=== PATIENT | female | born 2000 | race Caucasian/White ===

== ENCOUNTER 2018-02-11 16:06 | Emergency (ER) | payer BC, SELFPAY ==
[2018-02-11 16:07] VITALS: BP 117/72; PULSE 84; RESP 16; TEMP 36.3; O2SAT 95; BMI 22.1
--- NOTE | 2018-02-11 16:24 | ED.DCSUM_ITS ---
- ER Visit Summary Date of Service: 02/11/18 Chief Complaint: Left ankle injury History of Present Illness: The patient is a 17 F presenting with left ankle injury. Patient states she stepped down off a trampoline yesterday and rolled her left ankle. She fell to the ground but did not hit her head or lose consciousness. She has been using ice, crutches and ibuprofen at home. She has history of multiple previous ankle sprains in the past. Physical Examination: Vitals are stable. Patient is afebrile. Alert no acute distress. HEENT exam is unremarkable. Lungs are clear and equal bilaterally. Heart is regular rate and rhythm. Extremities left lateral ankle tenderness, no fifth metatarsal tenderness, no proximal fibular tenderness. Garsia test negative. Skin is warm and dry. Remainder of exam is unremarkable. Emergency Department Course and Treatment: Ice pack was applied. X-ray of the left ankle shows no acute process. She is advised to ice and elevate. Advised to continue using crutches and NSAIDs for pain. Advised to follow-up with her primary care physician. Advised return ED for worsening complaints. Disposition: Discharge home Impression: Left ankle sprain This note was generated with [email or web address] dictation software. It may contain incorrect words, spelling, and punctuation that were not noted in review of the chart prior to signing ED Disposition - Plan for ED Patient: Chief Complaint: Lower Extremity Injury Referrals: Jose Kwon DO [Primary Care Provider] -
--- NOTE | 2018-02-11 16:25 | RAD_ITS ---
STUDY: X-RAY - LEFT ANKLE REASON FOR EXAM: Female, 17 years old. Injury. Pain. TECHNIQUE: 3 view(s) of the ankle. COMPARISON: None. FINDINGS: Normal visualized distal tibia and fibula. Normal medial and lateral malleoli. Normal tibiotalar articulation and ankle mortise. Normal visualized talus and calcaneus. The visualized subtalar, talonavicular, calcaneocuboid and tarsal articulations are normal. There is no demonstrated fracture. The soft tissue structures are unremarkable. RAD/Ankle min 3 Views IMPRESSION: Normal x-ray examination of the ankle. Electronically Signed: Max Traylor MD at 17:16 EDT , Service support ,
--- OUTSIDE RECORDS SUMMARY | 2018-02-11 17:15 | XMS RPT_ITS | Clinical Summary ---
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 STORY EDITOR amenorrhea Headaches 26121897 Active Sandy S Headache (SNOMED CT) Chayo STORY EDITOR Medications Medication Instructions Start Stop Generic Name NDC Provider Date Date MEDROXYPROGESTERONE One tablet by 2016/ MEDROXYPROGESTERONE [id number] Sandy S ACETATE 10 MG TABS mouth daily 01/31 02/05 ACETATE [place] STORY EDITOR CELEXA 40 MG TABS One tablet by CITALOPRAM [id number] Sandy S mouth daily HYDROBROMIDE [place] STORY EDITOR MAGNESIUM 400 MG One tablet by MAGNESIUM [id number] Sandy S TABS mouth daily 01/31 Chayo STORY EDITOR RIBOFLAVIN CAPS One tablet by RIBOFLAVIN CAPS [id number] Sandy S mouth daily Chayo STORY EDITOR MULTIVITAMIN LIQD One tablet by MULTIPLE [id number] Sandy S mouth daily VITAMINS-MINERALS Chayo STORY EDITOR Medications Administered No information available. Allergies, Adverse Reactions, Alerts Allergy Name Reaction Description Start Date Severity Status Provider AMOXICILLIN Hives Critical Active Sandy S [place] STORY EDITOR Results Date Name Value Unit Range Flag Description Office Visit: Annual PREG TST URN negative beta HCG, urine, semiquantitative FALLRSKASSES No Fall risk assessment MEDS REVIEW Done Documentation of current medications (procedure) ORALTOBACUSE Never Tobacco smoking status NHIS SMOK STATUS Never smoker Tobacco use [facility] Lab Report: CT/NG [facility] BY PCR GONO PCR Negative Negative Neisseria gonorrhoeae DNA [ Presence] in Unspecified specimen by Probe and target amplification method CHLAMYD PCR Negative Negative Chlamydia trachomatis DNA [ Presence] in Urine by Probe and target amplification method Plan of Care Type Date Detail Pending order *GC/Chlamydia Pending order *GC/Chlamydia Procedures Code Procedure Name Date Entry Date CPT-12626 Urine (Office) 0752-1 *GC/Chlamydia Vital Signs Date Name Value Unit Description BMI (Body Mass Index) 20.29 kg/m2 Body Mass Index [Ratio] Body Temperature 98.5 [degF] temperature E&M Body Temperature 36.94 [place] temperature in centigrade E&M BP Diastolic 65 mm[Hg] blood pressure, diastolic - 8462-4 BP Systolic 102 mm[Hg] blood pressure, systolic - 8480-6 Heart Rate 67 /min pulse rate E&M - 8867-4 Height 64 [in_us] height E&M - 8302-2 Height 162.56 cm height in centimeters E&M Respiratory Rate 16 /min respiratory rate E&M - 9279-1 Weight Measured 118.2 [lb_av] weight E&M - 3141-9 Weight Measured 53.61 kg weight in kilograms E&M
--- OUTSIDE RECORDS SUMMARY | 2018-02-11 17:15 | XMS RPT_ITS | Clinical Summary ---
:2000 Author Organization [facility], [facility] Address [address] [place] [address] Phone Care Team Providers Name Role Phone Chayo HEEL ATTACHER WOOD, Sandy S Unavailable Conditions or Problems Problem Name Problem Code Onset Status Entry Provider Comment Standard Annotate Date Date Description Std 202797024 Active Sandy S Venereal screening (SNOMED CT) / [place] disease HEEL ATTACHER WOOD screening Amenorrhea, 67498796 Active Sandy S Secondary secondary (SNOMED CT) / Chayo physiologic HEEL ATTACHER WOOD amenorrhea Headaches 24886149 Active Sandy S Headache (SNOMED CT) Chayo HEEL ATTACHER WOOD Medications Medication Instructions Start Stop Generic Name NDC Provider Date Date MEDROXYPROGESTERONE One tablet by 2016/ MEDROXYPROGESTERONE [id number] Sandy S ACETATE 10 MG TABS mouth daily 01/31 02/05 ACETATE [place] HEEL ATTACHER WOOD CELEXA 40 MG TABS One tablet by CITALOPRAM [id number] Sandy S mouth daily HYDROBROMIDE [place] HEEL ATTACHER WOOD MAGNESIUM 400 MG One tablet by MAGNESIUM [id number] Sandy S TABS mouth daily 01/31 Chayo HEEL ATTACHER WOOD RIBOFLAVIN CAPS One tablet by RIBOFLAVIN CAPS [id number] Sandy S mouth daily Chayo HEEL ATTACHER WOOD MULTIVITAMIN LIQD One tablet by MULTIPLE [id number] Sandy S mouth daily VITAMINS-MINERALS Chayo HEEL ATTACHER WOOD Medications Administered No information available. Allergies, Adverse Reactions, Alerts Allergy Name Reaction Description Start Date Severity Status Provider AMOXICILLIN Hives Critical Active Sandy S [place] HEEL ATTACHER WOOD Results Date Name Value Unit Range Flag [...] Procedures Code Procedure Name Date Entry Date CPT-92536 Urine (Office) 0752-1 *GC/Chlamydia Vital Signs Date [...]
--- OUTSIDE RECORDS SUMMARY | 2018-02-11 17:15 | XMS RPT_ITS | Clinical Summary ---
:2000 Author Organization [facility], [facility] Address [address] [place] [address] Phone Care Team Providers Name Role Phone Chayo PLANT CULTURE MANAGER, Sandy S Unavailable Conditions or Problems Problem Name Problem Code Onset Status Entry Provider Comment Standard Annotate Date Date Description Std 266935912 Active Sandy S Venereal screening (SNOMED CT) / [place] disease PLANT CULTURE MANAGER screening Amenorrhea, 22938660 Active Sandy S Secondary secondary (SNOMED CT) / Chayo physiologic PLANT CULTURE MANAGER amenorrhea Headaches 69368202 Active Sandy S Headache (SNOMED CT) Chayo PLANT CULTURE MANAGER Medications Medication Instructions Start Stop Generic Name NDC Provider Date Date MEDROXYPROGESTERONE One tablet by 2016/ MEDROXYPROGESTERONE [id number] Sandy S ACETATE 10 MG TABS mouth daily 01/31 02/05 ACETATE [place] PLANT CULTURE MANAGER CELEXA 40 MG TABS One tablet by CITALOPRAM [id number] Sandy S mouth daily HYDROBROMIDE [place] PLANT CULTURE MANAGER MAGNESIUM 400 MG One tablet by MAGNESIUM [id number] Sandy S TABS mouth daily 01/31 Chayo PLANT CULTURE MANAGER RIBOFLAVIN CAPS One tablet by RIBOFLAVIN CAPS [id number] Sandy S mouth daily Chayo PLANT CULTURE MANAGER MULTIVITAMIN LIQD One tablet by MULTIPLE [id number] Sandy S mouth daily VITAMINS-MINERALS Chayo PLANT CULTURE MANAGER Medications Administered No information available. Allergies, Adverse Reactions, Alerts Allergy Name Reaction Description Start Date Severity Status Provider AMOXICILLIN Hives Critical Active Sandy S [place] PLANT CULTURE MANAGER Results Date Name Value Unit Range Flag Description Office Visit: Annual PREG TST URN negative beta HCG, urine, semiquantitative FALLRSKASSES No Fall risk assessment MEDS REVIEW Done Documentation of current medications (procedure) ORALTOBACUSE Never Tobacco smoking status NHIS SMOK STATUS Never smoker Tobacco use [facility] Lab Report: CT/[facility] BY PCR GONO PCR Negative Negative Neisseria gonorrhoeae DNA [ Presence] in Unspecified specimen by Probe and target amplification method CHLAMYD PCR Negative Negative Chlamydia trachomatis DNA [ Presence] in Urine by Probe and target amplification method Plan of Care Type Date Detail Pending order *GC/Chlamydia Pending order *GC/Chlamydia Procedures Code Procedure Name Date Entry Date CPT-90595 Urine (Office) 0752-1 *GC/Chlamydia Vital Signs Date [...]
--- OUTSIDE RECORDS SUMMARY | 2018-02-11 17:15 | XMS RPT_ITS | Clinical Summary ---
:2000 Author Organization [facility], [facility] Address [address] [place] [address] Phone Care Team Providers Name Role Phone [place] LEAN COACH, Sandy S Unavailable Conditions or Problems Problem Name Problem Code Onset Status Entry Provider Comment Standard Annotate Date Date Description Std 894180752 Active Sandy S Venereal screening (SNOMED CT) / [place] disease LEAN COACH screening Amenorrhea, 70812190 Active Sandy S Secondary secondary (SNOMED CT) / [place]ayo physiologic LEAN COACH amenorrhea Headaches 68734093 Active Sandy S Headache (SNOMED CT) / Chayo LEAN COACH Medications Medication Instructions Start Stop Generic Name NDC Provider Date Date AVIANE 0.1-20 MG-MCG One tablet by LEVONORGESTREL-ETHIN [id number] Sandy S TABS mouth daily 02/17 YL ESTRAD Chayo LEAN COACH MEDROXYPROGESTERONE One tablet by 2016/ MEDROXYPROGESTERONE [id number] Sandy S ACETATE 10 MG TABS mouth daily 01/31 02/05 ACETATE Chay[place] LEAN COACH CELEXA 40 MG TABS One tablet by CITALOPRAM [id number] Sandy S mouth daily HYDROBROMIDE [place] LEAN COACH MAGNESIUM 400 MG One tablet by MAGNESIUM 46657128025 Sandy S TABS mouth daily 01/31 Chayo LEAN COACH RIBOFLAVIN CAPS One tablet by RIBOFLAVIN CAPS [id number] Sandy S mouth daily [place] LEAN COACH MULTIVITAMIN LIQD One tablet by MULTIPLE [id number] Sandy S mouth daily VITAMINS-MINERALS [place] LEAN COACH Medications Administered No information available. Allergies, Adverse Reactions, Alerts Allergy Name Reaction Description Start Date Severity Status Provider AMOXICILLIN Hives Critical Active Sandy S [place] LEAN COACH Results Date Name Value Unit Range Flag Description Office Visit: Annual PREG TST URN negative beta HCG, urine, semiquantitative FALLRSKAKARMAES No Fall risk assessment MEDS REVIEW Done Documentation of current medications (procedure) ORALTOBACUSE Never Tobacco smoking status NHIS SMOK STATUS Never smoker Tobacco use [facility] Lab Report: CT/[facility] BY PCR GONO PCR Negative Negative Neisseria gonorrhoeae DNA [ Presence] in Unspecified specimen by Probe and target amplification method CHLAMYD PCR Negative Negative Chlamydia trachomatis DNA [ Presence] in Urine by Probe and target amplification method Plan of Care Type Date Detail Pending order *GC/Chlamydia Pending order *GC/Chlamydia Procedures Code Procedure Name Date Entry Date CPT-12304 Urine (Office) 0752-1 *GC/Chlamydia Vital Signs Date [...]
--- OUTSIDE RECORDS SUMMARY | 2018-02-11 17:15 | XMS RPT_ITS | Clinical Summary ---
:2000 Author Organization [facility], [facility] Address [address] [place] [address] Phone Care Team Providers Name Role Phone Chayo PREVENTIVE MEDICINE PHYSICIAN, Sandy S Unavailable Conditions or Problems Problem Name Problem Code Onset Status Entry Provider Comment Standard Annotate Date Date Description Std 167187132 Active Sandy S Venereal screening (SNOMED CT) / [place] disease PREVENTIVE MEDICINE PHYSICIAN screening Amenorrhea, 61309507 Active Sandy S Secondary secondary (SNOMED CT) / [place] physiologic PREVENTIVE MEDICINE PHYSICIAN amenorrhea Headaches 77514539 Active Sandy S Headache (SNOMED CT) [place] PREVENTIVE MEDICINE PHYSICIAN Medications Medication Instructions Start Stop Generic Name NDC Provider Date Date MEDROXYPROGESTERONE One tablet by 2016/ MEDROXYPROGESTERONE [id number] Sandy S ACETATE 10 MG TABS mouth daily 01/31 02/05 ACETATE [place] PREVENTIVE MEDICINE PHYSICIAN CELEXA 40 MG TABS One tablet by CITALOPRAM [id number] Sandy S mouth daily HYDROBROMIDE [place] PREVENTIVE MEDICINE PHYSICIAN MAGNESIUM 400 MG One tablet by MAGNESIUM 43342340230 Sandy S TABS mouth daily 01/31 Chayo PREVENTIVE MEDICINE PHYSICIAN RIBOFLAVIN CAPS One tablet by RIBOFLAVIN CAPS 21826675276 Sandy S mouth daily [place] PREVENTIVE MEDICINE PHYSICIAN MULTIVITAMIN LIQD One tablet by MULTIPLE [phone] Sandy S mouth daily VITAMINS-MINERALS [place] PREVENTIVE MEDICINE PHYSICIAN Medications Administered No information available. Allergies, Adverse Reactions, Alerts Allergy Name Reaction Description Start Date Severity Status Provider AMOXICILLIN Hives Critical Active Sandy S [place] PREVENTIVE MEDICINE PHYSICIAN Results Date Name Value Unit Range Flag Description Office Visit: Annual PREG TST URN negative beta HCG, urine, semiquantitative FALLRSKASSES No Fall risk assessment MEDS REVIEW Done Documentation of current medications (procedure) ORALTOBACUSE Never Tobacco smoking status NHIS SMOK STATUS Never smoker Tobacco use [facility] Plan of Care Type Date Detail Appointment 10:20 AM Sandy Domingo NP, [address], [address], [place], [address], Pending order *GC/Chlamydia Procedures Code Procedure Name Date Entry Date CPT-81084 Urine (Office) Vital Signs Date Name Value Unit Description [...]
--- OUTSIDE RECORDS SUMMARY | 2018-02-11 17:15 | XMS RPT_ITS | Clinical Summary ---
:[address] [facility], [facility] Address [address] [place] [address] Phone Care Team Providers Name Role Phone [place] FISH INSPECTOR, Sandy S Unavailable Conditions or Problems Problem Name Problem Code Onset Status Entry Provider Comment Standard Annotate Date Date Description Std 874211647 Active Sandy S Venereal screening (SNOMED CT) / [place] disease FISH INSPECTOR screening Amenorrhea, 53581229 Active Sandy S Secondary secondary (SNOMED CT) / [place] physiologic FISH INSPECTOR amenorrhea Headaches 33867044 Active Sandy S Headache (SNOMED CT) / [place] FISH INSPECTOR Medications Medication Instructions Start Stop Generic Name NDC Provider Date Date AVIANE 0.1-20 MG-MCG One tablet by LEVONORGESTREL-ETHIN [id number] Sandy S TABS mouth daily 02/17 YL ESTRAD Chayo FISH INSPECTOR MEDROXYPROGESTERONE One tablet by 2016/ MEDROXYPROGESTERONE [id number] Sandy S ACETATE 10 MG TABS mouth daily 01/31 02/05 ACETATE [place] FISH INSPECTOR CELEXA 40 MG TABS One tablet by CITALOPRAM [id number] Sandy S mouth daily HYDROBROMIDE Ch[place] FISH INSPECTOR MULTIVITAMIN LIQD One tablet by MULTIPLE 07154010691 Sandy S mouth daily VITAMINS-MINERALS [place] FISH INSPECTOR RIBOFLAVIN CAPS One tablet by RIBOFLAVIN CAPS 53749219348 Sandy S mouth daily Chayo FISH INSPECTOR MAGNESIUM 400 MG One tablet by MAGNESIUM 14947437653 Sandy S TABS mouth daily 01/31 [place] FISH INSPECTOR Medications Administered No information available. Allergies, Adverse Reactions, Alerts Allergy Name Reaction Description Start Date Severity Status Provider AMOXICILLIN Hives Critical Active Sandy S [place] FISH INSPECTOR Results Date Name Value Unit Range Flag Description Office Visit: Annual PREG TST URN negative beta HCG, urine, semiquantitative FALLRSKASSES No Fall risk assessment MEDS REVIEW Done Documentation of current medications (procedure) ORALTOBACUSE Never Tobacco smoking status NHIS SMOK STATUS Never smoker Tobacco smoking status [facility] Lab Report: CT/[facility] BY PCR GONO PCR Negative Negative Neisseria gonorrhoeae DNA [ Presence] in Unspecified specimen by Probe and target amplification method CHLAMYD PCR Negative Negative Chlamydia trachomatis DNA [ Presence] in Urine by Probe and target amplification method Plan of Care Type Date Detail Pending order *GC/Chlamydia Pending order *GC/Chlamydia Procedures Code Procedure Name Date Entry Date 0752-1 *GC/Chlamydia CPT-30450 Urine (Office) 0752-1 *GC/Chlamydia Vital Signs Date [...]
--- OUTSIDE RECORDS SUMMARY | 2018-02-11 17:16 | XMS RPT_ITS ---
:2000 Author Organization OHIP Care Team Providers Name Role Phone Sandy Domingo Attending Unavailable Sandy Domingo Attending Unavailable Sandy Domingo Attending Unavailable Shital Taylor Attending Unavailable MAKEDA ACOSTA Referring Unavailable MAKEDA ACOSTA Attending Unavailable KRISTIAN QUINONES Referring Unavailable SHYLA SHAFFER Attending Unavailable ACOSTA, MAKEDA M Referring Unavailable ACOSTA, MAKEDA M Attending Unavailable KRISTIAN QUINONES Referring Unavailable JESSICA UNDERWOOD Attending Unavailable FABIOLA BEARDEN F Referring Unavailable MONISHA FABIOLA F Primary Care Unavailable MONISHA FABIOLA Attending Unavailable MONISHA FABIOLA Primary Care Unavailable DR. ZAIN BOND DO Attending Unavailable MONISHAFABIOLA Hermosillo Primary Care Unavailable ACOSTA, MAKEDA Attending Unavailable MONISHA DO, FABIOLA F Primary Care Unavailable [facility] Referring Unavailable ACOSTA, MAKEDA Referring Unavailable MONISHA DO, FABIOLA F Primary Care Unavailable ACOSTA, MAKEDA Referring Unavailable MONISHA DO, FABIOLA F Primary Care Unavailable ACOSTA, MAKEDA Attending Unavailable ACOSTA, MAKEDA Referring Unavailable MONISHA DO, FABIOLA F Primary Care Unavailable ACOSTA, MAKEDA Referring Unavailable MONISHA DO, FABIOLA F Primary Care Unavailable ACOSTA, MAKEDA Attending Unavailable MONISHA , FABIOLA F Primary Care Unavailable [facility] Referring Unavailable [facility] ([place]) Referring Unavailable PROBLEMS PROBLEMS DATE TYPE CONDITION / CODE ATTENDING STATUS SOURCE 09/22/2017 Unknown N92.6 - Irregular Sandy Domingo Active [place] menstruation, Community unspecified / Hospital N92.6(ICD-10) Repository 09/22/2017 Unknown Z30.41 - Encounter Sandy Domingo Active [place] for surveillance of Community contraceptive pills Hospital / Z30.41(ICD-10) Repository 09/20/2017 Active Unspecified injury NA Active [place] of left wrist, hand Clinic [facility] and finger(s), [place] initial encounter / Repository S69.92XA(ICD-10) 08/25/2017 Active Intercostal pain / JAKUBOWYCZ, Active [place] R07.82(ICD-10) [facility] Other [place] Repository 07/26/2017 Active Mastodynia / ACOSTA, Active [place] N64.4(ICD-10) MAKEDA [facility] Other [place] Repository 01/21/2017 Active Diffuse cystic ACOSTA, Active [place] mastopathy of left [facility] Other breast / [place] N60.12(ICD-10) Repository 07/26/2017 Admitting Unknown / ACOSTA, Active [facility] diagnosis UNK(Unknown) [facility] Repository 07/26/2017 Active Unknown / NA Active [place] UNK(Unknown) [facility] Other [place] Repository 07/14/2017 Unknown Z11.3 - Encounter Sandy Domingo Active [place] for screening for Community infections with a Hospital predominantly Repository sexual mode of transmission / Z11.3(ICD-10) PROCEDURES PROCEDURES No Procedure Records FoundRESULTS RESULTS PROGRESS Observed: 01/31/2018 Status: COMPLETED Source: [facility] 2:11 PM CLINIC OTHER CAMPUS REPOSITORY HNO ID: [id number]: Makeda Bob: (none) Author Type: PhysicianType: Progress NotesFiled: 01/31/2018 2:18 PMNote Text:Chief Complaint:Patient presents with:Breast Mass: history of left biopsyRecheck: 6 month follow Stacey Bui is a 17 year old female who presents today for her 6 monthfollow up of a palpable left breast mass.She is status post ultrasound guided biopsy of a left palpable breast henry 01/17/2017. Final pathology returned fibrocystic changes and this isconcordant.?Today, she had an ultrasound done of the area that showed a stable benignlobulated area in the left breast 1 o'clock 5 cm from the nipple measuring4 cm x 2 cm x 3.5 cm, BIRADS 2.It occasionally hurts without any specific exacerbating factors andusually resolves without intervention.She denies palpating any other breast masses or axillary adenopathy. Noskin or nipple changes. No nipple discharge.PAST MEDICAL HISTORYDiagnosis Date- Breast mass 2016- Celiac disease- Gastroesophageal reflux disease- Migraine headache- MigrainesPAST SURGICAL HISTORYProcedure Laterality Date- NONE- US BREAST NEEDLE CORE BIOPSY LT Left 2017 fibrocystic changesFAMILY HISTORYProblem Relation Age of Onset- epilepsie [ Other] [OTHER] FatherSocial History Marital status: Single Spouse name: Years of education: Number of children:Social History Main Topics Smoking status: Never Smoker Smokeless tobacco: Never Used Alcohol use: No Drug use: NoSocial History Narrative Merged History Encounter ALLERGIESAllergen Reactions- Amoxicillin Rash- Penicillins RashREVIEW OF SYSTEMSGENERAL: No weight loss, malaise or feversBreast: see HPICurrent Outpatient Prescriptions:ibuprofen (MOTRIN) 800 mg tablet Take 1 tablet by mouth every 8 hours asneeded. Disp: 28 tablet Rfl: 0NORLYDA 0.35 mg tablet Take 1 tablet by mouth once daily. Disp: Rfl:SUMAtriptan (IMITREX) 25 mg tablet Take 25 mg by mouth as needed. Disp:Rfl:citalopram hydrobromide (CELEXA) 10 mg tablet Take 10 mg by mouth oncedaily. Disp: Rfl:magnesium oxide 400 mg cap Take 400 mg by mouth once daily. Disp: Rfl:RIBOFLAVIN (VITAMIN B-2 ORAL) Take 400 mg by mouth once daily. Disp: Rfl: No current facility-administered medications for this visit.BP 104/65 Pulse 91 Ht 5' 3 (1.60m) Wt 112 lb (50.8kg) BMI 19.84kg/(m2).PHYSICAL EXAMINATIONGeneral appearance: alert, well appearing, and in no distressMental status: alert, oriented to person, place and timeNeck: supple, no significant adenopathyBreast Exam: On visual in spection of the breasts finds them to beBreasts: symmetric without skin changes or nipple retraction. Whilesitting upright, there were no breast defects or differences noted witharms down, above the head or on her waist.RIGHTSkin changes: NoNipple retraction:NoAxillary adenopathy: NoSupraclavicular adenopathy: NoPalpable masses: NoTenderness: NoNipple discharge: NoLEFTSkin changes:NoNipple retraction:NoAxillary adenopathy: NoSupraclavicular adenopathy: NoPalpable masses: 1:00 5CFN measuring 3.5 cm x 3 cm; soft and mobile-unchangedTenderness: NoNipple discharge: NoASSESSMENT/PLANFibrocystic changes of left breastMsSulema Bui is a 17 year old female here today for a 6 month follow up.She is status post ultrasound guided biopsy of a left palpable breast henry 01/17/2017. Final pathology returned fibrocystic changes and this isconcordant.Today, the mass is unchanged on ultrasound and clinical exam.It is occasionally painful and she was offered excision rather thanobservation. She would like to continue observation. I would plan tofollow up for 1 more year just with clinical exam.She should continue monthly self breast exams and call with any concerns.Makeda Acosta MD01/31/20182:11 PM CNOV Observed: 01/31/2018 Status: COMPLETED Source: [place] 2:00 PM CLINIC OTHER CAMPUS REPOSITORY Office Visit (AGGBRCR) DARRYL BUI ([id number]) 2000 [facility] Provider Department01/31/18 2:00 PM MAKEDA ACOSTA AGGBR During your visit today, we recorded the following information about you: Pulse Blood pressure Weight Height 91/minute 104/65 50.8 kg 1.6 William Washington MA 01/31/2018 1:51 PM SignedPatient presents for 6 month follow up of a history of left breast biopsy.Patient relates she does have tenderness at biopsy site but no new lumps.Patients imaging today is benign.David Wong MD 01/31/2018 2:18 PM SignedChief Complaint:Patient presents with:Breast Mass: history of left biopsyRecheck: 6 month follow Stacey Bui is a 17 year old female who presents today for her 6 monthfollow up of a palpable left breast mass.She is status post ultrasound guided biopsy of a left palpable breast mass on01/17/2017. Final pathology returned fibrocystic changes and this is concordant.?Today, she had an ultrasound done of the area that showed a stable benignlobulated area in the left breast 1 o'clock 5 cm from the nipple measuring 4 cmx 2 cm x 3.5 cm , BIRADS 2.It occasionally hurts without any specific exacerbating factors and usuallyresolves without intervention.She denies palpating any other breast masses or axillary adenopathy. No skin ornipple changes. No nipple discharge.PAST MEDICAL HISTORYDiagnosis Date- Breast mass 2016- Celiac disease- Gastroesophageal reflux disease- Migraine headache- MigrainesPAST SURGICAL HISTORYProcedure Laterality Date- NONE- US BREAST NEEDLE CORE BIOPSY LT Left 2017 fibrocystic changesFAMILY HISTORYProblem Relation Age of Onset- epilepsie [Other] [OTHER] FatherSocial History Marital status: Single Spouse name: Years of education: Number of children:Social History Main Topics Smoking status: Never Smoker Smokeless tobacco: Never Used Alcohol use: No Drug use : NoSocial History Narrative Merged History Encounter ALLERGIESAllergen Reactions- Amoxicillin Rash- Penicillins RashREVIEW OF SYSTEMSGENERAL: No weight loss, malaise or feversBreast: see HPICurrent Outpatient Prescriptions:ibuprofen (MOTRIN) 800 mg tablet Take 1 tablet by mouth every 8 hours asneeded. Disp: 28 tablet Rfl: 0NORLYDA 0.35 mg tablet Take 1 tablet by mouth once daily. Disp: Rfl:SUMAtriptan (IMITREX) 25 mg tablet Take 25 mg by mouth as needed. Disp: Rfl:citalopram hydrobromide (CELEXA) 10 mg tablet Take 10 mg by mouth once daily.Disp: Rfl: magnesium oxide 400 mg cap Take 400 mg by mouth once daily. Disp: Rfl:RIBOFLAVIN (VITAMIN B-2 ORAL) Take 400 mg by mouth once daily. Disp: Rfl:No current facility-administered medications for this visit.BP 104/65 Pulse 91 Ht 5' 3 (1.60m) Wt 112 lb (50.8kg) BMI 19.84kg/(m2).PHYSICAL EXAMINATIONGeneral appearance: alert, well appearing, and in no distressMental status: alert, oriented to person, place and timeNeck: supple, no significant adenopathyBreast Exam: On visual in spection of the breasts finds them to beBreasts: symmetric without skin changes or nipple retraction. While sittingupright, there were no breast defects or differences noted with arms down,above the head or on her waist.RIGHTSkin changes: NoNipple retraction:NoAxillary adenopathy: NoSupraclavicular adenopathy: NoPalpable masses: NoTenderness: NoNipple discharge: NoLEFTSkin changes:NoNipple retraction:NoAxillary adenopathy: NoSupraclavicular adenopathy: NoPalpable masses: 1:00 5CFN measuring 3.5 cm x 3 cm; soft and mobile- unchangedTenderness: NoNipple discharge: NoASSESSMENT/PLANFibrocystic changes of left breastMsSulema Bui is a 17 year old female here today for a 6 month follow up.She is status post ultrasound guided biopsy of a left palpable breast mass on01/17/2017. Final pathology returned fibrocystic changes and this is concordant.Today, the mass is unchanged on ultrasound and clinical exam.It is occasionally painful and she was offered excision rather thanobservation. She would like to continue observation. I would plan to follow upfor 1 more year just with clinical exam.She should continue monthly self breast exams and call with any concerns.Makeda Acosta MD01/31/20182:11 [facility]ITALwilfred Acosta MD 01/31/2018 2: 18 PM WrittenMsSulema Bui is a 17 year old female here today for a 6 month follow up.She is status post ultrasound guided biopsy of a left palpable breast mass on01/17/2017. Final pathology returned fibrocystic changes and this is concordant.Today, the mass is unchanged on ultrasound and clinical exam.It is occasionally painful and she was offered excision rather thanobservation. She would like to continue observation. I would plan to follow upfor 1 more year just with clinical exam.She should continue monthly self breast exams and call with any concerns.Referring Provider: KRISTIAN QUINONES [[id number]]Allergies As of Date: 01/31/2018 Noted Allergy ReactionAMOXICILLIN 12/21/2012 2 - RashPENICILLINS 09/12/2015 2 - RashDate Reviewed: 01/31/2018Reviewed by: Makeda Acosta - Fully AssessedReason for Visit: Breast Mass [284] Cmt: history of left biopsy Recheck [92] Cmt: 6 month follow upPrimary Visit Diagnosis:Fibrocystic changes of left breast [N60.12] Other Visit Diagnosis:Breast pain [N64.4]Prescriptions as of 01/31/2018 Sig: IBUPROFEN 800 MG TABLET Take 1 tablet by mouth every * NORLYDA 0.35 MG TABLET Take 1 tablet by mouth once d* SUMATRIPTAN 25 MG TABLET Take 25 mg by mouth as needed* CITALOPRAM 10 MG TABLET Take 10 mg by mouth once shruthi* MAGNESIUM OXIDE 400 MG CAPSULE Take 400 mg by mouth once bennett* VITAMIN B-2 ORAL Take 400 mg by mouth once bennett*Problem List As Of Date 01/31/2018 Noted Resolved Lump or mass in breast [N63.0] INVALID FOR*01/09/2016 More... Solitary cyst of left breast [N60.02] INVALID FOR*01/09/2016 Diffuse cystic mastopathy of left breast [N60.1*INVALID FOR*01/07/2017 More... Lump or mass in breast [ N63.0] INVALID FOR*01/21/2017 More... Fibrocystic changes of left breast [N60.12] INVALID FOR* More... Breast pain [N64.4] INVALID FOR* More...Visit Notes:>> Deborah Carrillo Jan 31, 2018 1:50 PM Status: SignedPatient presents for 6 month follow up of a history of left breast biopsy. Patient relates she does have tenderness at biopsy site but no new lumps. Patients imaging today is benign.Deborah Washington, MAMedications Discontinued During This Encounter propranolol (INDERAL) 20 mg tablet 07/25/2017 01/31/2018 Class: Historical Med Route: ORAL Sig: Take 20 mg by mouth once daily. Disc: Discontinued by another Health Care ProviderLevel of Service: EST PATIENT VISIT LEVEL 3 [[id number]]Disposition: Return in about 6 months (around 08/03/2018).Follow-up and Disposition History RecordedEncounter Number: [id number] Status:Closed by MAKEDA ACOSTA MD on 01/31/18 Caterna Observed: 01/31/2018 Status: F Source: [facility] 12:49 PM HEALTH SYSTEM REPOSITORY Performed at [facility] APPROVED BY: Irvin Noble MD #[id number] - Caterna LEFTULTRASOUND OF LEFT BREAST: 01/31/2018CLINICAL: Follow up on previous left breast biopsy. Comparison ultrasounds dated 07/26/17 and 01/07/17.Color flow and real-time ultrasound of the left breast were performed. There is a stable benign 4.0 cm x 2.0 cm x 3.5 cm lobulated area in the left breast at 1 o'clock middle depth 5 cm from the nipple. This lobulated area is hypoechoic and septated. This correlates with the previous biopsy, appearing similar to prior exams. Color flow imaging demonstrates that there is no increase in vascularity. IMPRESSION: BENIGN There is no sonographic evidence of malignancy. The stable 4.0 cm x 2.0 cm x 3.5 cm lobulated area in the left breast at 1 o' clock middle depth is consistent with fibrocystic change and is benign. Irvin Noble M.D. djg/:01/31/2018 12:49:22 copy to: FABIOLA BEARDEN DO Diesel Engine Fitter: Yokasta Mendoza RDMS, [facility] Center Ultrasound BI-RADS: 2 Benign OFFICE VISIT (URGENT Observed: 01/19/2018 Status: UNK [facility] 12:21 PM HOSPITALS REPOSITORY Chief Complaint Visit For: Other History of Present [age]kcw3 yo female here after exposure to head lice. 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 has known dry flaky scalp, now with increased itching. Active Problems Contusion of left knee (924.11) (S80.02XA) Knee injury (959.7) (S89.90XA) Social History Never a smoker Allergies Penicillins Recorded By: ZoeOctober; 11/24/2015 12:28:46 PM Current Meds CeleXA 10 MG Oral Tablet (Citalopram Hydrobromide);Therapy: (Recorded:95Obh8799) to Recorded Dispense: 0 Days ; #: Sufficient TABS; Refill: 0; DEVENDRA = N; Record; Last Updated By: ZoeOctober; 11/24/2015 12:28:46 PM Citalopram Hydrobromide 20 MG Oral Tablet; take 1 tablet by mouth once daily;Therapy: 28Oct2015 to Recorded Rx By: AMBER ALVAREZ; Dispense: 30 Days ; #:30 TABS; Refill: 0; DEVENDRA = N; Record; Last Updated By: Bryan Rodriguez; 11/24/2015 12:35:49 PM Riboflavin CAPS;Therapy: (Recorded:85Rlw8981) to Recorded Dispense: 0 Days ; #: Sufficient CAPS; Refill: 0; DEVENDRA = N; Record; Last Updated By: ZoeOctober; 01/19/2018 11:58:27 AM SUMAtriptan 20 MG/ACT Nasal Solution; instill 1 spray IN LEFT NOSTRIL if needed;Therapy: 21Oct2015 to Recorded Rx By: JESSICA UNDERWOOD; Dispense: 23 Days ; #:6 SOLN; Refill: 0; DEVENDRA = N; Record; Last Updated By: Bryan Rodriguez; 11/24/2015 12:35:49 PM Topiramate 50 MG Oral Tablet;Therapy: 08May2015 to Recorded Dispense: 30 Days ; #:60 TABS; Refill: 0; DEVENDRA = N; Record; Last Updated By: Bryan Rodriguez; 11/24/2015 12:35:49 PM Vitamin B-2 100 MG Oral Tablet;Therapy : (Recorded:24Nov2015) to Recorded Dispense: 0 Days ; #: Sufficient TABS; Refill : 0; DEVENDRA = N; Record; Last Updated By: ZoeOctober; 11/24/2015 12:28:46 PM Vitals Vital Signs Recorded: 19Jan2018 11:47CVIwhrqjolvwh08.7 FHeart Xmcd90Cwpubcfvkqw09Htsbdvva352Xgqyrvooy87Sizemp7 ft 3 oaSeyuxw521 lb BMI Mbwkmgenoo53.37BSA Calculated1.53BMI Xmzrcozzvz77 %2-20 Stature Jpxkkfbqse30 %2 -20 Weight Juegsxjfom77 %O2 Lbrzxinpvq780IHP9 month agoPain Scale0 Physical ExamGen - No apparent distressScalp- very dry flaky scalp. No evidence of organisms. Difficult to tell if a few nits may be present Diagnoses/Problems Itchy scalp (698.9) ( L29.9) OrdersItchy scalp Start: Permethrin 5 % External Cream; APPLY DIRECTED Rx By: Dontae Guadarrama; Dispense: 0 Days ; #:1 X 60 GM Tube; Refill: 0;For: Itchy scalp ; DEVENDRA = N; Sent To: [place] [address] [address] [facility] Provider Impressions1. Exposure to head lice- poss nits seen. Permethrin End of Encounter MedsCeleXA 10 MG Oral Tablet (Citalopram Hydrobromide);Therapy: (Recorded:81Tbo3175) to RecordedCitalopram Hydrobromide 20 MG Oral Tablet; take 1 tablet by mouth once daily;Therapy: 28Oct2015 to RecordedPermethrin 5 % External Cream; APPLY DIRECTED;Therapy: 19Jan2018 to (Last Rx:19Jan2018) OrderedRiboflavin CAPS;Therapy: (Recorded:19Jan2018) to RecordedSUMAtriptan 20 MG/ACT Nasal Solution; instill 1 spray IN LEFT NOSTRIL if needed;Therapy: 21Oct2015 to RecordedTopiramate 50 MG Oral Tablet;Therapy: 08May2015 to RecordedVitamin B-2 100 MG Oral Tablet;Therapy: (Recorded:74Lbc2738) to Recorded Signatures Electronically signed by : Dontae Guadarrama MD; Jan 19 2018 12:21PM EST (Author) 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 [place] [address] [id number] VISITDate of Service: 09/22/17MR#: [id number] Acct: [id number]: DARRYL BUI Rep #: [id number]: 2000 Provider: RAUL Zambrano/Sex: 17/F Location: [facility] [place].BWtatus: SignedIntakeVital Signs09/22/17 Height 5 ft 3 in09/22/17 Weight: 132 lb09/22/17 Body Mass Index (BMI) 23.303 Blood Pressure 100/65IntakeVisit Reasons: MED FUIs patient in pain?: NoAllergiesamoxicillin Allergy (Mild, Verified 09/22/17 15:40)Otherpenicillin G Allergy (Mild, Verified 09/22/17 15:40)OtherMedicationscitalopram 20 mg tablet 20 mg PO QDAY 07/12/17 [History Confirmed 09/22/17]norethindrone (contraceptive) 0.35 mg tablet 0.35 mg PO QDAY #84 tab 09/22/17 [Rx Fnsndiayz49/22/18]Is last menstrual period known: NoPost menopausal: NoPatient : NoBreastfeeding: NoPFSHMedical History ( Reviewed 09/22/17 @ 15:40 by Shital Loving)Anxiety and depression (Acute)Family History Mother ArthritisFibromyalgiaFather EpilepsySocial HistorySmoking Status: Never smokeralcohol intake: neversubstance use type: does not usecaffeine: Yesfrequency: 1-2 times per weekseatbelt use : alwaysdo you feel safe at home: YesHPIMED FU:Details: DARRYL BUI is a 17 year old who presents for follow up to start of sonja forcontraception. States is working well. She is not having any menses with OCP. She didpregnancy test 2 days ago and negative. She denies missing pills. History of migraines withaura and avoid estrogen containing medication.Pregancy HistoryGravida 1 Elective abortionsHx Para 0 Spontaneous abortionsAssessment AND PlanProblems1. Irregular menses N92.62. Oral contraceptive pill surveillance Z30.41PlanRefills sonja.RTO 1 year, prn with mxmtldga52 min FTF counseling with patientMedicationsRefilled:CodingLevel of Care CodeOff vis,est,level 3DiagnosesIrregular menses N92.6Oral contraceptive pill surveillance Z30. 1610 <Electronically signed by Sandy PRICE>Date Sandy ROBERTSONCCosigner Signature: Date (if applicable)CC: XR WRIST 3V PA/LAT/OBL Observed: 09/20/2017 Status: F Source: [facility] 5:44 PM CLINIC MAIN CAMPUS REPOSITORY * * *Final Report* * *DATE OF EXAM: Sep 20 2017 5:44PM WOX [id number] - XR WRIST 3V PA/LAT/OBL LT / REASON: Unspecified injury of left wrist, hand and finger(s), initial encounter * * * * Physician Interpretation * * * * 3 VIEWS OF LEFT WRIST 09/20/2017 5:44 PMHISTORY: 17 years Female Unspecified injury of left wrist, hand and finger(s), initial encounterCOMPARISON: None availableRESULTS: There is no identifiable fracture, subluxation, arthritic change , lytic or blastic lesion, or other radiographic abnormality.IMPRESSION:NO ACUTE RADIOGRAPHIC ABNORMALITY.Newspaper Delivery Counselor: URVASHI Transcribe Date/Time: Sep 20 2017 5: 47PDictated by : CHET MORGAN MDThis examination was interpreted and the report reviewed and electronically signed by: CHET MORGAN MD on Sep 20 2017 5:47PM [id number] PROGRESS Observed: 09/20/2017 Status: COMPLETED Source: [place] 5:36 PM [facility] REPOSITORY HNO ID: [id number]: Flynn Marks) Gayla Hickman: (none)Author Type: TechnicianType: Progress NotesFiled: 09/20/2017 5:39 PMNote Text: Radiology Service Progress NotePATIENT NAME: Darryl BuiMRN: [id number] OF SERVICE: September 20, 2017TIME: 5:36 PMPATIENT IDENTITY VERIFICATION COMPLETED USING TWO (2) METHODS: Patientconfirmed name verbally and Date of .PATIENT GENDER DATA: Female. status: : NoBreastfeeding status: NO.PATIENT RELEVANT IMPLANT DATA REVIEWED: Not ApplicableRADIOLOGY DEPARTMENT: General X- ray: Exam(s) Completed: Upper ExtremityX-Ray(s): Wrist, left :PERIPHERAL IV DATA: Not applicableSIGNED BY: RT Jose EliasSep 2017 5:36 PM PROGRESS Observed: 09/20/2017 Status: COMPLETED Source: [place] 5:23 PM [facility] REPOSITORY HNO ID: [id number]: Chapo Perez) AthyService: (none) Author Type: Physician AssistantType: Progress NotesFiled: 09/20/2017 5:59 PMNote Text:SubjectiveHPIPt presents with a left wrist injury. At 315 today she was in a van andfell catching herself on her left wrist. Shes noticed some swelling and ispainful. 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 Disp: 28 tablet Rfl: 0NORLYDA 0.35 mg tablet Take 1 tablet by mouth once daily. Disp: Rfl:propranolol (INDERAL) 20 mg tablet Take 20 mg by mouth once daily. Disp:Rfl:SUMAtriptan (IMITREX) 25 mg tablet Take 25 mg by mouth as needed. Disp:Rfl:citalopram hydrobromide (CELEXA) 10 mg tablet Take 10 mg by mouth oncedaily. Disp: Rfl:magnesium oxide 400 mg cap Take 400 mg by mouth once daily. Disp: Rfl:RIBOFLAVIN (VITAMIN B-2 ORAL) Take 400 mg by mouth once daily. Disp: Rfl: No current facility-administered medications for this visit.PAST SURGICAL HISTORYProcedure Laterality Date- NONE- US BREAST NEEDLE CORE BIOPSY LT Left 2017 fibrocystic changesFAMILY HISTORYProblem Relation Age of Onset- epilepsie [ Other] [OTHER] FatherSocial HistorySubstance Use Topics- Smoking status: Never Smoker- Smokeless tobacco: Never Used- Alcohol use NoPulse 70 Temp 37.1 ?C (98.8 ?F) (Tympanic) Resp 16 Wt 60.3 kg (133lb) LMP 07/24/2017 BMI 23.56 kg/g4IaalqiqsoIspsbkrd ExamConstitutional: She is oriented to person, place, and time andwell-developed, well-nourished, and in no distress.HENT:Head: Normocephalic and atraumatic.Neck: Normal range of motion.Cardiovascular: Normal rate, regular rhythm and normal heart sounds.Pulmonary/Chest: Effort normal and breath sounds normal.Musculoskeletal:Pt has diffuse tenderness of the dorsal wrist. Mild abrasion to the distalulnar wrist. No snuffbox tenderness. Pt has increased pain on flexion andextension as well at pronation and supination. Full ROM of the left elbow.Radial pulse is 2+, hand grasp strength is 5/5.Neurological: She is alert and oriented to person, place, and time.Skin: Skin is warm and dry.Psychiatric: Affect and judgment normal.Nursing note and vitals reviewed. ASSESSMENT/PLAN:1. Injury of left wrist, initial encounter - ICD9: 959.3, ICD10: S69.92XA(primary diagnosis)Pt rays are negative. I did placed her in a wrist cock up splint prior todischarge. Instructed to rest, ice, and elevate. Pt HCG was negative hereas well. Disucssed follow up with obgyn or pcp regarding late menses.Follow up in one week if no improvement.- XR WRIST GENERAL 3V PA/LAT/OBL LT2. Late menses - ICD9: 626.8, ICD10: N92.6- HCG QUAL UR B/O CNOV Observed: 09/20/2017 Status: COMPLETED Source: [facility] 5:15 PM [facility] REPOSITORY Office Visit (WSTR) ---------DARRYL BUI ([id number]) 2000 [facility] Time Provider Department09/20/17 5:15 PM CHAPO KOCH) [facility] During your visit today, we recorded the following information about you: Temperature Pulse Respiration Weight 98.8 degrees 70/minute 16/minute 60.3 kg Last Period 07/24/17Chapo Koch PA-C 09/20/2017 5:59 PM SignedSubjectiveHPIPt presents with a left wrist injury. At 315 today she was in a van and fellcatching herself on her left wrist. 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 Disp: 28 tablet Rfl: 0NORLYDA 0.35 mg tablet Take 1 tablet by mouth once daily. Disp: Rfl:propranolol (INDERAL) 20 mg tablet Take 20 mg by mouth once daily. Disp: Rfl:SUMAtriptan (IMITREX) 25 mg tablet Take 25 mg by mouth as needed. Disp: Rfl:citalopram hydrobromide (CELEXA) 10 mg tablet Take 10 mg by mouth once daily.Disp: Rfl:magnesium oxide 400 mg cap Take 400 mg by mouth once daily. Disp: Rfl:RIBOFLAVIN (VITAMIN B-2 ORAL) Take 400 mg by mouth once daily. Disp: Rfl: No current facility-administered medications for this visit.PAST SURGICAL HISTORYProcedure Laterality Date- NONE- US BREAST NEEDLE CORE BIOPSY LT Left 2017 fibrocystic changesFAMILY HISTORYProblem Relation Age of Onset- epilepsie [Other] [OTHER] FatherSocial HistorySubstance Use Topics- Smoking status: Never Smoker- Smokeless tobacco: Never Used- Alcohol use NoPulse 70 Temp 37.1 ?C ( 98.8 ?F) (Tympanic) Resp 16 Wt 60.3 kg (133 lb) LMP 07/24/2017 BMI 23.56 kg/ v1JxhuoshajIrmbhpgi ExamConstitutional: She is oriented to person, place, and time and well-developed,well-nourished, and in no distress.HENT:Head: Normocephalic and atraumatic.Neck: Normal range of motion.Cardiovascular: Normal rate, regular rhythm and normal heart sounds.Pulmonary/Chest: Effort normal and breath sounds normal.Musculoskeletal:Pt has diffuse tenderness of the dorsal wrist. Mild abrasion to the distalulnar wrist. No snuffbox tenderness. Pt has increased pain on flexion andextension as well at pronation and supination. Full ROM of the left elbow.Radial pulse is 2+, hand grasp strength is 5/5.Neurological: She is alert and oriented to person, place, and time.Skin: Skin is warm and dry.Psychiatric: Affect and judgment normal.Nursing note and vitals reviewed. ASSESSMENT/PLAN:1. Injury of left wrist, initial encounter - ICD9: 959.3, ICD10: S69.92XA(primary diagnosis)Pt rays are negative. I did placed her in a wrist cock up splint prior todischarge. Instructed to rest, ice, and elevate. Pt HCG was negative here aswell. Disucssed follow up with obgyn or pcp regarding late menses. Follow up inone week if no improvement.- XR WRIST GENERAL 3V PA/LAT/OBL LT2. Late menses - ICD9: 626.8, ICD10: N92.6- HCG QUAL UR B/OReferring Provider: SELF [200]Allergies As of Date: 09/20/2017 Noted Allergy ReactionAMOXICILLIN 12/21/2012 2 - RashPENICILLINS 09/12/2015 2 - RashDate Reviewed: 09/20/2017Reviewed by: Rosa Ye Ma - Fully AssessedReason for Visit: Wrist Pain [1580] Cmt: left wrist caught herself getting out of van x todayPrimary Visit Diagnosis:Injury of left wrist, initial encounter [S69.92XA] Other Visit Diagnosis:Late menses [N92.6]Order(s):XR WRIST GENERAL 3V PA/LAT/OBL LT [1727735] Order #: [id number] FUTURE HCG QUAL UR B/O [[id number]] Order #: [id number] as of 09/20/2017 Sig: IBUPROFEN 800 MG TABLET Take 1 tablet by mouth every * NORLYDA 0.35 MG TABLET Take 1 tablet by mouth once d* PROPRANOLOL 20 MG TABLET Take 20 mg by mouth once shruthi* SUMATRIPTAN 25 MG TABLET Take 25 mg by mouth as needed* CITALOPRAM 10 MG TABLET Take 10 mg by mouth once shruthi* MAGNESIUM OXIDE 400 MG CAPSULE Take 400 mg by mouth once bennett* VITAMIN B-2 ORAL Take 400 mg by mouth once bennett*Problem List As Of Date 09/20/2017 Noted Resolved Lump or mass in breast [N63.0] INVALID FOR*01/09/2016 More... Solitary cyst of left breast [N60.02] INVALID FOR*01/09/2016 Diffuse cystic mastopathy of left breast [N60.1*INVALID FOR*01/07/2017 More... Lump or mass in breast [N63.0] INVALID FOR*01/21/2017 More... Fibrocystic changes of left breast [N60.12] INVALID FOR* More... Breast pain [N64.4] INVALID FOR* More... Status:Closed by CHAPO KOCH PA-C on 09/20/17 A1C Collected: 08/26/2017 Status: F Source: [facility] 9:32 AM [facility] REPOSITORY TYPE CODE TESTS RESULT OUT OF RANGE REFERENCE UNITS LAB A1C(LOINC) 4.8-5.9 % Hgb 4.9 A1c Performed By: #### A1C, TSH ####[address] [place], [place] [address] TSH Collected: 08/26/2017 Status: F Source: [facility] 9:32 AM [facility] REPOSITORY TYPE CODE TESTS RESULT OUT OF RANGE REFERENCE UNITS LAB TSH(LOINC) 0.27-4.20 mcIU/mL TSH 1.58 Performed By: #### A1C, TSH ####[id number] [place], [place] [address] ED NOTE Observed: 08/25/2017 Status: COMPLETED Source: [place] 4:36 AM [facility] REPOSITORY HNO ID: [id number]: Drake (Ania) Hans Bonnerice: (none)Author Type: Registered NurseType: ED NotesFiled: 08/25/2017 4:37 AMNote Text: Pt given discharge instructions and verbalized understanding of follow upcare. Pt stable and ambulatory on discharge with mother. ED NOTE Observed: 08/25/2017 Status: COMPLETED Source: [place] 3:56 AM [facility] REPOSITORY HNO ID: [id number]: Drake Sahu) Ha RNService: (none)Author Type: Registered NurseType: ED NotesFiled: 08/25/2017 3:57 AMNote Text: Pt laying in bed playing on phone. Says pain is terrible. Medicated perorder. Pt laughing and joking. XR CHEST 2V FRONTAL/LAT Observed: 08/25/2017 Status: F Source: [place] 3:39 AM [facility] OTHER [place] REPOSITORY * * *Final Report* * *DATE OF EXAM: Aug 25 2017 3:39AM MDX [id number] - XR CHEST 2V FRONTAL/LAT / REASON: SOB (shortness of breath) * * * * Physician Interpretation * * * * CHEST X-RAYHISTORY: SOB (shortness of breath)TECHNIQUE: Upright PA and lateral.COMPARISON: 12/21/1714 chestRESULT:Heart/mediastinum: Within normal limits.Lungs/pleura: Clear.Bones/soft tissues: Unremarkable.Lines/tubes/devices: None visualized.IMPRESSION:No active disease in the chest.Newspaper Delivery Counselor: URVASHI Transcribe Date/Time: Aug 25 2017 3:42ADictated by : LOGAN DOUGHERTY MDThis examination was interpreted and the report reviewed and electronically signed by: LOGAN DOUGHERTY MD on Aug 25 2017 3:43AM [id number] CBC AND DIFFERENTIAL Collected: 08/25/2017 Status: F Source: [facility] 3:27 AM [facility] OTHER CAMPUS REPOSITORY TYPE CODE TESTS RESULT OUT OF REFERENCE UNITS RANGE LAB WBC 3.70-11.00 k/uL WBC 6.52 LAB RBC 3.90-5.20 m/uL RBC 4.71 LAB HGB 11.5-15.5 g/dL Hemoglobin 13.8 LAB HCT 36.0-46.0 % Hematocrit 41.3 LAB MCV 80.0-100.0 fL MCV 87.7 LAB MCH 26.0-34.0 pG MCH 29.3 LAB MCHC 30.5-36.0 g/dL MCHC 33.4 LAB RDWCV 11.5-15.0 % RDW-CV 13.9 LAB PLTCT 150-400 k/uL Platelet 227 Count LAB MPV 9.0-12.7 fL MPV 10.5 LAB ANEUT % Neut% 57.1 LAB AANEUT 1.45-7.50 k/uL Abs Neut 3.72 LAB ALYMP % Lymph% 31.3 LAB AALYMP 1.00-4.00 k/uL Abs Lymph 2.04 LAB AMONO % Brule% 8.4 LAB AAMONO <0.87 k/uL Abs Brule 0.55 LAB AEOS % Eosin% 2.1 LAB AAEOS <0.46 k/uL Abs Eosin 0.14 LAB ABASO % Baso% 1.1 LAB AABASO <0.11 k/uL Abs Baso 0.07 Performed By: #### CBCDIF, BETAMM, CMP, DDMER, PT, PTT #### [place] [phone] SERUM BETA HCG Collected: Status: F Source: [facility] EAST/WEST/MED/SUPERIOR/[facility] USE 08/25/2017 3:27 AM CLINIC OTHER ONLY CAMPUS REPOSITORY TYPE CODE TESTS RESULT OUT OF REFERENCE UNITS RANGE LAB BETAMM Negative Negative Serum Beta HCG East/West/M ed/Superior /[facility] use ONLY Result Comment: False positives and false negatives are rare but have been described. Clinical correlation of the findings is recommended. Performed By: #### CBCDIF, BETAMM, CMP, DDMER, PT, PTT #### [facility] [id number] [place], [place] [phone] COMP METABOLIC PANEL Collected: 08/25/2017 Status: F Source: [place] 3:27 AM CLINIC OTHER CAMPUS REPOSITORY TYPE CODE TESTS RESULT OUT OF REFERENCE UNITS RANGE LAB TP 6.3-8.0 g/dL Protein, Total 7.7 LAB ALB 3.9-4.9 g/dL Albumin 4.4 LAB CA 8.5-10.2 mg/dL Calcium, Total 8.8 LAB TBIL 0.2-1.3 mg/dL Bilirubin, 0.2 Total LAB ALKP 32-117 U/L Alkaline 72 Phosphatase LAB AST 13-35 U/L AST 13 LAB GLU 74-99 mg/dL Glucose 94 Result Comment: The [place] Diabetes Association (ADA) provides guidance for cutoff values for fasting glucose and random glucose. The ADA defines fasting as no caloric intake for at least 8 hours. Fasting plasma glucose results between 100 to 125 mg/dL indicate increased risk for diabetes (prediabetes) .Fasting plasma glucose results greater than or equal to 126 mg/dL meet the criteria for diagnosis of diabetes. In the absence of unequivocal hyperglycemia, results should be confirmed by repeat testing. In a patient with classic symptoms of hyperglycemia or hyperglycemic crisis, random plasma glucose results greater than or equal to 200 mg/dL meet the criteria for diagnosis of diabetes.Reference: Standards of Medical Care in Diabetes 2016, [place] [employer]. Diabetes Care. 2016.39( Suppl 1). LAB BUN 7-21 mg/dL BUN 9 LAB CRET 0.58-0.96 mg/dL Creatinine 0.70 LAB NA 136-144 mmol/L Sodium 140 LAB K Low 3.7-5.1 mmol/L Potassium 3.6 LAB CL 97-105 mmol/L Chloride 100 LAB CO2 22-30 mmol/L CO2 27 LAB AGAP 9-18 mmol/L Anion Gap 13 LAB ALT 7-38 U/L ALT 9 LAB GFRAA eGFR- Amer. >60 LAB GFRNAA . eGFR-All Other Races >60 Result Comment: eGFR (Estimated GFR) Units of measure: mL/min/1.73 meters squaredeGFR is derived from the reexpressed MDRD Study equation using the following parameters: serum creatinine, age, gender and race. The creatinine assay has been calibrated to be traceable to IDMS.An eGFR <60 mL/min/1.73m2 for >3 months is consistent with chronic kidney disease. Refer to KDOQI guidelines for clinical interpretation.In patients with unstable renal function, e.g. those with acute kidney injury, the eGFR may not accurately reflect actual GFR. Performed By: #### CBCDIF, BETAMM, CMP, DDMER, PT, PTT #### [facility] [id number] [place] [phone] D DIMER Collected: 08/25/2017 Status: F Source: [place] 3:27 AM [facility] REPOSITORY TYPE CODE TESTS RESULT OUT OF REFERENCE UNITS RANGE LAB DDMER 0-500 ng/mL FEU D <190 dimer Result Comment: The D-dimer assay can be used to exclude pulmonary embolism (PE) and deep vein thrombosis (DVT) in conjunction with a low pre-test probability.For patients with a suspected DVT, a D-dimer level below 500 ng/mL FEU has a negative predictive value of 99.2%, a sensitivity of 98.9%, and a specificity of 36.1%. For patients with a suspected PE, a D-dimer level below 500 ng/mL FEU has a negative predictive value of 99.1%, a sensitivity of 97.8%, and a specificity of 41.7%. Performed By: #### CBCDIF, BETAMM, CMP, DDMER, PT, PTT #### [facility] [id number] [place], [place] [phone] PROTIME Collected: 08/25/2017 Status: F Source: [place] 3:27 AM [facility] REPOSITORY TYPE CODE TESTS RESULT OUT OF RANGE REFERENCE UNITS LAB PSEC 9.7-13.0 sec PT 10.7 Sec LAB INR 0.9-1.3 PT 1.0 INR Result Comment: Vitamin K Antagonist (VKA) Therapeutic Range: INR 2 to 3 (Target INR of 2.5)Note: For patients treated with VKA drugs, such as warfarin, the [place] [employer] 2012 Guideline recommends a therapeutic INR range of 2 to 3 (target INR of 2.5). This recommendation includes high-risk patients with antiphospholipid syndrome with previous arterial or venous thromboembolism, current-generation mechanical or bioprosthetic aortic heart valve replacement.Note: Patients with mechanical aortic valve replacement and additional risk factors for thromboembolic events (atrial fibrillation, previous thromboembolism, LV dysfunction, hypercoagulable conditions) or an older generation mechanical AVR (i.e., ball in-Cage) or any mechanical MVR should have a INR therapeutic range of 2.5 to 3.5 (target INR of 3).Kathy GH, et al. Chest 2012, 141:7S-47SNishimura RA, et al. [facility] 2017, 70: 252-289 Performed By: #### CBCDIF, BETAMM, CMP, DDMER, PT, PTT #### [facility] [address] [place] [phone] APTT Collected: 08/25/2017 Status: F Source: [place] 3:27 AM [facility] REPOSITORY TYPE CODE TESTS RESULT OUT OF RANGE REFERENCE UNITS LAB APTT 23.0-32.4 sec APTT 27.1 Result Comment: Unfractionated Heparin Therapeutic Ranges:Standard Heparin Nomogram: 53 to 78 seconds (anti-Xa level of 0.3 to 0.7 U/ml)Low Dose/ACS Nomogram: 49 to 67 seconds (anti-Xa level of 0.2 to 0.5 U/ml) Stroke Treatment Nomogram: 49 to 67 seconds (anti-Xa level of 0.2 to 0.5 U/ml)Note: The APTT therapeutic range has been determined for the current lot of laboratory APTT reagent in use throughout the [facility]. Performed By: #### CBCDIF, BETAMM, CMP, DDMER, PT, PTT #### [facility] [id number] [place] [phone] ED PROV NOTE Observed: 08/25/2017 Status: COMPLETED Source: [place] 3:22 AM [facility] REPOSITORY HNO ID: [id number]: ROSIE Anguloervice: (none)Author Type: PhysicianType: ED Provider NotesFiled: 08/25/2017 4:26 AMNote Text:ED Provider NotePatient Name: Darryl BuiMRN: [id number] DATE: 08/25/17HistoryPatient presents with:Shortness of BreathBlurred VisionPatient is a 17 year old female presenting with chest pain.History provided by: PatientLanguage diplomatic interpreter/translator used: Denita PainPain location: Substernal areaPain quality: pressurePain radiates to: Does not radiatePain severity: MildTiming: Unable to specifyProgression: Unable to specifyChronicity: NewContext: breathingContext : not drug use, not eating, not lifting, not movement, not raisingan arm, not at rest , not stress and not traumaRelieved by: NothingWorsened by: NothingIneffective treatments: None triedAssociated symptoms: no abdominal pain, no AICD problem , no altered mentalstatus, no anorexia, no anxiety, no back pain, no claudication, no cough,no diaphoresis, no dizziness, no dysphagia, no fatigue, no fever, noheadache, no heartburn, no lower extremity edema, no nausea, nonear-syncope, no numbness , no orthopnea, no palpitations, no PND, noshortness of breath, no syncope, no vomiting and no weaknessRisk factors: no aortic disease, no control, no coronary arterydisease, no diabetes mellitus, no Erica-Danlos syndrome, no highcholesterol, no hypertension, no immobilization, not male, no Marfan'ssyndrome, not obese, not , no prior DVT/PE, no smoking and nosurgeryPAST MEDICAL HISTORYDiagnosis Date- Breast mass 2016- Celiac disease- Gastroesophageal reflux disease- Migraine headache- MigrainesPAST SURGICAL HISTORYProcedure Laterality Date- NONE- US BREAST NEEDLE CORE BIOPSY LT Left 2017 fibrocystic changesFAMILY HISTORYProblem Relation Age of Onset- epilepsie [Other] [OTHER] FatherSocial HistorySocial History Main Topics- Smoking status: Never Smoker- Smokeless tobacco: Never Used- Alcohol use No- Drug use: No- Sexual activity: Not AskedALLERGIESAllergen Reactions- Amoxicillin Rash- Penicillins RashReview of SystemsConstitutional: Negative. Negative for diaphoresis, fatigue and fever.HENT: Negative. Negative for trouble swallowing.Eyes: Negative.Respiratory: Negative. Negative for cough and shortness of breath.Cardiovascular: Positive for chest pain. Negative for palpitations, orthopnea, claudication, syncope, PND and near-syncope.Gastrointestinal: Negative. Negative for abdominal pain, anorexia,heartburn, nausea and vomiting.Genitourinary: Negative.Musculoskeletal: Negative. Negative for back pain.Skin: Negative.Neurological: Negative. Negative for dizziness, weakness, numbness andheadaches.Psychiatric/Behavioral: Negative.Physical ExamBP 117/76 Pulse 91 Temp (Src) 97.8 (Oral) Resp 18 SpO2 100% [facility]07/24/2017Physical ExamConstitutional: She is oriented to person, place, and time. Vital signsare normal. She appears well-developed and well-nourished. She is active.HENT:Head: Normocephalic and atraumatic.Right Ear: External ear normal.Left Ear: External ear normal.Nose: Nose normal.Mouth/Throat: Oropharynx is clear and moist.Eyes: Conjunctivae, EOM and lids are normal. Pupils are equal, round, andreactive to light. Lids are everted and swept, no foreign bodies found.Neck: Trachea normal and normal range of motion. Neck supple.Cardiovascular: Normal rate, regular rhythm, normal heart sounds andintact distal pulses.Pulmonary/Chest: Effort normal and breath sounds normal.Abdominal: Soft. Bowel sounds are normal.Musculoskeletal: Normal range of motion.Neurological: She is alert and oriented to person, place, and time. Shehas normal strength and normal reflexes. No cranial nerve deficit orsensory deficit. She displays a negative Romberg sign. GCS eye subscore is4. GCS verbal subscore is 5. GCS motor subscore is 6.Skin: Skin is warm and dry.Psychiatric: She has a normal mood and affect.Nursing note and vitals reviewed.Diagnostic TestingED Labs Ordered and Reviewed - No data to displayProceduresMedical Decision Making / ED CourseED [id number] couple hours ago had onset of chest pain and chest shortnessof breath point, in the upper chest says her skin feels on fire. Thisstarted a few hours ago. Patient comes in with her mom she is is feelingshort of breath feels this tightness across the chest. No double visionor blurry vision no numbness no tingling no other constitutional signs orsymptomsPhysical examAfebrile vital signs are stableCardiac regular rate rhythm S1-S2 no rubs murmurs gallopsPulmonary exam clear to auscultation no rales rhonchi or crackles no ralesor rhonchiAbdomen is soft nontender nondistended bowel sounds present nohepatosplenomegalyLymphatics no adenopathyMusculoskeletal no cyanosis clubbing edemaSkin clean dry and intactChest: Scattered tightness across the chest is reproducible with palpationno recent travel history she is not a smokerShe is not a smoker she has not had any recent travel history, althoughshe does use control pills she is not tachypneic tachycardic orhypoxic.Sounds clinically what more of a costochondritis, there is no productivecough her chest sounds clear with good aeration. CBC chemistries wereordered d-dimer is ordered, as well as a chest x-ray and will administersome Toradol, the Toradol does not help we will certainly consider.Onesimo.Results for orders placed or performed during the hospital encounter of08/25/17CBC + DIFFResult Value Ref Range WBC 6.52 3.70 - 11.00 k/uL RBC 4.71 3.90 - 5.20 m/uL Hemoglobin 13.8 11.5 - 15.5 g/dL Hematocrit 41.3 36.0 - 46.0 % MCV 87.7 80.0 - 100.0 fL MCH 29.3 26.0 - 34.0 pG MCHC 33.4 30.5 - 36.0 g/dL RDW-CV 13.9 11.5 - 15.0 % Platelet Count 227 150 - 400 k/uL MPV 10.5 9.0 - 12.7 fL Neut% 57.1 % Abs Neut (ANC) 3.72 1.45 - 7.50 k/uL Lymph% 31.3 % Abs Lymph 2.04 1.00 - 4.00 k/uL Brule% 8.4 % Abs Brule 0.55 < 0.87 k/uL Eosin% 2.1 % Abs Eosin 0.14 <0.46 k/uL Baso% 1.1 % Abs Baso 0.07 <0.11 k/ uLCOMP METABOLIC PANELResult Value Ref Range Protein, Total 7.7 6.3 - 8.0 g/dL Albumin 4.4 3.9 - 4.9 g/dL Calcium 8.8 8.5 - 10.2 mg/dL Bilirubin, Total 0.2 0.2 - 1.3 mg/ dL Alkaline Phosphatase 72 32 - 117 U/L AST 13 13 - 35 U/L Glucose 94 74 - 99 mg/ dL BUN 9 7 - 21 mg/dL Creatinine 0.70 0.58 - 0.96 mg/dL Sodium 140 136 - 144 mmol/L Potassium 3.6 (L) 3.7 - 5.1 mmol/L Chloride 100 97 - 105 mmol/L CO2 27 22 - 30 mmol/L Anion Gap 13 9 - 18 mmol/L ALT 9 7 - 38 U/L eGFR- >60 eGFR- All Other Races >60 .D-DIMERResult Value Ref Range d Dimer <190 0 - 500 ng/mL FEUACTIVATED PTTResult Value Ref Range APTT 27.1 23.0 - 32.4 secPROTHROMBIN TIME/PTResult Value Ref Range PT Sec 10.7 9.7 - 13.0 sec PT INR 1.0 0.9 - 1.3HCG QUAL BLDResult Value Ref Range HCG, Qualitative Negative NegativeChest x-rays per the radiologist is negative rest the labs are negativethe Toradol she says helped her a little she's feeling better when shemoves around it hurts and she gets short of breath this sounds to me morelike a musculoskeletal pain. D-dimer is negative and will think a CATscan of the chest will help there is no obvious pneumothorax at this pointI would treat her with Motrin 6 for symptomatic relief, have her follow- upthe primary care doctor next few days and certainly if the discomfort orshortness of breath gets worse and consider repeating some studies.Diagnostic impression #1 chest pain#2 shortness of breathNo diagnosis found.PlanThe Patient was DISCHARGED: Counseled patient regarding lab results ANDradiology results AND suspected diagnosis AND need for follow-up. Dischargedhome with verbal and written instructions. They were instructed to returnas needed for persistent or worsening symptoms or any new concerns.Condition at time of disposition: stableSIGNATURE: Bib Angulo MD08/25/17 0426 ED NOTE Observed: 08/25/2017 Status: COMPLETED Source: [facility] 3:08 AM [facility] OTHER CAMPUS REPOSITORY HNO ID: [id number]: Michell (Rn) MELIA Saenzervice: (none)Author Type: Registered NurseType: ED NotesFiled: 08/25/2017 3:09 AMNote Text:Patient presents to ER with c/o sudden onset SOB, chest pain in the samearea, and stating that her skin is on fire. XR ANKLE MINIMUM 3 Observed: 08/04/2017 Status: F Source: [facility] VIEWS LEFT 11:41 AM [facility] REPOSITORY ORIGINALXR ANKLE MINIMUM 3 VIEWS LEFT CLINICAL STATEMENT: lt ankle pain; felt pops in her ankle when stepping out of her car last night. COMPARISON: Ankle radiograph 10/17/2013 FINDINGS: There is no acute fracture, joint effusion or dislocation. The ankle mortise is maintained. The talar dome is normal. The joint spaces are maintained. IMPRESSION: No acute radiographic findings. I have personally reviewed the images of this examination and agree with the resident' s findings and interpretation. Interpreted By: Jaylen Thrasherreliminary Report By: Pratik Magallon MDElectronically Signed By: Jaylen Thrasher MD Dictated Date: 08/04/2017 2:23:39 PM Prelim Date: 08/04/2017 2:26:13 PM Sign Date: 08/04/2017 3:12: 11 PM PROGRESS Observed: 07/26/2017 Status: COMPLETED Source: [facility] 2:05 PM [facility] OTHER CAMPUS REPOSITORY HNO ID: [id number]: Makeda Bob: (none) Author Type: PhysicianType: Progress NotesFiled: 07/26/2017 2:15 PMNote Text:Chief Complaint:Patient presents with:Breast Mass: history of left biopsy fro fibrocystic changesRecheck: 6 monthsRachel Gissell is a 17 year old female who presents today for follow up ofher left breast mass.She is status post ultrasound guided biopsy of a left palpable breast henry 01/17/2017. Final pathology returned fibrocystic changes and this isconcordant.Today, she had a left breast ultrasound done which I reviewed. It showed astable benign 5.7 cm x 1.6 cm x 3.4 cm lobulated area in the leftbreast at 1 o'clock middle depth 5 cm from the nipple, BIRADS 2.She denies palpating any new breast masses or axillary adenopathy. No skinor nipple changes. No nipple discharge.She had noticed a mass in her right breast but she can no longer feel it.Also, she has been having occasional bilateral breast pain that is sharpand located in the upper outer quadrant. There are no exacerbatingfactors. She does not have it every day. It can last for a few hours. Shehas not sought any relieving measures.PAST MEDICAL HISTORYDiagnosis Date- Breast mass 2016- Celiac disease- Gastroesophageal reflux disease- Migraine headache- MigrainesPAST SURGICAL HISTORYProcedure Laterality Date- NONE- US BREAST NEEDLE CORE BIOPSY LT Left 2017 fibrocystic changesFAMILY HISTORYProblem Relation Age of Onset- epilepsie [ Other] [OTHER] FatherSocial History Marital status: Single Spouse name: Years of education: Number of children:Social History Main Topics Smoking status: Never Smoker Smokeless status: Never Used Alcohol use: No Drug use: NoSocial History Narrative Merged History Encounter ALLERGIESAllergen Reactions- Amoxicillin Rash- Penicillins RashREVIEW OF SYSTEMSGENERAL: No weight loss, malaise or feversBreast: See HPICurrent Outpatient Prescriptions:NORLYDA 0.35 mg tablet Take 1 tablet by mouth once daily. Disp: Rfl:propranolol (INDERAL) 20 mg tablet Take 20 mg by mouth once daily. Disp:Rfl:SUMAtriptan (IMITREX) 25 mg tablet Take 25 mg by mouth as needed. Disp:Rfl:citalopram hydrobromide (CELEXA) 10 mg tablet Take 10 mg by mouth oncedaily. Disp: Rfl:magnesium oxide 400 mg cap Take 400 mg by mouth once daily. Disp: Rfl:RIBOFLAVIN (VITAMIN B-2 ORAL) Take 400 mg by mouth once daily. Disp: Rfl: No current facility-administered medications for this visit.BP 101/60 Pulse 67 Ht 5' 3 (1.60m) Wt 112 lb (50.8kg) BMI 19.84kg/(m2).PHYSICAL EXAMINATIONGeneral appearance: alert, well appearing, and in no distressMental status: alert, oriented to person, place and timeNeck: supple, no significant adenopathyBreast Exam: On visual in spection of the breasts finds them to beBreasts: symmetric without skin changes or nipple retraction. Whilesitting upright, there were no breast defects or differences noted witharms down, above the head or on her waist.RIGHTSkin changes: NoNipple retraction:NoAxillary adenopathy: NoSupraclavicular adenopathy: NoPalpable masses: NoTenderness: NoNipple discharge: NoLEFTSkin changes: No; biopsy site clean dry and intactNipple retraction:NoAxillary adenopathy: NoSupraclavicular adenopathy: NoPalpable masses: 1:00 5CFN measuring 3.5 cm x 3 cm; soft and mobileTenderness : NoNipple discharge: NoASSESSMENT/PLANFibrocystic changes of left breastMsSulema Bui is a 17 year old female here today for her 6 month follow up.She is status post ultrasound guided biopsy of a left palpable breast henry 01/17/2017. Final pathology returned fibrocystic changes and this isconcordant.Today, the mass is unchanged on her ultrasound and it is smaller andsofter on her exam. I have recommended continued close follow up for atotal of 2 years from her biopsy.I will see her back in 6 months with a repeat ultrasound.She should continue monthly self breast exams and call with any concerns.Breast painIn regards to her breast pain, I have recommended caffeine cessation, warmcompresses and NSAIDs as needed.Makeda Acosta MD07/26/20172: 05 PM CNOV Observed: 07/26/2017 Status: COMPLETED Source: [facility] 2:00 PM CLINIC OTHER CAMPUS REPOSITORY Office Visit (AGGBRCR) DARRYL BUI ([id number]) 2000 [facility] Time Provider Department07/26/17 2:00 PM MAKEDA ACOSTA During your visit today, we recorded the following information about you: Pulse Blood pressure Weight Height 67/minute 101/60 50.8 kg 1.6 William Washington MA 07/26/2017 1:53 PM AddendumPatient presents for 6 month follow up and review of today's breast imaging.Patient relates breast tenderness bilateral and she has a new lump on the rightno new breast images.Daivd Wong MD 07/26/2017 2:15 PM SignedChief Complaint: Patient presents with:Breast Mass: history of left biopsy fro fibrocystic changesRecheck: 6 monthsRachel Gissell is a 17 year old female who presents today for follow up of herleft breast mass.She is status post ultrasound guided biopsy of a left palpable breast mass on01/17/2017. Final pathology returned fibrocystic changes and this is concordant.Today, she had a left breast ultrasound done which I reviewed. It showed astable benign 5.7 cm x 1.6 cm x 3.4 cm lobulated area in the leftbreast at 1 o'clock middle depth 5 cm from the nipple, BIRADS 2.She denies palpating any new breast masses or axillary adenopathy. No skin ornipple changes. No nipple discharge.She had noticed a mass in her right breast but she can no longer feel it.Also, she has been having occasional bilateral breast pain that is sharp andlocated in the upper outer quadrant. There are no exacerbating factors. Shedoes not have it every day. It can last for a few hours. She has not sought anyrelieving measures.PAST MEDICAL HISTORYDiagnosis Date- Breast mass 2016- Celiac disease- Gastroesophageal reflux disease- Migraine headache- MigrainesPAST SURGICAL HISTORYProcedure Laterality Date- NONE- US BREAST NEEDLE CORE BIOPSY LT Left 2017 fibrocystic changesFAMILY HISTORYProblem Relation Age of Onset- epilepsie [Other] [OTHER] FatherSocial History Marital status: Single Spouse name: Years of education: Number of children:Social History Main Topics Smoking status: Never Smoker Smokeless status: Never Used Alcohol use: No Drug use: NoSocial History Narrative Merged History Encounter ALLERGIESAllergen Reactions- Amoxicillin Rash- Penicillins RashREVIEW OF SYSTEMSGENERAL: No weight loss, malaise or feversBreast: See HPICurrent Outpatient Prescriptions:NORLYDA 0.35 mg tablet Take 1 tablet by mouth once daily. Disp: Rfl:propranolol (INDERAL) 20 mg tablet Take 20 mg by mouth once daily. Disp: Rfl:SUMAtriptan (IMITREX) 25 mg tablet Take 25 mg by mouth as needed. Disp: Rfl:citalopram hydrobromide (CELEXA) 10 mg tablet Take 10 mg by mouth once daily.Disp: Rfl: magnesium oxide 400 mg cap Take 400 mg by mouth once daily. Disp: Rfl:RIBOFLAVIN (VITAMIN B-2 ORAL) Take 400 mg by mouth once daily. Disp: Rfl:No current facility-administered medications for this visit.BP 101/60 Pulse 67 Ht 5' 3ANDquot; (1.60m) Wt 112 lb (50.8kg) BMI 19.84kg/(m2).PHYSICAL EXAMINATIONGeneral appearance: alert, well appearing, and in no distressMental status: alert, oriented to person, place and timeNeck: supple, no significant adenopathyBreast Exam: On visual in spection of the breasts finds them to beBreasts: symmetric without skin changes or nipple retraction. While sittingupright, there were no breast defects or differences noted with arms down,above the head or on her waist.RIGHTSkin changes: NoNipple retraction:NoAxillary adenopathy: NoSupraclavicular adenopathy: NoPalpable masses: NoTenderness: NoNipple discharge: NoLEFTSkin changes: No; biopsy site clean dry and intactNipple retraction:NoAxillary adenopathy: NoSupraclavicular adenopathy: NoPalpable masses: 1:00 5CFN measuring 3.5 cm x 3 cm; soft and mobileTenderness: NoNipple discharge: NoASSESSMENT/ PLANFibrocystic changes of left breastMsSulema Bui is a 17 year old female here today for her 6 month follow up.She is status post ultrasound guided biopsy of a left palpable breast mass on01/17/2017. Final pathology returned fibrocystic changes and this is concordant.Today, the mass is unchanged on her ultrasound and it is smaller and softer onher exam. I have recommended continued close follow up for a total of 2 yearsfrom her biopsy.I will see her back in 6 months with a repeat ultrasound.She should continue monthly self breast exams and call with any concerns.Breast painIn regards to her breast pain, I have recommended caffeine cessation, warmcompresses and NSAIDs as needed.Makeda Acosta MD07/262:05 Stephania Acosta MD 07/26/2017 2:14 PM WrittenMsSulema Bui is a 17 year old female here today for her 6 month follow up.She is status post ultrasound guided biopsy of a left palpable breast mass on01/17/2017. Final pathology returned fibrocystic changes and this is concordant.Today, the mass is unchanged on her ultrasound and it is smaller and softer onher exam. I have recommended continued close follow up for a total of 2 yearsfrom her biopsy.I will see her back in 6 months with a repeat ultrasound.She should continue monthly self breast exams and call with any concerns.Makeda Acosta MD 07/26/2017 2:15 PM WrittenIn regards to her breast pain, I have recommended caffeine cessation, warmcompresses and NSAIDs as needed.Referring Provider: KRISTIAN QUINONES [[id number]]Allergies As of Date : 07/26/2017 Noted Allergy ReactionAMOXICILLIN 12/21/2012 2 - RashPENICILLINS 09/12/2015 2 - RashDate Reviewed: 07/26/2017Reviewed by: Makeda Acosta - Fully AssessedReason for Visit: Breast Mass [284] Cmt: history of left biopsy fro fibrocystic changes Recheck [92] Cmt: 6 monthsPrimary Visit Diagnosis:Fibrocystic changes of left breast [N60.12] Other Visit Diagnosis:Breast pain [N64.4]Order(s):US BREAST LTD [[id number]] Order #: [id number] FUTUREPrescriptions as of 07/26/2017 Sig: NORLYDA 0.35 MG TABLET Take 1 tablet by mouth once d* PROPRANOLOL 20 MG TABLET Take 20 mg by mouth once shruthi* SUMATRIPTAN 25 MG TABLET Take 25 mg by mouth as needed* CITALOPRAM 10 MG TABLET Take 10 mg by mouth once shruthi* MAGNESIUM OXIDE 400 MG CAPSULE Take 400 mg by mouth once bennett* VITAMIN B-2 ORAL Take 400 mg by mouth once bennett*Medication notes this encounter RIZATRIPTAN ORAL >> Deborah Washington MA 07/26/2017 1:57 PM >> DEBORAH WASHINGTON MA Jul 26, 2017 1:57 PM No longer takingProblem List As Of Date 07/26/2017 Noted Resolved Lump or mass in breast [N63.0] INVALID FOR*01/09/2016 More... Solitary cyst of left breast [N60.02] INVALID FOR*01/09/2016 Diffuse cystic mastopathy of left breast [N60.1*INVALID FOR*01/07/2017 More... Lump or mass in breast [N63.0] INVALID FOR*01/21/2017 More... Fibrocystic changes of left breast [N60.12] INVALID FOR* More... Breast pain [N64.4] INVALID FOR* More...Visit Notes:>> Deborah Carrillo Jul 26, 2017 1:38 PM Status: AddendumPatient presents for 6 month follow up and review of today's breastimaging. Patient relates breast tenderness bilateral and she has a newlump on the right no new breast images.Deborah Washington , MAMedications Discontinued During This Encounter RIZATRIPTAN BENZOATE (RIZATRIPTAN OR* 07/26/2017 Class: Historical Med Route: ORAL Sig: Take 1 tablet by mouth as needed. Disc: Discontinued by another Health Care ProviderLevel of Service: EST PATIENT VISIT LEVEL 3 [[id number]]Disposition: Return in about 6 months (around 01/23/2018).Follow- up and Disposition History RecordedEncounter Number: [id number] Status:Closed by MAKEDA ACOSTA MD on 07/26/17 [employer] Observed: 07/26/2017 Status: F Source: [facility] 1:10 PM HEALTH SYSTEM REPOSITORY Performed at [facility] APPROVED BY: Raheem Falcon MD #[id number] - [facility] BREAST [employer] LEFTULTRASOUND OF LEFT BREAST: 07/26/2017CLINICAL: Short term follow up on previous left breast biopsy. No prior exams were available for comparison. Real-time ultrasound of the left breast was performed. There is a stable benign 5.7 cm x 1.6 cm x 3.4 cm lobulated area in the left breast at 1 o'clock middle depth 5 cm from the nipple. This lobulated area is hypoechoic. This correlates with the previous biopsy. Color flow imaging demonstrates that there is no increase in vascularity. IMPRESSION: BENIGN There is no sonographic evidence of malignancy. The stable 5.7 cm x 1.6 cm x 3.4 cm lobulated area in the left breast at 1 o'clock middle depth is consistent with fibrocystic change and is benign. Raheem Falcon M.D. /tomirad:07/26/2017 13:07:36 copy to: FABIOLA BEARDEN DO Diesel Engine Fitter: Yokasta Mendoza RDIN, [facility] [employer] Center Ultrasound BI-RADS: [address]/NG [facility] BY PCR Collected: 07/12/2017 Status: F Source: [facility] 5:24 PM [facility] REPOSITORY Order Comment: Comments: urine specimenComments: urine specimen TYPE CODE TESTS RESULT OUT OF RANGE REFERENCE UNITS LAB L8200.2100 Normal Negative Negative Chlam Trac PCR LAB L8200.2200 Normal Negative NG Negative by PCR Performed By: #### L8200.2000 ####[facility] [address] 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, [place] [phone] VISITDate of Service: 07/12/17MR#: [id number] Acct: [id number]: DARRYL BUI Rep #: [id number]: 2000 Provider: RAUL Zambrano/Sex: 17/F [facility]Status: SignedIntakeVital Signs07/12/17 Height 5 ft 3 in07/12/17 Weight: 129 lb 2 oz07/12/17 Body Mass Index (BMI) 22.801 Blood Pressure 111/74IntakeVisit Reasons: CONTROLChief Complaint: controlInterpreter Required: NoIs patient in pain?: NoAllergiesamoxicillin Allergy (Mild, Verified 07/12/17 13:08)Otherpenicillin G Allergy (Mild, Verified 13:08)OtherMedicationscitalopram 20 mg tablet 20 mg PO QDAY 07/12/17 [History Confirmed 07/12/17]norethindrone (contraceptive) 0.35 mg tablet 0.35 mg PO QDAY #28 tab 07/12/17 [Rx Lptnianek79/09/18]Is last menstrual period known: Yes Last Menstral Period: 06/22/17Post menopausal: NoPatient : NoBreastfeeding: NoPFSHMedical History Anxiety and depression (Acute)Family HistoryMother ArthritisFibromyalgiaFather EpilepsySocial HistorySmoking Status: Never smokeralcohol intake: neversubstance use type: does not usecaffeine: Yesfrequency: 1-2 times per weekseatbelt use: alwaysdo you feel safe at home: YesPregancy HistoryGravida 1 Elective abortionsHx Para 0 Spontaneous abortionsHPIBIRTH CONTROL:Details: DARRYL BUI is a 17 year old who presents for continues to have irregular menses.Was seen in January 2017 and given provera to induce menses which it did. She has had one mensessince that one. She was sexually active without a condom about 3 weeks ago.LMP 06/22/17Female Reproductive HistoryLast Menstral Period: 06/22/17ROSConstConstitutional: Reports system reviewed and no additional complaints, except as docuGIGI: Denies abdominal pain or change in bowel habitsResultsBMSPREGUROffice , Urine Negative Last Edit by Aurelia Leal on 07/12/17 13:32Assessment AND Plan1. Irregular menstrual cycle N92.6PlanDiscussed contraceptive options including nexplanon, IUD, depoprovera. She had migraines withaura with previous OCP and will defer estrogen containing medications.She prefers to try another OCP and will try Daphnie as progesterone only. Negative urinepregnancy today. Will start OCP today. Condoms first cycle and reviewed condom use todecrease STD risksRTO 4 weeks15 min FTF counseling with patientOrdersOrders:2. Screen for STD (sexually transmitted disease) Z11.3OrdersOrders:Plan DetailOther MedicationsNew:07/12/17 4559 < Electronically signed by Sandy Chayo [employer]-C>Date Sandy Domingo [employer]-CCosigner Signature: Date (if applicable)CC: PROGRESS NOTE Observed: 04/19/2017 Status: COMPLETED Source: [facility] 1:50 PM [facility] RE[facility] I had the pleasure of seeing Darryl in clinic today for a follow-up visitregarding her headaches. She was last seen at the clinic on 2016. She is 17years old and was accompanied by her mother for this visit.Since the last visit, Darryl reports her headaches are ok, but has noticed herbirth control made them worse. She reports things were going very well, whereher headaches were about one-2x/week until she was started on this birthcontrol, about 3 months ago. She has yet to talk to her OBGYN, but plans toschedule an appointment. She reports she is very inconsistent with her naturalsupplements, despite having a reminder in her phone she just ignores.Interval headache history:Frequency: 4-5x/weekCharacter: ThrobbingLocation: All over the headRadiation: NoAverage pain scale: 8/10Aura: Occasional black dotsAssociated symptoms: Nausea, photophobia, phonophobiaAny Focal Neurologic symptoms with headache: NoDuration: 18 hours without treatment; 4- hours with or without treatmentAbortive Treatment: Imitrex 25mgResponse to treatment: Effective majority of the time; has not needed to redoseAggravating Factors: Loud noises, weather fluctuationsAny recent E.R. Visits for headache: NoPreventive treatment: Magnesium and RiboflavinOverall patient's assessment of headaches: Increased in frequencyPrevious Abortive Medications Used: Ibuprofen 400 mg, Excedrin Migraine Previous Preventive Medications Used: Cyproheptadine 8 mg (not effective) Previous Work-Up Done For Headache: [facility]: normalPertinent labs and imaging have been reviewed.Meds:Medication Sig Levonorgestrel-Ethinyl Estrad (LESSINA PO) Take by mouth daily SUMAtriptan ( IMITREX) 25 MG tablet Treat within 30 minutes of migraine onsetwith one tablet, can repeat dose in 2 hours if needed. ondansetron (ZOFRAN-ODT) 4 MG disintegrating tablet Take one tablet every 8hours as needed for nausea citalopram (CELEXA) 10 MG tablet Magnesium Oxide (MAG OX) 400 (241.3 MG) MG TABS tablet Take 1 Tab (400 mg) bymouth daily vitamin B-2 (RIBOFLAVIN) 100 MG capsule Take 4 Caps (400 mg) by mouth daily naproxen sodium (ANAPROX) 550 MG Take 1 Tab by mouth every 12 hours as neededfor Pain.Allergies:Allergen Reactions Amoxil [Amoxicillin] Rash Gluten Meal Nausea And Vomiting and Other (See Comments) Fatigue, joint painPast Medical History:- admitted for flu and dehydration in 1999- Celiac disease- diagnosed February 2013- Fracture of the right leg twice-laryngitis Family History:- Mother- migraine, arthritis- Maternal aunt- migraine, lupus, behcets, polycythemia- Father- epilepsy- Maternal uncle- bipolar disorder- Maternal aunt- lupus, rheumatoid arthritisSocial History: 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 There has not been any injuries that have required medical attentionHead: Negative for any medical issues regarding the patient's skullFace: Negative for any facial abnormalitiesNeck: Negative for any medical issues regarding the patient's neck or neckstructuresEyes: Negative for any medical issues regarding the patient's eyesENT: Negative for any medical issues regarding the patient's ears, nose orthroatRespiratory: Negative for any medical issues regarding the lungsCardiovascular: Negative for any medical issues regarding the patient's heartGI: Negative for any medical issues regarding the esophagus, stomach,intestines, exocrine pancreas or liverUrinary: Negative for any medical issues with eliminationMusculoskel: Negative for any medical issues regarding the patient's musclesOrthopedic: Negative for any orthopedic issues involving bones, joints, spine orsoft tissues comprising the orthopedic systemsSkin: Negative for any skin abnormalities or discolorationHematologic: Negative for any medical issues involving the blood or bloodclotting mechanismsEndocrine system: Negative for any medical issues regarding the endocrine systemincluding problems with the thyroid gland or diabetesInfectious: Negative for any infectious processes that have required theassistance of a physicianNeuro exam:VSS: BP 98/60 Pulse 76 Ht 162.4 cm Wt 58.8 kg BMI 22.29 kg/f2Jiflllx: Patient appears healthy, well developed, well nourished and in noacute distressCardiac: Rhythm regular, no murmurs presentRespiratory: CTA, No wheezing, rhonchi or rales present.Mental status: Normal for age including orientation, memory, attention span,language and fund of knowledgeCranial nerve testing revealed the following:II- Pupils constrict to light bilaterally and accomodation reflex present. Nopapilledema on fundoscopic examination to the un-dilated eye.III, IV, - Pupils are equal, round, and reactive to light. Extraocularmovements are intact. No nystagmus or strabismus present.V- Facial sensation was present and symmetricalVII - Eye closure was normal bilaterally and facial contours and strength weresymmetricalVIII - Hearing present and equal bilaterallyIX & X - Uvula midline with normal soft palate movementXI - Shoulder shrug strength appeared normal bilaterallyXII - Tongue protrusion was midlineMotor exam: Normal strength, muscle mass and tone in all extremities.Deep tendon reflexes were 2+ bilaterally.Cerebellar exam noted no involuntary movements or tremors present and finger tonose without dysmetria bilaterally.Sensation was intact and present to light touch.Coordination: fine motor intact, finger/nose exam performed, no abnormalitiespresent. Rapidly alternating movements performed correctly.Gait: tandem gait normal and no ataxic movements presentLabs: NoneImpression: 17yo female with hx of episodic migraine without aura increased infrequency with the start of control to regulate her cycle to chronicmigraine.Plans:1. Keep a headache diary and bring to your next visit.2. Practice good lifestyle habits by: Drinking plenty of fluids Get regular and sufficient sleep Eat balanced meals Avoid skipping any meals especially breakfast Minimize stress Avoid known headache triggers3. Preventive treatment: Begin Propranolol 20mg-Take 1/2 tablet daily for one week and then increase one tablet daily and staythere-Continue Magnesium 400mg+ Riboflavin 400mg-Discussed medication dosing, potential side effects and consistent intake4. Abortive Treatment(Severe): (Treat within 30 minutes of migraine onset) Lay down in a cool, dark, quiet room Apply cold compress to forehead For nausea/vomiting : Zofran 4mg ODT For head pain: Take Imitrex 25mg. If no better in 2 hours, take Imitrex 25mgCan take 2 doses of Imitrex in one day, 4 doses in 2 consecutive days, no morethan 8 days per month.5. Abortive Treatment: (Treat within 30 minutes of migraine onset) Lay down in a cool, dark, quiet room Apply cold compress to forehead For nausea/vomiting: Zofran 4mg ODT For head pain: Rest and chill out, if needed can Take Ibuprofen 2.5 tablets.Limit over the counter medication use to 2-3 days/ week.6. Return in 3 months, sooner if neededPreosiel Underwood, MSN, STOCK REPAIRER, CPNPNeurology Nurse Practitioner[address] [phone] note or partial portions of this note may have been created using a copyforward orcopy paste feature, but these portions have been verified and re-edited foraccuracy and any portions not in need of editing or review are not being used togenerate any component necessary for billing purposes. Elements necessary forproper CPT code selection are based only on elements of the visit that arereviewed, re-examined or unique to this visit.Counseling and/or coordination of care was greater than 20 minutes which is morethan 50% of the total time of 25 minutes spent on the encounter. ALLERGIES ALLERGIES DATE TYPE / CODE NAME / CODE REACTION SEVERITY SOURCE 02/11/2018 Drug Penicillins/D61298 Rash Unknown [place] Allergy/416 0476(RXNORM) [facility] 324694([facility] [place]) Repository 09/22/2017 Drug amoxicillin/H93155 Other [place] Allergy/416 3675(RXNORM) [facility] 966334([facility]) Repository 09/22/2017 Drug penicillin Other [place] Allergy/416 G/[id number](RXNOR [facility] 534606([facility]) Repository 09/12/2015 Drug PENICILLINS RASH [facility] Class/01072 Other [place] 1003(SNOMED Repository CT) 09/12/2015 Drug PENICILLINS [facility] Class/44522 Hospital 1003(SNOMED Repository CT) 04/25/2014 DRUG GLUTEN MEAL Fatigue, joint [facility] INGREDI/419 pain Hospital 365868(SNOM Repository ED CT) 02/22/2013 DRUG/404784 AMOXICILLIN Med [facility] 003(OM[facility] Hospital [facility]) Repository 12/21/2012 DRUG AMOXICILLIN RASH [facility] INGREDI/419 Other [place] 733280(SNOM Repository ED CT) NG/[id number] AMOXICILLIN [facility] 6([facility] Repository NG/[id number] PENICILLINS [facility] 6([facility]) Repository ENCOUNTERS ENCOUNTERS ADMIT/DISCHARGE ACCOUNT NUMBER ADMITTING ENCOUNTER LOCATION SOURCE CLASS 02/11/2018 [id number] Ambulatory [facility] ding:ED Repository 01/31/2018/02/01/20 [id number] Ambulatory [address] Other [place] Repository 01/31/2018 [id number] Ambulatory [facility] Repository 01/31/2018/02/01/20 [id number] Ambulatory [address] MEDICAL Repository CENTERBuildi ng:AKXRMA 01/31/2018/02/01/20 [id number] Ambulatory [address] MEDICAL Repository CENTERBuildi ng:AGGBRCR 01/24/2018 [id number] Ambulatory [facility] MEDICAL Repository CENTERBuildi ng:AKXRMA 01/24/2018 [id number] Ambulatory [facility] MEDICAL Repository CENTERBuildi ng:AGGBRCR 09/22/2017/09/23/19 [id number] Ambulatory BMSBuilding: [address] Repository 09/20/2017/09/21/19 [id number] Ambulatory [address] Main [place] Repository 09/20/2017/09/22/19 [id number] Ambulatory [address] Main [place] Repository 08/26/2017/08/26/19 [id number] Ambulatory [address] ding:OLAB Foundation Repository 08/25/2017/08/25/19 [id number] Emergency [address] Other [place] Repository 08/04/2017/08/04/19 [id number] Ambulatory THUY Jaimes [address] [place] [address] ding:RAD Foundation Repository 07/26/2017/07/26/19 [id number] Ambulatory [address] Other [place] Repository 07/26/2017/07/26/19 [id number] Ambulatory [address] MEDICAL Repository CENTERBuildi ng:AGGBRCR 07/26/2017 [id number] Ambulatory [facility] Repository 07/26/2017/07/26/19 [id number] Ambulatory [address] MEDICAL Repository CENTERBuildi ng:AKXRMA 07/12/2017 [id number] Ambulatory [facility] ding:LABSPEC Repository 07/12/2017/07/12/19 [id number] Ambulatory BMSBuilding: [address] Repository 04/19/2017/04/19/20 [id number] Ambulatory Building:[address] Repository PAYERS PAYERS ENCOUNTER GUARANTOR PAYER SUBSCRIBER SOURCE 02/11/2018 Primary Insurance[facility] Effective Hospital Date:2018-02-11 Repository 01/31/2018 [place] Primary Insurance:DON REEVES [facility]VARISTO: ACCESS Kim JULIETTEEVARISTO: [facility] System Number: [id number] Repository [address] [id number] [place], [place] Date: [address]Cfi: (HP) 01/31/2018 [place] Primary Insurance:DON [facility] JULIETTEEVARISTO: ACCESS Kim JULIETTEFRANCISCO: [facility] System Number: [id number] Repository [address] [id number] [place], [place] Date: [address]Yix: (HP) 01/24/2018 [place] Primary Insurance:DON [facility] JULIETTEFRANCISCOOB: ACCESS Kim [facility]: Health System Number: [id number] Repository [address] [id number] [place], [place] Date: [address]Dps: (HP) 01/24/2018 [facility] Insurance:[facility]ESS [facility] ANDERSONOB: Health System Number: [id number] Repository [address] [id number] [place], [place] Date: [address]Qfm: (HP) 09/22/2017 DARRYL JP Primary [facility]woodAN8139 Insurance:[facility]Anorth general hospitaljanae [facility] Number: [facility], [place] [id number] Repository [address]Gzs: (330) Date:[id number] [phone] () TENA DIAZ [address]JX: 09/22/2017 Secondary NOT GIVENSHELIA [place] Insurance:SELF PAY [facility] Number: Effective Repository Date:2017-09-22 08/26/2017 D[facility]YLColumbus Regional Healthcare SystemOB: Insurance:COUNTS INCLUDE 234 BEDS AT THE [facility]ITALRAMSEY SEGOVIATEMPE ST. LUKE'S HOSPITALOB: [facility] [id number] Repository [place] Number: [address] [place] [id number] [facility] HEALTH [place], [place] [address]Fjg: 330) Date:2017-08-26 00353Rhs: [id number] [phone] ()Tel: ([phone]) Name:Mikala CHOU () () TENA Diaz [phone] () 39[address]GV: 08/04/2017 DARRYL Elenita [facility]villeOB: Insurance:JAMES ANDERSONOB: [facility] [place] [facility] [id number] Repository [place] Number: [address] [place], [place] [id number] [place], [place] [address]Fqo: (330) Date:2017-08-04 59594Rgi: [id number] [phone] ()Tel: ([phone]) Name:CARLOS CHOU (HP) (WP) TENA Diaz [phone] (WP) 799[address]YN: 07/26/2017 [place] Primary Insurance:DON PIÑANew [facility] Hospital at Danversron [facility]: ACCESS [facility]PD[facility]: Health System Number: [id number] Repository [place] [id number] [place], [place] Date: [address]Opn: () 07/26/2017 [place] Primary Insurance:BIM LEANDRO [facility]: ACCESS PPDuke [facility]: Health System Number: [id number] Repository [place] [id number] [place], [place] Date: [address]Bkg: (HP) 07/12/2017 DARRYL JP Primary LEANDRO Olivas [id number] Insurance:Armando BLUE Community POWER Number: [place], [place] [id number] Repository [address]Jdk: (330) Date:[id number] [phone] (HP) [id number], [place] [address]AT: 07/12/2017 Secondary NOT GIVENUNK [place] Insurance:SELF PAY Community [facility] Number: Effective Repository Date:2017-07-12 07/12/2017 DARRYL JP Primary LEANDRO Olivas [id number] Insurance:Armando DIAZ: Community POWER Number: [id number] [id number] Repository [address]Upe: (330) Date:8725-06-15UI [phone] (HP) TENA DIAZ [address]PX: 07/12/2017 Secondary NOT GIVENUNK [place] Insurance:SELF PAY [facility] Number: Effective Repository Date:2017-07-12 04/19/2017 DARRYL Kwong Primary LEANDRO Lund[facility]ILITATIONFRANCISCOOB: Insurance:Armando CAALFRANCISCOOB: [facility] [id number] Number: [id number] Repository [place] [id number] [facility]ITALLINDY[place], [place] Date: [place], [place] [address]Zcp: [phone] ()
--- NOTE | 2018-02-11 17:27 | ED.DEP ---
ED Disposition - Plan for ED Patient: Chief Complaint: Lower Extremity Injury Instructions: ED Sprain Ankle W X Ray Referrals: Jose Kwon DO [Primary Care Provider] -
== END 2018-02-11 17:39 | disposition home or self-care (01) ==
LOC: ED 17:13
PROVIDERS: Emergency Provider Emergency Medicine; Family Provider Preventive Medicine Occupational Medicine; PCP Preventive Medicine Occupational Medicine
DX: S93.402A Sprain of unspecified ligament of left ankle, initial encounter (principal); X50.1XXA Overexertion from prolonged static or awkward postures, initial encounter; Y93.89 Activity, other specified; Y92.9 Unspecified place or not applicable
CPT/HCPCS: 73610; 99282

== ENCOUNTER → 2018-04-20 16:03 | Outpatient (CLI) | payer BC, SELFPAY ==
[2018-04-20 19:28] LABS: Chlamydia Trachomatis by PCR Negative (Negative); Neisserai gonorrhoeae by PCR Negative (Negative); Probe Check PASS; Sample Adequacy Control PASS; Specimen Processing Control PASS
== END ==
PROVIDERS: Referring Provider Nurse Practitioner Women's Health; Visit Provider Nurse Practitioner Women's Health
DX: Z11.3 Encounter for screening for infections with a predominantly sexual mode of transmission (principal); N76.0 Acute vaginitis
CPT/HCPCS: 87070; 87205; 87491; 87591

== ENCOUNTER → 2018-07-27 13:53 | Outpatient (CLI) | payer BC, SELFPAY ==
[2018-07-27 14:58] LABS: hCG Titer Quant., Serum < 1 mIU/mL (<9 non-preg)
== END ==
PROVIDERS: Family Provider Preventive Medicine Occupational Medicine; PCP Preventive Medicine Occupational Medicine; Visit Provider Nurse Practitioner Women's Health
DX: N92.6 Irregular menstruation, unspecified (principal)
CPT/HCPCS: 36415; 84702

== ENCOUNTER → 2019-07-16 18:17 | Outpatient (CLI) | payer SELFPAY | PROVIDERS: Family Provider Preventive Medicine Occupational Medicine; PCP Preventive Medicine Occupational Medicine; Visit Provider Nurse Practitioner Women's Health | DX: Z00.00 Encounter for general adult medical examination without abnormal findings (principal) ==

== ENCOUNTER → 2019-07-16 18:44 | Outpatient (CLI) | payer BC, MEDICAID, SELFPAY ==
[2019-07-16 19:17] LABS: hCG Titer Quant., Serum 698 mIU/mL (1-3)
== END ==
PROVIDERS: Family Provider Preventive Medicine Occupational Medicine; PCP Preventive Medicine Occupational Medicine; Visit Provider Nurse Practitioner Women's Health
DX: N92.6 Irregular menstruation, unspecified (principal)
CPT/HCPCS: 36415; 84702

== ENCOUNTER → 2019-07-19 10:04 | Outpatient (CLI) | payer MEDICAID, SELFPAY ==
[2019-07-19 11:03] LABS: hCG Titer Quant., Serum 1708 mIU/mL (1-3)
== END ==
PROVIDERS: Obstetrics & Gynecology; PCP Preventive Medicine Occupational Medicine; Referring Provider Nurse Practitioner Women's Health; Visit Provider Nurse Practitioner Women's Health
DX: Z34.90 Encounter for supervision of normal pregnancy, unspecified, unspecified trimester (principal); N92.6 Irregular menstruation, unspecified
CPT/HCPCS: 36415; 84702

== ENCOUNTER → 2019-08-27 12:30 | Outpatient (CLI) | payer MEDICAID, SELFPAY ==
[2019-08-27 11:46] VITALS: BMI 23.8
[2019-08-27 13:49] LABS: Absolute Lymphocyte Count 0.85 X10^3/uL (0.83-4.51); Absolute Neutrophil Count 7.3 X10^3/uL (2.0-7.7); Basophil# 0.04 X10^3/uL; Basophil% 0.5 % (0-1); Eosinophil# 0.02 X10^3/uL; Eosinophils% 0.2 % (0-5); Hemoglobin 13.7 g/dL (12.0-15.0); Lymphocyte # 0.85 X10^3/ul (4.0); Lymphocyte % 9.6 % (19-41); Mean Corp Hgb Conc 33.4 g/dL (32-36); Mean Corpuscular Hgb 30.3 pg (27.0-32.0); Mean Corpuscular Volume 90.7 fL (81-99); Mean Platelet Vol. 10.6 fl (6.2-12.0); Monocyte# 0.56 X10^3/uL; Monocyte% 6.3 % (0-10); NRBC Flagged by Analyzer 0 % (0-5); Neutrophil # 7.33 X10^3/uL (2.7-7.7); Neutrophil % 83.1 % (47-70); Platelet Count 254 K/mm3 (150-450); RBC Distribution Width CV 13.8 % (11.6-14.6); RBC Distribution Width SD 46.2 fl (35.1-43.9); Red Blood Count 4.52 M/mm3 (4.2-5.4); White Blood Count 8.8 K/mm3 (4.4-11.0)
[2019-08-27 14:01] LABS: NATERA MAILED SPECIMEN
[2019-08-27 16:56] LABS: Amphetamine Urine VISTA NEGATIVE (<1000 ng/mL); Barbiturate Urine VISTA NEGATIVE (< 200 ng/mL); Benzodiazepine Urine VISTA NEGATIVE (< 200 ng/mL); Cocaine Urine VISTA NEGATIVE (< 300 ng/mL); Ecstacy Urine VISTA NEGATIVE (< 500 ng/mL); Methadone Urine VISTA NEGATIVE (< 300 ng/mL); PCP Urine VISTA NEGATIVE (< 25 ng/mL); THC Urine VISTA POSITIVE (< 50 ng/mL); Vista UDS pH Range 6
[2019-08-27 18:16] LABS: Chlamydia Trachomatis by PCR Negative (Negative); Neisserai gonorrhoeae by PCR Negative (Negative); Probe Check PASS; Sample Adequacy Control PASS; Specimen Processing Control PASS
[2019-08-28 10:03] LABS: HIV - WCH Non-Reactive (Nonreactive); Hepatitis B Surface Antigen Non-Reactive (Nonreactive); Hepatitis C Antibody Non-Reactive (Nonreactive); Rubella IgG 103.7 IU/mL
[2019-08-30 01:05] LABS: Rapid Plasmin Reagin (RPR) NONREACTIVE (NONREACTIVE)
[2019-08-31 01:12] LABS: HPV Reflexed? NOT INDICATED
== END ==
PROVIDERS: PCP Preventive Medicine Occupational Medicine; Referring Provider Obstetrics & Gynecology; Visit Provider Obstetrics & Gynecology
DX: Z34.90 Encounter for supervision of normal pregnancy, unspecified, unspecified trimester (principal)
CPT/HCPCS: 36415; 80307; 85025; 86592; 86703; 86762; 86803; 86850; 86900; 86901; 87086; 87088; 87340; 87491; 87591; 88175; G0145

== ENCOUNTER → 2019-11-22 09:39 | Outpatient (CLI) | payer MEDICAID, SELFPAY ==
[2019-11-22 08:49] VITALS: BMI 23.8
== END ==
PROVIDERS: PCP Preventive Medicine Occupational Medicine; Referring Provider Obstetrics & Gynecology; Visit Provider Obstetrics & Gynecology
DX: Z34.80 Encounter for supervision of other normal pregnancy, unspecified trimester (principal)
CPT/HCPCS: 36415

== ENCOUNTER → 2019-12-21 12:58 | Outpatient (CLI) | payer MEDICAID, SELFPAY ==
[2019-11-22 08:49] VITALS: BMI 23.8
== END ==
PROVIDERS: PCP Preventive Medicine Occupational Medicine; Visit Provider Obstetrics & Gynecology
DX: Z00.00 Encounter for general adult medical examination without abnormal findings (principal)

== ENCOUNTER → 2020-01-11 12:22 | Outpatient (CLI) | payer MEDICAID, SELFPAY ==
[2019-12-21 13:24] VITALS: BMI 23.8
[2020-01-11 13:20] LABS: Absolute Lymphocyte Count 1.06 X10^3/uL (0.83-4.51); Basophil# 0.06 X10^3/uL; Basophil% 0.5 % (0-1); Eosinophil# 0.07 X10^3/uL; Eosinophils% 0.6 % (0-5); Hematocrit 31.4 % (37-47); Hemoglobin 10.2 g/dL (12.0-15.0); Lymphocyte # 1.06 X10^3/ul (4.0); Lymphocyte % 9.6 % (19-41); Mean Corp Hgb Conc 32.5 g/dL (32-36); Mean Corpuscular Hgb 29.9 pg (27.0-32.0); Mean Corpuscular Volume 92.1 fL (81-99); Mean Platelet Vol. 10.7 fl (6.2-12.0); Monocyte# 0.65 X10^3/uL; Monocyte% 5.9 % (0-10); NRBC Flagged by Analyzer 0 % (0-5); Neutrophil # 8.98 X10^3/uL (2.7-7.7); Neutrophil % 81.2 % (47-70); Platelet Count 212 K/mm3 (150-450); RBC Distribution Width SD 42.4 fl (35.1-43.9); Red Blood Count 3.41 M/mm3 (4.2-5.4); White Blood Count 11.1 K/mm3 (4.4-11.0)
[2020-01-11 13:41] LABS: Glucose Challenge Gest 1H 50g 170 mg/dL (70-140)
[2020-01-11 16:26] LABS: Amphetamine Urine VISTA NEGATIVE (<1000 ng/mL); Barbiturate Urine VISTA NEGATIVE (< 200 ng/mL); Benzodiazepine Urine VISTA NEGATIVE (< 200 ng/mL); Cocaine Urine VISTA NEGATIVE (< 300 ng/mL); Ecstacy Urine VISTA NEGATIVE (< 500 ng/mL); Methadone Urine VISTA NEGATIVE (< 300 ng/mL); PCP Urine VISTA NEGATIVE (< 25 ng/mL); THC Urine VISTA NEGATIVE (< 50 ng/mL); Vista UDS pH Range 6
== END ==
PROVIDERS: PCP Preventive Medicine Occupational Medicine; Referring Provider Obstetrics & Gynecology; Visit Provider Obstetrics & Gynecology
DX: Z34.90 Encounter for supervision of normal pregnancy, unspecified, unspecified trimester (principal); Z87.898 Personal history of other specified conditions
CPT/HCPCS: 36415; 80307; 82950; 85025

== ENCOUNTER → 2020-01-25 09:57 | Outpatient (CLI) | payer MEDICAID, SELFPAY ==
[2020-01-11 13:58] VITALS: BMI 23.8
[2020-01-25 09:53] VITALS: BMI 23.8
[2020-01-25 10:37] LABS: Glucose GTT-Gestation. Fasting 82 mg/dL (<105)
[2020-01-25 12:06] LABS: Glucose GTT-Gestational 1 Hr 150 mg/dL (<190)
[2020-01-25 13:00] LABS: Glucose GTT-Gestational 2 Hr 107 mg/dL (<165)
[2020-01-25 14:27] LABS: Glucose GTT-Gestational 3 Hr 43 L (<145)
[2020-01-25 15:15] LABS: Amphetamine Urine VISTA NEGATIVE (<1000 ng/mL); Barbiturate Urine VISTA NEGATIVE (< 200 ng/mL); Benzodiazepine Urine VISTA NEGATIVE (< 200 ng/mL); Cocaine Urine VISTA NEGATIVE (< 300 ng/mL); Ecstacy Urine VISTA NEGATIVE (< 500 ng/mL); Methadone Urine VISTA NEGATIVE (< 300 ng/mL); PCP Urine VISTA NEGATIVE (< 25 ng/mL); THC Urine VISTA NEGATIVE (< 50 ng/mL); Vista UDS pH Range 7
== END ==
PROVIDERS: PCP Preventive Medicine Occupational Medicine; Referring Provider Obstetrics & Gynecology; Visit Provider Obstetrics & Gynecology
DX: O09.90 Supervision of high risk pregnancy, unspecified, unspecified trimester (principal); Z87.898 Personal history of other specified conditions; Z3A.00 Weeks of gestation of pregnancy not specified
CPT/HCPCS: 36415; 80307; 82951; 82952

== ENCOUNTER → 2020-02-22 15:05 | Outpatient (CLI) | payer MEDICAID, SELFPAY ==
[2020-02-22 13:08] VITALS: BMI 28.7
== END ==
PROVIDERS: PCP Preventive Medicine Occupational Medicine; Referring Provider Obstetrics & Gynecology; Visit Provider Obstetrics & Gynecology
DX: O09.90 Supervision of high risk pregnancy, unspecified, unspecified trimester (principal); Z3A.00 Weeks of gestation of pregnancy not specified
CPT/HCPCS: 87081

== ENCOUNTER 2020-02-25 19:02 | Emergency (ER) | payer MEDICAID, SELFPAY ==
[2020-02-22 18:15] VITALS: BMI 23.8
[2020-02-25 19:03] VITALS: BP 103/72; PULSE 60; RESP 16; TEMP 36.6; O2SAT 99; BMI 28.0
--- NOTE | 2020-02-25 19:36 | CT_ITS ---
STUDY: CT ABDOMEN AND PELVIS WITH CONTRAST REASON FOR EXAM: Female, 19 years old. ? APPENDICITIS/36 WEEKS RADIATION DOSAGE (If Supplied By Facility): CTDIvol = ( 12.37 ) mGy, DLP = ( 777.99 ) mGycm TECHNIQUE: Transaxial images were obtained from the dome of the diaphragm to the symphysis pubis without oral contrast. Oral and amp; IV Gastrografin and amp; 100mL Isovue-300 was administered. Sagittal and coronal images were reconstructed. Individualized dose optimization techniques were used for this CT. COMPARISON: None. FINDINGS: The visualized lung bases are unremarkable. The visualized portions of the heart are within normal limits. Normal liver. Normal gallbladder and extrahepatic biliary system. Normal spleen. Normal pancreas. Normal bilateral adrenal glands. Moderate right hydronephrosis and possible mild left hydronephrosis. Normal visualized stomach. Oral contrast noted in the proximal small bowel. Normal colon. The appendix is visualized and appears normal. Normal abdominal aorta. Normal inferior vena cava. Normal retroperitoneum. Normal urinary bladder. Term intrauterine gestation. Normal abdominal wall. Pseudoarticulation L5-S1 bilaterally. CT/Abdomen/Pelvis WITH Contrast IMPRESSION: Term . Right greater than left hydronephrosis. No radiodense urolithiasis. Normal appendix. Electronically Signed: Freddy Powell MD at 21:49 EDT , Service support ,
[2020-02-25 20:22] LABS: Mucous, Urine 0 SEEN /hpf (<or=2+)
[2020-02-25 20:23] LABS: Absolute Lymphocyte Count 1.58 X10^3/uL (0.83-4.51); Absolute Neutrophil Count 7.8 X10^3/uL (2.0-7.7); Basophil# 0.08 X10^3/uL; Basophil% 0.7 % (0-1); Eosinophil# 0.08 X10^3/uL; Eosinophils% 0.7 % (0-5); Hematocrit 33.2 % (37-47); Hemoglobin 10.6 g/dL (12.0-15.0); Lymphocyte # 1.58 X10^3/ul (4.0); Lymphocyte % 14.8 % (19-41); Mean Corp Hgb Conc 31.9 g/dL (32-36); Mean Corpuscular Hgb 27.1 pg (27.0-32.0); Mean Corpuscular Volume 84.9 fL (81-99); Monocyte# 0.96 X10^3/uL; NRBC Flagged by Analyzer 0 % (0-5); Neutrophil # 7.76 X10^3/uL (2.7-7.7); Neutrophil % 72.6 % (47-70); Platelet Count 268 K/mm3 (150-450); RBC Distribution Width CV 14.2 % (11.6-14.6); RBC Distribution Width SD 43.8 fl (35.1-43.9); Red Blood Count 3.91 M/mm3 (4.2-5.4); White Blood Count 10.7 K/mm3 (4.4-11.0)
[2020-02-25 20:33] LABS: Anion Gap 6 (5-15); BUN 3 mg/dL (7-18); Calcium,Total 8.9 mg/dL (8.5-10.1); Chloride 109 mmol/L (98-107); Creatinine, Serum 0.61 mg/dL (0.55-1.02); EST Glomerular Filtration Rate 132 mL/min (>60); Est Glom Filt Rate - Afr Amer 159 mL/min (>60); Estimated Creatinine Clearance 120.68 ml/min; Glucose 77 mg/dL (74-106); Potassium 3.4 mmol/L (3.5-5.1); Sodium Level 140 mmol/L (136-145)
[2020-02-25 20:43] LABS: Color, Urine Yellow (Yellow); Glucose, Dipstick Normal (Normal); Ketone-Dipstick Negative (Negative); Leukocyte Esterase-Dipstick 500 /ul (Negative); Nitrite-Dipstick Negative (Negative); Occult Blood-Urine 10 /ul (Negative); Protein-Dipstick Negative (Negative); Specific Gravity, Urine 1.015 (1.002-1.030); Urine Bilirubin Dipstick Negative (Negative); Urine Clarity Cloudy (Clear); Urine Urobilinogen Normal (Normal)
[2020-02-25 21:22] VITALS: BP 118/84; PULSE 96; RESP 18; O2SAT 99
[2020-02-25 21:47] LABS: Red Blood Cells-Urine 5-10 SEEN /hpf (0-5); Squamous Epithelial Cells - UA 5-10 SEEN /hpf (5-10); Transitional Epithelial - Ur 0 SEEN /hpf (0-5); White Blood Cells 50-100 SEEN /hpf (0-5)
[2020-02-25 21:48] LABS: Bacteria 2+ /hpf (None Seen)
--- NOTE | 2020-02-25 21:48 | ED.RN ---
escorted down to OB in wheelchair by this RN for NST per Dr Olsen and Dr Taylor. Pt is to come back to ED after NST to be re-evaluated by Dr Taylor.
--- NOTE | 2020-02-25 22:36 | NURSING ---
was called in regards to NST, provider reviewed FHR strip remotely and order given for pt to go back to ER. Pt transferred back to ER via wheelchair by this RN. update given to Henry ECHEVERRIA RN
--- NOTE | 2020-02-25 23:12 | ED.DCSUM_ITS ---
- ER Visit Summary Date of Service: 02/25/20 Chief Complaint: Abdominal pain History of Present Illness: The patient is a 19 F presenting with abdominal pain. Patient states this started today. She has pain in the right lower quadrant. She is 36 weeks . She denies vaginal bleeding or cramping. She is G1, P0. She denies fever. Denies change in appetite. Denies nausea or vomiting. Denies urinary complaints. Physical Examination: Vitals are stable. Patient is afebrile. Alert no acute distress. HEENT exam is unremarkable. Neck is supple. Lungs are clear and equal bilaterally. Heart is regular rate and rhythm. Abdomen is soft gravid, RLQ tenderness, no rebound or guarding Extremities are unremarkable. Skin is warm and dry. Remainder of exam is unremarkable. Emergency Department Course and Treatment: CBC normal except hemoglobin 10.6. Chemistries unremarkable. Urinalysis shows 50-100 white blood cells, 5-10 red blood cells, 2+ bacteria. Urine culture was sent. Discussed with patient and her mother who is her power of elementary school teacher, and Dr. Olsen. Patient will undergo CT abdomen pelvis to rule out acute appendicitis. She is advised of risks/benefits of CT scan. CT abdomen pelvis was obtained and shows term . Right greater than left hydronephrosis. No radiodense urolithiasis. Normal appendix. heart tones 152. Patient went to OB and had a nonstress test which was reportedly normal. She will follow-up with Dr. Olsen. She is given Keflex and a prescription for Keflex. She is advised to return to the ED for worsening complaints. She will otherwise follow-up with her PASSENGER RELATIONS REPRESENTATIVE. Disposition: Discharge home Impression: Abdominal pain in , UTI This note was generated with [employer] dictation software. It may contain incorrect words, spelling, and punctuation that were not noted in review of the chart prior to signing ED Disposition - Plan for ED Patient: Referrals: Jose Kwon DO [Primary Care Provider] -
--- NOTE | 2020-02-25 23:16 | ED.DEP ---
ED Disposition - Plan for ED Patient: Instructions: ED Abdominal Pain Unkn Cause Fem, Understanding Urinary Tract Infections (UTIs) Prescriptions: Cephalexin [Keflex] 500 mg PO Q12 #14 cap Prescription Printed Referrals: Jose Kwon DO [Primary Care Provider] - Devora Olsen MD [STAFF PHYSICIAN] -
[2020-02-25] MEDS: Cephalexin 250 MG Capsule 500 MG PO (23:22)
[2020-02-25 23:27] VITALS: BP 116/79; PULSE 77; RESP 16; O2SAT 97
--- NOTE | 2020-02-26 05:02 | OB.TRI.PN ---
Progress Notes Date of Service: 02/25/20 Progress Note: Patient presents for triage evaluation secondary to abdominal pain ruled out in the ER for appendicitis had normal imaging. Suspect musculoskeletal FHT: 140 Moderate variability reactive no decelerations category I tracing [place]: no Contractions Assessment and plan: Abdominal pain and reactive NST, reassuring maternal and status patient discharged to home to follow-up as scheduled. See problem list details for additional plan information. Laboratory Studies: Laboratory Tests 02/25/20 02/25/20 02/25/20 Range/Units 20:19 20:07 20:07 WBC 10.7 (4.4-11.0) K/mm3 RBC 3.91 L (4.2-5.4) M/mm3 Hgb 10.6 L (12.0-15.0) g/dL Hct 33.2 L (37-47) % MCV 84.9 (81-99) fL MCH 27.1 (27.0-32.0) pg MCHC 31.9 L (32-36) g/dL RDW Std Deviation 43.8 (35.1-43.9) fl RDW Coeff of Daryl 14.2 (11.6-14.6) % Plt Count 268 (150-450) K/mm3 MPV 11.0 (6.2-12.0) fl Immature Gran % (Auto) 2.200 H (0.0-0.9) % Neut % (Auto) 72.6 H (47-70) % Lymph % (Auto) 14.8 L (19-41) % [place] % (Auto) 9.0 (0-10) % Eos % (Auto) 0.7 (0-5) % Baso % (Auto) 0.7 (0-1) % Absolute Neuts (auto) 7.8 H (2.0-7.7) X10^3/uL Absolute Lymphs (auto) 1.58 (0.83-4.51) X10^3/uL Nucleated RBC % 0 (0-5) % Sodium 140 (136-145) mmol/L Potassium 3.4 L (3.5-5.1) mmol/L Chloride 109 H (98-107) mmol/L Carbon Dioxide 25.0 (21.0-32.0) mmol/L Anion Gap 6 (5-15) BUN 3 L (7-18) mg/dL Creatinine 0.61 (0.55-1.02) mg/dL Estim Creat Clear Calc 120.68 ml/min Est GFR (MDRD) Af Amer 159 (>60) mL/min Est GFR (MDRD) Non-Af 132 (>60) mL/min BUN/Creatinine Ratio 5.0 L (10-20) RATIO Glucose 77 (74-106) mg/dL Calcium 8.9 (8.5-10.1) mg/dL Urine Color Yellow (Yellow) Urine Clarity Cloudy (Clear) Urine pH 7.0 (5.0 - 8.0) Ur Specific [place]ael 1.015 (1.002-1.030) Urine Protein Negative (Negative) mg/dl Urine Glucose (UA) Normal (Normal) mg/dl Urine Ketones Negative (Negative) mg/dl Urine Occult Blood 10 H (Negative) /ul Urine Nitrite Negative (Negative) Urine Bilirubin Negative (Negative) mg/dL Urine Urobilinogen Normal (Normal) mg/dl Ur Leukocyte Esterase 500 H (Negative) /ul Urine RBC 5-10 SEEN (0-5) /hpf Urine WBC 50-100 SEEN (0-5) /hpf Ur Squamous Epith Cells 5-10 SEEN (5-10) /hpf Ur Transition Epith Cell 0 SEEN (0-5) /hpf Urine Bacteria 2+ (None Seen) /hpf Urine Mucus 0 SEEN (<or=2+) /hpf - Problem List (1) Abdominal pain affecting Status: Acute Comment: seen 02/24 in ER and triage, nl ct scan, reactive nst, fu in office as scheduled Multi Select Codes - Urinary/Genital Urinary/Genital CPT Codes: 67799-42 non-stress test Interp
== END 2020-02-25 23:34 | disposition home or self-care (01) ==
LOC: ED 19:37
PROVIDERS: Emergency Provider Emergency Medicine; PCP Preventive Medicine Occupational Medicine
DX: O26.893 Other specified pregnancy related conditions, third trimester (principal); O23.43 Unspecified infection of urinary tract in pregnancy, third trimester; Z3A.36 36 weeks gestation of pregnancy
CPT/HCPCS: 59025; 59050; 74177; 80048; 81001; 85025; 87086; 87088; 99284; Q9967; A4216

== ENCOUNTER 2020-02-27 20:35 | Outpatient (CLI) | payer MEDICAID, SELFPAY ==
[2020-02-27 20:52] VITALS: BP 116/68; PULSE 105; PULSE 107; TEMP 36.6; O2SAT 99
[2020-02-27 20:58] VITALS: BMI 28.7
[2020-02-27 22:05] LABS: ROM Internal Control Test YES-OK TO RESULT pt. (Internal QC); ROM Patient Test Negative (Negative)
--- NOTE | 2020-02-28 08:30 | OB.TRI.PN_ITS ---
Progress Notes Date of Service: 02/27/20 Progress Note: Patient presents for triage evaluation secondary to leakage of fluid. FHT: Moderate variability reactive no decelerations category I tracing [place]: Irregular Contractions Assessment and plan: Reactive NST, reassuring maternal and status patient discharged to home to follow-up following day in the office. See problem list details for additional plan information. Laboratory Studies: Laboratory Tests 3 02/27/20 Range/Units 21:09 Vag Amniotic Fld Detect Negative (Negative) - Problem List (1) Leakage, amniotic fluid Status: Acute Comment: Seen in triage for LOF on 02/26. Ftp. ROM negative. Multi Select Codes - Urinary/Genital Urinary/Genital CPT Codes: 64304-58 non-stress test Interp
== END 2020-02-27 22:24 | disposition home or self-care (01) ==
PROVIDERS: PCP Preventive Medicine Occupational Medicine; Referring Provider Obstetrics & Gynecology; Visit Provider Obstetrics & Gynecology
DX: O42.90 Premature rupture of membranes, unspecified as to length of time between rupture and onset of labor, unspecified weeks of gestation (principal)
CPT/HCPCS: 59025; 59050; 84112; 94760; 99218; G0378

== ENCOUNTER → 2020-03-12 17:17 | Outpatient (CLI) | payer MEDICAID, SELFPAY ==
[2020-03-07 09:11] VITALS: BMI 28.7
== END ==
PROVIDERS: PCP Preventive Medicine Occupational Medicine; Referring Provider Obstetrics & Gynecology; Visit Provider Obstetrics & Gynecology
DX: Z11.59 Encounter for screening for other viral diseases (principal)
CPT/HCPCS: 87635; C9803; U0003

== ENCOUNTER 2020-03-14 01:05 | Outpatient (CLI) | payer MEDICAID, SELFPAY ==
[2020-03-13 15:16] VITALS: BMI 28.7
[2020-03-14 01:33] VITALS: BP 126/73; PULSE 102
[2020-03-14 01:34] VITALS: PULSE 112; O2SAT 100
[2020-03-14 01:41] VITALS: BMI 29.2
--- NOTE | 2020-03-14 03:56 | OB.TRI.PN ---
Progress Notes Date of Service: 03/14/20 Progress Note: 19yo G1 at 39 weeks gestation presents with contractions. 2cm on presentation which is unchanged from the office. Unchanged on recheck. NST reactive. Discharged to home in stable condition. - Problem List (1) False labor Status: Acute (2) Supervision of high-risk Status: Acute Qualifiers: Comment: PRR BERNADETTE 03/21/20, girl [place] BF Gordon (3) Abnormal glucose tolerance affecting , antepartum Status: Acute Comment: normal 3gtt (4) LGSIL on Pap smear of cervix Status: Acute Comment: repeat at PP (5) History of marijuana use Status: Acute Comment: Positive tox screen 08/27/19.Random tox screen Neg tox 01/25/2020 (6) Status: Acute Qualifiers: Comment: NIPT low risk. carrier neg. . nl afp. normal anatomy Multi Select Codes - Urinary/Genital Urinary/Genital CPT Codes: 26279-20 non-stress test Interp
== END 2020-03-14 04:20 | disposition home or self-care (01) ==
LOC: WPOUT 01:10 → WP 01:11
PROVIDERS: PCP Preventive Medicine Occupational Medicine; Visit Provider Obstetrics & Gynecology
DX: O47.1 False labor at or after 37 completed weeks of gestation (principal); Z3A.39 39 weeks gestation of pregnancy
CPT/HCPCS: 59025; 59050; 99218; G0378

== ENCOUNTER 2020-03-15 07:40 | Inpatient (IN) | payer MEDICAID, SELFPAY ==
[2020-03-14 01:41] VITALS: BMI 29.2
[2020-03-15] VITALS (31 sets, daily range): BP systolic 111–134; BP diastolic 64–83; PULSE 81–182; RESP 16; TEMP 36.4–37.1; O2SAT 82–100; BMI 29.2
[2020-03-15] MEDS: Lactated Ringers 500 ML IV.SOLN. IV (07:05)
[2020-03-15] MEDS: 0.9% Saline Lock 10 ML Syringe IV (07:08)
[2020-03-15] MEDS: fentaNYL 100 MCG/2 ML Ampul 50 MCG IV (07:08)
[2020-03-15] MEDS: Ondansetron 4 MG/2 ML Vial IV (07:08)
[2020-03-15] MEDS: Lactated Ringers 1,000 ML 50 ML IV (07:08)
[2020-03-15 07:27] LABS: Absolute Lymphocyte Count 0.84 X10^3/uL (0.83-4.51); Absolute Neutrophil Count 9.3 X10^3/uL (2.0-7.7); Basophil# 0.08 X10^3/uL; Basophil% 0.7 % (0-1); Eosinophil# 0.03 X10^3/uL; Eosinophils% 0.3 % (0-5); Hematocrit 35.8 % (37-47); Hemoglobin 11.5 g/dL (12.0-15.0); Lymphocyte # 0.84 X10^3/ul (4.0); Lymphocyte % 7.4 % (19-41); Mean Corp Hgb Conc 32.1 g/dL (32-36); Mean Corpuscular Hgb 26.1 pg (27.0-32.0); Mean Corpuscular Volume 81.2 fL (81-99); Mean Platelet Vol. 11.7 fl (6.2-12.0); Monocyte% 7.1 % (0-10); NRBC Flagged by Analyzer 0.2 % (0-5); Neutrophil # 9.33 X10^3/uL (2.7-7.7); Neutrophil % 82.6 % (47-70); Platelet Count 289 K/mm3 (150-450); RBC Distribution Width CV 15.4 % (11.6-14.6); RBC Distribution Width SD 44.9 fl (35.1-43.9); Red Blood Count 4.41 M/mm3 (4.2-5.4); White Blood Count 11.3 K/mm3 (4.4-11.0)
--- NOTE | 2020-03-15 07:38 | PCM.HPOB.BLA ---
- Problem List (1) Abnormal glucose tolerance affecting , antepartum Status: Acute Comment: normal 3gtt (2) History of marijuana use Status: Acute Comment: Positive tox screen 08/27/19.Random tox screen Neg tox 01/25/2020 (3) LGSIL on Pap smear of cervix Status: Acute Comment: repeat at PP (4) Status: Acute Qualifiers: Comment: NIPT low risk. carrier neg. . nl afp. normal anatomy (5) Supervision of high-risk Status: Acute Qualifiers: Comment: PRR BERNADETTE 03/21/20, girl [place] CARYL Leyva History and Physical Date of Admission: 03/15/20 Intake Vital Signs 03/13/20 Height 5 ft 3 in 03/13/20 Weight: 163 lb 03/13/20 BMI 28.8 03/13/20 BP 104/82 H Intake Visit Reasons: 39 WK OB Chief Complaint: est ob Awning Hanger Helper Required: No Is patient in pain?: No Allergies amoxicillin Allergy (Mild, Verified 03/15/20 06:21) Rash penicillin G Allergy (Mild, Verified 03/15/20 06:21) Rash Penicillins [PCN] Adverse Reaction (Verified 03/15/20 06:21) Rash Medications vitamin#30 30 mg iron-10 mg iron-folic acid 1 mg-omg3 capsule 1 cap PO DAILY 08/27/19 [History Confirmed 03/15/20] Last Menstral Period: 06/22/17 Zika: Zika virus screening: Negative : No PFSH PFSH Medical History Anxiety and depression (Acute) Surgical History H/O breast surgery (Acute) Family History Mother Arthritis Fibromyalgia Father Epilepsy Social History (Updated 03/15/20 @ 06:[address] 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 OB Visit BERNADETTE Calculator Estimated Delivery Date Method Current WG Current Estimate 03/21/20 LMP (Certain) 39w 1d Expected Delivery Route/Plan Labor Preferences- CB/BF classes: declined labor support person: yury labor intervention preferences: undecided - plans to try natural labor, but open to epidural pain management options preferred: open cut cord/dad catch: cut only : yes PP control planned: OCPs discussed possible routes of delivery and associated risks: discussed possible delivery modalities and possible indications for each including R/B/A of , VAVD, and CS. questions answered. special requests: none Specific Issue/Plans flu vaccine: given tdap vaccine: given rhogam: na LARC form signed: declined movement and labor precautions reviewed. Problem list reviewed and updated with the most current plan of care details and appropriate orders placed. Relevant counseling for the gestational age provided. Continue routine care and follow up unless otherwise noted in visit notes/problem list details Initial Weight: 114 lb Date EGA Weight BP Urine Prot Glucose FHR FuHt Pres Dilation Effaced St Visit Note 08/27/19 10w 3d 114 lb (+0 oz) 102/50 168 09/25/19 14w 4d 119 lb (+5 lb) 110/68 155 SM- no vb cramping discuss nipt results 11/22/19 22w 6d 136 lb (+22 lb) Negative Negative 160 23 SM- no vb lof good fm no regular ctx afp today 12/21/19 27w 0d 142 lb (+28 lb) 98/60 Negative Negative 150 27 SM- no vb lof good fm no regular ctx will need cbc and gct redone due to timing, tdap today 01/11/20 30w 0d 146 lb (+32 lb) Negative Negative 140 30 SM- no vb lof good fm no regular ctx 01/25/20 32w 0d 151 lb 2 oz (+37 lb 2 oz) 104/70 Negative Negative 02/07/20 33w 6d 152 lb (+38 lb) 126/86 Negative Negative 140 33 SM- no vb lof good fm no regular ctx 02/22/20 36w 0d 157 lb (+43 lb) 109/70 Negative Negative 140 36 GP - No LOF, VB, DFM, ctx. Denies complaints. GBS today. 02/28/20 36w 6d 159 lb 8 oz (+45 lb 8 oz) 120/86 Negative Negative 160 37 2 60 -1 sM- NO VB LOF GOOD FM NO REUGLAR CTX 03/07/20 38w 0d 163 lb (+49 lb) 110/80 Negative Negative 145 38 2 60 0 Sm- no vb lof good fm nor egular ctx discussed delivery modalities 03/13/20 38w 6d 163 lb (+49 lb) 104/82 Negative Negative 141 39 2 MH-No VB, LOF or reg CTX. Covid test pending. ACOG First Trimester First Trimester: Desire for , Alcohol, Tobacco Cessation, Illicit/Recreational Drug/Substance Use, Intimate Partner Violence, Barriers to care, Unstable Housing, Communication Barriers, Environmental/Work Hazards, Anticipated Course of Care, Toxoplasmosis Precations, Use of Any medications, Sexual activity, Exercise, Dental Care, Sauna/Hot tub use, Seat Belt use, Childbirth classes/Hospital facilities, , Travel, Indications for US and Screening for Aneuploidy Second Trimester Second Trimester: Signs and Symptoms of Labor, Selecting a care provider, Reproductive Life Planning, Care Planning, Tobacco Cessation, Depression/Anxiety and Intimate Partner Violence Third Trimester Third Trimester: Pain Management Plans, Labor support person(s), Immediate Larc, Movement Monitoring and Infant Feeding Yes ; discussed Trial of Labor after Counseling or discussed Circumcision preference Diagnostics Diagnostics Diagnostics Gest Glucose Tolerance MG/DL 01/25/20 Glucose 1 Hr 50 gm 170 mg/dL (70-140) H 01/11/20 Hgb 10.6 g/dL (12.0-15.0) L 02/25/20 Hct 33.2 % (37-47) L 02/25/20 Details: HIV: Urine Culture: Sequential Screen: NIPT Screen: ROS Const Reports system reviewed and no additional complaints, except as docu Card Reports system reviewed and no additional complaints, except as docu Resp Reports system reviewed and no additional complaints, except as docu GI Denies abdominal pain, Denies nausea, Denies vomiting Reports system reviewed and no additional complaints, except as docu Musc Reports system reviewed and no additional complaints, except as docu Exam Const General: cooperative Nutritional Appearance: well nourished [facility] Head: normal to inspection Nose: external nose normal Face and sinus: normal facial exam Neck Neck: normal visual inspection, full ROM, no lymphadenopathy Thyroid: thyroid normal Chest Chest palpation & inspection: normal inspection of the chest Resp Effort & Inspection: normal respiratory effort GI Inspection: normal to inspection Palpation: soft, nontender, other (gravid) Other: vertex and appropriate size for gestational age Other: Cervical Exam: Extrem General: pedal edema Results POC Urinalysis 2 Dip (Clinic) Office Urine Glucose Negative Last Edit by Lucretia Moss on 03/13/20 15:52 Office Urine Protein Negative Last Edit by Lucretia Moss on 03/13/20 15:52 Assessment & Plan Problems 1. Supervision of high risk in third trimester O PRR BERNADETTE 03/21/20, girl [place] Leyva 2. 38 weeks gestation of Z3A.38 NIPT low risk. carrier neg. . nl afp. normal anatomy Plan - Sandy Domingo CHILDCARE ADMINISTRATOR, CHILDCARE ADMINISTRATORMonicaC Patient presents [IAL, plan expectant management for , pitocin/AROM PRN if needed]. Pain management: [plans epidural]. GBS none. Management of any complications: [none] I have reviewed the [facility] and made any clinically relevant updates. Orders Orders: POC Urinalysis 2 Dip (Clinic) 03/13/20 Coding Level of Care Code Off vis,est,level 3 Diagnoses Supervision of high risk in third trimester O ??Trimester: third trimester 38 weeks gestation of Z3A.38 ??Weeks of gestation: 38 weeks
[2020-03-15] MEDS: Oxytocin 30 units/NS 500 ml 30 UNITS/500 ML IV.SOLN 334 UNITS IV (08:55)
--- NOTE | 2020-03-15 09:01 | OP.PCM_ITS ---
Problem List (1) Abnormal glucose tolerance affecting , antepartum Status: Acute Comment: normal 3gtt (2) History of marijuana use Status: Acute Comment: Positive tox screen 08/27/19.Random tox screen Neg tox 01/25/2020 (3) LGSIL on Pap smear of cervix Status: Acute Comment: repeat at PP (4) Status: Acute Qualifiers: Comment: NIPT low risk. carrier neg. 14/14. nl afp. normal anatomy (5) Supervision of high-risk Status: Acute Qualifiers: Comment: PRR BERNADETTE 03/21/20, girl River BF Gordon Vaginal Delivery Maternal Presentation: Active Labor ial Method of Induction: Pitocin Amniotic Membrane Rupture Type: Spontaneous Amniotic Fluid Description: Clear Final BERNADETTE: 03/21/20 Gestational age: 39 Weeks and 1 Days Date of Procedure: 03/15/20 Pre-Operative Diagnosis: ial Post-Operative Diagnosis: same Surgery/ Procedure Performed: Spontaneous Vaginal Delivery Type of Anesthesia: Epidural Description of Procedure: Patient began pushing and delivered the head in the LETICIA presentation. The head was delivered atraumatically. The anterior and posterior shoulders delivered without complication followed by the rest of the infant and the was placed on the maternal abdomen. Delayed cord clamping was employed for approximately 60 seconds. Cord was clamped and cut and gentle traction was applied to the cord and the placenta delivered spontaneously immediately following it was noted to be intact with three-vessel cord. The perineum and vagina were inspected and noted to have no significant laceration. EBL was 100 cc. Patient and infant tolerated delivery well. Presentation: LETICIA Placental Delivery Description: Spontaneous Cord Entanglement: None Estimated Blood Loss: 100 Infant A gender: Female Episiotomy Description: None Laceration: None Medications given after delivery: IV Pitocin Complications: None Multi Select Codes - Urinary/Genital Urinary/Genital CPT Codes: 73715 Vaginal Delivery+ PP Care([facility])
[2020-03-15] MEDS: Acetaminophen 500 MG Tablet 1000 MG PO (12:48)
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
[2020-03-16 04:00] VITALS: BP 118/69; PULSE 97; RESP 16; TEMP 37.1
[2020-03-16 04:21] VITALS: BP 118/69; PULSE 97
[2020-03-16 07:41] VITALS: BP 108/69; PULSE 99
[2020-03-16 08:44] VITALS: BP 108/69; PULSE 99; RESP 18; TEMP 37.3
--- NOTE | 2020-03-16 09:07 | DCINST_ITS ---
Discharge Diet: No Restrictions Discharge Activity: Return to Normal Activity, May not drive while taking narcotic pain medications., May Shower May resume sexual activity in: 4-6 weeks Call your doctor if your incision/area has: Continuous Slow Oozing, Sudden Increased Bleeding, Increased Pain/ Swelling, Increased Redness, Foul Smelling Discharge Additional Instructions: If you experience any of the following, contact your healthcare provider. * Bleeding that soaks a pad every hour for 2 hours * Fever 100.4 or higher * Unrelieved incision or abdominal pain * Swelling, redness, discharge or bleeding from your incision or episiotomy site * Your incision begins to separate * Problems urinating (including inability to urinate or burning while urinating). * Visual changes * Severe headache * Flu-like symptoms * Pain or redness in one of both of your breasts * Pain, warmth, tenderness or swelling in your legs, especially the calf area * Frequent nausea and vomiting * Symptoms of depression or anxiety If you experience any of the following, call 911 or go to the nearest Emergency Room. * Chest pain * Problems breathing * Seizure activity * Partial or complete paralysis of a body part, slurred speech, weakness or drooping of the face, or a sudden inability to walk or hold your balance Allergies/Adverse Reactions: Allergies amoxicillin Allergy (Mild, Verified 03/15/20 06:21) Rash penicillin G Allergy (Mild, Verified 03/15/20 06:21) Rash Penicillins [PCN] Adverse Reaction (Verified 03/15/20 06:21) Rash Medications to take at Discharge vitamin#30 30 mg iron-10 mg iron-folic acid 1 mg-omg3 capsule 1 cap PO DAILY 08/27/19 Please Follow Up With: Devora Olsen MD - [phone] When: Call to make an appointment with your doctor in 6 weeks. If you had elevated Blood pressure or 4th degree laceration you will need to be seen in 2 weeks. Primary Care Physician: Jose Kwon DO [Primary Care Provider] - Test Results: Test results from this visit will be discussed in further detail at your follow- up appointment, if applicable.
--- NOTE | 2020-03-16 09:07 | PCM.DCVAG ---
Discharge Diet: No Restrictions Discharge Activity: Return to Normal Activity, May not drive while taking narcotic pain medications., May Shower May resume sexual activity in: 4-6 weeks Call your doctor if your incision/area has: Continuous Slow Oozing, Sudden Increased Bleeding, Increased Pain/ Swelling, Increased Redness, Foul Smelling Discharge Additional Instructions: If you experience any of the following, contact your healthcare provider. Bleeding that soaks a pad every hour for 2 hours Fever 100.4 or higher Unrelieved incision or abdominal pain Swelling, redness, discharge or bleeding from your incision or episiotomy site Your incision begins to separate Problems urinating (including inability to urinate or burning while urinating). Visual changes Severe headache Flu-like symptoms Pain or redness in one of both of your breasts Pain, warmth, tenderness or swelling in your legs, especially the calf area Frequent nausea and vomiting Symptoms of depression or anxiety If you experience any of the following, call 911 or go to the nearest Emergency Room. Chest pain Problems breathing Seizure activity Partial or complete paralysis of a body part, slurred speech, weakness or drooping of the face, or a sudden inability to walk or hold your balance Allergies/Adverse Reactions: Allergies amoxicillin Allergy (Mild, Verified 03/15/20 06:21) Rash penicillin G Allergy (Mild, Verified 03/15/20 06:21) Rash Penicillins [PCN] Adverse Reaction (Verified 03/15/20 06:21) Rash Medications to take at Discharge vitamin#30 30 mg iron-10 mg iron-folic acid 1 mg-omg3 capsule 1 cap PO DAILY 08/27/19 Please Follow Up With: Devora Olsen MD - [phone] When: Call to make an appointment with your doctor in 6 weeks. If you had elevated Blood pressure or 4th degree laceration you will need to be seen in 2 weeks. Primary Care Physician: Jose Kwon DO [Primary Care Provider] - Test Results: Test results from this visit will be discussed in further detail at your follow-up appointment, if applicable.
--- NOTE | 2020-03-16 09:07 | PCM.PN.OB ---
Subjective: Patient doing well without complaints. Tolerating PO. Ambulating and voiding without difficulty. breast feeding well. Denies chest pain, shortness of breath, calf pain/swelling, fevers, chills, lightheadedness. - Physical Exam Vitals/I&O's: Vital Signs Temp Pulse Resp BP Pulse Ox 99.2 F H 99 18 108/69 99 03/16/20 08:44 03/16/20 08:44 03/16/20 08:44 03/16/20 08:44 03/15/20 16:00 Oxygen Delivery Method Room Air Weight: 165 lb Body Mass Index (BMI) 29.2 Intake and Output for Last 24 Hours 03/14/20 03/15/20 03/16/20 23:59 23:59 23:59 Intake Total 593.33 / 593.33 Output Total 400 / 400 Balance 193.33 / 193.33 General: Alert, Oriented x3 Laboratory Results 03/15/20 08:39: Blood Type O POSITIVE, Antibody Screen NEGATIVE Current Medications Acetaminophen (Tylenol) 1,000 mg PO Q8H PRN PRN PRN Reason: Pain Score 1-3/10 Last Admin: 03/15/20 12:48 Dose: 1,000 mg Documented by: Bisacodyl (Dulcolax) 10 mg RECTAL UD PRN PRN Reason: If no BM Dibucaine (Dibucaine) 1 applic TOPICAL TID PRN PRN; Protocol PRN Reason: Discomfort Hydrocortisone (Hytone) 1 applic TOPICAL TID PRN PRN; Protocol PRN Reason: Discomfort Methylergonovine Maleate (Methergine) 0.2 mg IM X1 PRN PRN Reason: Excess bleeding/uterine atony Naproxen (Naprosyn) 500 mg PO Q8H PRN PRN PRN Reason: Pain Score 1-3/10 Ondansetron HCl (Zofran) 4 mg IV Q4H PRN PRN PRN Reason: Nausea Oxycodone HCl (Oxyir) 5 - 10 mg PO Q4H PRN PRN PRN Reason: Pain Score 4-10/10 Senna/Docusate Sodium (Senokot-S, Sadie-Colace) 1 - 2 tablet PO DAILY PRN PRN PRN Reason: Constipation Simethicone (Mylicon) 80 mg PO PCHS PRN PRN Reason: Indigestion/Stomach pain Sodium Chloride () 5 - 15 ml IV UD PRN PRN Reason: SALINE FLUSH Medical Necessity - Tobacco Use Smoking Status: Never smoker Assessment/Plan All Active Problems (Last Reviewed 03/13/20 @ 15:16 by Aurelia Leal) False labor (Acute) Supervision of high-risk (Acute) Abnormal glucose tolerance affecting , antepartum (Acute) LGSIL on Pap smear of cervix (Acute) History of marijuana use (Acute) (Acute) Abdominal pain affecting (Resolved) Irregular menstrual cycle (Resolved) Leakage, amniotic fluid (Resolved) s/p PPD # 1 1. routine post delivery care 2. breast feeding- support given 3. rh positive 4. rubella immune
== END 2020-03-16 10:50 | disposition home or self-care (01) | DRG 560 ==
LOC: WP 07:45 → WPOUT 03-17 09:15
PROVIDERS: Admitting Provider Obstetrics & Gynecology; PCP Preventive Medicine Occupational Medicine; Referring Provider Obstetrics & Gynecology; Visit Provider Obstetrics & Gynecology
DX: O80 Encounter for full-term uncomplicated delivery (principal); O28.2 Abnormal cytological finding on antenatal screening of mother; Z37.0 Single live birth; Z3A.38 38 weeks gestation of pregnancy; Z11.59 Encounter for screening for other viral diseases; O47.1 False labor at or after 37 completed weeks of gestation; Z3A.39 39 weeks gestation of pregnancy
CPT/HCPCS: 59025; 59050; 85025; 86850; 86900; 86901; 87635; 99218; C9803; J7120; A4216; G0378; J2405; U0003

== ENCOUNTER → 2020-05-12 12:45 | Outpatient (CLI) | payer MEDICAID, SELFPAY ==
[2020-05-12 12:10] VITALS: BMI 23.6
[2020-05-19 04:39] LABS: HPV APTIMA, High Risk Negative (Negative)
== END ==
PROVIDERS: PCP Preventive Medicine Occupational Medicine; Referring Provider Obstetrics & Gynecology; Visit Provider Obstetrics & Gynecology
DX: R87.612 Low grade squamous intraepithelial lesion on cytologic smear of cervix (LGSIL) (principal)
CPT/HCPCS: 87624; 88175; G0145

== ENCOUNTER 2021-02-09 22:15 | Emergency (ER) | payer MEDICAID, SELFPAY ==
[2020-05-12 12:10] VITALS: BMI 23.6
[2021-02-09 22:16] VITALS: BP 106/69; PULSE 70; RESP 16; TEMP 36.6; O2SAT 97; BMI 22.6
[2021-02-09 22:46] LABS: Absolute Lymphocyte Count 1.88 X10^3/uL (0.83-4.51); Absolute Neutrophil Count 4.1 X10^3/uL (2.0-7.7); Basophil# 0.09 X10^3/uL; Basophil% 1.3 % (0-1); Eosinophil# 0.12 X10^3/uL; Eosinophils% 1.8 % (0-5); Hematocrit 41.8 % (37-47); Hemoglobin 13.8 g/dL (12.0-15.0); Lymphocyte # 1.88 X10^3/ul (0.83-4.51); Lymphocyte % 28.1 % (19-41); Mean Corpuscular Hgb 30.2 pg (27.0-32.0); Mean Corpuscular Volume 91.5 fL (81-99); Monocyte# 0.48 X10^3/uL; Monocyte% 7.2 % (0-10); NRBC Flagged by Analyzer 0 % (0-5); Neutrophil % 61.2 % (47-70); Platelet Count 245 K/mm3 (150-450); RBC Distribution Width CV 13.2 % (11.6-14.6); RBC Distribution Width SD 44.6 fl (35.1-43.9); Red Blood Count 4.57 M/mm3 (4.2-5.4); White Blood Count 6.7 K/mm3 (4.4-11.0)
[2021-02-09 22:55] LABS: Internal QC Validated? YES +Cl - CLEAR BKGD; Pregnancy, Serum, hCG Quali. NEGATIVE Negative
[2021-02-09 22:59] LABS: Anion Gap 4 (5-15); BUN 13 mg/dL (7-18); BUN/Creat Ratio 18.9 RATIO (10-20); Calcium,Total 9.4 mg/dL (8.5-10.1); Chloride 105 mmol/L (98-107); Creatinine, Serum 0.69 mg/dL (0.55-1.02); EST Glomerular Filtration Rate 113 mL/min (>60); Est Glom Filt Rate - Afr Amer 136 mL/min (>60); Estimated Creatinine Clearance 110.43 ml/min; Glucose 89 mg/dL (74-106); Potassium 3.5 mmol/L (3.5-5.1); Sodium Level 139 mmol/L (136-145)
--- NOTE | 2021-02-09 23:27 | EDS_ITS ---
HPI HPI - GI History of Present Illness Chief Complaint: Abd Pain Detail of Chief Complaint: Left lower quadrant abdominal pain. Informant: patient Abdominal Pain/Flank Pain Onset: Days Context: Gradual Onset Timing: Intermittent Quality: Aching and Cramping Current Severity: Mild Maximum Severity: Mild Nausea/Vomiting/Emesis GI Symptom: Negative for Nausea and Vomiting Diarrhea/Melena/Hematochezia GI Symptom: Negative for Diarrhea, Melena and Hematochezia Associated Symptoms Associated Symptoms: Negative for Dysuria, Frequency and Hematuria Narrative Narrative: 20-year-old female no significant past medical history. No prior abdominal nor pelvic surgery. A week ago she had an incident of left lower quadrant pain and since resolved and then began again yesterday. Says it is sharp. Intermittent. She denies any nausea, vomiting, diarrhea or fever. She denies any hematuria or dysuria. Last menstrual period was January 27. She denies any significant vaginal bleeding or heavy discharge. She denies any fever or c hills. She denies any abdominal trauma. Prior similar symptoms: No Recent Illness/Hospitalization: No PFSH PFSH Medical History Anxiety and depression no medical history Home Medications norethindrone (contraceptive) 0.35 mg tablet 0.35 mg PO DAILY #84 tab 05/12/20 [Rx Last Taken Unknown] Allergy/AdvReac Type Severity Reaction Status Date / Time amoxicillin Allergy Mild Rash Verified 05/12/20 12:11 penicillin G Allergy Mild Rash Verified 05/12/20 12:11 Penicillins [PCN] AdvReac Rash Verified 05/12/20 12:11 Family History Mother Arthritis Fibromyalgia Father Epilepsy Surgical History H/O breast surgery Social History Smoking Status: Never smoker alcohol intake: never substance use type: does not use caffeine: Yes what type of physical activity do you participate in: walking frequency: 1-2 times per week seatbelt use: always do you feel safe at home: Yes additional social history: BF- Gordon (Works at [employer]) 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 Review of Systems ROS Unobtainable: Denies due to encephalopathy Constitutional Constitutional ED: Denies fever(s) ENT ENT ED: Denies ear pain Cardiovascular Cardiovascular: Denies chest pain Respiratory/Chest Respiratory/Chest: Denies dyspnea Gastrointestinal Gastrointestinal: Reports abdominal pain; Denies constipation, diarrhea, melena, nausea or vomiting Genitourinary Genitourinary ED: Denies dysuria or hematuria Musculoskeletal Musculoskeletal: Denies myalgias Integumentary Denies rash Neurologic Neurologic: Denies headache(s) Psychiatric Psychiatric: Denies depression Endocrine Endocrinology: Denies polyuria Hematologic/Lymphatic Hematologic/Lymphatic: Denies easy bruising Allergic/Immunologic Allergic/Immunologic ED: Denies urticaria EXAM Physical Exam Narrative Exam Narrative: Young female no acute distress. Vital signs stable afebrile. H EENT exam unremarkable. Lungs are clear. Heart regular rhythm. Abdomen soft. Nondistended. Normal bowel sounds no peritoneal signs. Very minimal left lower quadrant tenderness. No rebound guarding rigidity. No hernia or mass. Right upper right lower quadrants are unremarkable. Moving all 4 extremities. Back nontender. Neurologically awake alert. Very benign exam. Const Vital Signs: 02/09/21 22:16 Temperature 97.9 F Temperature Source Temporal Pulse Rate 70 Respiratory Rate 16 Blood Pressure 106/69 Blood Pressure Mean 81 Pulse Ox 97 Oxygen Delivery Method Room Air Positive well nourished and well developed; Negative for unkempt General Appearance ED: well developed and NAD; Negative for unkempt or pallor HEENT Reports moist mucous membranes normocephalic and atraumatic Eyes PERRL and EOMs intact bilaterally Neck no lymphadenopathy, supple and no JVD General: Negative for tenderness Resp normal respiratory effort and clear to auscultation bilaterally Auscultation: Negative for rales, rhonchi or wheezes Cardio regular rate, regular rhythm, S1 normal heart sound, S2 normal heart sound and no murmurs GI non-distended and no masses; Negative for non-tender GI Narrative: Patient with a very benign abdomen with mild left lower quadrant tenderness. Right lower quadrant completely nontender. Inspection: Negative for abdominal distention Auscultation: normoactive bowel sounds Palpation: soft and tender; Negative for guarding, rigid or rebound tenderness present Back/Spine no CVA tenderness Extremity full ROM General Extremety ED: Negative for edema or tenderness General Extremity: Negative for edema Neuro Sensorium / Orientation: alert, oriented to person, oriented to place, oriented to time and orientation impaired Motor Exam: strength 5/5 throughout Psych mental status grossly normal Appearance: Negative for unkempt Skin no wounds General Skin Exam: Negative for jaundice or pallor Lesions: no lesions Rashes: no rashes MDM MDM MDM Narrative Medical decision making narrative: Young female left lower quadrant abdominal pain. Benign exam. Repeat exam at 12:24 AM patient doing well. Abdomen benign. She sees Dr. Devora Olsen of [facility]. She will follow up with her as an outpatient for possible pelvic exam and/or possible pelvic ultrasound if not improving.. She does not need emergent imaging tonight. She will be treated as a UTI. Urine culture will be sent. She will be placed on Bactrim twice daily for 5 days. First dose given in ER. Lab Data Attestation: I reviewed the patient's lab results. Lab results narrative: CBC White count of 6. Hemoglobin 13. Electrolytes unremarkable gap of 4. Normal creatinine. Serum test negative. Urinalysis shows 10-25 white cells. No operative cells. No nitrites and 1+ bacteria. A culture will be sent. She will be treated as a UTI. Labs: Laboratory Results - last 24 hr 02/09/21 02/09/21 02/09/21 22:40 22:40 22:40 WBC 6.7 RBC 4.57 Hgb 13.8 Hct 41.8 MCV 91.5 MCH 30.2 MCHC 33.0 RDW Std Deviation 44.6 H RDW Coeff of Daryl 13.2 Plt Count 245 MPV 11.0 Immature Gran % (Auto) 0.400 Neut % (Auto) 61.2 Lymph % (Auto) 28.1 Bath % (Auto) 7.2 Eos % (Auto) 1.8 Baso % (Auto) 1.3 H Absolute Neuts (auto) 4.1 Absolute Lymphs (auto) 1.88 Nucleated RBC % 0 Sodium 139 Potassium 3.5 Chloride 105 Carbon Dioxide 30.0 Anion Gap 4 L BUN 13 Creatinine 0.69 Estim Creat Clear Calc 110.43 Est GFR (MDRD) Af Amer 136 Est GFR (MDRD) Non-Af 113 BUN/Creatinine Ratio 18.9 Glucose 89 Calcium 9.4 Serum , Qual NEGATIVE Urine Color Urine Clarity Urine pH Ur Specific [place] Urine Protein Urine Glucose (UA) Urine Ketones Urine Occult Blood Urine Nitrite Urine Bilirubin Urine Urobilinogen Ur Leukocyte Esterase Urine RBC Urine WBC Ur Squamous Epith Cells Urine Bacteria Urine Mucus 02/09/21 23:52 WBC RBC Hgb Hct MCV MCH MCHC RDW Std Deviation RDW Coeff of Daryl Plt Count MPV Immature Gran % (Auto) Neut % (Auto) Lymph % (Auto) Bath % (Auto) Eos % (Auto) Baso % (Auto) Absolute Neuts (auto) Absolute Lymphs (auto) Nucleated RBC % Sodium Potassium Chloride Carbon Dioxide Anion Gap BUN Creatinine Estim Creat Clear Calc Est GFR (MDRD) Af Amer Est GFR (MDRD) Non-Af BUN/Creatinine Ratio Glucose Calcium Serum , Qual Urine Color Yellow Urine Clarity Clear Urine pH 6.5 Ur Specific [place] 1.020 Urine Protein Negative Urine Glucose (UA) Normal Urine Ketones Negative Urine Occult Blood Negative Urine Nitrite Negative Urine Bilirubin Negative Urine Urobilinogen Normal Ur Leukocyte Esterase 500 H Urine RBC 0 SEEN Urine WBC 10-25 SEEN Ur Squamous Epith Cells 0-5 SEEN Urine Bacteria 1+ Urine Mucus 0 SEEN Discharge Plan Triage Chief Complaint: Abd Pain ED Provider: Daniel Vanessa Dx/Rx/DC Orders Prescriptions: No Action norethindrone (contraceptive) 0.35 mg tablet 0.35 mg PO DAILY Qty: 84 RF: 4 Primary Care Provider: Jose Kwon
[2021-02-09 23:58] LABS: Mucous, Urine 0 SEEN /hpf (<or=2+); Red Blood Cells-Urine 0 SEEN /hpf (0-5)
[2021-02-10 00:02] LABS: Color, Urine Yellow (Yellow); Glucose, Dipstick Normal (Normal); Ketone-Dipstick Negative (Negative); Leukocyte Esterase-Dipstick 500 /ul (Negative); Nitrite-Dipstick Negative (Negative); Occult Blood-Urine Negative /ul (Negative); Protein-Dipstick Negative (Negative); Urine Bilirubin Dipstick Negative (Negative); Urine Clarity Clear (Clear); Urine Urobilinogen Normal (Normal); Urine pH 6.5 (5.0 - 8.0)
[2021-02-10 00:28] LABS: Bacteria 1+ /hpf (None Seen); Squamous Epithelial Cells - UA 0-5 SEEN /hpf (5-10); White Blood Cells 10-25 SEEN /hpf (0-5)
[2021-02-10] MEDS: Smz/Tmp Ds Tablet 1 TABLET PO (00:42)
[2021-02-10 00:47] VITALS: RESP 14
[2021-02-10 00:49] VITALS: RESP 14
== END 2021-02-10 00:49 | disposition home or self-care (01) ==
PROVIDERS: Emergency Provider Emergency Medicine; PCP Preventive Medicine Occupational Medicine
DX: R10.32 Left lower quadrant pain (principal); Z79.899 Other long term (current) drug therapy
CPT/HCPCS: 80048; 81001; 84703; 85025; 87086; 87088; 99284; A4216

== ENCOUNTER → 2022-03-23 | Outpatient (CLI) | payer MEDICAID, SELFPAY ==
[2022-03-23 12:31] LABS: Amphetamine Urine VISTA NEGATIVE (<1000 ng/mL); Barbiturate Urine VISTA NEGATIVE (< 200 ng/mL); Benzodiazepine Urine VISTA NEGATIVE (< 200 ng/mL); Cocaine Urine VISTA NEGATIVE (< 300 ng/mL); Ecstacy Urine VISTA NEGATIVE (< 500 ng/mL); Methadone Urine VISTA NEGATIVE (< 300 ng/mL); PCP Urine VISTA NEGATIVE (< 25 ng/mL); THC Urine VISTA NEGATIVE (< 50 ng/mL); Vista UDS pH Range 7
[2022-03-24 22:07] LABS: Chlamydia By Nucleic Acid AMP Negative (Negative)
[2022-03-25 08:26] LABS: Gonococcus By Nucleic Acid AMP Negative (Negative)
== END | disposition home or self-care (01) ==
LOC: LABSPEC 12:06
PROVIDERS: PCP Preventive Medicine Occupational Medicine; Visit Provider Obstetrics & Gynecology
DX: O09.90 Supervision of high risk pregnancy, unspecified, unspecified trimester (principal); Z3A.00 Weeks of gestation of pregnancy not specified
CPT/HCPCS: 80307; 87086; 87088; 87491; 87591

== ENCOUNTER → 2022-03-31 | Outpatient (CLI) | payer MEDICAID, SELFPAY ==
[2022-03-31 14:38] LABS: Absolute Lymphocyte Count 1.31 X10^3/uL (0.83-4.51); Absolute Neutrophil Count 7.9 X10^3/uL (2.0-7.7); Basophil# 0.06 X10^3/uL; Basophil% 0.6 % (0-1); Eosinophil# 0.04 X10^3/uL; Eosinophils% 0.4 % (0-5); Hematocrit 39.8 % (37-47); Hemoglobin 13.3 g/dL (12.0-15.0); Lymphocyte # 1.31 X10^3/ul (0.83-4.51); Lymphocyte % 13.2 % (19-41); Mean Corp Hgb Conc 33.4 g/dL (32-36); Mean Corpuscular Hgb 30.6 pg (27.0-32.0); Mean Corpuscular Volume 91.5 fL (81-99); Mean Platelet Vol. 10.7 fl (6.2-12.0); Monocyte# 0.63 X10^3/uL; Monocyte% 6.3 % (0-10); NRBC Flagged by Analyzer 0 % (0-5); Neutrophil # 7.87 X10^3/uL (2.7-7.7); Neutrophil % 79.1 % (47-70); Platelet Count 244 K/mm3 (150-450); RBC Distribution Width CV 13.7 % (11.6-14.6); RBC Distribution Width SD 46.6 fl (35.1-43.9); Red Blood Count 4.35 M/mm3 (4.2-5.4)
[2022-03-31 15:26] LABS: NATERA MAILED SPECIMEN
[2022-03-31 15:43] LABS: HIV - WCH Non-Reactive (Nonreactive); Hepatitis B Surface Antigen Non-Reactive (Nonreactive); Hepatitis C Antibody Non-Reactive (Nonreactive); Rubella IgG Reactive (Nonreactive); Syphilis Antibodies Non-reactive
== END | disposition home or self-care (01) ==
LOC: PAVLAB 13:58
PROVIDERS: PCP Preventive Medicine Occupational Medicine; Referring Provider Obstetrics & Gynecology; Visit Provider Obstetrics & Gynecology
DX: O09.90 Supervision of high risk pregnancy, unspecified, unspecified trimester (principal); Z3A.00 Weeks of gestation of pregnancy not specified
CPT/HCPCS: 36415; 85025; 86703; 86762; 86780; 86803; 86850; 86900; 86901; 87340

== ENCOUNTER 2022-07-02 21:40 | Outpatient (CLI) | payer MEDICAID, SELFPAY ==
[2022-07-02 21:54] VITALS: BP 120/68; PULSE 96; TEMP 36.4; O2SAT 98
[2022-07-02 21:55] VITALS: BMI 24.0
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
== END 2022-07-02 22:04 | disposition home or self-care (01) ==
LOC: WPOUT 21:44 → WP 21:45
PROVIDERS: PCP Preventive Medicine Occupational Medicine; Visit Provider Registered Nurse
DX: O36.8120 Decreased fetal movements, second trimester, not applicable or unspecified (principal); O99.342 Other mental disorders complicating pregnancy, second trimester; F43.10 Post-traumatic stress disorder, unspecified; Z3A.24 24 weeks gestation of pregnancy
CPT/HCPCS: 99218; G0378

== ENCOUNTER → 2022-07-08 | Outpatient (CLI) | payer MEDICAID, SELFPAY ==
[2022-07-12 03:06] LABS: Chlamydia By Nucleic Acid AMP Negative (Negative)
[2022-07-12 12:44] LABS: Gonococcus By Nucleic Acid AMP Negative (Negative)
== END | disposition home or self-care (01) ==
LOC: LABSPEC 12:29
PROVIDERS: PCP Preventive Medicine Occupational Medicine; Referring Provider Obstetrics & Gynecology; Visit Provider Obstetrics & Gynecology
DX: N89.8 Other specified noninflammatory disorders of vagina (principal)
CPT/HCPCS: 87491; 87591

== ENCOUNTER → 2022-07-12 | Outpatient (CLI) | payer MEDICAID, SELFPAY ==
--- NOTE | 2022-07-12 14:30 | US_ITS ---
INDICATION: well being EXAMINATION: Ultrasound US OB Limited 1 Or More Fetus TECHNIQUE: transabdominal pelvic ultrasound was performed. Grayscale, spectral waveform, and color flow Doppler evaluation of the adnexa. COMPARISON: None. LMP: 01/17/2022 Beta-hCG: Unknown. Provided EGA: 25 weeks 1 day FINDINGS: INTRAUTERINE GESTATION(s): Single. HEART MOTION is 133 bpm. AMNIOTIC FLUID VOLUME: Qualitatively normal, largest fluid pocket 2.9 x 8.3 cm BIOPHYSICAL PROFILE (BPP): Not assessed. PRESENTATION: Cephalic PLACENTA: Anterior. There is no placenta previa or abruption. CERVIX: The cervix is closed. 4.0 cm cervical length. US/OB Limited (No Biometrics) IMPRESSION: Single live intrauterine . No acute abnormality. Electronically Signed: Tanner Mack MD at 15:47 EST ,
== END | disposition home or self-care (01) ==
LOC: US 14:43
PROVIDERS: PCP Preventive Medicine Occupational Medicine; Visit Provider Obstetrics & Gynecology
DX: O09.92 Supervision of high risk pregnancy, unspecified, second trimester (principal); Z3A.25 25 weeks gestation of pregnancy
CPT/HCPCS: 76815

== ENCOUNTER 2022-07-13 15:30 | Outpatient (CLI) | payer MEDICAID, SELFPAY ==
[2022-07-13 15:56] VITALS: BP 112/57; PULSE 93; TEMP 36.6
[2022-07-13 16:07] VITALS: BMI 25.7
[2022-07-13 16:51] LABS: Color, Urine Yellow (Yellow); Glucose, Dipstick Normal (Normal); Ketone-Dipstick Negative (Negative); Leukocyte Esterase-Dipstick 500 /ul (Negative); Nitrite-Dipstick Negative (Negative); Occult Blood-Urine Negative /ul (Negative); Protein-Dipstick Negative (Negative); Urine Bilirubin Dipstick Negative (Negative); Urine Clarity Sl. Cloudy (Clear); Urine Urobilinogen Normal (Normal)
[2022-07-13] MEDS: FLUCONAZOLE 150 MG TABLET PO (17:00)
--- NOTE | 2022-07-13 17:09 | OB.TRI.HP_ITS ---
HPI - General HPI Narrative DARRYL BUI, is a 22 y/o @ 25 weeks 2 day who presents to L&D triage for the complaint of spotting and cramping. She has a known yeast infection x 1 week and has not started the medication yet. 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 Maternal Data Information BERNADETTE Calculator Estimated Delivery Date Method Current WG Current Estimate 10/24/22 LMP (Certain) 25w 2d Other Estimates 10/20/22 Ultrasound #1 25w 6d PFSH PFSH Medical History Abnormal glucose tolerance affecting , antepartum Anxiety and depression Cystitis Depression Family history of hemophilia History of suicidal ideation Pelvic pain Supervision of high-risk UTI (urinary tract infection) Home Medications multivitamin no.47-iron fum 27 mg-folate no.1 1 mg-dha 300 mg capsule (PNV-DHA) 1 cap PO DAILY 03/19/22 [History Last Taken 07/02/22 08:00] prochlorperazine maleate 10 mg tablet (Compazine) 10 mg PO Q8H PRN nausea and vomiting #90 tabs 04/16/22 [Rx Last Taken Unknown] terconazole 80 mg vaginal suppository 1 supp vaginal QHS 3 days #3 ea 07/08/22 [Rx Last Taken Unknown] Allergy/AdvReac Type Severity Reaction Status Date / Time gluten Allergy Severe Abd Verified 07/13/22 16:08 cramps/diarrhea amoxicillin Allergy Mild Rash Verified 07/13/22 16:08 penicillin G Allergy Mild Rash Verified 07/13/22 16:08 Penicillins [PCN] AdvReac Rash Verified 07/13/22 16:08 Family History Mother Arthritis Fibromyalgia Father Epilepsy Surgical History H/O breast surgery Social History adopted: No household members: children number of children: 1 current occupational status: employed 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 current occupational exposures/hazards: No pets and animals: No history of recent travel: No sexually active: Yes Smoking Status: Never smoker alcohol intake: never substance use type: does not use diet: gluten free well-balanced diet: daily or most days caffeine: Yes Type: carbonated beverages Number of servings: 1 and coffee eating out: 1-3 times/week during the past year weight has: remained stable what type of physical activity do you participate in: walking frequency: daily kyra/pentecostal: Zoroastrian seatbelt use: always do you feel safe at home: Yes additional social history: Father- Jose (Ex) History 3 Elective abortions Hx Para 1 Spontaneous abortions 1 Hx # Term Pregnancies 1 Ectopic pregnancies Hx # Pregnancies Multiple births # of living children 1 Past Pregnancies Del. Date Name GA/Weeks Outcome Route Bth Weight Gen Labor Lgth Anesthesia Del Locatn Provider FOB Unknown 2017 miscarriage spontaneous 03/15/20 [place] [facility] live - full term Female epidu ral [facility] Delivery Date: 03/15/20 Last Updated by: Shital Loving no complications Visit Details Expected Delivery Route/Plan Labor Preferences- CB/BF classes: [] labor support person: sister or mom- FOB not involved labor intervention preferences: [] pain management options preferred: [] cut cord/dad catch: [] : [] PP control planned: [] discussed possible routes of delivery and associated risks: [] special requests: [] Plans Covid status: discussed Flu vaccine: discussed Tdap vaccine: [] Rhogam: [] LARC form signed: [] Problem list reviewed and updated with the most current plan of care details and appropriate orders placed. Relevant counseling for the gestational age provided. Continue routine care and follow up unless otherwise noted in visit notes/problem list details OB Flowsheet Initial Weight: Not Recorded Date -?-?-?-?-?-?-?-?-?-?-?-?- EGA Weight BP Urine Prot -?-?-?-?-?-?-?-?-?-?-?-?- Glucose FHR FuHt Pres Dilation -?-?-?-?-?--?-?-?-?-?-?-?- Effaced St Visit Note 03/23/22 -?-?-?-?-?-?-?-?-?-?-?-?- 9w 2d 130 lb 2 oz 123/77 -?-?-?-?-?-?-?-?-?-?-?-?- 178 -?-?-?-?-?-?-?-?-?-?-?-?- JV- CRL consiste nt with LMP. 04/16/22 -?-?-?-?-?-?-?-?-?-?-?-?- 12w 5d 129 lb 97/67 -?-?-?-?-?-?-?-?-?-?-?-?- 155 -?-?-?-?-?-?-?-?-?-?-?-?- SM- no vb lof cr amping 05/14/22 -?-?-?-?-?-?-?-?-?-?-?-?- 16w 5d 134 lb 112/68 Negative -?-?-?-?-?-?-?-?-?-?-?-?- Negative 150 -?-?-?-?-?-?-?-?-?-?-?-?- JV- no complaint s today other than financial difficulties due to having to call off work for her baby's RSV this week. has anatomy scan scheduled. 06/09/22 -?-?-?-?-?-?-?-?-?-?-?-?- 20w 3d 140 lb 8 oz 97/53 Nega tive -?-?-?-?-?-?-?-?-?-?-?-?- Negative 147 -?-?-?-?-?-?-?-?-?-?-?-?- LC- no vb/crampi ng. normal anatomy scan. no concerns. 07/08/22 -?-?-?-?-?-?--?-?-?-?-?-?- 24w 4d 149 lb 8 oz 113/70 Nega tive -?-?-?-?-?-?-?-?-?-?-?-?- Negative 153 -?-?-?-?-?-?-?-?-?-?-?-?- JV- pt complains of vaginal discharge and odor. cultures collected and pt has obvious yeast on exam. ROS Constitutional Constitutional: Reports systems reviewed and no addt'l complaints, except as documented Gastrointestinal Gastrointestinal: Denies bloating, constipation, cramping, diarrhea, nausea or vomiting Genitourinary Genitourinary: Reports other Details: Denies vaginal odor, vaginal bleeding, or vaginal discharge ; Denies difficulty urinating or flank pain Physical Exam HEENT normocephalic Resp normal respiratory effort and normal air movement no CVA tenderness Amniotic Fluid: other Thick vaginal discharge present on the vaginal ratliff consistent with a moderate to severe yeast infection. cervix is closed Extremity normal to inspection General Extremity: edema bilateral (trace ) NST FHR Rate Baby A Baseline: 130 Variability:: Moderate Accelerations:: 15 x 15 Decelerations:: None NST Reactive:: Yes FHR Category:: Category I Uterine Activity:: no contractions Assessment & Plan (1) Vaginal yeast infection: (2) Supervision of high risk , antepartum: COMMENT: PRR , BERNADETTE 10/24/22, girl [facility](Ex) PLAN: Plan giving diflucan 150 mg now and rest from work x 3 days. pt to also start the vaginal cream medication that was sent to pharmacy and drink plenty of water call if cramping worsens or bleeding returns. no blood on exam today . Charges/Coding Multi Select Codes Visit Charges Office Visit/Consults: [id number] OV L3 Est Urinary/Genital Urinary/Genital CPT Codes: 91011-17 non-stress test Interp
== END 2022-07-13 17:20 | disposition home or self-care (01) ==
LOC: WPOUT 15:42 → WP 15:42
PROVIDERS: PCP Preventive Medicine Occupational Medicine; Visit Provider Obstetrics & Gynecology
DX: O23.592 Infection of other part of genital tract in pregnancy, second trimester (principal); B37.31 Acute candidiasis of vulva and vagina; O09.92 Supervision of high risk pregnancy, unspecified, second trimester; Z3A.25 25 weeks gestation of pregnancy
CPT/HCPCS: 59025; 59050; 81002; 87086; 87088; 99221; G0378

== ENCOUNTER 2022-08-10 16:20 | Outpatient (CLI) | payer MEDICAID, SELFPAY ==
[2022-08-10 16:37] VITALS: BP 113/80; PULSE 96; TEMP 36.9
[2022-08-10 16:58] VITALS: BMI 27.7
[2022-08-10 18:24] VITALS: BP 118/66; PULSE 76; TEMP 36.1
[2022-08-10] MEDS: Acetaminophen 500 MG Tablet 1000 MG PO (18:26)
[2022-08-10] MEDS: Lactated Ringers 1,000 ML 999 ML IV ×2 (18:28→20:20)
[2022-08-10 19:26] VITALS: BP 103/65; PULSE 76; PULSE 78; TEMP 37.3; O2SAT 99
--- NOTE | 2022-08-10 20:08 | NURSING ---
Notified Dr. Santos that patient rates cramping at 6/10. They are intermittent and near her pubic bone. She is nausous when they come one. States, I have had a visitor to talk to here, so I haven't paid much attention to them lately. OB would like a vag exam at this time.
[2022-08-10 20:20] LABS: Color, Urine Yellow (Yellow); Glucose, Dipstick Normal (Normal); Ketone-Dipstick Negative (Negative); Leukocyte Esterase-Dipstick 100 /ul (Negative); Nitrite-Dipstick Negative (Negative); Occult Blood-Urine Negative /ul (Negative); Protein-Dipstick Negative (Negative); Urine Bilirubin Dipstick Negative (Negative); Urine Clarity Clear (Clear); Urine Urobilinogen Normal (Normal)
[2022-08-10 20:21] LABS: Mucous, Urine 0 SEEN /hpf (<or=2+); Red Blood Cells-Urine 0 SEEN /hpf (0-5)
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
[2022-08-10 20:34] LABS: Bacteria 1+ /hpf (None Seen); Squamous Epithelial Cells - UA 5-10 SEEN /hpf (5-10); White Blood Cells 0-5 SEEN /hpf (0-5)
[2022-08-10] MEDS: Nitrofurantoin Macrocrystals 100 MG Capsule PO (20:49)
== END 2022-08-10 21:39 | disposition home or self-care (01) ==
LOC: WPOUT 16:28 → WP 16:29
PROVIDERS: PCP Preventive Medicine Occupational Medicine; Visit Provider Obstetrics & Gynecology
DX: O98.513 Other viral diseases complicating pregnancy, third trimester (principal); U07.1 COVID-19; O99.343 Other mental disorders complicating pregnancy, third trimester; O99.613 Diseases of the digestive system complicating pregnancy, third trimester; F43.10 Post-traumatic stress disorder, unspecified; Z3A.29 29 weeks gestation of pregnancy; K90.0 Celiac disease
CPT/HCPCS: 96360; 96361; 59025; 59050; 81001; 99221; J7120; G0378

== ENCOUNTER 2022-08-12 18:17 | Emergency (ER) | payer MEDICAID, SELFPAY ==
[2022-08-12 18:17] VITALS: BP 93/74; PULSE 133; RESP 18; TEMP 36; O2SAT 98; BMI 28.0
--- NOTE | 2022-08-12 18:35 | ED.RN ---
THIS RN IN ROOM. PT FEELS DIZZY AND LIGHTHEADED. PT HEART RATE 142. IV INITIATED. THIS IV [place] PT. PLACES HEAD LOW. PT HEART RATE NOW AT 103. DR TRACY
[2022-08-12 18:39] VITALS: BP 94/52; PULSE 102; RESP 18; O2SAT 100
[2022-08-12] MEDS: 0.9% Normal Saline 1,000 ML 999 ML IV ×2 (18:39→19:23)
[2022-08-12 18:52] VITALS: BP 97/61; PULSE 94; RESP 18; O2SAT 100
--- NOTE | 2022-08-12 18:53 | EKG12_ITS ---
Test Reason : DYSRHYTHMIA Blood Pressure : / mmHG Vent. Rate : 090 BPM Atrial Rate : 090 BPM P-R Int : 152 ms QRS Dur : 086 ms QT Int : 368 ms P-R-T Axes : 062 070 -06 degrees QTc Int : 450 ms Normal sinus rhythm T wave abnormality, consider anterior ischemia Abnormal ECG Confirmed by LILIANE SIDHU, WILFRED ([id number]), newspaper editor ROSS CAN ([id number]) on 08/13/2022 9:59:19 AM Referred By: BB Confirmed By:WILFRED MOMIN MD
[2022-08-12] MEDS: Ondansetron 4 MG/2 ML Vial IV (19:02)
--- NOTE | 2022-08-12 19:19 | EX.ED.DYSGE1 ---
HPI History of Present Illness Chief Complaint: Fatigue Informant: patient Narrative Narrative: Healthy 22-year-old about 29 weeks , started having vomiting and diarrhea when she got up this morning, multiple episodes today, feeling malaise, low-grade fevers in the 99.7 range, no abdominal pain, she went to urgent care because she did not feel well enough to go to work and was looking for a work note. They said that her heart rate was 140 and referred her here to the ER where apparently her heart rate was similar. Asymptomatic from that, no near syncope or syncope today, no palpitations, chest discomfort, dyspnea. Prior to my evaluation, nursing reports that they laid her back in a near Trendelenburg type position because she felt lightheaded at the time, and upon doing this, her heart rate suddenly decreased to about 118 and her dizziness resolved. [facility] Medical History Abnormal glucose tolerance affecting , antepartum Anxiety and depression Cystitis Depression Family history of hemophilia History of suicidal ideation Pelvic pain Supervision of high-risk UTI (urinary tract infection) Home Medications multivitamin no.47-iron fum 27 mg-folate no.1 1 mg-dha 300 mg capsule (PNV-DHA) 1 cap PO DAILY 03/19/22 [History Last Taken 08/10/22 08:00 1 tab] prochlorperazine maleate 10 mg tablet (Compazine) 10 mg PO Q8H PRN nausea and vomiting #90 tabs 04/16/22 [Rx Last Taken Unknown] terconazole 80 mg vaginal suppository 1 supp vaginal QHS 3 days #3 ea 07/08/22 [Rx Last Taken Unknown] aspirin 81 mg tablet 81 mg PO DAILY covid positive 7 days ago 08/10/22 [History Last Taken 08/10/22 08:00 81 mg] nitrofurantoin monohydrate/macrocrystals 100 mg capsule (Macrobid) 100 mg PO BID 7 days #14 caps 08/10/22 [Rx Last Taken Unknown] ondansetron 4 mg disintegrating tablet 8 mg PO Q8H PRN PRN Nausea #20 tabs 08/12/22 [Rx Last Taken Unknown] potassium chloride 20 mEq tablet,extended release 20 meq PO BID #6 tabs 08/12/22 [Rx Last Taken Unknown] Allergy/AdvReac Type Severity Reaction Status Date / Time gluten Allergy Severe Abd Verified 08/10/22 17:01 cramps/diarrhea amoxicillin Allergy Mild Rash Verified 08/10/22 17:01 penicillin G Allergy Mild Rash Verified 08/10/22 17:01 pomegranate Allergy Anaphylaxis Verified 08/10/22 17:01 Penicillins [PCN] AdvReac Rash Verified 08/10/22 17:01 Family History Mother Arthritis Fibromyalgia Father Epilepsy Surgical History H/O breast surgery Social History adopted: No household members: children number of children: 1 current occupational status: employed 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 current occupational exposures/hazards: No pets and animals: No history of recent travel: No sexually active: Yes Smoking Status: Never smoker alcohol intake: never substance use type: does not use diet: gluten free well-balanced diet: daily or most days caffeine: Yes Type: carbonated beverages Number of servings: 1 and coffee eating out: 1-3 times/week during the past year weight has: remained stable what type of physical activity do you participate in: walking frequency: daily kyra/nondenominational: [employer] seatbelt use: always do you feel safe at home: Yes additional social history: Father- Jose (Ex) ROS ROS ED Constitutional Constitutional ED: Denies chills or fever(s) Eyes Eyes: Denies change in vision or diplopia ENT ENT ED: Denies rhinorrhea or sore throat Cardiovascular Cardiovascular: Reports lightheadedness; Denies chest pain, palpitations or syncope Respiratory/Chest Respiratory/Chest: Denies cough or dyspnea Gastrointestinal Gastrointestinal: Reports diarrhea, nausea and vomiting; Denies abdominal pain Genitourinary Genitourinary ED: Denies dysuria or hematuria Musculoskeletal Musculoskeletal: Denies back pain or neck pain Integumentary Denies abscess or rash Neurologic Neurologic: Denies headache(s), paresthesias or weakness Psychiatric Psychiatric: Denies anxiety or suicidal thoughts EXAM Physical Exam Const Vital Signs: 08/12/22 18:17 08/12/22 18:39 08/12/22 18:39 Temperature 96.8 F L Temperature Source Temporal Pulse Rate 133 H 102 H Respiratory Rate 18 18 Respiratory Effort Normal Non-Labored Respiratory Pattern Normal Blood Pressure 93/74 94/52 L Blood Pressure Mean 80 66 Pulse Ox 98 100 Oxygen Delivery Method Room Air Room Air 08/12/22 18:52 08/12/22 19:20 Temperature Temperature Source Pulse Rate 94 106 H Respiratory Rate 18 Respiratory Effort Respiratory Pattern Blood Pressure 97/61 92/51 L Blood Pressure Mean 73 64 Pulse Ox 100 100 Oxygen Delivery Method Room Air Room Air Positive well nourished and well developed Constitutional Narrative: Well-appearing, conversive in full sentences, no distress General Appearance ED: well developed and NAD HEENT Reports moist mucous membranes normocephalic and atraumatic Eyes PERRL and EOMs intact bilaterally Neck full ROM and supple Resp normal respiratory effort and clear to auscultation bilaterally Cardio regular rate, regular rhythm and no murmurs GI non-tender and non-distended GI Narrative: Gravid uterus above the umbilicus, nontender abdomen, soft, benign Auscultation: normoactive bowel sounds Palpation: soft Back/Spine no CVA tenderness General Back: other FROM Extremity normal to inspection General Extremety ED: Negative for edema, pulses abnormal or tenderness General Extremity: Negative for edema or pulses abnormal Neuro oriented x3, CN's II-XII intact bilaterally and no sensory deficits noted Sensorium / Orientation: awake and alert Motor Exam: strength 5/5 throughout Skin no rashes or lesions noted and no wounds MDM MDM MDM Narrative Medical decision making narrative: Rhythm strips appear to show either sinus tachycardia in the 140s versus ectopic atrial tachycardia or some other version of supraventricular tachycardia. There were no more revealing than that and the QRS complexes appeared to be narrow. I obtained the EKG after the patient was feeling better and had a lower heart rate, 90 on the EKG. Assessing electrolytes and ordered her some Zofran and 2 L of IV fluids. Patient is feeling much better on reevaluation. Her heart rate stayed below 100 on my reevaluation. She is tolerating oral fluids. Unknown if her symptoms were due to a dysrhythmia, or if she even had 1. However she certainly was abnormally tachycardic but not dangerously so. Her potassium is low at 3.0, I gave her some replacement and a prescription for a few more days worth, supportive care advised, I will prescribe her some Zofran as well just in case. If she has any persistent symptoms I recommend close outpatient follow-up. She felt the baby move throughout her stay here without any pain or cramping or vaginal bleeding/leakage. Lab Data Attestation: I reviewed the patient's lab results. Labs: Laboratory Results - last 24 hr 08/12/22 18:40 Sodium 138 Potassium 3.0 L Chloride 106 Carbon Dioxide 22.0 Anion Gap 10 BUN 7 Creatinine 0.45 L Estim Creat Clear Calc 159.46 Est GFR (MDRD) Af Amer 220 Est GFR (MDRD) Non-Af 182 BUN/Creatinine Ratio 15.6 Glucose 97 Calcium 8.4 L Rhythm Strip Rhythm Strip: Sinus Rhythm Rate: 98 Ectopy: None EKG Initial EKG: Attestation: I personally reviewed and interpreted this EKG as follows: Interpretation: Sinus Rhythm, No Acute Injury Pattern and Non-Specific ST Changes (Inferior and septal laterally) Prior: No Prior Discharge Plan Triage Chief Complaint: Fatigue ED Provider: Prasanth Villatoro Dx/Rx/DC Orders Clinical Impression: Vomiting, Acute hypokalemia, Tachycardia, Third trimester Instructions: ED Hypokalemia Prescriptions: New ondansetron [ondansetron] 4 mg tablet,disintegrating 8 mg PO Q8H PRN PRN (Reason: Nausea) Qty: 20 0RF potassium chloride 20 mEq tablet extended release 20 meq PO BID Qty: 6 0RF No Action PNV-DHA 27 mg iron-1 mg -300 mg capsule 1 cap PO DAILY prochlorperazine maleate [Compazine] 10 mg tablet 10 mg PO Q8H PRN (Reason: nausea and vomiting) Qty: 90 3RF terconazole 80 mg suppository 1 supp vaginal QHS 3 Days Qty: 3 1RF Low-Dose Aspirin 81 mg Tablet 81 mg PO DAILY nitrofurantoin monohyd/m-cryst [Macrobid] 100 mg capsule 100 mg PO BID 7 Days Qty: 14 0RF Rx Instructions: must administer with a meal/food Primary Care Provider: Jose Kwon Referrals: Jose Kwon DO [Primary Care Provider] - 1-2 Days if not improving Disposition Disposition: Home, Self Care
[2022-08-12 19:20] VITALS: BP 92/51; PULSE 106; O2SAT 100
[2022-08-12 19:28] LABS: Anion Gap 10 (5-15); BUN 7 mg/dL (7-18); BUN/Creat Ratio 15.6 RATIO (10-20); Calcium,Total 8.4 mg/dL (8.5-10.1); Chloride 106 mmol/L (98-107); Creatinine, Serum 0.45 mg/dL (0.55-1.02); EST Glomerular Filtration Rate 182 mL/min (>60); Est Glom Filt Rate - Afr Amer 220 mL/min (>60); Estimated Creatinine Clearance 159.46 ml/min; Glucose 97 mg/dL (74-106); Sodium Level 138 mmol/L (136-145)
[2022-08-12] MEDS: Potassium Chloride Oral Tablet 20 MEQ 40 MEQ PO (21:43)
== END 2022-08-12 21:47 | disposition home or self-care (01) ==
PROVIDERS: Emergency Provider Emergency Medicine; PCP Preventive Medicine Occupational Medicine; Visit Provider Emergency Medicine
DX: O21.2 Late vomiting of pregnancy (principal); O99.283 Endocrine, nutritional and metabolic diseases complicating pregnancy, third trimester; O99.891 Other specified diseases and conditions complicating pregnancy; E87.6 Hypokalemia; R00.0 Tachycardia, unspecified; Z3A.29 29 weeks gestation of pregnancy
CPT/HCPCS: 80048; 93005; 96374; 99285; J7030; A4216; J2405

== ENCOUNTER → 2022-08-16 | Outpatient (CLI) | payer MEDICAID, SELFPAY ==
[2022-08-16 14:17] LABS: Absolute Lymphocyte Count 1.15 X10^3/uL (0.83-4.51); Absolute Neutrophil Count 8.3 X10^3/uL (2.0-7.7); Basophil# 0.05 X10^3/uL; Basophil% 0.5 % (0-1); Eosinophil# 0.08 X10^3/uL; Eosinophils% 0.8 % (0-5); Hematocrit 35.5 % (37-47); Hemoglobin 11.8 g/dL (12.0-15.0); Lymphocyte # 1.15 X10^3/ul (0.83-4.51); Lymphocyte % 11.2 % (19-41); Mean Corp Hgb Conc 33.2 g/dL (32-36); Mean Corpuscular Hgb 30.7 pg (27.0-32.0); Mean Corpuscular Volume 92.4 fL (81-99); Mean Platelet Vol. 11.1 fl (6.2-12.0); Monocyte# 0.47 X10^3/uL; Monocyte% 4.6 % (0-10); NRBC Flagged by Analyzer 0 % (0-5); Neutrophil # 8.33 X10^3/uL (2.7-7.7); Neutrophil % 81.1 % (47-70); Platelet Count 203 K/mm3 (150-450); RBC Distribution Width CV 13.3 % (11.6-14.6); RBC Distribution Width SD 44.9 fl (35.1-43.9); Red Blood Count 3.84 M/mm3 (4.2-5.4); White Blood Count 10.3 K/mm3 (4.4-11.0)
[2022-08-16 15:05] LABS: Glucose Challenge Gest 1H 50g 113 mg/dL (70-140)
[2022-08-16 15:37] LABS: HIV - WCH Non-Reactive (Nonreactive); Syphilis Antibodies Non-reactive
== END | disposition home or self-care (01) ==
LOC: LAB 12:40
PROVIDERS: Obstetrics & Gynecology; PCP Preventive Medicine Occupational Medicine; Referring Provider Obstetrics & Gynecology; Visit Provider Obstetrics & Gynecology
DX: O09.90 Supervision of high risk pregnancy, unspecified, unspecified trimester (principal); Z3A.00 Weeks of gestation of pregnancy not specified
CPT/HCPCS: 36415; 82950; 85025; 86703; 86780

== ENCOUNTER → 2022-08-30 | Outpatient (CLI) | payer MEDICAID, SELFPAY ==
--- NOTE | 2022-08-30 11:36 | US_ITS ---
STUDY: SECOND AND THIRD TRIMESTER OBSTETRICAL ULTRASOUND - LIMITED REASON FOR EXAM: Female, 22 years old growth LMP: PRIOR ULTRASOUND: None. TECHNIQUE: Transabdominal TECHNICAL QUALITY: Adequate. FINDINGS: There is a single intrauterine fetus. The fetus is in a cephalic presentation. There is demonstrated cardiac activity with a heart rate of 129 bpm. There is a normal amniotic fluid volume. The largest amniotic fluid pocket measures 5.02 cm. The amniotic fluid index (JOSAFAT) is 16.22 cm. The placenta is anterior There are Grade 2 placental changes. The cervix measures 4.6 cm in length. BIOMETRY: BPD: 7.97 cm: 32 weeks, 0 days HC: 29.35 cm: 32 weeks, 3 days AC: 28.01 cm: 32 weeks, 0 days FL: 6.28 cm: 32 weeks, 4 days age by current US: 32 weeks, 1 days. BERNADETTE by current US: October 24, 2022. Estimated weight: 1943 grams, +/- 291 grams, 44 percentile. US/OB Limited With Biometrics IMPRESSION: Viable intrauterine gestation approximately 32 weeks gestational age No significant abnormality. Electronically Signed: Ren Barnes MD at 17:45 EST ,
== END | disposition home or self-care (01) ==
LOC: US 11:35
PROVIDERS: PCP Preventive Medicine Occupational Medicine; Referring Provider Obstetrics & Gynecology; Visit Provider Obstetrics & Gynecology
DX: O98.519 Other viral diseases complicating pregnancy, unspecified trimester (principal); U07.1 COVID-19
CPT/HCPCS: 76816

== ENCOUNTER 2022-09-01 15:35 | Outpatient (CLI) | payer MEDICAID, SELFPAY ==
[2022-09-01 15:42] VITALS: BMI 28.5
[2022-09-01 15:50] VITALS: PULSE 76; TEMP 36.9; O2SAT 98
[2022-09-01 15:51] VITALS: BP 109/61; PULSE 72
[2022-09-01 16:51] LABS: ROM Internal Control Test YES-OK TO RESULT pt. (Internal QC); ROM Patient Test Negative (Negative)
--- NOTE | 2022-09-01 17:56 | US_ITS ---
INDICATION: FHR DECEL -- Please obtain JOSAFAT EXAMINATION: Ultrasound US Biophysical Profile W/O Nonst TECHNIQUE: Transabdominal pelvic obstetrical ultrasound was performed, biophysical profile scoring. COMPARISON: Obstetric ultrasound from 08/30/2022 FINDINGS: INTRAUTERINE GESTATION(s): Single. ESTIMATED GESTATIONAL AGE: 32 weeks 3 days based on prior dating ESTIMATED DUE DATE (BERNADETTE): 10/24/2022 HEART MOTION is 131 bpm. AMNIOTIC FLUID INDEX (JOSAFAT): 17.44, largest pocket measuring 5.5 x 5.3 cm. BIOPHYSICAL PROFILE (BPP): 6/8 -- Breathin/2. -- Movement: 2/2. -- Tone: 2/2. --JOSAFAT: 2/2. PRESENTATION: Cephalic PLACENTA: Anterior grade 2 placenta with no previa. CERVIX: The cervix is closed. MATERNAL OVARIES: Not imaged. FREE FLUID: None. US/Biophysical Prof W/O Non Stres IMPRESSION: Single live intrauterine of 32 weeks 3 days with biophysical profile score of 6/8 (deductions for breathing movements). Electronically Signed: Raheem Amanda MD at 22:17 EST ,
[2022-09-01] MEDS: Lactated Ringers 1,000 ML 999 ML IV (18:24)
[2022-09-01] MEDS: Acetaminophen 500 MG Tablet 1000 MG PO (18:32)
[2022-09-01] MEDS: Ondansetron 4 MG/2 ML Vial IV (18:32)
[2022-09-01 18:40] VITALS: PULSE 71; O2SAT 100
[2022-09-01 19:14] VITALS: BP 109/65; PULSE 77
[2022-09-01 19:16] VITALS: PULSE 65; O2SAT 99
--- NOTE | 2022-09-01 22:35 | OB.TRI.HP_ITS ---
HPI - General HPI Narrative DARRYL BUI, is a 22 y/o @ 32 weeks 5 days who presents with possible srom and contractions. She is status post covid and still not 100% back to feeling better. She states that she tries to drink more fluids, but still unable to keep up. She has pain 7/10 with contractions. No vaginal bleeding or dec fm. Maternal Data Information BERNADETTE Calculator Estimated Delivery Date Method Current WG Current Estimate 10/24/22 LMP (Certain) 32w 5d Other Estimates 10/20/22 Ultrasound #1 33w 2d PFSH PFSH Medical History Abnormal glucose tolerance affecting , antepartum Anxiety and depression Cystitis Depression Family history of hemophilia History of suicidal ideation Pelvic pain Supervision of high-risk UTI (urinary tract infection) Home Medications multivitamin no.47-iron fum 27 mg-folate no.1 1 mg-dha 300 mg capsule (PNV-DHA) 1 cap PO DAILY 03/19/22 [History Last Taken 08/10/22 08:00 1 tab] prochlorperazine maleate 10 mg tablet (Compazine) 10 mg PO Q8H PRN nausea and vomiting #90 tabs 04/16/22 [Rx Last Taken Unknown] terconazole 80 mg vaginal suppository 1 supp vaginal QHS 3 days #3 ea 07/08/22 [Rx Last Taken Unknown] aspirin 81 mg tablet 81 mg PO DAILY covid positive this 08/10/22 [History Last Taken 08/10/22 08:00 81 mg] ondansetron 4 mg disintegrating tablet 8 mg PO Q8H PRN PRN Nausea #20 tabs 08/12/22 [Rx Last Taken Unknown] potassium chloride 20 mEq tablet,extended release 20 meq PO BID #6 tabs 08/12/22 [Rx Last Taken Unknown] Allergy/AdvReac Type Severity Reaction Status Date / Time gluten Allergy Severe Abd Verified 08/31/22 13:47 cramps/diarrhea amoxicillin Allergy Mild Rash Verified 08/31/22 13:47 penicillin G Allergy Mild Rash Verified 08/31/22 13:47 pomegranate Allergy Anaphylaxis Verified 08/31/22 13:47 Penicillins [PCN] AdvReac Rash Verified 08/31/22 13:47 Family History Mother Arthritis Fibromyalgia Father Epilepsy Surgical History H/O breast surgery Social History adopted: No household members: children number of children: 1 current occupational status: employed 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 current occupational exposures/hazards: No pets and animals: No history of recent travel: No sexually active: Yes Smoking Status: Never smoker alcohol intake: never substance use type: does not use diet: gluten free well-balanced diet: daily or most days caffeine: Yes Type: carbonated beverages Number of servings: 1 and coffee eating out: 1-3 times/week during the past year weight has: remained stable what type of physical activity do you participate in: walking frequency: daily kyra/restorationism: Anabaptism seatbelt use: always do you feel safe at home: Yes additional social history: Father- Jose (Ex) History 3 Elective abortions Hx Para 1 Spontaneous abortions 1 Hx # Term Pregnancies 1 Ectopic pregnancies Hx # Pregnancies Multiple births # of living children 1 Past Pregnancies Del. Date Name GA/Weeks Outcome Route Bth Weight Gen Labor Lgth Anes thesia Del Locn Provider FOB Unknown 2017 miscarriage spontaneous 03/15/20 [place] 39 live - full term Female epidu [facility] Delivery Date: 03/15/20 Last Updated by: Shital Loving no complications Visit Details Expected Delivery Route/Plan Labor Preferences- CB/BF classes: [] labor support person: sister or mom- FOB not involved labor intervention preferences: [] pain management options preferred: [] cut cord/dad catch: [] : [] PP control planned: [] discussed possible routes of delivery and associated risks: [] special requests: [] Plans Covid status: discussed Flu vaccine: discussed Tdap vaccine: [] Rhogam: [] LARC form signed: [] Problem list reviewed and updated with the most current plan of care details and appropriate orders placed. Relevant counseling for the gestational age provided. Continue routine care and follow up unless otherwise noted in visit notes/problem list details OB Flowsheet Initial Weight: Not Recorded Date -?-?-?-?-?-?-?-?-?-?-?-?- EGA Weight BP Urine Prot -?-?-?-?-?-?-?-?-?-?-?-?- Glucose FHR FuHt Pres Dilation -?-?-?-?-?-?-?-?-?-?-?-?- Effaced St Visit Note 03/23/22 -?-?-?-?-?-?-?-?-?-?-?-?- 9w 2d 130 lb 2 oz 123/77 -?-?-?-?-?-?-?-?-?-?-?-?- 178 -?-?-?-?-?-?-?-?-?-?-?-?- JV- CRL consiste nt with LMP. 04/16/22 -?-?-?-?-?-?-?-?-?-?-?-?- 12w 5d 129 lb 97/67 -?-?-?-?-?-?-?-?-?-?-?-?- 155 -?-?-?-?-?-?-?-?-?-?-?-?- SM- no vb lof cr amping 05/14/22 -?-?-?-?--?-?-?-?-?-?-?-?- 16w 5d 134 lb 112/68 Negative -?-?-?-?-?-?-?-?-?-?-?-?- Negative 150 -?-?-?-?-?-?-?-?-?-?-?-?- JV- no complaint s today other than financial difficulties due to having to call off work for her baby's RSV this week. has anatomy scan scheduled. 06/09/22 -?-?-?-?-?-?-?-?-?-?-?-?- 20w 3d 140 lb 8 oz 97/53 Nega tive -?-?-?-?-?-?-?-?-?-?-?-?- Negative 147 -?-?-?-?-?-?-?-?-?-?-?-?- LC- no vb/crampi ng. normal anatomy scan. no concerns. 07/08/22 -?-?-?-?-?-?-?-?-?-?-?-?- 24w 4d 149 lb 8 oz 113/70 Nega tive -?-?-?-?-?-?-?-?-?-?-?-?- Negative 153 -?-?-?-?-?-?-?-?-?-?-?-?- JV- pt complains of vaginal discharge and odor. cultures collected and pt has obvious yeast on exam. 08/16/22 -?-?-?-?-?-?-?-?-?-?-?-?- 30w 1d 155 lb 130/74 Negative -?-?-?-?-?-?-?-?-?-?-?-?- Negative 140 30 -?-?-?-?-?-?-?-?-?-?-?-?- SM- no vb crampi ng ctx no lof co pelvic pain 08/20/22 -?-?-?-?-?-?-?-?-?-?-?-?- 30w 5d 159 lb 4 oz 96/64 Nega tive -?-?-?-?-?-?-?-?-?-?-?-?- Negative 140 31 -?-?-?-?-?-?-?-?-?-?-?-?- SM- no vb lof go od fm n oregular ctx 08/31/22 -?-?-?-?-?-?-?-?-?-?-?-?- 32w 2d 162 lb 2 oz 112/75 Nega tive -?-?-?-?-?-?-?-?-?-?-?-?- Negative 125 32 -?-?-?-?-?-?-?-?-?-?-?-?- JV- no lof ,vagi nal bleeding, or dec fm, ultrasound showed 44th%. ROS Constitutional Constitutional: Reports systems reviewed and no addt'l complaints, except as documented Gastrointestinal Gastrointestinal: Denies bloating, constipation, cramping, diarrhea, nausea or vomiting Genitourinary Genitourinary: Reports other Details: Denies vaginal odor, vaginal bleeding, or vaginal discharge ; Denies difficulty urinating or flank pain Physical Exam HEENT normocephalic Resp normal respiratory effort and normal air movement no CVA tenderness Extremity normal to inspection General Extremity: edema bilateral (trace ) NST FHR Rate Baby A Baseline: 150 Variability:: Moderate Accelerations:: 15 x 15 Decelerations:: None (unknown if decel, broken up strip ) NST Reactive:: Yes FHR Category:: Category I Uterine Activity:: irregular contractions Assessment & Plan (1) False labor before 37 completed weeks of gestation: PLAN: during triage visit a bpp was performed for her pain and a questionable break in FHT that was unable to distinguish from a deceleration. The bpp was 6/8 however the tracing remained reactive and cat 1 , total bpp score of 8/8. pt was given IV fluids and tylenol and felt better. contractions also spaced out. pt dc' to home in stable condition. (2) COVID-19 affecting , antepartum: COMMENT: asa 81mg daily, growth US @ 32 & 36 wks (3) Supervision of high risk , antepartum: COMMENT: PRR , BERNADETTE 10/24/22, girl [facility](Ex) (4) Celiac disease: COMMENT: gluten free diet (5) History of marijuana use: COMMENT: Positive tox screen 08/27/19.Random tox screen Neg tox 01/25/2020 Charges/Coding Multi Select Codes Visit Charges Office Visit/Consults: 10796 OV L3 Est Urinary/Genital Urinary/Genital CPT Codes: 96480-70 non-stress test Interp
== END 2022-09-01 21:15 | disposition home or self-care (01) ==
LOC: WPOUT 15:40 → WP 15:41
PROVIDERS: Obstetrics & Gynecology; PCP Preventive Medicine Occupational Medicine; Referring Provider Registered Nurse; Visit Provider Registered Nurse
DX: O98.513 Other viral diseases complicating pregnancy, third trimester (principal); U07.1 COVID-19; O99.613 Diseases of the digestive system complicating pregnancy, third trimester; O47.03 False labor before 37 completed weeks of gestation, third trimester; O26.93 Pregnancy related conditions, unspecified, third trimester; Z3A.32 32 weeks gestation of pregnancy; K90.0 Celiac disease
CPT/HCPCS: 96374; 96361; 59025; 59050; 76819; 84112; 99221; J7120; G0378; J2405

== ENCOUNTER → 2022-09-27 | Outpatient (CLI) | payer MEDICAID, SELFPAY ==
--- NOTE | 2022-09-27 11:41 | US_ITS ---
STUDY: SECOND AND THIRD TRIMESTER OBSTETRICAL ULTRASOUND - LIMITED REASON FOR EXAM: Growth. PRIOR ULTRASOUND: OB ultrasound August 30, 2022 FINDINGS: There is a single intrauterine fetus. The fetus is in a cephalic presentation. There is demonstrated cardiac activity with a heart rate of 157 bpm. There is a normal amniotic fluid volume. The largest amniotic fluid pocket measures 7.6 cm cm. The amniotic fluid index (JOSAFAT) is 16.7 cm cm. The placenta is anterior. No evidence of abruption. The cervix is not well visualized. BIOMETRY: BPD: 8.2 cm: 33 weeks, 0 days HC: 31.2 cm: 35 weeks, 0 days AC: 32.3 cm: 36 weeks, 1 days FL: 7 cm: 35 weeks, 6 days age by current US: 35 weeks, 0 days. BERNADETTE by current US: November 01, 2022. Estimated weight: 2744) grams, 40 percentile. US/OB Limited With Biometrics IMPRESSION: Single live intrauterine of 35 weeks and 0 days. Electronically Signed: John Lowery MD at 21:10 EDT ,
== END | disposition home or self-care (01) ==
LOC: US 11:40
PROVIDERS: PCP Preventive Medicine Occupational Medicine; Referring Provider Obstetrics & Gynecology; Visit Provider Obstetrics & Gynecology
DX: O98.519 Other viral diseases complicating pregnancy, unspecified trimester (principal); U07.1 COVID-19; Z3A.00 Weeks of gestation of pregnancy not specified
CPT/HCPCS: 76816

== ENCOUNTER → 2022-10-01 | Outpatient (CLI) | payer MEDICAID, SELFPAY | END | disposition home or self-care (01) | PROVIDERS: PCP Preventive Medicine Occupational Medicine; Visit Provider Obstetrics & Gynecology | DX: O09.90 Supervision of high risk pregnancy, unspecified, unspecified trimester (principal); Z3A.00 Weeks of gestation of pregnancy not specified | CPT/HCPCS: 87081 ==

== ENCOUNTER 2022-10-16 09:54 | Inpatient (IN) | payer MEDICAID, SELFPAY ==
[2022-10-16] VITALS (18 sets, daily range): BP systolic 112–132; BP diastolic 56–82; PULSE 74–120; RESP 16; TEMP 36.4–37.5; O2SAT 87–98; BMI 29.7
[2022-10-16] MEDS: Lactated Ringers 1,000 ML 50 ML IV (10:00)
[2022-10-16 10:17] LABS: Absolute Lymphocyte Count 1.05 X10^3/uL (0.83-4.51); Absolute Neutrophil Count 11.5 X10^3/uL (2.0-7.7); Basophil# 0.06 X10^3/uL; Basophil% 0.4 % (0-1); Eosinophil# 0.03 X10^3/uL; Eosinophils% 0.2 % (0-5); Hematocrit 38.7 % (37-47); Hemoglobin 13.2 g/dL (12.0-15.0); Lymphocyte # 1.05 X10^3/ul (0.83-4.51); Lymphocyte % 7.7 % (19-41); Mean Corp Hgb Conc 34.1 g/dL (32-36); Mean Corpuscular Hgb 30.4 pg (27.0-32.0); Mean Corpuscular Volume 89.2 fL (81-99); Mean Platelet Vol. 11.6 fl (6.2-12.0); Monocyte# 0.87 X10^3/uL; Monocyte% 6.4 % (0-10); NRBC Flagged by Analyzer 0 % (0-5); Neutrophil # 11.51 X10^3/uL (2.7-7.7); Neutrophil % 84.1 % (47-70); Platelet Count 185 K/mm3 (150-450); RBC Distribution Width CV 14.6 % (11.6-14.6); RBC Distribution Width SD 47.3 fl (35.1-43.9); Red Blood Count 4.34 M/mm3 (4.2-5.4); White Blood Count 13.7 K/mm3 (4.4-11.0)
[2022-10-16 10:50] LABS: Syphilis Antibodies Non-reactive
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
--- NOTE | 2022-10-16 11:13 | PCM.PN.BLA ---
Progress Note pt consents to membrane rupture. She is still smiling and tolerating labor well. current tracing: FHT: Moderate variability reactive no decelerations category I tracing [place]: q 2-5 min Contractions cx: 7.5/90/0 membranes ruptured with clear fluid return. head well engaged reviewed tracing abnormalities since last note: no change A/P: active labor- continue conservative management. bringing in nitrous now for pain control.
[2022-10-16] MEDS: Oxytocin 10 UNITS/ML Vial IM (11:41)
[2022-10-16] MEDS: Oxytocin 15 Units/NS 250ml 15 UNITS/250 ML IV.SOLN 83 UNITS IV (11:41)
[2022-10-16] MEDS: Lidocaine 1% (20 ml mdv) 20 ML Vial INFILT (11:44)
[2022-10-16] MEDS: Morphine 2 MG/ML Syringe IV (11:50)
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
[2022-10-16] MEDS: Potassium Chloride Oral Tablet 20 MEQ PO (19:33)
[2022-10-17 03:38] VITALS: BP 117/75; PULSE 89; RESP 16; TEMP 36.6; O2SAT 97
[2022-10-17 07:30] VITALS: BP 112/72; PULSE 95; RESP 16; TEMP 36.7; O2SAT 97
[2022-10-17 07:40] VITALS: BP 112/72; PULSE 93
[2022-10-17] MEDS: Potassium Chloride Oral Tablet 20 MEQ PO (08:25)
[2022-10-17] MEDS: Acetaminophen 500 MG Tablet 1000 MG PO (08:26)
--- NOTE | 2022-10-17 09:52 | DCINST_ITS ---
Discharge Instructions Follow Up Care Test Results: Test results from this visit will be discussed in further detail at your follow- up appointment, if applicable. Discharge Plan Admission Admit Date/Time: 10/16/22 09:54 Primary Reason for Your Visit: vaginal delivery Attending Provider: Ramandeep Ferguson Primary Care Provider: Jose Kwon Discharge Orders/Prescriptions Prescriptions: New naproxen 500 mg tablet 500 mg PO BID PRN (Reason: pain) Qty: 30 0RF Continued PNV-DHA 27 mg iron-1 mg -300 mg capsule 1 cap PO DAILY potassium chloride 20 mEq tablet extended release 20 meq PO BID Discontinued Low-Dose Aspirin 81 mg Tablet 81 mg PO DAILY ondansetron [ondansetron] 4 mg tablet,disintegrating 8 mg PO Q8H PRN PRN (Reason: Nausea) Qty: 20 0RF Referrals / Follow Up: Jose Kwon DO [Primary Care Provider] - Disposition Disposition (needs filled in before D/C Order can be placed): Home, Self Care
--- NOTE | 2022-10-17 09:55 | PCM.PN.OB ---
Subjective Subjective Patient doing well without complaints. Tolerating PO. Ambulating and voiding without difficulty. Feeding well. Denies chest pain, shortness of breath, calf pain/swelling, fevers, chills, lightheadedness. She wants to go home today if possible Objective Data Objective Data Vital Signs: Vital Signs Temp Pulse Resp BP Pulse Ox O2 Del Method 98.1 F 93 16 112/72 97 Room Air 10/17/22 07:30 10/17/22 07:40 10/17/22 07:30 10/17/22 07:40 10/17/22 07:30 10/17/22 07:30 Oxygen Delivery Method Room Air Weight: 168 lb Body Mass Index (BMI) 29.7 Intake & Output: Intake and Output for Last 24 Hours 10/15/22 10/16/22 10/17/22 23:59 23:59 23:59 Intake Total 590.83 / 590.83 Output Total 650 / 650 Balance -59.17 / -59.17 Lab / Micro Data Result Diagrams: 10/16/22 10:00 Labs: Laboratory Results - last 24 hr 10/16/22 10:00: WBC 13.7 H, RBC 4.34, Hgb 13.2, Hct 38.7, MCV 89.2, MCH 30.4, MCHC 34.1, RDW Std Deviation 47.3 H, RDW Coeff of Daryl 14.6, Plt Count 185, MPV 11.6, Immature Gran % (Auto) 1.200 H, Neut % (Auto) 84.1 H, Lymph % (Auto) 7.7 L, Josephine % (Auto) 6.4, Eos % (Auto) 0.2, Baso % (Auto) 0.4, Absolute Neuts (auto) 11.5 H, Absolute Lymphs (auto) 1.05, Nucleated RBC % 0 10/16/22 10:00: Blood Type O POSITIVE, Antibody Screen NEGATIVE 10/16/22 10:00: Syphilis Total Ab Non-reactive ROS Constitutional Constitutional: Denies chills, fatigue, fever(s), poor appetite or weakness Eyes Eyes: Denies blurry vision, change in vision, seeing flashes or spots in vision ENT HEENT: Denies dizziness, headache(s), loss taste/smell or sore throat Cardiovascular Cardiovascular: Denies chest pain, dizziness, dyspnea, irregular heart rhythm, palpitations or rapid heart rate Respiratory/Chest Respiratory/Chest: Denies chest tightness, cough, dyspnea or breast pain Gastrointestinal Gastrointestinal: Denies abdominal pain, constipation or vomiting Genitourinary Genitourinary: Denies dysuria or flank pain Musculoskeletal Musculoskeletal: Denies difficulty walking, joint pain, limited range of motion or numbness Neurologic Neurologic: Denies abnormal movements, abnormal speech, dizziness, numbness, seizure-like activity or syncope Psychiatric Psychiatric: Denies anxiety, behavioral changes, change in appetite, confusion, depression or suicidal thoughts Physical Exam Const alert, oriented x3 and no apparent distress General Appearance: cooperative and comfortable Resp normal respiratory effort Cardio regular rate GI normal to inspection, nondistended, normoactive bowel sounds GI Narrative: uterus is firm below umbilicus Palpation: soft Back/Spine no CVA tenderness and thoraco-lumbar ROM normal Extremity normal to inspection, no clubbing, cyanosis or edema, no calf tenderness and no pedal edema Psych mental status grossly normal, thought process normal, cooperative, affect normal, speech normal, activity/motor behavior normal, denies homicidal ideation and denies suicidal ideation Assessment & Plan (1) Status post vaginal delivery: COMMENT: baby girl Ember- 10/16/22 JV PLAN: Plan s/p PPD # 1 1. routine post delivery care 2. breast feeding- support given 3. rh positive 4. rubella immune 5. dc to home today when peds clears baby
[2022-10-17 14:57] VITALS: BP 110/76; PULSE 83; RESP 14; TEMP 36.9
== END 2022-10-17 15:35 | disposition home or self-care (01) | DRG 540 ==
LOC: WP 09:56 → WPOUT 10-18 12:25
PROVIDERS: Admitting Provider Obstetrics & Gynecology; PCP Preventive Medicine Occupational Medicine; Referring Provider Obstetrics & Gynecology; Visit Provider Obstetrics & Gynecology
DX: O99.62 Diseases of the digestive system complicating childbirth (principal); F43.10 Post-traumatic stress disorder, unspecified; O70.0 First degree perineal laceration during delivery; Z3A.38 38 weeks gestation of pregnancy; O99.344 Other mental disorders complicating childbirth; K90.0 Celiac disease; Z37.0 Single live birth; Z79.82 Long term (current) use of aspirin; Z86.16 Personal history of COVID-19
CPT/HCPCS: 59025; 59050; 85025; 86780; 86850; 86900; 86901; 99221; J7120; G0378

== ENCOUNTER → 2024-05-10 | Outpatient (CLI) | payer MEDICAID, SELFPAY ==
[2024-05-14 21:07] LABS: Chlamydia By Nucleic Acid AMP Negative (Negative); Gonococcus By Nucleic Acid AMP Negative (Negative)
== END | disposition home or self-care (01) ==
LOC: LABSPEC 16:27
PROVIDERS: PCP Preventive Medicine Occupational Medicine; Referring Provider Advanced Practice Midwife; Visit Provider Advanced Practice Midwife
DX: Z34.90 Encounter for supervision of normal pregnancy, unspecified, unspecified trimester (principal)
CPT/HCPCS: 87086; 87491; 87591

== ENCOUNTER → 2024-05-22 | Outpatient (CLI) | payer MEDICAID, SELFPAY ==
[2024-05-22 12:17] LABS: Absolute Neutrophil Count 8.4 X10^3/uL (2.0-7.7); Basophil# 0.04 X10^3/uL; Basophil% 0.4 % (0-1); Eosinophil# 0.02 X10^3/uL; Eosinophils% 0.2 % (0-5); Hematocrit 38.8 % (37-47); Hemoglobin 13.2 g/dL (12.0-15.0); Lymphocyte % 9.2 % (19-41); Mean Corpuscular Hgb 31.2 pg (27.0-32.0); Mean Corpuscular Volume 91.7 fL (81-99); Mean Platelet Vol. 11.4 fl (6.2-12.0); Monocyte# 0.39 X10^3/uL; NRBC Flagged by Analyzer 0 % (0-5); Neutrophil # 8.42 X10^3/uL (2.7-7.7); Neutrophil % 85.6 % (47-70); Platelet Count 270 K/mm3 (150-450); RBC Distribution Width CV 13.2 % (11.6-14.6); RBC Distribution Width SD 44.7 fl (35.1-43.9); Red Blood Count 4.23 M/mm3 (4.2-5.4); White Blood Count 9.8 K/mm3 (4.4-11.0)
[2024-05-22 13:37] LABS: HIV - WCH Non-Reactive (Nonreactive); Hepatitis B Surface Antigen Non-Reactive (Nonreactive); Hepatitis C Antibody Non-Reactive (Nonreactive); Rubella IgG Reactive (Nonreactive); Syphilis Antibodies Non-reactive
== END | disposition home or self-care (01) ==
LOC: BWCLAB 10:49
PROVIDERS: PCP Preventive Medicine Occupational Medicine; Referring Provider Advanced Practice Midwife; Visit Provider Advanced Practice Midwife
DX: Z34.90 Encounter for supervision of normal pregnancy, unspecified, unspecified trimester (principal)
CPT/HCPCS: 36415; 85025; 86703; 86762; 86780; 86803; 86850; 86900; 86901; 87340

== ENCOUNTER → 2024-09-05 | Outpatient (CLI) | payer MEDICAID, SELFPAY ==
[2024-09-05 17:13] LABS: Absolute Lymphocyte Count 1.04 X10^3/uL (0.83-4.51); Absolute Neutrophil Count 8.1 X10^3/uL (2.0-7.7); Basophil# 0.07 X10^3/uL; Basophil% 0.7 % (0-1); Eosinophil# 0.04 X10^3/uL; Eosinophils% 0.4 % (0-5); Hematocrit 31.4 % (37-47); Hemoglobin 10.3 g/dL (12.0-15.0); Lymphocyte # 1.04 X10^3/ul (0.83-4.51); Lymphocyte % 10.3 % (19-41); Mean Corp Hgb Conc 32.8 g/dL (32-36); Mean Corpuscular Hgb 30.1 pg (27.0-32.0); Mean Corpuscular Volume 91.8 fL (81-99); Mean Platelet Vol. 11.1 fl (6.2-12.0); Monocyte# 0.47 X10^3/uL; Monocyte% 4.7 % (0-10); NRBC Flagged by Analyzer 0 % (0-5); Neutrophil # 8.12 X10^3/uL (2.7-7.7); Neutrophil % 80.6 % (47-70); Platelet Count 186 K/mm3 (150-450); RBC Distribution Width CV 13.2 % (11.6-14.6); RBC Distribution Width SD 43.7 fl (35.1-43.9); Red Blood Count 3.42 M/mm3 (4.2-5.4); White Blood Count 10.1 K/mm3 (4.4-11.0)
[2024-09-05 17:57] LABS: Glucose Challenge Gest 1H 50g 147 mg/dL; HIV Nonreactive (Nonreactive); Syphilis Antibodies Nonreactive (Nonreactive)
== END | disposition home or self-care (01) ==
PROVIDERS: Obstetrics & Gynecology; PCP Preventive Medicine Occupational Medicine; Referring Provider Obstetrics & Gynecology; Visit Provider Obstetrics & Gynecology
DX: O09.90 Supervision of high risk pregnancy, unspecified, unspecified trimester (principal); Z3A.00 Weeks of gestation of pregnancy not specified; Z13.1 Encounter for screening for diabetes mellitus
CPT/HCPCS: 36415; 82950; 85025; 86703; 86780

== ENCOUNTER → 2024-09-11 | Outpatient (CLI) | payer MEDICAID, SELFPAY ==
[2024-09-11 10:47] LABS: Glucose GTT-Gestation. Fasting 82 mg/dL (<105)
[2024-09-11 13:58] LABS: Glucose GTT-Gestational 1 Hr 174 mg/dL (<190)
[2024-09-11 16:07] LABS: Glucose GTT-Gestational 2 Hr 143 mg/dL (<165)
[2024-09-12 00:26] LABS: Glucose GTT-Gestational 3 Hr 52 L (<145)
== END | disposition home or self-care (01) ==
LOC: LAB 09:51
PROVIDERS: PCP Preventive Medicine Occupational Medicine; Referring Provider Obstetrics & Gynecology; Visit Provider Obstetrics & Gynecology
DX: Z13.1 Encounter for screening for diabetes mellitus (principal)
CPT/HCPCS: 36415; 82951; 82952

== ENCOUNTER 2024-10-09 13:30 | Outpatient (CLI) | payer MEDICAID, SELFPAY ==
[2024-10-09] VITALS (8 sets, daily range): BP systolic 99; BP diastolic 59; PULSE 85–140; RESP 16; TEMP 36.8; O2SAT 97–98; BMI 29.0; BMI 28.2
[2024-10-09 14:24] LABS: ROM Internal Control Test YES-OK TO RESULT pt. (Internal QC)
[2024-10-09 14:25] LABS: ROM Patient Test Negative (Negative); Record Kit Lot#, ROM+ K3294
--- NOTE | 2024-10-17 22:28 | OB.TRI.PN_ITS ---
Progress Notes Date of Service: 10/09/24 Progress Note: Patient presents for triage evaluation secondary to possible rom FHT: a 140 Moderate variability reactive no decelerations category I tracing b 130 Moderate variability reactive no decelerations category I tracing [facility]: no regular Contractions Assessment and plan: false labor amniotic membrnaes intact 30 weeks Reactive NST, reassuring maternal and status patient discharged to home to follow-up as scheudled. See problem list details for additional plan information. Laboratory Studies: Laboratory Tests 10/09/24 Range/Units 13:45 Vag Amniotic Fld Detect Negative (Negative) Charges/Coding Procedures Urinary/Genital 52xxx-59xxx: 67898-70 non-stress test Interp
== END 2024-10-09 14:32 | disposition home or self-care (01) ==
LOC: WPOUT 13:35 → WP 13:35
PROVIDERS: PCP Preventive Medicine Occupational Medicine; Referring Provider Obstetrics & Gynecology; Visit Provider Obstetrics & Gynecology
DX: O47.03 False labor before 37 completed weeks of gestation, third trimester (principal); Z3A.30 30 weeks gestation of pregnancy
CPT/HCPCS: 59025; 59050; 84112; 99221; G0378

== ENCOUNTER 2024-10-25 09:42 | Outpatient (CLI) | payer MEDICAID, SELFPAY ==
[2024-10-25] VITALS (7 sets, daily range): BP systolic 143; BP diastolic 70; PULSE 103–138; RESP 16; TEMP 36.7; O2SAT 98–100; BMI 28.9
[2024-10-25 10:15] LABS: Color, Urine Yellow (Yellow); Glucose, Dipstick Normal (Normal); Ketone-Dipstick Negative (Negative); Leukocyte Esterase-Dipstick 500 /ul (Negative); Nitrite-Dipstick Negative (Negative); Occult Blood-Urine Negative /ul (Negative); Protein-Dipstick 15 mg/dl (Negative); Specific Gravity, Urine 1.015 (1.002-1.030); Urine Bilirubin Dipstick Negative (Negative); Urine Clarity Clear (Clear); Urine Urobilinogen Normal (Normal)
--- NOTE | 2024-10-25 10:28 | OB.TRI.PN_ITS ---
Progress Notes Date of Service: 10/25/24 Progress Note: Patient presents for triage evaluation secondary to spotting FHT: A 150 Moderate variability reactive no decelerations category I tracing B 150 Moderate variability reactive no decelerations category I tracing [place]: irritability Contractions Assessment and plan: 32 weeks false labor vaginla bleeding cervix .5 cm thick high no reuglar ctx stable urine sent for culture Reactive NST, reassuring maternal and status patient discharged to home to follow-up as scheduled. See problem list details for additional plan information. Laboratory Studies: Laboratory Tests 10/25/24 Range/Units 10:00 Urine Color Yellow (Yellow) Urine Clarity Clear (Clear) Urine pH 8.0 (5.0 - 8.0) Ur Specific [place] 1.015 (1.002-1.030) Urine Protein 15 H (Negative) mg/dl Urine Glucose (UA) Normal (Normal) mg/dl Urine Ketones Negative (Negative) mg/dl Urine Occult Blood Negative (Negative) /ul Urine Nitrite Negative (Negative) Urine Bilirubin Negative (Negative) mg/dL Urine Urobilinogen Normal (Normal) mg/dl Ur Leukocyte Esterase 500 H (Negative) /ul Charges/Coding Procedures Urinary/Genital 52xxx-59xxx: 63048-90 non-stress test Interp
== END 2024-10-25 10:35 | disposition home or self-care (01) ==
LOC: WPOUT 09:44 → WP 09:45
PROVIDERS: PCP Preventive Medicine Occupational Medicine; Referring Provider Obstetrics & Gynecology; Visit Provider Obstetrics & Gynecology
DX: O47.03 False labor before 37 completed weeks of gestation, third trimester (principal); Z3A.32 32 weeks gestation of pregnancy; Z79.82 Long term (current) use of aspirin
CPT/HCPCS: 59025; 59050; 81002; 87086; 87088; 99221; G0378

== ENCOUNTER 2024-11-01 10:07 | Outpatient (CLI) | payer MEDICAID, SELFPAY ==
[2024-11-01 10:41] VITALS: BMI 31.1
[2024-11-01 10:48] VITALS: BP 109/64; PULSE 126
[2024-11-01 10:50] VITALS: PULSE 120; RESP 16; TEMP 36.8; O2SAT 98
--- NOTE | 2024-11-01 11:37 | OB.TRI.PN ---
Progress Notes Date of Service: 11/01/24 Progress Note: Patient presents for triage evaluation secondary to vaginal bleeding twins FHT: a 140 Moderate variability reactive no decelerations category I tracing b 130 Moderate variability reactive no decelerations category I tracing [place]: q 20 min Contractions Assessment and plan: 33 week twin vaginal bleeding cervix 1 cm thick no bleeding seen, false labor reassuring tracing, Reactive NST, reassuring maternal and status patient discharged to home to follow-up as scheduled. See problem list details for additional plan information. Charges/Coding Procedures Urinary/Genital 52xxx-59xxx: 79529-73 non-stress test Interp
[2024-11-01 12:04] LABS: Bacteria 0 SEEN /hpf (None Seen); Mucous, Urine 0 SEEN /hpf (<or=2+); Red Blood Cells-Urine 0 SEEN /hpf (0-5)
[2024-11-01 12:13] LABS: Color, Urine Yellow (Yellow); Glucose, Dipstick Normal (Normal); Ketone-Dipstick Negative (Negative); Leukocyte Esterase-Dipstick 500 /ul (Negative); Nitrite-Dipstick Negative (Negative); Occult Blood-Urine Negative /ul (Negative); Protein-Dipstick 15 mg/dl (Negative); Urine Bilirubin Dipstick Negative (Negative); Urine Clarity Sl. Cloudy (Clear); Urine Urobilinogen Normal (Normal)
[2024-11-01 12:18] LABS: Squamous Epithelial Cells - UA 10-25 SEEN /hpf (5-10)
[2024-11-01 12:19] LABS: White Blood Cells 0-5 SEEN /hpf (0-5)
== END 2024-11-01 11:40 | disposition home or self-care (01) ==
LOC: WPOUT 10:16 → WP 10:16
PROVIDERS: PCP Preventive Medicine Occupational Medicine; Referring Provider Obstetrics & Gynecology; Visit Provider Obstetrics & Gynecology
DX: O47.03 False labor before 37 completed weeks of gestation, third trimester (principal); Z79.82 Long term (current) use of aspirin; Z79.899 Other long term (current) drug therapy; Z3A.33 33 weeks gestation of pregnancy
CPT/HCPCS: 59025; 59050; 81001; 87086; 87088; 99221; G0378

== ENCOUNTER 2024-11-07 22:05 | Outpatient (CLI) | payer MEDICAID, SELFPAY ==
[2024-11-07] VITALS (24 sets, daily range): BP systolic 100–112; BP diastolic 68–74; PULSE 89–142; RESP 16; TEMP 36.6; O2SAT 97–99; BMI 30.4
[2024-11-08] VITALS (12 sets, daily range): PULSE 71–105; O2SAT 97–100
--- NOTE | 2024-11-08 01:34 | OB.TRI.PN ---
Progress Notes Date of Service: 11/07/24 Progress Note: Patient presents for triage evaluation secondary to contractions FHT: 140 Moderate variability reactive no decelerations category I tracing [place]: q 2-5 Contractions Assessment and plan: threatened labor 34 weeks Reactive NST, reassuring maternal and status patient discharged to home to follow-up as csheduled no cervical change dc home. See problem list details for additional plan information. Charges/Coding Procedures Urinary/Genital 52xxx-59xxx: 18758-77 non-stress test Interp
== END 2024-11-08 01:06 | disposition home or self-care (01) ==
LOC: WPOUT 22:08 → WP 22:08
PROVIDERS: PCP Preventive Medicine Occupational Medicine; Referring Provider Obstetrics & Gynecology; Visit Provider Obstetrics & Gynecology
DX: O47.03 False labor before 37 completed weeks of gestation, third trimester (principal); Z3A.34 34 weeks gestation of pregnancy
CPT/HCPCS: 59025; 59050; 99221; G0378

== ENCOUNTER → 2024-11-13 | Outpatient (CLI) | payer MEDICAID, SELFPAY | END | disposition home or self-care (01) | LOC: LABSPEC 16:42 | PROVIDERS: PCP Preventive Medicine Occupational Medicine; Referring Provider Obstetrics & Gynecology; Visit Provider Obstetrics & Gynecology | DX: O09.90 Supervision of high risk pregnancy, unspecified, unspecified trimester (principal); Z3A.00 Weeks of gestation of pregnancy not specified | CPT/HCPCS: 87081 ==

== ENCOUNTER 2024-11-14 21:12 | Inpatient (IN) | payer MEDICAID, SELFPAY ==
[2024-11-14 21:06] VITALS: PULSE 245; O2SAT 81
[2024-11-14 21:11] VITALS: BP 130/78; PULSE 84; RESP 17; TEMP 36.4
--- NOTE | 2024-11-14 21:14 | HP.PCM.OB_ITS ---
HPI - General HPI Narrative DARRYL BUI, is a 24 y/o @35 weeks 4 days who presents to L&D with contractions q 2 minutes. On exam she is noted to be 5 cm dilated with bulging membranes, 85% effaced and -1 station. She is a twin gestation and baby B is breech. She denies loss of fluid, vaginal bleeding, or decreased movement. Maternal Data Information BERNADETTE Calculator Estimated Delivery Date Method Current WG Current Estimate 12/15/24 Ultrasound #1 35w 4d Other Estimates 12/15/24 LMP (Certain) 35w 4d # 2 PFSH PFSH Medical History Twin History of marijuana use Trauma Migraine Autoimmune disease Family history of hemophilia History of suicidal ideation Anxiety and depression Home Medications ?Medication ?Instructions ?Recorded ?Last Taken ?Type docosahexaenoic acid 200 mg 1 mg PO DAILY 05/01/2407/28 08:00 History capsule ( DHA) famotidine 20 mg tablet (Pepcid) 20 mg PO DAILY #30 ta bs 09/05/24 Unknown Rx aspirin 81 mg chewable tablet 1 tab PO DAILY 10/09/24 11/01/24 08:00 History (Aspirin Childrens) ferrous sulfate 325 mg (65 mg 325 mg PO DAILY 10/09/24 10/31/24 22:00 History iron) tablet (Feosol) Allergy/AdvReac Type Severity Reaction Status Date / Time gluten Allergy Severe Abd Verified 11/14/24 21:19 cramps/diarrhea amoxicillin Allergy Mild Rash Verified 11/14/24 21:19 penicillin G Allergy Mild Rash Verified 11/14/24 21:19 pomegranate Allergy Anaphylaxis Verified 11/14/24 21:19 Family History Mother Arthritis Fibromyalgia Father Epilepsy Surgical History Status post vaginal delivery Status post vaginal delivery H/O breast surgery Social History adopted: No household members: children number of children: 2 current occupational status: employed current occupation: [employer] current occupational exposures/hazards: No pets and animals: No history of recent travel: Yes ([place] - Mar 2024) out of state: Yes out of country: No sexually active: Yes Smoking Status: Never smoker alcohol intake: never substance use type: marijuana diet: gluten free well-balanced diet: daily or most days caffeine: Yes Type: coffee Number of servings: 1 eating out: rarely or never during the past year weight has: remained stable what type of physical activity do you participate in: walking frequency: 3-4 times per week duration: < 15 minutes/day kyra/protestant: Rastafarian seatbelt use: always do you feel safe at home: Yes additional social history: BF: Drake - Contractor at [employer] History 4 Elective abortions Hx Para 2 Spontaneous abortions 1 Hx # Term Pregnancies 1 Ectopic pregnancies Hx # Pregnancies Multiple births # of living children 2 Past Pregnancies Del. Date Name GA/Weeks Outcome Route Bth Weight Infant Gen Labor Lgth Anes thesi a Del Locatn Provider FOB Unknown 2016 miscarriage spontaneous 03/15/20 [place] 39 live - full term 7lbs 12oz Female n one [facility] 10/16/22 E[place] 38 live - full term 7lbs 7.4oz Female none [facility] Dr. Angulo Delivery Date: 03/15/20 Last Updated by: Shital Loving no complications Delivery Date: 10/16/22 Last Updated by: Eun Griffith COVID Visit Details Expected Delivery Route/Plan Labor Preferences- CB/BF classes: [] labor support person: [] labor intervention preferences: [] pain management options preferred: [] cut cord/dad catch: [] : [] PP control planned: [] discussed possible routes of delivery and associated risks: [] special requests: [] Plans Covid status: [] Flu vaccine: [] Tdap vaccine: declined Rhogam: [] LARC form signed: [] movement and labor precautions reviewed. Problem list reviewed and updated with the most current plan of care details and appropriate orders placed. Relevant counseling for the gestational age provided. Continue routine care and follow up unless otherwise noted in visit notes/problem list details OB Flowsheet Initial Weight: 132 lb Date -?-?-?-?-?-?-?-?-?-?-?-?- EGA Weight BP Urine Prot -?-?-?-?-?-?-?-?-?-?-?-?- Glucose FHR FuHt Pres Dilation -?-?-?-?-?-?-?-?-?-?-?-?- Effaced St Visit Note 05/10/24 -?-?-?-?-?-?-?-?-?-?-?-?- 8w 5d 132 lb (+0 oz) 112/59 -?-?-?-?-?-?-?-?-?-?-?-?- A 180 -?-?-?-?-?-?-?-?-?-?-?-?- B 180 A -?-?-?-?-?-?-?-?-?-?-?-?- B -?-?-?-?-?-?-?-?-?-?-?-?- A -?-?-?-?-?-?-?-?-?-?-?-?- B A [facility] cons with dates. appears to be Di Di twins. M consult. accepts NIPT -?-?-?-?-?-?-?-?-?-?-?-?- B 06/07/24 -?-?-?-?-?-?-?-?-?-?-?-?- 12w 5d 137 lb 4 oz (+5 lb 4 oz) 118/77 Negative -?-?-?-?-?-?-?-?-?-?-?-?- Negative A 140 -?-?-?-?-?-?-?-?-?-?-?-?- B 130 A -?-?-?-?-?-?-?-?-?-?-?-?- B -?-?-?-?-?-?-?-?-?-?-?-?- A -?-?-?-?-?-?-?-?-?-?-?-?- B A JV- CRL's are co nsistent with the established gestational age. She is still feeling very sick. sending promethazine to pharmacy. Not losing weight. keeping down fluids. -?-?-?-?-?-?-?-?-?-?-?-?- B 07/09/24 -?-?-?-?-?-?-?-?-?-?-?-?- 17w 2d 143 lb 8 oz (+11 lb 8 oz) 110/69 Negative -?-?--?-?-?-?-?-?-?-?-?-?- Negative A 140 -?-?-?-?-?-?-?-?-?-?-?-?- B 150 A -?-?-?-?-?-?-?-?-?-?-?-?- B -?-?-?-?-?-?-?-?-?-?-?-?- A -?-?-?-?-?-?-?-?-?-?-?-?- B A JV- NIPT girls! no complaints today. has anatomy scan scheduled. -?-?-?-?-?-?-?-?-?-?-?-?- B 08/14/24 -?-?-?-?-?-?-?-?-?-?-?-?- 22w 3d 150 lb (+18 lb) 123/81 Negative -?-?-?-?-?-?-?-?-?-?-?-?- Negative A 157 -?-?-?-?-?-?-?-?-?-?-?-?- B 158 A -?-?-?-?-?-?-?-?-?-?--?-?- B -?-?-?-?-?-?-?-?-?-?-?-?- A -?-?-?-?-?-?-?-?-?-?-?-?- B A SM- no vb lof go od fm no regular ctx -?-?-?-?-?-?-?-?-?-?-?-?- B 09/05/24 -?-?-?-?-?-?-?-?-?-?-?-?- 25w 4d 155 lb 6 oz (+23 lb 6 oz) 111/75 Negative -?-?-?-?-?-?-?-?-?-?-?-?- Negative A 158 -?--?-?-?-?-?-?-?-?-?-?-?- B 153 A -?-?-?-?-?-?-?-?-?-?-?-?- B -?-?-?-?-?-?-?-?-?-?-?-?- A -?-?-?-?-?-?-?-?-?-?-?-?- B A SM- no vb lof go od fm no regular ctx co heartburn -?-?-?-?-?-?-?-?-?-?-?-?- B 10/02/24 -?-?-?-?-?-?-?-?-?-?-?-?- 29w 3d 160 lb 4 oz (+28 lb 4 oz) 106/71 Negative -?-?-?-?-?-?-?-?-?-?-?-?- Negative A 138 -?-?-?-?-?-?-?-?-?-?-?-?- B 125 A Cephalic -?-?-?-?-?-?-?-?-?-?-?-?- B Transverse -?-?-?-?-?-?-?-?-?--?-?-?- A -?-?-?-?-?-?-?-?-?-?-?-?- B A JV- no complaint s today. no lof, vaginal bleeding, or dec fm. -?-?-?-?-?-?-?-?-?-?-?-?- B 10/17/24 -?-?-?-?-?-?-?-?-?-?-?-?- 31w 4d 166 lb 2 oz (+34 lb 2 oz) 111/75 -?-?-?-?-?-?-?-?-?-?-?-?- A 140 -?-?-?-?-?-?-?-?-?-?-?-?- B 125 A Cephalic -?-?-?-?-?-?-?-?-?-?-?-?- B Cephalic -?-?-?-?-?-?-?-?-?-?-?-?- A -?-?-?-?-?-?-?-?-?-?-?-?- B A SM- no vb lof go od fm no reuglar ctx -?-?-?-?-?-?-?-?-?-?-?-?- B 10/29/24 -?-?-?-?-?-?-?-?-?-?-?-?- 33w 2d 166 lb 6 oz (+34 lb 6 oz) 115/72 Negative -?-?-?-?-?-?-?-?-?-?-?-?- Negative A 144 -?-?-?-?-?-?-?-?-?-?-?-?- B 143 A Cephalic -?-?-?-?-?-?-?-?-?-?-?-?- B Cephalic -?-?-?-?-?-?-?-?-?-?-?-?- A -?-?-?-?-?-?-?-?-?-?-?-?- B A JV- no complaint s today. feeling good movement and no contractions. planning 38 week IOL if no labor before this. -?-?-?-?-?-?-?-?-?-?-?-?- B 11/13/24 -?-?-?-?-?-?-?-?-?-?-?-?- 35w 3d 171 lb 6 oz (+39 lb 6 oz) 120/78 Negative -?-?-?-?-?-?-?-?-?-?-?-?- Negative A 140 -?-?-?-?-?-?-?-?-?-?-?-?- B 145 A Cephalic -?-?-?-?-?-?-?-?-?-?-?-?- B Breech -?-?-?-?-?-?-?-?-?-?-?-?- A -?-?-?-?-?-?-?-?-?-?-?-?- B A SM- no vb lof ir regualr ctx good fm discussed delivery expectations -?-?-?-?-?-?-?-?-?-?-?-?- B NST FHR Rate Baby A Baseline: 140 Variability:: Moderate Accelerations:: 15 x 15 Decelerations:: None NST Reactive:: Yes FHR Category:: Category I FHR Rate Baby B Baseline: 120 Variability:: Moderate Accelerations:: 15 x 15 Decelerations:: None NST Reactive:: Yes FHR Category:: Category I Uterine Activity:: contractions q 2 minutes ROS Constitutional Constitutional: Denies change in weight, fatigue, fever(s), headache(s), poor appetite or weakness Eyes Eyes: Denies blurry vision, change in vision, seeing flashes or spots in vision ENT HEENT: Denies dizziness, headache(s), loss taste/smell or sore throat Cardiovascular Cardiovascular: Denies chest pain, dizziness, dyspnea, irregular heart rhythm, leg edema, palpitations, rapid heart rate or vomiting Respiratory/Chest Respiratory/Chest: Denies chest tightness, cough, dyspnea or breast pain Gastrointestinal Gastrointestinal: Denies abdominal pain, anorexia, constipation, cramping, diarrhea, hemorrhoids, vomiting or weight changes Genitourinary Genitourinary: Denies dysuria, flank pain, genital lesions, genital pain, urinary frequency or urinary urgency Musculoskeletal Musculoskeletal: Denies back pain, difficulty walking, joint pain, limited range of motion, muscle cramps or numbness Integumentary Integumentary: Denies lesions or unusual bruising Neurologic Neurologic: Denies abnormal movements, abnormal speech, dizziness, numbness, seizure-like activity or syncope Psychiatric Psychiatric: Denies anxiety, behavioral changes, change in appetite, change in libido, cognitive impairment, confusion, depression, difficulty concentrating, hallucinations or suicidal thoughts Endocrine Endocrinology: Denies excessive sweating, polydipsia or polyuria Hematologic/Lymphatic Hematologic/Lymphatic: Denies easy bleeding, easy bruising or lymphadenopathy Allergic/Immunologic Allergic/Immunologic: Denies itchy eyes, lip swelling, seasonal rhinorrhea, rhinitis, throat swelling, tongue swelling, eczemia, wheezing or asthma Vital Signs Vital Signs Vital Signs: 11/14/24 21:06 11/14/24 21:06 11/14/24 21:11 Temperature Temperature Source Pulse Rate 245 H Respiratory Rate Blood Pressure 130/78 H BP Systolic 130 BP Diastolic 78 Pulse Ox 81 11/14/24 21:11 11/14/24 21:11 11/14/24 21:11 Temperature Temperature Source Temporal Pulse Rate 84 Respiratory Rate 17 Blood Pressure BP Systolic BP Diastolic Pulse Ox 11/14/24 21:11 Temperature 97.6 F L Temperature Source Pulse Rate Respiratory Rate Blood Pressure BP Systolic BP Diastolic Pulse Ox Physical Exam Const alert, oriented x3, no apparent distress and healthy appearing General Appearance: cooperative; Negative for anxious HEENT normocephalic Face and Sinus: normal facial exam Eyes EOMs intact bilaterally and no scleral icterus General Eye: normal appearance of both eyes Neck full ROM and supple Lymph Lymphatic: no lymphadenopathy noted Chest Chest: abnormal inspection of the chest Resp normal respiratory effort Effort and Inspection: able to speak in complete sentences Cardio regular rate GI soft to palpation and non-tender Inspection: gravid Palpation: soft; Negative for tender Rectal Exam: other Other Details: baby A vertex, baby B right upper quadrant breech. external exam normal Back/Spine no CVA tenderness Extremity normal to inspection, full ROM and no clubbing, cyanosis or edema General Extremity: Negative for calf tenderness or edema Skin Lesions: no lesions Rashes: no rashes Psych mental status grossly normal Labs Labs Labs: Blood Type O POSITIVE Antibody Screen NEGATIVE Hct 31.4 % (37-47) L Hgb 10.3 g/dL (12.0-15.0) L Obstetrics Ultrasound Syphilis Total Ab Nonreactive (Nonreactive) Rubella IgG Antibody Reactive (Nonreactive) Hep Bs Antigen Non-Reactive (Nonreactive) Hepatitis C Antibody Non-Reactive (Nonreactive) Chlamydia DNA (JOI) Negative (Negative) N.gonorrhoeae DNA (JOI) Negative (Negative) HIV 1&2 Antibody Nonreactive (Nonreactive) Glucose 1 Hr 50 gm 147 mg/dL Gest Glucose Tolerance MG/DL Rhogam given: No Miscellaneous Test COMMENT Assessment & Plan (1) Anemia affecting : COMMENT: OTC Fe Daily (2) Dichorionic diamniotic twin gestation: COMMENT: growths q4 at 24 weeks. NSTs at 36weeks on L&D. nl growth. baby B breech. (3) Abnormal glucose: COMMENT: 3 HR GTT (4) Family history of hemophilia: COMMENT: maternal grandfather (5) Supervision of high-risk : COMMENT: PRR, , BERNADETTE 12/15/24, girls Darya, Ashlyn PC: River & Amber, BF: Drake (6) : QUALIFIERS: Weeks of gestation: 35 weeks Qualified Code(s): Z 3A.35 - 35 weeks gestation of COMMENT: Prior carrier testing done: negative. NIPT low risk. nl anatomy (7) Celiac disease: COMMENT: gluten free diet PLAN: Plan After discussing the patient's diagnosis and treatment plan options, patient wishes to proceed with surgical management. I have discussed with the patient the risks, benefits, and alternatives of the procedure which include but are not limited to risks of anesthesia, bleeding, infection, possible damage to bowel, bladder, or surrounding vasculature which could lead to additional surgery to evaluate any complications. Patient agrees to procedure and wishes to proceed. plan for primary cs for twins, baby B breech MONIQUE
[2024-11-14 21:18] VITALS: BMI 30.1
[2024-11-14] MEDS: Lactated Ringers 1,000 ML 999 ML IV (21:30)
[2024-11-14 21:45] VITALS: BP 130/78; PULSE 84; RESP 17; TEMP 36.4; O2SAT 98
[2024-11-14 21:46] VITALS: O2SAT 98
[2024-11-14] MEDS: Sodium Citrate/Citric Acid 30 ML UDC PO (21:55)
[2024-11-14] MEDS: Acetaminophen 500 MG Tablet 1000 MG PO (21:55)
[2024-11-14 22:20] LABS: Absolute Lymphocyte Count 0.98 X10^3/uL (0.83-4.51); Absolute Neutrophil Count 8.6 X10^3/uL (2.0-7.7); Basophil# 0.06 X10^3/uL; Basophil% 0.6 % (0-1); Eosinophil# 0.01 X10^3/uL; Eosinophils% 0.1 % (0-5); Hematocrit 32.1 % (37-47); Hemoglobin 10.4 g/dL (12.0-15.0); Lymphocyte # 0.98 X10^3/ul (0.83-4.51); Lymphocyte % 9.5 % (19-41); Mean Corp Hgb Conc 32.4 g/dL (32-36); Mean Corpuscular Hgb 26.3 pg (27.0-32.0); Mean Corpuscular Volume 81.3 fL (81-99); Mean Platelet Vol. 12.5 fl (6.2-12.0); Monocyte# 0.54 X10^3/uL; Monocyte% 5.2 % (0-10); NRBC Flagged by Analyzer 0.2 % (0-5); Neutrophil % 83.3 % (47-70); Platelet Count 227 K/mm3 (150-450); RBC Distribution Width CV 15.5 % (11.6-14.6); RBC Distribution Width SD 46.2 fl (35.1-43.9); Red Blood Count 3.95 M/mm3 (4.2-5.4); White Blood Count 10.3 K/mm3 (4.4-11.0)
[2024-11-14] MEDS: Lactated Ringers 1,000 ML 150 ML IV (22:37)
[2024-11-14 22:41] LABS: Syphilis Antibodies Nonreactive (Nonreactive)
[2024-11-14] MEDS: Clindamycin 900 MG in Dextrose 5%-Water (50mL Bag) 50 ML 150 MG IV (23:16)
[2024-11-14] MEDS: Gentamicin IV 260 MG in Dextrose 5%-Water (50mL Bag) 50 ML 100 MG IVPB (23:28)
--- NOTE | 2024-11-14 23:43 | OP.PCM_ITS ---
Assessment & Plan (1) Anemia affecting : COMMENT: OTC Fe Daily (2) Abnormal glucose: COMMENT: 3 HR GTT (3) Dichorionic diamniotic twin gestation: COMMENT: growths q4 at 24 weeks. NSTs at 36weeks on L&D. nl growth. baby B breech. (4) Family history of hemophilia: COMMENT: maternal grandfather (5) Supervision of high-risk : COMMENT: PRR, , BERNADETTE 12/15/24, girls Madisyn, Ashlyn PC: River & Amber BF: Drake Maternal Data Information BERNADETTE Calculator Estimated Delivery Date Method Current WG Current Estimate 12/15/24 Ultrasound #1 35w 4d Other Estimates 12/15/24 LMP (Certain) 35w 4d # 2 Final BERNADETTE: 12/15/24 Final BERNADETTE Source: US <20 weeks Gestational age: 35 weeks 4 days Doctor Who Attended Delivery: Shikha Van Operative Report (OB) Details Procedure Type: low transverse Date of Procedure: 11/14/24 Procedure Start Time: 23:08 Procedure Stop Time: 23:39 Time of Delivery: 23:12 Pre-Operative Diagnosis: Malpresentation and Other (twin gestation, active labor , baby b breech ) Other Pre-Operative diagnosis: none Post-Operative Diagnosis: Same as Pre-operative diagnosis Classification: MONIQUE Type of Anesthesia: Spinal Antibiotic Given: Clindamycin 600mg IV x1 and Gentamicin 1.5mg/kg IV x1 Drain: Soares to straight drain Estimated Blood Loss: 600cc Findings Description of surgery: The patient is a 24 y/o @ 35 weeks 4 days, in active labor with a twin gestation. Baby presenting breech. Spinal anesthesia was placed without difficulty. Soares catheter was placed. The patient was placed in the dorsal supine position with leftward tilt. Patient was prepped and draped in the normal sterile fashion. Pfannenstiel skin incision was made with the scalpel and carried through to the underlying layer of fascia with the scalpel. Fascia was nicked in the midline and the incision extended laterally. The rectus bellies were dissected off superiorly and inferiorly with out complication both sharply and bluntly. The peritoneum was entered digitally. The incision was stretched and a low transverse uterine incision was made with the scalpel. The 's head was delivered atraumatically followed by the anterior and post erior shoulders without complication the rest of the infant delivered. The cord was clamped and cut and the infant was handed off to awaiting nurse. The sencond membrane sac was opened with an jodie clamp and clear fluid returned. The 's feet, then torso, and right arm delivered. The was rotated to deliver the left arm and when this delivere the head delivered spontaneously. The placenta was delivered with expression immediately following and was noted to be intact and have a three-vessel cord and the 2 placentas by a membrane. The uterus was exteriorized cleared of all clots and debris, and the incision was closed in a double layer closure using #1 Vicryl and #1 Monocryl. The ovaries and fallopian tubes were noted to be within normal limits. The uterus was returned to the maternal abdomen and gutters were cleared of all clots and debris. The peritoneum was closed with 3-0 Monocryl in a running fashion. Fascia was closed with 0 PDS in a running fashion. Subcutaneous tissue was copiously irrigated and the skin was closed with 3-0 Monocryl in a subcuticular fashion. Mepilex dressing was applied without complication. Patient was taken to recovery in stable condition. It was discussed with the patient that based on the clinical information obtained during this encounter, combined with her history, at this time I would recommend or repeat ce sarean for future deliveries if further pregnancies are desired. Surgical findings: viable twin girls madisyn and Ashlyn Presentation: Vertex Amniotic Membrane Rupture Type: Artificial Amniotic Fluid Description: Clear Placental Delivery Description: Expressed Placenta Disposition: [facility] Specimen collected: No Cord Vessel Description: 3 Vessels Cord Entanglement: None Infant A gender: Female (1 minute): 8 (5 minute): 9 Delayed Cord Clamping: Yes Teacher Lip Reading accounting officer: Yes Ceramics Artist: liss Tasks completed by asset protection assistant: Hemostasis: Clamp, Hemostasis: Electrocautery and Retracting Additional fitness assistant?: No Complications Complications: No Baby B Information Amniotic Membrane Rupture Type: Artificial Presentation: Footling Breech Operative Information Mode of Delivery: Cord Vessel Description: 3 Vessels Cord Entanglement: Around neck x 1, loose Nuchal Cord Compression: With compression Infant B gender: Female (1 minute): 5 (5 minute): 7 Delayed Cord Clamping: Yes Admit VTE Documentation VTE Present on Admission: No VTE Mechan Device Prophylaxis: SCD's VTE Pharm Prophylaxis Ordered: No Multi Select Codes Urinary/Genital Urinary/Genital CPT Codes: 85745 delivery+PP Care([facility])
--- NOTE | 2024-11-14 23:50 | DCINST_ITS ---
Discharge Instructions Diet Discharge Diet: No restrictions DC O2, CPAP, BIPAP needs Home O2 Discharge instructions: No Dressing / Incision Discharge Activity: May Not Drive (for 2 weeks or while taking narcotic pain medications.), May Shower and May Take a Tub Bath (in 7 days.) May resume sexual activity in: 4-6 weeks Weight Bearing Status: Full weight bearing Lifting Restrictions: 20 pounds Dressing / Incision Call your doctor if your incision/area has: Continuous Slow Oozing, Sudden Increased Bleeding, Increased Pain/ Swelling, Increased Redness and Foul Smelling Discharge Call your doctor if you observe: Fever of 101 or Higher and Using more than 1 pad per hour Suture Line Care: Avoid Pulling/Pushing and Avoid Pinching/Bending Cleanse incision/area with: Soap & Water and Keep Dressing Clean & Dry Follow Up Care Please Follow Up With: Ramandeep Ferguson DO When: Call [phone] to make an appointment for an incision check in 1-2 weeks. Test Results: Test results from this visit will be discussed in further detail at your follow- up appointment, if applicable. Discharge Plan Admission Admit Date/Time: 11/14/24 21:12 Primary Reason for Your Visit: section Attending Provider: Ramandeep Ferguson Primary Care Provider: Jose Kwon Discharge Orders/Prescriptions Prescriptions: New ibuprofen 800 mg tablet 800 mg PO Q8H PRN (Reason: pain) Qty: 30 0RF oxycodone-acetaminophen [Percocet] 5-325 mg tablet 1 tab PO Q4H PRN (Reason: pain) 7 Days Qty: 20 0RF Continued DHA 200 mg capsule 1 mg PO DAILY famotidine [Pepcid] 20 mg tablet 20 mg PO DAILY Qty: 30 6RF ferrous sulfate [Feosol] 325 mg (65 mg iron) tablet 325 mg PO DAILY Discontinued aspirin [Aspirin Childrens] 81 mg tablet,chewable 1 tab PO DAILY Referrals / Follow Up: Jose Kwon DO [Primary Care Provider] - Disposition Disposition (needs filled in before D/C Order can be placed): Home, Self Care
[2024-11-14 23:55] VITALS: BP 130/78; BP 137/110; PULSE 96; RESP 16; TEMP 36.6; O2SAT 97
[2024-11-15] VITALS (19 sets, daily range): BP systolic 91–130; BP diastolic 54–90; PULSE 55–95; RESP 13–23; TEMP 36.3–36.8; O2SAT 94–100
[2024-11-15] MEDS: Oxytocin 15 Units/NS 250ml 15 UNITS/250 ML IV.SOLN 83 UNITS IV
[2024-11-15] MEDS: Lactated Ringers 1,000 ML 100 ML IV
[2024-11-15] MEDS: Ketorolac 30 MG/ML Syringe IV ×4 (01:06→20:48)
--- NOTE | 2024-11-15 01:46 | PLAC_PTH ---
PATIENT: DARRYL BUI LOC: [facility] U#:[id number] AGE/SX: 24/F ROOM: WP006 RE11/14/[address]: Dr. Ramandeep Ferguson DO : 2000 BED: 1 DIS: 11/16/2024 SPEC #: [id number] RECD: 11/15/24 09:09 STATUS: PREETHI JESSICA #: [id number] SILVANA: 11/15/24 01:[address]: Ramandeep Ferguson DEPT: SURGICAL PATHOLOGY RECD BY: Henry Armas ENTERED: 11/15/24 09:10 SP TYPE: PLACENTA OTHR DR: Dr. Jose Kwon, Tissues: A - Placenta, NOS Procedures: Surgery Specimen Level V HEADER OPERATION: Primary section PRE-OP DIAGNOSIS: Twins TISSUE SUBMITTED: A- Placenta MICROSCOPIC DIAGNOSIS A. Twin placentas, 35 weeks/4 days, section: * Separate placentas with diamnionic dichorionic partial dividing membrane. * Placenta A: mature placenta, 451.8 grams, with 3 vessel cord and no significant pathologic change. * Placenta B: mature placenta, 452.3 grams, with 3 vessel cord and focal infarction involving less than 7% of the parenchyma. MICROSCOPIC DESCRIPTION Slides are reviewed. GROSS DESCRIPTION A. Received in formalin in a container labeled with the patient's name, date of , and with no further designation are 2 separate discoid placentas connected by thick membranes. 1 disc exhibits a clamped umbilical cord and is arbitrarily designated as placenta A, and the second has no clamp on the umbilical cord and is arbitrarily designated as placenta B. The specimen is 35 x 17 x 2.5 cm overall. Placenta A: 17 x 16.5 x 2.5 cm with a trimmed weight of 451.8 g. The eccentrically located, clamped, and white-hector umbilical cord exhibits 3 vessels and is 34 cm in length by 1.3 cm in diameter. There are approximately 8 coils per 10 cm. The membranes are hector-pink with a 100% marginal insertion. The dividing membranes attach at the periphery along approximately 10% of the edge. The surface is blue-gayle with prominent vasculature and multiple white-hector foci of possible subchorionic fibrin ranging from 0.8 to 3.0 cm in greatest dimension (comprising less than 5% of the surface). The maternal surface displays red-gayle cotyledons that appear complete with a moderate amount of easily removed blood clot material. Serial sections reveal red, spongy and congested surfaces. Placenta B: 18 x 16.5 x 2.5 cm with a trimmed weight of 452.3 g. The eccentrically located white-hector umbilical cord exhibits 3 vessels and is 39.5 cm in length by 1.2 cm in diameter. There are approximately 6 coils per 10 cm. The membranes are hector-pink, partially stripped, and appear to exhibit a 100% marginal attachment site. The dividing membranes are attached to approximately 50% of the periphery of placenta B. The surface is blue-gayle with prominent vasculature and multiple white-hector foci of possible subchorionic fibrin ranging from 0.3 to 1.3 cm in greatest dimension (comprising less than 2% of the surface). The maternal surface displays red-brown cotyledons that appear predominantly complete with a moderate amount of easily removed blood clot material. There are multiple hector and rubbery discolored foci ranging from 0.5 x 0.5 cm to 2.5 x 2.0 cm. Sectioning reveals multiple (greater than 10) white-hector, rubbery, and irregular foci scattered throughout the parenchymal surfaces, and corresponding to the discolored areas identified at the maternal surface. These areas comprise approximately 7% of the parenchymal surfaces. The remaining cut surfaces are red, spongy and congested. M1 Armor Crewman sections:A1. Placenta A umbilical cord and membrane rollA2. Placenta A full-thickness section with possible subchorionic fibrinA3. Placenta A full-thickness sectionA4. Dividing membranes with insertion into membranes between 2 placental discsA5. Placenta B umbilical cord and membrane rollA6. Placenta B full-thickness section with possible subchorionic fibrinA7. Placenta B full-thickness section with discolored focus abutting maternal surfaceA8. Placenta B rubbery focus to adjacent unremarkable parenchyma [facility] 11-15-2024 CPT:32155q2
[2024-11-15] MEDS: Acetaminophen 500 MG Tablet 1000 MG PO ×3 (04:02→17:10)
[2024-11-15 06:30] LABS: Hematocrit 25.3 % (37-47); Hemoglobin 8.1 g/dL (12.0-15.0); Mean Corpuscular Hgb 26.7 pg (27.0-32.0); Mean Corpuscular Volume 83.5 fL (81-99); Mean Platelet Vol. 11.9 fl (6.2-12.0); Platelet Count 184 K/mm3 (150-450); RBC Distribution Width CV 15.6 % (11.6-14.6); RBC Distribution Width SD 47.9 fl (35.1-43.9); Red Blood Count 3.03 M/mm3 (4.2-5.4)
[2024-11-15] MEDS: 0.9% Saline Lock 10 ML Syringe IV ×3 (08:13→20:48)
[2024-11-15] MEDS: Senna/Docusate Sodium 1 Tablet PO (10:50)
--- NOTE | 2024-11-15 13:32 | PCM.PN.OB ---
Subjective Subjective Patient doing well without complaints. Tolerating PO. Ambulating and voiding without difficulty. feeding well. Denies chest pain, shortness of breath, calf pain/swelling, fevers, chills, lightheadedness. Objective Data Objective Data Vital Signs: Vital Signs Temp Pulse Resp BP Pulse Ox O2 Del Method 98.0 F 59 L 17 118/90 H 96 Room Air 11/15/24 13:04 11/15/24 13:04 11/15/24 13:04 11/15/24 13:04 11/15/24 08:06 11/15/24 13:04 Oxygen Delivery Method Room Air Weight: 170 lb Body Mass Index (BMI) 30.1 Intake & Output: Intake and Output for Last 24 Hours 11/13/24 11/14/24 11/15/24 23:59 23:59 23:59 Intake Total 1056 / 1056 2306.5 / 2306.5 Output Total 1200 / 1200 Balance 1056 / 1056 1106.5 / 1106.5 Lab / Micro Data 11/15/24 06:10 Labs: Laboratory Results - last 24 hr 11/14/24 21:30: WBC 10.3, RBC 3.95 L, Hgb 10.4 L, Hct 32.1 L, MCV 81.3, MCH 26.3 L, MCHC 32.4, RDW Std Deviation 46.2 H, RDW Coeff of Daryl 15.5 H, Plt Count 227, MPV 12.5 H, Immature Gran % (Auto) 1.300 H, Neut % (Auto) 83.3 H, Lymph % (Auto) 9.5 L, [place] % (Auto) 5.2, Eos % (Auto) 0.1, Baso % (Auto) 0.6, Absolute Neuts (auto) 8.6 H, Absolute Lymphs (auto) 0.98, Nucleated RBC % 0.2, Syphilis Total Ab Nonreactive, Blood Type O POSITIVE, Antibody Screen NEGATIVE 11/15/24 06:10: WBC 13.0 H, RBC 3.03 L, Hgb 8.1 L, Hct 25.3 L, MCV 83.5, MCH 26.7 L, MCHC 32.0, RDW Std Deviation 47.9 H, RDW Coeff of Daryl 15.6 H, Plt Count 184, MPV 11.9 ROS Constitutional Constitutional: Reports systems reviewed and no addt'l complaints, except as documented Cardiovascular Cardiovascular: Reports systems reviewed and no addt'l complaints, except as documented Respiratory/Chest Respiratory/Chest: Reports systems reviewed and no addt'l complaints, except as documented Gastrointestinal Gastrointestinal: Reports systems reviewed and no addt'l complaints, except as documented Physical Exam Const alert, oriented x3 and no apparent distress HEENT Head and Scalp: atraumatic Resp normal respiratory effort GI soft to palpation and non-tender Inspection: incision intact, healing well and drainage (none) Bimanual Exam - Vag & Uterus: uterus non-tender Uterus Palpation: uterus fundus firm (below Umbilicus) Assessment & Plan (1) Status post section: COMMENT: JORDY chaves. (Ashlyn brejason) PLAN: Plan s/p LTCS PPD # 1 1. routine post care 2. breast feeding- support given 3. rh positive 4. rubella immune
--- NOTE | 2024-11-15 13:37 | NURSING ---
Adjusted dates of surgery to 11/14/24, the dates were incorrectly documented.
[2024-11-16] MEDS: Acetaminophen 500 MG Tablet 1000 MG PO ×3 (00:05→12:38)
[2024-11-16 02:30] VITALS: BP 101/65; PULSE 63; RESP 16; TEMP 36.5; O2SAT 98
[2024-11-16] MEDS: Ibuprofen 600 MG Tablet PO ×3 (03:26→16:10)
[2024-11-16 08:30] VITALS: BP 106/67; PULSE 64; RESP 16; TEMP 36.6; O2SAT 97
[2024-11-16] MEDS: Senna/Docusate Sodium 1 Tablet PO (09:52)
--- NOTE | 2024-11-16 09:54 | PCM.PN.OB ---
Subjective Subjective Patient doing well without complaints. Tolerating PO. Ambulating and voiding without difficulty. infant feeding well. Denies chest pain, shortness of breath, calf pain/swelling, fevers, chills, lightheadedness. Objective Data Objective Data Vital Signs: Vital Signs Temp Pulse Resp BP Pulse Ox O2 Del Method 97.9 F 64 16 106/67 97 Room Air 11/16/24 08:30 11/16/24 08:30 11/16/24 08:30 11/16/24 08:30 11/16/24 08:30 11/16/24 08:30 Oxygen Delivery Method Room Air Weight: 170 lb Body Mass Index (BMI) 30.1 Intake & Output: Intake and Output for Last 24 Hours 11/14/24 11/15/24 11/16/24 23:59 23:59 23:59 Intake Total 1056 / 1056 2306.5 / 2306.5 Output Total 1450 / 1450 800 / 800 Balance 1056 / 1056 856.5 / 856.5 -800 / -800 Lab / Micro Data 11/15/24 06:10 Labs: Laboratory Results - last 24 hr 11/14/24 21:30: WBC 10.3, RBC 3.95 L, Hgb 10.4 L, Hct 32.1 L, MCV 81.3, MCH 26.3 L, MCHC 32.4, RDW Std Deviation 46.2 H, RDW Coeff of Daryl 15.5 H, Plt Count 227, MPV 12.5 H, Immature Gran % (Auto) 1.300 H, Neut % (Auto) 83.3 H, Lymph % (Auto) 9.5 L, [place] % (Auto) 5.2, Eos % (Auto) 0.1, Baso % (Auto) 0.6, Absolute Neuts (auto) 8.6 H, Absolute Lymphs (auto) 0.98, Nucleated RBC % 0.2, Syphilis Total Ab Nonreactive, Blood Type O POSITIVE, Antibody Screen NEGATIVE 11/15/24 06:10: WBC 13.0 H, RBC 3.03 L, Hgb 8.1 L, Hct 25.3 L, MCV 83.5, MCH 26.7 L, MCHC 32.0, RDW Std Deviation 47.9 H, RDW Coeff of Daryl 15.6 H, Plt Count 184, MPV 11.9 ROS Constitutional Constitutional: Reports systems reviewed and no addt'l complaints, except as documented Cardiovascular Cardiovascular: Reports systems reviewed and no addt'l complaints, except as documented Respiratory/Chest Respiratory/Chest: Reports systems reviewed and no addt'l complaints, except as documented Gastrointestinal Gastrointestinal: Reports systems reviewed and no addt'l complaints, except as documented Physical Exam Const alert, oriented x3 and no apparent distress HEENT Head and Scalp: atraumatic Resp normal respiratory effort GI soft to palpation and non-tender Inspection: incision intact, healing well and drainage (none) Bimanual Exam - Vag & Uterus: uterus non-tender Uterus Palpation: uterus fundus firm (below Umbilicus) Assessment & Plan (1) Status post section: COMMENT: JORDY chaves. (Ashlyn breech) PLAN: Plan s/p LTCS PPD # 2 1. routine post care 2. breast feeding- support given 3. rh positive 4. rubella immune
[2024-11-16] MEDS: Phenazopyridine 95 MG Tablet PO (12:39)
[2024-11-16 14:30] VITALS: BP 109/73; PULSE 71; RESP 16; TEMP 36.8; O2SAT 100
--- NOTE | 2024-11-21 15:07 | NURSING ---
Follow up phone call made. Patient states she is doing well. States that both girls are in the hospital. Darya had to be admitted for phototherapy and Ashlyn's ECHO came back normal. States her pain is minimal and bleeding is just about done. Denies any headaches, visual disturbances, or baby blues. Denies any questions or concerns at this time.
== END 2024-11-16 16:15 | disposition home or self-care (01) | DRG 540 ==
LOC: WPOUT 21:17 → WP 21:17
PROVIDERS: Admitting Provider Obstetrics & Gynecology; PCP Preventive Medicine Occupational Medicine; Referring Provider Obstetrics & Gynecology; Visit Provider Obstetrics & Gynecology
DX: O32.1XX2 Maternal care for breech presentation, fetus 2 (principal); O60.14X1 Preterm labor third trimester with preterm delivery third trimester, fetus 1; Z37.2 Twins, both liveborn; K90.0 Celiac disease; O99.62 Diseases of the digestive system complicating childbirth; Z79.82 Long term (current) use of aspirin; O69.2XX0 Labor and delivery complicated by other cord entanglement, with compression, not applicable or unspecified; Z3A.35 35 weeks gestation of pregnancy; O99.814 Abnormal glucose complicating childbirth; O30.043 Twin pregnancy, dichorionic/diamniotic, third trimester; Z83.2 Family history of diseases of the blood and blood-forming organs and certain disorders involving the immune mechanism; O99.02 Anemia complicating childbirth; O60.14X2 Preterm labor third trimester with preterm delivery third trimester, fetus 2
CPT/HCPCS: 59025; 59050; 85025; 85027; 86780; 86850; 86900; 86901; 87081; 88307; 99221; A4216; G0378; J2405

== ENCOUNTER → 2024-12-26 | Outpatient (CLI) | payer MEDICAID, SELFPAY ==
[2024-12-29 21:48] LABS: HPV Reflexed? NOT INDICATED
== END | disposition home or self-care (01) ==
LOC: LABSPEC 11:52
PROVIDERS: PCP Preventive Medicine Occupational Medicine; Referring Provider Obstetrics & Gynecology; Visit Provider Obstetrics & Gynecology
DX: Z12.4 Encounter for screening for malignant neoplasm of cervix (principal)
CPT/HCPCS: 88175; G0145

== ENCOUNTER → 2025-05-22 | Outpatient (CLI) | payer MEDICAID, SELFPAY | END | disposition home or self-care (01) | LOC: LABSPEC 16:34 | PROVIDERS: PCP Preventive Medicine Occupational Medicine; Visit Provider Nurse Practitioner Women's Health | DX: Z12.4 Encounter for screening for malignant neoplasm of cervix (principal); R87.612 Low grade squamous intraepithelial lesion on cytologic smear of cervix (LGSIL) | CPT/HCPCS: 88175; G0145 ==

== ENCOUNTER → 2025-06-03 | Outpatient (CLI) | payer MEDICAID, SELFPAY ==
--- NOTE | 2025-06-03 15:40 | US_ITS ---
PROCEDURE: PELVIC W/ TRANSVAGINAL 06/03/2025 REASON FOR EXAM: PAIN OVER C SECTION SCAR TECHNIQUE: Procedure Code: [id number] Modality: US Procedure: PELVIC W/ TRANSVAGINAL COMPARISON: None. FINDINGS: Uterus: The uterus measures 7.5 x 4.5 2.8 cm. Homogenous appearance without evidence of discrete cyst, echogenic calculi, or mass. The endometrial stripe measures 4 mm. Multiple simple nabothian cysts visualized in the cervix. Right ovary: The right ovary is normal in size measuring 2.1 x 1.7 x 1.2 cm. No suspicious masses. Blood flow to the adnexa is normal with arterial and venous waveforms documented. Left ovary: The left ovary is normal in size measuring 2.5 x 1.3 x 1.2 cm. No suspicious masses. Blood flow to the adnexa is normal with arterial and venous waveforms documented. BLADDER: The bladder wall measures less than 3 mm. The ureteral jets were notseen. Prevoid bladder volume is 112.7 ml. No ascites. US/Pelvic w/ Transvaginal IMPRESSION: 1. No evidence of acute ovarian torsion. 2. Normal sonographic evaluation of the uterus and bilateral ovaries. Reading Location: [id number]
--- OUTSIDE RECORDS SUMMARY | 2025-06-03 19:54 | XMS RPT_ITS | CCD ---
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 tolerance complicating ; childbirth; or the puerperium (20 sources) Abnormal glucose tolerance in mother complicating , childbirth AND/OR puerperium; Translations: [Abnormal glucose complicating ] 03-19-2022 Episodic Comment on above: normal 3gtt Disorders of teeth and jaw (1 source) Toothache; Translations: [Other specified disorders of teeth and supporting structures] Episodic Early or threatened labor (19 sources) False labor before 37 completed weeks of gestation; Translations: [False labor before 37 completed weeks of gestation, unspecified trimester] Onset: 12-02-2024 09-03-2022 Episodic Fever of unknown origin (1 source) Low grade pyrexia; Translations: [Fever, unspecified] Episodic Fluid and electrolyte disorders (17 sources) Acute hypokalemia; Translations: [Hypokalemia] 08-12-2022 Episodic Genitourinary symptoms and ill-defined conditions (2 sources) Frequency of micturition; Translations: [Frequency of micturition] Onset: 12-02-2023 Episodic Headache; including migraine (3 sources) Migraine; Translations: [Migraine with aura] 08-11-2021 Chronic Headache; including migraine (7 sources) Headache; Translations: [Headache, unspecified headache type] Onset: 01-31-2017 01-31-2017 Episodic Immunizations and screening for infectious disease (1 source) Contact with and (suspected) exposure to other viral communicable diseases; Translations: [Contact with or exposure to other viral diseases] 08-09-2024 Episodic Menstrual disorders (20 sources) Secondary physiologic amenorrhea; Translations: [Irregular periods] Onset: 01-31-2017 01-31-2017 Chronic Mood disorders (17 sources) Recurrent major depressive episodes, moderate ; Translations: [Major depressive disorder] Onset: 05-10-2018 05-16-2019 Chronic Mycoses (20 sources) Candidiasis of vagina; Translations: [Candidiasis of vagina] Episodic Nausea and vomiting (18 sources) Nausea; Translations: [Nausea] Episodic Nonmalignant breast conditions (10 sources) Fibrocystic change of left breast; Translations: [Diffuse cystic mastopathy of left breast] Onset: 01-09-2016 Resolved: 01-07-2017 01-21-2017 Chronic Other complications of (20 sources) Anemia of ; Translations: [Anemia complicating , unspecified trimester] 09-06-2024 Chronic Comment on above: OTC Fe Daily Other complications of (2 sources) Anemia complicating , unspecified trimester; Translations: [Anemia complicating , unspecified trimester] Onset: 11-14-2024 Chronic Other complications of (20 sources) High risk ; Translations: [Supervision of high risk , unspecified, unspecified trimester] 03-19-2022 Episodic Comment on above: PRR, , BERNADETTE , girls Darya, Jennifer PC: [facility], BF: Drake PRR BERNADETTE 03/21/20 , girl River BF Gordon Other complications of (20 sources) Abdominal pain in ; Translations: [Other specified related conditions, unspecified trimester] 03-07-2020 Episodic Comment on above: seen 02/24 in ER and triage, nl ct scan, reactive nst, fu in office as scheduled Other complications of (20 sources) Supervision of high risk , unspecified, unspecified trimester; Translations: [Supervision of unspecified high-risk ] Onset: 11-17-2024 Episodic Other complications of (20 sources) Reduced movement; Translations: [Decreased movements, unspecified trimester, not applicable or unspecified] 07-05-2022 Episodic Other complications of (20 sources) Decreased movements, unspecified trimester, not applicable or unspecified; Translations: [Decreased movements, affecting management of mother, unspecified as to episode of care] Episodic Other complications of (18 sources) Disease caused by 2019-nCoV; Translations: [Other viral diseases complicating , unspecified trimester] 08-05-2022 Episodic Comment on above: asa 81mg daily, grow th US @ 32 & 36 wks, 09/27 nl growth EFW 2744GM 40th% Other complications of (1 source) Dehydration; Translations: [Endocrine, nutritional and metabolic diseases complicating , unspecified trimester] Episodic Other complications of (20 sources) Other viral diseases complicating , unspecified trimester; Translations: [Other viral diseases in the mother, antepartum condition or complication] 08-10-2022 Episodic Other complications of (1 source) Mild hyperemesis gravidarum; Translations: [Hyperemesis gravidarum] Onset: 05-08-2024 Episodic Other complications of (1 source) Supervision of other high risk pregnancies, third trimester; Translations: [Supervision of other high risk pregnancies, third trimester] Onset: 12-05-2024 Episodic Other ear and sense organ disorders (2 sources) Otalgia, left ear; Translations: [Otalgia, unspecified] Onset: 11-08-2024 11-08-2024 Episodic Other female genital disorders (1 source) Abnormal uterine and vaginal bleeding, unspecified; Translations: [Abnormal uterine and vaginal bleeding, unspecified] Onset: 11-06-2024 Chronic Other female genital disorders (20 sources) History of past delivery; Translations: [Status post vaginal delivery] 10-17-2022 Episodic Comment on above: baby girl Ember- 10/02 11/23 JV Other gastrointestinal disorders (20 sources) Celiac disease; Translations: [Celiac disease] 10-17-2013 Chronic Comment on above: gluten free diet Other gastrointestinal disorders (20 sources) Celiac disease; Translations: [Celiac disease] Onset: 11-14-2024 Chronic Other lower respiratory disease (1 source) Cough; Translations: [Acute cough] 08-09-2024 Episodic Other and delivery including normal (20 sources) ; Translations: [Encounter for supervision of normal , unspecified, unspecified trimester] Onset: 05-08-2024 Episodic Comment on above: growths q4 at 24 wee ks. NSTs at 36weeks on L&D. Prior carrier test ing done: negative. NIPT low risk. nl anatomy MFM consult growths q4 at 24 wee ks. NSTs at 36weeks on L&D. nl growth. baby B breech. Other screening for suspected conditions (not mental disorders or infectious disease) (2 sources) Encounter for screening for malignant neoplasm of cervix; Translations: [Encounter for screening for diabetes mellitus] Onset: 09-20-2024 Episodic Other upper respiratory disease (1 source) Nasal congestion; Translations: [Nasal congestion] 11-08-2024 Episodic Other upper respiratory disease (1 source) Nasal congestion; Translations: [Nasal congestion] Onset: 11-08-2024 Episodic Other upper respiratory infections (3 sources) Acute upper respiratory infection; Translations: [Acute upper respiratory infection, unspecified] Episodic Otitis media and related conditions (2 sources) Acute left otitis media; Translations: [Otitis media, unspecified, left ear] Onset: 11-08-2024 11-08-2024 Episodic Personality disorders (1 source) Personality disorder 08-10-2021 Chronic Polyhydramnios and other problems of amniotic cavity (20 sources) Amniotic fluid leaking; Translations: [Premature rupture of membranes, unspecified as to length of time between rupture and onset of labor, unspecified weeks of gestation] 03-07-2020 Episodic Comment on above: Seen in triage for L OF on 02/26. Ftp. ROM negative. Residual codes; unclassified (1 source) History of clinical finding in subject; Translations: [Personal history of other specified conditions] Episodic Residual codes; unclassified (14 sources) H/O: 1 miscarriage; Translations: [Personal history of other complications of , childbirth and the puerperium] 04-16-2022 Episodic Residual codes; unclassified (1 source) Personal history of other specified conditions; Translations: [Cannabis abuse, in remission] Episodic Residual codes; unclassified (4 sources) Personal history of other complications of , childbirth and the puerperium; Translations: [Personal history of other genital system and obstetric disorders] Episodic Residual codes; unclassified (1 source) Influenza-like symptoms; Translations: [Other general symptoms and signs] Episodic Residual codes; unclassified (1 source) 8 weeks gestation of ; Translations: [8 weeks gestation of ] Onset: 05-08-2024 Episodic Residual codes; unclassified (20 sources) FH: Hemophilia; Translations: [Family history of diseases of the blood and blood-forming organs and certain disorders involving the immune mechanism] 05-01-2024 Episodic Comment on above: maternal grandfather Residual codes; unclassified (10 sources) H/O: miscarriage; Translations: [Personal history of other complications of , childbirth and the puerperium] 04-16-2022 Episodic Comment on above: 2017 @ 7 weeks gesta tion Residual codes; unclassified (7 sources) Gestation period, 30 weeks; Translations: [30 weeks gestation of ] 10-17-2024 Episodic Residual codes; unclassified (2 sources) Family history of diseases of the blood and blood-forming organs and certain disorders involving the immune mechanism; Translations: [Family history of diseases of the blood and blood-forming organs and certain disorders involving the immune mechanism] Onset: 11-14-2024 Episodic Residual codes; unclassified (2 sources) 35 weeks gestation of ; Translations: [35 weeks gestation of ] Onset: 11-14-2024 Episodic Residual codes; unclassified (1 source) History of uterine scar from previous surgery; Translations: [History of uterine scar from previous surgery] Onset: 12-05-2024 Episodic Residual codes; unclassified (1 source) 31 weeks gestation of ; Translations: [31 weeks gestation of ] Onset: 10-17-2024 Episodic Screening and history of mental health and substance abuse codes (20 sources) H/O: psychiatric disorder; Translations: [Personal history of other mental and behavioral disorders] Onset: 11-14-2024 05-01-2024 Episodic Comment on above: 2018 Substance-related disorders (20 sources) History of clinical finding in subject; Translations: [History of marijuana use] Chronic Comment on above: Positive tox screen 08/27/19.Random tox screen Neg tox 01/25/2020 Substance-related disorders (20 sources) Marijuana user; Translations: [Cannabis use, unspecified, uncomplicated] Onset: 11-14-2024 05-01-2024 Episodic Comment on above: Last use October 2023 Unclassified (5 sources) Venereal disease screening ; Translations: [Encounter for screening for infections with a predominantly sexual mode of transmission] Onset: 01-31-2017 01-31-2017 Urinary tract infections (20 sources) Urinary tract infectious disease; Translations: [Urinary tract infection, site not specified] 03-19-2022 Episodic Past or Other Problems Problem Classification Problem Date Documented Da te Episodic/Chronic Nonmalignant breast conditions (8 sources) Breast lump; Translations: [Unspecified lump in unspecified breast] Onset: 09-12-2015 Resolved: 08-23-2019 01-09-2016 Episodic Other injuries and conditions due to external causes (1 source) Unspecified injury of right lower leg, initial encounter; Translations: [Injury of right knee, initial encounter] Onset: 11-21-2023 Episodic Other non-traumatic joint disorders (1 source) Pain in right knee; Translations: [Acute pain of right knee] Onset: 11-21-2023 Episodic Residual codes; unclassified (1 source) 25 weeks gestation of ; Translations: [25 weeks gestation of ] Onset: 09-05-2024 Episodic Results Test Name Value Interpretation Reference Range Facility PAP I-G w/rfx hrHPV-Aptimaon 12-28-2024 ADEQ Comment Normal . [facility] Comment on above: Order Comment: Speci men Comment: [id number] Specimen Comment: No. of containers..01 ThinPrep Vial Result Comment: Spec imen processed and examined but unsatisfactory for evaluation of epithelial abnormality because of insufficient cellularity. Performed By: #### L 7400.0353 #### [facility] [address] [place], [address] COMM . Normal . [facility] Comment on above: Order Comment: Speci men Comment: [id number] Specimen Comment: No. of containers..01 ThinPrep Vial Performed By: #### L 7400.0353 #### [facility] [address] [place], [address] COMMENT Comment Normal . [facility] Comment on above: Order Comment: Speci men Comment: [id number] Specimen Comment: No. of containers..01 ThinPrep Vial Result Comment: This liquid based ThinPrep(R) pap test was screened with the use of an image guided system. Performed By: #### L 7400.0353 #### [facility] [address] [place], [address] DIAG Comment Normal . [facility] Comment on above: Order Comment: Speci men Comment: [id number] Specimen Comment: No. of containers..01 ThinPrep Vial Result Comment: UNSA TISFACTORY FOR EVALUATION. Performed By: #### L 7400.0353 #### [facility] [address] [place], [address] HPV RFLX Comment Normal . [facility] Comment on above: Order Comment: Speci men Comment: [id number] Specimen Comment: No. of containers..01 ThinPrep Vial Result Comment: The HPV DNA reflex criteria were not met with this specimen result therefore, no HPV testing was performed. Performed at: [id number] Machine Runner: Steffanie Clarke MD, Phone: [phone] Performed By: #### L 7400.0353 #### [facility] [address] [place], [place], [address] PAPSMR Comment Normal . [facility] Comment on above: Order Comment: Speci men Comment: [id number] Specimen Comment: No. of containers..01 ThinPrep Vial Result Comment: The Pap smear is a screening test designed to aid in the detection of premalignant and malignant conditions of the uterine cervix. It is not a diagnostic procedure and should not be used as the sole means of detecting cervical cancer. Both false-positive and false-negative reports do occur. Performed By: #### Hina 7400.0353 #### [facility] [address] [place], [address] PERFORM Comment Normal . [facility] Comment on above: Order Comment: Speci men Comment: [id number] Specimen Comment: No. of containers..01 ThinPrep Vial Result Comment: Darlin Preston, Chemical Processing Technician (ASCP) Performed By: #### L 7400.0353 #### [facility] [address] [place], [address] SIGN Comment Normal . [facility] Comment on above: Order Comment: Speci men Comment: [id number] Specimen Comment: No. of containers..01 ThinPrep Vial Result Comment: Chinmay Paiz MD, Pathologist Performed By: #### L 7400.0353 #### [facility] [address] [place], [address] Cervical or vagninal specime n microscopic examination by cytology stain (reported asOrdered By: Ramandeep Hinds on 12-26-2024 Cytology report Cyto stain Doc (Cvx/Vag) Comment . [facility] Comment on above: The Pap smear is a s creening test designed to aid in thedetection of premalignant and malignant conditions of theuterine cervix. It is not a diagnostic procedure andshould not be used as the sole means of detecting cervicalcancer. Both false-positive and false-negative reports dooccur. Laboratory - CytologyOrdered By: Ramandeep Hinds on 12-26-2024 Chemical Processing Technician Cyto stain Nom (Cvx/Vag) [ID] Comment . [facility] Comment on above: Kanchan Preston, Cyto logist (ASCP) Pathologist Cyto stain Nom (Cvx/Vag) [ID] Comment . [facility] Comment on above: Kathy Paiz MD, P athologist Laboratory - Miscellaneous t estsOrdered By: Ramandeep Hinds on 12-26-2024 Service comment (Unsp spec) [Interp] . . [facility] No Panel InformationOrdered By: Ramandeep Hinds on 12-26-2024 Pap Smear Specimen Adequacy Comment . [facility] Comment on above: Specimen processed a nd examined but unsatisfactory for evaluation ofepithelial abnormality because of insufficient cellularity. Patient Accounts Manager Office Visit Reporton 12-26-2024 Patient Accounts Manager Office Visit Report [facility] [address], [address] [place] [address] OFFICE VISIT Date of Service: 12/26/24 MR#: [id number] Acct: [id number] Name: DARRYL BUI Rep #: [id number] : 2000 Provider: Dr. Ramandeep Guillen DO Age/Sex: 24/F Location: [facility] Status: Signed Intake Vital Signs 11/14/24 21:18 11/28/24 15:42 12/26/24 10:18 12/26/24 10:20 Height 5 ft 3 in 5 ft 3 in 5 ft 3 in 5 ft 3 in Weight: 134 lb BMI 23.7 BP 112/72 Intake Visit Reasons: visit (obstetrics) Compressor House Operator Required: No Is patient in pain?: No Allergies gluten Allergy (Severe, Verified 11/28/24 15:28) Abd cramps/diarrhea amoxicillin Allergy (Mild, Verified 11/28/24 15:28) Rash penicillin G Allergy (Mild, Verified 11/28/24 15:28) Rash pomegranate Allergy (Verified 11/28/24 15:28) Anaphylaxis Medications ???Medication ???Instructions ???Recorded ???Confirmed ???Type etonogestrel 68 mg subdermal 1 implant subdermal ONCE 11/28/24 12/26/24 [facility] Twin History of marijuana use Trauma Migraine Autoimmune disease Family history of hemophilia History of suicidal ideation Anxiety and depression Surgical History Status post vaginal delivery Status post vaginal delivery H/O breast surgery Family History Mother Arthritis Fibromyalgia Father Epilepsy Social History adopted: No household members: children number of children: 4 current occupational status: employed current occupation: [employer] current occupational exposures/hazards: No pets and animals: No history of recent travel: Yes ([place] - Mar 2024) out of state: Yes out of country: No sexually active: Yes Smoking Status: Never smoker alcohol intake: never substance use type: marijuana diet: gluten free well-balanced diet: daily or most days caffeine: Yes Type: coffee Number of servings: 1 eating out: rarely or never during the past year weight has: remained stable what type of physical activity do you participate in: walking frequency: 3-4 times per week duration: < 15 minutes/day kyra/tenriism: Presybeterian seatbelt use: always do you feel safe at home: Yes additional social history: BF: Drake - [employer] History 4 Elective abortions Hx Para 3 Spontaneous abortions 1 Hx # Term Pregnancies 1 Ectopic pregnancies Hx # Pregnancies 1 Multiple births 1 # of living children 4 Past Pregnancies Del. Date Name GA/Weeks Outcome Route Bth Weight Infant Gen Labor Lgth Anesthesia Del Locatn Provider FOB Unknown 2016 miscarriage spontaneous 03/15/20 [place] 39 live - full term 7lbs 12oz Female none [facility] 10/16/22 Ember 38 live - full term 7lbs 7.4oz Female none [facility] Elenita Angulo 11/14/24 Darya 35 live - 5lbs 8oz Female spinal [facility] JSina Juan 11/14/24 Jennifer 35 live - 5lbs 2oz Female spinal [facility] JV BF Drake Delivery Date: 03/15/20 Last Updated by: Shital Loving no complications Delivery Date: 10/16/22 Last Updated by: Eun Griffith [place] Delivery Date: 11/14/24 Last Updated by: Diana Zuniga RN Transferred to [place] Depression Screen PHQ-2/9 PHQ-2 Over the last 2 weeks, how often have you been bothered by any of the following problems? 1. Little interest or pleasure in doing things: not at all 2. Feeling down, depressed, or hopeless: not at all Total score: 0 Post HPI Routine Follow-Up: Details: DARRYL BUI is a 24 year old who presents for her post visit. Infant Feeding: Both Menses resumed: No Pulpotio Bareas since delivery: No Emotional Support: Yes Last Pap:: 2020 Control Method: has nexplanon ROS Const Reports system reviewed and no additional complaints, except as documented GI Reports system reviewed and no additional complaints, except as documented, Denies bloating, Denies constipation, Denies nausea and Denies vomiting Reports system reviewed and no additional complaints, except as documented, Denies abnormal vaginal bleeding, Denies pelvic pain, Denies sexual dysfunction, Denies urinary incontinence, Denies urinary hesitancy, Denies urinary urgency and Denies vaginal discharge Skin/Breast Reports system reviewed and no additional complaints, except as documented and Reports as per HPI Psych Reports as per HPI Exam Const General: cooperative, healthy appearing, comfortable and no (more content not included)... Normal [facility] Patient Accounts Manager Office Visit Reporton 11-28-2024 Patient Accounts Manager Office Visit Report [facility] [address], [address] [place] [address] OFFICE VISIT Date of Service: 11/28/24 MR#: [id number] Acct: [id number] Name: DARRYL BUI Rep #: [id number] : 2000 Provider: Dr. Ramandeep Guillen DO Age/Sex: 24/F Location: [facility] Status: Signed Intake Vital Signs 11/14/24 21:18 11/28/24 15:40 11/28/24 15:42 Height 5 ft 3 in 5 ft 3 in 5 ft 3 in Weight: 134 lb 2 oz BMI 23.7 BP 103/74 Intake Visit Reasons: visit (obstetrics) Chief Complaint: 2w incision check Compressor House Operator Required: No Is patient in pain?: No Allergies gluten Allergy (Severe, Verified 11/28/24 15:28) Abd cramps/diarrhea amoxicillin Allergy (Mild, Verified 11/28/24 15:28) Rash penicillin G Allergy (Mild, Verified 11/28/24 15:28) Rash pomegranate Allergy (Verified 11/28/24 15:28) Anaphylaxis Medications ???Medication ???Instructions ???Recorded ???Confirmed ???Type NK 11/28/24 11/28/24 History etonogestrel 68 mg subdermal 1 implant subdermal ONCE 11/28/24 11/28/24 History implant [facility]Nexplanon) : [facility] Twin History of marijuana use Trauma Migraine Autoimmune disease Family history of hemophilia History of suicidal ideation Anxiety and depression Surgical History Status post vaginal delivery Status post vaginal delivery H/O breast surgery Family History Mother Arthritis Fibromyalgia Father Epilepsy Social History (Updated 11/28/24 @ 15:41 by Eun Griffith) adopted: No household members: children number of children: 4 current occupational status: employed current occupation: [employer] current occupational exposures/hazards: No pets and animals: No history of recent travel: Yes ( - Mar 2024) out of state: Yes out of country: No sexually active: Yes Smoking Status: Never smoker alcohol intake: never substance use type: marijuana diet: gluten free well-balanced diet: daily or most days caffeine: Yes Type: coffee Number of servings: 1 eating out: rarely or never during the past year weight has: remained stable what type of physical activity do you participate in: walking frequency: 3-4 times per week duration: < 15 minutes/day kyra/tenriism: [employer]ian seatbelt use: always do you feel safe at home: Yes additional social history: BF: Drake - [employer] History 4 Elective abortions Hx Para 3 Spontaneous abortions 1 Hx # Term Pregnancies 1 Ectopic pregnancies Hx # Pregnancies 1 Multiple births 1 # of living children 4 Past Pregnancies Del. Date Name GA/Weeks Outcome Route Bth Weight Infant Gen Labor Lgth Anesthesia Del Locatn Provider FOB Unknown 2017 miscarriage spontaneous 03/15/20 [place] 39 live - full term 7lbs 12oz Female none [facility] SE José 10/16/22 Ember 38 live - full term 7lbs 7.4oz Female none [facility] Elenita Angulo 11/14/24 Darya 35 live - 5lbs 8oz Female spinal [facility] JV BF Drake 11/14/24 Jennifer 35 live - 5lbs 2oz Female spinal [facility] JV BF Drake Delivery Date: 03/15/20 Last Updated by: Shital Loving no complications Delivery Date: 10/16/22 Last Updated by: Eun Griffith COVID Delivery Date: 11/14/24 Last Updated by: Diana Zuniga RN Transferred to [place] Depression Screen PHQ-2/9 PHQ-2 Over the last 2 weeks, how often have you been bothered by any of the following problems? 1. Little interest or pleasure in doing things: not at all 2. Feeling down, depressed, or hopeless: not at all Total score: 0 Post HPI Routine Follow-Up: Details: DARRYL BUI is a 24 year old who presents for her2 week post visit, incision check and nexplanon insertion. Infant Feeding: Breast Menses resumed: No Pulpotio Bareas since delivery: No Emotional Support: Yes (however, limited as SONIA is still going to his friend's house and leaving ) Control Method: wants nexplanon today ROS ENT Reports system reviewed and no additional complaints, except as documented Card Reports system reviewed and no additional complaints, except as documented, Denies dyspnea and Denies dyspnea on exertion Resp Denies cough, Denies dyspnea and Denies dyspnea on exertion GI Denies abdominal pain, Denies bloating and Denies change in bowel habits Denies vaginal odor and Denies vaginal pruritus Musc Reports system reviewed and no additional complaints, except as documented Exam Const General: cooperative, healthy appearing and comforta (more content not included)... Normal [facility] Pathology Specimen OBon 052 PATH. Spec OB SEE PATHOLOGY REPORT Normal [facility] Comment on above: Order Comment: PN Result Comment: Spec imen submitted to Anatomical Pathology Department for testing. Performed By: #### B TS, L509.4005, L509.8000, L100.0100, L3890.6100, L3890.6005, L900.0098, L3890.6300 #### [facility] [address] [place], [place], [id number] Rule out Beta Strep (Grp. B) on 11-16-2024 JOJO Group B Beta Streptococcus is not isolated. Normal [facility] Comment on above: Performed By: #### B TS, L509.4005, L509.8000, L100.0100, L3890.6100, L3890.6005, L900.0098, L3890.6300 #### [facility] [address] [place], [place], [id number] CBC-Complete Blood Cnt No Di ffon 11-15-2024 Erythrocyte distribution width (RBC) [Ratio] 15.6 % High 11.6-14.6 [facility] Comment on above: Order Comment: PN Performed By: #### B TS, L509.4005, L509.8000, L100.0100, L3890.6100, L3890.6005, L900.0098, L3890.6300 #### [facility] [address] [place], [place], [id number] Hematocrit (Bld) [Volume fraction] 25.3 % Low 37-47 [facility] Comment on above: Order Comment: PN Performed By: #### B TS, L509.4005, L509.8000, L100.0100, L3890.6100, L3890.6005, L900.0098, L3890.6300 #### [facility] [address] [place], [address] Hemoglobin (Bld) [Mass/Vol] 8.1 g/dL Low 12.0-15.0 [facility] Comment on above: Order Comment: PN Performed By: #### B TS, L509.4005, L509.8000, L100.0100, L3890.6100, L3890.6005, L900.0098, L3890.6300 #### [facility] [address] [place], [address] MCH (RBC) [Entitic mass] 26.7 pg Low 27.0-32.0 [facility] Comment on above: Order Comment: PN Performed By: #### B TS, L509.4005, L509.8000, L100.0100, L3890.6100, L3890.6005, L900.0098, L3890.6300 #### [facility] [address] [place], [address] MCHC (RBC) [Mass/Vol] 32.0 g/dL Normal 32-36 [facility] Comment on above: Order Comment: PN Performed By: #### B TS, L509.4005, L509.8000, L100.0100, L3890.6100, L3890.6005, L900.0098, L3890.6300 #### [facility] [address] [place], [address] MCV (RBC) [Entitic vol] 83.5 fL Normal 81-99 [facility] Comment on above: Order Comment: PN Performed By: #### B TS, L509.4005, L509.8000, L100.0100, L3890.6100, L3890.6005, L900.0098, L3890.6300 #### [facility] [address] [place], [address] Platelet mean volume (Bld) [Entitic vol] 11.9 fL Normal 6.2-12.0 [facility] Comment on above: Order Comment: PN Performed By: #### B TS, L509.4005, L509.8000, L100.0100, L3890.6100, L3890.6005, L900.0098, L3890.6300 #### [facility] [address] [place], [address] Platelets (Bld) [#/Vol] 184 10*3/uL Normal 150-450 [facility] Comment on above: Order Comment: PN Performed By: #### B TS, L509.4005, L509.8000, L100.0100, L3890.6100, L3890.6005, L900.0098, L3890.6300 #### [facility] [address] [place], [address] RBC (Bld) [#/Vol] 3.03 10*6/uL Low 4.2-5.4 [facility] Comment on above: Order Comment: PN Performed By: #### B TS, L509.4005, L509.8000, L100.0100, L3890.6100, L3890.6005, L900.0098, L3890.6300 #### [facility] [address] [place], [address] RDW SD 47.9 fl High 35.1-43.9 [facility] Comment on above: Order Comment: PN Performed By: #### B TS, L509.4005, L509.8000, L100.0100, L3890.6100, L3890.6005, L900.0098, L3890.6300 #### [facility] [address] [place], [address] WBC (Bld) [#/Vol] 13.0 10*3/uL High 4.4-11.0 [facility] Comment on above: Order Comment: PN Performed By: #### B TS, L509.4005, L509.8000, L100.0100, L3890.6100, L3890.6005, L900.0098, L3890.6300 #### [facility] [address] [place], [place], [address] Erythrocyte distribution wid th ratioOrdered By: Ramandeepkwasi Hinds on 11-15-2024 Erythrocyte distribution width (RBC) [Ratio] 15.6 % High 11.6-14.6 [facility] Erythrocyte distribution wid th standard deviationOrdered By: Ramandeepmichael Hinds on 11-15-2024 Erythrocyte distribution width (RBC) [Ratio] 47.9 fl High 35.1-43.9 [facility] Hematocrit Auto (Bld) [Volum e fraction]Ordered By: Ramandeep Hinds on 11-15-2024 Hematocrit (Bld) [Volume fraction] 25.3 % Low 37-47 [facility] Hemoglobin measurementOrdere d By: Ramandeep Hinds on 11-15-2024 Hemoglobin (Bld) [Mass/Vol] 8.1 g/dL Low 12.0-15.0 [facility] MCV (mean corpuscular volume ) determinationOrdered By: Ramandeep Hinds on 11-15-2024 MCV (RBC) [Entitic vol] 83.5 fL 81-99 [facility] Mean corpuscular hemoglobin (MCH) determinationOrdered By: Ramandeep Hinds on 11-15-2024 MCH (RBC) [Entitic mass] 26.7 pg Low 27.0-32.0 [facility] Mean corpuscular hemoglobin concentration (MCHC) determinationOrdered By: Ramandeep Hinds on 11-15-2024 MCHC (RBC) [Mass/Vol] 32.0 g/dL 32-36 [facility] Mean platelet volume determi nationOrdered By: Ramandeep Hinds on 11-15-2024 Platelet mean volume (Bld) [Entitic vol] 11.9 fL 6.2-12.0 [facility] Platelet countOrdered By: Genaro Hinds on 11-15-2024 Platelets (Bld) [#/Vol] 184 10*3/uL 150-450 [facility] RBC Auto (Bld) [#/Vol]Ordere d By: Ramandeep Hinds on 11-15-2024 RBC (Bld) [#/Vol] 3.03 10*6/uL Low 4.2-5.4 [facility] Surgery Specimen Level Von 0 11-15-2024 Surgery Specimen Level V Patient Age/Sex Location Account Attending Physician DARRYL BUI /F [id number] Dr. Ramandeep Ferguson, Elenita Specimen: [id number] Received: 11/15/24 Status: PREETHI Padilla Num: [id number] Spec Type: PLACENTA Subm Dr: Dr. Ramandeep Ferguson, HEADER OPERATION: Primary section PRE-OP DIAGNOSIS: Twins TISSUE SUBMITTED: A- Placenta MICROSCOPIC DIAGNOSIS A. Twin placentas, 35 weeks/4 days, section: * Separate placentas with diamnionic dichorionic partial dividing membrane. * Placenta A: mature placenta, 451.8 grams, with 3 vessel cord and no significant pathologic change. * Placenta B: mature placenta, 452.3 grams, with 3 vessel cord and focal infarction involving less than 7% of the parenchyma. MICROSCOPIC DESCRIPTION Slides are reviewed. GROSS DESCRIPTION A. Received in formalin in a container labeled with the patient's name, date of , and with no further designation are 2 separate discoid placentas connected by thick membranes. 1 disc exhibits a clamped umbilical cord and is arbitrarily designated as placenta A, and the second has no clamp on the umbilical cord and is arbitrarily designated as placenta B. The specimen is 35 x 17 x 2.5 cm overall. Placenta A: 17 x 16.5 x 2.5 cm with a trimmed weight of 451.8 g. The eccentrically located, clamped, and white-hector umbilical cord exhibits 3 vessels and is 34 cm in length by 1.3 cm in diameter. There are approximately 8 coils per 10 cm. The membranes are hector-pink with a 100% marginal insertion. The dividing membranes attach at the periphery along approximately 10% of the edge. The surface is blue-gayle with prominent vasculature and multiple white-hector foci of possible subchorionic fibrin ranging from 0.8 to 3.0 cm in greatest dimension (comprising less than 5% of the surface). The maternal surface displays red-gayle cotyledons that appear complete with a moderate amount of easily removed blood clot material. Serial sections reveal red, spongy and congested surfaces. Placenta B: 18 x 16.5 x 2.5 cm with a trimmed weight of 452.3 g. The eccentrically located white-hector umbilical cord exhibits 3 vessels and is 39.5 cm in length by 1.2 cm in diameter. There are approximately 6 coils per 10 cm. The membranes are hector-pink, partially stripped, and appear to exhibit a 100% marginal attachment site. The dividing membranes are attached to approximately 50% of the periphery of placenta B. The surface is blue-gayle with prominent vasculature and multiple white-hector foci of possible subchorionic fibrin ranging from 0.3 to 1.3 cm in greatest dimension (comprising less than 2% of the surface). The maternal surface displays red-brown cotyledons that appear predominantly complete with a moderate amount of easily removed blood clot material. There are multiple hector and rubbery Patient Age/Sex Location Account Attending Physician DARRYL BUI / WP [id number] Elenita Viramontes discolored foci ranging from 0.5 x 0.5 cm to 2.5 x 2.0 cm. Sectioning reveals multiple (greater than 10) white-hector, rubbery, and irregular foci scattered throughout the parenchymal surfaces, and corresponding to the discolored areas identified at the maternal surface. These areas comprise approximately 7% of the parenchymal surfaces. The remaining cut surfaces are red, spongy and congested. [employer] sections:A1. Placenta A umbilical cord and membrane rollA2. Placenta A full-thickness section with possible subchorionic fibrinA3. Placenta A full-thickness sectionA4. Dividing membranes with insertion into membranes between 2 placental discsA5. Placenta B umbilical cord and membrane rollA6. Placenta B full-thickness section with possible subchorionic fibrinA7. Placenta B full-thickness section with discolored focus abutting maternal surfaceA8. Placenta B rubbery focus to adjacent unremarkable parenchyma [facility] 11-15-2024 CPT:[id number] Patient Age/Sex Location Account Attending Physician DARRYL BUI / WP [id number] Elenita Viramontes -- (more content not included)... Normal [facility] Comment on above: Performed By: #### B TS, L509.4005, L509.8000, L100.0100, L3890.6100, L3890.6005, L900.0098, L3890.6300 #### [facility] [address] [place], [place], [address] White blood cell (WBC) count Ordered By: Ramandeep Hinds on 11-15-2024 WBC (Bld) [#/Vol] 13.0 10*3/uL High 4.4-11.0 [facility] Absolute lymphocyte countOrd ered By: Ramandeep Hinds on 11-14-2024 Lymphocytes Auto (Unsp spec) [#/Vol] 0.98 10*3/uL 0.83-4.51 [facility] Absolute neutrophil countOrd ered By: Ramandeep Hinds on 11-14-2024 Neutrophils (Bld) [#/Vol] 8.6 10*3/uL High 2.0-7.7 [facility] Automated lymphocyte count a s percentage of total leukocytesOrdered By: Ramandeep Regaladokiran on 11-14-2024 Lymphocytes/100 WBC Auto (Unsp spec) 9.5 % Low 19-41 [facility] Basophil percentageOrdered B y: Ramandeep Regaladokiran on 11-14-2024 Basophils/100 WBC (Bld) 0.6 % 0-1 [facility] CBC W/Diff, Automatedon 11-01 Absolute Lymph 0.98 X10 3/uL Normal 0.83-4.51 [facility] Comment on above: Performed By: #### Idris TS, L100.0100 #### [facility] [address] [place], [address] Absolute Neut 8.6 X10 3/uL High 2.0-7.7 [facility] Comment on above: Performed By: #### Idris TS, L100.0100 #### [facility] [address] [place], [address] Basophils/100 WBC (Bld) 0.6 % Normal 0-1 [facility] Comment on above: Performed By: #### Idris TS, L100.0100 #### [facility] [address] [place], [address] Eosinophils/100 WBC (Bld) 0.1 % Normal 0-5 [facility] Comment on above: Performed By: #### Idris TS, L100.0100 #### [facility] [address] [place], [address] Erythrocyte distribution width (RBC) [Ratio] 15.5 % High 11.6-14.6 [facility] Comment on above: Performed By: #### Idris GARCIA, L100.0100 #### [facility] [address] [place], [address] Hematocrit (Bld) [Volume fraction] 32.1 % Low 37-47 [facility] Comment on above: Performed By: #### Idris GARCIA, L100.0100 #### [facility] [address] [place], [address] Hemoglobin (Bld) [Mass/Vol] 10.4 g/dL Low 12.0-15.0 [facility] Comment on above: Performed By: #### Idris GARCIA, L100.0100 #### [facility] [address] [place], [address] IG% 1.300 High 0.0-0.9 [facility] Comment on above: Result Comment: IG% - Immature Granulocytes (promyelocytes, myelocytes and metamyelocytes) > 1% indicates that a LEFT SHIFT is Present. Performed By: #### Idris GARCIA, L100.0100 #### [facility] [address] [place], [address] Lymphocytes/100 WBC (Bld) 9.5 % Low 19-41 [facility] Comment on above: Performed By: #### Idris GARCIA, L100.0100 #### [facility] [address] [place], [address] MCH (RBC) [Entitic mass] 26.3 pg Low 27.0-32.0 [facility] Comment on above: Performed By: #### Idris GARCIA, L100.0100 #### [facility] [address] [place], [address] MCHC (RBC) [Mass/Vol] 32.4 g/dL Normal 32-36 [facility] Comment on above: Performed By: #### Idris GARCIA, L100.0100 #### [facility] [address] [place], [address] MCV (RBC) [Entitic vol] 81.3 fL Normal 81-99 [facility] Comment on above: Performed By: #### Idris GARCIA, L100.0100 #### [facility] [address] [place], [address] Monocytes/100 WBC (Bld) 5.2 % Normal 0-10 [facility] Comment on above: Performed By: #### Idris GARCIA, L100.0100 #### [facility] [address] [place], [address] Neutrophils/100 WBC (Bld) 83.3 % High 47-70 [facility] Comment on above: Performed By: #### Idris GARCIA, L100.0100 #### [facility] [address] [place], [address] Nucleated RBC (Bld) [#/Vol] 0.2 10*3/uL Normal 0-5 [facility] Comment on above: Performed By: #### Idris GARCIA, L100.0100 #### [facility] [address] [place], [address] Platelet mean volume (Bld) [Entitic vol] 12.5 fL High 6.2-12.0 [facility] Comment on above: Performed By: #### Idris GARCIA, L100.0100 #### [facility] [address] [place], [address] Platelets (Bld) [#/Vol] 227 10*3/uL Normal 150-450 [facility] Comment on above: Performed By: #### Idris GARCIA, L100.0100 #### [facility] [address] [place], [address] RBC (Bld) [#/Vol] 3.95 10*6/uL Low 4.2-5.4 [facility] Comment on above: Performed By: #### B TS, L100.0100 #### [facility] [address] [place], [address] RDW SD 46.2 fl High 35.1-43.9 [facility] Comment on above: Performed By: #### B TS, L100.0100 #### [facility] [address] [place], [address] WBC (Bld) [#/Vol] 10.3 10*3/uL Normal 4.4-11.0 [facility] Comment on above: Performed By: #### B TS, L100.0100 #### [facility] [address] [place], [address] Discharge Instructionon 11-01 Discharge Instruction [facility] Medical Records Department [address] [place] [address] Instructions for Home/Discharge Instructions 11/14/24 2350 MR#: [id number] Acct: [id number] Name: DARRYL BUI Rep #: [id number] : 2000 24 From: Ramandeep Ferguson DO PCP: Dr. Fabiola Bearden DO Status:ADM IN Discharge Instructions Diet Discharge Diet: No restrictions DC O2, CPAP, BIPAP needs Home O2 Discharge instructions: No Dressing / Incision Discharge Activity: May Not Drive (for 2 weeks or while taking narcotic pain medications.), May Shower and May Take a Tub Bath (in 7 days.) May resume sexual activity in: 4-6 weeks Weight Bearing Status: Full weight bearing Lifting Restrictions: 20 pounds Dressing / Incision Call your doctor if your incision/area has: Continuous Slow Oozing, Sudden Increased Bleeding, Increased Pain/ Swelling, Increased Redness and Foul Smelling Discharge Call your doctor if you observe: Fever of 101 or Higher and Using more than 1 pad per hour Suture Line Care: Avoid Pulling/Pushing and Avoid Pinching/Bending Cleanse incision/area with: Soap Water and Keep Dressing Clean Dry Follow Up Care Please Follow Up With: Ramandeep Ferguson DO When: Call [phone] to make an appointment for an incision check in 1-2 weeks. Test Results: Test results from this visit will be discussed in further detail at your follow-up appointment, if applicable. Discharge Plan Admission Admit Date/Time: 11/14/24 21:12 Primary Reason for Your Visit: section Attending Provider: Ramandeep Ferguson Primary Care Provider: Fabiola Bearden Discharge Orders/Prescriptions Prescriptions: New ibuprofen 800 mg tablet 800 mg PO Q8H PRN (Reason: pain) Qty: 30 0RF oxycodone-acetaminophen [Percocet] 5-325 mg tablet 1 tab PO Q4H PRN (Reason: pain) 7 Days Qty: 20 0RF Continued DHA 200 mg capsule 1 mg PO DAILY famotidine [Pepcid] 20 mg tablet 20 mg PO DAILY Qty: 30 6RF ferrous sulfate [Feosol] 325 mg (65 mg iron) tablet 325 mg PO DAILY Discontinued aspirin [Aspirin Childrens] 81 mg tablet,chewable 1 tab PO DAILY Referrals / Follow Up: Fabiola Bearden DO [Primary Care Provider] - Disposition Disposition (needs filled in before D/C Order can be placed): Home, Self Care 11/14/24 0279 Ramandeep Ferguson DO CC: Dr. 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 Fabiola Bearden DO Status:ADM IN Location: RS937-2 HPI - General HPI Narrative DARRYL BUI, is a 24 y/o @35 weeks 4 days who presents to [facility] with contractions q 2 minutes. On exam she is noted to be 5 cm dilated with bulging membranes, 85% effaced and -1 station. She is a twin gestation and baby B is breech. She denies loss of fluid, vaginal bleeding, or decreased movement. Maternal Data Information BERNADETTE Calculator Estimated Delivery Date Method Current WG Current Estimate 12/15/24 Ultrasound #1 35w 4d Other Estimates 12/15/24 LMP (Certain) 35w 4d # 2 PFSH PFSH Medical History Twin History of marijuana use Trauma Migraine Autoimmune disease Family history of hemophilia History of suicidal ideation Anxiety and depression Home Medications ???Medication ???Instructions ???Recorded ???Last Taken ???Type docosahexaenoic acid 200 mg 1 mg PO DAILY 05/01/24 11/01/24 08 :00 History capsule ( DHA) famotidine 20 mg tablet (Pepcid) 20 mg PO DAILY #30 tabs 09/05/24 U nknown Rx aspirin 81 mg chewable tablet 1 tab PO DAILY 10/09/24 11/01/24 0 8:00 History (Aspirin Childrens) ferrous sulfate 325 mg (65 mg 325 mg PO DAILY 10/09/24 10/31/24 22:00 History iron) tablet (Feosol) Allergy/AdvReac Type Severity Reaction Status Date / Time gluten Allergy Severe Abd Verified 11/14/24 21:19 cramps/diarrhea amoxicillin Allergy Mild Rash Verified 11/14/24 21:19 penicillin G Allergy Mild Rash Verified 11/14/24 21:19 pomegranate Allergy Anaphylaxis Verified 11/14/24 21:19 Family History Mother Arthritis Fibromyalgia Father Epilepsy Surgical History Status post vaginal delivery Status post vaginal delivery H/O breast surgery Social History adopted: No household members: children number of children: 2 current occupational status: employed current occupation: [employer] current occupational exposures/hazards: No pets and animals: No history of recent travel: Yes ( - Mar 2024) out of state: Yes out of country: No sexually active: Yes Smoking Status: Never smoker alcohol intake: never substance use type: marijuana diet: gluten free well-balanced diet: daily or most days caffeine: Yes Type: coffee Number of servings: 1 eating out: rarely or never during the past year weight has: remained stable what type of physical activity do you participate in: walking frequency: 3-4 times per week duration: < 15 minutes/day 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 Date Name GA/Weeks Outcome Route Bth Weight Infant Gen Labor Lgth Anesthesia Del Locatn Provider FOB Unknown 2017 miscarriage spontaneous 03/15/20 [place] 39 live - full term 7lbs 12oz Female none [facility] M 10/16/22 Ember 38 live - full term 7lbs 7.4oz Female none [facility] Elenita Ferguson Fabiola Delivery Date: 03/15/20 Last Updated by: Shital Loving no complications Delivery Date: 10/16/22 Last Updated by: Eun Griffith COVID Visit Details Expected Delivery Route/Plan Labor Preferences- CB/BF classes: [] labor support person: [] labor intervention preferences: [] pain management options preferred: [] cut cord/dad catch: [] : [] PP control planned: [] discussed possible routes of delivery and associated risks: [] special requests: [] Plans Covid status: [] Flu vaccine: [] Tdap vaccine: declined Rhogam: [] LARC form signed: [] movement and labor precautions reviewed. Problem list reviewed and updated with the most current plan of care details and appropriate orders placed. Relevant counseling for the gestational age provided. Continue routine care and follow up unless otherwise noted in visit notes/problem list details OB Flowsheet Initial Weight: 132 lb Date -???-???-???-???-???-?? ?-???-???-???-???-???-? ??- EGA Weight BP Urine Prot -???-???-???-???-???-?? ?-???-???-???-???-???-? ??- Glucose FHR FuHt (more content not included)... Normal [facility] Immature granulocytes/100 WB C Auto (Bld)Ordered By: Ramandeep Hinds on 11-14-2024 Immature granulocytes/100 WBC (Bld) 1.300 % High 0.0-0.9 [facility] Comment on above: IG% - Immature Granu locytes (promyelocytes, myelocytes and metamyelocytes) > 1% indicates that a LEFT SHIFT is Present. Monocyte percentageOrdered B y: Ramandeep Hinds on 11-14-2024 Monocytes/100 WBC (Bld) 5.2 % 0-10 [facility] Neutrophil percentageOrdered By: Ramandeep Hinds on 11-14-2024 Neutrophils/100 WBC (Bld) 83.3 % High 47-70 [facility] Nucleated red blood cell per centageOrdered By: Ramandeep Hinds on 11-14-2024 Nucleated RBC/100 WBC (Bld) [Ratio] 0.2 % 0-5 [facility] Operative Reporton Operative Report [facility] Medical Records Department [address] [place] [address] Operative Report 11/14/24 2343 MR#: [id number] Acct: [id number] Name: DARRYL BUI Rep #: [id number] : 2000 24 From: Ramandeep Ferguson DO PCP: Dr. Fabiola Bearden, DO Status:ADM IN Location: AA836-8 Assessment Plan (1) Anemia affecting : COMMENT: OTC Fe Daily (2) Abnormal glucose: COMMENT: 3 HR GTT (3) Dichorionic diamniotic twin gestation: COMMENT: growths q4 at 24 weeks. NSTs at 36weeks on L D. nl growth. baby B breech. (4) Family history of hemophilia: COMMENT: maternal grandfather (5) Supervision of high-risk : COMMENT: PRR, , BERNADETTE 12/15/24, girls Jennifer Lackey PC: River Clark BF: Drake Maternal Data Information BERNADETTE Calculator Estimated Delivery Date Method Current WG Current Estimate 12/15/24 Ultrasound #1 35w 4d Other Estimates 12/15/24 LMP (Certain) 35w 4d # 2 Final BERNADETTE: 12/15/24 Final BERNADETTE Source: US <20 weeks Gestational age: 35 weeks 4 days Doctor Who Attended Delivery: Shikha Van Operative Report (OB) Details Procedure Type: low transverse Date of Procedure: 11/14/24 Procedure Start Time: 23:08 Procedure Stop Time: 23:39 Time of Delivery: 23:12 Pre-Operative Diagnosis: Malpresentation and Other (twin gestation, active labor , baby b breech ) Other Pre-Operative diagnosis: none Post-Operative Diagnosis: Same as Pre-operative diagnosis Classification: MONIQUE Type of Anesthesia: Spinal Antibiotic Given: Clindamycin 600mg IV x1 and Gentamicin 1.5mg/kg IV x1 Drain: Soares to straight drain Estimated Blood Loss: 600cc Findings Description of surgery: The patient is a 24 y/o @ 35 weeks 4 days, in active labor with a twin gestation. Baby presenting breech. Spinal anesthesia was placed without difficulty. Soares catheter was placed. The patient was placed in the dorsal supine position with leftward tilt. Patient was prepped and draped in the normal sterile fashion. Pfannenstiel skin incision was made with the scalpel and carried through to the underlying layer of fascia with the scalpel. Fascia was nicked in the midline and the incision extended laterally. The rectus bellies were dissected off superiorly and inferiorly with out complication both sharply and bluntly. The peritoneum was entered digitally. The incision was stretched and a low transverse uterine incision was made with the scalpel. The 's head was delivered atraumatically followed by the anterior and posterior shoulders without complication the rest of the delivered. The cord was clamped and cut and the was handed off to awaiting nurse. The sencond membrane sac was opened with an jodie clamp and clear fluid returned. The 's feet, then torso, and right arm delivered. The was rotated to deliver the left arm and when this delivere the head delivered spontaneously. The placenta was delivered with expression immediately following and was noted to be intact and have a three-vessel cord and the 2 placentas by a membrane. The uterus was exteriorized cleared of all clots and debris, and the incision was closed in a double layer closure using #1 Vicryl and #1 Monocryl. The ovaries and fallopian tubes were noted to be within normal limits. The uterus was returned to the maternal abdomen and gutters were cleared of all clots and debris. The peritoneum was closed with 3- 0 Monocryl in a running fashion. Fascia was closed with 0 PDS in a running fashion. Subcutaneous tissue was copiously irrigated and the skin was closed with 3-0 Monocryl in a subcuticular fashion. Mepilex dressing was applied without complication. Patient was taken to recovery in stable condition. It was discussed with the patient that based on the clinical information obtained during this encounter, combined with her history, at this time I would recommend or repeat for future deliveries if further pregnancies are desired. Surgical findings: viable twin girls darya and Jennifer Presentation: Vertex Amniotic Membrane Rupture Type: Artificial Amniotic Fluid Description: Clear Placental Delivery Description: Expressed Placenta Disposition: [facility] Specimen collected: No Cord Vessel Description: 3 Vessels Cord Entanglement: None Infant A gender: Female (1 minute): 8 (5 minute): 9 Delayed Cord Clamping: Yes Campaign Assistant ice skater: Yes Refueling Rampman: liss Tasks completed by first officer and flight instructor: Hemostasis: Clamp, Hemostasis: Electrocautery and Retracting Additional physical therapist assistant?: No Complications Complications: No Baby B Information Amniotic Membrane Rupture Type: Artificial Presentation: Footling Breech Operative Information Mode of Delivery: Cord Ve (more content not included)... Normal [facility] Syphilis Antibodieson 2024 Syphilis Abs Non-Reactive Normal Nonreactive [facility] Comment on above: Performed By: #### B TS, L509.4005, L509.8000, L100.0100, L3890.6100, L3890.6005, L900.0098, L3890.6300 #### [facility] Laboratory [address] [place], [address] Type AND Screenon 05-14-2025 ABO and Rh group Nom (Bld) Blood group O Rh(D) positive Normal [facility] Comment on above: Order Comment: SC-SE CTION Performed By: #### B TS, L509.4005, L509.8000, L100.0100, L3890.6100, L3890.6005, L900.0098, L3890.6300 #### [facility] [address] [place], [address] Laboratory - Chemistry and C hemistry - challengeOrdered By: Devora Olsen on 11-13-2024 Glucose Ql (U) Negative [facility] Laboratory - UrinalysisOrder ed By: Devora Olsen on 11-13-2024 Protein Ql (U) Negative [facility] Patient Accounts Manager Office Visit Reporton 11-13-2024 Patient Accounts Manager Office Visit Report [facility] [address], [address] [place] [address] OFFICE VISIT Date of Service: 11/13/24 MR#: [id number] Acct: [id number] Name: DARRYL BUI Rep #: [id number] : 2000 Provider: Dr. Devora scott MD Age/Sex: 24/F Location: [facility] Status: Signed Intake Vital Signs 06/07/24 15:41 11/07/24 22:44 11/13/24 15:17 Height 5 ft 3 in 5 ft 3 in 5 ft 3 in Weight: 171 lb 6 oz BMI 30.3 BP 120/78 Intake Visit Reasons: 34 WK OB *TWINS* Compressor House Operator Required: No Allergies gluten Allergy (Severe, Verified 11/13/24 15:22) Abd cramps/diarrhea amoxicillin Allergy (Mild, Verified 11/13/24 15:22) Rash penicillin G Allergy (Mild, Verified 11/13/24 15:22) Rash pomegranate Allergy (Verified 11/13/24 15:22) Anaphylaxis Medications ???Medication ???Instructions ???Recorded ???Confirmed ???Type docosahexaenoic acid 200 mg 1 mg PO DAILY 05/01/24 11/13/24 Hi story capsule ( DHA) famotidine 20 mg tablet (Pepcid) 20 mg PO DAILY #30 tabs 09/05/24 0 11/13/24 Rx aspirin 81 mg chewable tablet 1 tab PO DAILY 10/09/24 11/13/24 H istory (Aspirin Childrens) ferrous sulfate 325 mg (65 mg 325 mg PO DAILY 10/09/24 11/13/24 History iron) tablet (Feosol) Last Menstrual Period: 03/10/24 Zika: Zika virus screening: Negative : No PFSH PFSH Medical History Twin History of marijuana use Trauma Migraine Autoimmune disease Family history of hemophilia History of suicidal ideation Anxiety and depression Surgical History Status post vaginal delivery Status post vaginal delivery H/O breast surgery Family History Mother Arthritis Fibromyalgia Father Epilepsy Social History adopted: No household members: children number of children: 2 current occupational status: employed current occupation: [employer] current occupational exposures/hazards: No pets and animals: No history of recent travel: Yes ( - Mar 2024) out of state: Yes out of country: No sexually active: Yes Smoking Status: Never smoker alcohol intake: never substance use type: marijuana diet: gluten free well-balanced diet: daily or most days caffeine: Yes Type: coffee Number of servings: 1 eating out: rarely or never during the past year weight has: remained stable what type of physical activity do you participate in: walking frequency: 3-4 times per week duration: < 15 minutes/day 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 Date Name GA/Weeks Outcome Route Bth Weight Infant Gen Labor Lgth Anesthesia Del Locatn Provider FOB Unknown 2017 miscarriage spontaneous 03/15/20 [place] 39 live - full term 7lbs 12oz Female none [facility] M 10/16/22 E[place] 38 live - full term 7lbs 7.4oz Female none [facility] Elenita Christina Fabriciokiran Fabiola Delivery Date: 03/15/20 Last Updated by: Shital Loving no complications Delivery Date: 10/16/22 Last Updated by: Eun Griffith COVID HPI 34 WK OB *TWINS* Details: DARRYL BUI is a 24 year old who presents for routine OB visit. OB Visit BERNADETTE Calculator Estimated Delivery Date Method Current WG Current Estimate 12/15/24 Ultrasound #1 35w 3d Other Estimates 12/15/24 LMP (Certain) 35w 3d # 2 Expected Delivery Route/Plan Labor Preferences- CB/BF classes: [] labor support person: [] labor intervention preferences: [] pain management options preferred: [] cut cord/dad catch: [] : [] PP control planned: [] discussed possible routes of delivery and associated risks: [] special requests: [] Specific Issue/Plans Covid status: [] Flu vaccine: [] Tdap vaccine: declined Rhogam: [] LARC form signed: [] movement and labor precautions reviewed. Problem list reviewed and updated with the most current plan of care details and appropriate orders placed. Relevant counseling for the gestational age provided. Continue routine care and follow up unless otherwise noted in visit notes/problem list details Initial Weight: 132 lb Date -???-???-???-???-???-?? ?-???-???-???-???-???-? ??- EGA Weight BP Urine Prot -???-???-???-???-???-?? ?-???-???-???-???-???-? ??- Glucose FHR F (more content not included)... Normal [facility] Screening beta-hemolytic Str eptococcus cultureOrdered By: Devora Olsen on 11-13-2024 Beta-hemolytic Streptococcus culture Group B Beta Streptococcus is not isolated. [facility] CNOVon 11-08-2024 CNOV Office Visit ([facility] ) DARRYL BUI ([id number]) 2000 F Date Time Provider Department 11/08/24 6:05 PM ALFREDA DAVID During your visit today, we recorded the following information about you: Temperature Pulse Respiration Blood pressure 97 degrees 119/minute 16/minute 136/67 Alfreda David, SIERRA 11/08/2024 6:50 PM Signed [facility] Subjective Patient presents with: Ear Problem: Ear is painful, started today. Darryl Bui is a 34-week 24-year-old female with a past medical history of depression who presents to [facility] today for evaluation of left ear pain that began earlier today. She states that she has had nasal congestion over the past couple of days. Review of Systems Constitutional: Negative for chills, diaphoresis and fever. HENT: Positive for congestion and ear pain (left). All other systems reviewed and are negative. Objective BP 136/67 Pulse 119 Temp 36.1 ?C (97 ?F) Resp 16 LMP 03/10/2024 (Exact Date) SpO2 99% Physical Exam Vitals reviewed. Constitutional: General: She is not in acute distress. Appearance: Normal appearance. She is normal weight. She is not ill-appearing or toxic-appearing. Comments: The patient appears to be non-toxic, in no acute distress, and resting comfortably on the table. HENT: Head: Normocephalic and atraumatic. Right Ear: Tympanic membrane, ear canal and external ear normal. Left Ear: Tympanic membrane is injected and erythematous. Eyes: Extraocular Movements: Extraocular movements intact. Cardiovascular: Rate and Rhythm: Normal rate and regular rhythm. Heart sounds: Normal heart sounds. No murmur heard. No friction rub. No gallop. Pulmonary: Effort: Pulmonary effort is normal. No respiratory distress. Breath sounds: Normal breath sounds. No wheezing. Musculoskeletal: General: Normal range of motion. Cervical back: Normal range of motion. Skin: General: Skin is warm and dry. Findings: No erythema or rash. Neurological: General: No focal deficit present. Mental Status: She is alert and oriented to person, place, and time. Mental status is at baseline. Psychiatric: Mood and Affect: Mood normal. Behavior: Behavior normal. Thought Content: Thought content normal. MDM Examination of the left ear reveals erythema and injection of the tympanic membrane consistent with acute otitis media. Patient counseled regarding suspected diagnosis and given a prescription for Omnicef. Advised to follow-up with primary care as needed for any new or worsening symptoms. ASSESSMENT/PLAN: 1. Acute otitis media, left - ICD9: 382.9, ICD10: H66.92 (primary diagnosis) - CEFDINIR 300 MG CAPSULE 2. Left ear pain - ICD9: 388.70, ICD10: H92.02 3. Nasal congestion - ICD9: 478.19, ICD10: R09.81 Medical Decision Making: Problems: Low: Acute, uncomplicated illness or injury Risk: Minimal: Minimal risk from testing/treatment Moderate: Drug management Medical Decision Making Level: 3 - Low I spent a total of 20 minutes on the date of the service which included preparing to see the patient, [id number] patient care, completing clinical documentation, performing a medically appropriate examination, counseling and educating the patient/family/caregive r, and ordering medications, tests, or procedures. Alfreda David PA-C Procedures Alfreda David PA-C 11/08/2024 6:32 PM Signed Otitis Media An ear infection is also called otitis media. Blocked or swollen eustachian tubes can cause an infection. Eustachian tubes connect the middle ear to the back of the nose and throat. They drain fluid from the middle ear. You may have a buildup of fluid in your ear. Germs build up in the fluid and infection develops. Medicines: You may need any of the following: Acetaminophen decreases pain and fever. It is available without a doctor's order. Ask how much to take and how often to take it. Follow directions. Read the labels of all other medicines you are using to see if they also contain acetaminophen, or ask your doctor or pharmacist. Acetaminophen can cause liver damage if not taken correctly. Do not use more than 4 grams (4,000 milligrams) total of acetaminophen in one day. NSAIDs , such as ibuprofen, help decrease swelling, pain, and fever. This medicine is available with or without a doctor's order. NSAIDs can cause stomach bleeding or kidney problems in certain people. If you take blood thinner medicine, always ask your healthcare provider if NSAIDs are safe for you. Always read the medicine label and follow directions. Ear drops may contain medicine to decrease pain and inflammation. Antibiotics help treat a bacterial infection. Take your medicine as directed. Contact your healthcare provider if you think your medicine is not helping or if you have side effects. Tell him or he (more content not included)... Normal [facility] OB Triage Progress Noteon OB Triage Progress Note [facility] Medical Records Department [address] [place] [address] OB Triage Progress Note 11/08/24133 MR#: [id number] Acct: [id number] Name: DARRYL BUI Rep #: [id number] : 2000 24 From: Devora Olsen MD PCP: Dr. Fabiola Bearden DO Status:REG CLI Y DOS: [facility] Progress Notes Date of Service: 11/07/24 Progress Note: Patient presents for triage evaluation secondary to contractions FHT: 140 Moderate variability reactive no decelerations category I tracing [place]: q 2-5 Contractions Assessment and plan: threatened labor 34 weeks Reactive NST, reassuring maternal and status patient discharged to home to follow-up as csheduled no cervical change dc home. See problem list details for additional plan information. Charges/Coding Procedures Urinary/Genital 52xxx-59xxx: 87163-52 non-stress test Interp 11/08/24134 Date Devora Olsen MD Cosigner Signature (if applicable): Date CC: Dr. Fabiola Bearden DO; Dr. Devora Olsen MD Signed Normal [facility] Urinalysis, Routine (Dipstic k)on 11-07-2024 BILIRUBIN URINE Normal Negative [facility] Comment on above: Order Comment: COLLE CTOR TO SPECIFY Result Comment: NEVE R COLLECTED Performed By: #### B TS, L509.4005, L509.8000, L100.0100, L3890.6100, L3890.6005, L900.0098, L3890.6300 #### [facility] [address] [place], [address] Clarity (U) Normal Clear [facility] Comment on above: Order Comment: COLLE CTOR TO SPECIFY Result Comment: NEVE R COLLECTED Performed By: #### B TS, L509.4005, L509.8000, L100.0100, L3890.6100, L3890.6005, L900.0098, L3890.6300 #### [facility] [address] [place], [address] Color (U) Normal Yellow [facility] Comment on above: Order Comment: COLLE CTOR TO SPECIFY Result Comment: NEVE R COLLECTED Performed By: #### B TS, L509.4005, L509.8000, L100.0100, L3890.6100, L3890.6005, L900.0098, L3890.6300 #### [facility] [address] [place], [address] GLUCOSE, UR Normal Normal [facility] Comment on above: Order Comment: COLLE CTOR TO SPECIFY Result Comment: NEVE R COLLECTED Performed By: #### B TS, L509.4005, L509.8000, L100.0100, L3890.6100, L3890.6005, L900.0098, L3890.6300 #### [facility] [address] [place], [address] KETONE UR Normal Negative [facility] Comment on above: Order Comment: COLLE CTOR TO SPECIFY Result Comment: NEVE R COLLECTED Performed By: #### B TS, L509.4005, L509.8000, L100.0100, L3890.6100, L3890.6005, L900.0098, L3890.6300 #### [facility] [address] [place], [address] LEUK ESTERASE Normal Negative [facility] Comment on above: Order Comment: COLLE CTOR TO SPECIFY Result Comment: NEVE R COLLECTED Performed By: #### B TS, L509.4005, L509.8000, L100.0100, L3890.6100, L3890.6005, L900.0098, L3890.6300 #### [facility] [address] [place], [place], [id number] Nitrite Ql (U) Normal Negative [facility] Comment on above: Order Comment: COLLE CTOR TO SPECIFY Result Comment: NEVE R COLLECTED Performed By: #### B TS, L509.4005, L509.8000, L100.0100, L3890.6100, L3890.6005, L900.0098, L3890.6300 #### [facility] [address] [place], [place], [address] OCCULT BLOOD-UR Normal Negative [facility] Comment on above: Order Comment: COLLE CTOR TO SPECIFY Result Comment: NEVE R COLLECTED Performed By: #### B TS, L509.4005, L509.8000, L100.0100, L3890.6100, L3890.6005, L900.0098, L3890.6300 #### [facility] [address] [place], [place], [id number] pH UR Normal 5.0 - 8.0 [facility] Comment on above: Order Comment: COLLE CTOR TO SPECIFY Result Comment: NEVE R COLLECTED Performed By: #### B TS, L509.4005, L509.8000, L100.0100, L3890.6100, L3890.6005, L900.0098, L3890.6300 #### [facility] [address] [place], [address] PROT DIPSTX Normal Negative [facility] Comment on above: Order Comment: COLLE CTOR TO SPECIFY Result Comment: NEVE R COLLECTED Performed By: #### B TS, L509.4005, L509.8000, L100.0100, L3890.6100, L3890.6005, L900.0098, L3890.6300 #### [facility] [address] [place], [address] SP.GR. DIPSTX Normal 1.002-1.030 [facility] Comment on above: Order Comment: COLLE CTOR TO SPECIFY Result Comment: NEVE R COLLECTED Performed By: #### B TS, L509.4005, L509.8000, L100.0100, L3890.6100, L3890.6005, L900.0098, L3890.6300 #### [facility] [address] [place], [address] UR Preservative Normal [facility] Comment on above: Order Comment: COLLE CTOR TO SPECIFY Result Comment: NEVE R COLLECTED Performed By: #### B TS, L509.4005, L509.8000, L100.0100, L3890.6100, L3890.6005, L900.0098, L3890.6300 #### [facility] [address] [place], [address] UROBILI Normal Normal [facility] Comment on above: Order Comment: COLLE CTOR TO SPECIFY Result Comment: NEVE R COLLECTED Performed By: #### B TS, L509.4005, L509.8000, L100.0100, L3890.6100, L3890.6005, L900.0098, L3890.6300 #### [facility] [address] [place], [address] Urine Cultureon 11-03-2024 URC Below infection leve l. Mixed Gram Positive Organisms Nelson Count 1000-10,000 MIXC Mixed contaminants. Submit a new specimen if indicated. Normal [facility] Comment on above: Performed By: #### B TS, L509.4005, L509.8000, L100.0100, L3890.6100, L3890.6005, L900.0098, L3890.6300 #### [facility] [address] [place], [place], [id number] Bilirubin Test strip Ql (U)O rdered By: Devora Olsen on 11-01-2024 Bilirubin Ql (U) Negative Negative [facility] Ketones Test strip Ql (U)Ord ered By: Devora Olsen on 11-01-2024 Ketones Ql (U) Negative Negative [facility] Microscopic analysis of urin e for red blood cells (RBC)Ordered By: Devora Olsen on 11-01-2024 Microscopic analysis of urine for red blood cells (RBC) 0 SEEN /hpf 0-5 [facility] Mucus LM Ql (Urine sed)Order ed By: Devora Olsen on 11-01-2024 Mucus Ql (Urine sed) 0 SEEN /hpf [facility] Nitrite Test strip Ql (U)Ord ered By: Devora Olsen on 11-01-2024 Nitrite Ql (U) Negative Negative [facility] OB Triage Progress Noteon OB Triage Progress Note [facility] Medical Records Department [address] [place] [address] OB Triage Progress Note 11/01/24 1137 MR#: [id number] Acct: [id number] Name: DARRYL BUI Rep #: [id number] : 2000 24 From: Devora Olsen MD PCP: Dr. Fabiola Bearden, DO Status:REG CLI Y DOS: Location: [id number] Progress Notes Date of Service: 11/01/24 Progress Note: Patient presents for triage evaluation secondary to vaginal bleeding twins FHT: a 140 Moderate variability reactive no decelerations category I tracing b 130 Moderate variability reactive no decelerations category I tracing [place]: q 20 min Contractions Assessment and plan: 33 week twin vaginal bleeding cervix 1 cm thick no bleeding seen, false labor reassuring tracing, Reactive NST, reassuring maternal and status patient discharged to home to follow-up as scheduled. See problem list details for additional plan information. Charges/Coding Procedures Urinary/Genital 52xxx-59xxx: 62859-45 non-stress test Interp 11/01/24 1138 Date Devora Olsen MD Cosigner Signature (if applicable): Date CC: Dr. Fabiola Bearden DO; Dr. Devora Olsen MD Signed Normal [facility] Protein Test strip Ql (U)Ord ered By: Devora Olsen on 11-01-2024 Protein Ql (U) 15 mg/dl High Negative [facility] Squamous epithelial cells de tection in urine sediment by light microscopyOrdered By: Devora Olsen on 11-01-2024 Epithelial cells.squamous LM Ql (Urine sed) 10-25 SEEN /hpf 5-10 [facility] Urinalysis, Completeon 11-01 WBC 0-5 SEEN Normal 0-5 [facility] Comment on above: Order Comment: CLEAN CATCH Performed By: #### B TS, L509.4005, L509.8000, L100.0100, L3890.6100, L3890.6005, L900.0098, L3890.6300 #### [facility] [address] [place], [place], [id number] EPI,SQUAMOUS 10-25 SEEN Normal 5-10 [facility] Comment on above: Order Comment: CLEAN CATCH Performed By: #### B TS, L509.4005, L509.8000, L100.0100, L3890.6100, L3890.6005, L900.0098, L3890.6300 #### [facility] [address] [place], [address] BACTERIA 0 SEEN Normal None Seen [facility] Comment on above: Order Comment: CLEAN CATCH Performed By: #### B TS, L509.4005, L509.8000, L100.0100, L3890.6100, L3890.6005, L900.0098, L3890.6300 #### [facility] [address] [place], [address] Mucus Ql (Urine sed) 0 SEEN Normal [facility] Comment on above: Order Comment: CLEAN CATCH Performed By: #### B TS, L509.4005, L509.8000, L100.0100, L3890.6100, L3890.6005, L900.0098, L3890.6300 #### [facility] [address] [place], [address] RBC 0 SEEN Normal 0-5 [facility] Comment on above: Order Comment: CLEAN CATCH Performed By: #### B TS, L509.4005, L509.8000, L100.0100, L3890.6100, L3890.6005, L900.0098, L3890.6300 #### [facility] [address] [place], [address] Urine clarityOrdered By: Noel Olsen on 11-01-2024 Clarity (U) Sl. Cloudy Clear [facility] Urine color determinationOrd ered By: Devora Olsen on 11-01-2024 Color (U) Yellow Yellow [facility] Urine cultureOrdered By: Noel Olsen on 11-01-2024 Bacteria identified Cx Nom (U) Positive Abnormal [facility] Urine glucose detectionOrder ed By: Devora Olsen on 11-01-2024 Glucose Ql (U) Normal mg/dl Normal [facility] Urine leukocyte esterase det ection by dipstickOrdered By: Devora Olsen on 11-01-2024 Leukocyte esterase Test strip Ql (U) 500 /ul High Negative [facility] Urine pHOrdered By: Devora mcdaniels on 11-01-2024 pH (U) 7.0 [pH] 5.0 - 8.0 [facility] Urine sediment bacteria coun t by microscopy (number/high power field)Ordered By: Devora Olsen on 11-01-2024 Bacteria LM.HPF (Urine sed) [#/Area] 0 /[HPF] None Seen [facility] Urine specific gravity measu rementOrdered By: Devora Olsen on 11-01-2024 Specific gravity (U) [Rel density] 1.010 1.002-1.030 [facility] Urine urobilinogen measureme ntOrdered By: Devora Olsen on 11-01-2024 Urobilinogen Ql (U) Normal mg/dl Normal [facility] White blood cell countOrdere d By: eDvora Olsen on 11-01-2024 White blood cell count 0-5 SEEN /hpf 0-5 [facility] - Chemistry and C hemistry - challengeOrdered By: Ramandeep Hinds on 10-29-2024 Glucose Ql (U) Negative [facility] - UrinalysisOrder ed By: Ramandeep Hinds on 10-29-2024 Protein Ql (U) Negative [facility] Patient Accounts Manager Office Visit Reporton 10-29-2024 Patient Accounts Manager Office Visit Report [facility]'s [address], [address] [place] [address] OFFICE VISIT Date of Service: 10/29/24 MR#: [id number] Acct: [id number] Name: DARRYL BUI Rep #: [id number] : 2000 Provider: Dr. Ramandeep Guillen DO Age/Sex: 24/F Location: [facility] [place] Status: Signed Intake Vital Signs 06/07/24 15:41 10/25/24 10:22 10/29/24 14:57 10/29/24 14:58 Height 5 ft 3 in 5 ft 3 in 5 ft 3 in 5 ft 3 in Weight: 166 lb 6 oz BMI 29.5 BP 115/72 Intake Visit Reasons: 32 WK OB *TWINS* Compressor House Operator Required: No Is patient in pain?: No Allergies gluten Allergy (Severe, Verified 10/25/24 10:22) Abd cramps/diarrhea amoxicillin Allergy (Mild, Verified 10/25/24 10:22) Rash penicillin G Allergy (Mild, Verified 10/25/24 10:22) Rash pomegranate Allergy (Verified 10/25/24 10:22) Anaphylaxis Medications ???Medication ???Instructions ???Recorded ???Confirmed ???Type docosahexaenoic acid 200 mg 1 mg PO DAILY 05/01/24 10/29/24 Hi story capsule ( DHA) famotidine 20 mg tablet (Pepcid) 20 mg PO DAILY #30 tabs 09/05/24 0 10/29/24 Rx aspirin 81 mg chewable tablet 1 tab PO DAILY 10/09/24 10/29/24 H istory (Aspirin Childrens) ferrous sulfate 325 mg (65 mg 325 mg PO DAILY 10/09/24 10/29/24 History iron) tablet (Feosol) Last Menstrual Period: 03/10/24 Zika: Zika virus screening: Negative : No PFSH PFSH Medical History Twin History of marijuana use Trauma Migraine Autoimmune disease Family history of hemophilia History of suicidal ideation Anxiety and depression Surgical History Status post vaginal delivery Status post vaginal delivery H/O breast surgery Family History Mother Arthritis Fibromyalgia Father Epilepsy Social History adopted: No household members: children number of children: 2 current occupational status: employed current occupation: [employer] current occupational exposures/hazards: No pets and animals: No history of recent travel: Yes ( - Mar 2024) out of state: Yes out of country: No sexually active: Yes Smoking Status: Never smoker alcohol intake: never substance use type: marijuana diet: gluten free well-balanced diet: daily or most days caffeine: Yes Type: coffee Number of servings: 1 eating out: rarely or never during the past year weight has: remained stable what type of physical activity do you participate in: walking frequency: 3-4 times per week duration: < 15 minutes/day 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 Date Name GA/Weeks Outcome Route Bth Weight Gen Labor Lgth Anesthesia Del Locatn Provider FOB Unknown 2017 miscarriage spontaneous 03/15/20 River 39 live - full term 7lbs 12oz Female none [facility] SE M 10/16/22 E[place] 38 live - full term 7lbs 7.4oz Female none [facility] Elenita Angulo Delivery Date: 03/15/20 Last Updated by: Shital Loving no complications Delivery Date: 10/16/22 Last Updated by: Eun Griffith COVID HPI 32 WK OB *TWINS* Details: DARRYL BUI is a 24 year old who presents for routine OB visit. OB Visit BERNADETTE Calculator Estimated Delivery Date Method Current WG Current Estimate 12/15/24 Ultrasound #1 33w 2d Other Estimates 12/15/24 LMP (Certain) 33w 2d # 2 Expected Delivery Route/Plan Labor Preferences- CB/BF classes: [] labor support person: [] labor intervention preferences: [] pain management options preferred: [] cut cord/dad catch: [] : [] PP control planned: [] discussed possible routes of delivery and associated risks: [] special requests: [] Specific Issue/Plans Covid status: [] Flu vaccine: [] Tdap vaccine: declined Rhogam: [] LARC form signed: [] movement and labor precautions reviewed. Problem list reviewed and updated with the most current plan of care details and appropriate orders placed. Relevant counseling for the gestational age provided. Continue routine care and follow up unless otherwise noted in visit notes/problem list details Initial Weight: 132 lb Date -???-???-???-???-???-?? ?-???-???-???-???-???-? ??- EGA Weight BP Urine Prot -? (more content not included)... Normal [facility] Urine Cultureon 10-27-2024 URC Below infection leve l. Mixed Gram Positive Organisms Nelson Count <1000 MIXC Mixed contaminants. Submit a new specimen if indicated. Normal [facility] Comment on above: Performed By: #### B TS, L509.4005, L509.8000, L100.0100, L3890.6100, L3890.6005, L900.0098, L3890.6300 #### [facility] [address] [place], [address] Bilirubin Test strip Ql (U)O rdered By: Devora Olsen on 10-25-2024 Bilirubin Ql (U) Negative Negative [facility] Ketones Test strip Ql (U)Ord ered By: Devora Olsen on 10-25-2024 Ketones Ql (U) Negative Negative [facility] OB Triage Progress Noteon OB Triage Progress Note [facility] Medical Records Department [address] [place] [address] OB Triage Progress Note 10/25/24 1028 MR#: [id number] Acct: [id number] Name: DARRYL BUI Rep #: [id number] : 2000 24 From: Devora Olsen MD PCP: Dr. Fabiola Bearden, DO Status:REG CLI Y DOS: Location: [place] [address] Progress Notes Date of Service: 10/25/24 Progress Note: Patient presents for triage evaluation secondary to spotting FHT: A 150 Moderate variability reactive no decelerations category I tracing B 150 Moderate variability reactive no decelerations category I tracing [place]: irritability Contractions Assessment and plan: 32 weeks false labor vaginla bleeding cervix .5 cm thick high no reuglar ctx stable urine sent for culture Reactive NST, reassuring maternal and status patient discharged to home to follow-up as scheduled. See problem list details for additional plan information. Laboratory Studies: Laboratory Tests 10/25/24 Range/Units 10:00 Urine Color Yellow (Yellow) Urine Clarity Clear (Clear) Urine pH 8.0 (5.0 - 8.0) Ur Specific [place] 1.015 (1.002-1.030) Urine Protein 15 H (Negative) mg/dl Urine Glucose (UA) Normal (Normal) mg/dl Urine Ketones Negative (Negative) mg/dl Urine Occult Blood Negative (Negative) /ul Urine Nitrite Negative (Negative) Urine Bilirubin Negative (Negative) mg/dL Urine Urobilinogen Normal (Normal) mg/dl Ur Leukocyte Esterase 500 H (Negative) /ul Charges/Coding Procedures Urinary/Genital 52xxx-59xxx: 25982-30 non-stress test Interp 10/25/24 1029 Date Devora Olsen MD Cosigner Signature (if applicable): Date CC: Dr. Fabiola Bearden, DO; Dr. Devora Olsen MD Signed Normal [facility] Protein Test strip Ql (U)Ord ered By: Devora Olsen on 10-25-2024 Protein Ql (U) 15 mg/dl High Negative [facility] Urinalysis, Routine (Dipstic k)on 10-25-2024 BILIRUBIN URINE Negative Normal Negative [facility] Comment on above: Order Comment: PN Performed By: #### B TS, L509.4005, L509.8000, L100.0100, L3890.6100, L3890.6005, L900.0098, L3890.6300 #### [facility] [place], [address] GLUCOSE, UR Normal Normal Normal [facility] Comment on above: Order Comment: PN Performed By: #### B TS, L509.4005, L509.8000, L100.0100, L3890.6100, L3890.6005, L900.0098, L3890.6300 #### [facility] [address] [place], [address] KETONE UR Negative Normal Negative [facility] Comment on above: Order Comment: PN Performed By: #### B TS, L509.4005, L509.8000, L100.0100, L3890.6100, L3890.6005, L900.0098, L3890.6300 #### [facility] [address] [place], [address] LEUK ESTERASE 500 /ul Abnormal Negative [facility] Comment on above: Order Comment: PN Performed By: #### B TS, L509.4005, L509.8000, L100.0100, L3890.6100, L3890.6005, L900.0098, L3890.6300 #### [facility] [address] [place], [address] OCCULT BLOOD-UR Negative Normal Negative [facility] Comment on above: Order Comment: PN Performed By: #### B TS, L509.4005, L509.8000, L100.0100, L3890.6100, L3890.6005, L900.0098, L3890.6300 #### [facility] [address] [place], [address] pH UR 8.0 Normal 5.0 - 8.0 [facility] Comment on above: Order Comment: PN Performed By: #### B TS, L509.4005, L509.8000, L100.0100, L3890.6100, L3890.6005, L900.0098, L3890.6300 #### [facility] [address] [place], [address] PROT DIPSTX 15 mg/dl Abnormal Negative [facility] Comment on above: Order Comment: PN Performed By: #### B TS, L509.4005, L509.8000, L100.0100, L3890.6100, L3890.6005, L900.0098, L3890.6300 #### [facility] [address] [place], [address] SP.GR. DIPSTX 1.015 Normal 1.002-1.030 [facility] Comment on above: Order Comment: PN Performed By: #### B TS, L509.4005, L509.8000, L100.0100, L3890.6100, L3890.6005, L900.0098, L3890.6300 #### [facility] [address] [place], [address] UROBILI Normal Normal Normal [facility] Comment on above: Order Comment: PN Performed By: #### B TS, L509.4005, L509.8000, L100.0100, L3890.6100, L3890.6005, L900.0098, L3890.6300 #### [facility] [address] [place], [address] Urine clarityOrdered By: Noel Olsen on 10-25-2024 Clarity (U) Clear Normal Clear [facility] Comment on above: Order Comment: PN Performed By: #### B TS, L509.4005, L509.8000, L100.0100, L3890.6100, L3890.6005, L900.0098, L3890.6300 #### [facility] [address] [place], [address] Urine color determinationOrd ered By: Devora Olsen on 10-25-2024 Color (U) Yellow Normal Yellow [facility] Comment on above: Order Comment: PN Performed By: #### B TS, L509.4005, L509.8000, L100.0100, L3890.6100, L3890.6005, L900.0098, L3890.6300 #### [facility] [address] [place], [place], [address] Urine cultureOrdered By: Noel Olsen on 10-25-2024 Bacteria identified Cx Nom (U) Positive Abnormal [facility] Urine glucose detectionOrder ed By: Devora Olsen on 10-25-2024 Glucose Ql (U) Normal mg/dl Normal [facility] Urine leukocyte esterase det ection by dipstickOrdered By: Devora Olsen on 10-25-2024 Leukocyte esterase Test strip Ql (U) 500 /ul High Negative [facility] Urine nitrite test by dipsti ckOrdered By: Devora lOsen on 10-25-2024 Nitrite Ql (U) Negative Normal Negative [facility] Comment on above: Order Comment: PN Performed By: #### B TS, L509.4005, L509.8000, L100.0100, L3890.6100, L3890.6005, L900.0098, L3890.6300 #### [facility] [address] [place], [address] Urine pHOrdered By: Devora mcdaniels on 10-25-2024 pH (U) 8.0 [pH] 5.0 - 8.0 [facility] Urine specific gravity measu rementOrdered By: Devora Olsen on 10-25-2024 Specific gravity (U) [Rel density] 1.015 1.002-1.030 [facility] Urine urobilinogen measureme ntOrdered By: Devora Olsen on 10-25-2024 Urobilinogen Ql (U) Normal mg/dl Normal [facility] OB Triage Progress Noteon OB Triage Progress Note [facility] Medical Records Department [address] [place] [address] OB Triage Progress Note 10/17/24 2228 MR#: [id number] Acct: [id number] Name: DARRYL BUI Rep #: [id number] : 2000 24 From: Devora Olsen MD PCP: Dr. Fabiola Bearden, DO Status:DEP CLI Y DOS: Location: [facility] Progress Notes Date of Service: 10/09/24 Progress Note: Patient presents for triage evaluation secondary to possible rom FHT: a 140 Moderate variability reactive no decelerations category I tracing b 130 Moderate variability reactive no decelerations category I tracing [place]: no regular Contractions Assessment and plan: false labor amniotic membrnaes intact 30 weeks Reactive NST, reassuring maternal and status patient discharged to home to follow-up as scheudled. See problem list details for additional plan information. Laboratory Studies: Laboratory Tests 10/09/24 Range/Units 13:45 Vag Amniotic Fld Detect Negative (Negative) Charges/Coding Procedures Urinary/Genital 52xxx-59xxx: 16218-13 non-stress test Interp 10/17/242229 Date Devora Olsen MD Cosigner Signature (if applicable): Date CC: Dr. Fabiola Bearden DO; Dr. Devora Olsen MD Signed Normal [facility] Patient Accounts Manager Office Visit Reporton 10-17-2024 Patient Accounts Manager Office Visit Report [facility]'s [address], [address] [place] [address] OFFICE VISIT Date of Service: 10/17/24 MR#: [id number] Acct: [id number] Name: DARRYL BUI Rep #: [id number] : 2000 Provider: Dr. Devora scott MD Age/Sex: 24/F Location: [facility] Status: Signed Intake Vital Signs 06/07/24 15:41 10/09/24 16:09 10/17/24 15:23 Height 5 ft 3 in 5 ft 6 in 5 ft 6 in Weight: 166 lb 2 oz BMI 26.8 BP 111/75 Intake Visit Reasons: 30 WK OB *TWINS* Compressor House Operator Required: No Is patient in pain?: No Allergies gluten Allergy (Severe, Verified 10/17/24 15:29) Abd cramps/diarrhea amoxicillin Allergy (Mild, Verified 10/17/24 15:29) Rash penicillin G Allergy (Mild, Verified 10/17/24 15:29) Rash pomegranate Allergy (Verified 10/17/24 15:29) Anaphylaxis Medications ???Medication ???Instructions ???Recorded ???Confirmed ???Type docosahexaenoic acid 200 mg 1 mg PO DAILY 05/01/24 10/17/24 Hi story capsule ( DHA) famotidine 20 mg tablet (Pepcid) 20 mg PO DAILY #30 tabs 09/05/24 0 10/17/24 Rx aspirin 81 mg chewable tablet 1 tab PO DAILY 10/09/24 10/17/24 H istory (Aspirin Childrens) ferrous sulfate 325 mg (65 mg 325 mg PO DAILY 10/09/24 10/17/24 History iron) tablet (Feosol) Last Menstrual Period: 03/10/24 Zika: Zika virus screening: Negative : No PFSH PFSH Medical History Twin History of marijuana use Trauma Migraine Autoimmune disease Family history of hemophilia History of suicidal ideation Anxiety and depression Surgical History Status post vaginal delivery Status post vaginal delivery H/O breast surgery Family History Mother Arthritis Fibromyalgia Father Epilepsy Social History adopted: No household members: children number of children: 2 current occupational status: employed current occupation: [employer] current occupational exposures/hazards: No pets and animals: No history of recent travel: Yes ( - Mar 2024) out of state: Yes out of country: No sexually active: Yes Smoking Status: Never smoker alcohol intake: never substance use type: marijuana diet: gluten free well-balanced diet: daily or most days caffeine: Yes Type: coffee Number of servings: 1 eating out: rarely or never during the past year weight has: remained stable what type of physical activity do you participate in: walking frequency: 3-4 times per week duration: < 15 minutes/day 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 Date Name GA/Weeks Outcome Route Bth Weight Gen Labor Lgth Anesthesia Del Locatn Provider FOB Unknown 2016 miscarriage spontaneous 03/15/20 [place] 39 live - full term 7lbs 12oz Female none [facility] SE M 10/16/22 Ember 38 live - full term 7lbs 7.4oz Female none [facility] Elenita Angulo Delivery Date: 03/15/20 Last Updated by: Shital Loving no complications Delivery Date: 10/16/22 Last Updated by: Eun Griffith COVID HPI 30 WK OB *TWINS* Details: DARRYL BUI is a 24 year old who presents for routine OB visit. OB Visit BERNADETTE Calculator Estimated Delivery Date Method Current WG Current Estimate 12/15/24 Ultrasound #1 31w 4d Other Estimates 12/15/24 LMP (Certain) 31w 4d # 2 Expected Delivery Route/Plan Labor Preferences- CB/BF classes: [] labor support person: [] labor intervention preferences: [] pain management options preferred: [] cut cord/dad catch: [] : [] PP control planned: [] discussed possible routes of delivery and associated risks: [] special requests: [] Specific Issue/Plans Covid status: [] Flu vaccine: [] Tdap vaccine: declined Rhogam: [] LARC form signed: [] movement and labor precautions reviewed. Problem list reviewed and updated with the most current plan of care details and appropriate orders placed. Relevant counseling for the gestational age provided. Continue routine care and follow up unless otherwise noted in visit notes/problem list details Initial Weight: 132 lb Date -???-???-???-???-???-?? ?-???-???-???-???-???-? ??- EGA Weight BP Urine Prot -???-???-???-???-???-?? ?-???-???-???-?? (more content not included)... Normal [facility] (ROM) Rupture Of Membraneson 10-09-2024 ROM Negative Normal Negative [facility] Comment on above: Result Comment: Amni otic fluid not present indicates No Rupture of Membranes at time of specimen collection. Performed By: #### B TS, L509.4005, L509.8000, L100.0100, L3890.6100, L3890.6005, L900.0098, L3890.6300 #### [facility] [address] [place], [place], [id number] Testing for ruptured membran esOrdered By: Devora Olsen on 10-09-2024 Vaginal Amniotic Fluid Detection Negative Negative [facility] Comment on above: Amniotic fluid not p resent indicates No Rupture of FetalMembranes at time of specimen collection. Laboratory - Chemistry and C hemistry - challengeOrdered By: Ramandeep Hinds on 10-02-2024 Glucose Ql (U) Negative [facility] - UrinalysisOrder ed By: Ramandeep Hinds on 10-02-2024 Protein Ql (U) Negative [facility] Patient Accounts Manager Office Visit Reporton 10-02-2024 Patient Accounts Manager Office Visit Report [facility]'s [address], [address] [place] [address] OFFICE VISIT Date of Service: 10/02/24 MR#: [id number] Acct: [id number] Name: DARRYL BUI Rep #: [id number] : 2000 Provider: Dr. Ramandeep Guillen, Age/Sex: 24/F Location[place] [facility] Status: Signed Intake Vital Signs 06/07/24 15:41 09/05/24 15:00 10/02/24 15:00 Height 5 ft 3 in 5 ft 3 in 5 ft 3 in Weight: 160 lb 4 oz BMI 28.3 BP 106/71 Intake Visit Reasons: 28 WK OB/GLUCOSE *TWINS* Compressor House Operator Required: No Is patient in pain?: No Allergies gluten Allergy (Severe, Verified 10/02/24 15:01) Abd cramps/diarrhea amoxicillin Allergy (Mild, Verified 10/02/24 15:01) Rash penicillin G Allergy (Mild, Verified 10/02/24 15:01) Rash pomegranate Allergy (Verified 10/02/24 15:01) Anaphylaxis Medications ???Medication ???Instructions ???Recorded ???Confirmed ???Type docosahexaenoic acid 200 mg mg PO 05/01/24 10/02/24 History capsule ( DHA) promethazine 12.5 mg tablet 12.5 mg PO QHS PRN nausea and 12/0 11/2410/02/24 Rx vomiting #30 tabs famotidine 20 mg tablet (Pepcid) 20 mg PO DAILY #30 tabs 09/05/24 0 10/02/24 Rx Last Menstrual Period: 03/10/24 Zika: Zika virus screening: Negative : No PFSH PFSH Medical History Twin History of marijuana use Trauma Migraine Autoimmune disease Family history of hemophilia History of suicidal ideation Anxiety and depression Surgical History Status post vaginal delivery Status post vaginal delivery H/O breast surgery Family History Mother Arthritis Fibromyalgia Father Epilepsy Social History adopted: No household members: children number of children: 2 current occupational status: employed current occupation: [employer] current occupational exposures/hazards: No pets and animals: No history of recent travel: Yes ( - Mar 2024) out of state: Yes out of country: No sexually active: Yes Smoking Status: Never smoker alcohol intake: never substance use type: marijuana diet: gluten free well-balanced diet: daily or most days caffeine: Yes Type: coffee Number of servings: 1 eating out: rarely or never during the past year weight has: remained stable what type of physical activity do you participate in: walking frequency: 3-4 times per week duration: < 15 minutes/day 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 Date Name GA/Weeks Outcome Route Bth Weight Gen Labor Lgth Anesthesia Del Locatn Provider FOB Unknown 2017 miscarriage spontaneous 03/15/20 [place] 39 live - full term 7lbs 12oz Female none [facility] M 10/16/22 Ember 38 live - full term 7lbs 7.4oz Female none [facility] Elenita ruslanSulema Tatehadley Garcia Delivery Date: 03/15/20 Last Updated by: Shital Loving no complications Delivery Date: 10/16/22 Last Updated by: Eun Griffith COVID HPI 28 WK OB/GLUCOSE *TWINS* Details: DARRYL BUI is a 24 year old who presents for routine OB visit. OB Visit BERNADETTE Calculator Estimated Delivery Date Method Current WG Current Estimate 12/15/24 Ultrasound #1 29w 3d Other Estimates 12/15/24 LMP (Certain) 29w 3d # 2 Expected Delivery Route/Plan Labor Preferences- CB/BF classes: [] labor support person: [] labor intervention preferences: [] pain management options preferred: [] cut cord/dad catch: [] : [] PP control planned: [] discussed possible routes of delivery and associated risks: [] special requests: [] Specific Issue/Plans Covid status: [] Flu vaccine: [] Tdap vaccine: [] Rhogam: [] LARC form signed: [] Problem list reviewed and updated with the most current plan of care details and appropriate orders placed. Relevant counseling for the gestational age provided. Continue routine care and follow up unless otherwise noted in visit notes/problem list details Initial Weight: 132 lb Date -???-???-???-???-???-?? ?-???-???-???-???-???-? ??- EGA Weight BP Urine Prot -???-???-???-???-???-?? ?-???-???-???-???-???-? ??- Glucose FHR FuHt Pres Dilation -???-???-???-???-???-?? ?-???-???-???-???-???-? ??- Effaced St Visit Note 05/10/24 (more content not included)... Normal [facility] Gestational GTT 3HR 100gon 0 - 3HR GTT- GEST. Normal [facility] Comment on above: Order Comment: Y Result Comment: FAST ING 82 Col: 09/11/24 0958 GLUCOSE TOLERANCE TEST FOR Reference Interval GESTATIONAL DIABETES Fasting <105 mg/dL 1 hour <190 mg/dl 2 hour <165 mg/dl 3 hour <145 mg/dl 1 HR GLU 174 Col: 09/11/24 1158 2 HR GLU 143 Col: 09/11/24 1300 3 HR GLU 52 Col: 09/11/24 1359 Performed By: #### B TS, L509.4005, L509.8000, L100.0100, L3890.6100, L3890.6005, L900.0098, L3890.6300 #### [facility] [address] [place], [place] [address]. [place], [place], [id number] Glucose tolerance 3 hours ge stational panelOrdered By: Devora Olsen on 09-11-2024 Gestational Glucose Tolerance Test See comment [facility] Comment on above: FASTING 82 Col: 09/01 07/28 0958GLUCOSE TOLERANCE TEST FOR Reference Interval GESTATIONAL DIABETES Fasting <105 mg/dL 1 hour <190 mg/dl 2 hour <165 mg/dl 3 hour <145 mg/dl 1 HR GLU 174 Col: 09/11/24 1158 2 HR GLU 143 Col: 09/11/24 1300 3 HR GLU 52 Col: 09/11/24 1359 Quantitative serum or plasma 3 hour gestational glucose tolerance panelOrdered By: Devora Olsen on 09-11-2024 Glucose tolerance 3 hours gestational panel See comment [facility] Comment on above: FASTING 82 Col: 09/01 07/28 0958GLUCOSE TOLERANCE TEST FOR Reference Interval GESTATIONAL DIABETES Fasting <105 mg/dL 1 hour <190 mg/dl 2 hour <165 mg/dl 3 hour <145 mg/dl 1 HR GLU 174 Col: 09/11/24 1158 2 HR GLU 143 Col: 09/11/24 1300 3 HR GLU 52 Col: 09/11/24 1359 Absolute lymphocyte countOrd ered By: Devora Chapablake on 09-05-2024 Lymphocytes Auto (Unsp spec) [#/Vol] 1.04 10*3/uL 0.83-4.51 [facility] Absolute neutrophil countOrd ered By: Devora Almarazrosario on 09-05-2024 Neutrophils (Bld) [#/Vol] 8.1 10*3/uL High 2.0-7.7 [facility] Automated lymphocyte count a s percentage of total leukocytesOrdered By: Devora Pretty on 09-05-2024 Lymphocytes/100 WBC Auto (Unsp spec) 10.3 % Low 19-41 [facility] Basophil percentageOrdered B y: Devora Pretty on 09-05-2024 Basophils/100 WBC (Bld) 0.7 % 0-1 [facility] CBC W/Diff, Automatedon Absolute Lymph 1.04 X10 3/uL Normal 0.83-4.51 [facility] Comment on above: Performed By: #### B TS, L509.4005, L509.8000, L100.0100, L3890.6100, L3890.6005, L900.0098, L3890.6300 #### [facility] [address] [place], [address] Absolute Neut 8.1 X10 3/uL High 2.0-7.7 [facility] Comment on above: Performed By: #### B TS, L509.4005, L509.8000, L100.0100, L3890.6100, L3890.6005, L900.0098, L3890.6300 #### [facility] [address] [facility] [place], [address] Basophils/100 WBC (Bld) 0.7 % Normal 0-1 [facility] Comment on above: Performed By: #### B TS, L509.4005, L509.8000, L100.0100, L3890.6100, L3890.6005, L900.0098, L3890.6300 #### [facility] [address] [place], [address] Eosinophils/100 WBC (Bld) 0.4 % Normal 0-5 [facility] Comment on above: Performed By: #### B TS, L509.4005, L509.8000, L100.0100, L3890.6100, L3890.6005, L900.0098, L3890.6300 #### [facility] [address] [place], [address] Erythrocyte distribution width (RBC) [Ratio] 13.2 % Normal 11.6-14.6 [facility] Comment on above: Performed By: #### B TS, L509.4005, L509.8000, L100.0100, L3890.6100, L3890.6005, L900.0098, L3890.6300 #### [facility] [address] [place], [place], [id number] [phone]) Hematocrit (Bld) [Volume fraction] 31.4 % Low 37-47 [facility] Comment on above: Performed By: #### B TS, L509.4005, L509.8000, L100.0100, L3890.6100, L3890.6005, L900.0098, L3890.6300 #### [facility] [address] [place], [address] Hemoglobin (Bld) [Mass/Vol] 10.3 g/dL Low 12.0-15.0 [facility] Comment on above: Performed By: #### B TS, L509.4005, L509.8000, L100.0100, L3890.6100, L3890.6005, L900.0098, L3890.6300 #### [facility] [address] [place], [address] IG% 3.300 High 0.0-0.9 [facility] Comment on above: Result Comment: IG% - Immature Granulocytes (promyelocytes, myelocytes and metamyelocytes) > 1% indicates that a LEFT SHIFT is Present. Performed By: #### B TS, L509.4005, L509.8000, L100.0100, L3890.6100, L3890.6005, L900.0098, L3890.6300 #### [facility] [address] [place], [address] Lymphocytes/100 WBC (Bld) 10.3 % Low 19-41 [facility] Comment on above: Performed By: #### B TS, L509.4005, L509.8000, L100.0100, L3890.6100, L3890.6005, L900.0098, L3890.6300 #### [facility] [address] [place], [address] MCH (RBC) [Entitic mass] 30.1 pg Normal 27.0-32.0 [facility] Comment on above: Performed By: #### B TS, L509.4005, L509.8000, L100.0100, L3890.6100, L3890.6005, L900.0098, L3890.6300 #### [facility] [address] [place], [address] MCHC (RBC) [Mass/Vol] 32.8 g/dL Normal 32-36 [facility] Comment on above: Performed By: #### B TS, L509.4005, L509.8000, L100.0100, L3890.6100, L3890.6005, L900.0098, L3890.6300 #### [facility] [address] [place], [address] MCV (RBC) [Entitic vol] 91.8 fL Normal 81-99 [facility] Comment on above: Performed By: #### B TS, L509.4005, L509.8000, L100.0100, L3890.6100, L3890.6005, L900.0098, L3890.6300 #### [facility] [address] [place], [address] Monocytes/100 WBC (Bld) 4.7 % Normal 0-10 [facility] Comment on above: Performed By: #### B TS, L509.4005, L509.8000, L100.0100, L3890.6100, L3890.6005, L900.0098, L3890.6300 #### [facility] [address] [place], [address] Neutrophils/100 WBC (Bld) 80.6 % High 47-70 [facility] Comment on above: Performed By: #### B TS, L509.4005, L509.8000, L100.0100, L3890.6100, L3890.6005, L900.0098, L3890.6300 #### [facility] [address] [place], [address] Nucleated RBC (Bld) [#/Vol] 0 10*3/uL Normal 0-5 [facility] Comment on above: Performed By: #### B TS, L509.4005, L509.8000, L100.0100, L3890.6100, L3890.6005, L900.0098, L3890.6300 #### [facility] [address] [place], [address] Platelet mean volume (Bld) [Entitic vol] 11.1 fL Normal 6.2-12.0 [facility] Comment on above: Performed By: #### B TS, L509.4005, L509.8000, L100.0100, L3890.6100, L3890.6005, L900.0098, L3890.6300 #### [facility] [address] [place], [address] Platelets (Bld) [#/Vol] 186 10*3/uL Normal 150-450 [facility] Comment on above: Performed By: #### B TS, L509.4005, L509.8000, L100.0100, L3890.6100, L3890.6005, L900.0098, L3890.6300 #### [facility] [address] [place], [address] RBC (Bld) [#/Vol] 3.42 10*6/uL Low 4.2-5.4 [facility] Comment on above: Performed By: #### B TS, L509.4005, L509.8000, L100.0100, L3890.6100, L3890.6005, L900.0098, L3890.6300 #### [facility] [address] [place], [address] RDW SD 43.7 fl Normal 35.1-43.9 [facility] Comment on above: Performed By: #### B TS, L509.4005, L509.8000, L100.0100, L3890.6100, L3890.6005, L900.0098, L3890.6300 #### [facility] [address] [place], [address] WBC (Bld) [#/Vol] 10.1 10*3/uL Normal 4.4-11.0 [facility] Comment on above: Performed By: #### B TS, L509.4005, L509.8000, L100.0100, L3890.6100, L3890.6005, L900.0098, L3890.6300 #### [facility] [address] [place], [address] Eosinophil percentageOrdered By: Devora Olsen on 09-05-2024 Eosinophils/100 WBC (Bld) 0.4 % 0-5 [facility] Erythrocyte distribution wid th ratioOrdered By: Devora Olsen on 09-05-2024 Erythrocyte distribution width (RBC) [Ratio] 13.2 % 11.6-14.6 [facility] Erythrocyte distribution wid th standard deviationOrdered By: Devora Olsen on 09-05-2024 Erythrocyte distribution width (RBC) [Entitic vol] 43.7 fL 35.1-43.9 [facility] Erythrocyte distribution width (RBC) [Ratio] 43.7 fl 35.1-43.9 [facility] Glucose Challenge Gest 1H 50 dimitri 09-05-2024 GLU GEST 50g 1H 147 mg/dL Normal [facility] Comment on above: Performed By: #### B TS, L509.4005, L509.8000, L100.0100, L3890.6100, L3890.6005, L900.0098, L3890.6300 #### [facility] [address] [place] [address], [id number] Glucose measurement at 2 melisa rs post-dose gestational glucose tolerance testOrdered By: Devora Olsen on 09-05-2024 Glucose [Mass/Vol] 147 mg/dL [facility] Hematocrit Auto (Bld) [Volum e fraction]Ordered By: Devora Olsen on 09-05-2024 Hematocrit (Bld) [Volume fraction] 31.4 % Low 37-47 [facility] Hemoglobin measurementOrdere d By: Devora Olsen on 09-05-2024 Hemoglobin (Bld) [Mass/Vol] 10.3 g/dL Low 12.0-15.0 [facility] Immature granulocytes/100 WB C Auto (Bld)Ordered By: Dveora Olsen on 09-05-2024 Immature granulocytes/100 WBC (Bld) 3.300 % High 0.0-0.9 [facility] Comment on above: IG% - Immature Granu locytes (promyelocytes, myelocytes and metamyelocytes) > 1% indicates that a LEFT SHIFT is Present. L3890.6006on 09-05-2024 HIV Non-Reactive Normal Nonreactive [facility] Comment on above: Result Comment: Non- Reactive Reactive Repeatedly reactive samples must be confirmed according to CDC recommended confirmatory algorithms. The subresults for either HIVAG or AHIV can be used as an aid in the selection of the confirmation algorithm for reactive samples. Send out specimens with Reactive results to [facility] for confirmation. Order the HIV antibody detection and differentiation: lc#[id number] Performed By: #### B TS, L509.4005, L509.8000, L100.0100, L3890.6100, L3890.6005, L900.0098, L3890.6300 #### [facility] [address] [place], [place], [address] L509.8002on 09-05-2024 Syphilis Abs Non-Reactive Normal Nonreactive [facility] Comment on above: Performed By: #### B TS, L509.4005, L509.8000, L100.0100, L3890.6100, L3890.6005, L900.0098, L3890.6300 #### [facility] [address] [place], [place], [id number] Laboratory - Chemistry and C hemistry - challengeOrdered By: Devora Olsen on 09-05-2024 Glucose Ql (U) Negative [facility] - UrinalysisOrder ed By: Devora Olsen on 09-05-2024 Protein Ql (U) Negative [facility] Lymphocytes Auto (Unsp spec) [#/Vol]Ordered By: Devora Olsen on 09-05-2024 Lymphocytes (Bld) [#/Vol] 1.04 10*3/uL 0.83-4.51 [facility] Lymphocytes/100 WBC Auto (Un sp spec)Ordered By: Devora Olsen on 09-05-2024 Lymphocytes/100 WBC (Bld) 10.3 % Low 19-41 [facility] MCV (mean corpuscular volume ) determinationOrdered By: Devora Olsen on 09-05-2024 MCV (RBC) [Entitic vol] 91.8 fL 81-99 [facility] Mean corpuscular hemoglobin (MCH) determinationOrdered By: Devora Olsen on 09-05-2024 MCH (RBC) [Entitic mass] 30.1 pg 27.0-32.0 [facility] Mean corpuscular hemoglobin concentration (MCHC) determinationOrdered By: Devora Olsen on 09-05-2024 MCHC (RBC) [Mass/Vol] 32.8 g/dL 32-36 [facility] Mean platelet volume determi nationOrdered By: Devora Olsen on 09-05-2024 Platelet mean volume (Bld) [Entitic vol] 11.1 fL 6.2-12.0 [facility] Monocyte percentageOrdered B y: Devora Olsen on 09-05-2024 Monocytes/100 WBC (Bld) 4.7 % 0-10 [facility] Neutrophil percentageOrdered By: Devora Olsen on 09-05-2024 Neutrophils/100 WBC (Bld) 80.6 % High 47-70 [facility] No Panel InformationOrdered By: Devora Olsen on 09-05-2024 HIV (1&2) Antibody Non-Reactive Nonreactive [facility] Comment on above: Non-ReactiveReactive Repeatedly reactive samples must be confirmed according to CDC recommended confirmatory algorithms. The subresults for either HIVAG or AHIV can be used as an aid in the selection of the confirmation algorithm for reactive samples.Send out specimens with Reactive results to [facility] for confirmation.Order the HIV antibody detection and differentiation: #[id number] Nucleated red blood cell per centageOrdered By: Devora Olsen on 09-05-2024 Nucleated RBC/100 WBC (Bld) [Ratio] 0 % 0-5 [facility] Patient Accounts Manager Office Visit Reporton 09-05-2024 Patient Accounts Manager Office Visit Report [facility], [address] [place] [address] OFFICE VISIT Date of Service: 09/05/24 MR#: [id number] Acct: [id number] Name: DARRYL BUI Rep #: [id number] : 2000 Provider: Dr. Devora scott MD Age/Sex: 24/F Location: [facility] Status: Signed Intake Vital Signs 06/07/24 15:41 08/14/24 14:11 09/05/24 15:00 Height 5 ft 3 in 5 ft 3 in 5 ft 3 in Weight: 155 lb 6 oz BMI 27.5 BP 111/75 Intake Visit Reasons: 24 WK OB *TWINS* Compressor House Operator Required: No Is patient in pain?: No Feel stressed/tense/nervous/ anxious/difficulty sleeping: not at all Allergies gluten Allergy (Severe, Verified 09/05/24 15:02) Abd cramps/diarrhea amoxicillin Allergy (Mild, Verified 09/05/24 15:02) Rash penicillin G Allergy (Mild, Verified 09/05/24 15:02) Rash pomegranate Allergy (Verified 09/05/24 15:02) Anaphylaxis Medications ???Medication ???Instructions ???Recorded ???Confirmed ???Type docosahexaenoic acid 200 mg mg PO 05/01/24 09/05/24 History capsule ( DHA) promethazine 12.5 mg tablet 12.5 mg PO QHS PRN nausea and 12/0 11/2409/05/24 Rx vomiting #30 tabs famotidine 20 mg tablet (Pepcid) 20 mg PO DAILY #30 tabs 09/05/24 0 09/05/24 Rx Last Menstrual Period: 03/10/24 Zika: Zika virus screening: Negative : No PFSH PFSH Medical History Twin History of marijuana use Trauma Migraine Autoimmune disease Family history of hemophilia History of suicidal ideation Anxiety and depression Surgical History Status post vaginal delivery Status post vaginal delivery H/O breast surgery Family History Mother Arthritis Fibromyalgia Father Epilepsy Social History adopted: No household members: children number of children: 2 current occupational status: employed current occupation: [employer] current occupational exposures/hazards: No pets and animals: No history of recent travel: Yes ( - Mar 2024) out of state: Yes out of country: No sexually active: Yes Smoking Status: Never smoker alcohol intake: never substance use type: marijuana diet: gluten free well-balanced diet: daily or most days caffeine: Yes Type: coffee Number of servings: 1 eating out: rarely or never during the past year weight has: remained stable what type of physical activity do you participate in: walking frequency: 3-4 times per week duration: < 15 minutes/day 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 Date Name GA/Weeks Outcome Route Bth Weight Gen Labor Lgth Anesthesia Del Locatn Provider FOB Unknown 2017 miscarriage spontaneous 03/15/20 [place] 39 live - full term 7lbs 12oz Female none [facility] M 10/16/22 [place] 38 live - full term 7lbs 7.4oz Female none [facility] Elenita Angulo Delivery Date: 03/15/20 Last Updated by: Shital Loving no complications Delivery Date: 10/16/22 Last Updated by: Eun Griffith COVID HPI 24 WK OB *TWINS* Details: DARRYL BUI is a 24 year old who presents for routine OB visit. OB Visit BERNADETTE Calculator Estimated Delivery Date Method Current WG Current Estimate 12/15/24 Ultrasound #1 25w 4d Other Estimates 12/15/24 LMP (Certain) 25w 4d # 2 Expected Delivery Route/Plan Labor Preferences- CB/BF classes: [] labor support person: [] labor intervention preferences: [] pain management options preferred: [] cut cord/dad catch: [] : [] PP control planned: [] discussed possible routes of delivery and associated risks: [] special requests: [] Specific Issue/Plans Covid status: [] Flu vaccine: [] Tdap vaccine: [] Rhogam: [] LARC form signed: [] Problem list reviewed and updated with the most current plan of care details and appropriate orders placed. Relevant counseling for the gestational age provided. Continue routine care and follow up unless otherwise noted in visit notes/problem list details Initial Weight: 132 lb Date -???-???-???-???-???-?? ?-???-???-???-???-???-? ??- EGA Weight BP Urine Prot -???-???-???-???-???-?? ?-???-???-???-???-???-? ??- Glucose FHR FuHt Pres Dilation -???-???-???-???-???-?? ?-???-???-???-???-???-? ?? (more content not included)... Normal [facility] Platelet countOrdered By: Luann Olsen on 09-05-2024 Platelets (Bld) [#/Vol] 186 10*3/uL 150-450 [facility] RBC Auto (Bld) [#/Vol]Ordere d By: Devora Olsen on 09-05-2024 RBC (Bld) [#/Vol] 3.42 10*6/uL Low 4.2-5.4 [facility] T. pallidum abOrdered By: Luann Olsen on 09-05-2024 Syphilis Total Antibody Non-Reactive Nonreactiv e [facility] White blood cell (WBC) count Ordered By: Devora Olsen on 09-05-2024 WBC (Bld) [#/Vol] 10.1 10*3/uL 4.4-11.0 [facility] Laboratory - Chemistry and C hemistry - challengeOrdered By: Devora Olsen on 08-14-2024 Glucose Ql (U) Negative [facility] Laboratory - UrinalysisOrder ed By: Devora Olsen on 08-14-2024 Protein Ql (U) Negative [facility] Patient Accounts Manager Office Visit Reporton 08-14-2024 Patient Accounts Manager Office Visit Report [facility] [address], [address] [place] [address] OFFICE VISIT Date of Service: 08/14/24 MR#: [id number] Acct: [id number] Name: DARRYL BUI Rep #: [id number] : 2000 Provider: Dr. Devora scott MD Age/Sex: 24/F Location: [facility] Status: Signed Intake Vital Signs 06/07/24 15:41 07/09/24 14:22 08/14/24 14:10 08/14/24 14:11 Height 5 ft 3 in 5 ft 3 in 5 ft 3 in 5 ft 3 in Weight: 150 lb BMI 26.5 BP 123/81 H Intake Visit Reasons: 20 WK OB *TWINS* Compressor House Operator Required: No Is patient in pain?: No Allergies gluten Allergy (Severe, Verified 08/14/24 14:09) Abd cramps/diarrhea amoxicillin Allergy (Mild, Verified 08/14/24 14:09) Rash penicillin G Allergy (Mild, Verified 08/14/24 14:09) Rash pomegranate Allergy (Verified 08/14/24 14:09) Anaphylaxis Medications ???Medication ???Instructions ???Recorded ???Confirmed ???Type docosahexaenoic acid 200 mg mg PO 05/01/24 08/14/24 History capsule ( DHA) promethazine 12.5 mg tablet 12.5 mg PO QHS PRN nausea and 12/0 11/2408/14/24 Rx vomiting #30 tabs Last Menstrual Period: 03/10/24 Zika: Zika virus screening: Negative : No PFSH PFSH Medical History Twin History of marijuana use Trauma Migraine Autoimmune disease Family history of hemophilia History of suicidal ideation Anxiety and depression Surgical History Status post vaginal delivery Status post vaginal delivery H/O breast surgery Family History Mother Arthritis Fibromyalgia Father Epilepsy Social History adopted: No household members: children number of children: 2 current occupational status: employed current occupation: [employer] current occupational exposures/hazards: No pets and animals: No history of recent travel: Yes ([place] - Mar 2024) out of state: Yes out of country: No sexually active: Yes Smoking Status: Never smoker alcohol intake: never substance use type: marijuana diet: gluten free well-balanced diet: daily or most days caffeine: Yes Type: coffee Number of servings: 1 eating out: rarely or never during the past year weight has: remained stable what type of physical activity do you participate in: walking frequency: 3-4 times per week duration: < 15 minutes/day 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 Date Name GA/Weeks Outcome Route Bth Weight Gen Labor Lgth Anesthesia Del Locatn Provider FOB Unknown 2016 miscarriage spontaneous 03/15/20 [place] 39 live - full term 7lbs 12oz Female none [facility] M 10/16/22 [place] 38 live - full term 7lbs 7.4oz Female none [facility] Elenita Angulo Delivery Date: 03/15/20 Last Updated by: Shital Loving no complications Delivery Date: 10/16/22 Last Updated by: Eun Griffith COVID HPI 20 WK OB *TWINS* Details: DARRYL BUI is a 24 year old who presents for routine OB visit. OB Visit BERNADETTE Calculator Estimated Delivery Date Method Current WG Current Estimate 12/15/24 Ultrasound #1 22w 3d Other Estimates 12/15/24 LMP (Certain) 22w 3d # 2 Expected Delivery Route/Plan Labor Preferences- CB/BF classes: [] labor support person: [] labor intervention preferences: [] pain management options preferred: [] cut cord/dad catch: [] : [] PP control planned: [] discussed possible routes of delivery and associated risks: [] special requests: [] Specific Issue/Plans Covid status: [] Flu vaccine: [] Tdap vaccine: [] Rhogam: [] LARC form signed: [] Problem list reviewed and updated with the most current plan of care details and appropriate orders placed. Relevant counseling for the gestational age provided. Continue routine care and follow up unless otherwise noted in visit notes/problem list details Initial Weight: 132 lb Date -???-???-???-???-???-?? ?-???-???-???-???-???-? ??- EGA Weight BP Urine Prot -???-???-???-???-???-?? ?-???-???-???-???-???-? ??- Glucose FHR FuHt Pres Dilation -???-???-???-???-???-?? ?-???-???-???-???-???-? ??- Effaced St Visit Note 05/10/24 -???-???-???-???-???-?? ?-???-???-???-???-???-? ??- 8w 5d 132 lb (+0 oz) 1 (more content not included)... Normal [facility] CNOVon 08-09-2024 OV Office Visit (GINA ) DARRYL BUI ([id number]) 2000 F Date Time Provider Department 08/09/24 4:45 PM ALFREDA DAVID During your visit today, we recorded the following information about you: Temperature Pulse Respiration Blood pressure 98.6 degrees 146/minute 16/minute 103/60 Weight 67.4 kg Alfreda David PA-C 08/09/2024 5:14 PM Signed Subjective Darryl Kwong Gissell is a 22 week 24 year old female with a past medical history of depression who presents to [facility] today for evaluation of cough and sore throat that began yesterday. No fevers., RSV, or strep pharyngitis. patient states that she has been exposed influenza. No known exposure to COVID-19 Review of Systems Constitutional: Negative for chills, diaphoresis and fever. HENT: Positive for sore throat. Negative for congestion. Eyes: Negative for discharge and redness. Respiratory: Positive for cough. Skin: Negative for rash and wound. Neurological: Negative for weakness and headaches. All other systems reviewed and are negative. Objective BP 103/60 Pulse (!) 146 Temp 37 ?C (98.6 ?F) Resp 16 Wt 67.4 kg (148 lb 11.2 oz) LMP 03/10/2024 (Exact Date) SpO2 97% BMI 26.34 kg/m? Physical Exam Vitals reviewed. Constitutional: General: She is not in acute distress. Appearance: Normal appearance. She is normal weight. She is not ill-appearing or toxic-appearing. Comments: The patient appears to be non-toxic, in no acute distress, and resting comfortably on the table. HENT: Head: Normocephalic and atraumatic. Right Ear: Tympanic membrane, ear canal and external ear normal. Left Ear: Tympanic membrane, ear canal and external ear normal. Nose: Nose normal. Mouth/Throat: Mouth: Mucous membranes are moist. Pharynx: Oropharynx is clear. No oropharyngeal exudate or posterior oropharyngeal erythema. Eyes: Extraocular Movements: Extraocular movements intact. Cardiovascular: Rate and Rhythm: Normal rate and regular rhythm. Heart sounds: Normal heart sounds. No murmur heard. No friction rub. No gallop. Pulmonary: Effort: Pulmonary effort is normal. No respiratory distress. Breath sounds: Normal breath sounds. No wheezing. Musculoskeletal: General: Normal range of motion. Cervical back: Normal range of motion. Skin: General: Skin is warm and dry. Findings: No erythema or rash. Neurological: General: No focal deficit present. Mental Status: She is alert and oriented to person, place, and time. Mental status is at baseline. Psychiatric: Mood and Affect: Mood normal. Behavior: Behavior normal. Thought Content: Thought content normal. Assessment and Plan Normal physical exam. Suspect patient symptoms are due to viral infection. Patient tested for COVID-19, influenza, and RSV. Advised to take Mucinex and use Flonase. Advised to follow-up with OB as needed for any new or worsening symptoms. ASSESSMENT/PLAN: 1. Viral URI - ICD9: 465.9, ICD10: J06.9 (primary diagnosis) - Discussed viral etiology and rationale for treatment. - Symptomatic treatment with prn analgesia - Supportive care with fluids and rest 2. Acute cough - ICD9: 786.2, ICD10: R05.1 - COVID AND INFLUENZA A/B AND RSV PCR, ROUTINE 3. Sore throat - ICD9: 462, ICD10: J02.9 - COVID AND INFLUENZA A/B AND RSV PCR, ROUTINE 4. Exposure to influenza - ICD9: V01.79, ICD10: Z20.828 - COVID AND INFLUENZA A/B AND RSV PCR, ROUTINE Medical Decision Making: Problems: Low: Acute, uncomplicated illness or injury Risk: Minimal: Minimal risk from testing/treatment Moderate: Drug management Medical Decision Making Level: 3 - Low I spent a total of 20 minutes on the date of the service which included preparing to see the patient, [id number] patient care, completing clinical documentation, performing a medically appropriate examination, counseling and educating the patient/family/caregive r, and ordering medications, tests, or procedures. SIERRA Rondon Ariana P, PA-C 08/09/2024 5:02 PM Signed Type of Remedy: Allergy Safe Medications to Take During Diphenhydramine (Benadryl?) Loratidine (Claritin?) Cetirizine (Zyrtec?) Type of Remedy: Cold and Flu Safe Medications to Take During Diphenhydramine (Benadryl)* Dextromethorphan (Robitussin?)* Guaifenesin (Mucinex? [plain]) * Vicks Vapor Rub? mentholated cream Mentholated or non-mentholated cough drops (Sugar-free cough drops for gestational diabetes should not contain blends of herbs or aspartame) Pseudoephedrine ([Sudafed?] after 1st trimester) Acetaminophen (Tylenol?)* Saline nasal drops or spray Warm salt/water gargle *Note: Do not take the SA (Sustained Action) form of these drugs or the Multi-Symptom form of these drugs. Do not use Nyquil? due to its high alcohol content. Type of Remedy: Diarrhea Sa (more content not included)... Normal [facility] Laboratory - Chemistry and C hemistry - challengeon 07-09-2024 Glucose Ql (U) Negative [facility] Laboratory - Urinalysison Protein Ql (U) Negative [facility] Patient Accounts Manager Office Visit Reporton 07-09-2024 Patient Accounts Manager Office Visit Report [facility]'s [address], [address] [place] [address] OFFICE VISIT Date of Service: 07/09/24 MR#: [id number] Acct: [id number] Name: DARRYL BUI Rep #: [id number] : 2000 Provider: Dr. Ramandeep Guillen DO Age/Sex: 24/F Location: [facility] Status: Signed Intake Vital Signs 05/10/24 14:49 06/07/24 15:41 07/09/24 14:19 07/09/24 14:22 Height 5 ft 3 in 5 ft 3 in 5 ft 3 in 5 ft 3 in Weight: 143 lb 8 oz BMI 25.4 BP 110/69 Intake Visit Reasons: 16 WK OB *twins Compressor House Operator Required: No Is patient in pain?: No Allergies gluten Allergy (Severe, Verified 07/09/24 14:19) Abd cramps/diarrhea amoxicillin Allergy (Mild, Verified 07/09/24 14:19) Rash penicillin G Allergy (Mild, Verified 07/09/24 14:19) Rash pomegranate Allergy (Verified 07/09/24 14:19) Anaphylaxis Medications ???Medication ???Instructions ???Recorded ???Confirmed ???Type docosahexaenoic acid 200 mg mg PO 05/01/24 07/09/24 History capsule ( DHA) promethazine 12.5 mg tablet 12.5 mg PO QHS PRN nausea and 06/07/24 07/09/24 Rx vomiting #30 tabs Last Menstrual Period: 03/10/24 Zika: Zika virus screening: Negative : No PFSH PFSH Medical History Twin History of marijuana use Trauma Migraine Autoimmune disease Family history of hemophilia History of suicidal ideation Anxiety and depression Surgical History Status post vaginal delivery Status post vaginal delivery H/O breast surgery Family History Mother Arthritis Fibromyalgia Father Epilepsy Social History adopted: No household members: children number of children: 2 current occupational status: employed current occupation: [employer] current occupational exposures/hazards: No pets and animals: No history of recent travel: Yes ( - Mar 2024) out of state: Yes out of country: No sexually active: Yes Smoking Status: Never smoker alcohol intake: never substance use type: marijuana diet: gluten free well-balanced diet: daily or most days caffeine: Yes Type: coffee Number of servings: 1 eating out: rarely or never during the past year weight has: remained stable what type of physical activity do you participate in: walking frequency: 3-4 times per week duration: < 15 minutes/day 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 Date Name GA/Weeks Outcome Route Bth Weight Infant Gen Labor Lgth Anesthesia Del Locatn Provider FOB Unknown 2017 miscarriage spontaneous 03/15/20 River 39 live - full term 7lbs 12oz Female none [facility] SE M 10/16/22 Ember 38 live - full term 7lbs 7.4oz Female none [facility] Elenita Angulo Delivery Date: 03/15/20 Last Updated by: Shital Loving no complications Delivery Date: 10/16/22 Last Updated by: Eun Griffith COVID HPI 16 WK OB *twins Details: DARRYL BUI is a 24 year old who presents for routine OB visit. OB Visit BERNADETTE Calculator Estimated Delivery Date Method Current WG Current Estimate 12/15/24 Ultrasound #1 17w 2d Other Estimates 12/15/24 LMP (Certain) 17w 2d # 2 Expected Delivery Route/Plan Labor Preferences- CB/BF classes: [] labor support person: [] labor intervention preferences: [] pain management options preferred: [] cut cord/dad catch: [] : [] PP control planned: [] discussed possible routes of delivery and associated risks: [] special requests: [] Specific Issue/Plans Covid status: [] Flu vaccine: [] Tdap vaccine: [] Rhogam: [] LARC form signed: [] Problem list reviewed and updated with the most current plan of care details and appropriate orders placed. Relevant counseling for the gestational age provided. Continue routine care and follow up unless otherwise noted in visit notes/problem list details Initial Weight: 132 lb Date -???-???-???-???-???-?? ?-???-???-???-???-???-? ??- EGA Weight BP Urine Prot -???-???-???-???-???-?? ?-???-???-???-???-???-? ??- Glucose FHR FuHt Pres Dilation -???-???-???-???-???-?? ?-???-???-???-???-???-? ??- Effaced St Visit Note 05/10/24 -???-???-???-???-???-?? ?-???-???-???-???-???-? ??- 8w 5d 132 lb (+0 oz) 1 (more content not included)... Normal [facility] Laboratory - Chemistry and C hemistry - challengeon 06-07-2024 Glucose Ql (U) Negative [facility] Laboratory - Urinalysison Protein Ql (U) Negative [facility] Patient Accounts Manager Office Visit Reporton 06-07-2024 Patient Accounts Manager Office Visit Report [facility]'s [address], [address] [place] [address] OFFICE VISIT Date of Service: 06/07/24 MR#: [id number] Acct: [id number] Name: DARRYL BUI Rep #: [id number] : 2000 Provider: Dr. Ramandeep Guillen DO Age/Sex: 24/F Location: [facility] [place] Status: Signed Intake Vital Signs 11/19/22 14:58 05/10/24 14:49 06/07/24 15:40 06/07/24 15:41 Height 5 ft 3 in 5 ft 3 in 5 ft 3 in 5 ft 3 in Weight: 137 lb 4 oz BMI 24.3 BP 118/77 Intake Visit Reasons: 12wk OB *twins Compressor House Operator Required: No Is patient in pain?: No Allergies gluten Allergy (Severe, Verified 06/07/24 15:40) Abd cramps/diarrhea amoxicillin Allergy (Mild, Verified 06/07/24 15:40) Rash penicillin G Allergy (Mild, Verified 06/07/24 15:40) Rash pomegranate Allergy (Verified 06/07/24 15:40) Anaphylaxis Medications ???Medication ???Instructions ???Recorded ???Confirmed ???Type docosahexaenoic acid 200 mg mg PO 05/01/24 06/07/24 History capsule ( DHA) promethazine 12.5 mg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 ?-???-???-???-???-???-? ??- Effaced St Visit Note 05/10/24 -???-???-???-???-???-?? ?-???-???-???-???-???-? ??- 8w 5d 132 lb (+0 oz) 112/59 -???-???-???-???-???-?? ?-?? (more content not included)... [facility] ED NOTEon 05-09-2024 ED NOTE HNO ID: [id number] Author: MINOO NUNEZ RN Service: ? Author Type: Registered Nurse Type: ED Notes Filed: 05/09/2024 01:24 Note Text: Pt received written and verbal discharge instructions. Pt verbalizes understanding. All questions answered. Pt education on medications and dosages. Pt verbalized understanding. Instructed pt to follow up with PCP. No acute distress noted. Instructed pt to come back to Emergency Room if symptoms worsen. Pt verbalized understanding. All belongings with pt. Normal [facility] B-HCG SerPl-aCncon HCG.beta subunit Qn 439688.0 m[IU]/mL High <5.0 [facility] Comment on above: Order Comment: Sade boss Type: BLOOD SPECIMEN Ordering Facility: [facility] Address: [address] [place] [address] Result Comment: LISSY TITATIVE HCG NORMAL RANGES Weeks of Gestation (Weeks Since LMP) 3 Weeks (5.8-71.2 mIU/mL) 4 Weeks (9.5-750 mIU/mL) 5 Weeks (217-7138 mIU/mL) 6 Weeks (158-73441 mIU/mL) 7 Weeks (3697-839915 mIU/mL) 8 Weeks (87532-001696 mIU/mL) 9 Weeks (40796-596591 mIU/mL) 10 Weeks (92166-950402 mIU/mL) 12 Weeks (60046-461045 mIU/mL) Referenced to 4th IS of [facility] Performed By: #### 2 1198-7 #### [facility] CLIA [id number] [address] [place] [address] [place] CBC W Auto Differential pane l (Bld)on 05-08-2024 Basophils (Bld) [#/Vol] 0.06 10*3/uL Normal <0.11 [facility] Comment on above: Order Comment: Sade boss Type: BLOOD SPECIMEN Ordering Facility: [facility] Address: [address] [place] [address] Performed By: #### 5 7021-8 #### [facility] CLIA [id number] [address] [place] [address] [place] Basophils/100 WBC (Bld) 0.5 % Normal [facility] Comment on above: Order Comment: Speci men Type: BLOOD SPECIMEN Ordering Facility: [facility] Address: [address] [place] [address] Performed By: #### 5 7021-8 #### [facility] CLIA [id number] [address] [place] [address] [place] Differential cell count method Nom (Bld) Auto Normal [facility] Comment on above: Order Comment: Speci men Type: BLOOD SPECIMEN Ordering Facility: [facility] Address: [address] [place] [address] Performed By: #### 5 7021-8 #### [facility] CLIA [id number] [address] [place] [address] [place] Eosinophils (Bld) [#/Vol] 10*3/uL Normal <0.46 [facility] Comment on above: Order Comment: Speci men Type: BLOOD SPECIMEN Ordering Facility: [facility] Address: [address] [place] [address] Performed By: #### 5 7021-8 #### [facility] CLIA [id number] [address] [place] Eosinophils/100 WBC (Bld) 0.1 % Normal [facility] Comment on above: Order Comment: Speci men Type: BLOOD SPECIMEN Ordering Facility: [facility] Address: [address] [place] [address] Performed By: #### 5 7021-8 #### [facility] CLIA [id number] [address] [place] Erythrocyte distribution width (RBC) [Ratio] 13.1 % Normal 11.5-15.0 [facility] Comment on above: Order Comment: Speci men Type: BLOOD SPECIMEN Ordering Facility: [facility] Address: [address] [place] [address] Performed By: #### 5 7021-8 #### [facility] CLIA [id number] [address] [place] [address] [place] Hematocrit (Bld) [Volume fraction] 38.9 % Normal 36.0-46.0 [facility] Comment on above: Order Comment: Speci men Type: BLOOD SPECIMEN Ordering Facility: [facility] Address: [address] [place] [address] Performed By: #### 5 7021-8 #### [facility] CLIA [id number] [address] [place] [address] [place] Hemoglobin (Bld) [Mass/Vol] 13.4 g/dL Normal 11.5-15.5 [facility] Comment on above: Order Comment: Speci men Type: BLOOD SPECIMEN Ordering Facility: [facility] Address: [address] [place] [address] Performed By: #### 5 7021-8 #### [facility] CLIA [id number] [address] [place] [address] [place] Immature granulocytes (Bld) [#/Vol] 0.04 10*3/uL Normal <0.10 [facility] Comment on above: Order Comment: Speci men Type: BLOOD SPECIMEN Ordering Facility: [facility] Address: [address] [place] [address] Performed By: #### 5 7021-8 #### [facility] CLIA [id number] [address] [place] Immature granulocytes/100 WBC (Bld) 0.3 % Normal [facility] Comment on above: Order Comment: Speci men Type: BLOOD SPECIMEN Ordering Facility: [facility] Address: [address] [place] [address] Performed By: #### 5 7021-8 #### [facility] CLIA [id number] [address] [place] [address] [place] Lymphocytes (Bld) [#/Vol] 0.81 10*3/uL Low 1.00-4.00 [facility] Comment on above: Order Comment: Speci men Type: BLOOD SPECIMEN Ordering Facility: [facility] Address: [address] [place] [address] Performed By: #### 5 7021-8 #### [facility] CLIA [id number] [address] [place] Lymphocytes/100 WBC (Bld) 6.1 % Normal [facility] Comment on above: Order Comment: Speci men Type: BLOOD SPECIMEN Ordering Facility: [facility] Address: [facility] [place] [address] Performed By: #### 5 7021-8 #### [facility] CLIA [id number] [address] [place] MCH (RBC) [Entitic mass] 31.2 pg Normal 26.0-34.0 [facility] Comment on above: Order Comment: Speci men Type: BLOOD SPECIMEN Ordering Facility: [facility] Address: [address] [place] [address] Performed By: #### 5 7021-8 #### [facility] CLIA [id number] [address] MCHC (RBC) [Mass/Vol] 34.4 g/dL Normal 30.5-36.0 [facility] Comment on above: Order Comment: Speci men Type: BLOOD SPECIMEN Ordering Facility: [facility] Address: [address] [place] [address] Performed By: #### 5 7021-8 #### [facility] CLIA [id number] [address] MCV (RBC) [Entitic vol] 90.7 fL Normal 80.0-100.[address] [facility] Comment on above: Order Comment: Speci men Type: BLOOD SPECIMEN Ordering Facility: [facility] Address: [address] [place] [address] Performed By: #### 5 7021-8 #### [facility] CLIA [id number] [address] Monocytes (Bld) [#/Vol] 0.58 10*3/uL Normal <0.87 [facility] Comment on above: Order Comment: Speci men Type: BLOOD SPECIMEN Ordering Facility: [facility] Address: [address] [place] [address] Performed By: #### 5 7021-8 #### [facility] CLIA [id number] [address] Monocytes/100 WBC (Bld) 4.4 % Normal [facility] Comment on above: Order Comment: Speci men Type: BLOOD SPECIMEN Ordering Facility: [facility] Address: [address] [place] [address] Performed By: #### 5 7021-8 #### [facility] CLIA [id number] [address] [place] [address] [place] Neutrophils (Bld) [#/Vol] 11.78 10*3/uL High 1.45-7.50 [facility] Comment on above: Order Comment: Speci men Type: BLOOD SPECIMEN Ordering Facility: [facility] Address: [address] [place] [address] Performed By: #### 5 7021-8 #### [facility] CLIA [id number] [address] Neutrophils/100 WBC (Bld) 88.6 % Normal [facility] Comment on above: Order Comment: Speci men Type: BLOOD SPECIMEN Ordering Facility: [facility] Address: [address] [place] [address] Performed By: #### 5 7021-8 #### [facility] CLIA [id number] [address] [place] [address] [place] Nucleated RBC (Bld) [#/Vol] 10*3/uL Normal <0.01 [facility] Comment on above: Order Comment: Speci men Type: BLOOD SPECIMEN Ordering Facility: [facility] Address: [address] [place] [address] Performed By: #### 5 7021-8 #### [facility] CLIA [id number] [address] [place] [address] [place] [facility] [place] Nucleated RBC/100 WBC (Bld) [Ratio] 0.0 /100 WBC Normal [facility] Comment on above: Order Comment: Speci men Type: BLOOD SPECIMEN Ordering Facility: [facility] Address: [address] [place] [address] Performed By: #### 5 7021-8 #### [facility] CLIA [id number] [address] [place] [address] [place] Platelet mean volume (Bld) [Entitic vol] 10.8 fL Normal 9.0-12.7 [facility] Comment on above: Order Comment: Speci men Type: BLOOD SPECIMEN Ordering Facility: [facility] Address: [address] [place] [address] Performed By: #### 5 7021-8 #### [facility] CLIA [id number] [address] [place] [address] [place] Platelets (Bld) [#/Vol] 242 10*3/uL Normal 150-400 [facility] Comment on above: Order Comment: Speci men Type: BLOOD SPECIMEN Ordering Facility: [facility] Address: [address] [place] [address] Performed By: #### 5 7021-8 #### [facility] CLIA [id number] [address] [place] [address] [place] RBC (Bld) [#/Vol] 4.29 10*6/uL Normal 3.90-5.20 [facility] Comment on above: Order Comment: Speci men Type: BLOOD SPECIMEN Ordering Facility: [facility] Address: [address] [place] [address] Performed By: #### 5 7021-8 #### [facility] CLIA [id number] [address] [place] [address] [place] WBC (Bld) [#/Vol] 13.28 10*3/uL High 3.70-11.00 [facility] Comment on above: Order Comment: Speci men Type: BLOOD SPECIMEN Ordering Facility: [facility] Address: [address] [place] [address] Performed By: #### 5 7021-8 #### [facility] CLIA [id number] [address] [place] [address] [place] [facility] [place] Comprehensive metabolic 2000 panelon 05-08-2024 Albumin [Mass/Vol] 4.2 g/dL Normal 3.9-4.9 [facility] Comment on above: Order Comment: Speci men Type: BLOOD SPECIMEN Ordering Facility: [facility] Address: [address] [place] [address] Performed By: #### 2 4323, #### [facility] CLIA [id number] [address] [place] [address] [place] ALP [Catalytic activity/Vol] 58 U/L Normal 34-123 [facility] Comment on above: Order Comment: Speci men Type: BLOOD SPECIMEN Ordering Facility: [facility] Address: [address] [place] [address] Performed By: #### 2 8, #### [facility] CLIA [id number] [address] [place] [address] [place] ALT [Catalytic activity/Vol] 10 U/L Normal 7-38 [facility] [facility] Comment on above: Order Comment: Speci men Type: BLOOD SPECIMEN Ordering Facility: [facility] Address: [address] [place] [address] Performed By: #### 2 4323-02, #### [facility] CLIA [id number] [address] [place] Anion gap [Moles/Vol] 13 mmol/L Normal 8-15 [facility] Comment on above: Order Comment: Speci men Type: BLOOD SPECIMEN Ordering Facility: [facility] Address: [address] [place] [address] Performed By: #### 2 4323-02, #### [facility] CLIA [id number] [address] [place] AST [Catalytic activity/Vol] 14 U/L Normal 13-35 [facility] Comment on above: Order Comment: Speci men Type: BLOOD SPECIMEN Ordering Facility: [facility] Address: [address] [place] [address] Performed By: #### 2 8, #### [facility] CLIA [id number] [address] [place] Bilirubin [Mass/Vol] 0.5 mg/dL Normal 0.2-1.3 [facility] Comment on above: Order Comment: Speci men Type: BLOOD SPECIMEN Ordering Facility: [facility] Address: [address] [place] [address] Performed By: #### 2 8, #### [facility] CLIA [id number] [address] [place] [address] [place] Calcium [Mass/Vol] 9.6 mg/dL Normal 8.5-10.2 [facility] Comment on above: Order Comment: Speci men Type: BLOOD SPECIMEN Ordering Facility: [facility] Address: [address] [place] [address] Performed By: #### 2 4323-8, #### [facility] CLIA [id number] [address] [place] [address] [place] Chloride [Moles/Vol] 100 mmol/L Normal 98-107 [facility] Comment on above: Order Comment: Speci men Type: BLOOD SPECIMEN Ordering Facility: [facility] Address: [address] [place] [address] Performed By: #### 2 432-8, #### [facility] CLIA [id number] [address] [place] [address] [place] CO2 [Moles/Vol] 22 mmol/L Normal 22-30 [facility] Comment on above: Order Comment: Speci men Type: BLOOD SPECIMEN Ordering Facility: [facility] Address: [address] [place] [address] Performed By: #### 2 432-8, #### [facility] CLIA [id number] [address] [place] [address] [place] Creatinine [Mass/Vol] 0.49 mg/dL Low 0.58-0.96 [facility] Comment on above: Order Comment: Speci men Type: BLOOD SPECIMEN Ordering Facility: [facility] Address: [address] [place] [address] Performed By: #### 2 4323-8, #### [facility] CLIA [id number] [address] Creatinine and Glomerular filtration rate.predicted panel (S/P/Bld) 133 mL/min/1.73m??? Normal >=60 [facility] Comment on above: Order Comment: Speci men Type: BLOOD SPECIMEN Ordering Facility: [facility] Address: [address] [place] [address] Result Comment: Isabel mated Glomerular Filtration Rate (eGFR) is calculated using the 2020 CKD-EPI creatinine equation. This equation utilizes serum creatinine, sex, and age as parameters. The creatinine assay has traceable calibration to isotope dilution-mass spectrometry. Refer to KDIGO guidelines for clinical interpretation. In patients with unstable renal function, e.g. those with acute kidney injury, the eGFR may not accurately reflect actual GFR. Performed By: #### 2 4323-8, #### [facility] CLIA [id number] [address] [place] [address] [place] Glucose [Mass/Vol] 93 mg/dL Normal 74-99 [facility] Comment on above: Order Comment: Sade boss Type: BLOOD SPECIMEN Ordering Facility: [facility] Address: [address] [place] [address] Result Comment: The [place] [employer] (ADA) provides guidance for cutoff values for fasting glucose and random glucose. The ADA defines fasting as no caloric intake for at least 8 hours. Fasting plasma glucose results between 100 to 125 mg/dL indicate increased risk for diabetes (prediabetes). Fasting plasma glucose results greater than or equal to 126 mg/dL meet the criteria for diagnosis of diabetes. In the absence of unequivocal hyperglycemia, results should be confirmed by repeat testing. In a patient with classic symptoms of hyperglycemia or hyperglycemic crisis, random plasma glucose results greater than or equal to 200 mg/dL meet the criteria for diagnosis of diabetes. Reference: Standards of Medical Care in Diabetes 2016, [place] [employer]. Diabetes Care. 2016.39(Suppl 1). Performed By: #### 2 4323-8, #### [facility] CLIA [id number] [address] [place] [address] [place] Potassium [Moles/Vol] 4.3 mmol/L Normal 3.7-5.1 [facility] Comment on above: Order Comment: Sade boss Type: BLOOD SPECIMEN Ordering Facility: [facility] Address: [address] [id number] Performed By: #### 2 4323-8, #### [facility] CLIA [id number] [address] Protein [Mass/Vol] 7.6 g/dL Normal 6.3-8.0 [facility] Comment on above: Order Comment: Speci men Type: BLOOD SPECIMEN Ordering Facility: [facility] Address: [address] [place] [address] Performed By: #### 2 4323-8, 35816-7 #### [facility] CLIA [id number] [address] Sodium [Moles/Vol] 135 mmol/L Low 136-144 [facility] Comment on above: Order Comment: Speci men Type: BLOOD SPECIMEN Ordering Facility: [facility] Address: [address] [place] [address] Performed By: #### 2 4323-8, #### [facility] CLIA [id number] [address] Urea nitrogen [Mass/Vol] 7 mg/dL Normal 7-21 [facility] Comment on above: Order Comment: Speci men Type: BLOOD SPECIMEN Ordering Facility: [facility] Address: [address] [place] [address] Performed By: #### 2 4323-8, 46099-9 #### [facility] CLIA [id number] [address] ED NOTEon 05-08-2024 ED NOTE HNO ID: [id number] Author: LAURO ROCHA RN Service: Nursing Author Type: Registered Nurse Type: ED Notes Filed: 05/08/2024 23:31 Note Text: Handoff report given to Stas KANG. [facility] ED NOTE HNO ID: [id number] Author: LAURO ROCHA RN Service: Nursing Author Type: Registered Nurse Type: ED Notes Filed: 05/08/2024 22:56 Note Text: Pt to ULTRASOUND with TECH [facility] ED PROV NOTEon 05-08-2024 ED PROV NOTE HNO ID: [id number] Author: AMBER BECERRA MD Service: Emergency Medicine Author Type: Physician Type: ED Provider Notes Filed: 05/09/2024 02:12 Note Text: ED Provider Note Patient Name: Darryl Bui : 2000 SERVICE DATE: 05/08/24 History Patient presents with: Nausea AND Vomiting : 8 weeks N/V since Tuesday no complications with first apt this 24 year old female EGA 8 weeks to ED c/o nausea and vomiting. Persistent nausea and vomiting x 3 days. Not yet seen OB. Denies abdominal pain, vaginal bleeding. Denies any complications with her first 2 pregnancies. History provided by: Medical records and patient PAST MEDICAL HISTORY Diagnosis Date Anxiety and depression on celexa Breast mass 2016 Celiac disease Gastroesophageal reflux disease Migraine headache Migraines Psychiatric disorder depression PAST SURGICAL HISTORY Procedure Laterality Date BIOPSY BREAST OPEN INCISIONAL Left 10/30/2018 fibrocystic change with numerous apocrine cysts, ductal cysts, usual ductal hyperplasia, multiple benign intraductal papillomas and duct ectasia NONE US BREAST NEEDLE CORE BIOPSY LT Left 2017 fibrocystic changes FAMILY HISTORY Problem Relation Age of Onset other (epilepsie [Other]) Father Social History Tobacco Use Smoking status: Never Smokeless tobacco: Never Vaping Use Vaping status: current everyday user Substances: Nicotine Substance and Sexual Activity Alcohol use: Yes Comment: OCCASIONAL Drug use: No Sexual activity: Yes Partners: Male control/protection: Pill ALLERGIES Allergen Reactions Amoxicillin Rash Penicillins Rash Gluten Unknown Pomegranate Anaphylaxis Review of Systems Constitutional: Negative for chills and fever. Respiratory: Negative. Cardiovascular: Negative. Gastrointestinal: Positive for nausea and vomiting. Genitourinary: Negative. Musculoskeletal: Negative. Skin: Negative. Physical Exam Vitals [05/08/242054] BP Pulse Temp Temp src Resp SpO2 Weight Height 103/67 (!) 98 36.6 ?C (97.9 ?F) Temporal 18 100 % 61.2 kg (135 lb) -- Physical Exam Vitals and nursing note reviewed. Constitutional: Appearance: Normal appearance. HENT: Head: Normocephalic and atraumatic. Mouth/Throat: Mouth: Mucous membranes are dry. Cardiovascular: Rate and Rhythm: Normal rate. Pulses: Normal pulses. Pulmonary: Effort: Pulmonary effort is normal. Abdominal: Palpations: Abdomen is soft. Skin: General: Skin is warm and dry. Capillary Refill: Capillary refill takes less than 2 seconds. Neurological: Mental Status: She is alert and oriented to person, place, and time. Diagnostic Testing ED Labs Ordered and Reviewed COMPREHENSIVE METABOLIC PANEL - Abnormal; Notable for the following components: Result Value Ref Range Creatinine 0.49 (*) 0.58 - 0.96 mg/dL Sodium 135 (*) 136 - 144 mmol/L All other components within normal limits COMPLETE BLOOD COUNT AND DIFFERENTIAL - Abnormal; Notable for the following components: WBC 13.28 (*) 3.70 - 11.00 k/uL Abs Neut 11.78 (*) 1.45 - 7.50 k/uL Abs Lymph 0.81 (*) 1.00 - 4.00 k/uL All other components within normal limits HCG QUANTITATIVE - Abnormal; Notable for the following components: hCG Quantitative, Blood 273,741.0 (*) <5.0 mIU/mL All other components within normal limits URINALYSIS WITH MICROSCOPIC, REFLEX CULTURE - Abnormal; Notable for the following components: Bilirubin, Urine 1+ (*) Negative Ketones, Urine 3+ (*) Negative Specific [place], Ur >=1.030 (*) 1.005 - 1.030 Protein, Urine 1+ (*) Negative Bacteria Few (*) None Seen /HPF All other components within normal limits MAGNESIUM - Normal COVID AND INFLUENZA A/B AND RSV PCR, EXPEDITED - Normal Narrative: Reference Range (the expected result in uninfected individuals): Not detected TYPE + SCREEN US PREG TRANSABD <14 WEEKS LTD (Results Pending) US PREG TRANSVAG <14 WEEKS (Results Pending) Procedures ED Course / Clinical Impression Clinical Impressions as of 05/09/24 0211 Hyperemesis gravidarum 8 weeks gestation of Twin , antepartum, unspecified multiple gestation type MDM / Disposition / Plan 24-year-old female presents to ED complaint of nausea and vomiting. 8 weeks , persistent nausea and vomiting not improving with supportive care. Zofran given. UA negative for infection, positive for ketones.. Viral swab negative. Mild leukocytosis but no anemia. Electrolytes and renal function within normal limits. hCG 273,741. IV fluids and Reglan given for persistent symptoms. Ultrasound was obtained and pending. History and Record Review External record(s) reviewed: CareEverywhere. Findings from review of CareEverywhere records: h/o high risk Differential Diagnoses - hyperemesis - IUP - electrolyte abnormality is less likely for the followin (more content not included)... Normal [facility] ED Triage Noteon 05-08-2024 ED Triage Note HNO ID: [id number] Author: RAMANDEEP VICENTE DO Service: Emergency Medicine Author Type: Physician Type: ED Triage Notes Filed: 05/08/2024 20:57 Note Text: ED INTAKE NOTE Patient Name: Darryl Bui Service Date: 05/08/24 BRIEF HPI: This is a 24 year old female who presents to the ED with: 8 weeks . Has not seen OB yet. Since Tuesday +N/V. Has had fever, cough, nasal congestion. BRIEF EXAM: BP 103/67 Pulse 98 Temp (Src) 97.9 (Temporal) Resp 18 Wt 135 lb (61.2kg) SpO2 100% LMP 03/10/2024 NAD Awake and Alert Non labored breathing INITIAL WORKUP AND DECISION MAKING: Orders Placed This Encounter COMP METABOLIC PANEL (BMP+LFT) CBC + DIFF MAGNESIUM BLD HCG Quantitative ondansetron (PF) 4 mg injection (ZOFRAN) Viral swabs Provider examination performed via virtual platform with assistance from bedside clinician. SIGNATURE: Ramandeep Vicente DO [facility] Magnesium SerPl-mCncon 05-08 Magnesium [Mass/Vol] 1.8 mg/dL Normal 1.7-2.3 [facility] Comment on above: Order Comment: Speci men Type: BLOOD SPECIMEN Ordering Facility: [facility] Address: [address] [place] [address] Performed By: #### 2 4323-8, 30898-5 #### [facility] CLIA [id number] [address] [place] [address] [place] TYPE + SCREEN PRENATALon ABO O [facility] Comment on above: Order Comment: Speci men Type: BLOOD SPECIMEN Ordering Facility: [facility] Address: [address] [place] [address] Performed By: #### T SPN #### [facility] CLIA [id number] [address] [place] [address] [place] Rh Nom (Bld) Positive [facility] Comment on above: Order Comment: Speci men Type: BLOOD SPECIMEN Ordering Facility: [facility] Address: [address] [id number] Performed By: #### T SPN #### [facility] CLIA [id number] [address] [id number] [facility] TYPE AND SCREEN EXPIRATION 05/11/2024 23:59 Normal [facility] Comment on above: Order Comment: Speci men Type: BLOOD SPECIMEN Ordering Facility: [facility] Address: [address] [id number] Performed By: #### T SPN #### [facility] CLIA [id number] [address] [id number] [facility] US PREG TRANSABD <14 WKS LTD on 05-08-2024 US PREG TRANSABD <14 WKS LTD * * *Final Report* * * DATE OF EXAM: May 08 2024 11:38PM MDU 1035 - US PREG TRANSABD <14 WKS LTD / PROCEDURE REASON: Pelvic pain, positive beta-HCG, ob gyn physician assistant etiology suspected * * * * Physician Interpretation * * * * EXAMINATION: FIRST TRIMESTER TRANSVAGINAL AND TRANSABDOMINAL PELVIC ULTRASOUND CLINICAL HISTORY: . Pelvic pain. Nausea and vomiting. Positive beta-hCG measuring 273,741. LMP 03/10/2024. Gestational age by LMP 8 weeks, 3 days. TECHNIQUE: Sonography of the pelvis was performed by transabdominal and transvaginal techniques. Images were obtained and stored in a permanent archive. MQ: USOB1_1 COMPARISON: None. RESULT: Limited exam due to patient intolerance related to pain. Uterus: - Orientation: Anteverted - Size: 12.7 x 10.4 x 8.0 cm - Myometrium: homogeneous echogenicity - Cervix: Appears closed. Gestation: -Intrauterine gestational sac: Two present. Fetus A: -Gestational sac: 4.6 x 2.1 x 4.9 cm - Yolk sac: 0.2 cm - Embryo: Present. - [place] rump length: 1.71 cm, corresponding gestational age 8 weeks, 2 days -Gestational heart rate: present 181 bpm Fetus B: - Gestational sac: 4.5 x 5.0 x 2.6 cm - Yolk sac: 0.3 cm - Embryo: Present - [place] rump length: 1.84 cm, corresponding gestational age 8 weeks, 3 days -Gestational heart rate: present 172 bpm -Subgestational hematoma: Probable small to moderate-sized subgestational hematoma Right ovary: -Not identified. Left ovary: -Not identified. Pelvis free fluid: None. IMPRESSION: Live twin intrauterine gestation measuring 8 weeks 3 days by crown rump length. Probable small to moderate-sized subgestational hematoma. Attention on follow-up. Gestational heart rate of fetus a measuring 181 bpm. Gestational heart rate of fetus B measuring 172 bpm. Borderline tachycardia. Close obstetric follow-up is recommended. Ovaries are not identified. Attention on follow-up. Limited exam as detailed. Welt Slasher: PSCB Transcribe Date/Time: May 09 2024 12:45A Dictated by : SHALINI ACOSTA DO This examination was interpreted and the report reviewed and electronically signed by: SHALINI ACOSTA DO on May 09 2024 12:59AM EST [id number] [facility] US PREG TRANSVAG <14 WEEKSon 05-08-2024 US PREG TRANSVAG <14 WEEKS * * *Final Report* * * DATE OF EXAM: May 08 2024 11:38PM MDU 1034 - US PREG TRANSVAG <14 WEEKS / PROCEDURE REASON: Pelvic pain, positive beta-HCG, ob gyn physician assistant etiology suspected * * * * Physician Interpretation * * * * EXAMINATION: FIRST TRIMESTER TRANSVAGINAL AND TRANSABDOMINAL PELVIC ULTRASOUND CLINICAL HISTORY: . Pelvic pain. Nausea and vomiting. Positive beta-hCG measuring 273,741. LMP 03/10/2024. Gestational age by LMP 8 weeks, 3 days. TECHNIQUE: Sonography of the pelvis was performed by transabdominal and transvaginal techniques. Images were obtained and stored in a permanent archive. MQ: USOB1_1 COMPARISON: None. RESULT: Limited exam due to patient intolerance related to pain. Uterus: - Orientation: Anteverted - Size: 12.7 x 10.4 x 8.0 cm - Myometrium: homogeneous echogenicity - Cervix: Appears closed. Gestation: -Intrauterine gestational sac: Two present. Fetus A: -Gestational sac: 4.6 x 2.1 x 4.9 cm - Yolk sac: 0.2 cm - Embryo: Present. - [place] rump length: 1.71 cm, corresponding gestational age 8 weeks, 2 days -Gestational heart rate: present 181 bpm Fetus B: - Gestational sac: 4.5 x 5.0 x 2.6 cm - Yolk sac: 0.3 cm - Embryo: Present - [place] rump length: 1.84 cm, corresponding gestational age 8 weeks, 3 days -Gestational heart rate: present 172 bpm -Subgestational hematoma: Probable small to moderate-sized subgestational hematoma Right ovary: -Not identified. Left ovary: -Not identified. Pelvis free fluid: None. IMPRESSION: Live twin intrauterine gestation measuring 8 weeks 3 days by crown rump length. Probable small to moderate-sized subgestational hematoma. Attention on follow-up. Gestational heart rate of fetus a measuring 181 bpm. Gestational heart rate of fetus B measuring 172 bpm. Borderline tachycardia. Close obstetric follow-up is recommended. Ovaries are not identified. Attention on follow-up. Limited exam as detailed. Welt Slasher: URVASHI Transcribe Date/Time: May 09 2024 12:45A Dictated by : SHALINI ACOSTA DO This examination was interpreted and the report reviewed and electronically signed by: SHALINI ACOSTA DO on May 09 2024 12:59AM EST [id number] Normal [facility] Urinalysis complete panel (U )on 05-08-2024 Bacteria LM.HPF (Urine sed) [#/Area] Few Abnormal None Seen [facility] Comment on above: Order Comment: Speci men Type: URINE SPECIMEN Ordering Facility: [facility] Address: [address] [place] [address] Performed By: #### 2 4356-8 #### [facility] CLIA [id number] [address] [place] [address] [place] Bilirubin Ql (U) 1+ Abnormal Negative [facility] Comment on above: Order Comment: Speci men Type: URINE SPECIMEN Ordering Facility: [facility] Address: [address] [place] [address] Result Comment: Sugg est correlation with clinical findings and serum bilirubin if clinically indicated. Performed By: #### 2 4356-8 #### [facility] CLIA [id number] [address] [place] [address] [place] Clarity (Unsp spec) Clear Normal Clear [facility] Comment on above: Order Comment: Speci men Type: URINE SPECIMEN Ordering Facility: [facility] Address: [address] [place] [address] Performed By: #### 2 4356-8 #### [facility] CLIA [id number] [address] [place] Color (U) Yellow Normal Yellow [facility] Comment on above: Order Comment: Speci men Type: URINE SPECIMEN Ordering Facility: [facility] Address: [address] [place] [address] Performed By: #### 2 4356-8 #### [facility] CLIA [id number] [address] [place] Epithelial cells LM.HPF (Urine sed) [#/Area] Moderate Normal [facility] Comment on above: Order Comment: Speci men Type: URINE SPECIMEN Ordering Facility: [facility] Address: [address] [place] [address] Performed By: #### 2 4356-8 #### [facility] CLIA [id number] [address] [place] Glucose Test strip (U) [Mass/Vol] Negative Normal Negative [facility] Comment on above: Order Comment: Speci men Type: URINE SPECIMEN Ordering Facility: [facility] Address: [address] [place] [address] Performed By: #### 2 4356-8 #### [facility] CLIA [id number] [address] [place] Hemoglobin Ql (U) Negative Normal Negative [facility] Comment on above: Order Comment: Speci men Type: URINE SPECIMEN Ordering Facility: [facility] Address: [address] [place] [address] Performed By: #### 2 4356-8 #### [facility] CLIA [id number] [address] [place] Ketones Ql (U) 3+ Abnormal Negative [facility] Comment on above: Order Comment: Speci men Type: URINE SPECIMEN Ordering Facility: [facility] Address: [address] [place] [address] Performed By: #### 2 4356-8 #### [facility] CLIA [id number] [address] Leukocyte esterase Test strip Ql (U) Negative Normal Negative [facility] Comment on above: Order Comment: Speci men Type: URINE SPECIMEN Ordering Facility: [facility] Address: [address] [place] [address] Performed By: #### 2 4356-8 #### [facility] CLIA [id number] [address] Nitrite Ql (U) Negative Normal Negative [facility] Comment on above: Order Comment: Speci men Type: URINE SPECIMEN Ordering Facility: [facility] Address: [address] [place] [address] Performed By: #### 2 4356-8 #### [facility] CLIA [id number] [address] pH (U) 6.0 [pH] Normal 5.0-8.0 [facility] Comment on above: Order Comment: Speci men Type: URINE SPECIMEN Ordering Facility: [facility] Address: [address] [place] [address] Performed By: #### 2 4356-8 #### [facility] CLIA [id number] [address] Protein (U) [Mass/Vol] 1+ Abnormal Negative [facility] Comment on above: Order Comment: Speci men Type: URINE SPECIMEN Ordering Facility: [facility] Address: [address] [place] [address] Performed By: #### 2 4356-8 #### [facility] CLIA [id number] [address] RBC LM.HPF (Urine sed) [#/Area] 0-3 /HPF Normal 0-3 /HPF [facility] Comment on above: Order Comment: Speci men Type: URINE SPECIMEN Ordering Facility: [facility] Address: [address] [place] [address] Performed By: #### 2 4356-8 #### [facility] CLIA [id number] [address] Specific gravity (U) [Rel density] >=1.030 High 1.005-1.030 [facility] Comment on above: Order Comment: Speci men Type: URINE SPECIMEN Ordering Facility: [facility] Address: [address] [place] [address] Performed By: #### 2 4356-8 #### [facility] CLIA [id number] [address] Urobilinogen Ql (U) 0.2 EU/dL Normal 0.2-1.0 EU/dL [facility] Comment on above: Order Comment: Speci men Type: URINE SPECIMEN Ordering Facility: [facility] Address: [address] [place] [address] Performed By: #### 2 4356-8 #### [facility] CLIA [id number] [address] WBC LM.HPF (Urine sed) [#/Area] 0-5 /HPF Normal 0-5 /HPF [facility] Comment on above: Order Comment: Speci men Type: URINE SPECIMEN Ordering Facility: [facility] Address: [address] [place] [address] Performed By: #### 2 4356-8 #### [facility] CLIA [id number] [address] ALLIED HEALTHon 11-21-2023 ALLIED HEALTH HNO ID: [id number] Author: AMBER ALLISON RT(R) Service: ? Author Type: Technologist Type: Allied Health Filed: 11/21/2023 19:38 Note Text: Radiology Service Progress Note PATIENT NAME: Darryl Bui DATE OF SERVICE: November 21, 2023 TIME: 7:38 PM PATIENT IDENTITY VERIFICATION COMPLETED USING TWO (2) IDENTIFIERS: Name and Date of confirmed by patient verbally. FALL SCREENING: Has the patient had 2 falls in the last year or 1 fall with injury or currently using an Ambulatory Assistive Device (Walker, Cane, Wheelchair, Crutches, etc.)? No PATIENT GENDER DATA: Female. status: : No status: NO. PATIENT RELEVANT IMPLANT DATA REVIEWED: Not Applicable PATIENT PRESENTS WITH AN IMPLANTABLE OR ATTACHED SCHOOL OCCUPATIONAL THERAPIST: No RADIOLOGY DEPARTMENT: General X-ray: Exam(s) Completed: Lower Extremity X-Ray(s): Knee, AP / LAT Right PERIPHERAL IV DATA: Not applicable SIGNED BY: Amber Allison, (R) November 21, 2023 7:[address] [facility] ED PROV NOTEon 11-21-2023 ED PROV NOTE HNO ID: [id number] Author: AMBER BECERRA MD Service: Emergency Medicine Author Type: Physician Type: ED Provider Notes Filed: 11/22/2023 03:57 Note Text: ED Provider Note Patient Name: Darryl Bui : 2000 SERVICE DATE: 11/21/23 History Patient presents with: Knee Injury: RIGHT KNEE HYPEREXTENDED TODAY AND NOW HAVING PAIN WITH WALKING, LIMPING FROM THE LOBBY 23-year-old female. Comes emerged from today for right knee injury. Reports that she hyperextended the knee when slipping on water. She never fell to the ground. Reports that she has injured this knee previously but has never had any surgeries on it. Denies any fevers or chills. Again denies any other injuries. PAST MEDICAL HISTORY Diagnosis Date Anxiety and depression on celexa Breast mass 2016 Celiac disease Gastroesophageal reflux disease Migraine headache Migraines Psychiatric disorder depression PAST SURGICAL HISTORY Procedure Laterality Date BIOPSY BREAST OPEN INCISIONAL Left 10/30/2018 fibrocystic change with numerous apocrine cysts, ductal cysts, usual ductal hyperplasia, multiple benign intraductal papillomas and duct ectasia NONE US BREAST NEEDLE CORE BIOPSY LT Left 2017 fibrocystic changes FAMILY HISTORY Problem Relation Age of Onset other (epilepsie [Other]) Father Social History Tobacco Use Smoking status: Never Smokeless tobacco: Never Vaping Use Vaping Use: current everyday user Substances: Nicotine Substance and Sexual Activity Alcohol use: Yes Comment: OCCASIONAL Drug use: No Sexual activity: Yes Partners: Male control/protection: Pill ALLERGIES Allergen Reactions Amoxicillin Rash Penicillins Rash Gluten Unknown Pomegranate Anaphylaxis Review of Systems Constitutional: Negative for chills, diaphoresis, fatigue and fever. HENT: Negative for congestion, ear pain, sinus pain and sore throat. Eyes: Negative for photophobia, pain, redness and visual disturbance. Respiratory: Negative for cough, chest tightness and shortness of breath. Cardiovascular: Negative for chest pain, palpitations and leg swelling. Gastrointestinal: Negative for abdominal distention, abdominal pain, constipation, diarrhea, nausea and vomiting. Genitourinary: Negative for difficulty urinating, dysuria, flank pain, frequency and urgency. Musculoskeletal: Negative for back pain, neck pain and neck stiffness. Right knee pain Skin: Negative for color change, rash and wound. Neurological: Negative for dizziness, syncope, light-headedness and headaches. Psychiatric/Behavioral: Negative for agitation, behavioral problems and confusion. Physical Exam Vitals [11/21/231919] BP Pulse Temp Temp src Resp SpO2 Weight Height 111/69 82 36.4 ?C (97.5 ?F) Temporal 16 97 % 61.2 kg (135 lb) -- Physical Exam Vitals and nursing note reviewed. Constitutional: Appearance: She is well-developed. She is not diaphoretic. HENT: Head: Normocephalic and atraumatic. Right Ear: External ear normal. Left Ear: External ear normal. Eyes: General: No scleral icterus. Right eye: No discharge. Left eye: No discharge. Conjunctiva/sclera: Conjunctivae normal. Pupils: Pupils are equal, round, and reactive to light. Neck: Vascular: No JVD. Trachea: No tracheal deviation. Cardiovascular: Rate and Rhythm: Normal rate and regular rhythm. Heart sounds: Normal heart sounds. No murmur heard. No friction rub. No gallop. Pulmonary: Effort: Pulmonary effort is normal. No respiratory distress. Breath sounds: Normal breath sounds. No stridor. No wheezing or rales. Chest: Chest wall: No tenderness. Abdominal: General: Bowel sounds are normal. There is no distension. Palpations: Abdomen is soft. There is no mass. Tenderness: There is no abdominal tenderness. There is no guarding or rebound. Musculoskeletal: General: No tenderness or deformity. Normal range of motion. Cervical back: Normal range of motion and neck supple. Comments: The right knee appears normal generally. Extensor mechanism intact. Little bit of pain to palpation over the medial aspect but no obvious dislocations or fractures or other deformities. Pulses intact. Sensation intact. Skin: General: Skin is warm. Capillary Refill: Capillary refill takes less than 2 seconds. Coloration: Skin is not pale. Findings: No rash. Neurological: Mental Status: She is alert and oriented to person, place, and time. Sensory: No sensory deficit. Motor: No abnormal muscle tone. Psychiatric: Behavior: Behavior normal. Thought Content: Thought content normal. Judgment: Judgment normal. Diagnostic Testing ED Labs Ordered and Reviewed - No data to display Procedures ED Course / Clinical Impression Clinical Impressions as of 11/22/23 0354 Injury of right knee, initial encounter Acute pain of right knee MDM / Disposition / Plan Patient presents with the aforementioned. Had (more content not included)... Normal [facility] XR KNEE 4V AP/LAT/OBLS RTon 11-21-2023 XR KNEE 4V AP/LAT/OBLS RT * * *Final Report* * * DATE OF EXAM: Nov 21 2023 7:37PM MDX [id number] - XR KNEE 4V AP/LAT/OBLS RT / PROCEDURE REASON: Trauma * * * * Physician Interpretation * * * * EXAM TITLE: XR KNEE 4V AP/LAT/OBLS RT EXAM DATE/TIME: 11/21/2023 7:37 PM COMPARISON: None. CLINICAL INDICATION/HISTORY: Trauma. TECHNIQUE: AP, oblique and lateral views of the right knee are presented. FINDINGS: No acute fractures or subluxations are noted. The joint spaces are well preserved. There is trace joint effusion. The mineralization of the bones is normal. There is no significant soft tissue swelling. IMPRESSION: No acute radiographic abnormalities seen in the right knee. Welt Slasher: URVASHI Transcribe Date/Time: Nov 21 2023 8:35P Dictated by : CARMEN PATINO MD This examination was interpreted and the report reviewed and electronically signed by: CARMEN PATINO MD on Nov 21 2023 8:36PM EST [id number] Normal [facility] Absolute lymphocyte countOrd ered By: Dr. Hinds on 10-16-2022 Lymphocytes Auto (Unsp spec) [#/Vol] 1.05 10*3/uL 0.83-4.51 [facility] Basophil percentageOrdered B y: Dr. Hinds on 10-16-2022 Basophils/100 WBC (Bld) 0.4 % 0-1 [facility] Eosinophils/100 WBC (Bld) 0.2 % 0-5 [facility] Neutrophils (Bld) [#/Vol] 11.5 10*3/uL 2.0-7.7 [facility] Neutrophils/100 WBC (Bld) 84.1 % 47-70 [facility] WBC (Bld) [#/Vol] 13.7 10*3/uL 4.4-11.0 [facility] Blood erythrocytes count (nu mber/volume)Ordered By: Dr. Hinds on 10-16-2022 RBC (Bld) [#/Vol] 4.34 10*6/uL 4.2-5.4 [facility] Blood hemoglobin measurement (mass/volume)Ordered By: Dr. Hinds on 10-16-2022 Hemoglobin (Bld) [Mass/Vol] 13.2 g/dL 12.0-15.0 [facility] Blood lymphocytes/100 leukoc ytesOrdered By: Dr. Hinds on 10-16-2022 Lymphocytes/100 WBC (Bld) 7.7 % 19-41 [facility] Blood monocytes/100 leukocyt esOrdered By: Dr. Hinds on 10-16-2022 Monocytes/100 WBC (Bld) 6.4 % 0-10 [facility] Blood platelet mean volumeOr dered By: Dr. Hinds on 10-16-2022 Platelet mean volume (Bld) [Entitic vol] 11.6 fL 6.2-12.0 [facility] Determination of erythrocyte mean corpuscular volume (MCV)Ordered By: Dr. Hinds on 10-16-2022 MCV (RBC) [Entitic vol] 89.2 fL 81-99 [facility] Hematocrit Auto (Bld) [Volum e fraction]Ordered By: Dr. Hinds on 10-16-2022 Hematocrit (Bld) [Volume fraction] 38.7 % 37-47 [facility] Laboratory - Hematology and Cell countsOrdered By: Dr. Hinds on 10-16-2022 Erythrocyte distribution width (RBC) [Entitic vol] 47.3 fL 35.1-43.9 [facility] Erythrocyte distribution width (RBC) [Ratio] 14.6 % 11.6-14.6 [facility] Immature granulocytes/100 WBC (Bld) 1.200 % 0.0-0.9 [facility] Comment on above: IG% - Immature Granu locytes (promyelocytes, myelocytes and metamyelocytes) > 1% indicates that a LEFT SHIFT is Present. MCH (RBC) [Entitic mass] 30.4 pg 27.0-32.0 [facility] Nucleated RBC/100 WBC (Bld) [Ratio] 0 % 0-5 [facility] MCHC Auto (RBC) [Mass/Vol]Or dered By: Dr. Hinds on 10-16-2022 MCHC (RBC) [Mass/Vol] 34.1 g/dL 32-36 [facility] Platelets bldOrdered By: Dr. Hinds on 10-16-2022 Platelets (Bld) [#/Vol] 185 10*3/uL 150-450 [facility] Serum Treponema species anti body detectionOrdered By: Dr. Hinds on 10-16-2022 Treponema sp Ab Ql (S) Non-Reactive [facility] Laboratory - Chemistry and C hemistry - challengeon 10-08-2022 Glucose Ql (U) Negative [facility] Laboratory - Urinalysison Protein Ql (U) Negative [facility] No Panel InformationOrdered By: Dr. Olsen on 10-04-2022 Group B Streptococcus Culture Group B Beta Streptococcus is not isolated. [facility] Laboratory - Chemistry and C hemistry - challengeon 10-01-2022 Glucose Ql (U) Negative [facility] Laboratory - Urinalysison Protein Ql (U) Negative [facility] No Panel InformationOrdered By: Dr. Hinds on 09-01-2022 Vaginal Amniotic Fluid Detection Negative Negative [facility] Comment on above: Amniotic fluid not p resent indicates No Rupture of FetalMembranes at time of specimen collection. Laboratory - Chemistry and C hemistry - challengeon 08-31-2022 Glucose Ql (U) Negative [facility] Laboratory - Urinalysison Protein Ql (U) Negative [facility] Laboratory - Chemistry and C hemistry - challengeon 08-20-2022 Glucose Ql (U) Negative [facility] Laboratory - Urinalysison Protein Ql (U) Negative [facility] Absolute lymphocyte countOrd ered By: Dr. Hinds on 08-16-2022 Lymphocytes Auto (Unsp spec) [#/Vol] 1.15 10*3/uL 0.83-4.51 [facility] Basophil percentageOrdered B y: Dr. Hinds on 08-16-2022 Basophils/100 WBC (Bld) 0.5 % 0-1 [facility] Eosinophils/100 WBC (Bld) 0.8 % 0-5 [facility] Neutrophils (Bld) [#/Vol] 8.3 10*3/uL 2.0-7.7 [facility] Neutrophils/100 WBC (Bld) 81.1 % 47-70 [facility] WBC (Bld) [#/Vol] 10.3 10*3/uL 4.4-11.0 [facility] Blood erythrocytes count (nu mber/volume)Ordered By: Dr. Hinds on 08-16-2022 RBC (Bld) [#/Vol] 3.84 10*6/uL 4.2-5.4 [facility] Blood hemoglobin measurement (mass/volume)Ordered By: Dr. Hinds on 08-16-2022 Hemoglobin (Bld) [Mass/Vol] 11.8 g/dL 12.0-15.0 [facility] Blood lymphocytes/100 leukoc ytesOrdered By: Dr. Hinds on 08-16-2022 Lymphocytes/100 WBC (Bld) 11.2 % 19-41 [facility] Blood monocytes/100 leukocyt esOrdered By: Dr. Hinds on 08-16-2022 Monocytes/100 WBC (Bld) 4.6 % 0-10 [facility] Blood platelet mean volumeOr dered By: Dr. Hinds on 08-16-2022 Platelet mean volume (Bld) [Entitic vol] 11.1 fL 6.2-12.0 [facility] Determination of erythrocyte mean corpuscular volume (MCV)Ordered By: Dr. Hinds on 08-16-2022 MCV (RBC) [Entitic vol] 92.4 fL 81-99 [facility] Gestational diabetes screen 1-hour screen with 50g oral glucose loadOrdered By: Dr. Hinds on 08-16-2022 Glucose 1 Hr post 50 g glucose PO [Mass/Vol] 113 mg/dL 70-140 [facility] HIV 1 and HIV-2 antibody ass ay with HIV-1 p24 antigen detectionOrdered By: Dr. Hinds on 08-16-2022 HIV 1+2 Ab+HIV1 p24 Ag IA Ql Non-Reactive Nonreactive [facility] Hematocrit Auto (Bld) [Volum e fraction]Ordered By: Dr. Hinds on 08-16-2022 Hematocrit (Bld) [Volume fraction] 35.5 % 37-47 [facility] Laboratory - Chemistry and C hemistry - challengeon 08-16-2022 Glucose Ql (U) Negative [facility] Laboratory - Hematology and Cell countsOrdered By: Dr. Hinds on 08-16-2022 Erythrocyte distribution width (RBC) [Entitic vol] 44.9 fL 35.1-43.9 [facility] Erythrocyte distribution width (RBC) [Ratio] 13.3 % 11.6-14.6 [facility] Immature granulocytes/100 WBC (Bld) 1.800 % 0.0-0.9 [facility] Comment on above: IG% - Immature Granu locytes (promyelocytes, myelocytes and metamyelocytes) > 1% indicates that a LEFT SHIFT is Present. MCH (RBC) [Entitic mass] 30.7 pg 27.0-32.0 [facility] Nucleated RBC/100 WBC (Bld) [Ratio] 0 % 0-5 [facility] Laboratory - Urinalysison Protein Ql (U) Negative [facility] MCHC Auto (RBC) [Mass/Vol]Or dered By: Dr. Hinds on 08-16-2022 MCHC (RBC) [Mass/Vol] 33.2 g/dL 32-36 [facility] Platelets bldOrdered By: Dr. Hinds on 08-16-2022 Platelets (Bld) [#/Vol] 203 10*3/uL 150-450 [facility] Serum Treponema species anti body detectionOrdered By: Dr. Hinds on 08-16-2022 Treponema sp Ab Ql (S) Non-Reactive [facility] Basophil percentageOrdered B y: Dr. Villatoro on 08-12-2022 Chloride [Moles/Vol] 106 mmol/L 98-107 [facility] Glucose [Mass/Vol] 97 mg/dL 74-106 [facility] Potassium [Moles/Vol] 3.0 mmol/L 3.5-5.1 [facility] Sodium [Moles/Vol] 138 mmol/L 136-145 [facility] Laboratory - Chemistry and C hemistry - challengeOrdered By: Dr. Villatoro on 08-12-2022 CO2 [Moles/Vol] 22.0 mmol/L 21.0-32.0 [facility] Urea nitrogen/Creatinine [Mass ratio] 15.6 mg/mg 10-20 [facility] No Panel InformationOrdered By: Dr. Villatoro on 08-12-2022 Estimated Creatinine Clearance Calc 159.46 ml/min [facility] Estimated GFR (MDRD) Amer 220 mL/min >60 [facility] Comment on above: GFR Calc Estimated GFR (MDRD) Non-Af Amer 182 mL/min >60 [facility] Comment on above: Non- GFR Calc Serum or plasma calcium shilpa urement (mass/volume)Ordered By: Dr. Villatoro on 08-12-2022 Calcium [Mass/Vol] 8.4 mg/dL 8.5-10.1 [facility] Serum or plasma creatinine m easurement (mass/volume)Ordered By: Dr. Villatoro on 08-12-2022 Creatinine [Mass/Vol] 0.45 mg/dL 0.55-1.02 [facility] Comment on above: The validity of the calculated GFR & GFRAA in patients over 70 years has not been determined. Clinical correlation is essential. Serum or plasma urea nitroge n measurement (mass/volume)Ordered By: Dr. Villatoro on 08-12-2022 Urea nitrogen [Mass/Vol] 7 mg/dL 7-18 [facility] Thin prep Papanicolaou smear with manual screeningOrdered By: Dr. Villtaoro on 08-12-2022 Thin prep Papanicolaou smear with manual screening 10 5-15 [facility] Basophil percentageOrdered B y: Dr. Hinds on 08-10-2022 Basophil percentage 0-5 SEEN /hpf 0-5 [facility] Bilirubin Test strip Ql (U)O rdered By: Dr. Hinds on 08-10-2022 Bilirubin Ql (U) Negative Negative [facility] Ketones Test strip Ql (U)Ord ered By: Dr. Hinds on 08-10-2022 Ketones Ql (U) Negative Negative [facility] Mucus LM Ql (Urine sed)Order ed By: Dr. Hinds on 08-10-2022 Mucus Ql (Urine sed) 0 SEEN /hpf [facility] Nitrite Test strip Ql (U)Ord ered By: Dr. Hinds on 08-10-2022 Nitrite Ql (U) Negative Negative [facility] Protein Test strip Ql (U)Ord ered By: Dr. Hinds on 08-10-2022 Protein Ql (U) Negative Negative [facility] Squamous epithelial cells de tection in urine sediment by light microscopyOrdered By: Dr. Hinds on 08-10-2022 Epithelial cells.squamous LM Ql (Urine sed) 5-10 SEEN /hpf 5-10 [facility] Urine blood detectionOrdered By: Dr. Hinds on 08-10-2022 RBC Ql (U) Negative Negative [facility] RBC Ql (U) 0 SEEN /hpf 0-5 [facility] Urine clarityOrdered By: Dr. Hinds on 08-10-2022 Clarity (U) Clear Clear [facility] Urine color determinationOrd ered By: Dr. Hinds on 08-10-2022 Color (U) Yellow Yellow [facility] Urine glucose detectionOrder ed By: Dr. Hinds on 08-10-2022 Glucose Ql (U) Normal mg/dl Normal [facility] Urine leukocyte esterase det ection by dipstickOrdered By: Dr. Hinds on 08-10-2022 Leukocyte esterase Test strip Ql (U) 100 /ul Negative [facility] Urine pHOrdered By: Dr. Katerine blackwell on 08-10-2022 pH (U) 7.0 [pH] 5.0 - 8.0 [facility] Urine sediment bacteria coun t by microscopy (number/high power field)Ordered By: Dr. Hinds on 08-10-2022 Bacteria LM.HPF (Urine sed) [#/Area] 1 /[HPF] None Seen [facility] Urine specific gravity measu rementOrdered By: Dr. Hinds on 08-10-2022 Specific gravity (U) [Rel density] 1.010 1.002-1.030 [facility] Urobilinogen Auto test strip Ql (U)Ordered By: Dr. Hinds on 08-10-2022 Urobilinogen Ql (U) Normal mg/dl Normal [facility] Culture, urineOrdered By: Dr Sulema Hinds on 07-14-2022 Bacteria identified Cx Nom (U) Positive [facility] Bilirubin Test strip Ql (U)O rdered By: Dr. Hinds on 07-13-2022 Bilirubin Ql (U) Negative Negative [facility] Ketones Test strip Ql (U)Ord ered By: Dr. Hinds on 07-13-2022 Ketones Ql (U) Negative Negative [facility] Nitrite Test strip Ql (U)Ord ered By: Dr. Hinds on 07-13-2022 Nitrite Ql (U) Negative Negative [facility] Protein Test strip Ql (U)Ord ered By: Dr. Hinds on 07-13-2022 Protein Ql (U) Negative Negative [facility] Urine blood detectionOrdered By: Dr. Hinds on 07-13-2022 RBC Ql (U) Negative Negative [facility] Urine clarityOrdered By: Dr. Hinds on 07-13-2022 Clarity (U) Sl. Cloudy Clear [facility] Urine color determinationOrd ered By: Dr. Hinds on 07-13-2022 Color (U) Yellow Yellow [facility] Urine glucose detectionOrder ed By: Dr. Hinds on 07-13-2022 Glucose Ql (U) Normal mg/dl Normal [facility] Urine leukocyte esterase det ection by dipstickOrdered By: Dr. Hinds on 07-13-2022 Leukocyte esterase Test strip Ql (U) 500 /ul Negative [facility] Urine pHOrdered By: Dr. Katerine blackwell on 07-13-2022 pH (U) 7.0 [pH] 5.0 - 8.0 [facility] Urine specific gravity measu rementOrdered By: Dr. Hinds on 07-13-2022 Specific gravity (U) [Rel density] 1.010 1.002-1.030 [facility] Urobilinogen Auto test strip Ql (U)Ordered By: Dr. Hinds on 07-13-2022 Urobilinogen Ql (U) Normal mg/dl Normal [facility] Chlamydia trachomatis rRNA d etection by probe and target amplification methodOrdered By: Dr. Hinds on 07-08-2022 C. trachomatis rRNA JOI+probe Ql (Unsp spec) Negative Negative [facility] Laboratory - Chemistry and C hemistry - challengeon 07-08-2022 Glucose Ql (U) Negative [facility] Laboratory - Microbiology an d Antimicrobial susceptibilityOrdered By: Dr. Hinds on 07-08-2022 N. gonorrhoeae DNA JOI+probe Ql (Unsp spec) Negative Negative [facility] Comment on above: Performed at: [address] [id number] Director: Steffanie Clarke MD, Phone: [phone] Laboratory - Urinalysison Protein Ql (U) Negative [facility] Laboratory - Chemistry and C hemistry - challengeon 06-09-2022 Glucose Ql (U) Negative [facility] Laboratory - Urinalysison Protein Ql (U) Negative [facility] Laboratory - Chemistry and C hemistry - challengeon 05-14-2022 Glucose Ql (U) Negative [facility] Laboratory - Urinalysison Protein Ql (U) Negative [facility] Absolute lymphocyte countOrd ered By: Dr. Hinds on 2022 Lymphocytes Auto (Unsp spec) [#/Vol] 1.31 10*3/uL 0.83-4.51 [facility] Basophil percentageOrdered B y: Dr. Hinds on 2022 Basophils/100 WBC (Bld) 0.6 % 0-1 [facility] Eosinophils/100 WBC (Bld) 0.4 % 0-5 [facility] Neutrophils (Bld) [#/Vol] 7.9 10*3/uL 2.0-7.7 [facility] Neutrophils/100 WBC (Bld) 79.1 % 47-70 [facility] WBC (Bld) [#/Vol] 10.0 10*3/uL 4.4-11.0 [facility] Blood erythrocytes count (nu mber/volume)Ordered By: Dr. Hinds on 2022 RBC (Bld) [#/Vol] 4.35 10*6/uL 4.2-5.4 [facility] Blood hemoglobin measurement (mass/volume)Ordered By: Dr. Hinds on 2022 Hemoglobin (Bld) [Mass/Vol] 13.3 g/dL 12.0-15.0 [facility] Blood lymphocytes/100 leukoc ytesOrdered By: Dr. Hinds on 2022 Lymphocytes/100 WBC (Bld) 13.2 % 19-41 [facility] Blood monocytes/100 leukocyt esOrdered By: Dr. Hinds on 2022 Monocytes/100 WBC (Bld) 6.3 % 0-10 [facility] Blood platelet mean volumeOr dered By: Dr. Hinds on 2022 Platelet mean volume (Bld) [Entitic vol] 10.7 fL 6.2-12.0 [facility] Determination of erythrocyte mean corpuscular volume (MCV)Ordered By: Dr. Hinds on 2022 MCV (RBC) [Entitic vol] 91.5 fL 81-99 [facility] HIV 1 and HIV-2 antibody ass ay with HIV-1 p24 antigen detectionOrdered By: Dr. Hinds on 2022 HIV 1+2 Ab+HIV1 p24 Ag IA Ql Non-Reactive Nonreactive [facility] Hematocrit Auto (Bld) [Volum e fraction]Ordered By: Dr. Hinds on 2022 Hematocrit (Bld) [Volume fraction] 39.8 % 37-47 [facility] Laboratory - Hematology and Cell countsOrdered By: Dr. Hinds on 2022 Erythrocyte distribution width (RBC) [Entitic vol] 46.6 fL 35.1-43.9 [facility] Erythrocyte distribution width (RBC) [Ratio] 13.7 % 11.6-14.6 [facility] Immature granulocytes/100 WBC (Bld) 0.400 % 0.0-0.9 [facility] Comment on above: IG% - Immature Granu locytes (promyelocytes, myelocytes and metamyelocytes) > 1% indicates that a LEFT SHIFT is Present. MCH (RBC) [Entitic mass] 30.6 pg 27.0-32.0 [facility] Nucleated RBC/100 WBC (Bld) [Ratio] 0 % 0-5 [facility] Auto (RBC) [Mass/Vol]Or dered By: Dr. Hinds on 2022 MCHC (RBC) [Mass/Vol] 33.4 g/dL 32-36 [facility] No Panel InformationOrdered By: Dr. Hinds on 2022 Hepatitis B Surface Antigen Non-Reactive Nonreactive [facility] Hepatitis C Antibody Non-Reactive Nonreactive [facility] Comment on above: Non Reactive: < 0.8 Equivocal: >/= 0.8 to < 1.0 Reactive: >/= 1.0The CDC recommends that a reactive/equivocal HCV antibody result be followed up by the HCV Nucleic Acid Amplificationtest (463729) Miscellaneous Test Comment MAILED SPECIMEN [facility] Rubella IgG Antibody Reactive Nonreactive [facility] Comment on above: Antibody Results Int erpretation of Immune Status Non Reactive Presumed Non-Immune Equivocal Equivocal Reactive Presumed Immune Platelets bldOrdered By: Dr. Hinds on 2022 Platelets (Bld) [#/Vol] 244 10*3/uL 150-450 [facility] Serum Treponema species anti body detectionOrdered By: Dr. Hinds on 2022 Treponema sp Ab Ql (S) Non-Reactive [facility] Chlamydia trachomatis rRNA d etection by probe and target amplification methodon 03-23-2022 C. trachomatis rRNA JOI+probe Ql (Unsp spec) Negative Negative [facility] Work Phone: Laboratory - Drug toxicology on 03-23-2022 Amphetamines Ql (U) Negative <1000 ng/mL [facility] Work Phone: Benzodiazepines Ql (U) Negative < 200 ng/mL [facility] Work Phone: [phone] Cannabinoids Screen Ql (U) Negative < 50 ng/mL [facility] Work Phone: Cocaine Ql (U) Negative < 300 ng/mL [facility] Work Phone: Opiates Ql (U) Negative < 300 ng/mL [facility] Work Phone: [phone] Laboratory - Microbiology an d Antimicrobial susceptibilityon 03-23-2022 N. gonorrhoeae DNA JOI+probe Ql (Unsp spec) Negative Negative [facility] Work Phone: Comment on above: Performed at: =[address] [id number] Director: Steffanie Clarke MD, Phone: [phone] No Panel Informationon 03-23 MDMA (Ecstasy) Screen Negative < 500 ng/mL [facility] Work Phone: [phone] Urine Barbiturates Screen Negative < 200 ng/mL [facility] Work Phone: [phone] Urine Drug Screen Comment [facility] Work Phone: Comment on above: CONFIRMATORY TESTING FOR ALL POSITIVE URINE DRUG SCREENRESULTS WILL ONLY BE SENT OUT UPON PHYSICIAN ORDER. VISTA Urine Drug Screen methods provide only preliminaryanalytical test results. A more specific alternate chemicalmethod must be used in order to obtain a confirmedanalytical result. Gas chromatography/mass spectrometery(GC/MS) is the preferred confirmatory method. Clinicalconsideration and professional judgement should be appliedto any drug of abuse test result, particularly whenpreliminary positive results are used. URINE TCA TESTING MUST BE ORDERED SEPARATELY. USE TESTMNEMONIC: [facility] Urine Methadone Screen Negative < 300 ng/mL [facility] Work Phone: Urine phencyclidine (PCP) de tectionon 03-23-2022 Phencyclidine Ql (U) Negative < 25 ng/mL [facility] Work Phone: LABORATORYOrdered By: Brenda Anderson on 08-11-2021 Albumin BCP dye [Mass/Vol] 4.1 G/dL Invalid Interpretation Code 3.5 - 5.0 G/dL AO ADM SS Albumin/Globulin [Mass ratio] 1.2 {ratio} Invalid Interpretation Code 1.1 - 2.5 ratio AO ADM SS ALP [Catalytic activity/Vol] 98 U/L Invalid Interpretation Code 40 - 135 U/L AO ADM SS ALT With P-5'-P [Catalytic activity/Vol] 12 U/L Invalid Interpretation Code 14 - 59 U/L AO ADM SS AST With P-5'-P [Catalytic activity/Vol] 12 U/L Invalid Interpretation Code 10 - 40 U/L AO ADM SS Bilirubin [Mass/Vol] 0.5 mg/dL Invalid Interpretation Code 0.2 - 1.0 mg/dL AO ADM SS Calcium [Mass/Vol] 9.2 mg/dL Invalid Interpretation Code 8.4 - 10.2 mg/dL AO ADM SS Chloride [Moles/Vol] 106 mmol/L Invalid Interpretation Code 98 - 107 mmol/L AO ADM SS CO2 [Moles/Vol] 26 mmol/L Invalid Interpretation Code 22 - 29 mmol/L AO ADM SS Creatinine [Mass/Vol] 0.58 mg/dL Invalid Interpretation Code 0.55 - 1.02 mg/dL AO ADM SS Electrolyte Balance 10.0 mEq/L Invalid Interpretation Code 4.0 - 15.0 mEq/L AO ADM SS Globulin 3.3 G/dL Invalid Interpretation Code AO ADM SS Glucose [Mass/Vol] 80 mg/dL Invalid Interpretation Code 70 - 105 mg/dL AO ADM SS Potassium [Moles/Vol] 3.9 mmol/L Invalid Interpretation Code 3.5 - 5.1 mmol/L AO ADM SS Protein [Mass/Vol] 7.4 G/dL Invalid Interpretation Code 6.4 - 8.2 G/dL AO ADM SS Sodium [Moles/Vol] 142 mmol/L Invalid Interpretation Code 136 - 145 mmol/L AO ADM SS TSH Qn 1.56 m[IU]/L Invalid Interpretation Code 0.36 - 3.74 mcIU/mL AO ADM SS Urea nitrogen [Mass/Vol] 9 mg/dL Invalid Interpretation Code 7 - 18 mg/dL AO ADM SS Urea nitrogen/Creatinine [Mass ratio] 16 ratio Invalid Interpretation Code 7 - 27 ratio AO ADM SS LABORATORYOrdered By: Josselyn Omalley on 08-11-2021 Basophil, Absolute 0.10 103/mcL Invalid Interpretation Code 0.00 - 0.19 10^3/mcL AO Auto Heme SS Basophils/100 WBC (Bld) 0.9 % Invalid Interpretation Code 0.0 - 2.5 % AO Auto Heme SS Eosinophil, Absolute 0.00 103/mcL Invalid Interpretation Code 0.00 - 0.40 10^3/mcL AO Auto Heme SS Eosinophils/100 WBC (Bld) 0.7 % Invalid Interpretation Code 0.0 - 7.0 % AO Auto Heme SS Erythrocyte distribution width (RBC) [Ratio] 13.6 % Invalid Interpretation Code 11.5 - 14.5 % AO Auto Heme SS Hematocrit (Bld) [Volume fraction] 39.1 % Invalid Interpretation Code 37.0 - 47.0 % AO Auto Heme SS Hemoglobin (Bld) [Mass/Vol] 13.3 G/dL Invalid Interpretation Code 12.0 - 16.0 G/dL AO Auto Heme SS Lymphocyte, Absolute 1.00 103/mcL Invalid Interpretation Code 0.77 - 3.85 10^3/mcL AO Auto Heme SS Lymphocytes/100 WBC (Bld) 15.0 % Invalid Interpretation Code 10.0 - 50.0 % AO Auto Heme SS MCH (RBC) [Entitic mass] 30.0 pg Invalid Interpretation Code 27.0 - 31.2 pg AO Auto Heme SS MCHC (RBC) [Mass/Vol] 34.0 G/dL Invalid Interpretation Code 33.0 - 37.0 G/dL AO Auto Heme SS MCV (RBC) [Entitic vol] 88.4 fL Invalid Interpretation Code 80.0 - 94.0 fL AO Auto Heme SS Monocyte, Absolute 0.50 103/mcL Invalid Interpretation Code 0.15 - 1.00 10^3/mcL AO Auto Heme SS Monocytes/100 WBC (Bld) 6.9 % Invalid Interpretation Code 1.7 - 13.0 % AO Auto Heme SS Neutrophil, Absolute 5.00 103/mcL Invalid Interpretation Code 2.85 - 6.16 10^3/mcL AO Auto Heme SS Neutrophils/100 WBC (Bld) 76.5 % Invalid Interpretation Code 37.0 - 80.0 % AO Auto Heme SS Platelet mean volume (Bld) [Entitic vol] 9.9 fL Invalid Interpretation Code 7.4 - 10.4 fL AO Auto Heme SS Platelets (Bld) [#/Vol] 217 103/mcL Invalid Interpretation Code 130 - 400 10^3/mcL AO Auto Heme SS RBC (Bld) [#/Vol] 4.42 106/mcL Invalid Interpretation Code 4.20 - 5.40 10^6/mcL AO Auto Heme SS WBC (Bld) [#/Vol] 6.60 103/mcL Invalid Interpretation Code 4.60 - 10.80 10^3/mcL AO Auto Heme SS LABORATORYOrdered By: SYSTEM SYSTEM on 08-11-2021 GFR 156 ml/min/1.73sqm Invalid Interpretation Code AO Chemistry S GFR Non- 129 ml/min/1.73sqm Invalid Interpretation Code AO Chemistry S PROGRESSon 08-23-2019 PROGRESS HNO ID: [id number] Author: Makeda Acosta Service: ? Author Type: Physician Type: Progress Notes Filed: 08/23/2019 1:54 PM Note Text: Makeda Acosta MD [facility] [address] [place] [address] SUBJECTIVE Chief Complaint: Patient presents with: Recheck Breast Mass . HPI Darryl Bui is a 19 year old female here for follow up after excision of palpable left breast mass. She is status post left breast excisional biopsy on 10/30/2018 for a painful left breast mass. Final pathology showed fibrocystic changes and benign intraductal papillomas. She denies palpating any breast masses or axillary adenopathy. No skin or nipple changes. No nipple discharge. She is currently nine weeks . Nursing Notes: Deborah Marcus MA 08/22/2019 10:12 AM Signed Patient presents for follow up a left excisional biopsy for a benign intraductal papilloma. Patient relates only breast tenderness which started after becoming . She is 9 weeks along. Deborah Marcus MA AGE AT [place] 9 AGE AT FIRST n/a FAMILY HISTORY OF BREAST CANCER No (IF YES) NUMBER OF FIRST DEGREE RELATIVES WITH BREAST CANCER 0 PREVIOUS BREAST BIOPSIES Yes (1) (IF YES) PREVIOUS BREAST BIOPSY WITH ATYPICAL HYPERPLASIA No RACE SHIV MODEL RISK 5 YEAR Shiv model not calculated due to the patient being under age 33 Review of Systems Constitutional: Negative for fever, malaise/fatigue and weight loss. Breast: See HPI PAST MEDICAL HISTORY Diagnosis Date - Anxiety and depression on celexa - Breast mass 2016 - Celiac disease - Gastroesophageal reflux disease - Migraine headache - Migraines - Psychiatric disorder depression PAST SURGICAL HISTORY Procedure Laterality Date - BX OF BREAST; INCISIONAL Left 10/30/2018 fibrocystic change with numerous apocrine cysts, ductal cysts, usual ductal hyperplasia, multiple benign intraductal papillomas and duct ectasia - NONE - US BREAST NEEDLE CORE BIOPSY LT Left 2017 fibrocystic changes Social History Tobacco Use - Smoking status: Never Smoker - Smokeless tobacco: Never Used Substance Use Topics - Alcohol use: No - Drug use: No FAMILY HISTORY Problem Relation Age of Onset - other (epilepsie [Other]) Father The ROS, medical, surgical, family, and social history were reviewed by Makeda Acosta MD ALLERGIES Allergen Reactions - Amoxicillin Rash - Penicillins Rash - Gluten Unknown Current Outpatient Medications Medication Sig - sertraline (ZOLOFT) 100 mg tablet Take 100 mg by mouth once daily. - vit/iron fum/folic ac ( VITAMIN ORAL) Take by mouth once daily. No current facility-administered medications for this visit. OBJECTIVE BP 107/77 Pulse 88 Ht 160 cm (5' 3) Wt 57.6 kg (127 lb) BMI 22.50 kg/m? BMI 22.50 kg/(m2) Physical Exam Constitutional: She is oriented to person, place, and time and well-developed, well-nourished, and in no distress. Neck: No thyromegaly present. Pulmonary/Chest: Right breast exhibits no inverted nipple, no mass, no nipple discharge, no skin change and no tenderness. Left breast exhibits no inverted nipple, no mass, no nipple discharge, no skin change (scar inside areola) and no tenderness. Breasts are symmetrical. Lymphadenopathy: Head (right side): No submental, no submandibular and no tonsillar adenopathy present. Head (left side): No submental, no submandibular and no tonsillar adenopathy present. She has no cervical adenopathy. She has no axillary adenopathy. Right: No supraclavicular adenopathy present. Left: No supraclavicular adenopathy present. Neurological: She is alert and oriented to person, place, and time. She has intact cranial nerves. Plan ASSESSMENT/PLAN Fibrocystic changes of left breast Ms. Del Toro is a 18 year old female who is status post left breast excisional biopsy on 10/30/2018 for a painful left breast mass. Final pathology showed fibrocystic changes and benign intraductal papillomas. ? Today, there are no suspicious findings on clinical exam. She can see me as needed. ? She should continue monthly breast awareness and call with any concerns. Follow up: Return if symptoms worsen or fail to improve. Makeda Acosta MD 08/23/2019 1:51 PM Normal [facility] CNOVon 08-22-2019 CNOV Office Visit ([facility] R) DARRYL BUI ([id number]) 2000 F Date Time Provider Department 08/22/19 9:45 AM MAKEDA ACOSTA During your visit today, we recorded the following information about you: Pulse Blood pressure Weight Height 88/minute 107/77 57.6 kg 1.6 m Deborah Marcus MA 08/22/2019 10:12 AM Signed Patient presents for follow up a left excisional biopsy for a benign intraductal papilloma. Patient relates only breast tenderness which started after becoming . She is 9 weeks along. ROWDY Wong MD 08/23/2019 1:54 PM Signed [place] [address] SUBJECTIVE Chief Complaint: Patient presents with: Recheck Breast Mass . HPI Darryl Bui is a 19 year old female here for follow up after excision of palpable left breast mass. She is status post left breast excisional biopsy on 10/30/2018 for a painful left breast mass. Final pathology showed fibrocystic changes and benign intraductal papillomas. She denies palpating any breast masses or axillary adenopathy. No skin or nipple changes. No nipple discharge. She is currently nine weeks . Nursing Notes: Deborah Marcus MA 08/22/2019 10:12 AM Signed Patient presents for follow up a left excisional biopsy for a benign intraductal papilloma. Patient relates only breast tenderness which started after becoming . She is 9 weeks along. Deborah Marcus MA AGE AT [place] 9 AGE AT FIRST n/a FAMILY HISTORY OF BREAST CANCER No (IF YES) NUMBER OF FIRST DEGREE RELATIVES WITH BREAST CANCER 0 PREVIOUS BREAST BIOPSIES Yes (1) (IF YES) PREVIOUS BREAST BIOPSY WITH ATYPICAL HYPERPLASIA No RACE SHIV MODEL RISK 5 YEAR Shiv model not calculated due to the patient being under age 33 Review of Systems Constitutional: Negative for fever, malaise/fatigue and weight loss. Breast: See HPI PAST MEDICAL HISTORY Diagnosis Date - Anxiety and depression on celexa - Breast mass 2016 - Celiac disease - Gastroesophageal reflux disease - Migraine headache - Migraines - Psychiatric disorder depression PAST SURGICAL HISTORY Procedure Laterality Date - BX OF BREAST; INCISIONAL Left 10/30/2018 fibrocystic change with numerous apocrine cysts, ductal cysts, usual ductal hyperplasia, multiple benign intraductal papillomas and duct ectasia - NONE - US BREAST NEEDLE CORE BIOPSY LT Left 2017 fibrocystic changes Social History Tobacco Use - Smoking status: Never Smoker - Smokeless tobacco: Never Used Substance Use Topics - Alcohol use: No - Drug use: No FAMILY HISTORY Problem Relation Age of Onset - other (epilepsie [Other]) Father The ROS, medical, surgical, family, and social history were reviewed by Makeda Acosta MD ALLERGIES Allergen Reactions - Amoxicillin Rash - Penicillins Rash - Gluten Unknown Current Outpatient Medications Medication Sig - sertraline (ZOLOFT) 100 mg tablet Take 100 mg by mouth once daily. - vit/iron fum/folic ac ( VITAMIN ORAL) Take by mouth once daily. No current facility-administered medications for this visit. OBJECTIVE BP 107/77 Pulse 88 Ht 160 cm (5' 3) Wt 57.6 kg (127 lb) BMI 22.50 kg/m? BMI 22.50 kg/(m2) Physical Exam Constitutional: She is oriented to person, place, and time and well-developed, well-nourished, and in no distress. Neck: No thyromegaly present. Pulmonary/Chest: Right breast exhibits no inverted nipple, no mass, no nipple discharge, no skin change and no tenderness. Left breast exhibits no inverted nipple, no mass, no nipple discharge, no skin change (scar inside areola) and no tenderness. Breasts are symmetrical. Lymphadenopathy: Head (right side): No submental, no submandibular and no tonsillar adenopathy present. Head (left side): No submental, no submandibular and no tonsillar adenopathy present. She has no cervical adenopathy. She has no axillary adenopathy. Right: No supraclavicular adenopathy present. Left: No supraclavicular adenopathy present. Neurological: She is alert and oriented to person, place, and time. She has intact cranial nerves. Plan ASSESSMENT/PLAN Fibrocystic changes of left breast Ms. Del Toro is a 18 year old female who is status post left breast excisional biopsy on 10/30/2018 for a painful left breast mass. Final pathology showed fibrocystic changes and benign intraductal papillomas. ? Today, there are no suspicious findings on clinical exam. She can see me as needed. ? She should continue monthly breast awareness and call with any concerns. Follow up: Return if symptoms worsen or fail to improve. Makeda Acosta MD 08/23/2019 1:51 PM Makeda Acosta MD 08/23/2019 1:53 PM Written Ms. Del Toro is a 18 year old female who is status post left breast excisional biopsy on 10/30/2018 for a painful left breast mass. Final pathology showed fibrocystic changes and benign intraductal papillomas. ? Today, there are no suspicious findings on clinical exam. She can see me as needed. ? She should continue monthly breast awareness and call with any concerns. Referring Provider: KRISTIAN QUINONES [[id number]] Allergies As of Date: 08/22/2019 Noted Allergy Reaction AMOXICILLIN 12/21/2012 2 - Rash PENICILLINS 09/12/2015 2 - Rash GLUTEN 05/01/2018 16 - Unknown Date Reviewed: 08/22/2019 Reviewed by: Deborah Marcus - Fully Assessed Reason for Visit: Recheck [92] Breast Mass [284] Primary Visit Diagnosis:Fibrocystic changes of left breast [N60.12] Prescriptions as of 08/22/2019 Sig: SERTRALINE 100 MG TABLET Take 100 mg by mouth once bennett* VITAMIN ORAL Take by mouth once daily. Medication notes this encounter DULOXETINE 60 MG CAPSULE,DELAYED RELEASE >> Deborah Marcus MA 08/22/2019 10:09 AM >> DEBORAH MARCUS MA [facility] Aug 22, 2019 10:09 AM Not taking. Deborah Marcus MA Problem List As Of Date 08/22/2019 Noted Resolved Lump or mass in breast [N63.0] 09/12/2015 01/09/2016 More... Solitary cyst of left breast [N60.02] 01/09/2016 01/09/2016 Diffuse cystic mastopathy of left breast [N60.1*01/09/2016 01/07/2017 More... Lump or mass in breast [N63.0] 01/07/2017 01/21/2017 More... Fibrocystic changes of left breast [N60.12] 01/21/2017 More... Breast pain [N64.4] 07/26/2017 More... MDD (major depressive disorder) [F32.9] 05/10/2018 Posttraumatic stress disorder [F43.10] 05/12/2018 Major depressive disorder [F32.9] 05/31/2018 Visit Notes: >> Deborah Marcus TueAug 22, 2019 10:10 AM Status: Signed Patient presents for follow up a left excisional biopsy for a benign intraductal papilloma. Patient relates only breast tenderness which started after becoming . She is 9 weeks along. Deborah Marcus MA Medications Discontinued During This Encounter hydroxyzine HCl (ATARAX ORAL) 08/23/2019 Class: Historical Med Route: ORAL Sig: Take by mouth daily at bedtime. Disc: Discontinued by another Health Care Provider magnesium oxide 400 mg cap 08/23/2019 Class: Historical Med Route: ORAL Sig: Take 400 mg by mouth once daily. Disc: Discontinued by another Health Care Provider NORLYDA 0.35 mg tablet 07/12/2017 08/23/2019 Class: Historical Med Route: ORAL Sig: Take 1 tablet by mouth once daily. Disc: Discontinued by another Health Care Provider ondansetron HCl (ZOFRAN ORAL) 08/23/2019 Class: Historical Med Route: ORAL Sig: Take by mouth as needed. Disc: Discontinued by another Health Care Provider prazosin HCl (MINIPRESS ORAL) 08/23/2019 Class: Historical Med Route: ORAL Sig: Take by mouth once daily. Disc: Discontinued by another Health Care Provider RIBOFLAVIN (VITAMIN B-2 ORAL) 08/23/2019 Class: Historical Med Route: ORAL Sig: Take 400 mg by mouth once daily. Disc: Discontinued by another Health Care Provider SUMAtriptan (IMITREX) 25 mg tablet 06/30/2017 08/23/2019 Class: Historical Med Route: ORAL Sig: Take 25 mg by mouth as needed. Disc: Discontinued by another Health Care Provider DULoxetine (CYMBALTA) 60 mg capsule 30 c* 2 06/02/2018 08/23/2019 Class: Print RX Route: ORAL Sig: Take 1 capsule by mouth once daily. Disc: Discontinued by another Health Care Provider Disposition: Return if symptoms worsen or fail to improve. Follow-up and Disposition History Recorded Questionnaire: CAMRON BAILEY SHIV MODEL SCORING AGE AT [place] -> 9 AGE AT FIRST -> n/a FAMILY HISTORY OF BREAST CANCER -> No (IF YES) NUMBER OF FIRST DEGREE RELATIVES WITH BREAST CANCER -> 0 PREVIOUS BREAST BIOPSIES -> Yes Cmt: 1 (IF YES) PREVIOUS BREAST BIOPSY WITH ATYPICAL HYPERPLASIA -> No RACE -> SHIV MODEL RISK 5 YEAR -> Shiv model not calculated due to the patient being under age 33 Letter Text Encounter Status:Closed by [facility]KED[facility]COSTA [facility] TENMELVINDARRYL Kwong ([id number]) 2000 F Date Time Provider Department 11/07/18 3:15 PM MAKEDA ACOSTA [facility] During your visit today, we recorded the following information about you: Pulse Blood pressure Weight Height 102/minute 114/62 57.6 kg 1.6 m Deborah Marcus MA 11/07/2018 3:16 PM Signed Patient presents for post op follow up. Incision clean, dry and intact. ROWDY Wong MD 11/07/2018 3:39 PM Signed Chief Complaint:Patient presents with: Post Op Darryl Kwong Gissell is a 18 year old female who presents today for her post op appointment. She is status post left breast excisional biopsy on 10/30/2018 for a painful left breast mass. Final pathology showed fibrocystic changes and benign intraductal papillomas. The over the counter medication did not help. It is still very painful. No nausea/vomiting but does not have much appetite. No fevers or redness or drainage. PAST MEDICAL HISTORY Diagnosis Date - Anxiety and depression on celexa - Breast mass 2016 - Celiac disease - Gastroesophageal reflux disease - Migraine headache - Migraines - Psychiatric disorder depression PAST SURGICAL HISTORY Procedure Laterality Date - BX OF BREAST; INCISIONAL Left 10/30/2018 fibrocystic change with numerous apocrine cysts, ductal cysts, usual ductal hyperplasia, multiple benign intraductal papillomas and duct ectasia - NONE - US BREAST NEEDLE CORE BIOPSY LT Left 2017 fibrocystic changes FAMILY HISTORY Problem Relation Age of Onset - other (epilepsie [Other]) Father Social History Socioeconomic History Marital status: Single Spouse name: Not on file Number of children: Not on file Years of education: Not on file Highest education level: Not on file Social Needs Financial resource strain: Not on file Food insecurity - worry: Not on file Food insecurity - inability: Not on file Transportation needs - medical: Not on file Transportation needs - non-medical: Not on file Occupational History Not on file Tobacco Use Smoking status: Never Smoker Smokeless tobacco: Never Used Substance and Sexual Activity Alcohol use: No Drug use: No Sexual activity: Yes Partners: Male control/protection: Pill Other Topics Concerns: Not on file Social History Narrative Merged History Encounter ALLERGIES Allergen Reactions - Amoxicillin Rash - Penicillins Rash - Gluten Unknown REVIEW OF SYSTEMS GENERAL: No weight loss, malaise or fevers Breast: see HPI Current Outpatient Medications: prazosin HCl (MINIPRESS ORAL) Take by mouth once daily. Disp: Rfl: hydroxyzine HCl (ATARAX ORAL) Take by mouth daily at bedtime. Disp: Rfl: ondansetron HCl (ZOFRAN ORAL) Take by mouth as needed. Disp: Rfl: NORLYDA 0.35 mg tablet Take 1 tablet by mouth once daily. Disp: Rfl: SUMAtriptan (IMITREX) 25 mg tablet Take 25 mg by mouth as needed. Disp: Rfl: magnesium oxide 400 mg cap Take 400 mg by mouth once daily. Disp: Rfl: RIBOFLAVIN (VITAMIN B-2 ORAL) Take 400 mg by mouth once daily. Disp: Rfl: HYDROcodone-acetaminoph en (NORCO) 5-325 mg per tablet Take 1 tablet by mouth every 6 hours as needed for Pain for up to 3 days. Disp: 12 tablet Rfl: 0 DULoxetine (CYMBALTA) 60 mg capsule Take 1 capsule by mouth once daily. Disp: 30 capsule Rfl: 2 No current facility-administered medications for this visit. BP 114/62 Pulse 102 Ht 5' 3 (1.60m) Wt 127 lb (57.6kg) BMI 22.50 kg/(m2). PHYSICAL EXAMINATION General appearance: alert, well appearing, and in no distress Mental status: alert, oriented to person, place and time Neck: supple, no significant adenopathy Breast Exam: On visual in spection of the breasts finds them to be Breasts: symmetric without skin changes or nipple retraction. While sitting upright, there were no breast defects or differences noted with arms down, above the head or on her waist. RIGHT Skin changes: No Nipple retraction:No Axillary adenopathy: No Supraclavicular adenopathy: No Palpable masses: No Tenderness: No Nipple discharge: No LEFT Skin changes: incision inside areola clean dry and intact with some ecchymosis; no palpable hematoma Nipple retraction:No Axillary adenopathy: No Supraclavicular adenopathy: No Palpable masses: firm tissue at 1:00 5 CFN Tenderness: No Nipple discharge: No ASSESSMENT/PLAN Fibrocystic changes of left breast Ms. Del Toro is a 18 year old female who is status post left breast excisional biopsy on 10/30/2018 for a painful left breast mass. Final pathology showed fibrocystic changes and benign intraductal papillomas. She is healing well after surgery with no signs of complications. She is still having significant pain and was given a prescription for norco. She was instructed to call if the pain doesn't improve. Otherwise, I will see her back in 9 months for a clinical exam. She should continue monthly breast awareness and call with any concerns. Makeda Acosta MD 11/07/2018 3:34 PM Makeda Acosta MD 11/07/2018 3:39 PM Written Ms. Del Toro is a 18 year old female who is status post left breast excisional biopsy on 10/30/2018 for a painful left breast mass. Final pathology showed fibrocystic changes and benign intraductal papillomas. She is healing well after surgery with no signs of complications. She is still having significant pain and was given a prescription for norco. She was instructed to call if the pain doesn't improve. Otherwise, I will see her back in 9 months for a clinical exam. She should continue monthly breast awareness and call with any concerns. Referring Provider: KRISTIAN QUINONES [[id number]] Allergies As of Date: 11/07/2018 Noted Allergy Reaction AMOXICILLIN 12/21/2012 2 - Rash PENICILLINS 09/12/2015 2 - Rash GLUTEN 05/01/2018 16 - Unknown Date Reviewed: 11/07/2018 Reviewed by: Makeda Acosta - Fully Assessed Reason for Visit: Post Op [174] Primary Visit Diagnosis:Fibrocystic breast changes, left [N60.12] Other Visit Diagnosis:Fibrocystic changes of left breast [N60.12] Order(s):HYDROcodone-ac etaminophen (NORCO) 5-325 mg per tabletTake 1 tablet by mouth every 6 hours as needed for Pain for up to 3 days.Disp: 12 tabletRfl: 0 Prescriptions as of 11/07/2018 Sig: MINIPRESS ORAL Take by mouth once daily. ATARAX ORAL Take by mouth daily at bedtim* ZOFRAN ORAL Take by mouth as needed. NORLYDA 0.35 MG TABLET Take 1 tablet by mouth once d* SUMATRIPTAN 25 MG TABLET Take 25 mg by mouth as needed* MAGNESIUM OXIDE 400 MG CAPSULE Take 400 mg by mouth once bennett* VITAMIN B-2 ORAL Take 400 mg by mouth once bennett* HYDROCODONE 5 MG-ACETAMINOPHE* Take 1 tablet by mouth every * DULOXETINE 60 MG CAPSULE,CHRISTIANO* Take 1 capsule by mouth once * Problem List As Of Date 11/07/2018 Noted Resolved Lump or mass in breast [N63.0] INVALID FOR*01/09/2016 More... Solitary cyst of left breast [N60.02] INVALID FOR*01/09/2016 Diffuse cystic mastopathy of left breast [N60.1*INVALID FOR*01/07/2017 More... Lump or mass in breast [N63.0] INVALID FOR*01/21/2017 More... Fibrocystic changes of left breast [N60.12] INVALID FOR* More... Breast pain [N64.4] INVALID FOR* More... MDD (major depressive disorder) [F32.9] INVALID FOR* Posttraumatic stress disorder [F43.10] INVALID FOR* Major depressive disorder [F32.9] INVALID FOR* Visit Notes: >> Deborah BaljitRowdyJaya Amrit hadley November 07, 2018 3:15 PM Status: Signed Patient presents for post op follow up. Incision clean, dry and intact. Deborah Marcus MA Prescriptions ordered this encounter Disp Refills Start End HYDROCODONE 5 MG-ACETAMINOPHEN 325 M* 12 t* 0 11/07/2018 11/10/2018 Class: Print RX Route: ORAL Sig: Take 1 tablet by mouth every 6 hours as needed for Pain for up to 3 days. Level of Service: POST-OP VISIT (NO CHARGE) NON-OB [[id number]] Disposition: Return in about 9 months (around 08/10/2019). Follow-up and Disposition History Recorded Encounter Status:Closed by MAKEDA ACOSTA MD on 11/07/18 [facility] PROGRESSon 11-07-2018 PROGRESS HNO ID: [id number] Author: Makeda Acosta Service: ? Author Type: Physician Type: Progress Notes Filed: 11/07/2018 3:39 PM Note Text: Chief Complaint:Patient presents with: Post Op Darryl Bui is a 18 year old female who presents today for her post op appointment. She is status post left breast excisional biopsy on 10/30/2018 for a painful left breast mass. Final pathology showed fibrocystic changes and benign intraductal papillomas. The over the counter medication did not help. It is still very painful. No nausea/vomiting but does not have much appetite. No fevers or redness or drainage. PAST MEDICAL HISTORY Diagnosis Date - Anxiety and depression on celexa - Breast mass 2016 - Celiac disease - Gastroesophageal reflux disease - Migraine headache - Migraines - Psychiatric disorder depression PAST SURGICAL HISTORY Procedure Laterality Date - BX OF BREAST; INCISIONAL Left 10/30/2018 fibrocystic change with numerous apocrine cysts, ductal cysts, usual ductal hyperplasia, multiple benign intraductal papillomas and duct ectasia - NONE - US BREAST NEEDLE CORE BIOPSY LT Left 2017 fibrocystic changes FAMILY HISTORY Problem Relation Age of Onset - other (epilepsie [Other]) Father Social History Socioeconomic History Marital status: Single Spouse name: Not on file Number of children: Not on file Years of education: Not on file Highest education level: Not on file Social Needs Financial resource strain: Not on file Food insecurity - worry: Not on file Food insecurity - inability: Not on file Transportation needs - medical: Not on file Transportation needs - non-medical: Not on file Occupational History Not on file Tobacco Use Smoking status: Never Smoker Smokeless tobacco: Never Used Substance and Sexual Activity Alcohol use: No Drug use: No Sexual activity: Yes Partners: Male control/protection: Pill Other Topics Concerns: Not on file Social History Narrative Merged History Encounter ALLERGIES Allergen Reactions - Amoxicillin Rash - Penicillins Rash - Gluten Unknown REVIEW OF SYSTEMS GENERAL: No weight loss, malaise or fevers Breast: see HPI Current Outpatient Medications: prazosin HCl (MINIPRESS ORAL) Take by mouth once daily. Disp: Rfl: hydroxyzine HCl (ATARAX ORAL) Take by mouth daily at bedtime. Disp: Rfl: ondansetron HCl (ZOFRAN ORAL) Take by mouth as needed. Disp: Rfl: NORLYDA 0.35 mg tablet Take 1 tablet by mouth once daily. Disp: Rfl: SUMAtriptan (IMITREX) 25 mg tablet Take 25 mg by mouth as needed. Disp: Rfl: magnesium oxide 400 mg cap Take 400 mg by mouth once daily. Disp: Rfl: RIBOFLAVIN (VITAMIN B-2 ORAL) Take 400 mg by mouth once daily. Disp: Rfl: HYDROcodone-acetaminoph en (NORCO) 5-325 mg per tablet Take 1 tablet by mouth every 6 hours as needed for Pain for up to 3 days. Disp: 12 tablet Rfl: 0 DULoxetine (CYMBALTA) 60 mg capsule Take 1 capsule by mouth once daily. Disp: 30 capsule Rfl: 2 No current facility-administered medications for this visit. BP 114/62 Pulse 102 Ht 5' 3 (1.60m) Wt 127 lb (57.6kg) BMI 22.50 kg/(m2). PHYSICAL EXAMINATION General appearance: alert, well appearing, and in no distress Mental status: alert, oriented to person, place and time Neck: supple, no significant adenopathy Breast Exam: On visual in spection of the breasts finds them to be Breasts: symmetric without skin changes or nipple retraction. While sitting upright, there were no breast defects or differences noted with arms down, above the head or on her waist. RIGHT Skin changes: No Nipple retraction:No Axillary adenopathy: No Supraclavicular adenopathy: No Palpable masses: No Tenderness: No Nipple discharge: No LEFT Skin changes: incision inside areola clean dry and intact with some ecchymosis; no palpable hematoma Nipple retraction:No Axillary adenopathy: No Supraclavicular adenopathy: No Palpable masses: firm tissue at 1:00 5 CFN Tenderness: No Nipple discharge: No ASSESSMENT/PLAN Fibrocystic changes of left breast Ms. Del Toro is a 18 year old female who is status post left breast excisional biopsy on 10/30/2018 for a painful left breast mass. Final pathology showed fibrocystic changes and benign intraductal papillomas. She is healing well after surgery with no signs of complications. She is still having significant pain and was given a prescription for norco. She was instructed to call if the pain doesn't improve. Otherwise, I will see her back in 9 months for a clinical exam. She should continue monthly breast awareness and call with any concerns. Makeda Acosta MD 11/07/2018 3:34 PM Normal [facility] ANES Mundo 10-30-2018 ANES POST HNO ID: [id number] Author: Tejas Boyd Service: Anesthesiology Author Type: Physician Type: Anesthesia PostOp Filed: 10/30/2018 1:48 PM Note Text: POST ANESTHESIA EVALUATION NOTE SERVICE DATE: 10/30/2018 SERVICE TIME: 1:48 PM : 2000 Vitals: 10/30/18 0732 10/30/18 0900 10/30/18 1100 Temp: 36.9 ?C (98.4 ?F) 36.1 ?C (97 ?F) 36.4 ?C (97.5 ?F) 10/30/18 1045 10/30/18 1100 10/30/18 1115 10/30/18 1130 BP: 92/58 98/54 98/64 90/50 10/30/18 1045 10/30/18 1100 10/30/18 1115 10/30/18 1130 Pulse: 80 74 92 76 10/30/18 1045 10/30/18 1100 10/30/18 1115 10/30/18 1130 Resp: 21 21 24 15 10/30/18 1045 10/30/18 1100 10/30/18 1115 04/29/19 1130 SpO2: 99% 99% 99% 99% Validated Vital Signs: Yes POST ANES STATUS: No apparent anesthetic complications. The patient is appropriately hydrated with stable respiratory and cardiovascular status. Patient has safe and adequate airway control. The patient has appropriate pain relief and no significant post operative nausea or vomiting. The patient has achieved baseline mental status. Intra-Operative Events: No Significant Anesthesia Events Further assessment by Anesthesia Service: None Other Remarks: SIGNATURE: Tejas Boyd MD PATIENT NAME: Darryl Bui DATE: October 30, 2018 TIME: 1:48 PM PAGER/CONTACT #: Turner [facility] ANES PREOPon 10-30-2018 ANES PREOP HNO ID: [id number] Author: Tejas Boyd Service: Anesthesiology Author Type: Physician Type: Anesthesia PreOp Filed: 10/30/2018 7:44 AM Note Text: ANESTHESIOLOGY DAY OF SURGERY NOTE SERVICE DATE: 10/30/2018 SERVICE TIME: 7:42 AM : 2000 Procedure(s) (LRB): LEFT BREAST EXCISIONAL BIOPSY (Left) Surgeon(s): Makeda Acosta Estimated body mass index is 22.5 kg/m? as calculated from the following: Height as of this encounter: 160 cm (5' 3). Weight as of this encounter: 57.6 kg (127 lb). Most recent hematocrit and potassium results: Hematocrit 41.0 05/31/2018 Potassium 4.1 05/31/2018 ANES DOS/PREOP NOTE: Vitals: 10/30/18 0732 BP: 99/58 Pulse: 63 Resp: 18 Temp: 36.9 ?C (98.4 ?F) SpO2: 99% Weight: 57.6 kg (127 lb) Height: 160 cm (5' 3) ACTIVE PROBLEM LIST Fibrocystic Changes of Left Breast Breast Pain Mdd (Major Depressive Disorder) Posttraumatic Stress Disorder Major Depressive Disorder PAST MEDICAL HISTORY Diagnosis Date - Anxiety and depression on celexa - Breast mass 2016 - Celiac disease - Gastroesophageal reflux disease - Migraine headache - Migraines - Psychiatric disorder depression PAST SURGICAL HISTORY Procedure Laterality Date - NONE - US BREAST NEEDLE CORE BIOPSY LT Left 2017 fibrocystic changes FAMILY HISTORY Problem Relation Age of Onset - other (epilepsie [Other]) Father Social History: Social History Tobacco Use - Smoking status: Never Smoker - Smokeless tobacco: Never Used Substance Use Topics - Alcohol use: No - Drug use: No No current facility-administered medications on file prior to encounter. Current Outpatient Medications on File Prior to Encounter: prazosin HCl (MINIPRESS ORAL) Take by mouth once daily. hydroxyzine HCl (ATARAX ORAL) Take by mouth daily at bedtime. ondansetron HCl (ZOFRAN ORAL) Take by mouth as needed. DULoxetine (CYMBALTA) 60 mg capsule Take 1 capsule by mouth once daily. NORLYDA 0.35 mg tablet Take 1 tablet by mouth once daily. magnesium oxide 400 mg cap Take 400 mg by mouth once daily. RIBOFLAVIN (VITAMIN B-2 ORAL) Take 400 mg by mouth once daily. SUMAtriptan (IMITREX) 25 mg tablet Take 25 mg by mouth as needed. Current Facility-Administered Medications: lidocaine 10 mg/mL (1 %) 1-2 mg injection (XYLOCAINE) 0.1-0.2 mL INTRADERMAL PRN Makeda Acosta lactated ringers infusion 5-30 mL/hr INTRAVENOUS CONTINUOUS Makeda Acosta clindamycin iv piggyback 900 mg in D5W 50 mL (CLEOCIN) 900 mg INTRAVENOUS Pre-Op Once Makeda Acosta Allergies: ALLERGIES Allergen Reactions - Amoxicillin Rash - Penicillins Rash - Gluten Unknown DOS EXAM: Adequate NPO status: Yes Anesthetic risks, benefits, alternatives, personnel and consent discussed: Yes Patient agrees to proceed: Yes Previous Anesthesia: No history of adverse event. Airway Assessment: MP 2; Neck ROM: Full ROM without neurologic symptoms; Airway Evaluation: No significant abnormalities Symptoms of Sleep Apnea: None Dentition: Teeth intact Additional Physical Exam: Lungs: Patient health status unchanged since recent history and physical. See history and physical for exam findings. Cardiac: Patient health status unchanged since recent history and physical. See history and physical for exam findings. Additional Pertinent Findings: N/A Blood Products: Not anticipated for this procedure. Anesthetic Plan: General, Standard ASA Monitors and Standard ASA Monitors with breast ERAS Pain Management Plan: Parenteral or Oral and per Surgical Service ASA Class: 1 Other Medical Problems: None Chronic Beta Bennett medication administered within 24 hours: N/A I have interviewed and examined the patient. I have reviewed the medical record and/or the pre-anesthesia evaluation, pertinent labs, and test results. Significant changes in the patient's condition since the History and Physical, not otherwise documented in primary service progress notes: No This contains updated information obtained within 48 hours of Surgery/Procedure. SIGNATURE: Tejas Boyd MD PATIENT NAME: Darryl Bui DATE: October 30, 2018 TIME: 7:42 AM CSN: [id number] [facility] OPERATIVE NOon 10-30-2018 OPERATIVE NO HNO ID: [id number] Author: Makeda Acosta Service: General Surgery Author Type: Physician Type: Operative Report Filed: 10/31/2018 12:40 PM Note Text: [facility] - Operative Report DARRYL BUI : 2000 AGE: 18. SEX: F PATIENT TYPE: A [facility]OSP [facility] [place]: [facility] LOCATION: [facility] ATTENDING PHYSICIAN: MAKEDA ACOSTA CSN NUMBER: [id number] DATE OF SURGERY/PROCEDURE: 10/30/2018 INCISION/PROCEDURE START TIME: 8:24 AM INCISION CLOSE/PROCEDURE END TIME: 8:55 AM PREOPERATIVE DIAGNOSIS: Left breast mass. POSTOPERATIVE DIAGNOSIS: Left breast mass. SURGEON: Makeda Acosta MD SENIOR AUDITOR: Misha Jose MD, surgical training specialist. SURGERY/PROCEDURE: Left breast excisional biopsy. ANESTHESIA: General. INDICATION: Ms. Bui is a 18-year-old female who initially presented to me for evaluation of a painful left breast lump in 2015. She subsequently underwent an ultrasound-guided biopsy, which returned fibrocystic changes. The mass was observed closely every 6 months and at her last appointment, she had noted that it increased in size and was more painful, and wished to have it excised for symptom control. The risks, benefits, and alternatives were explained to the patient and she agreed to proceed. DESCRIPTION OF PROCEDURE: The patient was brought back to the operating room and laid in the supine position. After adequate anesthesia was induced, the patient was prepped and draped in usual sterile fashion. A time-out was performed verifying the correct patient, site, and procedure. The patient received 900 mg of clindamycin prior to incision. A periareolar incision inside her areola was made that measured about 4 cm. Flaps were raised with electrocautery and I dissected out the mass located at 1 o'clock. This mass was hard on palpation and grasped with an Allis. I dissected around the mass being sure to include all the fibrocystic changes. This was removed and labeled left breast mass. There was no marking that I had been previously biopsied and was sent for permanent pathology. The wound was irrigated and hemostasis was achieved. A 20 mL of 0.5% Marcaine plain were injected. The space was closed using interrupted 3-0 Vicryl sutures. The wound was then closed using interrupted 3-0 Vicryl dermal stitches followed by running subcuticular 4-0 Monocryl. Exofin was applied. The patient was awoken and brought to recovery room in stable condition. All sponge and needle counts were correct. Makeda Acosta MD AM:[id number] /[id number] Normal [facility] Surgical Tissue Examon 10-30 Surgical Tissue Exam Test performed at [place] [address] NAME: DARRYL BUI REQUESTING: MAKEDA ACOSTA M.D. COPY TO: [facility] RADIOLOGY FINAL DIAGNOSIS: EXCISIONAL BIOPSY OF LEFT BREAST MASS - FIBROCYSTIC CHANGE WITH NUMEROUS APOCRINE CYSTS, DUCTAL CYSTS, USUAL DUCTAL HYPERPLASIA, MULTIPLE BENIGN INTRADUCTAL PAPILLOMAS, AND DUCT ECTASIA (PERIDUCTAL MASTITIS). PREVIOUS CORE BIOPSY SITE. OPERATIVE PROCEDURE: Excision cyst breast male or female open CLINICAL INFORMATION: Fibrocystic breast, left [N60.12] GROSS DESCRIPTION: Left breast mass, out at 8:38, formalin 8:42 Received in formalin labeled left breast mass is an unoriented irregular-shaped segment of yellow to white breast parenchyma measuring 5 x 2.5 x 2.0 cm and weighing 10 gm. The external surface is inked black. The specimen is serially sectioned perpendicular to the long axis into 12 slices. The slices reveal diffuse yellow to white fibrocystic changes with prominent cysts along 80% of the specimen (slices 4-12). A heart-shaped biopsy clip is identified inserted within slice 5. The remaining cut surfaces show dense yellow to white fibrous tissue. No distinct involvement by neoplasm is seen. The specimen is sequentially submitted from slice 1 to slice 12 in 12 cassettes. Time out: 8:38 on 10-30-18; time placed in formalin: 8:42 on 10-30-18. ARH:hoda GUILLORY M.D. (Electronic signature on file) Signed out: 11/01/2018 14:45 PRINTED: 11/01/2018 Page 1 of 1 [facility] Comment on above: Performed By: #### S URG #### [place] [address] CNCOon 10-17-2018 CNCO Letter Text Normal [facility] CNOVon 10-17-2018 CNOV Office Visit ([facility] R) JULIETTESARADARRYL Kwong ([id number]) 2000 F Date Time Provider Department 10/17/18 9:45 AM MAKEDA ACOSTA A[facility] During your visit today, we recorded the following information about you: Pulse Blood pressure Weight Height 80/minute 108/59 57.6 kg 1.6 m Deborah Marcus MA 10/17/2018 9:44 AM Signed Patient presents for left palpable lump with increasing pain. Patient would like to discuss surgical removal of this lump. ROWDY Wong MD 10/17/2018 9:55 AM Signed Chief Complaint:Patient presents with: Pre-Op Visit Breast Mass Darryl Kwong Gissell is a 18 year old female who presents today for her 6 month follow up of a palpable left breast mass that is painful. She is status post ultrasound guided biopsy of a left palpable breast mass on 01/17/2017. Final pathology returned fibrocystic changes and this is concordant. Last imaging was January 2018. She is noticed it increased in size and is now always painful. Especially at night when she lays on her side. She denies palpating any axillary adenopathy. No skin or nipple changes. No nipple discharge. PAST MEDICAL HISTORY Diagnosis Date - Anxiety and depression on celexa - Breast mass 2016 - Celiac disease - Gastroesophageal reflux disease - Migraine headache - Migraines - Psychiatric disorder depression PAST SURGICAL HISTORY Procedure Laterality Date - NONE - US BREAST NEEDLE CORE BIOPSY LT Left 2017 fibrocystic changes FAMILY HISTORY Problem Relation Age of Onset - other (epilepsie [Other]) Father Social History Socioeconomic History Marital status: Single Spouse name: Not on file Number of children: Not on file Years of education: Not on file Highest education level: Not on file Social Needs Financial resource strain: Not on file Food insecurity - worry: Not on file Food insecurity - inability: Not on file Transportation needs - medical: Not on file Transportation needs - non-medical: Not on file Occupational History Not on file Tobacco Use Smoking status: Never Smoker Smokeless tobacco: Never Used Substance and Sexual Activity Alcohol use: No Drug use: No Sexual activity: Yes Partners: Male control/protection: Pill Other Topics Concerns: Not on file Social History Narrative Merged History Encounter ALLERGIES Allergen Reactions - Amoxicillin Rash - Gluten Unknown - Penicillins Rash REVIEW OF SYSTEMS GENERAL: No weight loss, malaise or fevers Breast: see HPI Current Outpatient Medications: DULoxetine (CYMBALTA) 60 mg capsule Take 1 capsule by mouth once daily. Disp: 30 capsule Rfl: 2 NORLYDA 0.35 mg tablet Take 1 tablet by mouth once daily. Disp: Rfl: SUMAtriptan (IMITREX) 25 mg tablet Take 25 mg by mouth as needed. Disp: Rfl: magnesium oxide 400 mg cap Take 400 mg by mouth once daily. Disp: Rfl: RIBOFLAVIN (VITAMIN B-2 ORAL) Take 400 mg by mouth once daily. Disp: Rfl: No current facility-administered medications for this visit. BP 108/59 Pulse 80 Ht 5' 3 (1.60m) Wt 127 lb (57.6kg) BMI 22.50 kg/(m2). PHYSICAL EXAMINATION General appearance: alert, well appearing, and in no distress Mental status: alert, oriented to person, place and time Eyes: pupils equal and reactive, extraocular eye movements intact, conjuctiva and sclera clear Ears: bilateral external ear canals normal Nose: normal and patent, no erythema, no discharge Neck: supple, no significant adenopathy Lymphatics: no palpable lymphadenopathy, no hepatosplenomegaly Chest: clear to auscultation, no wheezes, rales or rhonchi, symmetric air entry Heart: normal rate, regular rhythm, normal S1,S2, no murmurs, rubs, clicks or gallops Breast Exam: On visual in spection of the breasts finds them to be Breasts: symmetric without skin changes or nipple retraction. While sitting upright, there were no breast defects or differences noted with arms down, above the head or on her waist. RIGHT Skin changes: No Nipple retraction:No Axillary adenopathy: No Supraclavicular adenopathy: No Palpable masses: No Tenderness: No Nipple discharge: No LEFT Skin changes: No Nipple retraction:No Axillary adenopathy: No Supraclavicular adenopathy: No Palpable masses: 1:00 5CFN measuring 3.5 cm x 3 cm; soft and mobile Tenderness: No Nipple discharge: No Pre-op Discussion of Benign Lesions: We have reviewed the risks, benefits and alternatives of the procedure. The risks are to include but not limited to bleeding, infection, inadequate surgical margins, sampling error with false results, unsightly scar, chronic pain, collateral damage, and incomplete resection resulting in a residual mass, and imponderables to include, but not limited to disability or . She understands that if there is a diagnosis of cancer, further surgical treatment will be required. I have answered all of her questions to her satisfaction, she verbalizes that she understands the risks and requests to proceed. ASSESSMENT/PLAN Fibrocystic changes of left breast Ms. Del Toro is a 18 year old female with a painful left breast lump. This was biopsied in 2016 which returned fibrocystic changes. The pain has increased and she would like it excised. It is unchanged on my clinical exam. I recommend excision for symptom control. She will be scheduled for a left breast excisional biopsy at her earliest convenience. She was instructed to call with any concerns. Makeda Acosta MD 10/17/2018 9:50 AM Makeda Acosta MD 10/17/2018 9:54 AM Written Ms. Del Toro is a 18 year old female with a painful left breast lump. This was biopsied in 2017 which returned fibrocystic changes. The pain has increased and she would like it excised. It is unchanged on my clinical exam. I recommend excision for symptom control. She will be scheduled for a left breast excisional biopsy at her earliest convenience. She was instructed to call with any concerns. Fiber Optic Technician: Facesheet ID: [id number] 10/17/2018 12:00 AM Author: ARACELY, PROVIDER Signed by CC PROVIDER on 10/17/2018 at 9:35 AM Document text: Display document [id number] only Facesheet ID: [id number] 10/17/2018 12:00 AM Author: ARACELY PROVIDER Signed by ARACELY PROVIDER on 10/17/2018 at 9:35 AM Document text: Display document [id number] only Referring Provider: KRISTIAN QUINONES [[id number]] Allergies As of Date: 10/17/2018 Noted Allergy Reaction AMOXICILLIN 12/21/2012 2 - Rash GLUTEN 05/01/2018 16 - Unknown PENICILLINS 09/12/2015 2 - Rash Date Reviewed: 10/17/2018 Reviewed by: Makeda Acosta - Fully Assessed Reason for Visit: Pre-Op Visit [1235] Breast Mass [284] Visit Diagnosis:Fibrocystic changes of left breast [N60.12] Prescriptions as of 10/17/2018 Sig: DULOXETINE 60 MG CAPSULE,CHRISTIANO* Take 1 capsule by mouth once * NORLYDA 0.35 MG TABLET Take 1 tablet by mouth once d* SUMATRIPTAN 25 MG TABLET Take 25 mg by mouth as needed* MAGNESIUM OXIDE 400 MG CAPSULE Take 400 mg by mouth once bennett* VITAMIN B-2 ORAL Take 400 mg by mouth once bennett* Problem List As Of Date 10/17/2018 Noted Resolved Lump or mass in breast [N63.0] INVALID FOR*01/09/2016 More... Solitary cyst of left breast [N60.02] INVALID FOR*01/09/2016 Diffuse cystic mastopathy of left breast [N60.1*INVALID FOR*01/07/2017 More... Lump or mass in breast [N63.0] INVALID FOR*01/21/2017 More... Fibrocystic changes of left breast [N60.12] INVALID FOR* More... Breast pain [N64.4] INVALID FOR* More... MDD (major depressive disorder) [F32.9] INVALID FOR* Posttraumatic stress disorder [F43.10] INVALID FOR* Major depressive disorder [F32.9] INVALID FOR* Visit Notes: >> Deborah Carrillo Oct 17, 2018 9:43 AM Status: Signed Patient presents for left palpable lump with increasing pain. Patient would like to discuss surgical removal of this lump. Deborah Marcus MA Level of Service: EST PATIENT VISIT LEVEL 4 [22256] Disposition: Return in about 1 month (around 11/16/2018). Follow-up and Disposition History Recorded Encounter Status:Closed by MAKEDA ACOSTA MD on 10/17/18 [facility] HISTORY PHYSICALon HISTORY PHYSICAL HNO ID: [id number] Author: Makeda Acosta Service: ? Author Type: Physician Type: HANDP Filed: 10/17/2018 9:55 AM Note Text: Chief Complaint:Patient presents with: Pre-Op Visit Breast Mass Darryl Bui is a 18 year old female who presents today for her 6 month follow up of a palpable left breast mass that is painful. She is status post ultrasound guided biopsy of a left palpable breast mass on 01/17/2017. Final pathology returned fibrocystic changes and this is concordant. Last imaging was January 2018. She is noticed it increased in size and is now always painful. Especially at night when she lays on her side. She denies palpating any axillary adenopathy. No skin or nipple changes. No nipple discharge. PAST MEDICAL HISTORY Diagnosis Date - Anxiety and depression on celexa - Breast mass 2016 - Celiac disease - Gastroesophageal reflux disease - Migraine headache - Migraines - Psychiatric disorder depression PAST SURGICAL HISTORY Procedure Laterality Date - NONE - US BREAST NEEDLE CORE BIOPSY LT Left 2017 fibrocystic changes FAMILY HISTORY Problem Relation Age of Onset - other (epilepsie [Other]) Father Social History Socioeconomic History Marital status: Single Spouse name: Not on file Number of children: Not on file Years of education: Not on file Highest education level: Not on file Social Needs Financial resource strain: Not on file Food insecurity - worry: Not on file Food insecurity - inability: Not on file Transportation needs - medical: Not on file Transportation needs - non-medical: Not on file Occupational History Not on file Tobacco Use Smoking status: Never Smoker Smokeless tobacco: Never Used Substance and Sexual Activity Alcohol use: No Drug use: No Sexual activity: Yes Partners: Male control/protection: Pill Other Topics Concerns: Not on file Social History Narrative Merged History Encounter ALLERGIES Allergen Reactions - Amoxicillin Rash - Gluten Unknown - Penicillins Rash REVIEW OF SYSTEMS GENERAL: No weight loss, malaise or fevers Breast: see HPI Current Outpatient Medications: DULoxetine (CYMBALTA) 60 mg capsule Take 1 capsule by mouth once daily. Disp: 30 capsule Rfl: 2 NORLYDA 0.35 mg tablet Take 1 tablet by mouth once daily. Disp: Rfl: SUMAtriptan (IMITREX) 25 mg tablet Take 25 mg by mouth as needed. Disp: Rfl: magnesium oxide 400 mg cap Take 400 mg by mouth once daily. Disp: Rfl: RIBOFLAVIN (VITAMIN B-2 ORAL) Take 400 mg by mouth once daily. Disp: Rfl: No current facility-administered medications for this visit. BP 108/59 Pulse 80 Ht 5' 3 (1.60m) Wt 127 lb (57.6kg) BMI 22.50 kg/(m2). PHYSICAL EXAMINATION General appearance: alert, well appearing, and in no distress Mental status: alert, oriented to person, place and time Eyes: pupils equal and reactive, extraocular eye movements intact, conjuctiva and sclera clear Ears: bilateral external ear canals normal Nose: normal and patent, no erythema, no discharge Neck: supple, no significant adenopathy Lymphatics: no palpable lymphadenopathy, no hepatosplenomegaly Chest: clear to auscultation, no wheezes, rales or rhonchi, symmetric air entry Heart: normal rate, regular rhythm, normal S1,S2, no murmurs, rubs, clicks or gallops Breast Exam: On visual in spection of the breasts finds them to be Breasts: symmetric without skin changes or nipple retraction. While sitting upright, there were no breast defects or differences noted with arms down, above the head or on her waist. RIGHT Skin changes: No Nipple retraction:No Axillary adenopathy: No Supraclavicular adenopathy: No Palpable masses: No Tenderness: No Nipple discharge: No LEFT Skin changes: No Nipple retraction:No Axillary adenopathy: No Supraclavicular adenopathy: No Palpable masses: 1:00 5CFN measuring 3.5 cm x 3 cm; soft and mobile Tenderness: No Nipple discharge: No Pre-op Discussion of Benign Lesions: We have reviewed the risks, benefits and alternatives of the procedure. The risks are to include but not limited to bleeding, infection, inadequate surgical margins, sampling error with false results, unsightly scar, chronic pain, collateral damage, and incomplete resection resulting in a residual mass, and imponderables to include, but not limited to disability or . She understands that if there is a diagnosis of cancer, further surgical treatment will be required. I have answered all of her questions to her satisfaction, she verbalizes that she understands the risks and requests to proceed. ASSESSMENT/PLAN Fibrocystic changes of left breast Ms. Del Toro is a 18 year old female with a painful left breast lump. This was biopsied in 2017 which returned fibrocystic changes. The pain has increased and she would like it excised. It is unchanged on my clinical exam. I recommend excision for symptom control. She will be scheduled for a left breast excisional biopsy at her earliest convenience. She was instructed to call with any concerns. Makeda Acosta MD 10/17/2018 9:50 AM Normal [facility] HOSPon 10-17-2018 HOSP Patient:Pamella Bui MRN: Height:5' 3(1.6 m) Weight:127 lb (57.607 kg) Outpatient Medications as of 10/30/18: prazosin HCl (MINIPRESS ORAL) hydroxyzine HCl (ATARAX ORAL) ondansetron HCl (ZOFRAN ORAL) DULoxetine (CYMBALTA) 60 mg capsule NORLYDA 0.35 mg tablet SUMAtriptan (IMITREX) 25 mg tablet magnesium oxide 400 mg cap RIBOFLAVIN (VITAMIN B-2 ORAL) Admission/Clinic Administered Medications as of 10/30/18: lidocaine 10 mg/mL (1 %) 1-2 mg injection (XYLOCAINE) lactated ringers infusion clindamycin iv piggyback 900 mg in D5W 50 mL (CLEOCIN) Problem List: Fibrocystic changes of left breast [N60.12] Breast pain [N64.4] MDD (major depressive disorder) [F32.9] Posttraumatic stress disorder [F43.10] Major depressive disorder [F32.9] Allergies: Amoxicillin Penicillins Gluten Date Verified: 10/30/18 Lab Values No results within the last 30 days for the following basenames: K,HCT No progress notes entered within the past 30 days Normal [facility] Office Visit (Urgent Care)on 01-19-2018 Office Visit (Urgent Care) Chief Complaint Visit For: Other History of Present Rtcrowv58 yo female here after exposure to head lice. 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 has known dry flaky scalp, now with increased itching. Active Problems Contusion of left knee (924.11) (S80.02XA) Knee injury (959.7) (S89.90XA) Social History Never a smoker Allergies Penicillins Recorded By: ZoeOctober; 11/24/2015 12:28:46 PM Current Meds CeleXA 10 MG Oral Tablet (Citalopram Hydrobromide);Therapy: (Recorded:97Spw2881) to Recorded Dispense: 0 Days ; #: [...] Bryan Rodriguez; 11/24/2015 12:35:49 PM Riboflavin CAPS;Therapy: (Recorded:33Agm3349) to Recorded Dispense: 0 Days ; #: Sufficient CAPS; Refill: 0; DEVENDRA = N; Record; Last Updated By: ZoeOctober; 01/19/2018 11:58:27 AM SUMAtriptan 20 MG/ACT Nasal Solution; instill 1 spray IN LEFT NOSTRIL if needed;Therapy: 21Oct2015 to Recorded Rx By: BENJA,PRETTI; Dispense: 23 Days ; #:6 SOLN; Refill: 0; DEVENDRA = N; Record; Last Updated By: Bryan Rodriguez; 11/24/2015 12:35:49 PM Topiramate 50 MG Oral Tablet;Therapy: 08May2015 to Recorded Dispense: 30 Days ; #:60 TABS; Refill: 0; DEVENDRA = N; Record; Last Updated By: Bryan Rodriguez; 11/24/2015 12:35:49 PM Vitamin B-2 100 MG Oral Tablet;Therapy: (Recorded:24Nov2015) to Recorded Dispense: 0 Days ; #: Sufficient TABS; Refill: 0; DEVENDRA = N; Record; Last Updated By: ZoeOctober; 11/24/2015 12:28:46 PM Vitals Vital Signs Recorded: 19Jan2018 11:13TUIcleyqnlktq41.7 FHeart Vgjk40Ozlzcqbinxl81Zzzt dpjx202Oxcjtmaqr19Gtmje t5 ft 3 gfBydbyn749 lb BMI Aelkbveguj03.37BSA Calculated1.53BMI Gewvntrvvr00 %2-20 Stature Zljnrbqwqj73 %2-20 Weight Xhzxugagjf86 %O2 Badgubgxpl838COD5 month agoPain Scale0 Physical ExamGen- No apparent distressScalp- very dry flaky scalp. No evidence of organisms. Difficult to tell if a few nits may be present Diagnoses/Problems Itchy scalp (698.9) (L29.9) OrdersItchy scalp Start: Permethrin 5 % External Cream; APPLY DIRECTED Rx By: Dontae Guadarrama; Dispense: 0 Days ; #:1 X 60 GM Tube; Refill: 0;For: Itchy scalp; DEVENDRA = N; Sent To: [facility] [facility] Provider Impressions1. Exposure to head lice- poss nits seen. Permethrin End of Encounter MedsCeleXA 10 MG Oral Tablet (Citalopram Hydrobromide);Therapy: (Recorded:24Nov2015) to RecordedCitalopram Hydrobromide 20 MG Oral Tablet; take 1 tablet by mouth once daily;Therapy: 28Oct2015 to RecordedPermethrin 5 % External Cream; APPLY DIRECTED;Therapy: 19Jan2018 to (Last Rx:19Jan2018) OrderedRiboflavin CAPS;Therapy: (Recorded:44Fgd4425) to RecordedSUMAtriptan 20 MG/ACT Nasal Solution; instill 1 spray IN LEFT NOSTRIL if needed;Therapy: 21Oct2015 to RecordedTopiramate 50 MG Oral Tablet;Therapy: 08May2015 to RecordedVitamin B-2 100 MG Oral Tablet;Therapy: (Recorded:95Dyo3618) to Recorded Signatures Electronically signed by : Dontae Guadarrama MD; Jan 19 2018 12:21PM EST (Author) [facility] Report: CT/[facility] BY PCR on 07-12-2017 Chlamydia trachomatis DNA [Presence] in Urine by Probe and target amplification method Negative Invalid Interpretation Code Negative [facility] Neisseria gonorrhoeae presence Negative Invalid Interpretation Code Negative [facility] Lab Report: CT/[facility] BY PCR on 02-01-2017 Chlamydia trachomatis DNA [Presence] in Urine by Probe and target amplification method Negative Invalid Interpretation Code Negative [facility] Neisseria gonorrhoeae presence Negative Invalid Interpretation Code Negative [facility] Office Visit: Annualon 01-31 Documentation of current medications (procedure) Done Invalid Interpretation Code [facility] Fall risk assessment No Invalid Interpretation Code [facility] HCG.beta subunit ( test) Ql (U) Negative [facility] Protein mass conc Done [facility][1[facility] Never Invalid Interpretation Code [facility] Tobacco smoking [facility] Tobacco smoking status NHIS Invalid Interpretation Code [facility] Tobacco [facility] Never smoker [facility] Tobacco use [facility] Never smoker Invalid Interpretation Code [facility] Urine, test (choriogonadotropin presence) Negative Invalid Interpretation Code [facility] Culture, urine Bacteria identified Cx Nom (U) Positive [facility] Work Phone: Vital Signs Date Time Vital Sign Value Performing Clinician Facility 12-26-2024 10:20-0400 Body height 160.[address] Fabiola Bearden DO Work Phone: [facility] 12-26-2024 10:18-0400 Body mass index (BMI) [Ratio] 23.7 kg/m2 Dr. Fabiola Bearden DO Work Phone: [facility] 12-26-2024 10:18-0400 Body weight 60.[address] Fabiola Bearden DO Work Phone: [facility] 12-26-2024 10:18-0400 Diastolic blood pressure 72 mm[Hg] Dr. Fabiola Bearden DO Work Phone: [facility] 12-26-2024 10:18-0400 Systolic blood pressure 112 mm[Hg] Dr. Fabiola Bearden DO Work Phone: [facility] 11-28-2024 15:42-0400 Body height 160.[address] Fabiola Bearden DO Work Phone: [facility] 11-28-2024 15:40-0400 Body mass index (BMI) [Ratio] 23.7 kg/m2 Dr. Fabiola Bearden DO Work Phone: [facility] 11-28-2024 15:40-0400 Body weight 60.[address] Fabiola Bearden DO Work Phone: [facility] 11-28-2024 15:40-0400 Diastolic blood pressure 74 mm[Hg] Dr. Fabiola Bearden DO Work Phone: [facility] 11-28-2024 15:40-0400 Systolic blood pressure 103 mm[Hg] Dr. Fabiola Bearden DO Work Phone: [facility] 11-16-2024 14:30-0400 Body temperature 98.3 [degF] Dr. Fabiola Bearden DO Work Phone: [facility] 11-16-2024 14:30-0400 Diastolic blood pressure 73 mm[Hg] Dr. Fabiola Bearden DO Work Phone: [facility] 11-16-2024 14:30-0400 Heart rate 71 /min Dr. Fabiola Bearden DO Work Phone: [facility] 11-16-2024 14:30-0400 Respiratory rate 16 /min Dr. Fabiola Bearden DO Work Phone: [facility] 11-16-2024 14:30-0400 SaO2% (BldA) [Mass fraction] 100 % Dr. Fabiola Bearden DO Work Phone: [facility] 11-16-2024 14:30-0400 Systolic blood pressure 109 mm[Hg] Dr. Fabiola Bearden DO Work Phone: [facility] 11-14-2024 21:18-0400 Body height 160.[address] Fabiola Bearden DO Work Phone: [facility] 11-14-2024 21:18-0400 Body mass index (BMI) [Ratio] 30.1 kg/m2 Dr. Fabiola Bearden DO Work Phone: [facility] 11-14-2024 21:18-0400 Body weight 77.[address] Fabiola Bearedn DO Work Phone: [facility] 11-13-2024 15:17-0400 Body height 160.[address] Fabiola Bearden DO Work Phone: [facility] 11-13-2024 15:17-0400 Body mass index (BMI) [Ratio] 30.3 kg/m2 Dr. Fabiola Bearden DO Work Phone: [facility] 11-13-2024 15:17-0400 Body weight 77.[address] Fabiola Bearden DO Work Phone: [facility] 11-13-2024 15:17-0400 Diastolic blood pressure 78 mm[Hg] Dr. Fabiola Bearden DO Work Phone: [facility] 11-13-2024 15:17-0400 Systolic blood pressure 120 mm[Hg] Dr. Fabiola Bearden DO Work Phone: [facility] 11-08-2024 18:14-0400 Body temperature 97 [degF] Alfreda MONTENEGRO-C Work Phone: [facility] 11-08-2024 18:14-0400 Diastolic blood pressure 67 mm[Hg] Alfreda David PA-C Work Phone: [facility] 11-08-2024 18:14-0400 Heart rate 119 /min Alfreda Wormald PA-C Work Phone: [facility] 11-08-2024 18:14-0400 Respiratory rate 16 /min Alfreda Wormald PA-C Work Phone: [facility] 11-08-2024 18:14-0400 SaO2% (BldA) [Mass fraction] 99 % Alfreda Wormald PA-C Work Phone: [facility] 11-08-2024 18:14-0400 Systolic blood pressure 136 mm[Hg] Alfreda Wormald PA-C Work Phone: [facility] 11-08-2024 00:58-0400 Heart rate 80 /min Dr. Fabiola Bearden DO Work Phone: [facility] 11-08-2024 00:58-0400 SaO2% (BldA) [Mass fraction] 98 % Dr. Fabiola Bearden DO Work Phone: [facility] 11-07-2024 23:53-0400 Diastolic blood pressure 73 mm[Hg] Dr. Fabiola Bearden DO Work Phone: [facility] 11-07-2024 23:53-0400 Systolic blood pressure 111 mm[Hg] Dr. Fabiola Bearden DO Work Phone: [facility] 11-07-2024 22:44-0400 Body height 160.[address] Fabiola Bearden DO Work Phone: [facility] 11-07-2024 22:44-0400 Body mass index (BMI) [Ratio] 30.4 kg/m2 Dr. Fabiola Bearden DO Work Phone: [facility] 11-07-2024 22:44-0400 Body weight 77.[address] Fabiola Bearden DO Work Phone: [facility] 11-07-2024 22:22-0400 Body temperature 97.8 [degF] Dr. Fabiola Bearden DO Work Phone: [facility] 11-07-2024 22:22-0400 Respiratory rate 16 /min Dr. Fabiola Bearden DO Work Phone: [facility] 11-01-2024 10:50-0400 Body temperature 98.3 [degF] Dr. Fabiola Bearden DO Work Phone: [facility] 11-01-2024 10:50-0400 Heart rate 120 /min Dr. Fabiola Bearden DO Work Phone: [facility] 11-01-2024 10:50-0400 Respiratory rate 16 /min Dr. Fabiola Bearden DO Work Phone: [facility] 11-01-2024 10:50-0400 SaO2% (BldA) [Mass fraction] 98 % Dr. Fabiola Bearden DO Work Phone: [facility] 11-01-2024 10:48-0400 Diastolic blood pressure 64 mm[Hg] Dr. Fabiola Bearden DO Work Phone: [facility] 11-01-2024 10:48-0400 Systolic blood pressure 109 mm[Hg] Dr. Fabiola Bearden DO Work Phone: [facility] 11-01-2024 10:41-0400 Body mass index (BMI) [Ratio] 31.1 kg/m2 Dr. Fabiola Bearden DO Work Phone: [facility] 11-01-2024 10:41-0400 Body weight 77.[address] Fabiola Bearden DO Work Phone: [facility] 10-29-2024 14:57-0400 Body mass index (BMI) [Ratio] 29.5 kg/m2 Dr. Fabiola Bearden DO Work Phone: [facility] 10-29-2024 14:57-0400 Body weight 75.[address] Fabiola Bearden DO Work Phone: [facility] 10-29-2024 14:57-0400 Diastolic blood pressure 72 mm[Hg] Dr. Fabiola Bearden DO Work Phone: [facility] 10-29-2024 14:57-0400 Systolic blood pressure 115 mm[Hg] Dr. Fabiola Bearden DO Work Phone: [facility] 10-25-2024 10:27-0400 Heart rate 117 /min Dr. Fabiola Bearden DO Work Phone: [facility] 10-25-2024 10:27-0400 SaO2% (BldA) [Mass fraction] 98 % Dr. Fabiola Bearden DO Work Phone: [facility] 10-25-2024 10:22-0400 Body mass index (BMI) [Ratio] 28.9 kg/m2 Dr. Fabiola Bearden DO Work Phone: [facility] 10-25-2024 10:22-0400 Body weight 74.[address] Fabiola Bearden DO Work Phone: [facility] 10-25-2024 10:01-0400 Body temperature 98.1 [degF] Dr. Fabiola Bearden DO Work Phone: [facility] 10-25-2024 10:01-0400 Diastolic blood pressure 70 mm[Hg] Dr. Fabiola Bearden DO Work Phone: [facility] 10-25-2024 10:01-0400 Respiratory rate 16 /min Dr. Fabiola Bearden DO Work Phone: [facility] 10-25-2024 10:01-0400 Systolic blood pressure 143 mm[Hg] Dr. Fabiola Bearden DO Work Phone: [facility] 10-17-2024 15:23-0400 Body mass index (BMI) [Ratio] 26.8 kg/m2 Dr. Fabiola Bearden DO Work Phone: [facility] 10-17-2024 15:23-0400 Body weight 75.[address] Fabiola Bearden DO Work Phone: [facility] 10-17-2024 15:23-0400 Diastolic blood pressure 75 mm[Hg] Dr. Fabiola Bearden DO Work Phone: [facility] 10-17-2024 15:23-0400 Systolic blood pressure 111 mm[Hg] Dr. Fabiola Bearden DO Work Phone: [facility] 10-09-2024 16:09-0400 Body mass index (BMI) [Ratio] 28.2 kg/m2 Dr. Fabiola Bearden DO Work Phone: [facility] 10-09-2024 16:09-0400 Body weight 79.[address] Fabiola Bearden DO Work Phone: [facility] 10-09-2024 14:23-0400 Heart rate 85 /min Dr. Fabiola Bearden DO Work Phone: [facility] 10-09-2024 14:23-0400 SaO2% (BldA) [Mass fraction] 98 % Dr. Fabiola Bearden DO Work Phone: [facility] 10-09-2024 14:00-0400 Diastolic blood pressure 59 mm[Hg] Dr. Fabiola Bearden DO Work Phone: [facility] 10-09-2024 14:00-0400 Systolic blood pressure 99 mm[Hg] Dr. Fabiola Bearden DO Work Phone: [facility] 10-09-2024 13:57-0400 Body height 160.[address] Fabiola Bearden DO Work Phone: [facility] 10-09-2024 13:57-0400 Body mass index (BMI) [Ratio] 29 kg/m2 Dr. Fabiola Bearden DO Work Phone: [facility] 10-09-2024 13:57-0400 Body weight 74.[address] Fabiola Bearden DO Work Phone: [facility] 10-09-2024 13:45-0400 Body temperature 98.3 [degF] Dr. Fabiola Bearden DO Work Phone: [facility] 10-09-2024 13:45-0400 Respiratory rate 16 /min Dr. Fabiola Bearden DO Work Phone: [facility] 10-02-2024 15:00-0400 Body mass index (BMI) [Ratio] 28.3 kg/m2 Dr. Fabiola Bearden DO Work Phone: [facility] 10-02-2024 15:00-0400 Body weight 72.[address] Fabiola Bearden DO Work Phone: [facility] 10-02-2024 15:00-0400 Diastolic blood pressure 71 mm[Hg] Dr. Fabiola Bearden DO Work Phone: [facility] 10-02-2024 15:00-0400 Systolic blood pressure 106 mm[Hg] Dr. Fabiola Bearden DO Work Phone: [facility] 09-05-2024 15:00-0500 Body height 160.[address] Fabiola Bearden DO Work Phone: [facility] 09-05-2024 15:00-0500 Body mass index (BMI) [Ratio] 27.5 kg/m2 Dr. Fabiola Bearden DO Work Phone: [facility] 09-05-2024 15:00-0500 Body weight 70.[address] Fabiola Bearden DO Work Phone: [facility] 09-05-2024 15:00-0500 Diastolic blood pressure 75 mm[Hg] Dr. Fabiola Bearden DO Work Phone: [facility] 09-05-2024 15:00-0500 Systolic blood pressure 111 mm[Hg] Dr. Fabiola Bearden DO Work Phone: [facility] 08-14-2024 14:10-0500 Body mass index (BMI) [Ratio] 26.5 kg/m2 Dr. Fabiola Bearden DO Work Phone: [facility] 08-14-2024 14:10-0500 Body weight 68.[address] Fabiola Bearden DO Work Phone: [facility] 08-14-2024 14:10-0500 Diastolic blood pressure 81 mm[Hg] Dr. Fabiola Bearden DO Work Phone: [facility] 08-14-2024 14:10-0500 Systolic blood pressure 123 mm[Hg] Dr. Fabiola Bearden DO Work Phone: [facility] 08-09-2024 16:48-0500 Body mass index (BMI) [Ratio] 26.34 kg/m2 Alfreda Wormald PA-C Work Phone: [facility] 08-09-2024 16:48-0500 Body temperature 98.6 [degF] Alfreda Wormald PA-C Work Phone: [facility] 08-09-2024 16:48-0500 Body weight 67.45 kg Alfreda Wormald PA-C Work Phone: [facility] 08-09-2024 16:48-0500 Diastolic blood pressure 60 mm[Hg] Alfreda Wormald PA-C Work Phone: [facility] 08-09-2024 16:48-0500 Heart rate 146 /min Alfreda Wormald PA-C Work Phone: [facility] 08-09-2024 16:48-0500 Respiratory rate 16 /min Alfreda Wormald PA-C Work Phone: [facility] 08-09-2024 16:48-0500 SaO2% (BldA) [Mass fraction] 97 % Alfreda Wormald PA-C Work Phone: [facility] 08-09-2024 16:48-0500 Systolic blood pressure 103 mm[Hg] Alfreda Wormald PA-C Work Phone: [facility] 07-09-2024 14:19-0500 Body mass index (BMI) [Ratio] 25.4 kg/m2 Dr. Fabiola Bearden DO Work Phone: [facility] 07-09-2024 14:19-0500 Body weight 65.[address] Fabiola Bearden DO Work Phone: [facility] 07-09-2024 14:19-0500 Diastolic blood pressure 69 mm[Hg] Dr. Fabiola Bearden DO Work Phone: [facility] 07-09-2024 14:19-0500 Systolic blood pressure 110 mm[Hg] Dr. Fabiola Bearden DO Work Phone: [facility] 06-07-2024 15:40-0500 Body mass index (BMI) [Ratio] 24.3 kg/m2 Dr. Fabiola Bearden DO Work Phone: [facility] 06-07-2024 15:40-0500 Body weight 62.[address] Fabiola Bearden DO Work Phone: [facility] 06-07-2024 15:40-0500 Diastolic blood pressure 77 mm[Hg] Dr. Fabiola Bearden DO Work Phone: [facility] 06-07-2024 15:40-0500 Systolic blood pressure 118 mm[Hg] Dr. Fabiola Bearden DO Work Phone: [facility] 12-22-2022 13:14-0400 Body temperature 97.39 [degF] Juliet Ponce APRN.[employer] Work Phone: [facility] 12-22-2022 13:14-0400 Body weight 65.77 kg Juliet Ponce APRN.[employer] Work Phone: [facility] 12-22-2022 13:14-0400 Diastolic blood pressure 74 mm[Hg] Juliet Ponce APRN.[employer] Work Phone: [facility] 12-22-2022 13:14-0400 Heart rate 72 /min Juliet Ponce APRN.[employer] Work Phone: [facility] 12-22-2022 13:14-0400 SaO2% (BldA) [Mass fraction] 96 % Juliet Ponce APRN.[employer] Work Phone: [facility] 12-22-2022 13:14-0400 Systolic blood pressure 122 mm[Hg] Juliet Kris BAIN Work Phone: [facility] 10-17-2022 14:57-0400 Body temperature 98.5 [degF] Dr. Fabiola Bearden Work Phone: [facility] 10-17-2022 14:57-0400 Diastolic blood pressure 76 mm[Hg] Dr. Fabiola Bearden Work Phone: [facility] 10-17-2022 14:57-0400 Heart rate 83 /min Dr. Fabiola Bearden Work Phone: [facility] 10-17-2022 14:57-0400 Respiratory rate 14 /min Dr. Fabiola Bearden Work Phone: [facility] 10-17-2022 14:57-0400 Systolic blood pressure 110 mm[Hg] Dr. Fabiola Bearden Work Phone: [facility] 10-17-2022 07:30-0400 SaO2% (BldA) [Mass fraction] 97 % Dr. Fabiola Bearden Work Phone: [facility] 10-16-2022 10:00-0400 Body height 160.[address] Fabiola Bearden Work Phone: [facility] 10-16-2022 10:00-0400 Body mass index (BMI) [Ratio] 29.7 kg/m2 Dr. Fabiola Bearden Work Phone: [facility] 10-16-2022 10:00-0400 Body weight 76.[address] Fabiola Bearden Work Phone: [facility] 10-15-2022 15:55-0400 Body mass index (BMI) [Ratio] 29.9 kg/m2 Dr. Fabiola Bearden Work Phone: [facility] 10-15-2022 15:55-0400 Body weight 76.[address] Fabiola Bearden Work Phone: [facility] 10-15-2022 15:55-0400 Diastolic blood pressure 75 mm[Hg] Dr. Fabiola Bearden Work Phone: [facility] 10-15-2022 15:55-0400 Systolic blood pressure 107 mm[Hg] Dr. Fabiola Bearden Work Phone: [facility] 10-08-2022 16:02-0400 Body mass index (BMI) [Ratio] 29.9 kg/m2 Dr. Fabiola Bearden Work Phone: [facility] 10-08-2022 16:02-0400 Body weight 76.[address] Fabiola Bearden Work Phone: [facility] 10-08-2022 16:02-0400 Diastolic blood pressure 71 mm[Hg] Dr. Fabiola Bearden Work Phone: [facility] 10-08-2022 16:02-0400 Systolic blood pressure 113 mm[Hg] Dr. Fabiola Bearden Work Phone: [facility] 10-01-2022 16:00-0400 Body height 160.[address] Fabiola Bearden Work Phone: [facility] 10-01-2022 15:59-0400 Body mass index (BMI) [Ratio] 29.5 kg/m2 Dr. Fabiola Bearden Work Phone: [facility] 10-01-2022 15:59-0400 Body weight 75.[address] Fabiola Bearden Work Phone: [facility] 10-01-2022 15:59-0400 Diastolic blood pressure 80 mm[Hg] Dr. Fabiola Bearden Work Phone: [facility] 10-01-2022 15:59-0400 Systolic blood pressure 114 mm[Hg] Dr. Fabiola Bearden Work Phone: [facility] 09-17-2022 15:59-0400 Body mass index (BMI) [Ratio] 28.8 kg/m2 Dr. Fabiola Bearden Work Phone: [facility] 09-17-2022 15:59-0400 Body weight 73.[address] Fabiola Bearden Work Phone: [facility] 09-17-2022 15:59-0400 Diastolic blood pressure 71 mm[Hg] Dr. Fabiola Bearden Work Phone: [facility] 09-17-2022 15:59-0400 Systolic blood pressure 106 mm[Hg] Dr. Fabiola Bearden Work Phone: [facility] 09-01-2022 19:16-0500 Heart rate 65 /min Dr. Fabiola Bearden Work Phone: [facility] 09-01-2022 19:16-0500 SaO2% (BldA) [Mass fraction] 99 % Dr. Fabiola Bearden Work Phone: [facility] 09-01-2022 19:14-0500 Diastolic blood pressure 65 mm[Hg] Dr. Fabiola Bearden Work Phone: [facility] 09-01-2022 19:14-0500 Systolic blood pressure 109 mm[Hg] Dr. Fabiola Bearden Work Phone: [facility] 09-01-2022 15:50-0500 Body temperature 98.4 [degF] Dr. Fabiola Bearden Work Phone: [facility] 09-01-2022 15:42-0500 Body height 160.[address] Fabiola Bearden Work Phone: [facility] 09-01-2022 15:42-0500 Body mass index (BMI) [Ratio] 28.5 kg/m2 Dr. Fabiola Bearden Work Phone: [facility] 09-01-2022 15:42-0500 Body weight 73.[address] Fabiola Bearden Work Phone: [facility] 08-31-2022 13:47-0500 Body mass index (BMI) [Ratio] 28.7 kg/m2 Dr. Fabiola Bearden Work Phone: [facility] 08-31-2022 13:47-0500 Body weight 73.[address] Fabiola Bearden Work Phone: [facility] 08-31-2022 13:47-0500 Diastolic blood pressure 75 mm[Hg] Dr. Fabiola Bearden Work Phone: [facility] 08-31-2022 13:47-0500 Systolic blood pressure 112 mm[Hg] Dr. Fabiola Bearden Work Phone: [facility] 08-20-2022 15:45-0500 Body height 160.[address] Fabiola Bearden Work Phone: [facility] 08-20-2022 15:45-0500 Body mass index (BMI) [Ratio] 28.2 kg/m2 Dr. Fabiola Bearden Work Phone: [facility] 08-20-2022 15:45-0500 Body weight 72.[address] Fabiola Bearden Work Phone: [facility] 08-20-2022 15:45-0500 Diastolic blood pressure 64 mm[Hg] Dr. Fabiola Bearden Work Phone: [facility] 08-20-2022 15:45-0500 Systolic blood pressure 96 mm[Hg] Dr. Fabiola Bearden Work Phone: [facility] 08-16-2022 11:59-0500 Body mass index (BMI) [Ratio] 27.4 kg/m2 Dr. Fabiola Bearden Work Phone: [facility] 08-16-2022 11:59-0500 Body weight 70.[address] Fabiola Bearden Work Phone: [facility] 08-16-2022 11:59-0500 Diastolic blood pressure 74 mm[Hg] Dr. Fabiola Bearden Work Phone: [facility] 08-16-2022 11:59-0500 Systolic blood pressure 130 mm[Hg] Dr. Fabiola Bearden Work Phone: [facility] 08-12-2022 19:20-0500 Diastolic blood pressure 51 mm[Hg] Dr. Fabiola Bearden Work Phone: [facility] 08-12-2022 19:20-0500 Heart rate 106 /min Dr. Fabiola Bearden Work Phone: [facility] 08-12-2022 19:20-0500 SaO2% (BldA) [Mass fraction] 100 % Dr. Fabiola Bearden Work Phone: [facility] 08-12-2022 19:20-0500 Systolic blood pressure 92 mm[Hg] Dr. Fabiola Bearden Work Phone: [facility] 08-12-2022 18:52-0500 Respiratory rate 18 /min Dr. Fabiola Bearden Work Phone: [facility] 08-12-2022 18:17-0500 Body height 160.[address] Fabiola Bearden Work Phone: [facility] 08-12-2022 18:17-0500 Body mass index (BMI) [Ratio] 28 kg/m2 Dr. Fabiola Bearden Work Phone: [facility] 08-12-2022 18:17-0500 Body temperature 96.8 [degF] Dr. Fabiola Bearden Work Phone: [facility] 08-12-2022 18:17-0500 Body weight 71.[address] Fabiola Bearden Work Phone: [facility] 08-12-2022 17:52-0500 Body temperature 98.91 [degF] Andreia Niño TIEDOWN OPERATOR.[employer] Work Phone: [facility] 08-12-2022 17:52-0500 Body weight 69.49 kg Andreia Green-Alan TIEDOWN OPERATOR.[employer] Work Phone: [facility] 08-12-2022 17:52-0500 Diastolic blood pressure 72 mm[Hg] Andreia Niño TIEDOWN OPERATOR.[employer] Work Phone: [facility] 08-12-2022 17:52-0500 Heart rate 134 /min Andreia Praisler-Wood TIEDOWN OPERATOR.[employer] Work Phone: [facility] 08-12-2022 17:52-0500 Respiratory rate 18 /min Andreia Praisler-Wood TIEDOWN OPERATOR.[employer] Work Phone: [facility] 08-12-2022 17:52-0500 SaO2% (BldA) [Mass fraction] 99 % Andreia Praisler-Wood TIEDOWN OPERATOR.[employer] Work Phone: [facility] 08-12-2022 17:52-0500 Systolic blood pressure 136 mm[Hg] Andreia Praisler-Wood TIEDOWN OPERATOR.[employer] Work Phone: [facility] 08-10-2022 19:26-0500 Body temperature 99.2 [degF] Dr. Fabiola Bearden Work Phone: [facility] 08-10-2022 19:26-0500 Diastolic blood pressure 65 mm[Hg] Dr. Fabiola Bearden Work Phone: [facility] 08-10-2022 19:26-0500 Heart rate 76 /min Dr. Fabiola Bearden Work Phone: [facility] 08-10-2022 19:26-0500 SaO2% (BldA) [Mass fraction] 99 % Dr. Fabiola Bearden Work Phone: [facility] 08-10-2022 19:26-0500 Systolic blood pressure 103 mm[Hg] Dr. Fabiola Bearden Work Phone: [facility] 08-10-2022 16:58-0500 Body height 160.[address] Fabiola Bearden Work Phone: [facility] 08-10-2022 16:58-0500 Body mass index (BMI) [Ratio] 27.7 kg/m2 Dr. Fabiola Bearden Work Phone: [facility] 08-10-2022 16:58-0500 Body weight 71.[address] Fabiola Bearden Work Phone: [facility] 08-04-2022 12:28-0500 Body temperature 97.5 [degF] Chelle Ball TIEDOWN OPERATOR.[employer] Work Phone: [facility] 08-04-2022 12:28-0500 Body weight 71.22 kg Chelle Ball TIEDOWN OPERATOR.[employer] Work Phone: [facility] 08-04-2022 12:28-0500 Diastolic blood pressure 74 mm[Hg] Chelle Ball TIEDOWN OPERATOR.[employer] Work Phone: [facility] 08-04-2022 12:28-0500 Heart rate 84 /min Chelle Ball TIEDOWN OPERATOR.[employer] Work Phone: [facility] 08-04-2022 12:28-0500 SaO2% (BldA) [Mass fraction] 98 % Chelle Ball TIEDOWN OPERATOR.[employer] Work Phone: [facility] 08-04-2022 12:28-0500 Systolic blood pressure 125 mm[Hg] Chelle Ball TIEDOWN OPERATOR.[employer] Work Phone: [facility] 07-13-2022 16:07-0500 Body height 162.[address] Fabiola Bearden Work Phone: [facility] 07-13-2022 16:07-0500 Body mass index (BMI) [Ratio] 25.7 kg/m2 Dr. Fabiola Bearden Work Phone: [facility] 07-13-2022 16:07-0500 Body weight [address] Fabiola Bearden Work Phone: [facility] 07-13-2022 15:56-0500 Body temperature 97.8 [degF] Dr. Fabiola Bearden Work Phone: [facility] 07-13-2022 15:56-0500 Diastolic blood pressure 57 mm[Hg] Dr. Fabiola Bearden Work Phone: [facility] 07-13-2022 15:56-0500 Heart rate 93 /min Dr. Fabiola Bearden Work Phone: [facility] 07-13-2022 15:56-0500 Systolic blood pressure 112 mm[Hg] Dr. Fabiola Bearden Work Phone: [facility] 07-08-2022 11:10-0500 Body mass index (BMI) [Ratio] 25.6 kg/m2 Dr. Fabiola Bearden Work Phone: [facility] 07-08-2022 11:10-0500 Body weight 67.[address] Fabiola Bearden Work Phone: [facility] 07-08-2022 11:10-0500 Diastolic blood pressure 70 mm[Hg] Dr. Fabiola Bearden Work Phone: [facility] 07-08-2022 11:10-0500 Systolic blood pressure 113 mm[Hg] Dr. Fabiola Bearden Work Phone: [facility] 07-02-2022 21:55-0500 Body height 162.[address] Fabiola Bearden Work Phone: [facility] Work Phone: 07-02-2022 21:55-0500 Body mass index (BMI) [Ratio] 24 kg/m2 Dr. Fabiola Bearden Work Phone: [facility] 07-02-2022 21:55-0500 Body weight 63.[address] Fabiola Bearden Work Phone: [facility] 07-02-2022 21:54-0500 Body temperature 97.5 [degF] Dr. Fabiola Bearden Work Phone: [facility] 07-02-2022 21:54-0500 Diastolic blood pressure 68 mm[Hg] Dr. Fabiola Bearden Work Phone: [facility] 07-02-2022 21:54-0500 Heart rate 96 /min Dr. Fabiola Bearden Work Phone: [facility] 07-02-2022 21:54-0500 SaO2% (BldA) [Mass fraction] 98 % Dr. Fabiola Bearden Work Phone: [facility] 07-02-2022 21:54-0500 Systolic blood pressure 120 mm[Hg] Dr. Fabiola Bearden Work Phone: [facility] 06-10-2022 18:03-0500 Body temperature 97.7 [degF] Darryljose Cejatraceycam PA-C Work Phone: [facility] 06-10-2022 18:03-0500 Body weight 65.05 kg Darryljose Alejo PA-C Work Phone: [facility] 06-10-2022 18:03-0500 Heart rate 97 /min Darryljose Alejo PA-C Work Phone: [facility] 06-10-2022 18:03-0500 SaO2% (BldA) [Mass fraction] 98 % Darryljsoe Cejatraceycam PA-C Work Phone: [facility] 06-09-2022 14:07-0500 Body mass index (BMI) [Ratio] 24.1 kg/m2 Dr. Fabiola Bearden Work Phone: [facility] 06-09-2022 14:07-0500 Body weight 63.[address] Fabiola Bearden Work Phone: [facility] 06-09-2022 14:07-0500 Diastolic blood pressure 53 mm[Hg] Dr. Fabiola Bearden Work Phone: [facility] 06-09-2022 14:07-0500 Systolic blood pressure 97 mm[Hg] Dr. Fabiola Bearden Work Phone: [facility] 05-14-2022 15:44-0500 Body mass index (BMI) [Ratio] 23 kg/m2 Dr. Fabiola Bearden Work Phone: [facility] 05-14-2022 15:44-0500 Body weight 60.[address] Fabiola Bearden Work Phone: [facility] 05-14-2022 15:44-0500 Diastolic blood pressure 68 mm[Hg] Dr. Fabiola Bearden Work Phone: [facility] 05-14-2022 15:44-0500 Systolic blood pressure 112 mm[Hg] Dr. Fabiola Bearden Work Phone: [facility] 04-16-2022 11:55-0400 Body mass index (BMI) [Ratio] 22.1 kg/m2 Dr. Fabiola Bearden Work Phone: [facility] 04-16-2022 11:55-0400 Body weight 58.[address] Fabiola Bearden Work Phone: [facility] 04-16-2022 11:55-0400 Diastolic blood pressure 67 mm[Hg] Dr. Fabiola Bearden Work Phone: [facility] 04-16-2022 11:55-0400 Systolic blood pressure 97 mm[Hg] Dr. Fabiola Bearden Work Phone: [facility] 03-23-2022 10:19-0400 Body height 162.[address] Fabiola Bearden Work Phone: [facility] Work Phone: 03-23-2022 10:18-0400 Body mass index (BMI) [Ratio] 22.3 kg/m2 Dr. Fabiola Bearden Work Phone: [facility] Work Phone: 03-23-2022 10:18-0400 Body weight 59.[address] Fabiola Bearden Work Phone: [facility] Work Phone: 03-23-2022 10:18-0400 Diastolic blood pressure 77 mm[Hg] Dr. Fabiola Bearden Work Phone: [facility] Work Phone: 03-23-2022 10:18-0400 Systolic blood pressure 123 mm[Hg] Dr. Fabiola Bearden Work Phone: [facility] Work Phone: 02-09-2022 18:50-0400 Body temperature 97.81 [degF] Cj Rasmussen TIEDOWN OPERATOR.[employer] Work Phone: [facility] 02-09-2022 18:50-0400 Body weight 59.24 kg Cj Rasmussen TIEDOWN OPERATOR.[employer] Work Phone: [facility] 02-09-2022 18:50-0400 Diastolic blood pressure 70 mm[Hg] Cj Rasmussen TIEDOWN OPERATOR.[employer] Work Phone: [facility] 02-09-2022 18:50-0400 Heart rate 87 /min Cj Rasmussen TIEDOWN OPERATOR.[employer] Work Phone: [facility] 02-09-2022 18:50-0400 Respiratory rate 18 /min Cj Rasmussen TIEDOWN OPERATOR.[employer] Work Phone: [facility] 02-09-2022 18:50-0400 SaO2% (BldA) [Mass fraction] 99 % Cj Rasmussen TIEDOWN OPERATOR.[employer] Work Phone: [facility] 02-09-2022 18:50-0400 Systolic blood pressure 122 mm[Hg] Cj Rasmussen TIEDOWN OPERATOR.[employer] Work Phone: [facility] 01-31-2017 10:140400 BMI (Body Mass Index) 20.29 kg/m2 Sandy Domingo NP [facility] 01-31-2017 10:14 Body Temperature 98.5 [degF] Sandy Domingo FINANCE EXECUTIVE [facility] 01-31-2017 10:140400 Body Temperature 98.49 [degF] Sandy Domingo FINANCE EXECUTIVE [facility] 01-31-2017 10:14-0400 BP Diastolic 65 mm[Hg] Sandy Domingo NP [facility] 01-31-2017 10:14-0400 BP Systolic 102 mm[Hg] Sandy Domingo NP [facility] 01-31-2017 10:14-0400 Height 162.56 cm Sandy Domingo NP [facility] 01-31-2017 10:14-0400 Pulse (Heart Rate) 67 /min Sandy Domingo FINANCE EXECUTIVE [facility] 01-31-2017 10: Respiratory Rate 16 /min Sandy Domingo FINANCE EXECUTIVE [facility] 01-31-2017 10: Weight 53.62 kg Sandy Chayo FINANCE EXECUTIVE [facility] 01-31-2017 10: Weight 53.61 kg Sandy Arguetatings FINANCE EXECUTIVE [facility] Encounters Encounter Date Encounter Type Care Provider Facility Start: 12-26-2024 End: 12-26-[address] Fabiola Bearden DO Work Phone: -Laboratory Specimen Start: 12-26-2024 End: 12-26-[address] Ramandeep Ferguson DO -Laboratory Specimen Work Phone: Start: 12-26-2024 End: 12-26-[address] [facility] Work Phone: Start: 12-26-2024 End: 12-26-[address] Fabiola Bearden DO Work Phone: [facility] [facility] Work Phone: Start: 12-26-2024 End: 12-26-2024 ambulatory Ramandeep Ferguson Facility:[facility] Start: 11-28-2024 End: 11-28-[address] [facility] Work Phone: Start: 11-28-2024 End: 11-28-[address] Fabiola Bearden DO Work Phone: [facility] Work Phone: Start: 11-21-2024 ambulatory Ramandeep Ding cility:[facility] Start: 11-16-2024 Non-patient / Non-visit Dr. Luann Olsen MD -[facility] Start: 11-15-2024 Non-patient / Non-visit Dr. Luann Olsen MD -[facility] Start: 11-14-2024 Non-patient / Non-visit Dr. Genaro Ferguson DO -[facility] Start: 11-14-2024 ambulatory Fabiola Bearden Facility :[facility] Start: 11-14-2024 End: 11-16-2024 Evaluation and management of inpatient Dr. Ramandeep Ferguson DO [place] Work Phone: Start: 11-13-2024 End: 11-13-[address] Fabiola Bearden DO Work Phone: [facility] Work Phone: Start: 11-13-2024 End: 11-13-[address] Devora Olsen MD -Laboratory Specimen Work Phone: Start: 11-13-2024 End: 11-13-[address] Devora Olsen MD -[facility] Work Phone: Start: 11-13-2024 End: 11-13-[address] Fabiola Bearden DO Work Phone: [facility] Work Phone: Start: 11-13-2024 End: 11-13-2024 ambulatory Devora Olsen Facility:[facility] Start: 11-08-2024 End: 11-08-2024 ambulatory ALFREDA DAVID Facility:[facility] Start: 11-08-2024 End: 11-08-2024 Patient encounter procedure Alfreda David PA-C Work Phone: [facility] Comment on above: Acute otitis media, left (Primary Dx); Left ear pain; Nasal congestion Start: 11-08-2024 ambulatory Devora johnston:[facility] Start: 11-08-2024 Non-patient / Non-visit Dr. Luann Olsen MD -[facility] Start: 11-07-2024 End: 11-08-[address] Fabiola Bearden DO Work Phone: [facility] Work Phone: Start: 11-07-2024 End: 11-08-[address] Devora Olsen MD -[facility] Work Phone: Start: 11-05-2024 Encounter for genera l adult medical examination without abnormal findings Devora Olsen [facility] Start: 11-05-2024 End: 11-05-2024 ambulatory JAYA Mathews [facility] Start: 11-01-2024 ambulatory Devora Chen lity:[facility] Start: 11-01-2024 Non-patient / Non-visit Dr. Luann Olsen MD -[facility] Start: 11-01-2024 End: 11-01-2024 ambulatory Devora Olsen Facility:[facility] Start: 11-01-2024 End: 11-01-[address] Devora Olsen MD -[facility] Work Phone: Start: 10-29-2024 End: 10-29-[address] Ramandeep Ferguson DO -[facility] Work Phone: Start: 10-29-2024 End: 10-29-2024 ambulatory Ramandeep Ferguson Facility:[facility] Start: 10-25-2024 Non-patient / Non-visit Dr. Luann Olsen MD -[facility] Start: 10-25-2024 End: 10-25-2024 ambulatory Devora Olsen Facility:[facility] Start: 10-25-2024 End: 10-25-[address] [facility] Work [facility]: Start: 10-17-2024 ambulatory Dveora Chen lity:[facility] Start: 10-17-2024 Non-patient / Non-visit Dr. Luann Olsen MD -[facility] Start: 10-17-2024 End: 10-17-[address] Devora Olsen MD -[facility] Work Phone: Start: 10-17-2024 End: 10-17-2024 ambulatory Devora Olsen Facility:[facility] Start: 10-09-2024 End: 10-09-[address] Fabiola Bearden DO Work Phone: [facility] Work Phone: Start: 10-09-2024 End: 10-09-[address] Devora Olsen MD -[facility] Work Phone: Start: 10-08-2024 End: 10-08-2024 ambulatory [facility] Start: 10-02-2024 End: 10-02-[address] Ramandeep Ferguson DO -[facility] Work Phone: Start: 10-02-2024 End: 10-02-2024 ambulatory Ramandeep Ferguson Facility:[facility] Start: 09-11-2024 End: 09-11-[address] Fabiola Bearden DO Work Phone: [facility] Work Phone: Start: 09-11-2024 End: 09-11-[address] Devora Olsen MD -Laboratory Work Phone: Start: 09-10-2024 End: 09-11-2024 ambulatory [facility] Start: 09-05-2024 End: 09-05-[address] Fabiola Bearden DO Work Phone: [facility] Work Phone: Start: 09-05-2024 End: 09-05-[address] Ramandeep Ferguson DO -Lab, [facility] Start: 09-05-2024 End: 09-05-[address] Devora Olsen MD -[facility] Work Phone: Start: 09-05-2024 End: 09-05-2024 ambulatory Devora Olsen Facility:[facility] Start: 09-05-2024 End: 09-05-2024 ambulatory Ramandeep Ferguson Facility:[facility] Start: 08-14-2024 End: 08-14-[address] Devora Olsen MD -[facility] Work Phone: Start: 08-14-2024 End: 08-14-2024 ambulatory Devora Olsen Facility:[facility] Start: 08-09-2024 End: 08-09-2024 [facility] Start: 08-09-2024 End: 08-09-2024 Patient encounter procedure Alfreda David PA-C Work Phone: [facility] Comment on above: Viral URI (Primary D x); Acute cough; Sore throat; Exposure to influenza Start: 07-17-2024 End: 07-17-2024 ambulatory [facility] Start: 07-09-2024 End: 07-09-[address] Ramandeep Ferguson DO -[facility] Work Phone: Start: 07-09-2024 End: 07-09-2024 ambulatory Ramandeep Ferguson Facility:[facility] Start: 06-07-2024 End: 06-07-[address] Ramandeep Ferguson DO -[facility] Work Phone: Start: 06-07-2024 End: 06-07-2024 ambulatory Ramandeep Ferguson Facility:[facility] Start: 06-06-2024 End: 06-06-2024 ambulatory [facility] Start: 05-22-2024 End: 05-22-2024 Patient encounter procedure Jaya Leonard CNM -Lab, [facility] Start: 05-22-2024 End: 05-22-2024 ambulatory [facility] Start: 05-22-2024 End: 05-22-2024 ambulatory Jaya Leonard Facility:[facility] Start: 05-10-2024 End: 05-10-2024 ambulatory Jaya Leonard Facility:[facility] Start: 05-10-2024 End: 05-10-2024 ambulatory Jaya Leonard Facility:[facility] Start: 05-08-2024 End: 05-09-2024 Emergency department patient visit FABIOLA BEARDEN Facility:[facility] Start: 05-01-2024 ambulatory Diana Zuniga Facility :[facility] Start: 12-02-2023 End: 12-06-2023 ambulatory ADRIENNEJULI JENY SONIN-[employer] Facility:[facility] Start: 11-21-2023 End: 11-21-2023 Emergency department patient visit FABIOLA BEARDEN Facility:[facility] Start: 12-22-2022 End: 12-22-2022 Patient encounter procedure Juliet Ponce APRN.[employer] Work Phone: [facility] Comment on above: Pain, dental (Primar y Dx) Start: 10-17-2022 Non-patient / Non-visit Dr. Betzaida Bearden Work Phone: [facility] Start: 10-16-2022 Non-patient / Non-visit Dr. Betzaida Bearden Work Phone: [facility] Start: 10-16-2022 End: 10-17-2022 Evaluation and management of inpatient Dr. Fabiola Bearden Work Phone: [facility] Start: 10-15-2022 End: 10-15-[address] Fabiola Bearden Work Phone: [facility] Start: 10-08-2022 End: 10-08-[address] Fabiola Bearden Work Phone: [facility] Start: 10-01-2022 End: 10-01-[address] Fabiola Bearden Work Phone: [facility] Work Phone: Start: 10-01-2022 End: 10-01-[address] Fabiola Bearden Work Phone: [facility]-Laboratory, Specimen Start: 10-01-2022 End: 10-01-[address] Fabiola Bearden Work Phone: [facility] Start: 09-27-2022 End: 09-27-[address] Fabiola Bearden Work Phone: [facility] Work Phone: Start: 09-27-2022 End: 09-27-[address] Fabiola Bearden Work Phone: [facility] Start: 09-17-2022 End: 09-17-[address] Fabiola Bearden Work Phone: [facility] Start: 09-01-2022 Non-patient / Non-visit Dr. Betzaida Bearden Work Phone: [facility] Start: 09-01-2022 End: 09-01-[address] Fabiola Bearden Work Phone: [facility] Work Phone: Start: 09-01-2022 End: 09-01-[address] Fab[facility] Bearden [facility] Phone[facility] Start: 08-31-2022 End: 08-31-[address] Fabiola Bearden Work Phone: [facility] Start: 08-30-2022 End: 08-30-[address] Fabiola Bearden Work Phone: [facility] Work Phone: Start: 08-30-2022 End: 08-30-[address] Fabiola Bearden Work Phone: [facility] Start: 08-20-2022 End: 08-20-[address] Fabiola Bearden Work Phone: [facility] Start: 08-16-2022 End: 08-16-[address] Fabiola Bearden Work Phone: [facility] Work Phone: Start: 08-16-2022 End: 08-16-[address] Fabiola Bearden Work Phone: [facility] Start: 08-12-2022 End: 08-12-2022 Emergency department patient visit Dr. Fabiola Bearden Work Phone: [facility]-Emergency Department Start: 08-12-2022 End: 08-12-2022 Patient encounter procedure Andreia Niño APRN.AREA RELIEF PILOT Work Phone: [facility] Comment on above: Dehydration during p regnancy (Primary Dx); Tachycardia Start: 08-10-2022 Non-patient / Non-visit Dr. Betzaida Bearden Work Phone: [facility] Start: 08-10-2022 End: 08-10-[address] Fabiola Bearden Work Phone: [facility] Work Phone: Start: 08-10-2022 End: 08-10-[address] Fabiola Bearden Work Phone: [facility], Outpatients Start: 08-04-2022 End: 08-04-2022 Office outpatient visit 10 minutes Chelle Guillaume APRN.AREA RELIEF PILOT Work Phone: [facility] Comment on above: Migraine with aura, not intractable, without status migrainosus (Primary Dx); Flu-like symptoms Start: 07-13-2022 Non-patient / Non-visit Dr. Betzaida Bearden Work Phone: [facility] Start: 07-13-2022 End: 07-13-[address] Fabiola Bearden Work Phone: [facility] Work Phone: Start: 07-13-2022 End: 07-13-[address] [facility] Bearden [facility] Start: 07-12-2022 End: 07-12-[address] Fabiola Bearden Work Phone: [facility] Work Phone: Start: 07-12-2022 End: 07-12-[address] Fabiola Bearden Work Phone: [facility] Start: 07-08-2022 End: 07-08-[address] Fabiola Bearden Work Phone: [facility] Work Phone: Start: 07-08-2022 End: 07-08-[address] Fabiola Bearden Work Phone: [facility]-Laboratory, Specimen Start: 07-08-2022 End: 07-08-[address] Fabiola Bearden Work Phone: [facility] Start: 07-02-2022 Non-patient / Non-visit Dr. Betzaida Bearden Work Phone: [facility] Start: 07-02-2022 End: 07-02-[address] Fabiola Bearden Work Phone: [facility] Work Phone: Start: 07-02-2022 End: 07-02-[address] Fabiola Bearden Work Phone: [facility], Outpatients Start: 06-11-2022 Telephone encounter Alfreda hills PA-C Work Phone: [facility] Comment on above: Results Start: 06-10-2022 End: 06-10-2022 Patient encounter procedure Darryl Alejo PA-C Work Phone: [facility] Comment on above: Low grade fever (Enriqueta amparo Dx); Nausea; Headache, unspecified headache type Start: 06-09-2022 End: 06-09-[address] Fabiola Bearden Work Phone: [facility] Start: 05-14-2022 End: 05-14-[address] Fabiola Bearden Work Phone: [facility] Start: 04-16-2022 End: 04-16-[address] Fabiola Bearden Work Phone: [facility] Start: 2022 End: [address] Fabiola Bearden Work Phone: [facility] Work Phone: Start: 2022 End: [address] Fabiola Bearden Work Phone: [facility]-Laboratory, [facility] Pavilion Start: 03-23-2022 End: 03-23-[address] Fabiola Bearden Work Phone: [facility] Work Phone: Start: 03-23-2022 End: 03-23-[address] Fab[facility] Bearden [facility] Start: 03-23-2022 End: 03-23-[address] Fabiola Bearden Work Phone: [facility] Start: 02-09-2022 End: 02-09-2022 Patient encounter procedure Cj Rasmussen APRN.CNP Work Phone: [facility] Comment on above: URI, acute (Primary Dx) Start: 08-11-2021 End: 08-11-2021 Patient encounter procedure CHERYL LORENZO TIEDOWN OPERATOR-AREA RELIEF PILOT [facility] Procedures Date Procedure Procedure Detail Performing Clinician Start: 12-26-2024 Liquid based cervica l cytology screening Dr. Fabiola Bearden DO Work Phone: Comment on above: UNSATISFACTORY FOR E VALUATION. This liquid based Th inPrep(R) pap test was screened withthe use of an image guided system. The HPV DNA reflex c riteria were not met with this specimenresult therefore, no HPV testing was performed.Performed at: [address] [id number] Director: Steffanie Clarke MD, Phone: [phone] Start: 11-14-2024 Serologic test for syphilis Dr. Fabiola Bearden DO Work Phone: Start: 11-13-2024 Beta-hemolytic Streptococcus culture Dr. Fabiola Bearden DO Work Phone: Start: 11-01-[address] Carrillo Bearden DO Work Phone: Start: 11-01-2024 Urnls dip stick/tabl et reagent auto microscopy Dr. Fabiola Bearden DO Work Phone: Start: 10-25-[address] Carrillo Bearden DO Work Phone: Start: 10-25-2024 Urnls dip stick/tabl et reagent auto microscopy Dr. Fabiola Bearden DO Work Phone: Start: 10-09-2024 Measurement of pH in vaginal fluid specimen using nitrazine yellow for detection of rupture of amniotic membrane Dr. Fabiola Bearden DO Work Phone: Comment on above: Amniotic fluid not p resent indicates No Rupture of FetalMembranes at time of specimen collection. Start: 09-05-2024 Serologic test for syphilis Dr. Fabiola Bearden DO Work Phone: Start: 11-05-2024 Antibody screen FABIOLA BEARDEN Comment on above: Order Comment: Speci men Type: BLOOD SPECIMEN Ordering Facility: [facility] Address: [facility] [address] Performed By: #### T SPN #### [facility] [id number] [address] [place] [address] [place] Start: 09-27-2022 Ultrasound scan for growth Dr. Fabiola Bearden Work Phone: Start: 09-01-2022 Ultrasonography for biophysical profile without non-stress testing Dr. Fabiola Bearden Work Phone: Start: 08-30-2022 Ultrasound scan for growth Dr. Fabiola Bearden Work Phone: Start: 07-12-2022 Ultrasonography for antepartum monitoring of fetus Dr. Fabiola Bearden Work Phone: Start: 07-04-2018 Breast structure (anne dy structure) CHERYL LORENZO TIEDOWN OPERATOR-AREA RELIEF PILOT Start: 02-01-2017 End: 07-14-2017 *GC/Chlamydia Sandy S Chayo FINANCE EXECUTIVE Work Phone: Start: 01-31-2017 End: 02-02-2017 *GC/Chlamydia Sandy S Kempton FINANCE EXECUTIVE Work Phone: Start: 01-31-2017 End: 01-31-2017 Urine test visual color cmprsn meths Sandy S Kempton FINANCE EXECUTIVE Work Phone: Start: 01-31-2017 End: 01-31-2017 Urine, test (choriogonadotropin presence) Sandy S Chayo FINANCE EXECUTIVE Work Phone: Start: 01-31-2017 Venereal disease screening Std maria ee yung Domingo FINANCE EXECUTIVE Group B Streptococcu s Culture Dr. Fabiola Bearden Work Phone: H/O: section Status pos t section Dr. Fabiola Bearden DO Work Phone: Comment on above: JV- darya and brenna a. (Jennifer breech) H/O: section Status pos t section Dr. Ramandeep Ferguson DO H/O: section Status pos t section Dr. Ramandeep Ferguson DO Urine culture Dr. Fabiola martines Work Phone: Urine culture Dr. Fabiola martines Work Phone: Plan of Treatment Date Care Activity Detail Author Start: 2073 RSV Vaccine (1 - 1-d ose 75+ series) RSV Vaccine (1 - 1-dose 75+ series) [facility] Start: 12-20-2029 Urine microalbumin profile DTaP,Tdap,Td Vaccine (3 - Td or Tdap) [facility] Start: 03-04-2025 Influenza vaccination Influenz a Vaccine (Season Ended) [facility] Start: 11-16-2024 Patient discharge [facility] Start: 11-16-2024 Application of abdom inal corset [facility] Start: 11-15-2024 End: 11-15-2024 [facility] Start: 11-15-2024 End: 11-15-2024 Notification of physician [facility] Start: 11-15-2024 Administration of medication [facility] Start: 11-15-2024 Ambulation therapy management [facility] Start: 11-15-2024 Application of device [facility] Start: 11-15-2024 Application of intermittent pneumatic compression device [facility] Start: 11-15-2024 Assessment of risk o f venous thromboembolism [facility] Start: 11-15-2024 Catheterization of vein [facility] Start: 11-15-2024 Deep breathing and coughing exercises [facility] Start: 11-15-2024 Exercises [facility] Start: 11-15-2024 Measuring intake and output [facility] Start: 11-15-2024 Procedure discontinued [facility] Start: 11-15-2024 Provision of activit y privileges [facility] Start: 11-15-2024 Skin care [facility] Start: 11-15-2024 Vital signs measurements [facility] Start: 11-15-2024 Wound care [facility] Start: 11-15-2024 End: 11-15-2024 [facility] Start: 11-15-2024 Application of abdom inal corset [facility] Start: 11-15-2024 Consultation [facility] Start: 11-14-2024 Admission procedure [facility] Start: 11-13-2024 Cul prsmptv pthgnc organism scrn w/colony estimj CULTURE SCREEN ONLY [facility] Start: 11-08-2024 Patient discharge [facility] Start: 11-07-2024 Nonstress test [facility] Start: 11-07-2024 Obstetric monitoring [facility] Start: 11-07-2024 Vital signs measurements [facility] Start: 11-07-2024 [facility] Start: 11-01-2024 Nonstress test [facility] Start: 11-01-2024 Obstetric monitoring [facility] Start: 11-01-2024 Vital signs measurements [facility] Start: 11-01-2024 [facility] Start: 11-01-2024 Patient discharge [facility] Start: 10-25-2024 Nonstress test [facility] Start: 10-25-2024 Obstetric monitoring [facility] Start: 10-25-2024 Vital signs measurements [facility] Start: 10-25-2024 [facility] Start: 10-25-2024 Patient discharge [facility] Start: 10-09-2024 Nonstress test [facility] Start: 10-09-2024 Obstetric monitoring [facility] Start: 10-09-2024 Vital signs measurements [facility] Start: 10-09-2024 [facility] Start: 10-09-2024 Patient discharge [facility] Start: 03-04-2024 Covid-19 Vaccine ( season) Covid-19 Vaccine ( season) [facility] Start: 03-04-2024 Influenza vaccination Influenza Vacc ine (#1) [facility] Start: 03-04-2023 Influenza vaccination INFLUENZ A (Season Ended) [facility] Start: 10-17-2022 Patient discharge [facility] Start: 10-16-2022 Administration of medication [facility] Start: 04-15-2023 Application of ice collar, cap or bag [facility] Start: 10-16-2022 Catheterization of vein [facility] Start: 10-16-2022 Introduction of urin tom catheter [facility] Start: 10-16-2022 Measuring intake and output [facility] Start: 10-16-2022 Notification of physician [facility] Start: 10-16-2022 Procedure discontinued [facility] Start: 10-16-2022 Provision of activit y privileges [facility] Start: 10-16-2022 Vital signs measurements [facility] Start: 10-16-2022 [facility] Start: 10-16-2022 Admission procedure [facility] Start: 10-16-2022 Consultation [facility] Start: 10-01-2022 Streptococcus agalac tiae [Presence] in Unspecified specimen by Organism specific culture [facility] Start: 09-01-2022 Biophysical pr ofile panel US [facility] Start: 09-01-2022 Ultrasonography for biophysical profile without non-stress testing Biophysical Prof W/O Non Stres [facility] Start: 09-01-2022 Nonstress test [facility] Start: 09-01-2022 Obstetric monitoring [facility] Start: 09-01-2022 Vital signs measurements [facility] Start: 09-01-2022 [facility] Start: 09-01-2022 Iv infusion hydratio n each additional hour HYDRATE IV INFUSION ADD-ON [facility] Start: 09-01-2022 Ther proph/dx njx iv push single/1st sbst/drug THER/PROPH/DIAG INJ IV PUSH [facility] Start: 09-01-2022 Patient discharge [facility] Start: 08-12-2022 [facility] Start: 08-10-2022 Nonstress test [facility] Start: 08-10-2022 Obstetric monitoring [facility] Start: 08-10-2022 Vital signs measurements [facility] Start: 08-10-2022 [facility] Start: 08-10-2022 Iv infusion hydratio n each additional hour HYDRATE IV INFUSION ADD-ON [facility] Start: 08-10-2022 Iv infusion hydratio n initial 31 min-1 hour HYDRATION IV INFUSION INIT [facility] Start: 07-13-2022 [facility] Work Phone: Start: 07-13-2022 Patient discharge [facility] Start: 07-02-2022 Nonstress test [facility] Start: 07-02-2022 Obstetric monitoring [facility] Start: 07-02-2022 Vital signs measurements [facility] Start: 07-02-2022 [facility] Start: 07-02-2022 Patient discharge [facility] Start: 03-04-2022 Influenza vaccination INFLUENZA (#1) [facility] Start: 2019 PAP TESTING PAP TESTING [facility] Start: 2019 Screening for malign ant neoplasm of cervix Cervical Cancer Screening [facility] Start: 2017 Hepatitis B Vaccine (1 of 3 - 19+ 3-dose series) Hepatitis B Vaccine (1 of 3 - 19+ 3-dose series) [facility] Start: 2017 Urine microalbumin profile DTAP,TDAP,TD (1 - Tdap) [facility] Start: 02-01-2017 End: 07-14-2017 *GC/Chlamydia [facility] Start: 01-31-2017 End: 01-31-2017 Appointment Appointment [facility] Start: 01-31-2017 End: 02-02-2017 *GC/Chlamydia *GC/Chlamydia [facility] Start: 2016 CHLAMYDIA SCREENING (18-24) CHLAMYDIA SCREENING (18-24) [facility] Start: 2016 GC (GONORRHEA) SCREE YUNG (18-24) GC (GONORRHEA) SCREENING (18-24) [facility] Start: 2016 HEPATITIS C SCREENING HEPATITIS C [facility] Start: 2016 Hepatitis C screening Hepatitis C [facility] Start: 2016 HIV SCREENING HIV SCREENING [facility] Start: 2016 HIV screening HIV Screening [facility] Start: 2013 HPV Vaccine (1 - 3-d ose series) HPV Vaccine (1 - 3-dose series) [facility] Start: 2012 PEDS TO ADULT TRANSI TION ANNUAL ASSESSMENT PEDS TO ADULT TRANSITION ANNUAL ASSESSMENT [facility] Start: 2010 Adult depression screening assessment DEPRESSION SCREENING [facility] Start: 2010 PEDS TO ADULT TRANSI TION INITIAL DISCUSSION PEDS TO ADULT TRANSITION INITIAL DISCUSSION [facility] Start: 2009 HPV VACCINE (1 - 2-d ose series) HPV VACCINE (1 - 2-dose series) [facility] Start: 2008 MENINGOCOCCAL B: Con soda dialyzer based on risk (1 of 2 - Risk Bexsero 2-dose series) MENINGOCOCCAL B: Consider based on risk (1 of 2 - Risk Bexsero 2-dose series) [facility] Start: 2007 HPV VACCINE (1 - 2-d ose series) HPV VACCINE (1 - 2-dose series) [facility] Start: 1998 COVID-19 VACCINE (#1) COVID-19 VACCI NE (#1) [facility] Start: 1998 HEPATITIS B (1 of 3 - 3-dose series) HEPATITIS B (1 of 3 - 3-dose series) [facility] Bacteria identified in Urine by Culture Urine Culture [facility] Work Phone: Beta-hemolytic Streptococcus culture [facility] Bilirubin measuremen t, urine [facility] CBC W Auto Different ial panel - Blood [facility] Work Phone: CBC W Auto Different ial panel - Blood [facility] COVID & INFLUENZA A/ B & RSV PCR, ROUTINE COVID & INFLUENZA A/B & RSV PCR, ROUTINE Microbiology Routine Acute cough Sore throat Exposure to influenza Ordered: 08/09/2024 [facility] Work Phone: Comment on above: Ordered: 08/09/2024 Glucose [Mass/volume ] in Serum or Plasma --1 hour post 50 g glucose PO [facility] Work Phone: Glucose [Mass/volume ] in Serum or Plasma --1 hour post 50 g glucose PO [facility] Group B Streptococcu s Culture Group B Streptococcus Culture [facility] Hemoglobin [Presence ] in Urine [facility] Hepatitis B surface antigen measurement [facility] Work Phone: Hepatitis C antibody measurement [facility] Work Phone: HIV 1+2 Ab+HIV1 p24 Ag [Presence] in Serum or Plasma by Immunoassay [facility] Work Phone: HIV 1+2 Ab+HIV1 p24 Ag [Presence] in Serum or Plasma by Immunoassay [facility] Influenza virus A an d B RNA and SARS-CoV-2 (COVID-19) N gene panel - Respiratory specimen by JOI with probe detection COVID WITH FLUA+B, ROUTINE Microbiology Routine Low grade fever Nausea Headache, unspecified headache type Ordered: 06/10/2022 [facility] Work Phone: Comment on above: Ordered: 06/10/2022 Influenza virus A an d B RNA and SARS-CoV-2 (COVID-19) N gene panel - Respiratory specimen by JOI with probe detection COVID WITH FLUA+B, ROUTINE Microbiology Routine Migraine with aura, not intractable, without status migrainosus Ordered: 08/04/2022 [facility] Work Phone: Comment on above: Ordered: 08/04/2022 Liquid based cervica l cytology screening [facility] Measurement of keton es in urine using dipstick [facility] Patient Education [facility] Work Phone: Patient referral [facility] Work Phone: pH of Urine [facility] Rubella IgG measurement [facility] Work Phone: SARS-CoV-2 (COVID-19 ) RNA [Presence] in Respiratory specimen by JOI with probe detection 2019 CORONAVIRUS Microbiology Routine URI, acute Ordered: 02/09/2022 [facility] Work Phone: Comment on above: Ordered: 02/09/2022 Specific gravity of Urine [facility] Streptococcus agalac tiae [Presence] in Unspecified specimen by Organism specific culture [facility] Treponema sp Ab [Presence] in Serum [facility] Work Phone: Treponema sp Ab [Presence] in Serum [facility] Ultrasound scan for growth [facility] Urine dipstick for glucose [facility] Urine dipstick for leukocyte esterase [facility] Urine dipstick for nitrite [facility] Urine dipstick for protein [facility] Urine examination [facility] Urobilinogen [Presen ce] in Urine [facility] Immunizations Immunization Date Immunization Notes Care Provider Fa cility 12-21-2019 tetanus toxoid, redu anthony diphtheria toxoid, and acellular pertussis vaccine, adsorbed CHERYL LORENZO TIEDOWN OPERATOR-AREA RELIEF PILOT [facility] 07-20-2010 tetanus toxoid, redu anthony diphtheria toxoid, and acellular pertussis vaccine, adsorbed CHERYL LORENZO TIEDOWN OPERATOR-AREA RELIEF PILOT [facility] 07-20-2010 varicella virus vaccine YASMEEN HANNAH TIEDOWN OPERATOR-AREA RELIEF PILOT [facility] Payers Date Payer Category Payer Self-pay [id number] 2022 Unknown [id number] 2019 Medicaid [id number] 2018 Unknown HOSPITAL/MEDICAL GENERIC MEDICAL GENERIC [id number] 2018-Present [phone] [address] [place] [address] Indemnity [id number] 1998 Unknown [id number] [id number] 1998 Unknown [id number] 2.16.840.1.529487.3.579.2.479 1998 Unknown [id number] 2.840.1.312119.3.579.2.479 1998 Unknown [id number] 2.16840.1.346181.3.579.2.479 1998 Unknown [id number] 2.840.1.546255.3.579.2.479 1998 Unknown [id number] 2.840.1.641552.3.579.2.479 1998 Unknown [id number] 2.840.1.177271.3.579.2.479 1998 Unknown [id number] 2.840.1.093402.3.579.2.479 Unknown [id number] Unknown [facility] [id number] Unknown [id number] 2.840.1.111018.3.579.2.462 Unknown [id number] 2.840.1.541455.3.579.2.462 Unknown [id number] 2.840.1.122464.3.579.2.462 Unknown [id number] 2.840.1.791917.3.579.2.462 Unknown [id number] 2.840.1.777990.3.579.2.462 Unknown [id number] 2.840.1.077079.3.579.2.462 Unknown [id number] 2.16840.1.258850.3.579.2.462 Unknown [id number] 2.16840.1.865780.3.579.2.462 Unknown [id number] 2.16840.1.774532.3.579.2.462 Unknown [id number] 2.16.840.1.974834.3.579.2.462 Unknown [id number] 2.16.840.1.394623.3.579.2.462 Unknown [id number] 2.16.840.1.297901.3.579.2.462 Unknown [id number] 2.16.840.1.532353.3.579.2.462 Unknown [id number] 2.16.840.1.582661.3.579.2.462 Unknown [id number] 2.16.840.1.686822.3.579.2.462 Unknown [id number] 2.16.840.1.685630.3.579.2.462 Unknown [id number] 2.16.840.1.855976.3.579.2.462 Unknown [id number] 2.16840.1.119868.3.579.2.462 Unknown [id number] 2.16.840.1.984146.3.579.2.462 Unknown [id number] Unknown [id number] [id number] Unknown [id number] [id number] Unknown [id number] 2.16.840.1.459767.3.579.2.462 Unknown [id number] 2.16.840.1.285705.3.579.2.462 Unknown [id number] 2.16.840.1.661218.3.579.2.462 Unknown [id number] 2.16.840.1.251206.3.579.2.462 Unknown [id number] 2.16.840.1.222539.3.579.2.462 Unknown [id number] 2.16.840.1.679701.3.579.2.462 Unknown [id number] 2.16.840.1.925202.3.579.2.462 Unknown [id number] 2.16.840.1.704960.3.579.2.462 Unknown [id number] 2.16.840.1.182487.3.579.2.462 Unknown [id number] [id number] Unknown [id number] [id number] Social History Date Type Detail Facility Tobacco Nicotine Use: Va ping Product in Last 90 Days. Type: Electronic Cigarettes (Vaping). [facility] Start: 02-09-2022 End: 11-28-2024 Never smoked tobacco (finding) [facility] Start: 2000 Sex Assigned At Female A [facility] Start: 02-09-2022 Tobacco use and exposure Smokeless tobacco non-user [facility] Start: 02-09-2022 End: 12-22-2022 Alcohol intake Current non-drinker of alcohol (finding) [facility] Start: 2000 Sex Assigned At Not on file [facility] Start: 01-30-2022 End: 02-09-2022 Exposure to SARS-CoV-2 (event) Not sure [facility] Start: 03-23-2022 End: 10-16-2022 Tobacco smoking status NHIS Unknown if ever smoked [facility] Start: 03-24-2024 [facility] Start: 05-08-2024 Alcoholic beverage intake Current drinker of alcohol (finding) [facility] Start: 11-22-2023 End: 05-08-2024 History of Social function [facility] Start: 11-22-2023 End: 05-08-2024 Tobacco use panel [facility] PHQ2 Score [address] [facility] Start: 11-21-2023 Alcohol Comment OCCASIONAL [facility] Start: 09-18-2024 End: 10-09-2024 Sex Female (finding) [facility] Goals Date Patient Goal Desired Activity /State Functional Status Date Assessment Result Facility 06-01-2018 Are you deaf, or do you have serious difficulty hearing No 06/01/2018 2:23 PM Rosa Zimmerman RN No [facility] 06-01-2018 Are you blind, or do you have serious difficulty seeing, even when wearing glasses No 06/01/2018 2:23 PM Rosa Zimmerman, PEARL No [facility] 06-01-2018 Do you have serious difficulty walking or climbing stairs No 06/01/2018 2:23 PM Rosa Zimmerman RN No [facility] 06-01-2018 Do you have difficul ty dressing or bathing No 06/01/2018 2:23 PM Rosa Zimmerman, PEARL No [facility] 06-01-2018 Because of a physica l, mental, or emotional condition, do you have difficulty doing errands alone such as visiting a physician's office or shopping No 06/01/2018 2:23 PM Rosa Zimmerman RN No [facility] Mental Status Date Assessment Result Facility 11-15-2024 Cognitive function Level Of Cons ciousness Awake;Alert [facility] Work Phone: 08-12-2022 Cognitive function Level Of Cons ciousness Awake;Alert;Appropriate;Fol lows Commands [facility] Work Phone: 06-01-2018 Because of a physica l, mental, or emotional condition, do you have serious difficulty concentrating, remembering, or making decisions No 06/01/2018 2:23 PM Rosa Zimmerman RN No [facility] Clinical Notes 07-26-2017 to 12-26-2024 Note Date & Type Note Facility 12-26-2024 Progress note [facility] 11-15-2024 Progress note Note Date/Time November 15, 2024 6:16pm [facility] Medical Records Department [address] [place] [address] Progress Note - OBGYN 11/15/24 1332 MR#: [id number] Acct: [id number] Name: DARRYL BUI Rep #:[id number] : 2000 24 From: Devora lozano MD PCP: Dr. Fabiola Bearden, DO Status:ADM IN Location: [id number] Subjective Subjective Patient doing well without complaints. Tolerating PO. Ambulating and voiding without difficulty. infant feeding well. Denies chest pain, shortness of breath,calf pain/swelling, fevers, chills, lightheadedness. Objective Data Objective Data Vital Signs: Vital Signs Temp Pulse Resp BP Pulse Ox O2 Del Method 98.0 F 59 L 17 118/90 H 96 Room Air 11/15/24 13:04 11/15/24 13:04 11/15/24 13:04 11/15/24 13:04 11/15/24 08:06 11/15/24 13:04 Oxygen Delivery Method Room Air Weight: 170 lb Body Mass Index (BMI) 30.1 Intake & Output: Intake and Output for Last 24 Hours 11/13/24 11/14/24 11/15/24 23:59 23:59 23:59 Intake Total 1056 / 1056 2306.5 / 2306.5 Output Total 1200 / 1200 Balance 1056 / 1056 1106.5 / 1106.5 Lab / Micro Data 11/15/24 06:10 Labs: Laboratory Results - last 24 hr 11/14/24 21:30: WBC 10.3, RBC 3.95 L, Hgb 10.4 L, Hct 32.1 L, MCV 81.3, MCH 26.3L, MCHC 32.4, RDW Std Deviation 46.2 H, RDW Coeff of Daryl 15.5 H, Plt Count 227, MPV 12.5 H, Immature Gran % (Auto) 1.300 H, Neut % (Auto) 83.3 H, Lymph % (Auto)9.5 L, [place] % (Auto) 5.2, Eos % (Auto) 0.1, Baso % (Auto) 0.6, Absolute Neuts (auto) 8.6 H, Absolute Lymphs (auto) 0.98, Nucleated RBC % 0.2, Syphilis Total Ab Nonreactive, Blood Type O POSITIVE, Antibody Screen NEGATIVE 11/15/24 06:10: WBC 13.0 H, RBC 3.03 L, Hgb 8.1 L, Hct 25.3 L, MCV 83.5, MCH 26.7 L, MCHC 32.0, RDW Std Deviation 47.9 H, RDW Coeff of Daryl 15.6 H, Plt Count 184, MPV 11.9 ROS Constitutional Constitutional: Reports systems reviewed and no addt'l complaints, except as documented Cardiovascular Cardiovascular: Reports systems reviewed and no addt'l complaints, except as documented Respiratory/Chest Respiratory/Chest: Reports systems reviewed and no addt'l complaints, except as documented Gastrointestinal Gastrointestinal: Reports systems reviewed and no addt'l complaints, except as documented Physical Exam Const alert, oriented x3 and no apparent distress HEENT Head and Scalp: atraumatic Resp normal respiratory effort GI soft to palpation and non-tender Inspection: incision intact, healing well and drainage (none) Bimanual Exam - Vag & Uterus: uterus non-tender Uterus Palpation: uterus fundus firm (below Umbilicus) Assessment & Plan (1) Status post section: COMMENT: JORDY lackey and jennifer. (Jennifer breech) PLAN: Plan s/p LTCS PPD # 1 1. routine post care 2. breast feeding- support given 3. rh positive 4. rubella immune 11/15/241815 <Electronically signed by Devora Olsen MD> Cosigner Signature (if applicable): CC: ~ Signed [facility] Work Phone: 1(586) 124-542505-15-2025 Progress note [facility] Medical Records Department [address] [place] [address] Progress Note - OBGYN 11/15/24 1332 MR#: [id number] Acct: [id number] Name: DARRYL BUI Rep #:[id number] : 2000 24 From: Devora lozano MD PCP: Dr. Fabiola Bearden, DO Status:ADM IN Location: [id number] Subjective Subjective Patient doing well without complaints. Tolerating PO. Ambulating and voiding without difficulty. feeding well. Denies chest pain, shortness of breath,calf pain/swelling, fevers, chills, lightheadedness. Objective Data Objective Data Vital Signs: Vital Signs Temp Pulse Resp BP Pulse Ox O2 Del Method 98.0 F 59 L 17 118/90 H 96 Room Air 11/15/24 13:04 11/15/24 13:04 11/15/24 13:04 11/15/24 13:04 11/15/24 08:06 11/15/24 13:04 Oxygen Delivery Method Room Air Weight: 170 lb Body Mass Index (BMI) 30.1 Intake & Output: Intake and Output for Last 24 Hours 11/13/24 11/14/24 11/15/24 23:59 23:59 23:59 Intake Total 1056 / 1056 2306.5 / 2306.5 Output Total 1200 / 1200 Balance 1056 / 1056 1106.5 / 1106.5 Lab / Micro Data 11/15/24 06:10 Labs: Laboratory Results - last 24 hr 11/14/24 21:30: WBC 10.3, RBC 3.95 L, Hgb 10.4 L, Hct 32.1 L, MCV 81.3, MCH 26.3L, MCHC 32.4, RDW Std Deviation 46.2 H, RDW Coeff of Daryl 15.5 H, Plt Count 227, MPV 12.5 H, Immature Gran % (Auto) 1.300 H, Neut % (Auto) 83.3 H, Lymph % (Auto)9.5 L, [place] % (Auto) 5.2, Eos % (Auto) 0.1, Baso % (Auto) 0.6, Absolute Neuts (auto) 8.6 H, Absolute Lymphs (auto) 0.98, Nucleated RBC % 0.2, Syphilis Total AbNonreactive, Blood Type O POSITIVE, Antibody Screen NEGATIVE 11/15/24 06:10: WBC 13.0 H, RBC 3.03 L, Hgb 8.1 L, Hct 25.3 L, MCV 83.5, MCH 26.7 L, MCHC 32.0, RDWStd Deviation 47.9 H, RDW Coeff of Daryl 15.6 H, Plt Count 184, MPV 11.9 ROS Constitutional Constitutional: Reports systems reviewed and no addt'l complaints, except as documented Cardiovascular Cardiovascular: Reports systems reviewed and no addt'l complaints, except as documented Respiratory/Chest Respiratory/Chest: Reports systems reviewed and no addt'l complaints, except as documented Gastrointestinal Gastrointestinal: Reports systems reviewed and no addt'l complaints, except as documented Physical Exam Const alert, oriented x3 and no apparent distress HEENT Head and Scalp: atraumatic Resp normal respiratory effort GI soft to palpation and non-tender Inspection: incision intact, healing well and drainage (none) Bimanual Exam - Vag & Uterus: uterus non-tender Uterus Palpation: uterus fundus firm (below Umbilicus) Assessment & Plan (1) Status post section: COMMENT: JV- darya and jennifer. (Jennifer breech) PLAN: Plan s/p LTCS PPD # 1 1. routine post care 2. breast feeding- support given 3. rh positive 4. rubella immune 11/15/241815 Cosigner Signature (if applicable): CC: ~ Signed [facility]05-15-2025 Discharge summary Author Ramandeep Hinds [facility] Note Date/Time November 14, 2024 11:53 pm [facility] Medical Records Department [address] [place] [address] Instructions for Home/Discharge Instructions 11/14/24 2350 MR#: [id number] Acct: [id number] Name: DARRYL BUI Rep #:[id number] : 2000 24 From: Ramandeep Ferguson DO PCP: Dr. Fabiola Bearden DO Status:ADM IN Discharge Instructions Diet Discharge Diet: No restrictions DC O2, CPAP, BIPAP needs Home O2 Discharge instructions: No Dressing / Incision Discharge Activity: May Not Drive (for 2 weeks or while taking narcotic pain medications.), May Shower and May Take a Tub Bath (in 7 days.) May resume sexual activity in: 4-6 weeks Weight Bearing Status: Full weight bearing Lifting Restrictions: 20 pounds Dressing / Incision Call your doctor if your incision/area has: Continuous Slow Oozing, Sudden Increased Bleeding, Increased Pain/ Swelling, Increased Redness and Foul Smelling Discharge Call your doctor if you observe: Fever of 101 or Higher and Using more than 1 pad per hour Suture Line Care: Avoid Pulling/Pushing and Avoid Pinching/Bending Cleanse incision/area with: Soap & Water and Keep Dressing Clean & Dry Follow Up Care Please Follow Up With: Ramandeep Ferguson DO When: Call [phone] to make an appointment for an incision check in 1-2 weeks. Test Results: Test results from this visit will be discussed in further detail at your follow- up appointment, if applicable. Discharge Plan Admission Admit Date/Time: 11/14/24 21:12 Primary Reason for Your Visit: section Attending Provider: Ramandeep Ferguson Primary Care Provider: Fabiola Bearden Discharge Orders/Prescriptions Prescriptions: New ibuprofen 800 mg tablet 800 mg PO Q8H PRN (Reason: pain) Qty: 30 0RF oxycodone-acetaminophen [Percocet] 5-325 mg tablet 1 tab PO Q4H PRN (Reason: pain) 7 Days Qty: 20 0RF Continued DHA 200 mg capsule 1 mg PO DAILY famotidine [Pepcid] 20 mg tablet 20 mg PO DAILY Qty: 30 6RF ferrous sulfate [Feosol] 325 mg (65 mg iron) tablet 325 mg PO DAILY Discontinued aspirin [Aspirin Childrens] 81 mg tablet,chewable 1 tab PO DAILY Referrals / Follow Up: Fabiola Bearden DO [Primary Care Provider] - Disposition Disposition (needs filled in before D/C Order can be placed): Home, Self Care 11/14/242352<Electronically signed by Ramandeep Ferguson DO>Ramandeep Ferguson DO CC: Dr. Fabiola Bearden DO ~ Signed [facility] Work Phone: 1([phone]) 749-959905-14-2025 Discharge summary [facility] Medical Records Department [address] [place] [address] Instructions for Home/Discharge Instructions 11/14/24 2350 MR#: [id number] Acct: [id number] Name: DARRYL BUI Rep #:[id number] : 2000 24 From: Ramandeep Ferguson DO PCP: Dr. Fabiola Bearden DO Status:ADM IN Discharge Instructions Diet Discharge Diet: No restrictions DC O2, CPAP, BIPAP needs Home O2 Discharge instructions: No Dressing / Incision Discharge Activity: May Not Drive (for 2 weeks or while taking narcotic pain medications.), May Shower and May Take a Tub Bath (in 7 days.) May resume sexual activity in: 4-6 weeks Weight Bearing Status: Full weight bearing Lifting Restrictions: 20 pounds Dressing / Incision Call your doctor if your incision/area has: Continuous Slow Oozing, Sudden Increased Bleeding, Increased Pain/ Swelling, Increased Redness and Foul Smelling Discharge Call your doctor if you observe: Fever of 101 or Higher and Using more than 1 pad per hour Suture Line Care: Avoid Pulling/Pushing and Avoid Pinching/Bending Cleanse incision/area with: Soap & Water and Keep Dressing Clean & Dry Follow Up Care Please Follow Up With: Ramandeep Ferguson DO When: Call [phone] to make an appointment for an incision check in 1-2 weeks. Test Results: Test results from this visit will be discussed in further detail at your follow- up appointment, if applicable. Discharge Plan Admission Admit Date/Time: 11/14/24 21:12 Primary Reason for Your Visit: section Attending Provider: Ramandeep Ferguson Primary Care Provider: Fabiola Bearden Discharge Orders/Prescriptions Prescriptions: New ibuprofen 800 mg tablet 800 mg PO Q8H PRN (Reason: pain) Qty: 30 0RF oxycodone-acetaminophen [Percocet] 5-325 mg tablet 1 tab PO Q4H PRN (Reason: pain) 7 Days Qty: 20 0RF Continued DHA 200 mg capsule 1 mg PO DAILY famotidine [Pepcid] 20 mg tablet 20 mg PO DAILY Qty: 30 6RF ferrous sulfate [Feosol] 325 mg (65 mg iron) tablet 325 mg PO DAILY Discontinued aspirin [Aspirin Childrens] 81 mg tablet,chewable 1 tab PO DAILY Referrals / Follow Up: Fabiola Bearden DO [Primary Care Provider] - Disposition Disposition (needs filled in before D/C Order can be placed): Home, Self Care 11/14/24 2353Jennleif Ferguson DO CC: Dr. Fabiola Bearden DO ~ Signed [facility]05-14-2025 Procedure note [facility] Medical Records Department [address] [place] [address] Operative Report 11/14/24 2343 MR#: [id number] Acct: [id number] Name: DARRYL BUI Rep #:[id number] : 2000 24 From: Ramandeep Ferguson DO PCP: Dr. Fabiola Bearden DO Status:ADM IN Location: [id number] Assessment & Plan (1) Anemia affecting : COMMENT: OTC Fe Daily (2) Abnormal glucose: COMMENT: 3 HR GTT (3) Dichorionic diamniotic twin gestation: COMMENT: growths q4 at 24 weeks. NSTs at 36weeks on L&D. nl growth. baby Bbreech. (4) Family history of hemophilia: COMMENT: maternal grandfather (5) Supervision of high-risk : COMMENT: PRR, , BERNADETTE 12/15/24, girls Darya, Jennifer PC: River & Amber, BF: Drake Maternal Data Information BERNADETTE Calculator Estimated Delivery Date Method Current WG Current Estimate 12/15/24 Ultrasound #1 35w 4d Other Estimates 12/15/24 LMP (Certain) 35w 4d # 2 Final BERNADETTE: 12/15/24 Final BERNADETTE Source: US <20 weeks Gestational age: 35 weeks 4 days Doctor Who Attended Delivery: Shikha Van Operative Report (OB) Details Procedure Type: low transverse Date of Procedure: 11/14/24 Procedure Start Time: 23:08 Procedure Stop Time: 23:39 Time of Delivery: 23:12 Pre-Operative Diagnosis: Malpresentation and Other (twin gestation, activelabor , baby b breech ) Other Pre-Operative diagnosis: none Post-Operative Diagnosis: Same as Pre-operative diagnosis Classification: MONIQUE Type of Anesthesia: Spinal Antibiotic Given: Clindamycin 600mg IV x1 and Gentamicin 1.5mg/kg IV x1 Drain: Soares to straight drain Estimated Blood Loss: 600cc Findings Description of surgery: The patient is a 24 y/o @ 35 weeks 4 days, in active labor with a twin gestation. Baby presenting breech. Spinal anesthesia was placed without difficulty. Soares catheter was placed. The patient was placed in the dorsal supine position with leftward tilt. Patient was prepped and draped in the normal sterile fashion. Pfannenstiel skin incision was made with the scalpel and carried through to the underlying layer of fascia with the scalpel. Fascia was nicked in the midline and the incision extended laterally. The rectus bellies were dissected off superiorly and inferiorly with out complication both sharply and bluntly. The peritoneum was entered digitally. The incision was stretched and alow transverse uterine incision was made with the scalpel. The 's head was delivered atraumatically followed by the anterior and posterior shoulders without complication the rest of the infant delivered. The cord was clamped and cut and the was handed off to awaiting nurse. The sencond membrane sac was opened with an jodie clamp and clear fluid returned. Theinfant's feet, then torso, and right arm delivered. The infant was rotated to deliver the left arm and when this delivere the head delivered spontaneously. The placenta was delivered with expression immediately following and was noted to be intact and have a three-vessel cord and the 2 placentas by a membrane. The ut erus was exteriorized cleared of all clots and debris, and the incision was closed in a double layer closure using #1 Vicryl and #1 Monocryl. The ovaries and fallopian tubes were noted to be within normal limits. The uterus was returned to the maternal abdomen and gutters were cleared of all clots and debris. The peritoneum was closed with 3-0 Monocryl in a running fashion. Fascia was closed with0 PDS in a running fashion. Subcutaneous tissue was copiously irrigated and the skin was closed with 3-0 Monocryl in a subcuticular fashion. Mepilex dressing was applied without complication. Patientwas taken to recovery in stable condition. It was discussed with the patient that based on the clini amanda information obtained during this encounter, combined with her history, at this time I would recommend or repeat for future deliveries if further pregnancies are desired. Surgical findings: viable twin girls darya and Jennifer Presentation: Vertex Amniotic Membrane Rupture Type: Artificial Amniotic Fluid Description: Clear Placental Delivery Description: Expressed Placenta Disposition: [facility] Specimen collected: No Cord Vessel Description: 3 Vessels Cord Entanglement: None A gender: Female (1 minute): 8 (5 minute): 9 Delayed Cord Clamping: Yes Campaign Assistant ice skater: Yes Refueling Rampman: liss Tasks completed by first officer and flight instructor: Hemostasis: Clamp, Hemostasis: Electrocautery and Retracting Additional physical therapist assistant?: No Complications Complications: No Baby B Information Amniotic Membrane Rupture Type: Artificial Presentation: Footling Breech Operative Information Mode of Delivery: Cord Vessel Description: 3 Vessels Cord Entanglement: Around neck x 1, loose Nuchal Cord Compression: With compression B gender: Female (1 minute): 5 (5 minute): 7 Delayed Cord Clamping: Yes Admit VTE Documentation VTE Present on Admission: No VTE Mechan Device Prophylaxis: SCD's VTE Pharm Prophylaxis Ordered: No Multi Select Codes Urinary/Genital Urinary/Genital CPT Codes: 05295 delivery+PP Care([facility]) 11/14/24 2350 Cosigner Signature (if applicable): CC: Dr. Ramandeep Ferguson DO; Dr. 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 Fabiola Bearden DO Status:ADM IN Location: [id number] HPI - General HPI Narrative DARRYL BUI, is a 24 y/o @35 weeks 4 days who presents to L&D with contractions q 2 minutes. On exam she is noted to be 5 cm dilated with bulging membranes, 85% effaced and -1 station. She is a twin gestation and baby B is breech. She denies loss of fluid, vaginal bleeding, or decreased movement. Maternal Data Information BERNADETTE Calculator Estimated Delivery Date Method Current WG Current Estimate 12/15/24 Ultrasound #1 35w 4d Other Estimates 12/15/24 LMP (Certain) 35w 4d # 2 PFSH PFSH Medical History Twin History of marijuana use Trauma Migraine Autoimmune disease Family history of hemophilia History of suicidal ideation Anxiety and depression Home Medications ?Medication ?Instructions ?Recorded ?Last Taken ?Type docosahexaenoic acid 200 mg 1 mg PO DAILY 05/01/2407/28 08:00 History capsule ( DHA) famotidine 20 mg tablet (Pepcid) 20 mg PO DAILY #30 ta bs 09/05/24 Unknown Rx aspirin 81 mg chewable tablet 1 tab PO DAILY 10/09/24 11/01/24 08:00 History (Aspirin Childrens) ferrous sulfate 325 mg (65 mg 325 mg PO DAILY 10/09/24 10/31/24 22:00 History iron) tablet (Feosol) Allergy/AdvReac Type Severity Reaction Status Date / Time gluten Allergy Severe Abd Verified 11/14/24 21:19 cramps/diarrhea amoxicillin Allergy Mild Rash Verified 11/14/24 21:19 penicillin G Allergy Mild Rash Verified 11/14/24 21:19 pomegranate Allergy Anaphylaxis Verified 11/14/24 21:19 Family History Mother Arthritis Fibromyalgia Father Epilepsy Surgical History Status post vaginal delivery Status post vaginal delivery H/O breast surgery Social History adopted: No household members: children number of children: 2 current occupational status: employed current occupation: [employer] current occupational exposures/hazards: No pets and animals: No history of recent travel: Yes ( - Mar 2024) out of state: Yes out of country: No sexually active: Yes Smoking Status: Never smoker alcohol intake: never substance use type: marijuana diet: gluten free well-balanced diet: daily or most days caffeine: Yes Type: coffee Number of servings: 1 eating out: rarely or never during the past year weight has: remained stable what type of physical activity do you participate in: walking frequency: 3-4 times per week duration: < 15 minutes/day 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 Date Name GA/Weeks Outcome Route Bth Weight Gen Labor Lgth Anes t hesia Del Locatn Provider FOB Unknown 2016 miscarriage spontaneous 03/15/20 River 39 live - full term 7lbs 12oz Female n one [facility] 10/16/22 Ember 38 live - full term 7lbs 7.4oz Female none [facility] Dr. nAgulo Delivery Date: 03/15/20 Last Updated by: Shital Loving no complications Delivery Date: 10/16/22 Last Updated by: Eun Griffith COVID Visit Details Expected Delivery Route/Plan Labor Preferences- CB/BF classes: [] labor support person: [] labor intervention preferences: [] pain management options preferred: [] cut cord/dad catch: [] : [] PP control planned: [] discussed possible routes of delivery and associated risks: [] special requests: [] Plans Covid status: [] Flu vaccine: [] Tdap vaccine: declined Rhogam: [] LARC form signed: [] movement and labor precautions reviewed. Problem list reviewed and updated with the most current plan of care details and appropriate orders placed. Relevant counseling for the gestational age provided. Continue routine care and follow up unless otherwise noted in visit notes/problem list details OB Flowsheet Initial Weight: 132 lb Date -?-?-?-?-?-?-?-?-?-?-?-?- EGA Weight BP Urine Prot -?-?-?-?-?-?-?-?-?-?-?-?- Glucose FHR FuHt Pres Dilation -?-?-?-?-?-?-?-?-?-?-?-?- Effaced St Visit Note 05/10/24 -?-?-?-?-?-?-?-?-?-?-?-?- 8w 5d 132 lb (+0 oz) 112/59 -?-?-?-?-?-?-?-?-?-?-?-?- A 180 -?-?-?-?-?-?-?-?-?-?-?-?- B 180 A -?-?-?-?-?-?-?-?-?-?-?-?- B -?-?-?-?-?-?-?-?-?-?-?-?- A -?-?-?-?-?-?-?-?-?-?-?-?- B A KW-CRL cons with dates. appears to be Di Di twins. [facility] consult. accepts NIPT -?-?-?-?-?-?-?-?-?-?-?-?- B 06/07/24 -?-?-?-?-?-?-?-?-?-?-?-?- 12w 5d 137 lb 4 oz (+5 lb 4 oz) 118/77 Negative -?-?-?-?-?-?-?-?-?-?-?-?- Negative A 140 -?-?-?-?-?-?-?-?-?-?-?-?- B 130 A -?-?-?-?-?-?-?-?-?-?-?-?- B -?-?-?-?-?-?-?-?-?-?-?-?- A -?-?-?-?-?-?-?-?-?-?-?-?- B A JV- CRL's are co nsistent with the established gestational age. She is still feeling very sick. sending promethazine to pharmacy. Not losing weight. keeping down fluids. -?-?-?-?-?-?-?-?-?-?-?-?- B 07/09/24 -?-?-?-?-?-?-?-?-?-?-?-?- 17w 2d 143 lb 8 oz (+11 lb 8 oz) 110/69 Negative -?-?-?-?-?-?-?-?-?-?-?-?- Negative A 140 -?-?-?-?-?-?-?-?-?-?-?-?- B 150 A -?-?-?-?-?-?-?-?-?-?-?-?- B -?-?-?-?-?-?-?-?-?-?-?-?- A -?-?-?-?-?-?-?-?-?-?-?-?- B A JV- NIPT girls! no complaints today. has anatomy scan scheduled. -?-?-?-?-?-?-?-?-?-?-?-?- B 08/14/24 -?-?-?-?-?-?-?-?-?-?-?-?- 22w 3d 150 lb (+18 lb) 123/81 Negative -?-?-?-?-?-?-?-?-?-?-?-?- Negative A 157 -?-?-?-?-?-?-?-?-?-?-?-?- B 158 A -?-?-?-?-?-?--?-?-?-?-?-?- B -?-?-?-?-?-?-?-?-?-?-?-?- A -?-?-?-?-?-?-?-?-?-?-?-?- B A SM- no vb lof go od fm no regular ctx -?-?-?-?-?-?-?-?-?-?-?-?- B 09/05/24 -?-?-?-?-?-?-?-?-?-?-?-?- w 4d 155 lb 6 oz (+23 lb 6 oz) 111/75 Negative -?-?-?-?-?-?-?-?-?-?-?-?- Negative A 158 -?-?-?-?-?-?-?-?-?-?-?-?- B 153 A -?-?-?-?-?-?-?-?-?-?-?-?- B -?-?-?-?-?-?-?-?-?-?-?-?- A -?-?-?-?-?-?-?-?-?-?-?-?- B A SM- no vb lof go od fm no regular ctx co heartburn -?-?-?-?-?-?-?-?-?-?-?-?- B 10/02/24 -?-?-?-?-?-?-?-?-?-?-?-?- 29w 3d 160 lb 4 oz (+28 lb 4 oz) 106/71 Negative -?-?-?-?-?-?-?-?-?-?-?-?- Negative A 138 -?-?-?-?-?-?-?-?-?-?-?-?- B 125 A Cephalic -?-?-?-?-?-?-?-?-?-?-?-?- B Transverse -?-?-?-?-?--?-?-?-?-?-?-?- A -?-?-?-?-?-?-?-?-?-?-?-?- B A JV- no complaint s today. no lof, vaginal bleeding, or dec fm. -?-?-?-?-?-?-?-?-?-?-?-?- B 10/17/24 -?-?-?-?-?-?-?-?-?-?-?-?- 31w 4d 166 lb 2 oz (+34 lb 2 oz) 111/75 -?-?-?-?-?-?-?-?-?-?-?-?- A 140 -?-?-?-?-?-?-?-?-?-?-?-?- B 125 A Cephalic -?-?-?-?-?-?-?-?-?-?-?-?- B Cephalic -?-?-?-?-?-?-?-?-?-?-?-?- A -?-?-?-?-?-?-?-?-?-?-?-?- B A SM- no vb lof go od fm no reuglar ctx -?-?-?-?-?-?-?-?-?-?-?-?- B 10/29/24 -?-?-?-?-?-?-?-?-?-?-?-?- 33w 2d 166 lb 6 oz (+34 lb 6 oz) 115/72 Negative -?-?-?-?-?-?-?-?-?-?--?-?- Negative A 144 -?-?-?-?-?-?-?-?-?-?-?-?- B 143 A Cephalic -?-?-?-?-?-?-?-?-?-?-?-?- B Cephalic -?-?-?-?-?-?-?-?-?-?-?-?- A -?-?-?-?-?-?-?-?-?-?-?-?- B A JV- no complaint s today. feeling good movement and no contractions. planning 38 week IOL if no labor before this. -?-?-?-?-?-?-?-?-?-?-?-?- B 11/13/24 -?-?-?-?-?-?-?-?-?-?-?-?- 35w 3d 171 lb 6 oz (+39 lb 6 oz) 120/78 Negative -?-?-?-?-?-?-?-?-?-?-?-?- Negative A 140 -?-?-?-?-?-?-?-?-?-?-?-?- B 145 A Cephalic -?-?-?-?-?-?-?-?-?-?-?-?- B Breech -?-?-?-?-?-?-?-?-?-?-?-?- A -?-?-?-?-?-?-?-?-?-?-?-?- B A SM- no vb lof ir regualr ctx good fm discussed delivery expectations -?-?-?-?-?-?-?-?-?-?-?-?- B NST FHR Rate Baby A Baseline: 140 Variability:: Moderate Accelerations:: 15 x 15 Decelerations:: None NST Reactive:: Yes FHR Category:: Category I FHR Rate Baby B Baseline: 120 Variability:: Moderate Accelerations:: 15 x 15 Decelerations:: None NST Reactive:: Yes FHR Category:: Category I Uterine Activity:: contractions q 2 minutes ROS Constitutional Constitutional: Denies change in weight, fatigue, fever(s), headache(s), poor appetite or weakness Eyes Eyes: Denies blurry vision, change in vision, seeing flashes or spots in vision ENT HEENT: Denies dizziness, headache(s), loss taste/smell or sore throat Cardiovascular Cardiovascular: Denies chest pain, dizziness, dyspnea, irregular heart rhythm, leg edema, palpitations, rapid heart rate or vomiting Respiratory/Chest Respiratory/Chest: Denies chest tightness, cough, dyspnea or breast pain Gastrointestinal Gastrointestinal: Denies abdominal pain, anorexia, constipation, cramping, diarrhea, hemorrhoids, vomiting or weight changes Genitourinary Genitourinary: Denies dysuria, flank pain, genital lesions, genital pain, urinary frequency or urinary urgency Musculoskeletal Musculoskeletal: Denies back pain, difficulty walking, joint pain, limited range of motion, muscle cramps or numbness Integumentary Integumentary: Denies lesions or unusual bruising Neurologic Neurologic: Denies abnormal movements, abnormal speech, dizziness, numbness, seizure-like activity or syncope Psychiatric Psychiatric: Denies anxiety, behavioral changes, change in appetite, change in libido, cognitive impairment, confusion, depression, difficulty concentrating, hallucinations or suicidal thoughts Endocrine Endocrinology: Denies excessive sweating, polydipsia or polyuria Hematologic/Lymphatic Hematologic/Lymphatic: Denies easy bleeding, easy bruising or lymphadenopathy Allergic/Immunologic Allergic/Immunologic: Denies itchy eyes, lip swelling, seasonal rhinorrhea, rhinitis, throat swelling, tongue swelling, eczemia, wheezing or asthma Vital Signs Vital Signs Vital Signs: 11/14/24 21:06 11/14/24 21:06 11/14/24 21:11 Temperature Temperature Source Pulse Rate 245 H Respiratory Rate Blood Pressure 130/78 H BP Systolic 130 BP Diastolic 78 Pulse Ox 81 11/14/24 21:11 11/14/24 21:11 11/14/24 21:11 Temperature Temperature Source Temporal Pulse Rate 84 Respiratory Rate 17 Blood Pressure BP Systolic BP Diastolic Pulse Ox 11/14/24 21:11 Temperature 97.6 F L Temperature Source Pulse Rate Respiratory Rate Blood Pressure BP Systolic BP Diastolic Pulse Ox Physical Exam Const alert, oriented x3, no apparent distress and healthy appearing General Appearance: cooperative; Negative for anxious HEENT normocephalic Face and Sinus: normal facial exam Eyes EOMs intact bilaterally and no scleral icterus General Eye: normal appearance of both eyes Neck full ROM and supple Lymph Lymphatic: no lymphadenopathy noted Chest Chest: abnormal inspection of the chest Resp normal respiratory effort Effort and Inspection: able to speak in complete sentences Cardio regular rate GI soft to palpation and non-tender Inspection: gravid Palpation: soft; Negative for tender Rectal Exam: other Other Details: baby A vertex, baby B right upper quadrant breech. external exam normal Back/Spine no CVA tenderness Extremity normal to inspection, full ROM and no clubbing, cyanosis or edema General Extremity: Negative for calf tenderness or edema Skin Lesions: no lesions Rashes: no rashes Psych mental status grossly normal Labs Labs Labs: Blood Type O POSITIVE Antibody Screen NEGATIVE Hct 31.4 % (37-47) L Hgb 10.3 g/dL (12.0-15.0) L Obstetrics Ultrasound Syphilis Total Ab Nonreactive (Nonreactive) Rubella IgG Antibody Reactive (Nonreactive) Hep Bs Antigen Non-Reactive (Nonreactive) Hepatitis C Antibody Non-Reactive (Nonreactive) Chlamydia DNA (JOI) Negative (Negative) N.gonorrhoeae DNA (JOI) Negative (Negative) HIV 1&2 Antibody Nonreactive (Nonreactive) Glucose 1 Hr 50 gm 147 mg/dL Gest Glucose Tolerance MG/DL Rhogam given: No Miscellaneous Test COMMENT Assessment & Plan (1) Anemia affecting : COMMENT: OTC Fe Daily (2) Dichorionic diamniotic twin gestation: COMMENT: growths q4 at 24 weeks. NSTs at 36weeks on L&D. nl growth. baby B breech. (3) Abnormal glucose: COMMENT: 3 HR GTT (4) Family history of hemophilia: COMMENT: maternal grandfather (5) Supervision of high-risk : COMMENT: PRR, , BERNADETTE 12/15/24, girls Darya, Jennifer PC: River & Amber, BF: Drake (6) : QUALIFIERS: Weeks of gestation: 35 weeks Qualified Code(s): Z3A.35 - 35 weeks gestation of COMMENT: Prior carrier testing done: negative. NIPT low risk. nl anatomy (7) Celiac disease: COMMENT: gluten free diet PLAN: Plan After discussing the patient's diagnosis and treatment plan options, patient wishes to proceed with surgical management. I have discussed with the patient the risks, benefits, and alternatives of the procedure which include but are not limited to risks of anesthesia, bleeding, infection, possible damage to bowel, bladder, or surrounding vasculature which could lead to additional surgery to evaluate any complications. Patient agrees to procedure and wishes to proceed. plan for primary cs for twins, baby B breech MONIQUE 11/14/242120 <Electronically signed by Ramandeep Ferguson DO> Cosigner Signature (if applicable): CC: Dr. Ramandeep Ferguson DO; Dr. Fabiola Bearden DO~ Signed [facility] Work Phone: [phone] History and physical note 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 Fabiola Bearden DO Status:ADM IN Location: IU339-2 HPI - General HPI Narrative DARRYL BUI, is a 24 y/o @35 weeks 4 days who presents to L&D with contractions q 2 minutes. On exam she is noted to be 5 cm dilated with bulging membranes, 85% effaced and -1 station. She is a twin gestation and baby B is breech. She denies loss of fluid, vaginal bleeding, or decreasedfetal movement. Maternal Data Information BERNADETTE Calculator Estimated Delivery Date Method Current WG Current Estimate 12/15/24 Ultrasound #1 35w 4d Other Estimates 12/15/24 LMP (Certain) 35w 4d # 2 PFSH PFSH Medical History Twin History of marijuana use Trauma Migraine Autoimmune disease Family history of hemophilia History of suicidal ideation Anxiety and depression Home Medications ?Medication ?Instructions ?Recorded ?Last Taken ?Type docosahexaenoic acid 200 mg 1 mg PO DAILY 05/01/2407/28 08:00 History capsule ( DHA) famotidine 20 mg tablet (Pepcid) 20 mg PO DAILY #30 ta bs 09/05/24 Unknown Rx aspirin 81 mg chewable tablet 1 tab PO DAILY 10/09/24 11/01/24 08:00 History (Aspirin Childrens) ferrous sulfate 325 mg (65 mg 325 mg PO DAILY 10/09/24 10/31/24 22:00 History iron) tablet (Feosol) Allergy/AdvReac Type Severity Reaction Status Date / Time gluten Allergy Severe Abd Verified 11/14/24 21:19 cramps/diarrhea amoxicillin Allergy Mild Rash Verified 11/14/24 21:19 penicillin G Allergy Mild Rash Verified 11/14/24 21:19 pomegranate Allergy Anaphylaxis Verified 11/14/24 21:19 Family History Mother Arthritis Fibromyalgia Father Epilepsy Surgical History Status post vaginal delivery Status post vaginal delivery H/O breast surgery Social History adopted: No household members: children number of children: 2 current occupational status: employed current occupation: [employer] current occupational exposures/hazards: No pets and animals: No history of recent travel: Yes ( - Mar 2024) out of state: Yes out of country: No sexually active: Yes Smoking Status: Never smoker alcohol intake: never substance use type: marijuana diet: gluten free well-balanced diet: daily or most days caffeine: Yes Type: coffee Number of servings: 1 eating out: rarely or never during the past year weight has: remained stable what type of physical activity do you participate in: walking frequency: 3-4 times per week duration: < 15 minutes/day 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 Date Name GA/Weeks Outcome Route Bth Weight Infant Gen Labor Lgth Anes t hesia Del Locatn Provider FOB Unknown 2017 miscarriage spontaneous 03/15/20 [place] 39 live - full term 7lbs 12oz Female n one [facility] 10/16/22 E[place] 38 live - full term 7lbs 7.4oz Female none [facility] Dr. Angulo Delivery Date: 03/15/20 Last Updated by: Shital Loving no complications Delivery Date: 10/16/22 Last Updated by: Eun Griffith COVID Visit Details Expected Delivery Route/Plan Labor Preferences- CB/BF classes: [] labor support person: [] labor intervention preferences: [] pain management options preferred: [] cut cord/dad catch: [] : [] PP control planned: [] discussed possible routes of delivery and associated risks: [] special requests: [] Plans Covid status: [] Flu vaccine: [] Tdap vaccine: declined Rhogam: [] LARC form signed: [] movement and labor precautions reviewed. Problem list reviewed and updated with the most current plan of care details and appropriate ordersplaced. Relevant counseling for the gestational age provided. Continue routine care and follow up unless otherwise noted in visit notes/problem list details OB Flowsheet Initial Weight: 132 lb Date -?-?-?-?-?-?-?-?-?-?-?-?- EGA Weight BP Urine Prot -?-?-?-?-?-?-?-?-?-?-?-?- Glucose FHR FuHt Pres Dilation -?-?-?-?-?-?-?-?-?-?-?-?- Effaced St Visit Note 05/10/24 -?-?-?-?-?-?-?-?-?-?-?-?- 8w 5d 132 lb (+0 oz) 112/59 -?-?-?-?-?-?-?-?-?-?-?-?- A 180 -?-?-?-?-?-?-?-?-?-?-?-?- B 180 A -?-?-?-?-?-?-?-?-?-?-?-?- B -?-?-?-?-?-?-?-?-?-?-?-?- A -?-?-?-?-?-?-?-?-?-?-?-?- B A KW-CRL cons with dates. appears to be Di Di twins. MFM consult. accepts NIPT -?-?-?-?-?-?-?-?-?-?-?-?- B 06/07/24 -?-?-?-?-?-?-?-?-?-?-?-?- 12w 5d 137 lb 4 oz (+5 lb 4 oz) 118/77 Negative -?-?-?-?-?-?-?-?-?-?-?-?- Negative A 140 -?-?-?-?-?-?-?-?-?-?-?-?- B 130 A -?-?-?-?-?-?-?-?-?-?-?-?- B -?-?-?-?-?-?-?-?-?-?-?-?- A -?-?-?-?-?-?-?-?-?-?-?-?- B A JV- CRL's are co nsistent with the established gestational age. She is still feeling very sick. sending promethazine to pharmacy. Not losing weight. keeping down fluids. -?-?-?-?-?-?-?-?-?-?-?-?- B 07/09/24 -?-?-?-?-?-?-?-?-?-?-?-?- 17w 2d 143 lb 8 oz (+11 lb 8 oz) 110/69 Negative -?-?-?-?-?-?-?-?-?-?-?-?- Negative A 140 -?-?-?-?-?-?-?-?-?-?-?-?- B 150 A -?-?-?-?-?-?-?-?-?-?-?-?- B -?-?-?-?-?-?-?-?-?-?-?-?- A -?-?-?-?-?-?-?-?-?-?-?-?- B A JV- NIPT girls! no complaints today. has anatomy scan scheduled. -?-?-?-?-?-?-?-?-?-?-?-?- B 08/14/24 -?-?-?-?-?-?-?-?-?-?-?-?- 22w 3d 150 lb (+18 lb) 123/81 Negative -?-?-?-?-?-?-?-?-?-?-?-?- Negative A 157 -?-?-?-?-?-?-?-?-?-?-?-?- B 158 A -?-?-?-?-?-?--?-?-?-?-?-?- B -?-?-?-?-?-?-?-?-?-?-?-?- A -?-?-?-?-?-?-?-?-?-?-?-?- B A SM- no vb lof go od fm no regular ctx -?-?-?-?-?-?-?-?-?-?-?-?- B 09/05/24 -?-?-?-?-?-?-?-?-?-?-?-?- 25w 4d 155 lb 6 oz (+23 lb 6 oz) 111/75 Negative -?-?-?-?-?-?-?-?-?-?-?-?- Negative A 158 -?-?-?-?-?-?-?-?-?-?-?-?- B 153 A -?-?-?-?-?-?-?-?-?-?-?-?- B -?-?-?-?-?-?-?-?-?-?-?-?- A -?-?-?-?-?-?-?-?-?-?-?-?- B A SM- no vb lof go od fm no regular ctx co heartburn -?-?-?-?-?-?-?-?-?-?-?-?- B 10/02/24 -?-?-?-?-?-?-?-?-?-?-?-?- 29w 3d 160 lb 4 oz (+28 lb 4 oz) 106/71 Negative -?-?-?-?-?-?-?-?-?-?-?-?- Negative A 138 -?-?-?-?-?-?-?-?-?-?-?-?- B 125 A Cephalic -?-?-?-?-?-?-?-?-?-?-?-?- B Transverse -?-?-?-?-?--?-?-?-?-?-?-?- A -?-?-?-?-?-?-?-?-?-?-?-?- B A JV- no complaint s today. no lof, vaginal bleeding, or dec fm. -?-?-?-?-?-?-?-?-?-?-?-?- B 10/17/24 -?-?-?-?-?-?-?-?-?-?-?-?- 31w 4d 166 lb 2 oz (+34 lb 2 oz) 111/75 -?-?-?-?-?-?-?-?-?-?-?-?- A 140 -?-?-?-?-?-?-?-?-?-?-?-?- B 125 A Cephalic -?-?-?-?-?-?-?-?-?-?-?-?- B Cephalic -?-?-?-?-?-?-?-?-?-?-?-?- A -?-?-?-?-?-?-?-?-?-?-?-?- B A SM- no vb lof go od fm no reuglar ctx -?-?-?-?-?-?-?-?-?-?-?-?- B 10/29/24 -?-?-?-?-?-?-?-?-?-?-?-?- 33w 2d 166 lb 6 oz (+34 lb 6 oz) 115/72 Negative -?-?-?-?-?-?-?-?-?-?--?-?- Negative A 144 -?-?-?-?-?-?-?-?-?-?-?-?- B 143 A Cephalic -?-?-?-?-?-?-?-?-?-?-?-?- B Cephalic -?-?-?-?-?-?-?-?-?-?-?-?- A -?-?-?-?-?-?-?-?-?-?-?-?- B A JV- no complaint s today. feeling good movement and no contractions. planning 38 week IOL if no labor before this. -?-?-?-?-?-?-?-?-?-?-?-?- B 11/13/24 -?-?-?-?-?-?-?-?-?-?-?-?- 35w 3d 171 lb 6 oz (+39 lb 6 oz) 120/78 Negative -?-?-?-?-?-?-?-?-?-?-?-?- Negative A 140 -?-?-?-?-?-?-?-?-?-?-?-?- B 145 A Cephalic -?-?-?-?-?-?-?-?-?-?-?-?- B Breech -?-?-?-?-?-?-?-?-?-?-?-?- A -?-?-?-?-?-?-?-?-?-?-?-?- B A SM- no vb lof ir regualr ctx good fm discussed delivery expectations -?-?-?-?-?-?-?-?-?-?-?-?- B NST FHR Rate Baby A Baseline: 140 Variability:: Moderate Accelerations:: 15 x 15 Decelerations:: None NST Reactive:: Yes FHR Category:: Category I FHR Rate Baby B Baseline: 120 Variability:: Moderate Accelerations:: 15 x 15 Decelerations:: None NST Reactive:: Yes FHR Category:: Category I Uterine Activity:: contractions q 2 minutes ROS Constitutional Constitutional: Denies change in weight, fatigue, fever(s), headache(s), poor appetite or weakness Eyes Eyes: Denies blurry vision, change in vision, seeing flashes or spots in vision ENT HEENT: Denies dizziness, headache(s), loss taste/smell or sore throat Cardiovascular Cardiovascular: Denies chest pain, dizziness, dyspnea, irregular heart rhythm, leg edema, palpitations, rapid heart rate or vomiting Respiratory/Chest Respiratory/Chest: Denies chest tightness, cough, dyspnea or breast pain Gastrointestinal Gastrointestinal: Denies abdominal pain, anorexia, constipation, cramping, diarrhea, hemorrhoids, vomiting or weight changes Genitourinary Genitourinary: Denies dysuria, flank pain, genital lesions, genital pain, urinary frequency or urinary urgency Musculoskeletal Musculoskeletal: Denies back pain, difficulty walking, joint pain, limited range of motion, muscle cramps or numbness Integumentary Integumentary: Denies lesions or unusual bruising Neurologic Neurologic: Denies abnormal movements, abnormal speech, dizziness, numbness, seizure-like activity or syncope Psychiatric Psychiatric: Denies anxiety, behavioral changes, change in appetite, change in libido, cognitive impairment, confusion, depression, difficulty concentrating, hallucinations or suicidal thoughts Endocrine Endocrinology: Denies excessive sweating, polydipsia or polyuria Hematologic/Lymphatic Hematologic/Lymphatic: Denies easy bleeding, easy bruising or lymphadenopathy Allergic/Immunologic Allergic/Immunologic: Denies itchy eyes, lip swelling, seasonal rhinorrhea, rhinitis, throat swelling, tongue swelling, eczemia, wheezing or asthma Vital Signs Vital Signs Vital Signs: 11/14/24 21:06 11/14/24 21:06 11/14/24 21:11 Temperature Temperature Source Pulse Rate 245 H Respiratory Rate Blood Pressure 130/78 H BP Systolic 130 BP Diastolic 78 Pulse Ox 81 11/14/24 21:11 11/14/24 21:11 11/14/24 21:11 Temperature Temperature Source Temporal Pulse Rate 84 Respiratory Rate 17 Blood Pressure BP Systolic BP Diastolic Pulse Ox 11/14/24 21:11 Temperature 97.6 F L Temperature Source Pulse Rate Respiratory Rate Blood Pressure BP Systolic BP Diastolic Pulse Ox Physical Exam Const alert, oriented x3, no apparent distress and healthy appearing General Appearance: cooperative; Negative for anxious HEENT normocephalic Face and Sinus: normal facial exam Eyes EOMs intact bilaterally and no scleral icterus General Eye: normal appearance of both eyes Neck full ROM and supple Lymph Lymphatic: no lymphadenopathy noted Chest Chest: abnormal inspection of the chest Resp normal respiratory effort Effort and Inspection: able to speak in complete sentences Cardio regular rate GI soft to palpation and non-tender Inspection: gravid Palpation: soft; Negative for tender Rectal Exam: other Other Details: baby A vertex, baby B right upper quadrant breech. external exam normal Back/Spine no CVA tenderness Extremity normal to inspection, full ROM and no clubbing, cyanosis or edema General Extremity: Negative for calf tenderness or edema Skin Lesions: no lesions Rashes: no rashes Psych mental status grossly normal Labs Labs Labs: Blood Type O POSITIVE Antibody Screen NEGATIVE Hct 31.4 % (37-47) L Hgb 10.3 g/dL (12.0-15.0) L Obstetrics Ultrasound Syphilis Total Ab Nonreactive (Nonreactive) Rubella IgG Antibody Reactive (Nonreactive) Hep Bs Antigen Non-Reactive (Nonreactive) Hepatitis C Antibody Non-Reactive (Nonreactive) Chlamydia DNA (JOI) Negative (Negative) N.gonorrhoeae DNA (JOI) Negative (Negative) HIV 1&2 Antibody Nonreactive (Nonreactive) Glucose 1 Hr 50 gm 147 mg/dL Gest Glucose Tolerance MG/DL Rhogam given: No Miscellaneous Test COMMENT Assessment & Plan (1) Anemia affecting : COMMENT: OTC Fe Daily (2) Dichorionic diamniotic twin gestation: COMMENT: growths q4 at 24 weeks. NSTs at 36weeks on L&D. nl growth. baby B breech. (3) Abnormal glucose: COMMENT: 3 HR GTT (4) Family history of hemophilia: COMMENT: maternal grandfather (5) Supervision of high-risk : COMMENT: PRR, , BERNADETTE 12/15/24, girls Darya, Jennifer PC: River & Amber BF: Drake (6) : QUALIFIERS: Weeks of gestation: 35 weeks Qualified Code(s): Z3A.35 - 35 weeks gestation of COMMENT: Prior carrier testing done: negative. NIPT low risk. nl anatomy (7) Celiac disease: COMMENT: gluten free diet PLAN: Plan After discussing the patient's diagnosis and treatment plan options, patient wishes to proceed withsurgical management. I have discussed with the patient the risks, benefits, and alternatives of theprocedure which include but are not limited to risks of anesthesia, bleeding, infection, possible damage to bowel, bladder, or surrounding vasculature which could lead to additional surgery to evaluate any complications. Patient agrees to procedure and wishes to proceed. plan for primary cs for twins, baby B breech MONIQUE 11/14/242120 Cosigner Signature (if applicable): CC: Dr. Ramandeep Ferguson, DO; Dr. Fabiola Bearden, DO~ Signed [facility]05-08-2025 Instructions* Patient Instructions* Alfreda David PA-C - 11/08/2024 6:32 PM EDT Otitis Media An ear infection is also called otitis media. Blocked or swollen eustachian tubes can cause an infection. Eustachian tubes connect the middle ear to the back of the nose and throat. They drain fluid from the middle ear. You may have a buildup of fluid in your ear. Germs build up in the fluid and infection develops. Medicines: You may need any of the following: Acetaminophen decreases pain and fever. It is available without a doctor's order. Ask how much to take and how often to take it. Follow directions. Read the labels of all other medicines you are using to see if they also contain acetaminophen, or ask your doctor or pharmacist. Acetaminophen can cause liver damage if not taken correctly. Do not use more than 4 grams (4,000 milligrams) total of acetaminophen in one day. NSAIDs , such as ibuprofen, help decrease swelling, pain, and fever. This medicine is available with or without a doctor's order. NSAIDs can cause stomach bleeding or kidney problems in certain people. If you take blood thinner medicine, always ask your healthcare provider if NSAIDs are safe for you. Always read the medicine label and follow directions. Ear drops may contain medicine to decrease pain and inflammation. Antibiotics help treat a bacterial infection. Take your medicine as directed. Contact your healthcare provider if you think your medicine is not helping or if you have side effects. Tell him or her if you are allergic to any medicine. Keep a list of the medicines, vitamins, and herbs you take. Include the amounts, and when and why you take them. Bring the list or the pill bottles to follow-up visits. Carry your medicine list with you in caseof an emergency. Self-care: Apply heat on your ear for 15 to 20 minutes, 3 to 4 times a day or as directed. You can apply heat with an electric heating pad, hot water bottle, or warm compress. Always put a cloth between your skin and the heat pack to prevent almaraz. Heat helps decrease pain. Apply ice on your ear for 15 to 20 minutes, 3 to 4 times a day for 2 days or as directed. Use an ice pack, or put crushed ice in a plastic bag. Cover it with a towel before you apply it to your ear. Ice decreases swelling and pain. Call your doctor if: You see blood or pus draining from your ear. Your ear pain gets worse or does not go away, even after treatment. The outside of your ear is red or swollen. You are vomiting or have diarrhea. You have questions or concerns about your condition or care. Go to the emergency department if: You have clear fluid coming from your ear. You have a stiff neck, headache, and a fever. [facility] NoteHNO ID: [id number] Author: ALFREDA DAVID PA-C Service: ? Author Type: Physician Varnishing Machine Operator Type: Progress Notes Filed: 11/08/2024 18:50 Note Text: [facility] Subjective Patient presents with: Ear Problem: Ear is painful, started today. Darryl Bui is a 34-week 24-year-old female with a past medical history of depression who presents to [facility] today for evaluation of left ear pain that began earlier today. She states that she has had nasal congestion over the past couple of days. Review of Systems Constitutional: Negative for chills, diaphoresis and fever. HENT: Positive for congestion and ear pain (left). All other systems reviewed and are negative. Objective BP 136/67 Pulse 119 Temp 36.1 ?C (97 ?F) Resp 16 LMP 03/10/2024 (Exact Date) SpO2 99% Physical Exam Vitals reviewed. Constitutional: General: She is not in acute distress. Appearance: Normal appearance. She is normal weight. She is not ill-appearing or toxic-appearing. Comments: The patient appears to be non-toxic, in no acute distress, and resting comfortably on the table. HENT: Head: Normocephalic and atraumatic. Right Ear: Tympanic membrane, ear canal and external ear normal. Left Ear: Tympanic membrane is injected and erythematous. Eyes: Extraocular Movements: Extraocular movements intact. Cardiovascular: Rate and Rhythm: Normal rate and regular rhythm. Heart sounds: Normal heart sounds. No murmur heard. No friction rub. No gallop. Pulmonary: Effort: Pulmonary effort is normal. No respiratory distress. Breath sounds: Normal breath sounds. No wheezing. Musculoskeletal: General: Normal range of motion. Cervical back: Normal range of motion. Skin: General: Skin is warm and dry. Findings: No erythema or rash. Neurological: General: No focal deficit present. Mental Status: She is alert and oriented to person, place, and time. Mental status is at baseline. Psychiatric: Mood and Affect: Mood normal. Behavior: Behavior normal. Thought Content: Thought content normal. MDM Examination of the left ear reveals erythema and injection of the tympanic membrane consistent with acute otitis media. Patient counseled regarding suspected diagnosis and given a prescription for Omnicef. Advised to follow-up with primary care as needed for any new or worsening symptoms. ASSESSMENT/PLAN: 1. Acute otitis media, left - ICD9: 382.9, ICD10: H66.92 (primary diagnosis) - CEFDINIR 300 MG CAPSULE 2. Left ear pain - ICD9: 388.70, ICD10: H92.02 3. Nasal congestion - ICD9: 478.19, ICD10: R09.81 Medical Decision Making: Problems: Low: Acute, uncomplicated illness or injury Risk: Minimal: Minimal risk from testing/treatment Moderate: Drug management Medical Decision Making Level: 3 - Low I spent a total of 20 minutes on the date of the service which included preparing to see the patient, [id number] patient care, completing clinical documentation, performing a medically appropriate examination, counseling and educating the patient/family/caregiver, and ordering medications, tests, or procedures. Alfreda David PA-C [facility] History of Present illness Narrative* Alfreda Dvaid PA-C - 11/08/2024 6:19 PM EDT [facility] Subjective Patient presents with: Ear Problem: Ear is painful, started today. Darryl Bui is a 34-week 24-year-old female with a past medical history of depressionwho presents to [facility] for evaluation of left ear pain that began earlier today. She states that she has had nasal congestion over the past couple of days. Review of Systems Constitutional: Negative for chills, diaphoresis and fever. HENT: Positive for congestion and ear pain (left). All other systems reviewed and are negative. Objective BP 136/67 Pulse 119 Temp 36.1 C (97 F) Resp 16 LMP 03/10/2024 (Exact Date) SpO2 99% Physical Exam Vitals reviewed. Constitutional: General: She is not in acute distress. Appearance: Normal appearance. She is normal weight. She is not ill-appearing or toxic-appearing. Comments: The patient appears to be non-toxic, in no acute distress, and resting comfortably on thetable. HENT: Head: Normocephalic and atraumatic. Right Ear: Tympanic membrane, ear canal and external ear normal. Left Ear: Tympanic membrane is injected and erythematous. Eyes: Extraocular Movements: Extraocular movements intact. Cardiovascular: Rate and Rhythm: Normal rate and regular rhythm. Heart sounds: Normal heart sounds. No murmur heard. No friction rub. No gallop. Pulmonary: Effort: Pulmonary effort is normal. No respiratory distress. Breath sounds: Normal breath sounds. No wheezing. Musculoskeletal: General: Normal range of motion. Cervical back: Normal range of motion. Skin: General: Skin is warm and dry. Findings: No erythema or rash. Neurological: General: No focal deficit present. Mental Status: She is alert and oriented to person, place, and time. Mental status is at baseline. Psychiatric: Mood and Affect: Mood normal. Behavior: Behavior normal. Thought Content: Thought content normal. MDM Examination of the left ear reveals erythema and injection of the tympanic membrane consistent withacute otitis media. Patient counseled regarding suspected diagnosis and given a prescription for Omnicef. Advised to follow-up with primary care as needed for any new or worsening symptoms. ASSESSMENT/PLAN: 1. Acute otitis media, left - ICD9: 382.9, ICD10: H66.92 (primary diagnosis) - CEFDINIR 300 MG CAPSULE 2. Left ear pain - ICD9: 388.70, ICD10: H92.02 3. Nasal congestion - ICD9: 478.19, ICD10: R09.81 Medical Decision Making: Problems: Low: Acute, uncomplicated illness or injury Risk: Minimal: Minimal risk from testing/treatment Moderate: Drug management Medical Decision Making Level: 3 - Low I spent a total of 20 minutes on the date of the service which included preparing to see the patient, [id number] patient care, completing clinical documentation, performing a medically appropriate examination, counseling and educating the patient/family/caregiver, and ordering medications, tests,or procedures. Alfreda David PA-C Procedures [facility] Progress note Author Devora Olsen [facility] Note Date/Time November 08, 2024 1:35am [facility] Medical Records Department [address] [place] [address] OB Triage Progress Note 11/08/24133 MR#: [id number] Acct: [id number] Name: DARRYL BUI Rep #:[id number] : 2000 24 From: Devora lozano MD PCP: Dr. Fabiola Bearden, DO Status:REG CLI Y DOS: Location: [place] [address] Progress Notes Date of Service: 11/07/24 Progress Note: Patient presents for triage evaluation secondary to contractions FHT: 140 Moderate variability reactive no decelerations category I tracing [place]: q 2-5 Contractions Assessment and plan: threatened labor 34 weeks Reactive NST, reassuring maternal and status patient discharged to home to follow-up as csheduled no cervical change dc home. See problem list details for additional plan information. Charges/Coding Procedures Urinary/Genital 52xxx-59xxx: 87512-10 non-stress test Interp 11/08/24134 <Electronically signed by Devora monet MD> Date _ Devora Olsen MD Cosigner Signature (if applicable): Date __ CC: Dr. Fabiola Bearden DO; Dr. Devora Olsen MD ~ Signed [facility] Work Phone: 1(779) 943-153005-08-2025 Progress note [facility] Medical Records Department [address] [place] [address] OB Triage Progress Note 11/08/24 0134 MR#: [id number] Acct: [id number] Name: DARRYL BUI Rep #:[id number] : 2000 24 From: Devora lozano MD PCP: Dr. Fabiola Bearden DO Status:REG CLI Y DOS: Location: [place] [address] Progress Notes Date of Service: 11/07/24 Progress Note: Patient presents for triage evaluation secondary to contractions FHT: 140 Moderate variability reactive no decelerations category I tracing [place]: q 2-5 Contractions Assessment and plan: threatened labor 34 weeks Reactive NST, reassuring maternal and status patient discharged to home to follow-up as csheduled no cervical change dc home. See problem list details for additional plan information. Charges/Coding Procedures Urinary/Genital 52xxx-59xxx: 43746-07 non-stress test Interp 11/08/24 Jean Paul monet MD> Date _ Devora Olsen MD Cosigner Signature (if applicable): Date __ CC: Dr. Fabiola Bearden DO; Dr. Devora Olsen MD ~ Signed [facility]03-05-2025 Evaluation note* Diagnosis Onset Date Resolution Status Admit Date Anxiety and depression acute [facility] 2024 2:51pm Celiac disease acute September 05, 2024 2:51pm Family history of hemophilia acute September 05, 2024 2:51pm History of suicidal ideation acute September 05, 2024 2:51pm LGSIL on Pap smear of cervix February, acute September 05, 2024 2:51pm Marijuana use acute September 05, 2024 2:51pm PTSD (post-traumatic stress disorder) acute September 05, 2024 2:51pm Dichorionic diamniotic twin gestation inactive September 05, 2024 2:51pm inactive September 05 2:51pm Supervision of high-risk inactive September 05, 2024 2:51pm Anemia affecting acute October 02, 2024 2:46pm Anxiety and depression acute Ap 2024 2:46pm Celiac disease acute October 02, 2024 2:46pm Family history of hemophilia acute October 02, 2024 2:46pm History of suicidal ideation acute October 02, 2024 2:46pm LGSIL on Pap smear of cervix February, acute October 02, 2024 2:46pm Marijuana use acute October 02, 2024 2:46pm PTSD (post-traumatic stress disorder) acute October 02, 2024 2:46pm Abnormal glucose inactive October 2:46pm Dichorionic diamniotic twin gestation inactive October 02, 2024 2:46pm inactive October 02 2:46pm Supervision of high-risk inactive October 02, 2024 2:46pm Anemia affecting acute October 17, 2024 3:20pm Anxiety and depression acute Ap 2024 3:20pm Celiac disease acute October 3:20pm Family history of hemophilia acute October 17, 2024 3:20pm History of suicidal ideation acute October 17, 2024 3:20pm LGSIL on Pap smear of cervix February, acute October 17, 2024 3:20pm Marijuana use acute October 17, 2024 3:20pm PTSD (post-traumatic stress disorder) acute October 17, 2024 3:20pm Abnormal glucose inactive October 172024 3:20pm Dichorionic diamniotic twin gestation inactive October 17, 2024 3:20pm inactive October 17 3:20pm Supervision of high-risk inactive October 17, 2024 3:20pm Anemia affecting acute October 29, 2024 2:47pm Anxiety and depression acute Ap 2024 2:47pm Celiac disease acute October 2:47pm Family history of hemophilia acute October 29, 2024 2:47pm History of suicidal ideation acute October 29, 2024 2:47pm LGSIL on Pap smear of cervix February, acute October 29, 2024 2:47pm Marijuana use acute October 29, 2024 2:47pm PTSD (post-traumatic stress disorder) acute October 29, 2024 2:47pm Abnormal glucose inactive October 292024 2:47pm Dichorionic diamniotic twin gestation inactive October 29, 2024 2:47pm inactive October 29 2:47pm Supervision of high-risk inactive October 29, 2024 2:47pm Anemia affecting acute November 13, 2024 2:56pm Anxiety and depression acute 2024 2:56pm Celiac disease acute November 13, 2024 2:56pm Family history of hemophilia acute November 13, 2024 2:56pm History of suicidal ideation acute November 13, 2024 2:56pm LGSIL on Pap smear of cervix February, acute November 13, 2024 2:56pm Marijuana use acute November 13, 2:56pm PTSD (post-traumatic stress disorder) acute November 13, 2024 2 :56pm Abnormal glucose inactive November 2:56pm Dichorionic diamniotic twin gestation inactive November 13, 2024 2 :56pm inactive November 13, 2024 2:56pm Supervision of high-risk inactive November 13, 2024 2 :56pm Anemia affecting acute November 14, 2024 9:12pm Celiac disease acute November 14, 2024 9:12pm Family history of hemophilia acute November 14, 2024 9:12pm Status post section acute November 14, 2024 9:12pm Abnormal glucose inactive November 9:12pm Dichorionic diamniotic twin gestation inactive November 14, 2024 9 :12pm inactive November 14, 2024 9:12pm Supervision of high-risk inactive November 14, 2024 9 :12pm Status post section acute November 28, 2024 3:28pm Nexplanon insertion deleted November 022024 3:28pm Routine Follow-Up noneact naldo November 28, 2024 3:28pm Routine Follow-Up noneact naldo December 26, 2024 10:16am [facility] Work Phone: 1([phone]) 454-518202-11-2025 Evaluation note* Diagnosis Onset Date Resolution Status Admit Date Anxiety and depression acute Fe bruary 2024 2:08pm Celiac disease acute August 042024 2:08pm Dichorionic diamniotic twin gestation acute August 14, 2 025 2:08pm Family history of hemophilia acute August 14, 2024 2:08pm History of suicidal ideation acute August 14, 2024 2:08pm LGSIL on Pap smear of cervix February, acute August 14, 2024 2:08pm Marijuana use acute August 142024 2:08pm acute August 14, 2024 2:08pm PTSD (post-traumatic stress disorder) acute August 14, 2 025 2:08pm Supervision of high-risk acute August 14 025 2:08pm Anxiety and depression acute [facility]2024 2:51pm Celiac disease acute September 05, 2024 2:51pm Dichorionic diamniotic twin gestation acute September 05, 2024 2:51pm Family history of hemophilia acute September 05, 2024 2:51pm History of suicidal ideation acute September 05, 2024 2:51pm LGSIL on Pap smear of cervix February, acute September 05, 2024 2:51pm Marijuana use acute September 05, 2024 2:51pm acute September 05 2:51pm PTSD (post-traumatic stress disorder) acute September 05, 2024 2:51pm Supervision of high-risk acute September 05, 2024 2:51pm Abnormal glucose acute October 2:46pm Anemia affecting acute October 02, 2024 2:46pm Anxiety and depression acute 2024 2:46pm Celiac disease acute October 02, 2024 2:46pm Dichorionic diamniotic twin gestation acute October 02, 2024 2:46pm Family history of hemophilia acute October 02, 2024 2:46pm History of suicidal ideation acute October 02, 2024 2:46pm LGSIL on Pap smear of cervix February,October 02, 2024 2:46pm Marijuana use acute October 02, 2024 2:46pm acute October 02 2:46pm PTSD (post-traumatic stress disorder) acute October 02, 2024 2:46pm Supervision of high-risk acute October 02, 2024 2:46pm Abnormal glucose acute October 172024 3:20pm Anemia affecting acute October 17, 2024 3:20pm Anxiety and depression acute Ap 2024 3:20pm Celiac disease acute October 3:20pm Dichorionic diamniotic twin gestation acute October 17, 2024 3:20pm Family history of hemophilia acute October 17, 2024 3:20pm History of suicidal ideation acute October 17, 2024 3:20pm LGSIL on Pap smear of cervix February, acute October 17, 2024 3:20pm Marijuana use acute October 17, 2024 3:20pm acute October 17 3:20pm PTSD (post-traumatic stress disorder) acute October 17, 2024 3:20pm Supervision of high-risk acute October 17, 2024 3:20pm Abnormal glucose acute October 292024 2:47pm Anemia affecting acute October 29, 2024 2:47pm Anxiety and depression acute Ap 2024 2:47pm Celiac disease acute October 2:47pm Dichorionic diamniotic twin gestation acute October 29, 2024 2:47pm Family history of hemophilia acute October 29, 2024 2:47pm History of suicidal ideation acute October 29, 2024 2:47pm LGSIL on Pap smear of cervix February, acute October 29, 2024 2:47pm Marijuana use acute October 29, 2024 2:47pm acute October 29 2:47pm PTSD (post-traumatic stress disorder) acute October 29, 2024 2:47pm Supervision of high-risk acute October 29, 2024 2:47pm [facility] Work Phone: 1([phone]) 763-653202-11-2025 Evaluation note* Diagnosis Onset Date Resolution Status Admit Date Anxiety and depression acute Fe bruary 2024 2:08pm Celiac disease acute August 042024 2:08pm Dichorionic diamniotic twin gestation acute August 14, 2 025 2:08pm Family history of hemophilia acute August 14, 2024 2:08pm History of suicidal ideation acute August 14, 2024 2:08pm LGSIL on Pap smear of cervix February, acute August 14, 2024 2:08pm Marijuana use acute August 142024 2:08pm acute August 14, 2024 2:08pm PTSD (post-traumatic stress disorder) acute August 14, 2 025 2:08pm Supervision of high-risk acute August 14 2 025 2:08pm Anxiety and depression acute [facility]2024 2:51pm Celiac disease acute September 05, 2024 2:51pm Dichorionic diamniotic twin gestation acute September 05, 2024 2:51pm Family history of hemophilia acute September 05, 2024 2:51pm History of suicidal ideation acute September 05, 2024 2:51pm LGSIL on Pap smear of cervix February,September 05, 2024 2:51pm Marijuana use acute September 05, 2024 2:51pm acute September 05 2:51pm PTSD (post-traumatic stress disorder) acute September 05, 2024 2:51pm Supervision of high-risk acute September 05, 2024 2:51pm Abnormal glucose acute October 2:46pm Anemia affecting acute October 02, 2024 2:46pm Anxiety and depression acute Ap 2024 2:46pm Celiac disease acute October 02, 2024 2:46pm Dichorionic diamniotic twin gestation acute October 02, 2024 2:46pm Family history of hemophilia acute October 02, 2024 2:46pm History of suicidal ideation acute October 02, 2024 2:46pm LGSIL on Pap smear of cervix February, acute October 02, 2024 2:46pm Marijuana use acute October 02, 2024 2:46pm acute October 02 2:46pm PTSD (post-traumatic stress disorder) acute October 02, 2024 2:46pm Supervision of high-risk acute October 02, 2024 2:46pm Abnormal glucose acute October 172024 3:20pm Anemia affecting acute October 17, 2024 3:20pm Anxiety and depression acute Ap ril 2024 3:20pm Celiac disease acute October 3:20pm Dichorionic diamniotic twin gestation acute October 17, 2024 3:20pm Family history of hemophilia acute October 17, 2024 3:20pm History of suicidal ideation acute October 17, 2024 3:20pm LGSIL on Pap smear of cervix February, acute October 17, 2024 3:20pm Marijuana use acute October 17, 2024 3:20pm acute October 17 3:20pm PTSD (post-traumatic stress disorder) acute October 17, 2024 3:20pm Supervision of high-risk acute October 17, 2024 3:20pm Abnormal glucose acute October 292024 2:47pm Anemia affecting acute October 29, 2024 2:47pm Anxiety and depression acute 2024 2:47pm Celiac disease acute October 2:47pm Dichorionic diamniotic twin gestation acute October 29, 2024 2:47pm Family history of hemophilia acute October 29, 2024 2:47pm History of suicidal ideation acute October 29, 2024 2:47pm LGSIL on Pap smear of cervix February, acute October 29, 2024 2:47pm Marijuana use acute October 29, 2024 2:47pm acute October 29 2:47pm PTSD (post-traumatic stress disorder) acute October 29, 2024 2:47pm Supervision of high-risk acute October 29, 2024 2:47pm Abnormal glucose acute November 2:56pm Anemia affecting acute November 13, 2024 2:56pm Anxiety and depression acute 2024 2:56pm Celiac disease acute November 13, 2024 2:56pm Dichorionic diamniotic twin gestation acute November 13, 2024 2 :56pm Family history of hemophilia acute November 13, 2024 2:56pm History of suicidal ideation acute November 13, 2024 2:56pm LGSIL on Pap smear of cervix February, acute November 13, 2024 2:56pm Marijuana use acute November 13, 2:56pm acute November 13, 2024 2:56pm PTSD (post-traumatic stress disorder) acute November 13, 2024 2 :56pm Supervision of high-risk acute November 13, 2024 2 :56pm [facility] Work Phone: 1([phone]) 562-967302-11-2025 Evaluation note* Diagnosis Onset Date Resolution Status Admit Date Anxiety and depression acute Fe bruary 2024 2:08pm Celiac disease acute August 042024 2:08pm Dichorionic diamniotic twin gestation acute August 14 2 025 2:08pm Family history of hemophilia acute August 14, 2024 2:08pm History of suicidal ideation acute August 14, 2024 2:08pm LGSIL on Pap smear of cervix February, acute August 14, 2024 2:08pm Marijuana use acute August 142024 2:08pm acute August 14, 2024 2:08pm PTSD (post-traumatic stress disorder) acute August 14, 2 025 2:08pm Supervision of high-risk acute August 14 025 2:08pm Anxiety and depression acute [facility]20[facility] 2:51pm Celiac disease acute September 05, 2024 2:51pm Dichorionic diamniotic twin gestation acute September 05, 2024 2:51pm Family history of hemophilia acute September 05, 2024 2:51pm History of suicidal ideation acute September 05, 2024 2:51pm LGSIL on Pap smear of cervix February, acute September 05, 2024 2:51pm Marijuana use acute September 05, 2024 2:51pm acute September 05 2:51pm PTSD (post-traumatic stress disorder) acute September 05, 2024 2:51pm Supervision of high-risk acute September 05, 2024 2:51pm Abnormal glucose acute October 2:46pm Anemia affecting acute October 02, 2024 2:46pm Anxiety and depression acute 2024 2:46pm Celiac disease acute October 02, 2024 2:46pm Dichorionic diamniotic twin gestation acute October 02, 2024 2:46pm Family history of hemophilia acute October 02, 2024 2:46pm History of suicidal ideation acute October 02, 2024 2:46pm LGSIL on Pap smear of cervix February, acute October 02, 2024 2:46pm Marijuana use acute October 02, 2024 2:46pm acute October 02 2:46pm PTSD (post-traumatic stress disorder) acute October 02, 2024 2:46pm Supervision of high-risk acute October 02, 2024 2:46pm Abnormal glucose acute October 172024 3:20pm Anemia affecting acute October 17, 2024 3:20pm Anxiety and depression acute Ap 2024 3:20pm Celiac disease acute October 3:20pm Dichorionic diamniotic twin gestation acute October 17, 2024 3:20pm Family history of hemophilia acute October 17, 2024 3:20pm History of suicidal ideation acute October 17, 2024 3:20pm LGSIL on Pap smear of cervix February, acute October 17, 2024 3:20pm Marijuana use acute October 17, 2024 3:20pm acute October 17 3:20pm PTSD (post-traumatic stress disorder) acute October 17, 2024 3:20pm Supervision of high-risk acute October 17, 2024 3:20pm Abnormal glucose acute October 292024 2:47pm Anemia affecting acute October 29, 2024 2:47pm Anxiety and depression acute Ap 2024 2:47pm Celiac disease acute October 2:47pm Dichorionic diamniotic twin gestation acute October 29, 2024 2:47pm Family history of hemophilia acute October 29, 2024 2:47pm History of suicidal ideation acute October 29, 2024 2:47pm LGSIL on Pap smear of cervix February, acute October 29, 2024 2:47pm Marijuana use acute October 29, 2024 2:47pm acute October 29 2:47pm PTSD (post-traumatic stress disorder) acute October 29, 2024 2:47pm Supervision of high-risk acute October 29, 2024 2:47pm Abnormal glucose acute November 2:56pm Anemia affecting acute November 13, 2024 2:56pm Anxiety and depression acute Ma 2024 2:56pm Celiac disease acute November 13, 2024 2:56pm Dichorionic diamniotic twin gestation acute November 13, 2024 2 :56pm Family history of hemophilia acute November 13, 2024 2:56pm History of suicidal ideation acute November 13, 2024 2:56pm LGSIL on Pap smear of cervix February, acute November 13, 2024 2:56pm Marijuana use acute November 13, 2 025 2:56pm acute November 13, 2024 2:56pm PTSD (post-traumatic stress disorder) acute November 13, 2024 2 :56pm Supervision of high-risk acute November 13, 2024 2 :56pm Abnormal glucose acute November 9:12pm Anemia affecting acute November 14, 2024 9:12pm Celiac disease acute November 14, 2024 9:12pm Dichorionic diamniotic twin gestation acute November 14, 2024 9 :12pm Family history of hemophilia acute November 14, 2024 9:12pm acute November 14, 2024 9:12pm Status post section acute November 14, 2024 9:12pm Supervision of high-risk acute November 14, 2024 9 :12pm [facility] Work Phone: 1([phone]) 716-290302-11-2025 Evaluation note* Diagnosis Onset Date Resolution Status Admit Date Anxiety and depression acute [facility]2024 2:08pm Celiac disease acute August 042024 2:08pm Family history of hemophilia acute August 14, 2 025 2:08pm History of suicidal ideation acute August 14, 2 025 2:08pm LGSIL on Pap smear of cervix February, acute August 14, 2 025 2:08pm Marijuana use acute August 142024 2:08pm PTSD (post-traumatic stress disorder) acute August 14, 2 025 2:08pm Dichorionic diamniotic twin gestation inactive August 14, 2 025 2:08pm inactive August 14, 2024 2:08pm Supervision of high-risk inactive August 14, 2 025 2:08pm Anxiety and depression acute [facility] 2024 2:51pm Celiac disease acute September 05, 2024 2:51pm Family history of hemophilia acute September 05, 2024 2:51pm History of suicidal ideation acute September 05, 2024 2:51pm LGSIL on Pap smear of cervix February, acute September 05, 2024 2:51pm Marijuana use acute September 05, 2024 2:51pm PTSD (post-traumatic stress disorder) acute September 05, 2024 2:51pm Dichorionic diamniotic twin gestation inactive September 05, 2024 2:51pm inactive September 05 2:51pm Supervision of high-risk inactive September 05, 2024 2:51pm Anemia affecting acute October 02, 2024 2:46pm Anxiety and depression acute Ap 2024 2:46pm Celiac disease acute October 02, 2024 2:46pm Family history of hemophilia acute October 02, 2024 2:46pm History of suicidal ideation acute October 02, 2024 2:46pm LGSIL on Pap smear of cervix February, acute October 02, 2024 2:46pm Marijuana use acute October 02, 2024 2:46pm PTSD (post-traumatic stress disorder) acute October 02, 2024 2:46pm Abnormal glucose inactive October 2:46pm Dichorionic diamniotic twin gestation inactive October 02, 2024 2:46pm inactive October 02 2:46pm Supervision of high-risk inactive October 02, 2024 2:46pm Anemia affecting acute October 17, 2024 3:20pm Anxiety and depression acute Ap 2024 3:20pm Celiac disease acute October 3:20pm Family history of hemophilia acute October 17, 2024 3:20pm History of suicidal ideation acute October 17, 2024 3:20pm LGSIL on Pap smear of cervix February, acute October 17, 2024 3:20pm Marijuana use acute October 17, 2024 3:20pm PTSD (post-traumatic stress disorder) acute October 17, 2024 3:20pm Abnormal glucose inactive October 172024 3:20pm Dichorionic diamniotic twin gestation inactive October 17, 2024 3:20pm inactive October 17 3:20pm Supervision of high-risk inactive October 17, 2024 3:20pm Anemia affecting acute October 29, 2024 2:47pm Anxiety and depression acute Ap ril 2024 2:47pm Celiac disease acute October 2:47pm Family history of hemophilia acute October 29, 2024 2:47pm History of suicidal ideation acute October 29, 2024 2:47pm LGSIL on Pap smear of cervix February, acute October 29, 2024 2:47pm Marijuana use acute October 29, 2024 2:47pm PTSD (post-traumatic stress disorder) acute October 29, 2024 2:47pm Abnormal glucose inactive October 292024 2:47pm Dichorionic diamniotic twin gestation inactive October 29, 2024 2:47pm inactive October 29 2:47pm Supervision of high-risk inactive October 29, 2024 2:47pm Anemia affecting acute November 13, 2024 2:56pm Anxiety and depression acute 2024 2:56pm Celiac disease acute November 13, 2024 2:56pm Family history of hemophilia acute November 13, 2024 2 :56pm History of suicidal ideation acute November 13, 2024 2 :56pm LGSIL on Pap smear of cervix February, acute November 13, 2024 2 :56pm Marijuana use acute November 13, 2:56pm PTSD (post-traumatic stress disorder) acute November 13, 2024 2 :56pm Abnormal glucose inactive November 2:56pm Dichorionic diamniotic twin gestation inactive November 13, 2024 2 :56pm inactive November 13, 2024 2:56pm Supervision of high-risk inactive November 13, 2024 2 :56pm Anemia affecting acute November 14, 2024 9:12pm Celiac disease acute November 14, 2024 9:12pm Family history of hemophilia acute November 14, 2024 9 :12pm Status post section acute November 14, 2024 9 :12pm Abnormal glucose inactive November 9:12pm Dichorionic diamniotic twin gestation inactive November 14, 2024 9 :12pm inactive November 14, 2024 9:12pm Supervision of high-risk inactive November 14, 2024 9 :12pm Routine Follow-Up noneactive November 28, 2024 3 :28pm [employer] Work Phone: 1([phone] 547-271502-06-2025 Instructions* Patient Instructions* Alfreda David PA-C - 08/09/2024 5:02 PM EST Type of Remedy: Allergy Safe Medications to Take During Diphenhydramine (Benadryl ) Loratidine (Claritin ) Cetirizine (Zyrtec ) Type of Remedy: Cold and Flu Safe Medications to Take During Diphenhydramine (Benadryl)* Dextromethorphan (Robitussin )* Guaifenesin (Mucinex [plain]) * Vicks Vapor Rub mentholated cream Mentholated or non-mentholated cough drops (Sugar-free cough drops for gestational diabetes should not contain blends of herbs or aspartame) Pseudoephedrine ([Sudafed ] after 1st trimester) Acetaminophen (Tylenol )* Saline nasal drops or spray Warm salt/water gargle *Note: Do not take the SA (Sustained Action) form of these drugs or the Multi-Symptom form of these drugs. Do not use Nyquil due to its high alcohol content. Type of Remedy: Diarrhea Safe Medications to Take During Loperamide ([Imodium ] after 1st trimester, for 24 hours only) Type of Remedy: Constipation Safe Medications to Take During Methylcellulose fiber (Citrucel ) Docusate (Colace ) psyllium (Fiberall , Metamucil ) polycarbophil (FiberCon ) polyethylene glycol (MiraLAX )* *Occasional use only Type of Remedy: First Aid Ointment Safe Medications to Take During Bacitracin Neomycin/polymyxin B/bacitracin (Neosporin ) Type of Remedy: Headache Safe Medications to Take During Acetaminophen (Tylenol) Type of Remedy: Heartburn Safe Medications to Take During Aluminum hydroxide/magnesium carbonate (Gaviscon )* Famotidine (Pepcid AC ) Aluminum hydroxide/magnesium hydroxide (Maalox ) Calcium carbonate/magnesium carbonate (Mylanta ) Calcium carbonate (Titralac , Tums ) Ranitidine (Zantac ) *Occasional use only Type of Remedy: Hemorrhoids Safe Medications to Take During Phenylephrine/mineral oil/petrolatum (Preparation H ) Witch lee (Tucks pads or ointment) Type of Remedy: Insect repellant Safe Medications to Take During N,N-msayckq-ntyp-toluamide (DEET ) Type of Remedy: Nausea and Vomiting Safe Medications to Take During Diphenhydramine (Benadryl) Vitamin B6 Type of Remedy: Rashes Safe Medications to Take During Diphenhydramine cream (Benadryl) Hydrocortisone cream or ointment Oatmeal bath (Aveeno ) Type of Remedy: Sleep Safe Medications to Take During Diphenhydramine (Unisom SleepGels , Benadryl) Type of Remedy: Yeast Infection Safe Medications to Take During Miconazole (Monistat ) *Please note: No drug can be considered 100% safe to use during . documented in this encounterOhio State Health System02-06-2025 [id number]-[id number] (AGENT OF COVID-19) RNA: Not detected INFLUENZA A RNA: Not detected INFLUENZA B RNA: Not detected RESPIRATORY SYNCYTIAL VIRUS (RSV) RNA: Not detectedMercy Health St. Charles HospitalComment on above:Performed By: #### [id number] #### [facility] CLIA [id number] [address] [place] [address] OF [id number] NoteHNO ID: [id number] Author: ALFREDA DAVID PA-C Service: ? 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 No fevers., RSV, or strep pharyngitis. patient states that she has been exposed influenza. No known exposure to COVID-19 Review of Systems Constitutional: Negative for chills, diaphoresis and fever. HENT: Positive for sore throat. Negative for congestion. Eyes: Negative for discharge and redness. Respiratory: Positive for cough. Skin: Negative for rash and wound. Neurological: Negative for weakness and headaches. All other systems reviewed and are negative. Objective BP 103/60 Pulse (!) 146 Temp 37 ?C (98.6 ?F) Resp 16 Wt 67.4 kg (148 lb 11.2 oz) LMP 03/10/2024 (Exact Date) SpO2 97% BMI 26.34 kg/m? Physical Exam Vitals reviewed. Constitutional: General: She is not in acute distress. Appearance: Normal appearance. She is normal weight. She is not ill-appearing or toxic-appearing. Comments: The patient appears to be non-toxic, in no acute distress, and resting comfortably on the table. HENT: Head: Normocephalic and atraumatic. Right Ear: Tympanic membrane, ear canal and external ear normal. Left Ear: Tympanic membrane, ear canal and external ear normal. Nose: Nose normal. Mouth/Throat: Mouth: Mucous membranes are moist. Pharynx: Oropharynx is clear. No oropharyngeal exudate or posterior oropharyngeal erythema. Eyes: Extraocular Movements: Extraocular movements intact. Cardiovascular: Rate and Rhythm: Normal rate and regular rhythm. Heart sounds: Normal heart sounds. No murmur heard. No friction rub. No gallop. Pulmonary: Effort: Pulmonary effort is normal. No respiratory distress. Breath sounds: Normal breath sounds. No wheezing. Musculoskeletal: General: Normal range of motion. Cervical back: Normal range of motion. Skin: General: Skin is warm and dry. Findings: No erythema or rash. Neurological: General: No focal deficit present. Mental Status: She is alert and oriented to person, place, and time. Mental status is at baseline. Psychiatric: Mood and Affect: Mood normal. Behavior: Behavior normal. Thought Content: Thought content normal. Assessment and Plan Normal physical exam. Suspect patient symptoms are due to viral infection. Patient tested for COVID-19, influenza, and RSV. Advised to take Mucinex and use Flonase. Advised to follow-up with OB as needed for any new or worsening symptoms. ASSESSMENT/PLAN: 1. Viral URI - ICD9: 465.9, ICD10: J06.9 (primary diagnosis) - Discussed viral etiology and rationale for treatment. - Symptomatic treatment with prn analgesia - Supportive care with fluids and rest 2. Acute cough - ICD9: 786.2, ICD10: R05.1 - COVID AND INFLUENZA A/B AND RSV PCR, ROUTINE 3. Sore throat - ICD9: 462, ICD10: J02.9 - COVID AND INFLUENZA A/B AND RSV PCR, ROUTINE 4. Exposure to influenza - ICD9: V01.79, ICD10: Z20.828 - COVID AND INFLUENZA A/B AND RSV PCR, ROUTINE Medical Decision Making: Problems: Low: Acute, uncomplicated illness or injury Risk: Minimal: Minimal risk from testing/treatment Moderate: Drug management Medical Decision Making Level: 3 - Low I spent a total of 20 minutes on the date of the service which included preparing to see the patient, [id number] patient care, completing clinical documentation, performing a medically appropriate examination, counseling and educating the patient/family/caregiver, and ordering medications, tests, or procedures. [facility]02-06-2025 History of Present illness Narrative* Alfreda David PA-C - 08/09/2024 4:56 PM EST Subjective Darryl Bui is a 22 week 24 year old female with a past medical history of depressionwho [facility] for evaluation of cough and sore throat that began yesterday. Nofevers., RSV, or strep pharyngitis. patient states that she has been exposed influenza. No known exposure to COVID-19 Review of Systems Constitutional: Negative for chills, diaphoresis and fever. HENT: Positive for sore throat. Negative for congestion. Eyes: Negative for discharge and redness. Respiratory: Positive for cough. Skin: Negative for rash and wound. Neurological: Negative for weakness and headaches. All other systems reviewed and are negative. Objective BP 103/60 Pulse (!) 146 Temp 37 C (98.6 F) Resp 16 Wt 67.4 kg (148 lb 11.2 oz) LMP 03/10/2024 (Exact Date) SpO2 97% BMI 26.34 kg/m Physical Exam Vitals reviewed. Constitutional: General: She is not in acute distress. Appearance: Normal appearance. She is normal weight. She is not ill-appearing or toxic-appearing. Comments: The patient appears to be non-toxic, in no acute distress, and resting comfortably on thetable. HENT: Head: Normocephalic and atraumatic. Right Ear: Tympanic membrane, ear canal and external ear normal. Left Ear: Tympanic membrane, ear canal and external ear normal. Nose: Nose normal. Mouth/Throat: Mouth: Mucous membranes are moist. Pharynx: Oropharynx is clear. No oropharyngeal exudate or posterior oropharyngeal erythema. Eyes: Extraocular Movements: Extraocular movements intact. Cardiovascular: Rate and Rhythm: Normal rate and regular rhythm. Heart sounds: Normal heart sounds. No murmur heard. No friction rub. No gallop. Pulmonary: Effort: Pulmonary effort is normal. No respiratory distress. Breath sounds: Normal breath sounds. No wheezing. Musculoskeletal: General: Normal range of motion. Cervical back: Normal range of motion. Skin: General: Skin is warm and dry. Findings: No erythema or rash. Neurological: General: No focal deficit present. Mental Status: She is alert and oriented to person, place, and time. Mental status is at baseline. Psychiatric: Mood and Affect: Mood normal. Behavior: Behavior normal. Thought Content: Thought content normal. Assessment and Plan Normal physical exam. Suspect patient symptoms are due to viral infection. Patient tested for COVID-19, influenza, and RSV. Advised to take Mucinex and use Flonase. Advised to follow-up with OB as needed for any new or worsening symptoms. ASSESSMENT/PLAN: 1. Viral URI - ICD9: 465.9, ICD10: J06.9 (primary diagnosis) - Discussed viral etiology and rationale for treatment. - Symptomatic treatment with prn analgesia - Supportive care with fluids and rest 2. Acute cough - ICD9: 786.2, ICD10: R05.1 - COVID & INFLUENZA A/B & RSV PCR, ROUTINE 3. Sore throat - ICD9: 462, ICD10: J02.9 - COVID & INFLUENZA A/B & RSV PCR, ROUTINE 4. Exposure to influenza - ICD9: V01.79, ICD10: Z20.828 - COVID & INFLUENZA A/B & RSV PCR, ROUTINE Medical Decision Making: Problems: Low: Acute, uncomplicated illness or injury Risk: Minimal: Minimal risk from testing/treatment Moderate: Drug management Medical Decision Making Level: 3 - Low I spent a total of 20 minutes on the date of the service which included preparing to see the patient, [id number] patient care, completing clinical documentation, performing a medically appropriate examination, counseling and educating the patient/family/caregiver, and ordering medications, tests,or procedures. Alfreda David PA-C documented in this encounterLinda [place] [address]-06-2025 Evaluation note* Diagnosis Onset Date Resolution Status Admit Date Anxiety and depression acute 2024 2:16pm Celiac disease acute July 2:16pm Dichorionic diamniotic twin gestation acute July 09 2:16pm Family history of hemophilia acute July 09, 2024 2:16pm History of suicidal ideation acute July 09, 2024 2:16pm LGSIL on Pap smear of cervix February, acute July 09, 2024 2:16pm Marijuana use acute July 2:16pm acute July 09, 2 025 2:16pm PTSD (post-traumatic stress disorder) acute July 09 2:16pm Supervision of high-risk acute July 09 2:16pm Anxiety and depression acute [facility]2024 2:08pm Celiac disease acute August 042024 2:08pm Dichorionic diamniotic twin gestation acute August 14, 2 025 2:08pm Family history of hemophilia acute August 14, 2024 2:08pm History of suicidal ideation acute August 14, 2024 2:08pm LGSIL on Pap smear of cervix February, acute August 14, 2024 2:08pm Marijuana use acute August 142024 2:08pm acute August 14, 2024 2:08pm PTSD (post-traumatic stress disorder) acute August 14, 2 025 2:08pm Supervision of high-risk acute August 14, 2 025 2:08pm Anxiety and depression acute [facility] 2024 2:51pm Celiac disease acute September 05, 2024 2:51pm Dichorionic diamniotic twin gestation acute September 05, 2024 2:51pm Family history of hemophilia acute September 05, 2024 2:51pm History of suicidal ideation acute September 05, 2024 2:51pm LGSIL on Pap smear of cervix February, acute September 05, 2024 2:51pm Marijuana use acute September 05, 2024 2:51pm acute September 05 2:51pm PTSD (post-traumatic stress disorder) acute September 05, 2024 2:51pm Supervision of high-risk acute September 05, 2024 2:51pm Abnormal glucose acute October 2:46pm Anemia affecting acute October 02, 2024 2:46pm Anxiety and depression acute Ap 2024 2:46pm Celiac disease acute October 02, 2024 2:46pm Dichorionic diamniotic twin gestation acute October 02, 2024 2:46pm Family history of hemophilia acute October 02, 2024 2:46pm History of suicidal ideation acute October 02, 2024 2:46pm LGSIL on Pap smear of cervix February, acute October 02, 2024 2:46pm Marijuana use acute October 02, 2024 2:46pm acute October 02 2:46pm PTSD (post-traumatic stress disorder) acute October 02, 2024 2:46pm Supervision of high-risk acute October 02, 2024 2:46pm [facility] Work Phone: 1(305) 983-104412-05-2024 Evaluation note* Diagnosis Onset Date Resolution Status Admit Date Anxiety and depression acute De 2023 3:34pm Celiac disease acute June 072023 3:34pm Family history of hemophilia acute June 07, 2024 3:34pm History of suicidal ideation acute June 07, 2024 3:34pm LGSIL on Pap smear of cervix February, acute June 07, 2024 3:34pm Marijuana use acute June 3:34pm acute June 07, 2024 3:34pm PTSD (post-traumatic stress disorder) acute June 07 3:34pm Supervision of high-risk acute June 07 3:34pm Twin inactive June 072023 3:34pm Anxiety and depression acute [facility] 2024 2:16pm Celiac disease acute July 2:16pm Dichorionic diamniotic twin gestation acute July 09 2:16pm Family history of hemophilia acute July 09, 2024 2:16pm History of suicidal ideation acute July 09, 2024 2:16pm LGSIL on Pap smear of cervix February, acute July 09, 2024 2:16pm Marijuana use acute July 2:16pm acute July 09, 2:16pm PTSD (post-traumatic stress disorder) acute July 09 2:16pm Supervision of high-risk acute July 09 2:16pm Anxiety and depression acute Fe bruary 2024 2:08pm Celiac disease acute August 042024 2:08pm Dichorionic diamniotic twin gestation acute August 14 025 2:08pm Family history of hemophilia acute August 14, 2024 2:08pm History of suicidal ideation acute August 14, 2024 2:08pm LGSIL on Pap smear of cervix February, acute August 14, 2024 2:08pm Marijuana use acute August 142024 2:08pm acute August 14, 2024 2:08pm PTSD (post-traumatic stress disorder) acute August 14, 2 025 2:08pm Supervision of high-risk acute August 14 025 2:08pm Anxiety and depression acute [facility] 2024 2:51pm Celiac disease acute September 05, 2024 2:51pm Dichorionic diamniotic twin gestation acute September 05, 2024 2:51pm Family history of hemophilia acute September 05, 2024 2:51pm History of suicidal ideation acute September 05, 2024 2:51pm LGSIL on Pap smear of cervix February, acute September 05, 2024 2:51pm Marijuana use acute September 05, 2024 2:51pm acute September 05 2:51pm PTSD (post-traumatic stress disorder) acute September 05, 2024 2:51pm Supervision of high-risk acute September 05, 2024 2:51pm [facility] Work Phone: 1(695) 699-303511-05-2024 [id number] (AGENT OF COVID-19) RNA: Not detected INFLUENZA A RNA: Not detected INFLUENZA B RNA: Not detected RESPIRATORY SYNCYTIAL VIRUS (RSV) RNA: Not detectedMercy Health West HospitalComment on above:Performed By: #### [id number] #### [facility] CLIA [id number] [address] [place] [address] OF [id number] Note. MICRO - Microbiology PROCEDURE: Urine Culture [*1] SOURCE: Urine, Clean Catch BODY SITE: COLLECTED DATE/TIME: 12/02/2023 11:07 EDT RECEIVED DATE/TIME: 12/02/2023 20:38 EDT START DATE/TIME: 12/02/2023 20:38 EDT FREE TEXT SOURCE: FINAL REPORTS Final Report [] Verified Date/Time/Personnel: 12/04/2023 08:12 EDT >100,000 cfu/ml Multiple bacterial morphotypes present. Probable Contamination. Suggest recollection if clinically indicated. PRELIMINARY REPORTS Preliminary Report [] Verified Date/Time/Personnel: 12/03/2023 11:22 EDT No growth to date Performing Locations *1: This test was performed at: [facility], [address] [place] [address], [id number] , [facility] ([place])12-22-2022 History of Present illness Narrative* Juliet Ponce APRN.[facility] - 12/22/2022 1:36 PM EDT Images from the original note were not included. Subjective Patient came in with complaints of left upper tooth pain. Patient says it started last night seems to be getting worse. Patient says she does have a tooth in the area that was supposed to be pulled 2years ago but has not been able to since she has been breast-feeding. Patient denies any fever nausea vomiting. The history is provided by the patient. No pomology teacher was used. Review of Systems Constitutional: Negative. Skin: Negative. Objective Physical Exam Constitutional: Appearance: Normal appearance. HENT: Head: Comments: Patient's pain is in the area marked above. No swelling noted no redness or drainage noted inside the mouth. Pulmonary: Effort: Pulmonary effort is normal. PAST MEDICAL HISTORY Diagnosis Date Anxiety and depression on celexa Breast mass 2016 Celiac disease Gastroesophageal reflux disease Migraine headache Migraines Psychiatric disorder depression PAST SURGICAL HISTORY Procedure Laterality Date BIOPSY BREAST OPEN INCISIONAL Left 10/30/2018 fibrocystic change with numerous apocrine cysts, ductal cysts, usual ductal hyperplasia, multiple benign intraductal papillomas and duct ectasia NONE US BREAST NEEDLE CORE BIOPSY LT Left 2017 fibrocystic changes ALLERGIES Amoxicillin, Penicillins, Gluten, and Pomegranate MEDICATIONS cephALEXin (KEFLEX) 500 mg capsule Take 1 capsule by mouth four times daily for 5 days. aspirin, enteric coated (ASPIRIN, ENTERIC COATED) 81 mg EC tablet Take 81 mg by mouth once daily. (Patient not taking: Reported on 12/22/2022) sertraline (ZOLOFT) 100 mg tablet Take 100 mg by mouth once daily. (Patient not taking: No sig reported) vit/iron fum/folic ac ( VITAMIN ORAL) Take by mouth once daily. (Patient not taking: Reported on 12/22/2022) FAMILY HISTORY Problem Relation Age of Onset other (epilepsie [Other]) Father Social History Tobacco Use Smoking status: Never Smokeless tobacco: Never Substance Use Topics Alcohol use: No Drug use: No ASSESSMENT/PLAN: 1. Pain, dental - ICD9: 525.9, ICD10: K08.89 - CEPHALEXIN 500 MG CAPSULE Patient was educated about proper use of medication and supportive therapies. Patient was okay withthis care plan and will follow-up with her dentist. Juliet Ponce APRN.[facility] documented in this encounterOhio State Health System04-16-[address] Hinds [facility] October 17, 2022 9:57am Note Date/Time October 17, 2022 9:5 7am [facility] Medical Records Department [address] [place] [address] Progress Note - OBGYN 10/17/22 0955 MR#: [id number] Acct: [id number] Name: DARRYL BUI Rep #:[id number] : 2000 22 From: Ramandeep Ferguson DO PCP: Dr. Fabiola Bearden DO Status:ADM IN Location: [place] [id number] Subjective Subjective Patient doing well without complaints. Tolerating PO. Ambulating and voiding without difficulty. Feeding well. Denies chest pain, shortness of breath, calf pain/swelling, fevers, chills, lightheadedness. She wants to go home today if possible Objective Data Objective Data Vital Signs: Vital Signs Temp Pulse Resp BP Pulse Ox O2 Del Method 98.1 F 93 16 112/72 97 Room Air 10/17/22 07:30 10/17/22 07:40 10/17/22 07:30 10/17/22 07:40 10/17/22 07:30 10/17/22 07:30 Oxygen Delivery Method Room Air Weight: 168 lb Body Mass Index (BMI) 29.7 Intake & Output: Intake and Output for Last 24 Hours 10/15/22 10/16/22 10/17/22 23:59 23:59 23:59 Intake Total 590.83 / 590.83 Output Total 650 / 650 Balance -59.17 / -59.17 Lab / Micro Data Result Diagrams: 10/16/22 10:00 Labs: Laboratory Results - last 24 hr 10/16/22 10:00: WBC 13.7 H, RBC 4.34, Hgb 13.2, Hct 38.7, MCV 89.2, MCH 30.4, MCHC 34.1, RDW Std Deviation 47.3 H, RDW Coeff of Daryl 14.6, Plt Count 185, MPV 11.6, Immature Gran % (Auto) 1.200 H, Neut % (Auto) 84.1 H, Lymph % (Auto) 7.7 L, [place] % (Auto) 6.4, Eos % (Auto) 0.2, Baso % (Auto) 0.4, Absolute Neuts (auto) 11.5 H, Absolute Lymphs (auto) 1.05, Nucleated RBC % 0 10/16/22 10:00: Blood Type O POSITIVE, Antibody Screen NEGATIVE 10/16/22 10:00: Syphilis Total Ab Non-reactive ROS Constitutional Constitutional: Denies chills, fatigue, fever(s), poor appetite or weakness Eyes Eyes: Denies blurry vision, change in vision, seeing flashes or spots in vision ENT HEENT: Denies dizziness, headache(s), loss taste/smell or sore throat Cardiovascular Cardiovascular: Denies chest pain, dizziness, dyspnea, irregular heart rhythm, palpitations or rapid heart rate Respiratory/Chest Respiratory/Chest: Denies chest tightness, cough, dyspnea or breast pain Gastrointestinal Gastrointestinal: Denies abdominal pain, constipation or vomiting Genitourinary Genitourinary: Denies dysuria or flank pain Musculoskeletal Musculoskeletal: Denies difficulty walking, joint pain, limited range of motion or numbness Neurologic Neurologic: Denies abnormal movements, abnormal speech, dizziness, numbness, seizure-like activity or syncope Psychiatric Psychiatric: Denies anxiety, behavioral changes, change in appetite, confusion, depression or suicidal thoughts Physical Exam Const alert, oriented x3 and no apparent distress General Appearance: cooperative and comfortable Resp normal respiratory effort Cardio regular rate GI normal to inspection, nondistended, normoactive bowel sounds GI Narrative: uterus is firm below umbilicus Palpation: soft Back/Spine no CVA tenderness and thoraco-lumbar ROM normal Extremity normal to inspection, no clubbing, cyanosis or edema, no calf tenderness and no pedal edema Psych mental status grossly normal, thought process normal, cooperative, affect normal, speech normal, activity/motor behavior normal, denies homicidal ideationand denies suicidal ideation Assessment & Plan (1) Status post vaginal delivery: COMMENT: baby girl Ember- 10/16/22 JV PLAN: Plan s/p PPD # 1 1. routine post delivery care 2. breast feeding- support given 3. rh positive 4. rubella immune 5. dc to home today when peds clears baby 10/17/22 0957 <Electronically signed by Ramandeep Ferguson DO> Cosigner Signature (if applicable): CC: ~ Signed [facility] Work Phone: 1(983) 229-258204-16-[address] Hinds [facility] October 17, 2022 9:55am Note Date/Time October 17, 2022 9:5 4am [facility] Medical Records Department [address] [place] [id number] Instructions for Home/Discharge Instructions 10/17/22 0952 MR#: [id number] Acct: [id number] Name: DARRYL BUI Rep #:[id number] : 2000 22 From: Ramandeep Ferguson DO PCP: Dr. Fabiola Bearden DO Status:ADM IN Discharge Instructions Follow Up Care Test Results: Test results from this visit will be discussed in further detail at your follow- up appointment, if applicable. Discharge Plan Admission Admit Date/Time: 10/16/22 09:54 Primary Reason for Your Visit: vaginal delivery Attending Provider: Ramandeep Ferguson Primary Care Provider: Fabiola Bearden Discharge Orders/Prescriptions Prescriptions: New naproxen 500 mg tablet 500 mg PO BID PRN (Reason: pain) Qty: 30 0RF Continued PNV-DHA 27 mg iron-1 mg -300 mg capsule 1 cap PO DAILY potassium chloride 20 mEq tablet extended release 20 meq PO BID Discontinued Low-Dose Aspirin 81 mg Tablet 81 mg PO DAILY ondansetron [ondansetron] 4 mg tablet,disintegrating 8 mg PO Q8H PRN PRN (Reason: Nausea) Qty: 20 0RF Referrals / Follow Up: Fabiola Bearden DO [Primary Care Provider] - Disposition Disposition (needs filled in before D/C Order can be placed): Home, Self Care 10/17/22 0955<Electronically signed by Ramandeep Ferguson DO>Ramandeep Ferguson DO CC: Dr. Fabiola Bearden, ~ Signed [facility] Work Phone: 1([phone]) 953-118104-15-[address] Hinds [facility] October 16, 2022 11:16am Note Date/Time October 16, 2022 11: 16am [facility] Medical Records Department [address] [place] [address] Progress Note 10/16/221112 MR#: [id number] Acct: [id number] Name: DARRYL BUI Rep #:[id number] : 2000 22 From: Ramandeep Ferguson DO PCP: Dr. Fabiola Bearden DO Status:ADM IN [facility] Note pt consents to membrane rupture. She is still smiling and tolerating labor well. current tracing: FHT: Moderate variability reactive no decelerations category I tracing [place]: q 2-5 min Contractions cx: 7.5/90/0 membranes ruptured with clear fluid return. head well engaged reviewed tracing abnormalities since last note: no change A/P: active labor- continue conservative management. bringing in nitrous now for pain control. 10/16/22 1116 <Electronically signed by Ramandeep Ferguson DO> Ramandeep Ferguson DO Cosigner Signature (if applicable): CC: ~ Signed [facility] Work Phone: 1([phone]) 101-834504-15-2023 History and physical note Author Dr. Hinds [facility] October 16, 2022 11:13am Note Date/Time October 16, 2022 11: 13am [facility] Medical Records Department [address] [facility] [place] [address] H&P Exam - [employer]STRUMENTAL [employer]IC TE[employer]ER 10/16/22 1111 MR#: [id number] Acct: [id number] Name: DARRYL BUI Rep #:[id number] : 2000 22 From: Ramandeep Ferguson DO PCP: Dr. Fabiola Bearden, DO Status:ADM IN Location: [id number] HPI - General General Date of Admission: 10/16/22 HPI Narrative DARRYL BUI, is a 22 Fy/o @ 38 weeks 6 days who presents to L&D in active labor. The nurse that checked her informed me that she is 6-7 cm dilated with bulging membranes. She is GBS negative and plans to proceed with labor withnitrous gas for pain management. Maternal Data Information BERNADETTE Calculator Estimated Delivery Date Method Current WG Current Estimate 10/24/22 LMP (Certain) 38w 6d Other Estimates 10/20/22 Ultrasound #1 39w 3d PFSH PFSH Medical History (Updated 10/16/22 @ 10:28 by Marga Moore) Abnormal glucose tolerance affecting , antepartum Anxiety and depression Autoimmune disease Cystitis Depression Family history of hemophilia Headache History of suicidal ideation Migraine Pelvic pain Supervision of high-risk Trauma UTI (urinary tract infection) Home Medications multivitamin no.47-iron fum 27 mg-folate no.1 1 mg-dha 300 mg capsule (PNV-DHA)1 cap PO DAILY 03/19/22 [History Last Taken 08/10/22 08:00 1 tab] aspirin 81 mg tablet 81 mg PO DAILY covid positive this 08/10/22 [History Last Taken 08/10/22 08:00 81 mg] ondansetron 4 mg disintegrating tablet 8 mg PO Q8H PRN PRN Nausea #20 tabs 08/12/22 [Rx Last Taken Unknown] potassium chloride 20 mEq tablet,extended release 20 meq PO BID low potassium 10/16/22 [History Last Taken Unknown] Allergy/AdvReac Type Severity Reaction Status Date / Time gluten Allergy Severe Abd Verified 10/16/22 10:02 cramps/diarrhea amoxicillin Allergy Mild Rash Verified 10/16/22 10:02 penicillin G Allergy Mild Rash Verified 10/16/22 10:02 pomegranate Allergy Anaphylaxis Verified 10/16/22 10:02 Family History Mother Arthritis Fibromyalgia Father Epilepsy Surgical History H/O breast surgery Social History adopted: No household members: children number of children: 1 current occupational status: employed 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 current occupational exposures/hazards: No pets and animals: No history of recent travel: No sexually active: Yes Smoking Status: Never smoker alcohol intake: never substance use type: does not use diet: gluten free well-balanced diet: daily or most days caffeine: Yes Type: carbonated beverages Number of servings: 1 and coffee eating out: 1-3 times/week during the past year weight has: remained stable what type of physical activity do you participate in: walking frequency: daily kyra/tenriism: Presybeterian seatbelt use: always do you feel safe at home: Yes additional social history: Father- Fabiola (Ex) History 3 Elective abortions Hx Para 1 Spontaneous abortions 1 Hx # Term Pregnancies 1 Ectopic pregnancies Hx # Pregnancies Multiple births # of living children 1 Past Pregnancies Del. Date Name GA/Weeks Outcome Route Bth Weight Gen Labor Lgth Anesthesia Del Locatn Provider FOB Unknown 2017 miscarriage spontaneous 03/15/20 [place] 39 live - full term Female epidu [facility] Delivery Date: 03/15/20 Last Updated by: Shital Loving no complications Visit Details Expected Delivery Route/Plan Labor Preferences- CB/BF classes: [] labor support person: mom- FOB not involved, sister in law, FOB sister labor intervention preferences: [] pain management options preferred: [] cut cord/dad catch: [] : [] PP control planned: [] discussed possible routes of delivery and associated risks: [] special requests: [] Plans Covid status: discussed Flu vaccine: discussed Tdap vaccine: declined Rhogam: na LARC form signed: declined movement and labor precautions reviewed. Problem list reviewed and updated with the most current plan of care details and appropriate orders placed. Relevant counseling for the gestational age provided. Continue routine care and follow up unless otherwise noted in visit notes/problem list details OB Flowsheet Initial Weight: Not Recorded Date -?-?-?-?-?-?-?-?-?-?-?-?- EGA Weight BP Urine Prot -?-?-?-?-?-?-?-?-?-?-?-?- Glucose FHR FuHt Pres Dilation -?-?-?-?-?-?-?-?-?-?-?-?- Effaced St Visit Note 03/23/22 -?-?-?-?-?-?-?-?-?-?-?-?- 9w 2d 130 lb 2 oz 123/77 -?-?-?-?-?-?-?-?-?-?-?-?- 178 -?-?-?-?-?-?-?-?--?-?-?-?- JV- CRL consiste nt with LMP. 04/16/22 -?-?-?-?-?-?-?-?-?-?-?-?- 12w 5d 129 lb 97/67 -?-?-?-?-?-?-?-?-?-?-?-?- 155 -?-?-?-?-?-?-?-?-?-?-?-?- SM- no vb lof cr amping 05/14/22 -?-?-?-?-?-?-?-?-?-?-?-?- 16w 5d 134 lb 112/68 Negative -?-?-?-?-?-?-?-?-?-?-?-?- Negative 150 -?-?-?-?-?-?-?-?-?-?-?-?- JV- no complaint s today other than financial difficulties due to having to call off work for her baby's RSV this week. has anatomy scan scheduled. 06/09/22 -?-?-?-?-?-?-?-?-?-?-?-?- 20w 3d 140 lb 8 oz 97/53 Nega tive -?-?-?-?-?-?-?-?-?-?-?-?- Negative 147 -?-?-?-?-?-?-?-?-?--?-?-?- LC- no vb/crampi ng. normal anatomy scan. no concerns. 07/08/22 -?-?-?-?-?-?-?-?-?-?-?-?- 24w 4d 149 lb 8 oz 113/70 Nega tive -?-?-?-?-?-?-?-?-?-?--?-?- Negative 153 -?-?-?-?-?-?-?-?-?-?-?-?- JV- pt complains of vaginal discharge and odor. cultures collected and pt has obvious yeast on exam. 08/16/22 -?-?-?-?-?-?-?-?-?-?-?-?- 30w 1d 155 lb 130/74 Negative -?-?-?-?-?-?-?-?-?-?-?-?- Negative 140 30 -?-?-?-?-?-?-?-?-?-?-?-?- SM- no vb crampi ng ctx no lof co pelvic pain 08/20/22 -?-?-?-?-?-?-?-?-?-?-?-?- 30w 5d 159 lb 4 oz 96/64 Nega tive -?-?-?-?-?-?-?-?-?-?-?-?- Negative 140 31 -?-?-?-?-?-?-?-?-?-?-?-?- SM- no vb lof go od fm n oregular ctx 08/31/22 -?-?-?-?-?-?-?-?-?-?-?-?- 32w 2d 162 lb 2 oz 112/75 Nega tive -?-?-?-?-?-?-?-?-?-?-?-?- Negative 125 32 -?-?-?-?-?-?-?-?-?-?-?-?- JV- no lof ,vagi nal bleeding, or dec fm, ultrasound showed 44th%. 09/17/22 -?-?-?-?-?-?-?-?-?-?-?-?- 34w 5d 163 lb 106/71 -?-?-?-?-?-?-?-?-?-?-?-?- 125 34 -?-?-?-?-?-?-?-?-?-?-?-?- SM- no vb lof go od fm no reguar ctx 10/01/22 -?-?-?-?-?-?-?-?-?-?-?-?- 36w 5d 166 lb 6 oz 114/80 Nega tive -?-?-?-?-?-?-?-?-?-?-?-?- Negative 130 36 -?-?-?-?-?-?-?-?-?-?-?-?- SM- no vb lof go od fm no regular ctx 10/08/22 -?-?-?-?-?-?-?-?-?-?-?-?- 37w 5d 169 lb 113/71 Negative -?-?-?-?-?-?-?-?-?-?-?-?- Negative 130 37 Cephalic 2 .5 -?-?-?-?-?-?-?-?-?-?-?-?- 60 -2 SM- no vb lof good fm no regular ctx 10/15/22 -?-?-?-?-?-?-?-?-?-?-?-?- 38w 5d 169 lb 6 oz 107/75 Nega tive -?-?-?-?-?-?-?-?-?-?-?-?- Negative 143 37 Cephalic 3 -?-?-?-?-?-?-?-?-?-?-?-?- 80 -2 JV- no lof , v aginal bleeding, or dec fm ROS Constitutional Constitutional: Denies change in weight, fatigue, fever(s), headache(s), poor appetite or weakness Eyes Eyes: Denies blurry vision, change in vision, seeing flashes or spots in vision ENT HEENT: Denies dizziness, headache(s), loss taste/smell or sore throat Cardiovascular Cardiovascular: Denies chest pain, dizziness, dyspnea, irregular heart rhythm, leg edema, palpitations, rapid heart rate or vomiting Respiratory/Chest Respiratory/Chest: Denies chest tightness, cough, dyspnea or breast pain Gastrointestinal Gastrointestinal: Denies abdominal pain, anorexia, constipation, cramping, diarrhea, hemorrhoids, vomiting or weight changes Genitourinary Genitourinary: Denies dysuria, flank pain, genital lesions, genital pain, urinary frequency or urinary urgency Musculoskeletal Musculoskeletal: Denies back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 Diagnosis Date Anxiety and depression on celexa Breast mass 2016 Celiac disease Gastroesophageal reflux disease Migraine headache Migraines Psychiatric disorder depression ALLERGIES Amoxicillin, Penicillins, and Gluten MEDICATIONS Current Outpatient Medications Medication Sig vit/iron fum/folic ac ( VITAMIN ORAL) Take by mouth once daily. sertraline (ZOLOFT) 100 mg tablet Take 100 mg by mouth once daily. (Patient not taking: No sig reported) No current facility-administered medications for this visit. Medications and allergies reviewed by this provider. SOCIAL HISTORY Social History Tobacco Use Smoking status: Never Smokeless tobacco: Never Substance Use Topics Alcohol use: No Drug use: No REVIEW OF SYSTEMS Review of Systems ROS: constitutional-neg, heent-neg, heart-neg, respiratory-neg, skin-neg, lymph- neg, neuro-neg, psych-neg- All systems neg except as noted above in HPI. OBJECTIVE: Pulse 97 Temp 36.5 C (97.7 F) Wt 65 kg (143 lb 6.4 oz) LMP 01/17/2022 SpO2 98% BMI 25.40 kg/m . Vital signs reviewed by this provider. Physical Exam Vitals reviewed. Constitutional: General: She is not in acute distress. Appearance: Normal appearance. She is well-developed and normal weight. She is not ill-appearing, toxic-appearing or diaphoretic. HENT: Head: Normocephalic and atraumatic. No right periorbital erythema or left periorbital erythema. Salivary Glands: Right salivary gland is not diffusely enlarged or tender. Left salivary gland is not diffusely enlarged or tender. Right Ear: Tympanic membrane, ear canal and external ear normal. Left Ear: Tympanic membrane, ear canal and external ear normal. Nose: Nose normal. No congestion or rhinorrhea. Right Sinus: No maxillary sinus tenderness or frontal sinus tenderness. Left Sinus: No maxillary sinus tenderness or frontal sinus tenderness. Mouth/Throat: Lips: No lesions. Mouth: Mucous membranes are moist. No oral lesions. Dentition: No gum lesions. Tongue: No lesions. Tongue does not deviate from midline. Palate: No mass and lesions. Pharynx: Oropharynx is clear. No pharyngeal swelling, oropharyngeal exudate, posterior oropharyngeal erythema or uvula swelling. Tonsils: No tonsillar exudate or tonsillar abscesses. Eyes: General: Lids are normal. No scleral icterus. Right eye: No discharge. Left eye: No discharge. Extraocular Movements: Extraocular movements intact. Right eye: Normal extraocular motion and no nystagmus. Left eye: Normal extraocular motion and no nystagmus. Conjunctiva/sclera: Conjunctivae normal. Pupils: Pupils are equal, round, and reactive to light. Cardiovascular: Rate and Rhythm: Normal rate and regular rhythm. Heart sounds: Normal heart sounds. Pulmonary: Effort: Pulmonary effort is normal. Breath sounds: Normal breath sounds and air entry. Musculoskeletal: Cervical back: Full passive range of motion without pain. No spinous process tenderness or musculartenderness. Lymphadenopathy: Head: Right side of head: No submental, submandibular, tonsillar, preauricular or posterior auricular adenopathy. Left side of head: No submental, submandibular, tonsillar, preauricular or posterior auricular adenopathy. Cervical: No cervical adenopathy. Skin: General: Skin is warm. Capillary Refill: Capillary refill takes less than 2 seconds. Findings: No rash. Neurological: General: No focal deficit present. Mental Status: She is alert and oriented to person, place, and time. Cranial Nerves: Cranial nerves 2-12 are intact. No cranial nerve deficit or facial asymmetry. Coordination: Romberg sign negative. Gait: Gait is intact. Psychiatric: Attention and Perception: Attention normal. Behavior: Behavior is cooperative. ASSESSMENT/PLAN: 1. Low grade fever - ICD9: 780.60, ICD10: R50.9 (primary diagnosis) 2. Nausea - ICD9: 787.02, ICD10: R11.0 3. Headache, unspecified headache type - ICD9: 784.0, ICD10: R51.9 X 2 days Possible viral syndrome 20 weeks - COVID WITH FLUA+B, ROUTINE - Tylenol - Increased fluids - Benadryl - Unisom (Benadryl x Vit B) OTC for nasuea Follow up with your PCP/OB BARROS worsens, changes, or is persisting- go to ER Call PCP if sx worsen or no better. If symptoms worsen, or new symptoms develop go to ER. If you have worsening of breathing or breathing changes- go to ER. If you have persistent fever unrelieved by Tylenol/Motrin- go to the ER. Discussed all red flag symptoms and reasons to go to ER No further questions. Follow up as needed. Barriers to learning: none. The patient verbalizes understanding and is in agreement with plan of care. Darryl Alejo PA-C Medical Decision Making: Problems: Moderate: Acute illness with systemic symptoms Data: Unique test(s) ordered: 1 Risk: Low: Low risk from testing/treatment Medical Decision Making Level: 3 - Low I spent a total of 20 minutes on the date of the service which included preparing to see the patient, [id number] patient care, completing clinical documentation, performing a medically appropriate examination, counseling and educating the patient/family/caregiver, and ordering medications, tests,or procedures. documented in this encounterOhio State Health System08-09-2022 History of Present illness Narrative* Cj Rasmussen APRN.[facility] - 02/09/2022 7:06 PM EDT Subjective HPI HPI Darryl Bui is a 21 year old female who presents today for CC of cough, st, congestion. This started 3 days ago. Has tried otc medication for relief. Symptoms are worsened by nothing. Risk factors recent covid exposures. Denies cp/sob, n/v/d, ear pain. Denies possibility of being .Breast feeding. Vapes. .Patient presents with: Headache: Pt reported +Covid exposure Barros pain rated 3, sore throat pain rated 5, x4 days PAST MEDICAL HISTORY Diagnosis Date Anxiety and depression on celexa Breast mass 2016 Celiac disease Gastroesophageal reflux disease Migraine headache Migraines Psychiatric disorder depression PAST SURGICAL HISTORY Procedure Laterality Date BIOPSY BREAST OPEN INCISIONAL Left 10/30/2018 fibrocystic change with numerous apocrine cysts, ductal cysts, usual ductal hyperplasia, multiple benign intraductal papillomas and duct ectasia NONE US BREAST NEEDLE CORE BIOPSY LT Left 2017 fibrocystic changes ALLERGIES Amoxicillin, Penicillins, and Gluten MEDICATIONS predniSONE (DELTASONE) 20 mg tablet Take 2 tablets by mouth once daily for 5 days. sertraline (ZOLOFT) 100 mg tablet Take 100 mg by mouth once daily. (Patient not taking: Reported on02/09/2022) vit/iron fum/folic ac ( VITAMIN ORAL) Take by mouth once daily. (Patient not taking: Reported on 02/09/2022) FAMILY HISTORY Problem Relation Age of Onset other (epilepsie [Other]) Father Social History Tobacco Use Smoking status: Never Smokeless tobacco: Never Substance Use Topics Alcohol use: No Drug use: No ROS Objective Blood pressure 122/70, pulse 87, temperature 36.6 C (97.8 F), resp. rate 18, weight 59.2 kg (130 lb9.6 oz), last menstrual period 01/17/2022, SpO2 99 %, currently . Physical Exam Constitutional: General: She is not in acute distress. Appearance: She is not toxic-appearing or diaphoretic. HENT: Head: Normocephalic and atraumatic. Nose: Nose normal. Mouth/Throat: Pharynx: Uvula midline. No pharyngeal swelling, oropharyngeal exudate, posterior oropharyngeal erythema or uvula swelling. Eyes: General: Lids are normal. No scleral icterus. Right eye: No discharge. Left eye: No discharge. Conjunctiva/sclera: Conjunctivae normal. Pupils: Pupils are equal, round, and reactive to light. Neck: Trachea: Trachea normal. Cardiovascular: Rate and Rhythm: Normal rate and regular rhythm. Heart sounds: Normal heart sounds. Pulmonary: Effort: Pulmonary effort is normal. Breath sounds: Normal breath sounds. Musculoskeletal: Cervical back: Normal range of motion and neck supple. Lymphadenopathy: Cervical: No cervical adenopathy. Right cervical: No superficial cervical adenopathy. Left cervical: No superficial cervical adenopathy. Skin: Findings: No rash. Neurological: Mental Status: She is alert and oriented to person, place, and time. ASSESSMENT/PLAN: 1. URI, acute - ICD9: 465.9, ICD10: J06.9 - Discussed viral etiology and rationale for treatment. - Symptomatic treatment with prn analgesia - Supportive care with fluids and rest - Follow up in 3-5 days if symptoms persist or sooner if worsening of symptoms Discussed quarantine, social distancing otc medications discussed Push fluids -If you experience chest pain/shortness of breath go to ER - PREDNISONE 20 MG TABLET - 2019 CORONAVIRUS Agrees to plan Cj Rasmussen APRN.CNP documented in this encounterOhio State Health System02-08-2022 Evaluation + Plan note Future Scheduled Tests Radiology* CT Head or Brain w/ + w/o Contrast 08/11/21 [facility] 08-01-2021 Evaluation note* Diagnosis Onset Date Resolution Status Celiac disease acute History of marijuana use acu te Hx of one miscarriage acute LGSIL on Pap smear of cervix February, acute acute PTSD (post-traumatic stress disorder) acute Supervision of high risk , antepartum acute [facility] Work Phone: 1(407) 358-888008-01-2021 Evaluation note* Diagnosis Onset Date Resolution Status Celiac disease acute History of marijuana use acu te LGSIL on Pap smear of cervix February, acute acute PTSD (post-traumatic stress disorder) acute Supervision of high risk , antepartum acute Hx of one miscarriage resolv ed Celiac disease acute History of marijuana use acu te LGSIL on Pap smear of cervix February, acute acute PTSD (post-traumatic stress disorder) acute Supervision of high risk , antepartum acute Celiac disease acute History of marijuana use acu te LGSIL on Pap smear of cervix February, acute acute PTSD (post-traumatic stress disorder) acute Supervision of high risk , antepartum acute Celiac disease acute History of marijuana use acu te LGSIL on Pap smear of cervix February, acute acute PTSD (post-traumatic stress disorder) acute Supervision of high risk , antepartum acute [facility] Work Phone: 1(326) 683-591608-01-2021 Evaluation note* Diagnosis Onset Date Resolution Status Celiac disease acute History of marijuana use acu te LGSIL on Pap smear of cervix February, acute acute PTSD (post-traumatic stress disorder) acute Supervision of high risk , antepartum acute Hx of one miscarriage resolv ed Celiac disease acute History of marijuana use acu te LGSIL on Pap smear of cervix February, acute acute PTSD (post-traumatic stress disorder) acute Supervision of high risk , antepartum acute Celiac disease acute History of marijuana use acu te LGSIL on Pap smear of cervix February, acute acute PTSD (post-traumatic stress disorder) acute Supervision of high risk , antepartum acute Celiac disease acute History of marijuana use acu te LGSIL on Pap smear of cervix February, acute acute PTSD (post-traumatic stress disorder) acute Supervision of high risk , antepartum acute Decreased movement acu te History of marijuana use acu te LGSIL on Pap smear of cervix February, acute acute PTSD (post-traumatic stress disorder) acute Supervision of high risk , antepartum acute Celiac disease acute Decreased movement acu te History of marijuana use acu te LGSIL on Pap smear of cervix February, acute acute PTSD (post-traumatic stress disorder) acute Supervision of high risk , antepartum acute Supervision of high risk , antepartum acute Vaginal yeast infection [facility] Work Phone: 1(388) 234-984108-01-2021 Evaluation note* Diagnosis Onset Date Resolution Status Celiac disease acute History of marijuana use acu te LGSIL on Pap smear of cervix February, acute acute PTSD (post-traumatic stress disorder) acute Supervision of high risk , antepartum acute Celiac disease acute History of marijuana use acu te LGSIL on Pap smear of cervix February, acute acute PTSD (post-traumatic stress disorder) acute Supervision of high risk , antepartum acute Celiac disease acute History of marijuana use acu te LGSIL on Pap smear of cervix February, acute acute PTSD (post-traumatic stress disorder) acute Supervision of high risk , antepartum acute Decreased movement acu te History of marijuana use acu te LGSIL on Pap smear of cervix February, acute acute PTSD (post-traumatic stress disorder) acute Supervision of high risk , antepartum acute Celiac disease acute Decreased movement acu te History of marijuana use acu te LGSIL on Pap smear of cervix February, acute acute PTSD (post-traumatic stress disorder) acute Supervision of high risk , antepartum acute Supervision of high risk , antepartum acute Vaginal yeast infection [facility] Work Phone: [phone] Evaluation note* Diagnosis Onset Date Resolution Status Celiac disease acute History of marijuana use acu te LGSIL on Pap smear of cervix February, acute acute PTSD (post-traumatic stress disorder) acute Supervision of high risk , antepartum acute Celiac disease acute History of marijuana use acu te LGSIL on Pap smear of cervix February, acute acute PTSD (post-traumatic stress disorder) acute Supervision of high risk , antepartum acute History of marijuana use acu te LGSIL on Pap smear of cervix February, acute acute PTSD (post-traumatic stress disorder) acute Supervision of high risk , antepartum acute Decreased movement res olved Celiac disease acute History of marijuana use acu te LGSIL on Pap smear of cervix February, acute acute PTSD (post-traumatic stress disorder) acute Supervision of high risk , antepartum acute Decreased movement res olved Supervision of high risk , antepartum acute Vaginal yeast infection reso lved Celiac disease acute COVID-19 affecting , antepartum acute History of marijuana use acu te LGSIL on Pap smear of cervix February, acute acute PTSD (post-traumatic stress disorder) acute Decreased movement res olved Celiac disease acute COVID-19 affecting , antepartum acute History of marijuana use acu te LGSIL on Pap smear of cervix February, acute acute PTSD (post-traumatic stress disorder) acute Supervision of high risk , antepartum acute Celiac disease acute COVID-19 affecting , antepartum acute History of marijuana use acu te LGSIL on Pap smear of cervix February, acute acute PTSD (post-traumatic stress disorder) acute Supervision of high risk , antepartum acute [facility] Work Phone: [phone] Evaluation note* Diagnosis Onset Date Resolution Status Celiac disease acute History of marijuana use acu te LGSIL on Pap smear of cervix February, acute acute PTSD (post-traumatic stress disorder) acute Supervision of high risk , antepartum acute Celiac disease acute History of marijuana use acu te LGSIL on Pap smear of cervix February, acute acute PTSD (post-traumatic stress disorder) acute Supervision of high risk , antepartum acute History of marijuana use acu te LGSIL on Pap smear of cervix February, acute acute PTSD (post-traumatic stress disorder) acute Supervision of high risk , antepartum acute Decreased movement res olved Celiac disease acute History of marijuana use acu te LGSIL on Pap smear of cervix February, acute acute PTSD (post-traumatic stress disorder) acute Supervision of high risk , antepartum acute Decreased movement res olved Supervision of high risk , antepartum acute Vaginal yeast infection reso lved Celiac disease acute COVID-19 affecting , antepartum acute History of marijuana use acu te LGSIL on Pap smear of cervix February, acute acute PTSD (post-traumatic stress disorder) acute Decreased movement res olved Celiac disease acute COVID-19 affecting , antepartum acute History of marijuana use acu te LGSIL on Pap smear of cervix February, acute acute PTSD (post-traumatic stress disorder) acute Supervision of high risk , antepartum acute Celiac disease acute COVID-19 affecting , antepartum acute History of marijuana use acu te LGSIL on Pap smear of cervix February, acute acute PTSD (post-traumatic stress disorder) acute Supervision of high risk , antepartum acute Celiac disease acute COVID-19 affecting , antepartum acute History of marijuana use acu te LGSIL on Pap smear of cervix February, acute acute PTSD (post-traumatic stress disorder) acute Supervision of high risk , antepartum acute [facility] Work Phone: [phone] Evaluation note* Diagnosis Onset Date Resolution Status Celiac disease acute History of marijuana use acu te LGSIL on Pap smear of cervix February, acute acute PTSD (post-traumatic stress disorder) acute Supervision of high risk , antepartum acute Celiac disease acute History of marijuana use acu te LGSIL on Pap smear of cervix February, acute acute PTSD (post-traumatic stress disorder) acute Supervision of high risk , antepartum acute History of marijuana use acu te LGSIL on Pap smear of cervix February, acute acute PTSD (post-traumatic stress disorder) acute Supervision of high risk , antepartum acute Decreased movement res olved Celiac disease acute History of marijuana use acu te LGSIL on Pap smear of cervix February, acute acute PTSD (post-traumatic stress disorder) acute Supervision of high risk , antepartum acute Decreased movement res olved Supervision of high risk , antepartum acute Vaginal yeast infection reso lved Celiac disease acute COVID-19 affecting , antepartum acute History of marijuana use acu te LGSIL on Pap smear of cervix February, acute acute PTSD (post-traumatic stress disorder) acute Decreased movement res olved Celiac disease acute COVID-19 affecting , antepartum acute History of marijuana use acu te LGSIL on Pap smear of cervix February, acute acute PTSD (post-traumatic stress disorder) acute Supervision of high risk , antepartum acute Celiac disease acute COVID-19 affecting , antepartum acute History of marijuana use acu te LGSIL on Pap smear of cervix February, acute acute PTSD (post-traumatic stress disorder) acute Supervision of high risk , antepartum acute Celiac disease acute COVID-19 affecting , antepartum acute History of marijuana use acu te LGSIL on Pap smear of cervix February, acute acute PTSD (post-traumatic stress disorder) acute Supervision of high risk , antepartum acute Celiac disease acute COVID-19 affecting , antepartum acute False labor before 37 completed weeks of gestation acute History of marijuana use acu te Supervision of high risk , antepartum acute [facility] Work Phone: [phone] Evaluation note* Diagnosis Onset Date Resolution Status Celiac disease acute History of marijuana use acu te LGSIL on Pap smear of cervix February, acute acute PTSD (post-traumatic stress disorder) acute Supervision of high risk , antepartum acute History of marijuana use acu te LGSIL on Pap smear of cervix February, acute acute PTSD (post-traumatic stress disorder) acute Supervision of high risk , antepartum acute Decreased movement res olved Celiac disease acute History of marijuana use acu te LGSIL on Pap smear of cervix February, acute acute PTSD (post-traumatic stress disorder) acute Supervision of high risk , antepartum acute Decreased movement res olved Supervision of high risk , antepartum acute Vaginal yeast infection reso lved Celiac disease acute COVID-19 affecting , antepartum acute History of marijuana use acu te LGSIL on Pap smear of cervix February, acute acute PTSD (post-traumatic stress disorder) acute Decreased movement res olved Celiac disease acute COVID-19 affecting , antepartum acute History of marijuana use acu te LGSIL on Pap smear of cervix February, acute acute PTSD (post-traumatic stress disorder) acute Supervision of high risk , antepartum acute Celiac disease acute COVID-19 affecting , antepartum acute History of marijuana use acu te LGSIL on Pap smear of cervix February, acute acute PTSD (post-traumatic stress disorder) acute Supervision of high risk , antepartum acute Celiac disease acute COVID-19 affecting , antepartum acute History of marijuana use acu te LGSIL on Pap smear of cervix February, acute acute PTSD (post-traumatic stress disorder) acute Supervision of high risk , antepartum acute Celiac disease acute COVID-19 affecting , antepartum acute History of marijuana use acu te Supervision of high risk , antepartum acute False labor before 37 completed weeks of gestation resolved Celiac disease acute COVID-19 affecting , antepartum acute History of marijuana use acu te LGSIL on Pap smear of cervix February, acute acute PTSD (post-traumatic stress disorder) acute Supervision of high risk , antepartum acute Celiac disease acute COVID-19 affecting , antepartum acute History of marijuana use acu te LGSIL on Pap smear of cervix February, acute acute PTSD (post-traumatic stress disorder) acute Supervision of high risk , antepartum acute [facility] Work Phone: [phone] 246-289208-01-2021 Evaluation note* Diagnosis Onset Date Resolution Status History of marijuana use acu te LGSIL on Pap smear of cervix February, acute acute PTSD (post-traumatic stress disorder) acute Supervision of high risk , antepartum acute Decreased movement res olved Celiac disease acute History of marijuana use acu te LGSIL on Pap smear of cervix February, acute acute PTSD (post-traumatic stress disorder) acute Supervision of high risk , antepartum acute Decreased movement res olved Supervision of high risk , antepartum acute Vaginal yeast infection reso lved Celiac disease acute COVID-19 affecting , antepartum acute History of marijuana use acu te LGSIL on Pap smear of cervix February, acute acute PTSD (post-traumatic stress disorder) acute Decreased movement res olved Celiac disease acute COVID-19 affecting , antepartum acute History of marijuana use acu te LGSIL on Pap smear of cervix February, acute acute PTSD (post-traumatic stress disorder) acute Supervision of high risk , antepartum acute Celiac disease acute COVID-19 affecting , antepartum acute History of marijuana use acu te LGSIL on Pap smear of cervix February, acute acute PTSD (post-traumatic stress disorder) acute Supervision of high risk , antepartum acute Celiac disease acute COVID-19 affecting , antepartum acute History of marijuana use acu te LGSIL on Pap smear of cervix February, acute acute PTSD (post-traumatic stress disorder) acute Supervision of high risk , antepartum acute Celiac disease acute COVID-19 affecting , antepartum acute History of marijuana use acu te Supervision of high risk , antepartum acute False labor before 37 completed weeks of gestation resolved Celiac disease acute COVID-19 affecting , antepartum acute History of marijuana use acu te LGSIL on Pap smear of cervix February, acute acute PTSD (post-traumatic stress disorder) acute Supervision of high risk , antepartum acute Celiac disease acute COVID-19 affecting , antepartum acute History of marijuana use acu te LGSIL on Pap smear of cervix February, acute acute PTSD (post-traumatic stress disorder) acute Supervision of high risk , antepartum acute [facility] Work Phone: [phone] Evaluation note* Diagnosis Onset Date Resolution Status History of marijuana use acu te LGSIL on Pap smear of cervix February, acute acute PTSD (post-traumatic stress disorder) acute Supervision of high risk , antepartum acute Decreased movement res olved Celiac disease acute History of marijuana use acu te LGSIL on Pap smear of cervix February, acute acute PTSD (post-traumatic stress disorder) acute Supervision of high risk , antepartum acute Decreased movement res olved Supervision of high risk , antepartum acute Vaginal yeast infection reso lved Celiac disease acute COVID-19 affecting , antepartum acute History of marijuana use acu te LGSIL on Pap smear of cervix February, acute acute PTSD (post-traumatic stress disorder) acute Decreased movement res olved Celiac disease acute COVID-19 affecting , antepartum acute History of marijuana use acu te LGSIL on Pap smear of cervix February, acute acute PTSD (post-traumatic stress disorder) acute Supervision of high risk , antepartum acute Celiac disease acute COVID-19 affecting , antepartum acute History of marijuana use acu te LGSIL on Pap smear of cervix February, acute acute PTSD (post-traumatic stress disorder) acute Supervision of high risk , antepartum acute Celiac disease acute COVID-19 affecting , antepartum acute History of marijuana use acu te LGSIL on Pap smear of cervix February, acute acute PTSD (post-traumatic stress disorder) acute Supervision of high risk , antepartum acute Celiac disease acute COVID-19 affecting , antepartum acute History of marijuana use acu te Supervision of high risk , antepartum acute False labor before 37 completed weeks of gestation resolved Celiac disease acute COVID-19 affecting , antepartum acute History of marijuana use acu te LGSIL on Pap smear of cervix February, acute acute PTSD (post-traumatic stress disorder) acute Supervision of high risk , antepartum acute Celiac disease acute COVID-19 affecting , antepartum acute History of marijuana use acu te LGSIL on Pap smear of cervix February, acute acute PTSD (post-traumatic stress disorder) acute Supervision of high risk , antepartum acute Celiac disease acute COVID-19 affecting , antepartum acute History of marijuana use acu te LGSIL on Pap smear of cervix February, acute acute PTSD (post-traumatic stress disorder) acute Supervision of high risk , antepartum acute Celiac disease acute COVID-19 affecting , antepartum acute History of marijuana use acu te LGSIL on Pap smear of cervix February, acute acute PTSD (post-traumatic stress disorder) acute Supervision of high risk , antepartum acute Celiac disease acute COVID-19 affecting , antepartum acute History of marijuana use acu te acute PTSD (post-traumatic stress disorder) acute Status post vaginal delivery acute Supervision of high risk , antepartum acute [facility] Work Phone: [phone] History of Past illness Narrative* Problem Noted Date Resolved Date Breast pain 07/26/2017 08/23/2019 Last Assessment & Plan: In regards to her breast pain, I have recommended caffeine cessation, warm compresses and NSAIDs as needed. Lump or mass in breast 01/07/2017 7 Last Assessment & Plan: Ms. Bui an 16 year old with a left breast mass. This is significantly changed since her last exam and I have recommended an ultrasound guided biopsy. I will see her back with those results. Solitary cyst of left breast 01/09/201602/2016 Diffuse cystic mastopathy of left breast 016 01/07/2017 Last Assessment & Plan: Ms. Bui is a 15 year old female who initially presented to me for evaluation of a left breast mass in September 2015. An ultrasound showed fibrocystic breast tissue and multiple small cysts. Today, she has no new breast complaints. I can no longer feel a discrete mass on exam. I have recommended she continue monthly exams and call with any concerns. Otherwise, I will see her back in 1 year for a clinical exam. Lump or mass in breast 09/12/2015 6 Last Assessment & Plan: Ms. Bui is a 15 year old female with a palpable left breast mass. An ultrasound shows dense tissue with multiple subcentimeter cysts. I have recommended a close follow up. I will see her back in 3 months for a clinical exam. documented as of this encounter (statuses as of 02/09/2022) [facility] History of Past illness Narrative* Problem Noted Date Resolved Date Breast pain 07/26/2017 08/23/2019 Last Assessment & Plan: In regards to her breast pain, I have recommended caffeine cessation, warm compresses and NSAIDs as needed. Lump or mass in breast 01/07/2017 7 Last Assessment & Plan: Ms. Bui an 16 year old with a left breast mass. This is significantly changed since her last exam and I have recommended an ultrasound guided biopsy. I will see her back with those results. Solitary cyst of left breast 01/09/201602/2016 Diffuse cystic mastopathy of left breast 016 01/07/2017 Last Assessment & Plan: Ms. Bui is a 15 year old female who initially presented to me for evaluation of a left breast mass in September 2015. An ultrasound showed fibrocystic breast tissue and multiple small cysts. Today, she has no new breast complaints. I can no longer feel a discrete mass on exam. I have recommended she continue monthly exams and call with any concerns. Otherwise, I will see her back in 1 year for a clinical exam. Lump or mass in breast 09/12/2015 6 Last Assessment & Plan: Ms. Bui is a 15 year old female with a palpable left breast mass. An ultrasound shows dense tissue with multiple subcentimeter cysts. I have recommended a close follow up. I will see her back in 3 months for a clinical exam. documented as of this encounter (statuses as of 06/10/2022) [facility] History of Past illness Narrative* Problem Noted Date Resolved Date Breast pain 07/26/2017 08/23/2019 Last Assessment & Plan: In regards to her breast pain, I have recommended caffeine cessation, warm compresses and NSAIDs as needed. Lump or mass in breast 01/07/2017 7 Last Assessment & Plan: Ms. Bui an 16 year old with a left breast mass. This is significantly changed since her last exam and I have recommended an ultrasound guided biopsy. I will see her back with those results. Solitary cyst of left breast 01/09/201602/2016 Diffuse cystic mastopathy of left breast 016 01/07/2017 Last Assessment & Plan: Ms. Bui is a 15 year old female who initially presented to me for evaluation of a left breast mass in September 2015. An ultrasound showed fibrocystic breast tissue and multiple small cysts. Today, she has no new breast complaints. I can no longer feel a discrete mass on exam. I have recommended she continue monthly exams and call with any concerns. Otherwise, I will see her back in 1 year for a clinical exam. Lump or mass in breast 09/12/2015 6 Last Assessment & Plan: Ms. Bui is a 15 year old female with a palpable left breast mass. An ultrasound shows dense tissue with multiple subcentimeter cysts. I have recommended a close follow up. I will see her back in 3 months for a clinical exam. documented as of this encounter (statuses as of 06/11/2022) [facility] History of Past illness Narrative* Problem Noted Date Resolved Date Breast pain 07/26/2017 08/23/2019 Last Assessment & Plan: In regards to her breast pain, I have recommended caffeine cessation, warm compresses and NSAIDs as needed. Lump or mass in breast 01/07/2017 7 Last Assessment & Plan: Ms. Bui an 16 year old with a left breast mass. This is significantly changed since her last exam and I have recommended an ultrasound guided biopsy. I will see her back with those results. Solitary cyst of left breast 01/09/201602/2016 Diffuse cystic mastopathy of left breast 016 01/07/2017 Last Assessment & Plan: Ms. Bui is a 15 year old female who initially presented to me for evaluation of a left breast mass in September 2015. An ultrasound showed fibrocystic breast tissue and multiple small cysts. Today, she has no new breast complaints. I can no longer feel a discrete mass on exam. I have recommended she continue monthly exams and call with any concerns. Otherwise, I will see her back in 1 year for a clinical exam. Lump or mass in breast 09/12/2015 6 Last Assessment & Plan: Ms. Bui is a 15 year old female with a palpable left breast mass. An ultrasound shows dense tissue with multiple subcentimeter cysts. I have recommended a close follow up. I will see her back in 3 months for a clinical exam. documented as of this encounter (statuses as of 08/04/2022) [facility] History of Past illness Narrative* Problem Noted Date Resolved Date Breast pain 07/26/2017 08/23/2019 Last Assessment & Plan: In regards to her breast pain, I have recommended caffeine cessation, warm compresses and NSAIDs as needed. Lump or mass in breast 01/07/2017 7 Last Assessment & Plan: Ms. Bui an 16 year old with a left breast mass. This is significantly changed since her last exam and I have recommended an ultrasound guided biopsy. I will see her back with those results. Solitary cyst of left breast 01/09/201602/2016 Diffuse cystic mastopathy of left breast 016 01/07/2017 Last Assessment & Plan: Ms. Bui is a 15 year old female who initially presented to me for evaluation of a left breast mass in September 2015. An ultrasound showed fibrocystic breast tissue and multiple small cysts. Today, she has no new breast complaints. I can no longer feel a discrete mass on exam. I have recommended she continue monthly exams and call with any concerns. Otherwise, I will see her back in 1 year for a clinical exam. Lump or mass in breast 09/12/2015 6 Last Assessment & Plan: Ms. Bui is a 15 year old female with a palpable left breast mass. An ultrasound shows dense tissue with multiple subcentimeter cysts. I have recommended a close follow up. I will see her back in 3 months for a clinical exam. documented as of this encounter (statuses as of 08/13/2022) [facility] History of Past illness Narrative* Problem Noted Date Resolved Date Breast pain 07/26/2017 08/23/2019 Last Assessment & Plan: In regards to her breast pain, I have recommended caffeine cessation, warm compresses and NSAIDs as needed. Lump or mass in breast 01/07/2017 7 Last Assessment & Plan: Ms. Bui an 16 year old with a left breast mass. This is significantly changed since her last exam and I have recommended an ultrasound guided biopsy. I will see her back with those results. Solitary cyst of left breast 01/09/201602/2016 Diffuse cystic mastopathy of left breast 016 01/07/2017 Last Assessment & Plan: Ms. Bui is a 15 year old female who initially presented to me for evaluation of a left breast mass in September 2015. An ultrasound showed fibrocystic breast tissue and multiple small cysts. Today, she has no new breast complaints. I can no longer feel a discrete mass on exam. I have recommended she continue monthly exams and call with any concerns. Otherwise, I will see her back in 1 year for a clinical exam. Lump or mass in breast 09/12/2015 Last Assessment & Plan: Ms. Bui is a 15 year old female with a palpable left breast mass. An ultrasound shows dense tissue with multiple subcentimeter cysts. I have recommended a close follow up. I will see her back in 3 months for a clinical exam. documented as of this encounter (statuses as of 12/22/2022) [facility], acute- Primary Acute upper respiratory infections of unspecified site [facility] Low grade fever- Primary Fever, unspecified Nausea Nausea alone Headache, unspecified headache type [facility] Diagnosis Migraine with aura, not intractable, without status migrainosus- Primary Flu-like symptoms Other general symptoms [facility] Diagnosis Dehydration during - Primary Tachycardia Tachycardia, unspecified [facility] Diagnosis Pain, dental- Primary Unspecified disorder of the teeth and supporting structures [facility] Diagnosis Fibrocystic changes of left breast- Primary Fibrocystic changes of left breast- Primary Breast pain Mastodynia Fibrocystic changes of left breast- Primary Breast pain Mastodynia Fibrocystic changes of left breast- Primary Breast pain Mastodynia Fibrocystic changes of left breast Fibrocystic breast changes, left- Primary Fibrocystic changes of left breast Fibrocystic changes of left breast- Primary Viral URI- Primary Acute upper respiratory infections of unspecified site Acute cough Sore throat Acute pharyngitis Exposure to influenza Contact with or exposure to other viral diseases [facility] Diagnosis Fibrocystic changes of left breast- Primary Fibrocystic changes of left breast- Primary Breast pain Mastodynia Fibrocystic changes of left breast- Primary Breast pain Mastodynia Fibrocystic changes of left breast- Primary Breast pain Mastodynia Fibrocystic changes of left breast Fibrocystic breast changes, left- Primary Fibrocystic changes of left breast Fibrocystic changes of left breast- Primary Acute otitis media, left- Primary Unspecified otitis media Left ear pain Otalgia, unspecified Nasal congestion Other diseases of nasal cavity and sinuses documented in this encounter [facility] course Narrative No data available for this section [facility] Discharge instructions No data available for this section [facility] Discharge instructions Additional Instructions Stay well hydrated. Dr. Santos will put in prescription for antibiotic on the morning of 08/11/22. Keep next scheduled office appointment.[facility] Work Phone: Progress note Author Ramandeep Hinds [facility] Note Date/Time December 26, 2024 11:0 4am [facility] [address], [address] [place] [address] OFFICE VISIT Date of Service: 12/26/24 MR#: [id number] Acct: [id number] Name: DARRYL BUI Rep #: [id number] : 2000 Provider: Dr. Savannah Ferguson, Age/Sex: 24/F Location: [facility] Status: Signed Intake Vital Signs 11/14/24 21:18 11/28/24 15:42 12/26/24 10:18 12/26/24 10:20 Height 5 ft 3 in 5 ft 3 in 5 ft 3 in 5 ft 3 in Weight: 134 lb BMI 23.7 BP 112/72 Intake Visit Reasons: visit (obstetrics) Compressor House Operator Required: No Is patient in pain?: No Allergies gluten Allergy (Severe, Verified 11/28/24 15:28) Abd cramps/diarrhea amoxicillin Allergy (Mild, Verified 11/28/24 15:28) Rash penicillin G Allergy (Mild, Verified 11/28/24 15:28) Rash pomegranate Allergy (Verified 11/28/24 15:28) Anaphylaxis Medications ?Medication ?Instructions ?Recorded ?Confirmed ?Type etonogestrel 68 mg subdermal 1 implant subdermal ONCE 11/28/24 12/26/24 History implant (Nexplanon) : Yes [facility] Medical History Twin History of marijuana use Trauma Migraine Autoimmune disease Family history of hemophilia History of suicidal ideation Anxiety and depression Surgical History Status post vaginal delivery Status post vaginal delivery H/O breast surgery Family History Mother Arthritis Fibromyalgia Father Epilepsy Social History adopted: No household members: children number of children: 4 current occupational status: employed current occupation: [employer] current occupational exposures/hazards: No pets and animals: No history of recent travel: Yes ( - Mar 2024) out of state: Yes out of country: No sexually active: Yes Smoking Status: Never smoker alcohol intake: never substance use type: marijuana diet: gluten free well-balanced diet: daily or most days caffeine: Yes Type: coffee Number of servings: 1 eating out: rarely or never during the past year weight has: remained stable what type of physical activity do you participate in: walking frequency: 3-4 times per week duration: < 15 minutes/day kyra/tenriism: Presybeterian seatbelt use: always do you feel safe at home: Yes additional social history: BF: Drake - [employer] at [employer] History 4 Elective abortions Hx Para 3 Spontaneous abortions 1 Hx # Term Pregnancies 1 Ectopic pregnancies Hx # Pregnancies 1 Multiple births 1 # of living children 4 Past Pregnancies Del. Date Name GA/Weeks Outcome Route Bth Weight Infant Gen Labor Lgth Anesthesia Del Locatn Provider FOB Unknown 2017 miscarriage spontaneous 03/15/20 [place] 39 live - full term 7lbs 12oz Female n one [facility] 10/16/22 Ember 38 live - full term 7lbs 7.4oz Female none [facility] Dr. Angulo 11/14/24 Darya 35 live - 5lbs 8oz Female spinal [facility] JSina BF Drake 11/14/24 Jennifer 35 live - 5lbs 2oz Female spinal [facility] JSina BF Drake Delivery Date: 03/15/20 Last Updated by: Shital Loving no complications Delivery Date: 10/16/22 Last Updated by: Eun Griffith COVID Delivery Date: 11/14/24 Last Updated by: Diana Zuniga RN Transferred to [place] Depression Screen PHQ-2/9 PHQ-2 Over the last 2 weeks, how often have you been bothered by any of the following problems? 1. Little interest or pleasure in doing things: not at all 2. Feeling down, depressed, or hopeless: not at all Total score: 0 Post HPI Routine Follow-Up: Details: DARRYL BUI is a 24 year old who presents for her post visit. Feeding: Both Menses resumed: No Pulpotio Bareas since delivery: No Emotional Support: Yes Last Pap:: 2020 Control Method: has nexplanon ROS Const Reports system reviewed and no additional complaints, except as documented GI Reports system reviewed and no additional complaints, except as documented, Denies bloating, Denies constipation, Denies nausea and Denies vomiting Reports system reviewed and no additional complaints, except as documented, Denies abnormal vaginal bleeding, Denies pelvic pain, Denies sexual dysfunction,Denies urinary incontinence, Denies urinary hesitancy, Denies urinary urgency and Denies vaginal discharge Skin/Breast Reports system reviewed and no additional complaints, except as documented and Reports as per HPI Psych Reports as per HPI Exam Const General: cooperative, healthy appearing, comfortable and no acute distress HENAR Head: normal to inspection Neck Neck: normal visual inspection and no lymphadenopathy Thyroid: thyroid normal Chest Breast inspection: normal inspection of the breasts and normal inspection of theaxillae Breast palpation: normal palpation of the breasts and normal palpation of the axillae Resp Effort & Inspection: normal respiratory effort GI Inspection: normal to inspection Palpation: soft, no hepatosplenomegaly and nontender General: bladder normal to palpation External Female Exam: normal external appearance and normal appearance of the urethra Urethra: normal appearance of the urethra Speculum Exam - Vagina: normal appearance of the vagina and normal vaginal discharge Speculum Exam - Cervix: normal appearance of the cervix Bimanual Exam- Vagina & Uterus: normal bimanual exam, uterine size normal, bladder normal to palpation, uterine shape normal and non-tender Bimanual Exam- Adnexa, other: normal adnexae and normal Pelvic Support: normal Skin General: no rashes or lesions noted Coding Level of Care Code Care Only Diagnoses Routine Follow-Up Z39.2 Assessment and Plan Assessment and Plan (1) Routine Follow-Up: Plan: Cervical cancer screening: pap done today Contraceptive plans: has nexplanon Complications: none Follow up for annual exams or sooner if indicated. 12/26/24 1104 <Electronically signed by Ramandeep Serrano DO> Date _ Ramandeep Ferguson DO Cosigner Signature: Date (if applicable) CC: ~ [facility] Work Phone: Reason for referral (narrative)No reason for referral information availableWCincinnati [facility] Work Phone: Summary Purpose Family History No Family History Records Found Relationship Condition Age at Onset Recorded Date/T taqueria mother Arthritis Unknown Fibromyalgia Unknown father Epilepsy Unknown Advance Directives No Advanced Directives Records Found Advance Directive Response Recorded Date/ Time Living Will No February 10 12:48am Power of Major Assembly Inspector No February 10 12:48am Advance Directive Response Recorded Date/ Time Living Will No February 09, 2021 11:48pm Power of Major Assembly Inspector No February 09 11:48pm Advance Directive Response Recorded Date/ Time Living Will No August 12 6:39pm Power of Major Assembly Inspector No August 12, 2022 6:39pm Advance Directive Response Recorded Date/ Time Living Will No August 12 7:39pm Power of Major Assembly Inspector No August 12, 2022 7:39pm Advance Directive Response Recorded Date/ Time Name of Medical Power of Major Assembly Inspector mom-Chasity whitley October 16, 2022 10:05am Living Will No October 16, 2022 10:05am Power of Major Assembly Inspector Yes October 16 10:05am Advance Directive Response Recorded Date/ Time Living Will No Miriam 15th, 2023 10:05am Power of Major Assembly Inspector Yes October 16 10:05am Advance Directive Response Recorded Date/ Time Living Will No October 16, 2022 10:05am Do you have a Healthcare Power of Major Assembly Inspector? Yes October 16, 2022 10:05am Advance Directive Response Recorded Date/ Time Do you have a Healthcare Power of Major Assembly Inspector? No November 14, 2024 9:26pm Procedure Findings Note HNO ID: [id number] Author: Matty Acosta Service: General Surgery Author Type: Physician Type: Brief Op Note Filed: 10/30/2018 8:53 AM Note Text: BRIEF OPERATIVE / PROCEDURE NOTE LOG ID: [id number] SURGERY/PROCEDURE DATE: 10/30/2018 INCISION/PROCEDURE START TIME: 8:24 AM INCISION CLOSE/PROCEDURE END TIME: SURGEON(S)/PROCEDURALIST(S) AND SENIOR AUDITOR(S): Surgeon(s) and Role: * Makeda Acosta - Primary Sole Inker: Kris Jose SA SURGERY/PROCEDURE(S): left breast excisional biopsy ANESTHESIA: General FINDINGS: palpable mass consistent with fibrocystic changes ESTIMATED BLOOD LOSS: minimal SPECIMENS: left breast mass COMPLICATIONS: None PRE-OP/PRE-PROCEDURE DIAGNOSIS: left breast mass POST-OP/POST-PROCEDURE DIAGNOSIS: Fibrocystic breast, left [N60.12] SIGNATURE: Makeda Acosta MD PATIENT NAME: Darryl Bui DATE: October 30, 2018 TIME: 8:52 AM PAGER/CONTACT #: Chief Complaint and Reason for Visit Chief Complaint NOB LMP 01/17 Reason for Visit Celiac disease History of marijuana use Hx of one miscarriage LGSIL on Pap smear of cervix PTSD (post-traumatic stress disorder) Supervision of high risk , antepartum Chief Complaint NOB LMP 01/17 14 WK OB 18 WK OB 20WK OB OBS Reason for Visit Celiac disease History of marijuana use LGSIL on Pap smear of cervix PTSD (post-traumatic stress disorder) Supervision of high risk , antepartum Hx of one miscarriage Celiac disease History of marijuana use LGSIL on Pap smear of cervix PTSD (post-traumatic stress disorder) Supervision of high risk , antepartum Celiac disease History of marijuana use LGSIL on Pap smear of cervix PTSD (post-traumatic stress disorder) Supervision of high risk , antepartum Celiac disease History of marijuana use LGSIL on Pap smear of cervix PTSD (post-traumatic stress disorder) Supervision of high risk , antepartum Chief Complaint NOB LMP 01/17 14 WK OB 18 WK OB 20WK OB OBS OBS 24 WK OB well being CRAMPING/SPOTTING CRAMPING/SPOTTING Reason for Visit Celiac disease History of marijuana use LGSIL on Pap smear of cervix PTSD (post-traumatic stress disorder) Supervision of high risk , antepartum Hx of one miscarriage Celiac disease History of marijuana use LGSIL on Pap smear of cervix PTSD (post-traumatic stress disorder) Supervision of high risk , antepartum Celiac disease History of marijuana use LGSIL on Pap smear of cervix PTSD (post-traumatic stress disorder) Supervision of high risk , antepartum Celiac disease History of marijuana use LGSIL on Pap smear of cervix PTSD (post-traumatic stress disorder) Supervision of high risk , antepartum Decreased movement History of marijuana use LGSIL on Pap smear of cervix PTSD (post-traumatic stress disorder) Supervision of high risk , antepartum Celiac disease Decreased movement History of marijuana use LGSIL on Pap smear of cervix PTSD (post-traumatic stress disorder) Supervision of high risk , antepartum Supervision of high risk , antepartum Vaginal yeast infection Chief Complaint 14 WK OB 18 WK OB 20WK OB OBS OBS 24 WK OB well being CRAMPING/SPOTTING CRAMPING/SPOTTING Reason for Visit Celiac disease History of marijuana use LGSIL on Pap smear of cervix PTSD (post-traumatic stress disorder) Supervision of high risk , antepartum Celiac disease History of marijuana use LGSIL on Pap smear of cervix PTSD (post-traumatic stress disorder) Supervision of high risk , antepartum Celiac disease History of marijuana use LGSIL on Pap smear of cervix PTSD (post-traumatic stress disorder) Supervision of high risk , antepartum Decreased movement History of marijuana use LGSIL on Pap smear of cervix PTSD (post-traumatic stress disorder) Supervision of high risk , antepartum Celiac disease Decreased movement History of marijuana use LGSIL on Pap smear of cervix PTSD (post-traumatic stress disorder) Supervision of high risk , antepartum Supervision of high risk , antepartum Vaginal yeast infection Chief Complaint 14 WK OB 18 WK OB 20WK OB OBS OBS 24 WK OB well being CRAMPING/SPOTTING CRAMPING/SPOTTING R/O LABR Reason for Visit Celiac disease History of marijuana use LGSIL on Pap smear of cervix PTSD (post-traumatic stress disorder) Supervision of high risk , antepartum Celiac disease History of marijuana use LGSIL on Pap smear of cervix PTSD (post-traumatic stress disorder) Supervision of high risk , antepartum Celiac disease History of marijuana use LGSIL on Pap smear of cervix PTSD (post-traumatic stress disorder) Supervision of high risk , antepartum Decreased movement History of marijuana use LGSIL on Pap smear of cervix PTSD (post-traumatic stress disorder) Supervision of high risk , antepartum Celiac disease Decreased movement History of marijuana use LGSIL on Pap smear of cervix PTSD (post-traumatic stress disorder) Supervision of high risk , antepartum Supervision of high risk , antepartum Vaginal yeast infection Chief Complaint 14 WK OB 18 WK OB 20WK OB OBS OBS 24 WK OB well being CRAMPING/SPOTTING CRAMPING/SPOTTING R/O LABR weakness Reason for Visit Celiac disease History of marijuana use LGSIL on Pap smear of cervix PTSD (post-traumatic stress disorder) Supervision of high risk , antepartum Celiac disease History of marijuana use LGSIL on Pap smear of cervix PTSD (post-traumatic stress disorder) Supervision of high risk , antepartum Celiac disease History of marijuana use LGSIL on Pap smear of cervix PTSD (post-traumatic stress disorder) Supervision of high risk , antepartum Decreased movement History of marijuana use LGSIL on Pap smear of cervix PTSD (post-traumatic stress disorder) Supervision of high risk , antepartum Celiac disease Decreased movement History of marijuana use LGSIL on Pap smear of cervix PTSD (post-traumatic stress disorder) Supervision of high risk , antepartum Supervision of high risk , antepartum Vaginal yeast infection Chief Complaint 18 WK OB 20WK OB OBS OBS 24 WK OB well being CRAMPING/SPOTTING CRAMPING/SPOTTING R/O LABR R/O LABR weakness 28 WK OB 30 WK OB Reason for Visit Celiac disease History of marijuana use LGSIL on Pap smear of cervix PTSD (post-traumatic stress disorder) Supervision of high risk , antepartum Celiac disease History of marijuana use LGSIL on Pap smear of cervix PTSD (post-traumatic stress disorder) Supervision of high risk , antepartum History of marijuana use LGSIL on Pap smear of cervix PTSD (post-traumatic stress disorder) Supervision of high risk , antepartum Decreased movement Celiac disease History of marijuana use LGSIL on Pap smear of cervix PTSD (post-traumatic stress disorder) Supervision of high risk , antepartum Decreased movement Supervision of high risk , antepartum Vaginal yeast infection Celiac disease COVID-19 affecting , antepartum History of marijuana use LGSIL on Pap smear of cervix PTSD (post-traumatic stress disorder) Decreased movement Celiac disease COVID-19 affecting , antepartum History of marijuana use LGSIL on Pap smear of cervix PTSD (post-traumatic stress disorder) Supervision of high risk , antepartum Celiac disease COVID-19 affecting , antepartum History of marijuana use LGSIL on Pap smear of cervix PTSD (post-traumatic stress disorder) Supervision of high risk , antepartum Chief Complaint 18 WK OB 20WK OB OBS OBS 24 WK OB well being CRAMPING/SPOTTING CRAMPING/SPOTTING R/O LABR R/O LABR weakness 28 WK OB 30 WK OB Other viral diseases complicating , unspe 32 WK OB R/O LABOR Reason for Visit Celiac disease History of marijuana use LGSIL on Pap smear of cervix PTSD (post-traumatic stress disorder) Supervision of high risk , antepartum Celiac disease History of marijuana use LGSIL on Pap smear of cervix PTSD (post-traumatic stress disorder) Supervision of high risk , antepartum History of marijuana use LGSIL on Pap smear of cervix PTSD (post-traumatic stress disorder) Supervision of high risk , antepartum Decreased movement Celiac disease History of marijuana use LGSIL on Pap smear of cervix PTSD (post-traumatic stress disorder) Supervision of high risk , antepartum Decreased movement Supervision of high risk , antepartum Vaginal yeast infection Celiac disease COVID-19 affecting , antepartum History of marijuana use LGSIL on Pap smear of cervix PTSD (post-traumatic stress disorder) Decreased movement Celiac disease COVID-19 affecting , antepartum History of marijuana use LGSIL on Pap smear of cervix PTSD (post-traumatic stress disorder) Supervision of high risk , antepartum Celiac disease COVID-19 affecting , antepartum History of marijuana use LGSIL on Pap smear of cervix PTSD (post-traumatic stress disorder) Supervision of high risk , antepartum Celiac disease COVID-19 affecting , antepartum History of marijuana use LGSIL on Pap smear of cervix PTSD (post-traumatic stress disorder) Supervision of high risk , antepartum Chief Complaint 18 WK OB 20WK OB OBS OBS 24 WK OB well being CRAMPING/SPOTTING CRAMPING/SPOTTING R/O LABR R/O LABR weakness 28 WK OB 30 WK OB Other viral diseases complicating , unspe 32 WK OB R/O LABOR R/O LABOR Reason for Visit Celiac disease History of marijuana use LGSIL on Pap smear of cervix PTSD (post-traumatic stress disorder) Supervision of high risk , antepartum Celiac disease History of marijuana use LGSIL on Pap smear of cervix PTSD (post-traumatic stress disorder) Supervision of high risk , antepartum History of marijuana use LGSIL on Pap smear of cervix PTSD (post-traumatic stress disorder) Supervision of high risk , antepartum Decreased movement Celiac disease History of marijuana use LGSIL on Pap smear of cervix PTSD (post-traumatic stress disorder) Supervision of high risk , antepartum Decreased movement Supervision of high risk , antepartum Vaginal yeast infection Celiac disease COVID-19 affecting , antepartum History of marijuana use LGSIL on Pap smear of cervix PTSD (post-traumatic stress disorder) Decreased movement Celiac disease COVID-19 affecting , antepartum History of marijuana use LGSIL on Pap smear of cervix PTSD (post-traumatic stress disorder) Supervision of high risk , antepartum Celiac disease COVID-19 affecting , antepartum History of marijuana use LGSIL on Pap smear of cervix PTSD (post-traumatic stress disorder) Supervision of high risk , antepartum Celiac disease COVID-19 affecting , antepartum History of marijuana use LGSIL on Pap smear of cervix PTSD (post-traumatic stress disorder) Supervision of high risk , antepartum Celiac disease COVID-19 affecting , antepartum False labor before 37 completed weeks of gestation History of marijuana use Supervision of high risk , antepartum Chief Complaint 20WK OB OBS OBS 24 WK OB well being CRAMPING/SPOTTING CRAMPING/SPOTTING R/O LABR R/O LABR weakness 28 WK OB 30 WK OB Other viral diseases complicating , unspe 32 WK OB R/O LABOR R/O LABOR 34 WK OB Other viral diseases complicating , unspe 36 WK OB Reason for Visit Celiac disease History of marijuana use LGSIL on Pap smear of cervix PTSD (post-traumatic stress disorder) Supervision of high risk , antepartum History of marijuana use LGSIL on Pap smear of cervix PTSD (post-traumatic stress disorder) Supervision of high risk , antepartum Decreased movement Celiac disease History of marijuana use LGSIL on Pap smear of cervix PTSD (post-traumatic stress disorder) Supervision of high risk , antepartum Decreased movement Supervision of high risk , antepartum Vaginal yeast infection Celiac disease COVID-19 affecting , antepartum History of marijuana use LGSIL on Pap smear of cervix PTSD (post-traumatic stress disorder) Decreased movement Celiac disease COVID-19 affecting , antepartum History of marijuana use LGSIL on Pap smear of cervix PTSD (post-traumatic stress disorder) Supervision of high risk , antepartum Celiac disease COVID-19 affecting , antepartum History of marijuana use LGSIL on Pap smear of cervix PTSD (post-traumatic stress disorder) Supervision of high risk , antepartum Celiac disease COVID-19 affecting , antepartum History of marijuana use LGSIL on Pap smear of cervix PTSD (post-traumatic stress disorder) Supervision of high risk , antepartum Celiac disease COVID-19 affecting , antepartum History of marijuana use Supervision of high risk , antepartum False labor before 37 completed weeks of gestation Celiac disease COVID-19 affecting , antepartum History of marijuana use LGSIL on Pap smear of cervix PTSD (post-traumatic stress disorder) Supervision of high risk , antepartum Celiac disease COVID-19 affecting , antepartum History of marijuana use LGSIL on Pap smear of cervix PTSD (post-traumatic stress disorder) Supervision of high risk , antepartum Chief Complaint OBS OBS 24 WK OB well being CRAMPING/SPOTTING CRAMPING/SPOTTING R/O LABR R/O LABR weakness 28 WK OB 30 WK OB Other viral diseases complicating , unspe 32 WK OB R/O LABOR R/O LABOR 34 WK OB Other viral diseases complicating , unspe 36 WK OB Reason for Visit History of marijuana use LGSIL on Pap smear of cervix PTSD (post-traumatic stress disorder) Supervision of high risk , antepartum Decreased movement Celiac disease History of marijuana use LGSIL on Pap smear of cervix PTSD (post-traumatic stress disorder) Supervision of high risk , antepartum Decreased movement Supervision of high risk , antepartum Vaginal yeast infection Celiac disease COVID-19 affecting , antepartum History of marijuana use LGSIL on Pap smear of cervix PTSD (post-traumatic stress disorder) Decreased movement Celiac disease COVID-19 affecting , antepartum History of marijuana use LGSIL on Pap smear of cervix PTSD (post-traumatic stress disorder) Supervision of high risk , antepartum Celiac disease COVID-19 affecting , antepartum History of marijuana use LGSIL on Pap smear of cervix PTSD (post-traumatic stress disorder) Supervision of high risk , antepartum Celiac disease COVID-19 affecting , antepartum History of marijuana use LGSIL on Pap smear of cervix PTSD (post-traumatic stress disorder) Supervision of high risk , antepartum Celiac disease COVID-19 affecting , antepartum History of marijuana use Supervision of high risk , antepartum False labor before 37 completed weeks of gestation Celiac disease COVID-19 affecting , antepartum History of marijuana use LGSIL on Pap smear of cervix PTSD (post-traumatic stress disorder) Supervision of high risk , antepartum Celiac disease COVID-19 affecting , antepartum History of marijuana use LGSIL on Pap smear of cervix PTSD (post-traumatic stress disorder) Supervision of high risk , antepartum Chief Complaint OBS OBS 24 WK OB well being CRAMPING/SPOTTING CRAMPING/SPOTTING R/O LABR R/O LABR weakness 28 WK OB 30 WK OB Other viral diseases complicating , unspe 32 WK OB R/O LABOR R/O LABOR 34 WK OB Other viral diseases complicating , unspe 36 WK OB 37 WK OB 38 WK OB VAG DELIVERY LABOR AND DELIVERY VAG DELIVERY Reason for Visit History of marijuana use LGSIL on Pap smear of cervix PTSD (post-traumatic stress disorder) Supervision of high risk , antepartum Decreased movement Celiac disease History of marijuana use LGSIL on Pap smear of cervix PTSD (post-traumatic stress disorder) Supervision of high risk , antepartum Decreased movement Supervision of high risk , antepartum Vaginal yeast infection Celiac disease COVID-19 affecting , antepartum History of marijuana use LGSIL on Pap smear of cervix PTSD (post-traumatic stress disorder) Decreased movement Celiac disease COVID-19 affecting , antepartum History of marijuana use LGSIL on Pap smear of cervix PTSD (post-traumatic stress disorder) Supervision of high risk , antepartum Celiac disease COVID-19 affecting , antepartum History of marijuana use LGSIL on Pap smear of cervix PTSD (post-traumatic stress disorder) Supervision of high risk , antepartum Celiac disease COVID-19 affecting , antepartum History of marijuana use LGSIL on Pap smear of cervix PTSD (post-traumatic stress disorder) Supervision of high risk , antepartum Celiac disease COVID-19 affecting , antepartum History of marijuana use Supervision of high risk , antepartum False labor before 37 completed weeks of gestation Celiac disease COVID-19 affecting , antepartum History of marijuana use LGSIL on Pap smear of cervix PTSD (post-traumatic stress disorder) Supervision of high risk , antepartum Celiac disease COVID-19 affecting , antepartum History of marijuana use LGSIL on Pap smear of cervix PTSD (post-traumatic stress disorder) Supervision of high risk , antepartum Celiac disease COVID-19 affecting , antepartum History of marijuana use LGSIL on Pap smear of cervix PTSD (post-traumatic stress disorder) Supervision of high risk , antepartum Celiac disease COVID-19 affecting , antepartum History of marijuana use LGSIL on Pap smear of cervix PTSD (post-traumatic stress disorder) Supervision of high risk , antepartum Celiac disease COVID-19 affecting , antepartum History of marijuana use PTSD (post-traumatic stress disorder) Status post vaginal delivery Supervision of high risk , antepartum Chief Complaint Admit Date 12wk OB *twins June 07, 2024 3 :34pm 16 WK OB *twins July 09, 2024 2: 16pm 20 WK OB *TWINS* August 14, 2024 2:08pm 24 WK OB *TWINS* September 05, 2024 2:51 pm SCREENING September 11, 2024 9:5 0am Reason for Visit Admit Date Anxiety and depression June 07 3:34pm Celiac disease June 07, 2024 3 :34pm Family history of hemophilia June 3:34pm History of suicidal ideation June 3:34pm LGSIL on Pap smear of cervix June 3:34pm Marijuana use June 07, 2024 3 :34pm June 07, 2024 3 :34pm PTSD (post-traumatic stress disorder) [facility] 2023 3:34pm Supervision of high-risk Decem dipti 2023 3:34pm Twin June 07, 2024 3 :34pm Anxiety and depression July 09, 2024 2:16pm Celiac disease July 09, 2024 2: 16pm Dichorionic diamniotic twin gestation [facility] 2024 2:16pm Family history of hemophilia July 2:16pm History of suicidal ideation July 2:16pm LGSIL on Pap smear of cervix July 2:16pm Marijuana use July 09, 2024 2: 16pm July 09, 2024 2: 16pm PTSD (post-traumatic stress disorder) [facility] 2024 2:16pm Supervision of high-risk Janua ry 2024 2:16pm Anxiety and depression August 14 2:08pm Celiac disease August 14, 2024 2:08pm Dichorionic diamniotic twin gestation [facility] 2024 2:08pm Family history of hemophilia August 142024 2:08pm History of suicidal ideation August 142024 2:08pm LGSIL on Pap smear of cervix August 142024 2:08pm Marijuana use August 14, 2024 2:08pm August 14, 2024 2:08pm PTSD (post-traumatic stress disorder) [facility] 2024 2:08pm Supervision of high-risk Febru tom 2024 2:08pm Anxiety and depression September 05, 2024 2 :51pm Celiac disease September 05, 2024 2:51 pm Dichorionic diamniotic twin gestation [facility] 2024 2:51pm Family history of hemophilia September 05, 2024 2:51pm History of suicidal ideation September 05, 2024 2:51pm LGSIL on Pap smear of cervix September 05, 2024 2:51pm Marijuana use September 05, 2024 2:51 pm September 05, 2024 2:51 pm PTSD (post-traumatic stress disorder) [facility] 2024 2:51pm Supervision of high-risk September 05, 2024 2:51pm Chief Complaint Admit Date 16 WK OB *twins July 09, 2024 2: 16pm 20 WK OB *TWINS* August 14, 2024 2:08pm 24 WK OB *TWINS* September 05, 2024 2:51 pm SCREENING September 11, 2024 9:5 0am 28 WK OB/GLUCOSE *TWINS* October 02, 2024 2:46pm R/O ROM October 09, 2024 1:30 pm Reason for Visit Admit Date Anxiety and depression July 09, 2024 2:16pm Celiac disease July 09, 2024 2: 16pm Dichorionic diamniotic twin gestation [facility] 2024 2:16pm Family history of hemophilia July 2:16pm History of suicidal ideation July 2:16pm LGSIL on Pap smear of cervix July 2:16pm Marijuana use July 09, 2024 2: 16pm July 09, 2024 2: 16pm PTSD (post-traumatic stress disorder) [facility] 2024 2:16pm Supervision of high-risk Zeynep 2024 2:16pm Anxiety and depression August 14 2:08pm Celiac disease August 14, 2024 2:08pm Dichorionic diamniotic twin gestation [facility] 2024 2:08pm Family history of hemophilia August 142024 2:08pm History of suicidal ideation August 142024 2:08pm LGSIL on Pap smear of cervix August 142024 2:08pm Marijuana use August 14, 2024 2:08pm August 14, 2024 2:08pm PTSD (post-traumatic stress disorder) [facility] 2024 2:08pm Supervision of high-risk [place] 2024 2:08pm Anxiety and depression September 05, 2024 2 :51pm Celiac disease September 05, 2024 2:51 pm Dichorionic diamniotic twin gestation [facility] 2024 2:51pm Family history of hemophilia September 05, 2024 2:51pm History of suicidal ideation September 05, 2024 2:51pm LGSIL on Pap smear of cervix September 05, 2024 2:51pm Marijuana use September 05, 2024 2:51 pm September 05, 2024 2:51 pm PTSD (post-traumatic stress disorder) [facility] 2024 2:51pm Supervision of high-risk September 05, 2024 2:51pm Abnormal glucose October 02, 2024 2:46 pm Anemia affecting October 02 2:46pm Anxiety and depression October 02, 2024 2 :46pm Celiac disease October 02, 2024 2:46 pm Dichorionic diamniotic twin gestation Ap ril 2024 2:46pm Family history of hemophilia October 02, 2024 2:46pm History of suicidal ideation October 02, 2024 2:46pm LGSIL on Pap smear of cervix October 02, 2024 2:46pm Marijuana use October 02, 2024 2:46 pm October 02, 2024 2:46 pm PTSD (post-traumatic stress disorder) Ap ril 2024 2:46pm Supervision of high-risk October 02, 2024 2:46pm Chief Complaint Admit Date 20 WK OB *TWINS* August 14, 2024 2:08pm 24 WK OB *TWINS* September 05, 2024 2:51 pm SCREENING September 11, 2024 9:5 0am 28 WK OB/GLUCOSE *TWINS* October 02, 2024 2:46pm R/O ROM October 09, 2024 1:30 pm 30 WK OB *TWINS* October 17, 2024 3:2 0pm R/O ROM October 17, 2024 10: 28pm R/O LABOR October 25, 2024 9:4 2am R/O LABOR October 25, 2024 10: 28am 32 WK OB *TWINS* October 29, 2024 2:4 7pm SPOTTING November 01, 2024 10:07a m SPOTTING November 01, 2024 11:37a m R/O LABOR November 07, 2024 10:05p m R/O LABOR November 08, 2024 1:34am Reason for Visit Admit Date Anxiety and depression August 14 2:08pm Celiac disease August 14, 2024 2:08pm Dichorionic diamniotic twin gestation [facility] 2024 2:08pm Family history of hemophilia August 142024 2:08pm History of suicidal ideation August 142024 2:08pm LGSIL on Pap smear of cervix August 142024 2:08pm Marijuana use August 14, 2024 2:08pm August 14, 2024 2:08pm PTSD (post-traumatic stress disorder) [facility] 2024 2:08pm Supervision of high-risk Febru tom 2024 2:08pm Anxiety and depression September 05, 2024 2 :51pm Celiac disease September 05, 2024 2:51 pm Dichorionic diamniotic twin gestation [facility] 2024 2:51pm Family history of hemophilia September 05, 2024 2:51pm History of suicidal ideation September 05, 2024 2:51pm LGSIL on Pap smear of cervix September 05, 2024 2:51pm Marijuana use September 05, 2024 2:51 pm September 05, 2024 2:51 pm PTSD (post-traumatic stress disorder) [facility] 2024 2:51pm Supervision of high-risk September 05, 2024 2:51pm Abnormal glucose October 02, 2024 2:46 pm Anemia affecting October 02 2:46pm Anxiety and depression October 02, 2024 2 :46pm Celiac disease October 02, 2024 2:46 pm Dichorionic diamniotic twin gestation Ap ril 2024 2:46pm Family history of hemophilia October 02, 2024 2:46pm History of suicidal ideation October 02, 2024 2:46pm LGSIL on Pap smear of cervix October 02, 2024 2:46pm Marijuana use October 02, 2024 2:46 pm October 02, 2024 2:46 pm PTSD (post-traumatic stress disorder) Ap ril 2024 2:46pm Supervision of high-risk October 02, 2024 2:46pm Abnormal glucose October 17, 2024 3:2 0pm Anemia affecting October 17, 2 025 3:20pm Anxiety and depression October 17, 2024 3:20pm Celiac disease October 17, 2024 3:2 0pm Dichorionic diamniotic twin gestation Ap ril 2024 3:20pm Family history of hemophilia October 17, 2024 3:20pm History of suicidal ideation October 17, 2024 3:20pm LGSIL on Pap smear of cervix October 17, 2024 3:20pm Marijuana use October 17, 2024 3:2 0pm October 17, 2024 3:2 0pm PTSD (post-traumatic stress disorder) Ap ril 2024 3:20pm Supervision of high-risk October 17, 2024 3:20pm Abnormal glucose October 29, 2024 2:4 7pm Anemia affecting October 29, 2 025 2:47pm Anxiety and depression October 29, 2024 2:47pm Celiac disease October 29, 2024 2:4 7pm Dichorionic diamniotic twin gestation Ap ril 2024 2:47pm Family history of hemophilia October 29, 2024 2:47pm History of suicidal ideation October 29, 2024 2:47pm LGSIL on Pap smear of cervix October 29, 2024 2:47pm Marijuana use October 29, 2024 2:4 7pm October 29, 2024 2:4 7pm PTSD (post-traumatic stress disorder) Ap ril 2024 2:47pm Supervision of high-risk October 29, 2024 2:47pm Chief Complaint Admit Date 20 WK OB *TWINS* August 14, 2024 2:08pm 24 WK OB *TWINS* September 05, 2024 2:51 pm SCREENING September 11, 2024 9:5 0am 28 WK OB/GLUCOSE *TWINS* October 02, 2024 2:46pm R/O ROM October 09, 2024 1:30 pm 30 WK OB *TWINS* October 17, 2024 3:2 0pm R/O ROM October 17, 2024 10: 28pm R/O LABOR October 25, 2024 9:4 2am R/O LABOR October 25, 2024 10: 28am 32 WK OB *TWINS* October 29, 2024 2:4 7pm SPOTTING November 01, 2024 10:07a m SPOTTING November 01, 2024 11:37a m R/O LABOR November 07, 2024 10:05p m R/O LABOR November 08, 2024 1:34am 34 WK OB *TWINS* November 13, 2024 2:56p m Reason for Visit Admit Date Anxiety and depression August 14 2:08pm Celiac disease August 14, 2024 2:08pm Dichorionic diamniotic twin gestation [facility] 2024 2:08pm Family history of hemophilia August 142024 2:08pm History of suicidal ideation August 142024 2:08pm LGSIL on Pap smear of cervix August 142024 2:08pm Marijuana use August 14, 2024 2:08pm August 14, 2024 2:08pm PTSD (post-traumatic stress disorder) [facility] 2024 2:08pm Supervision of high-risk Febru tom 2024 2:08pm Anxiety and depression September 05, 2024 2 :51pm Celiac disease September 05, 2024 2:51 pm Dichorionic diamniotic twin gestation [facility] 2024 2:51pm Family history of hemophilia September 05, 2024 2:51pm History of suicidal ideation September 05, 2024 2:51pm LGSIL on Pap smear of cervix September 05, 2024 2:51pm Marijuana use September 05, 2024 2:51 pm September 05, 2024 2:51 pm PTSD (post-traumatic stress disorder) [facility] 2024 2:51pm Supervision of high-risk September 05, 2024 2:51pm Abnormal glucose October 02, 2024 2:46 pm Anemia affecting October 02 2:46pm Anxiety and depression October 02, 2024 2 :46pm Celiac disease October 02, 2024 2:46 pm Dichorionic diamniotic twin gestation Ap ril 2024 2:46pm Family history of hemophilia October 02, 2024 2:46pm History of suicidal ideation October 02, 2024 2:46pm LGSIL on Pap smear of cervix October 02, 2024 2:46pm Marijuana use October 02, 2024 2:46 pm October 02, 2024 2:46 pm PTSD (post-traumatic stress disorder) Ap ril 2024 2:46pm Supervision of high-risk October 02, 2024 2:46pm Abnormal glucose October 17, 2024 3:2 0pm Anemia affecting October 17, 2 025 3:20pm Anxiety and depression October 17, 2024 3:20pm Celiac disease October 17, 2024 3:2 0pm Dichorionic diamniotic twin gestation Ap ril 2024 3:20pm Family history of hemophilia October 17, 2024 3:20pm History of suicidal ideation October 17, 2024 3:20pm LGSIL on Pap smear of cervix October 17, 2024 3:20pm Marijuana use October 17, 2024 3:2 0pm October 17, 2024 3:2 0pm PTSD (post-traumatic stress disorder) Ap ril 2024 3:20pm Supervision of high-risk October 17, 2024 3:20pm Abnormal glucose October 29, 2024 2:4 7pm Anemia affecting October 29, 2 025 2:47pm Anxiety and depression October 29, 2024 2:47pm Celiac disease October 29, 2024 2:4 7pm Dichorionic diamniotic twin gestation Ap ril 2024 2:47pm Family history of hemophilia October 29, 2024 2:47pm History of suicidal ideation October 29, 2024 2:47pm LGSIL on Pap smear of cervix October 29, 2024 2:47pm Marijuana use October 29, 2024 2:4 7pm October 29, 2024 2:4 7pm PTSD (post-traumatic stress disorder) Ap ril 2024 2:47pm Supervision of high-risk October 29, 2024 2:47pm Abnormal glucose November 13, 2024 2:56p m Anemia affecting November 13 2:56pm Anxiety and depression November 13, 2024 2: 56pm Celiac disease November 13, 2024 2:56p m Dichorionic diamniotic twin gestation Ma y 2024 2:56pm Family history of hemophilia November 13, 2 025 2:56pm History of suicidal ideation November 13, 2 025 2:56pm LGSIL on Pap smear of cervix November 13, 2 025 2:56pm Marijuana use November 13, 2024 2:56p m November 13, 2024 2:56p m PTSD (post-traumatic stress disorder) Ma y 2024 2:56pm Supervision of high-risk November 012024 2:56pm Chief Complaint Admit Date 20 WK OB *TWINS* August 14, 2024 2:08pm 24 WK OB *TWINS* September 05, 2024 2:51 pm SCREENING September 11, 2024 9:5 0am 28 WK OB/GLUCOSE *TWINS* October 02, 2024 2:46pm R/O ROM October 09, 2024 1:30 pm 30 WK OB *TWINS* October 17, 2024 3:2 0pm R/O ROM October 17, 2024 10: 28pm R/O LABOR October 25, 2024 9:4 2am R/O LABOR October 25, 2024 10: 28am 32 WK OB *TWINS* October 29, 2024 2:4 7pm SPOTTING November 01, 2024 10:07a m SPOTTING November 01, 2024 11:37a m R/O LABOR November 07, 2024 10:05p m R/O LABOR November 08, 2024 1:34am 34 WK OB *TWINS* November 13, 2024 2:56p m RULE OUT LABOR November 14, 2024 9:14p m Reason for Visit Admit Date Anxiety and depression August 14 2:08pm Celiac disease August 14, 2024 2:08pm Dichorionic diamniotic twin gestation [facility] 2024 2:08pm Family history of hemophilia August 142024 2:08pm History of suicidal ideation August 142024 2:08pm LGSIL on Pap smear of cervix August 142024 2:08pm Marijuana use August 14, 2024 2:08pm August 14, 2024 2:08pm PTSD (post-traumatic stress disorder) [facility] 2024 2:08pm Supervision of high-risk [facility] 2024 2:08pm Anxiety and depression September 05, 2024 2 :51pm Celiac disease September 05, 2024 2:51 pm Dichorionic diamniotic twin gestation [facility] 2024 2:51pm Family history of hemophilia September 05, 2024 2:51pm History of suicidal ideation September 05, 2024 2:51pm LGSIL on Pap smear of cervix September 05, 2024 2:51pm Marijuana use September 05, 2024 2:51 pm September 05, 2024 2:51 pm PTSD (post-traumatic stress disorder) [facility] 2024 2:51pm Supervision of high-risk September 05, 2024 2:51pm Abnormal glucose October 02, 2024 2:46 pm Anemia affecting October 02 2:46pm Anxiety and depression October 02, 2024 2 :46pm Celiac disease October 02, 2024 2:46 pm Dichorionic diamniotic twin gestation [facility] 2024 2:46pm Family history of hemophilia October 02, 2024 2:46pm History of suicidal ideation October 02, 2024 2:46pm LGSIL on Pap smear of cervix October 02, 2024 2:46pm Marijuana use October 02, 2024 2:46 pm October 02, 2024 2:46 pm PTSD (post-traumatic stress disorder) Ap ril 2024 2:46pm Supervision of high-risk October 02, 2024 2:46pm Abnormal glucose October 17, 2024 3:2 0pm Anemia affecting October 17, 2 025 3:20pm Anxiety and depression October 17, 2024 3:20pm Celiac disease October 17, 2024 3:2 0pm Dichorionic diamniotic twin gestation Ap ril 2024 3:20pm Family history of hemophilia October 17, 2024 3:20pm History of suicidal ideation October 17, 2024 3:20pm LGSIL on Pap smear of cervix October 17, 2024 3:20pm Marijuana use October 17, 2024 3:2 0pm October 17, 2024 3:2 0pm PTSD (post-traumatic stress disorder) Ap ril 2024 3:20pm Supervision of high-risk October 17, 2024 3:20pm Abnormal glucose October 29, 2024 2:4 7pm Anemia affecting October 29, 2 025 2:47pm Anxiety and depression October 29, 2024 2:47pm Celiac disease October 29, 2024 2:4 7pm Dichorionic diamniotic twin gestation Ap ril 2024 2:47pm Family history of hemophilia October 29, 2024 2:47pm History of suicidal ideation October 29, 2024 2:47pm LGSIL on Pap smear of cervix October 29, 2024 2:47pm Marijuana use October 29, 2024 2:4 7pm October 29, 2024 2:4 7pm PTSD (post-traumatic stress disorder) Ap ril 2024 2:47pm Supervision of high-risk October 29, 2024 2:47pm Abnormal glucose November 13, 2024 2:56p m Anemia affecting November 13 2:56pm Anxiety and depression November 13, 2024 2: 56pm Celiac disease November 13, 2024 2:56p m Dichorionic diamniotic twin gestation Ma y 2024 2:56pm Family history of hemophilia November 13, 2 025 2:56pm History of suicidal ideation November 13, 2 025 2:56pm LGSIL on Pap smear of cervix November 13, 2 025 2:56pm Marijuana use November 13, 2024 2:56p m November 13, 2024 2:56p m PTSD (post-traumatic stress disorder) Ma y 2024 2:56pm Supervision of high-risk November 012024 2:56pm Abnormal glucose November 14, 2024 9:12p m Anemia affecting November 14 9:12pm Celiac disease November 14, 2024 9:12p m Dichorionic diamniotic twin gestation Ma y 2024 9:12pm Family history of hemophilia November 14, 2 025 9:12pm November 14, 2024 9:12p m Status post section November 14, 2 025 9:12pm Supervision of high-risk November 012024 9:12pm Chief Complaint Admit Date 20 WK OB *TWINS* August 14, 2024 2:08pm 24 WK OB *TWINS* September 05, 2024 2:51 pm SCREENING September 11, 2024 9:5 0am 28 WK OB/GLUCOSE *TWINS* October 02, 2024 2:46pm R/O ROM October 09, 2024 1:30 pm 30 WK OB *TWINS* October 17, 2024 3:2 0pm R/O ROM October 17, 2024 10: 28pm R/O LABOR October 25, 2024 9:4 2am R/O LABOR October 25, 2024 10: 28am 32 WK OB *TWINS* October 29, 2024 2:4 7pm SPOTTING November 01, 2024 10:07a m SPOTTING November 01, 2024 11:37a m R/O LABOR November 07, 2024 10:05p m R/O LABOR November 08, 2024 1:34am 34 WK OB *TWINS* November 13, 2024 2:56p m RULE OUT LABOR November 14, 2024 9:14p m visit (obstetrics) November 28, 2024 3:28pm Reason for Visit Admit Date Anxiety and depression August 14 2:08pm Celiac disease August 14, 2024 2:08pm Family history of hemophilia August 142024 2:08pm History of suicidal ideation August 142024 2:08pm LGSIL on Pap smear of cervix August 142024 2:08pm Marijuana use August 14, 2024 2:08pm PTSD (post-traumatic stress disorder) [facility] 2024 2:08pm Dichorionic diamniotic twin gestation [facility] 2024 2:08pm August 14, 2024 2:08pm Supervision of high-risk [facility] [place] 2024 2:08pm Anxiety and depression September 05, 2024 2 :51pm Celiac disease September 05, 2024 2:51 pm Family history of hemophilia September 05, 2024 2:51pm History of suicidal ideation September 05, 2024 2:51pm LGSIL on Pap smear of cervix September 05, 2024 2:51pm Marijuana use September 05, 2024 2:51 pm PTSD (post-traumatic stress disorder) [facility] 2024 2:51pm Dichorionic diamniotic twin gestation [facility] 2024 2:51pm September 05, 2024 2:51 pm Supervision of high-risk September 05, 2024 2:51pm Anemia affecting October 02 2:46pm Anxiety and depression October 02, 2024 2 :46pm Celiac disease October 02, 2024 2:46 pm Family history of hemophilia October 02, 2024 2:46pm History of suicidal ideation October 02, 2024 2:46pm LGSIL on Pap smear of cervix October 02, 2024 2:46pm Marijuana use October 02, 2024 2:46 pm PTSD (post-traumatic stress disorder) Ap ril 2024 2:46pm Abnormal glucose October 02, 2024 2:46 pm Dichorionic diamniotic twin gestation Ap ril 2024 2:46pm October 02, 2024 2:46 pm Supervision of high-risk October 02, 2024 2:46pm Anemia affecting October 17, 2 025 3:20pm Anxiety and depression October 17, 2024 3:20pm Celiac disease October 17, 2024 3:2 0pm Family history of hemophilia October 17, 2024 3:20pm History of suicidal ideation October 17, 2024 3:20pm LGSIL on Pap smear of cervix October 17, 2024 3:20pm Marijuana use October 17, 2024 3:2 0pm PTSD (post-traumatic stress disorder) Ap ril 2024 3:20pm Abnormal glucose October 17, 2024 3:2 0pm Dichorionic diamniotic twin gestation Ap ril 2024 3:20pm October 17, 2024 3:2 0pm Supervision of high-risk October 17, 2024 3:20pm Anemia affecting October 29, 2 025 2:47pm Anxiety and depression October 29, 2024 2:47pm Celiac disease October 29, 2024 2:4 7pm Family history of hemophilia October 29, 2024 2:47pm History of suicidal ideation October 29, 2024 2:47pm LGSIL on Pap smear of cervix October 29, 2024 2:47pm Marijuana use October 29, 2024 2:4 7pm PTSD (post-traumatic stress disorder) Ap ril 2024 2:47pm Abnormal glucose October 29, 2024 2:4 7pm Dichorionic diamniotic twin gestation Ap ril 2024 2:47pm October 29, 2024 2:4 7pm Supervision of high-risk October 29, 2024 2:47pm Anemia affecting November 13 2:56pm Anxiety and depression November 13, 2024 2: 56pm Celiac disease November 13, 2024 2:56p m Family history of hemophilia November 13, 2 025 2:56pm History of suicidal ideation November 13, 2 025 2:56pm LGSIL on Pap smear of cervix November 13, 2 025 2:56pm Marijuana use November 13, 2024 2:56p m PTSD (post-traumatic stress disorder) Ma y 2024 2:56pm Abnormal glucose November 13, 2024 2:56p m Dichorionic diamniotic twin gestation Ma y 2024 2:56pm November 13, 2024 2:56p m Supervision of high-risk November 012024 2:56pm Anemia affecting November 14 9:12pm Celiac disease November 14, 2024 9:12p m Family history of hemophilia November 14, 2 025 9:12pm Status post section November 14, 2 025 9:12pm Abnormal glucose November 14, 2024 9:12p m Dichorionic diamniotic twin gestation Ma y 2024 9:12pm November 14, 2024 9:12p m Supervision of high-risk November 012024 9:12pm Routine Follow-Up November 28, 2 025 3:28pm Chief Complaint Admit Date 24 WK OB *TWINS* September 05, 2024 2:51 pm SCREENING September 11, 2024 9:5 0am 28 WK OB/GLUCOSE *TWINS* October 02, 2024 2:46pm R/O ROM October 09, 2024 1:30 pm 30 WK OB *TWINS* October 17, 2024 3:2 0pm R/O ROM October 17, 2024 10: 28pm R/O LABOR October 25, 2024 9:4 2am R/O LABOR October 25, 2024 10: 28am 32 WK OB *TWINS* October 29, 2024 2:4 7pm SPOTTING November 01, 2024 10:07a m SPOTTING November 01, 2024 11:37a m R/O LABOR November 07, 2024 10:05p m R/O LABOR November 08, 2024 1:34am 34 WK OB *TWINS* November 13, 2024 2:56p m RULE OUT LABOR November 14, 2024 9:14p m visit (obstetrics) November 28, 2024 3:28pm visit (obstetrics) December 26, 2024 10:16am Reason for Visit Admit Date Anxiety and depression September 05, 2024 2 :51pm Celiac disease September 05, 2024 2:51 pm Family history of hemophilia September 05, 2024 2:51pm History of suicidal ideation September 05, 2024 2:51pm LGSIL on Pap smear of cervix September 05, 2024 2:51pm Marijuana use September 05, 2024 2:51 pm PTSD (post-traumatic stress disorder) [facility] 2024 2:51pm Dichorionic diamniotic twin gestation [facility] 2024 2:51pm September 05, 2024 2:51 pm Supervision of high-risk September 05, 2024 2:51pm Anemia affecting October 02 2:46pm Anxiety and depression October 02, 2024 2 :46pm Celiac disease October 02, 2024 2:46 pm Family history of hemophilia October 02, 2024 2:46pm History of suicidal ideation October 02, 2024 2:46pm LGSIL on Pap smear of cervix October 02, 2024 2:46pm Marijuana use October 02, 2024 2:46 pm PTSD (post-traumatic stress disorder) Ap ril 2024 2:46pm Abnormal glucose October 02, 2024 2:46 pm Dichorionic diamniotic twin gestation Ap ril 2024 2:46pm October 02, 2024 2:46 pm Supervision of high-risk October 02, 2024 2:46pm Anemia affecting October 17, 2 025 3:20pm Anxiety and depression October 17, 2024 3:20pm Celiac disease October 17, 2024 3:2 0pm Family history of hemophilia October 17, 2024 3:20pm History of suicidal ideation October 17, 2024 3:20pm LGSIL on Pap smear of cervix October 17, 2024 3:20pm Marijuana use October 17, 2024 3:2 0pm PTSD (post-traumatic stress disorder) Ap ril 2024 3:20pm Abnormal glucose October 17, 2024 3:2 0pm Dichorionic diamniotic twin gestation Ap ril 2024 3:20pm October 17, 2024 3:2 0pm Supervision of high-risk October 17, 2024 3:20pm Anemia affecting October 29, 2 025 2:47pm Anxiety and depression October 29, 2024 2:47pm Celiac disease October 29, 2024 2:4 7pm Family history of hemophilia October 29, 2024 2:47pm History of suicidal ideation October 29, 2024 2:47pm LGSIL on Pap smear of cervix October 29, 2024 2:47pm Marijuana use October 29, 2024 2:4 7pm PTSD (post-traumatic stress disorder) Ap ril 2024 2:47pm Abnormal glucose October 29, 2024 2:4 7pm Dichorionic diamniotic twin gestation Ap ril 2024 2:47pm October 29, 2024 2:4 7pm Supervision of high-risk October 29, 2024 2:47pm Anemia affecting November 13 2:56pm Anxiety and depression November 13, 2024 2: 56pm Celiac disease November 13, 2024 2:56p m Family history of hemophilia November 13, 2 025 2:56pm History of suicidal ideation November 13, 2 025 2:56pm LGSIL on Pap smear of cervix November 13, 2 025 2:56pm Marijuana use November 13, 2024 2:56p m PTSD (post-traumatic stress disorder) Ma y 2024 2:56pm Abnormal glucose November 13, 2024 2:56p m Dichorionic diamniotic twin gestation Ma y 2024 2:56pm November 13, 2024 2:56p m Supervision of high-risk November 012024 2:56pm Anemia affecting November 14 9:12pm Celiac disease November 14, 2024 9:12p m Family history of hemophilia November 14, 2 025 9:12pm Status post section November 14, 2 025 9:12pm Abnormal glucose November 14, 2024 9:12p m Dichorionic diamniotic twin gestation Ma y 2024 9:12pm November 14, 2024 9:12p m Supervision of high-risk November 012024 9:12pm Status post section November 28, 2 025 3:28pm Nexplanon insertion November 28, 2024 3:28p m Routine Follow-Up November 28, 2 025 3:28pm Routine Follow-Up December 26, 2024 10:16am Health Concerns Infection Onset Date Last Indicated Resolved Time COVID-19 Confirmed 08/04/2022 08/04/2022 Additional Source Comments INFORMATION SOURCE (unrecogn ized section and content) DATE CREATED AUTHOR 01/21/2018 [facility] DATE CREATED AUTHOR AUTHOR'S ORGANIZ ATION 08/23/2019 [facility] DATE CREATED AUTHOR AUTHOR'S ORGANIZ ATION 08/23/2019 [facility] DATE CREATED AUTHOR AUTHOR'S ORGANIZ ATION 12/09/2023 [facility] ([place]) DATE CREATED AUTHOR AUTHOR'S ORGANIZ ATION 05/10/2024 [facility] DATE CREATED AUTHOR AUTHOR'S ORGANIZ ATION 11/08/2024 [facility] DATE CREATED AUTHOR AUTHOR'S ORGANIZ ATION 11/11/[address] [facility] DATE CREATED AUTHOR AUTHOR'S ORGANIZ ATION 01/01/2025 [facility] Source Comments (unrecognize d section and content) In the event this informatio n is protected by the Federal Confidentiality of Alcohol and Drug Abuse Patient Records regulations: The Federal rules restrict any use of the information to criminally investigate or prosecute any alcohol or drug abuse patient.[facility] the event this information is protected by the Federal Confidentiality of Alcohol and Drug Abuse Patient Records regulations: The Federal rules restrict any use of the information to criminally investigate or prosecute any alcohol or drug abuse patient.[facility] System[facility] the event this information is protected by the Federal Confidentiality of Alcohol and Drug Abuse Patient Records regulations: The Federal rules restrict any use of the information to criminally investigate or prosecute any alcohol or drug abuse patient.[facility] System[facility] the event this information is protected by the Federal Confidentiality of Alcohol and Drug Abuse Patient Records regulations: The Federal rules restrict any use of the information to criminally investigate or prosecute any alcohol or drug abuse patient.[facility] System[facility] the event this information is protected by the Federal Confidentiality of Alcohol and Drug Abuse Patient Records regulations: The Federal rules restrict any use of the information to criminally investigate or prosecute any alcohol or drug abuse patient.[facility] System[facility] the event this information is protected by the Federal Confidentiality of Alcohol and Drug Abuse Patient Records regulations: The Federal rules restrict any use of the information to criminally investigate or prosecute any alcohol or drug abuse patient.[facility] System[facility] the event this information is protected by the Federal Confidentiality of Alcohol and Drug Abuse Patient Records regulations: The Federal rules restrict any use of the information to criminally investigate or prosecute any alcohol or drug abuse patient.[facility] System[facility] the event this information is protected by the Federal Confidentiality of Alcohol and Drug Abuse Patient Records regulations: The Federal rules restrict any use of the information to criminally investigate or prosecute any alcohol or drug abuse patient.[facility] Reason for Visit (unrecogniz ed section and content) Reason Comments Headache Pt reported +Covid e xposure Barros pain rated 3, sore throat pain rated 5, x4 days Reason Comments Headache Sxs for 2 or three d ays,headache is really intense, vomiting due to pain from headache. Slight fever last night 99.5, Reason Comments Results Reason Comments Headache Pt started to get mi graine last night she has thrown up 5 times today and needs a DR note, She is 28 weeks prego. Reason Comments Nausea & Vomiting Pt reported 29 wk [address] station , denied vaginal spotting/cramping, + Covid 08/04/2022, Barros pain rated 3, onset AM. Reason Comments Tooth pain Sxs started last nig ht left side Reason Comments Viral Syndrome Sore throat and coug h, work sent her. Is 22 weeks with twins Reason Comments Ear Problem Ear is painful, star stephanie today. Care Teams (unrecognized sec tion and content) Yard Rigger Relationship Specialty Start Date End Date Fabiola Bearden PCP - General Family Practice 07/13/17 Yard Rigger Relationship Specialty Start Date End Date Fabiola Bearden DO PCP - General Family Medicine 07/13/17 Yard Rigger Relationship Specialty Start Date End Date Fabiola Bearden DO PCP - General Family Medicine 07/13/17 Team Status: Active Member Role Status Dates Dr. Fabiola Bearden DO Family Provider Active Dr. Fabiola Bearden DO Primary Care Provider Active Team Status: Inactive Member Role Status Dates Dr. Fabiola Bearden DO Primary Care Provider, Referri ng Provider Active Dr. Devora Olsen MD Attending Provider Active Team Status: Inactive Member Role Status Dates Dr. Fabiola Bearden DO Primary Care Provider, Referri ng Provider Active Dr. Ramandeep Ferguson DO Attending Provider Activ e Team Status: Inactive Member Role Status Dates Dr. Fabiola Bearden DO Primary Care Provider, Referri ng Provider Active Monisha Adler CNM Attending Provider Active Team Status: Active Member Role Status Dates Dr. Fabiola Bearden DO Primary Care Provider Active Monisha Adler CNM Attending Provider, Other Provid er Active Team Status: Active Member Role Status Dates Dr. Fabiola Bearden DO Primary Care Provider Active Dr. Ramandeep Ferguson DO Attending Provider, Othe r Provider Active Team Status: Inactive Member Role Status Dates Dr. Fabiola Bearden DO Primary Care Provider Active Dr. Ramandeep Ferguson DO Attending Provider, Refe rring Provider Active Team Status: Inactive Member Role Status Dates Dr. Fabiola Bearden DO Primary Care Provider Active Monisha Adler CNM Attending Provider Active Team Status: Active Member Role Status Dates Dr. Fabiola Bearden DO Primary Care Provider Active Dr. Devora Olsen MD Attending Provider Active Team Status: Inactive Member Role Status Dates Dr. Fabiola Bearden DO Primary Care Provider Active Dr. Ramandeep Ferguson DO Attending Provider Activ e Team Status: Inactive Member Role Status Dates Dr. Fabiola Bearden DO Primary Care Provider Active Dr. Devora Olsen MD Attending Provider Active Yard Rigger Relationship Specialty Start Date End Date Fabiola Bearden DO PCP - General Family Medicine 07/13/17 Team Status: Inactive Member Role Status Dates Dr. Fabiola Bearden DO Primary Care Provider Active Dr. Prasanth Villatoro MD Emergency Provider Active Team Status: Inactive Member Role Status Dates Dr. Fabiola Bearden DO Primary Care Provider Active Dr. Prasanth Villatoro MD Attending Provider, Emergency Provider Active Team Status: Inactive Member Role Status Dates Dr. Fabiola Bearden DO Primary Care Provider Active Dr. Devora Olsen MD Attending Provider, Referr ing Provider Active Team Status: Active Member Role Status Dates Dr. Fabiola Bearden DO Primary Care Provider Active Dr. Devora Olsen MD Attending Provider, Referr ing Provider Active Team Status: Inactive Member Role Status Dates Dr. Fabiola Bearden DO Primary Care Provider Active Monisha Adler CNM Attending Provider, Referring Pr ovider Active Team Status: Active Member Role Status Dates Dr. Fabiola Bearden DO Primary Care Provider Active Monisha Adler CNM Referring Provider, Other Provid er Active Dr. Ramandeep Ferguson DO Attending Provider Activ e Team Status: Active Member Role Status Dates Dr. Fabiola Bearden DO Primary Care Provider Active Dr. Ramandeep Ferguson , DO Admit Prov ider, Attending Provider, Referring Provider, Other Provider Active Team Status: Inactive Member Role Status Dates Dr. Fabiola Bearden DO Primary Care Provider Active Dr. Ramandeep Ferguson DO Admit Prov ider, Attending Provider, Referring Provider Active Yard Rigger Relationship Specialty Start Date End Date Fabiola Bearden DO PCP - General Family Medicine 07/13/17 Team Status: Active Member Role Status Dates Dr. Fabiola Bearden DO Primary Care Provider Active Team Status: Inactive Member Role Status Dates Dr. Fabiola Bearden DO Primary Care Provider Active Start: May 22, 2024 End: May 22, 2024 Jaya Leonard CNM Attending Provider Active S tart: May 22, 2024 End: May 22, 2024 Jaya Leonard CNM Referring Provider Active S tart: May 22, 2024 End: May 22, 2024 Team Status: Inactive Member Role Status Dates Dr. Fabiola Bearden DO Primary Care Provider Active Start: June 07, 2024 End: June 07, 2024 Dr. aFbiola Bearden DO Referring Provider Active Start: June 07, 2024 End: June 07, 2024 Dr. Ramandeep Ferguson DO Attending Provider Activ e Start: June 07, 2024 End: June 07, 2024 Team Status: Inactive Member Role Status Dates Dr. Fabiola Bearden DO Primary Care Provider Active Start: July 09, 2024 End: July 09, 2024 Dr. Fabiola Bearden DO Referring Provider Active Start: July 09, 2024 End: July 09, 2024 Dr. Ramandeep Ferguson DO Attending Provider Activ e Start: July 09, 2024 End: July 09, 2024 Team Status: Inactive Member Role Status Dates Dr. Fabiola Bearden DO Primary Care Provider Active Start: August 14, 2024 End: August 14, 2024 Dr. Fabiola Bearden DO Referring Provider Active Start: August 14, 2024 End: August 14, 2024 Dr. Devora Olsen MD Attending Provider Active Start: August 14, 2024 End: August 14, 2024 Team Status: Inactive Member Role Status Dates Dr. Fabiola Bearden DO Primary Care Provider Active Start: September 05, 2024 End: September 05, 2024 Dr. Fabiola Bearden DO Referring Provider Active Start: September 05, 2024 End: September 05, 2024 Dr. Devora Olsen MD Attending Provider Active Start: September 05, 2024 End: September 05, 2024 Team Status: Inactive Member Role Status Dates Dr. Fabiola Bearden DO Primary Care Provider Active Start: September 05, 2024 End: September 05, 2024 Dr. Ramandeep Ferguson DO Attending Provider Activ e Start: September 05, 2024 End: September 05, 2024 Dr. Ramandeep Ferguson DO Referring Provider Activ e Start: September 05, 2024 End: September 05, 2024 Team Status: Active Member Role Status Dates Dr. Fabiola Bearden DO Primary Care Provider Active Start: September 11, 2024 Dr. Devora Olsen MD Attending Provider Active Start: September 11, 2024 Dr. Devora Olsen MD Referring Provider Active Start: September 11, 2024 Team Status: Inactive Member Role Status Dates Dr. Fabiola Bearden DO Primary Care Provider Active Start: September 11, 2024 End: September 11, 2024 Dr. Devora Olsen MD Attending Provider Active Start: September 11, 2024 End: September 11, 2024 Dr. Devora Olsen MD Referring Provider Active Start: September 11, 2024 End: September 11, 2024 Team Status: Inactive Member Role Status Dates Dr. Fabiola Bearden DO Primary Care Provider Active Start: October 02, 2024 End: October 02, 2024 Dr. Fabiola Bearden DO Referring Provider Active Start: October 02, 2024 End: October 02, 2024 Dr. Ramandeep Ferguson DO Attending Provider Activ e Start: October 02, 2024 End: October 02, 2024 Team Status: Inactive Member Role Status Dates Dr. Fabiola Bearden DO Primary Care Provider Active Start: October 09, 2024 End: October 09, 2024 Dr. Devora Olsen MD Attending Provider Active Start: October 09, 2024 End: October 09, 2024 Dr. Devora Olsen MD Referring Provider Active Start: October 09, 2024 End: October 09, 2024 Team Status: Inactive Member Role Status Dates Dr. Fabiola Bearden DO Primary Care Provider Active Start: October 17, 2024 End: October 17, 2024 Dr. Fabiola Bearden DO Referring Provider Active Start: October 17, 2024 End: October 17, 2024 Dr. Devora Olsen MD Attending Provider Active Start: October 17, 2024 End: October 17, 2024 Team Status: Active Member Role Status Dates Dr. Fabiola Bearden DO Primary Care Provider Active Start: October 17, 2024 Dr. Devora Olsen MD Attending Provider Active Start: October 17, 2024 Dr. Devora Olsen MD Referring Provider Active Start: October 17, 2024 Dr. Devora Olsen MD Other Provider Active Start: October 17, 2024 Team Status: Inactive Member Role Status Dates Dr. Fabiola Bearden DO Primary Care Provider Active Start: October 25, 2024 End: October 25, 2024 Dr. Devora Olsen MD Attending Provider Active Start: October 25, 2024 End: October 25, 2024 Dr. Devora Olsen MD Referring Provider Active Start: October 25, 2024 End: October 25, 2024 Team Status: Active Member Role Status Dates Dr. Fabiola Bearden DO Primary Care Provider Active Start: October 25, 2024 Dr. Devora Olsen MD Attending Provider Active Start: October 25, 2024 Dr. Devora Olsen MD Referring Provider Active Start: October 25, 2024 Dr. Devora Olsen MD Other Provider Active Start: October 25, 2024 Team Status: Inactive Member Role Status Dates Dr. Fabiola Bearden DO Primary Care Provider Active Start: October 29, 2024 End: October 29, 2024 Dr. Fabiola Bearden DO Referring Provider Active Start: October 29, 2024 End: October 29, 2024 Dr. Ramandeep Ferguson DO Attending Provider Activ e Start: October 29, 2024 End: October 29, 2024 Team Status: Inactive Member Role Status Dates Dr. Fabiola Bearden DO Primary Care Provider Active Start: November 01, 2024 End: November 01, 2024 Dr. Devora Olsen MD Attending Provider Active Start: November 01, 2024 End: November 01, 2024 Dr. Devora Olsen MD Referring Provider Active Start: November 01, 2024 End: November 01, 2024 Team Status: Active Member Role Status Dates Dr. Fabiola Bearden DO Primary Care Provider Active Start: November 01, 2024 Dr. Devora Olsen MD Attending Provider Active Start: November 01, 2024 Dr. Devora Olsen MD Referring Provider Active Start: November 01, 2024 Dr. Devora Olsen MD Other Provider Active Start: November 01, 2024 Team Status: Inactive Member Role Status Dates Dr. Fabiola Bearden DO Primary Care Provider Active Start: November 07, 2024 End: November 08, 2024 Dr. Devora Olsen MD Attending Provider Active Start: November 07, 2024 End: November 08, 2024 Dr. Devora Olsen MD Referring Provider Active Start: November 07, 2024 End: November 08, 2024 Team Status: Active Member Role Status Dates Dr. Fabiola Bearden DO Primary Care Provider Active Start: November 08, 2024 Dr. Devora Olsen MD Attending Provider Active Start: November 08, 2024 Dr. Devora Olsen MD Referring Provider Active Start: November 08, 2024 Dr. 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 Fabiola Bearden DO Primary Care Provider Active Start: November 13, 2024 End: November 13, 2024 Dr. Fabiola Bearden DO Referring Provider Active Start: November 13, 2024 End: November 13, 2024 Dr. Devora Olsen MD Attending Provider Active Start: November 13, 2024 End: November 13, 2024 Team Status: Active Member Role Status Dates Dr. Fabiola Bearden DO Primary Care Provider Active Start: November 13, 2024 Dr. Devora Olsen MD Attending Provider Active Start: November 13, 2024 Dr. Devora Olsen MD Referring Provider Active Start: November 13, 2024 Team Status: Inactive Member Role Status Dates Dr. Fabiola Bearden DO Primary Care Provider Active Start: November 14, 2024 End: November 16, 2024 Dr. Ramandeep Ferguson , DO Admit Provider Active Start: November 14, 2024 End: November 16, 2024 Dr. Ramandeep Ferguson , DO Attending Provider Activ e Start: November 14, 2024 End: November 16, 2024 Dr. Ramandeep Ferguson DO Referring Provider Activ e Start: November 14, 2024 End: November 16, 2024 Team Status: Active Member Role Status Dates Dr. Fabiola Bearden DO Primary Care Provider Active Start: November 14, 2024 Dr. Ramandeep Ferguson DO Admit Provider Active Start: November 14, 2024 Dr. Ramandeep Ferguson DO Attending Provider Activ e Start: November 14, 2024 Dr. Ramandeep Ferguson DO Referring Provider Activ e Start: November 14, 2024 Dr. Ramandeep Ferguson DO Other Provider Active Start: November 14, 2024 Team Status: Active Member Role Status Dates Dr. Fabiola Bearden DO Primary Care Provider Active Start: November 15, 2024 Dr. Ramandeep Ferguson , DO Admit Provider Active Start: November 15, 2024 Dr. Ramandeep Ferguson , DO Referring Provider Activ e Start: November 15, 2024 Dr. Ramandeep Ferguson , DO Other Provider Active Start: November 15, 2024 Dr. Devora Olsen MD Attending Provider Active Start: November 15, 2024 Team Status: Inactive Member Role Status Dates Dr. Fabiola Bearden DO Primary Care Provider Active Start: November 13, 2024 End: November 13, 2024 Dr. Devora Olsen MD Attending Provider Active Start: November 13, 2024 End: November 13, 2024 Dr. Devora Olsen MD Referring Provider Active Start: November 13, 2024 End: November 13, 2024 Team Status: Active Member Role Status Dates Dr. Fabiola Bearden DO Primary Care Provider Active Start: November 16, 2024 Dr. Ramandeep Ferguson DO Admit Provider Active Start: November 16, 2024 Dr. Ramandeep Ferguson DO Referring Provider Activ e Start: November 16, 2024 Dr. Ramandeep Ferguson DO Other Provider Active Start: November 16, 2024 Dr. Devora Olsen MD Attending Provider Active Start: November 16, 2024 Team Status: Inactive Member Role Status Dates Dr. Fabiola Bearden DO Primary Care Provider Active Start: November 28, 2024 End: November 28, 2024 Dr. Fabiola Bearden DO Referring Provider Active Start: November 28, 2024 End: November 28, 2024 Dr. Ramandeep Ferguson DO Attending Provider Activ e Start: November 28, 2024 End: November 28, 2024 Team Status: Inactive Member Role Status Dates Dr. Fabiola Bearden DO Primary Care Provider Active Start: December 26, 2024 End: December 26, 2024 Dr. Fabiola Bearden DO Referring Provider Active Start: December 26, 2024 End: December 26, 2024 Dr. Ramandeep Ferguson DO Attending Provider Activ e Start: December 26, 2024 End: December 26, 2024 Team Status: Active Member Role/Relationship Status Dates Dr. Fabiola Bearden DO Primary Care Provider Active Team Status: Inactive Member Role/Relationship Status Dates Dr. Fabiola Bearden DO Primary Care Provider Active Start: September 05, 2024 End: September 05, 2024 Dr. Fabiola Bearden DO Referring Provider Active Start: September 05, 2024 End: September 05, 2024 Dr. Devora Olsen MD Attending Provider Active Start: September 05, 2024 End: September 05, 2024 Team Status: Inactive Member Role/Relationship Status Dates Dr. Fabiola Bearden DO Primary Care Provider Active Start: September 05, 2024 End: September 05, 2024 Dr. Ramandeep Ferguson DO Attending Provider Activ e Start: September 05, 2024 End: September 05, 2024 Dr. Ramandeep Ferguson DO Referring Provider Activ e Start: September 05, 2024 End: September 05, 2024 Team Status: Inactive Member Role/Relationship Status Dates Dr. Fabiola Bearden DO Primary Care Provider Active Start: September 11, 2024 End: September 11, 2024 Dr. Devora Olsen MD Attending Provider Active Start: September 11, 2024 End: September 11, 2024 Dr. Devora Olsen MD Referring Provider Active Start: September 11, 2024 End: September 11, 2024 Team Status: Inactive Member Role/Relationship Status Dates Dr. Fabiola Bearden DO Primary Care Provider Active Start: October 02, 2024 End: October 02, 2024 Dr. Fabiola Bearden DO Referring Provider Active Start: October 02, 2024 End: October 02, 2024 Dr. Ramandeep Ferguson DO Attending Provider Activ e Start: October 02, 2024 End: October 02, 2024 Team Status: Inactive Member Role/Relationship Status Dates Dr. Fabiola Bearden DO Primary Care Provider Active Start: October 09, 2024 End: October 09, 2024 Dr. Devora Olsen MD Attending Provider Active Start: October 09, 2024 End: October 09, 2024 Dr. Devora Olsen MD Referring Provider Active Start: October 09, 2024 End: October 09, 2024 Team Status: Inactive Member Role/Relationship Status Dates Dr. Fabiola Bearden DO Primary Care Provider Active Start: October 17, 2024 End: October 17, 2024 Dr. Fabiola Bearden DO Referring Provider Active Start: October 17, 2024 End: October 17, 2024 Dr. Devora Olsen MD Attending Provider Active Start: October 17, 2024 End: October 17, 2024 Team Status: Active Member Role/Relationship Status Dates Dr. Fabiola Bearden DO Primary Care Provider Active Start: October 17, 2024 Dr. Devora Olsen MD Attending Provider Active Start: October 17, 2024 Dr. Devora Olsen MD Referring Provider Active Start: October 17, 2024 Dr. Devora Olsen MD Other Provider Active Start: October 17, 2024 Team Status: Inactive Member Role/Relationship Status Dates Dr. Fabiola Bearden DO Primary Care Provider Active Start: October 25, 2024 End: October 25, 2024 Dr. Devora Olsen MD Attending Provider Active Start: October 25, 2024 End: October 25, 2024 Dr. Devora Olsen MD Referring Provider Active Start: October 25, 2024 End: October 25, 2024 Team Status: Active Member Role/Relationship Status Dates Dr. Fabiola Bearden DO Primary Care Provider Active Start: October 25, 2024 Dr. Devora Olsen MD Attending Provider Active Start: October 25, 2024 Dr. Devora Olsen MD Referring Provider Active Start: October 25, 2024 Dr. Devora Olsen MD Other Provider Active Start: October 25, 2024 Team Status: Inactive Member Role/Relationship Status Dates Dr. Fabiola Bearden DO Primary Care Provider Active Start: October 29, 2024 End: October 29, 2024 Dr. Fabiola Bearden DO Referring Provider Active Start: October 29, 2024 End: October 29, 2024 Dr. Ramandeep Ferguson DO Attending Provider Activ e Start: October 29, 2024 End: October 29, 2024 Team Status: Inactive Member Role/Relationship Status Dates Dr. Fabiola Bearden DO Primary Care Provider Active Start: November 01, 2024 End: November 01, 2024 Dr. Devora Olsen MD Attending Provider Active Start: November 01, 2024 End: November 01, 2024 Dr. Devora Olsen MD Referring Provider Active Start: November 01, 2024 End: November 01, 2024 Team Status: Active Member Role/Relationship Status Dates Dr. Fabiola Bearden DO Primary Care Provider Active Start: November 01, 2024 Dr. Devora Olsen MD Attending Provider Active Start: November 01, 2024 Dr. Devora Olsen MD Referring Provider Active Start: November 01, 2024 Dr. Devora Olsen MD Other Provider Active Start: November 01, 2024 Team Status: Inactive Member Role/Relationship Status Dates Dr. Fabiola Bearden DO Primary Care Provider Active Start: November 07, 2024 End: November 08, 2024 Dr. Devora Olsen MD Attending Provider Active Start: November 07, 2024 End: November 08, 2024 Dr. Devora Olsen MD Referring Provider Active Start: November 07, 2024 End: November 08, 2024 Team Status: Active Member Role/Relationship Status Dates Dr. Fabiola Bearden DO Primary Care Provider Active Start: November 08, 2024 Dr. Devora Olsen MD Attending Provider Active Start: November 08, 2024 Dr. Devora Olsen MD Referring Provider Active Start: November 08, 2024 Dr. Devora Olsen MD Other Provider Active Start: November 08, 2024 Team Status: Inactive Member Role/Relationship Status Dates Dr. Fabiola Bearden DO Primary Care Provider Active Start: November 13, 2024 End: November 13, 2024 Dr. Fabiola Bearden DO Referring Provider Active Start: November 13, 2024 End: November 13, 2024 Dr. Devora Olsen MD Attending Provider Active Start: November 13, 2024 End: November 13, 2024 Team Status: Inactive Member Role/Relationship Status Dates Dr. Fabiola Bearden DO Primary Care Provider Active Start: November 13, 2024 End: November 13, 2024 Dr. Devora Olsen MD Attending Provider Active Start: November 13, 2024 End: November 13, 2024 Dr. Devora Olsen MD Referring Provider Active Start: November 13, 2024 End: November 13, 2024 Team Status: Inactive Member Role/Relationship Status Dates Dr. Fabiola Bearden DO Primary Care Provider Active Start: November 14, 2024 End: November 16, 2024 Dr. Ramandeep Ferguson DO Admit Provider Active Start: November 14, 2024 End: November 16, 2024 Dr. Ramandeep Ferguson DO Attending Provider Activ e Start: November 14, 2024 End: November 16, 2024 Dr. Ramandeep Ferguson DO Referring Provider Activ e Start: November 14, 2024 End: November 16, 2024 Team Status: Active Member Role/Relationship Status Dates Dr. Fabiola Bearden , Primary Care Provider Active Start: November 14, 2024 Dr. Ramandeep Ferguson , Admit Provider Active Start: November 14, 2024 Dr. Ramandeep Ferguson DO Attending Provider Activ e Start: November 14, 2024 Dr. Ramandeep Ferguson DO Referring Provider Activ e Start: November 14, 2024 Dr. Ramandeep Ferguson , DO Other Provider Active Start: November 14, 2024 Team Status: Active Member Role/Relationship Status Dates Dr. Fabiola Bearden , DO Primary Care Provider Active Start: November 15, 2024 Dr. Ramandeep Ferguson , Admit Provider Active Start: November 15, 2024 Dr. Ramandeep Ferguson DO Referring Provider Activ e Start: November 15, 2024 Dr. Ramandeep Ferguson DO Other Provider Active Start: November 15, 2024 Dr. Devora Olsen MD Attending Provider Active Start: November 15, 2024 Team Status: Active Member Role/Relationship Status Dates Dr. Fabiola Bearden DO Primary Care Provider Active Start: November 16, 2024 Dr. Ramandeep Ferguson , Admit Provider Active Start: November 16, 2024 Dr. Ramandeep Ferguson DO Referring Provider Activ e Start: November 16, 2024 Dr. Ramandeep Ferguson DO Other Provider Active Start: November 16, 2024 Dr. Devora Olsen MD Attending Provider Active Start: November 16, 2024 Team Status: Inactive Member Role/Relationship Status Dates Dr. Fabiola Bearden DO Primary Care Provider Active Start: November 28, 2024 End: November 28, 2024 Dr. Fabiola Bearden , DO Referring Provider Active Start: November 28, 2024 End: November 28, 2024 Dr. Ramandeep Ferguson DO Attending Provider Activ e Start: November 28, 2024 End: November 28, 2024 Team Status: Inactive Member Role/Relationship Status Dates Dr. Fabiola Bearden DO Primary Care Provider Active Start: December 26, 2024 End: December 26, 2024 Dr. Fabiola Bearden DO Referring Provider Active Start: December 26, 2024 End: December 26, 2024 Dr. Ramandeep Ferguson DO Attending Provider Activ e Start: December 26, 2024 End: December 26, 2024 Team Status: Inactive Member Role/Relationship Status Dates Dr. Fabiola Bearden DO Primary Care Provider Active Start: December 26, 2024 End: December 26, 2024 Dr. Ramandeep Ferguson DO Attending Provider Activ e Start: December 26, 2024 End: December 26, 2024 Dr. Ramandeep Ferguson DO Referring Provider Activ e Start: December 26, 2024 End: December 26, 2024 Goals (unrecognized section and content) Goals may be documented in a n alternate section FOR RECORDS PERTAINING TO PATIENTS WHO ARE OR HAVE BEEN ENROLLED IN A CHEMICAL DEPENDENCY/SUBSTANCEABUSE PROGRAM, SOME INFORMATION MAY BE OMITTED. This clinical summary was aggregated from multiple sources. Caution should be exercised in using it in the provision of clinical care. This summary normalizes information from multiple sources, and as a consequence, information in this document may materially change the coding, format and clinical context of patient data. In addition, data may be omitted in some cases. CLINICAL DECISIONS SHOULD BE BASED ON THE PRIMARY CLINICAL RECORDS. [employer] provides no warranty or guarantee of the accuracy or completeness of information in this document.
== END | disposition home or self-care (01) ==
LOC: OPUS 15:35 → US 15:36
PROVIDERS: PCP Preventive Medicine Occupational Medicine; Referring Provider Nurse Practitioner Women's Health; Visit Provider Nurse Practitioner Women's Health
DX: R10.20 Pelvic and perineal pain unspecified side (principal)
CPT/HCPCS: 76830; 76856